=== PATIENT | female | born 1950 | race Caucasian/White ===

== ENCOUNTER → 2020-08-28 14:14 | Outpatient (POV) | payer SELFPAY | PROVIDERS: Visit Provider Dermatology | DX: Z00.00 Encounter for general adult medical examination without abnormal findings (principal) ==

== ENCOUNTER 2021-01-01 22:07 | Observation (INO) | payer MEDICARE, OTHER, SELFPAY ==
[2021-01-01 22:22] VITALS: BP 175/90; PULSE 106; RESP 18; TEMP 37.2; O2SAT 97; BMI 32.5
--- NOTE | 2021-01-01 22:28 | CT_ITS ---
PROCEDURE INFORMATION: Exam: CT Head Without Contrast Exam date and time: 01/01/2021 10:28 PM Age: 70 years old Clinical indication: Dizziness and other: Vomiting; Patient HX: Dizzy and vomiting TECHNIQUE: Imaging protocol: Computed tomography of the head without contrast. Radiation optimization: All CT scans at this facility use at least one of these dose optimization techniques: automated exposure control; mA and/or kV adjustment per patient size (includes targeted exams where dose is matched to clinical indication); or iterative reconstruction. COMPARISON: No relevant prior studies available. FINDINGS: Brain: No acute intracranial hemorrhage, mass effect or edema. No evidence of acute cortical stroke. Periventricular small vessel ischemic change. No midline shift or hydrocephalus. Diffuse parenchymal atrophy. Cerebral ventricles: No ventriculomegaly. Bones/joints: Unremarkable. No acute fracture. Paranasal sinuses: Visualized sinuses are unremarkable. No fluid levels. Mastoid air cells: Visualized sinuses and mastoid air cells are clear. Vasculature: Atherosclerotic calcifications of the carotid siphons and vertebrobasilar arteries. Soft tissues: Unremarkable. IMPRESSION: 1. No evidence of acute intracranial pathology. 2. Diffuse involutional changes and chronic ischemic small vessel white matter disease.
--- NOTE | 2021-01-01 22:28 | XR_ITS ---
PROCEDURE INFORMATION: Exam: XR Chest Exam date and time: 01/01/2021 10:28 PM Age: 70 years old Clinical indication: Other: Dizzy and vomiting; Additional info: Dizziness, nausea TECHNIQUE: Imaging protocol: XR of the chest. Views: 1 view. COMPARISON: No relevant prior studies available. FINDINGS: Lungs: Unremarkable. No consolidation. Pleural spaces: Unremarkable. No pleural effusion. No pneumothorax. Heart/Mediastinum: Unremarkable. No cardiomegaly. Bones/joints: Moderate degenerative changes of the acromioclavicular joints. Degenerative changes of the spine. IMPRESSION: No acute findings.
[2021-01-01 22:37] LABS: Basophils # 0.1 K/mm3 (0-0.2); Basophils % 0.8 % (0.1-2.0); Eosinophils # 0.1 K/mm3 (0.0-0.4); Eosinophils % 1.9 % (0.1-12.0); Hematocrit 37.1 % (37.0-47.0); Hemoglobin 12.2 g/dL (12.2-16.2); Lymphocytes # 1.7 K/mm3 (0.7-4.5); Lymphocytes % 23.1 % (10-50); Mean Corpuscular HGB Conc 32.8 g/dL (31.8-35.4); Mean Corpuscular Hemoglobin 28.5 pg (27.0-31.2); Mean Corpuscular Volume 86.8 fl (81-99); Mean Platelet Volume 7.9 fl (7.4-10.4); Monocytes # 0.3 K/mm3 (0.1-1.0); Monocytes % 3.5 % (1.7-9.3); Neutrophils # 5.4 K/mm3 (1.8-7.8); Neutrophils % 70.8 % (37.0-80.0); Platelet Count 325 K/mm3 (142-424); Red Blood Count 4.27 M/mm3 (4.20-5.40); Red Cell Distribution Width 13.7 % (11.5-17.5); White Blood Count 7.6 K/mm3 (4.8-10.8)
[2021-01-01 22:45] LABS: Alanine Aminotransferase 19 U/L (12-78); Albumin Level 4.4 g/dl (3.5-5.0); Albumin/Globulin Ratio 1.2 (1.1-1.8); Alkaline Phosphatase 127 U/L (38-126); Anion Gap 14.4 mEq/L (5-15); Aspartate Amino Transferase 23 U/L (14-36); Bilirubin,Total 0.6 mg/dl (0.2-1.3); Blood Urea Nitrogen 27 mg/dl (7-17); Calcium 9.2 mg/dl (8.4-10.2); Carbon Dioxide 25 mmol/L (22.0-30.0); Chloride 104 mmol/L (98-107); Creatinine Clearance Estimated 68 mL/min (50-200); Estimated Glomerular Filt Rate 55 ml/min (>60); GFR (African American) 66 ML/MIN (>60); Globulin 3.7 g/dL (1.3-3.2); Glucose 310 mg/dl (74-100); Potassium 4.4 mmoL/L (3.5-5.1); Sodium 139 mmol/L (136-145); Total Protein,Serum 8.1 g/dl (6.3-8.2)
[2021-01-01 23:30] VITALS: BP 171/69; PULSE 85; RESP 16; O2SAT 98
[2021-01-02] VITALS (14 sets, daily range): BP systolic 121–175; BP diastolic 59–88; PULSE 72–101; RESP 16–19; TEMP 36.7–37; O2SAT 93–98; BMI 30.9; BMI 30.8
--- NOTE | 2021-01-02 00:17 | ECG_ITS ---
APPROVED REPORT Exam: Resting ECG HR:91 bpm ECG Measurements Heart Rate 91 AXES NV 142 P 52 QRSd 90 QRS 22 QT 410 T 68 QTc 504 Conclusion Normal sinus rhythm Low voltage QRS Prolonged QT Abnormal ECG Electronically signed by : Jonathan Morrow, 01/05/2021 07:33:30
[2021-01-02 00:53] LABS: Troponin I < 0.01 ng/ml (0.00-0.034)
--- NOTE | 2021-01-02 00:58 | HMH.EDDIZZ ---
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 Diabetes mellitus complication status: with other specified complication Qualified Code(s): E11.69 - Type 2 diabetes mellitus with other specified complication Hypertensive cardiovascular disease Qualifiers: Heart failure presence: unspecified whether heart failure present Qualified Code(s): I11.9 - Hypertensive heart disease without heart failure Disposition: Admitted as Observation Condition on Discharge: Serious Referrals: Cosme Garcia MD [Primary Care Provider] - - Critical Care Critical Care Time: No Attestation: On 01/01/21, the high probability of a clinically significant, sudden or life threatening deterioration of the following system(s) required my full and direct attention, intervention and personal management. The time I documented below is in addition to time spent performing reported procedures but includes the following listed in this critical care notation. Medical Decision Making - Medical Records Medical records reviewed: Yes: I reviewed the patient's medical records. - Dae Inquiry Pt receiving controlled substance: No Vital Signs: 01/01/21 22:22 01/01/21 23:30 01/02/21 00:30 Temperature 98.9 F Temperature Source Temporal Artery Scan Pulse Rate 85 89 Pulse Rate [Right Brachial] 106 H Respiratory Rate 18 16 16 Blood Pressure 171/69 H 163/88 H Blood Pressure [Right Arm] 175/90 H Blood Pressure Mean [Right Arm] 118 Blood Pressure Source Automatic Cuff Automatic Cuff Blood Pressure Source [Right Arm] Automatic Cuff Blood Pressure Position Sitting Sitting Blood Pressure Position [Right Arm] Sitting 02 Sat by Pulse Oximetry 97 98 98 Oxygen Delivery Method Room Air Room Air - Lab Data Lab results reviewed: Yes: I reviewed the patient's lab results. Lab Results 01/01/21 22:25: WBC 7.6, RBC 4.27, Hgb 12.2, Hct 37.1, MCV 86.8, MCH 28.5, MCHC 32.8, RDW 13.7, Plt Count 325, MPV 7.9, Neut % (Auto) 70.8, Lymph % (Auto) 23.1, Harvey % (Auto) 3.5, Eos % (Auto) 1.9, Baso % (Auto) 0.8, Neut # (Auto) 5.4, Lymph # (Auto) 1.7, Harvey # (Auto) 0.3, Eos # (Auto) 0.1, Baso # (Auto) 0.1 01/01/21 22:25: Sodium 139, Potassium 4.4, Chloride 104, Carbon Dioxide 25, Anion Gap 14.4, BUN 27 H, Creatinine 1.00, Estimated Creat Clear 68, Estimated GFR 55 L, Est GFR ( Amer) 66, Glucose 310 H, Calcium 9.2, Total Bilirubin 0.6, AST 23, ALT 19, Alkaline Phosphatase 127 H, Total Protein 8.1, Albumin 4.4, Globulin 3.7 H, Albumin/Globulin Ratio 1.2 01/02/21 00:00: ESR 44 H 01/02/21 00:00: Hemoglobin A1c 10.5 H 01/02/21 22:25: Troponin I < 0.01 Result diagrams: 01/01/21 22:25 01/01/21 22:25 Orders (Tests/Meds): ED MEDICATIONS Generic Name Dose Route Start Last Admin Trade Name Freq PRN Reason Stop Dose Admin Sodium Chloride 1,000 mls @ 999 mls/hr 01/01/21 22:30 01/01/21 22:43 Sod Chlor 0.9% 1000ml Bag IV 01/01/21 23:30 999 mls/hr .Q1H1M MARIE Administration Sodium Chloride 1,000 mls @ 999 mls/hr 01/02/21 03:45 01/02/21 03:40 Sod Chlor 0.9% 1000ml Bag IV 01/02/21 04:45 999 mls/hr .Q1H1M MARIE Administration Discontinued Medications Generic Name Dose Route Start Last Admin Trade Name Freq PRN Reason Stop Dose Admin Iopamidol 100 ml 01/02/21 02:30 Iopamidol-370 (76%);100ml Bottle IV 01/02/21 02:31 ONCE ONE Meclizine HCl 25 mg 01/02/21 00:18 01/02/21 00:26 Meclizine 25mg Tablet PO 01/02/21 00:19 25 mg ONCE ONE Administration Ondansetron HCl 4 mg 01/01/21 22:29 01/01/21 22:42 Ondansetron 4mg/2ml Vial IV 01/01/21 22:30 4 mg ONCE ONE Admi
[2021-01-02 01:24] LABS: Erythrocyte Sedimentation Rate 44 mm/hr (0-30)
--- NOTE | 2021-01-02 01:41 | CT_ITS ---
PROCEDURE INFORMATION: Exam: CT Angiography Neck With Contrast Exam date and time: 01/02/2021 1:41 AM Age: 70 years old Clinical indication: Dizziness and giddiness and other: Vomiting; Patient HX: Dizzy vomiting TECHNIQUE: Imaging protocol: Computed tomography angiography of the neck with contrast. 3D rendering (Not supervised by radiologist): MIP and/or 3D reconstructed images were created by the technologist. Radiation optimization: All CT scans at this facility use at least one of these dose optimization techniques: automated exposure control; mA and/or kV adjustment per patient size (includes targeted exams where dose is matched to clinical indication); or iterative reconstruction. Contrast material: ISOVUE 370; Contrast volume: 100 ml; Contrast route: INTRAVENOUS (IV); COMPARISON: No relevant prior studies available. FINDINGS: Right common carotid artery: No stenosis. No dissection or occlusion. Right internal carotid artery: Atherosclerotic disease within the right-sided internal carotid artery bulb that results in stenosis measuring 80%. There is good distal flow. There is no aneurysm. Right external carotid artery: No occlusion or stenosis of the origin. Right vertebral artery: No stenosis. No dissection or occlusion. Left common carotid artery: No stenosis. No dissection or occlusion. Left internal carotid artery: Atherosclerotic disease within the left-sided internal carotid artery bulb that results in stenosis measuring 90%. There is good distal flow. There is no aneurysm. Left external carotid artery: No occlusion or stenosis of the origin. Left vertebral artery: No stenosis. No dissection or occlusion. Bones/joints: No acute fracture. Soft tissues: Normal. No significant soft tissue swelling. IMPRESSION: 1. Severe atherosclerotic disease within right-sided internal carotid artery bulb that results in stenosis measuring 80%. 2. Severe atherosclerotic disease within left-sided internal carotid artery bulb that results in stenosis measuring 90%. 3. The remainder of the vascular structures are unremarkable. There is no other significant stenosis. There is no occlusion or aneurysm. REFERENCES: NASCET CRITERIA. The degree of internal carotid artery stenosis is based on NASCET criteria. Normal is no stenosis. Mild is less than 50% stenosis. Moderate is 50-69% stenosis. Severe is 70% to 99% stenosis. Total occlusion is no detectable patent lumen.
--- NOTE | 2021-01-02 01:41 | CT_ITS ---
PROCEDURE INFORMATION: Exam: CT Angiography Head With Contrast, Arteriography Exam date and time: 01/02/2021 1:41 AM Age: 70 years old Clinical indication: Dizziness and giddiness and other: Vomiting; Patient HX: Dizzy and vomiting TECHNIQUE: Imaging protocol: Computed tomography angiography of the head with contrast. Exam focused on the arteries. 3D rendering (Not supervised by radiologist): MIP and/or 3D reconstructed images were created by the technologist. Radiation optimization: All CT scans at this facility use at least one of these dose optimization techniques: automated exposure control; mA and/or kV adjustment per patient size (includes targeted exams where dose is matched to clinical indication); or iterative reconstruction. Contrast material: ISOVUE 370; Contrast volume: 100 ml; Contrast route: INTRAVENOUS (IV); COMPARISON: CT HEAD/BRAIN WO CON 01/01/2021 10:50 PM FINDINGS: ANTERIOR CIRCULATION: Right internal carotid artery: Unremarkable. Intracranial segment is patent with no significant stenosis. No aneurysm. Right middle cerebral artery: Unremarkable. No occlusion or significant stenosis. No aneurysm. Right anterior cerebral artery: Unremarkable. No occlusion or significant stenosis. No aneurysm. Left internal carotid artery: Unremarkable. Intracranial segment is patent with no significant stenosis. No aneurysm. Left middle cerebral artery: Unremarkable. No occlusion or significant stenosis. No aneurysm. Left anterior cerebral artery: Unremarkable. No occlusion or significant stenosis. No aneurysm. POSTERIOR CIRCULATION: Right vertebral artery: Unremarkable. No occlusion or significant stenosis. No aneurysm. Left vertebral artery: Unremarkable. No occlusion or significant stenosis. No aneurysm. Basilar artery: Unremarkable. No occlusion or significant stenosis. No aneurysm. Right posterior cerebral artery: Unremarkable. No occlusion or significant stenosis. No aneurysm. Left posterior cerebral artery: Unremarkable. No occlusion or significant stenosis. No aneurysm. Veins: There is no venous sinus thrombosis. Brain: No definite mass, mass effect, or midline shift. Cerebral ventricles: No ventriculomegaly. Bones/joints: Unremarkable. No acute fracture. Soft tissues: Unremarkable. IMPRESSION: No evidence for a embolism, dissection, aneurysm, or venous sinus thrombosis. There is no significant stenosis.
--- NOTE | 2021-01-02 03:00 | PC.NURSE ---
patient to ct
[2021-01-02 04:03] LABS: Hemoglobin A1C 10.5 % (4.0-6.0)
[2021-01-02 05:20] LABS: Troponin I < 0.01 ng/ml (0.00-0.034)
--- NOTE | 2021-01-02 05:32 | PC.NURSE ---
patient up to floor via stretcher.
[2021-01-02 05:38] LABS: INR 0.89 (0.9-1.1); Prothrombin Time 10.6 seconds (10.1-12.5)
--- NOTE | 2021-01-02 08:00 | CA_ITS ---
APPROVED REPORT EXAM: Comprehensive 2D, Doppler, and color-flow Echocardiogram Glue Cook: ANTONELLA Barnes, RVS Ht: 5 ft 3 in Wt: 184lbs BSA: 1.87 BP: 163/88 mmHg Indications: Tia's, Near syncope, carotid stenosis, murmur 2D Dimensions IVSd 1.04 cm LVEF (Visual) 56.70 % PWd 1.04 cm LA Volume 68.50 mL LVDd 4.56 cm LA Volume Index 36.60 mL/m2 (M/F) 16-34 LVDs 3.21 cm LVOT 2.08 cm (M/F) 1.5-2.5 M-Mode Dimensions LA Diam 4.04 cm (1.9-4.0) Ao Diam 3.16 cm (2.0-3.7) EPSs 0.50 cm TAPSE 2.38 (<1.7) LV Diastology E Decel Time 150.00 (160-240 msec) E/A Ratio 2.48 MED E' 8.10 (< 7 cm/sec) MED A' 11.30 cm/s E'/MED E' Ratio 42.64 (>14) LAT E' 8.40 (<10 cm/sec) LAT A' 14.20 cm/s E/LAT E' Ratio 41.12 (>14) Aortic Valve LVOT Max 112.00 (70-110 cm/s) LVOT VTI 22.55 cm AoV Peak Saad. 191.00 (50-130 cm/s) AO Peak GR. 14.60 mmHg AO Mean GR. 8.30 (<5 mmHg) AO VTI 42.33 (18-25 cm) HOME (VTI) 1.81 (2.5-4.5 cm2) Mitral Valve MV E Max Saad. 345.00 (40-130 cm/s) MV A Velocity 139.00 (40-130 cm/s) E/A Ratio 2.48 MV Decel. Time 150.00 (160-240 ms) MV Mean Gr. 3.20 (<2mmHg) MV PHT 44.00 ms Pulmonary Valve PV Peak Velocity 82.00 (50-150 cm/s) Tricuspid Valve TR P. Velocity 286.00 cm/s RAP Estimate 10.00 mmHg RVSP 42.70 mmHg Left Ventricle Left atrium is moderately enlarged, left ventricle is normal size, mild concentric left ventricular hypertrophy, visually estimated ejection fraction 55% with no regional wall motion abnormality, grade 1 diastolic dysfunction seen with tissue Doppler evidence of raise left atrial pressure. Right Ventricle Right atrium and right ventricle are mildly enlarged with normal contractility. Aortic Valve Aortic valve is minimally thickened and fibrosed, there is no aortic stenosis or aortic insufficiency. Mitral Valve Mitral valve has mitral annular calcification, leaflets are minimally thickened, there is moderate mitral regurgitation. Tricuspid Valve Tricuspid grossly normal, there is mild tricuspid regurgitation, calculated right ventricular systolic pressure is 42 mmHg. Pulmonic Valve Pulmonic valve is poorly visualized. Great Vessels Aortic root is normal size. Inferior vena cava is not well visualized. Pericardium No significant pericardial effusion noted. Conclusion 1. Biatrial enlargement, normal left ventricular size, mild concentric left ventricular hypertrophy, visually estimated ejection fraction 55% with no regional wall motion abnormality, grade 1 diastolic dysfunction seen with tissue Doppler evidence of raise left atrial pressure. 2. Mildly enlarged right ventricle with normal contractility. 3. Moderate mitral and mild tricuspid regurgitation, calculated right ventricular systolic pressure is 42 mmHg. 4. No significant pericardial effusion noted. Electronically signed by : Nirav Garcia, 01/03/2021 15:37:31
--- NOTE | 2021-01-02 08:00 | CA_ITS ---
APPROVED REPORT Shader And Toner: [id number] Laterality: Bilateral Study Quality: Technically Limited, Due to body habitus. Indications: tia Risk Factors Hypertension: TIA/CVA History Doppler Spectral Velocity Analysis ECA (R) 138.10/31.50 cm/s ECA (L) 141.60/10.60 cm/s Katelyn (R) 84.70/24.70 cm/s dICA (L) 88.40/37.20 cm/s Katelyn (L) 113.70/44.30 cm/s dCCA (R) 74.80/19.50 cm/s pICA (L) 300.50/92.50 cm/s pCCA (R) 109.10/15.00 cm/s Vert (R) 96.10/21.80 cm/s dCCA (L) 79.90/17.30 cm/s pCCA (L) 67.40/18.30 cm/s Vert (L) 40.60/10.70 cm/s ICA/CCA 3.76 Findings Duplex evaluation demonstrates antegrade flow of the bilateral Vertebral Arteries. Due to carotid bifuracation location, the proxinmal Right Internal carotid artery demonstrates heavy acoustic shadowing and higher percent stenosis cannot be ruled out. CTA calculates an 80% right carotid stenosis. Duplex evaluation demonstrates stenosis of the left proximal internal carotid artery in the range of 70-99% with PSV =140 cm/sec, EDV =100 cm/sec, or IC/CC Ratio =4.0. Conclusion Duplex evaluation demonstrates antegrade flow of the bilateral Vertebral Arteries. Due to carotid bifuracation location, the proxinmal Right Internal carotid artery demonstrates heavy acoustic shadowing and higher percent stenosis cannot be ruled out. CTA calculates an 80% right carotid stenosis. Duplex evaluation demonstrates stenosis of the left proximal internal carotid artery in the range of 70-99% with PSV =140 cm/sec, EDV =100 cm/sec, or IC/CC Ratio =4.0. Electronically signed by : Edvin Frey MD 01/02/2021 16:43:25
[2021-01-02 08:11] LABS: POC Glucose,Bedside 202 (70-110)
--- NOTE | 2021-01-02 08:17 | P.CONPHA_ITS ---
[facility] Pharmacy VTE Monitoring - Patient Demographics Admission date: 01/02/21 Report Date: 01/02/21 Time: 08:17 Allergies/Adverse Reactions: Patient Allergies No Known Allergies Allergy (Verified 06/26/19 18:04) Height: 1.6 m Weight: 79.038 kg Patient Problems: Current Active Problems Transient cerebral ischemia (Acute) Carotid stenosis, bilateral (Acute) Diabetes mellitus (Acute) Hypertensive cardiovascular disease (Acute) Obesity (BMI 30.0-34.9) (Acute) - VTE Risk Labs: VTE Related Lab Results Hgb 12.2 g/dL (12.2-16.2) 01/01/21 22:25 Hct 37.1 % (37.0-47.0) 01/01/21 22:25 Plt Count 325 K/mm3 (142-424) 01/01/21 22:25 PT 10.6 seconds (10.1-12.5) 01/02/21 00:00 INR 0.89 (0.9-1.1) L 01/02/21 00:00 BUN 27 mg/dl (7-17) H 01/01/21 22:25 Creatinine 1.00 mg/dl (0.52-1.04) 01/01/21 22:25 Estimated Creat Clear 68 mL/min (50-200) 01/01/21 22:25 Was VTE Risk Assessment Performed: Yes VTE Score: 1 VTE Risk Level: Very Low Risk Clinical Trial Participant: No - Prophylaxis VTE Prophylaxis Ordered?: Yes Types of VTE Prophylaxis: TEDS Knee High
[2021-01-02 08:44] LABS: Troponin I < 0.01 ng/ml (0.00-0.034)
--- NOTE | 2021-01-02 09:01 | HMH.HP ---
*Admission Date: 01/02/21 <Mira Drummond - 01/02/21 09:18> *Chief complaint: 01/01/2021 <Mira Drummond - 01/02/21 09:18> *History of present illness: Ms. Fernandez is a 70-year-old female with a history of type 2 diabetes mellitus, hypertension, and hyperlipidemia who was brought to the [facility] emergency room for evaluation by her family due to neuro changes. Daughter is is in the room at this time and assist with history of present illness. She states they looked out of the window and saw her mother leaning over steering wheel in her car. When they went to where she was alert but felt dizzy and nauseated. She did vomit. After this she did get out of the car walk around the car and her legs were very weak. She then went home and then when family was talking with her on the phone they found her to have garbled speech at that time they insisted on taking your to the emergency room.Patient states she has had these spells in the past normally with migraines. At that time she has an abrupt onset of the dizziness with nausea and vomiting and cannot see. She did feel that this episode was different. Blood pressure was found to be elevated at home.Leg weakness persisted although she was able to use all her extremities. She did not feel that she had difficulty with speaking and was swallowing as usual. With evaluation in the emergency room Blood pressure initially was 175/90. A1c was noted to be 10.5. She was given 2 L of IV fluids. She was also given meclizine and Zofran along with promethazine.Chest x-ray showed no acute findings. CT of the head showed no evidence of acute intracranial pathology with diffuse involutional changes and chronic ischemia of the small vessel white matter.CT angiogram showed no evidence of embolism dissection or aneurysm or venous sinus thrombosisCT angiogram of the neck revealedSevere atherosclerotic disease with right-sided internal carotid artery bulb that results in stenosis measuring at 80%. Severe atherosclerotic disease within left sided internal carotid artery bulb that results in stenosis measuring 90%. <BhanuMira - 01/02/21 09:18> [facility] History Medical History: Reports:: Diabetes Mellitus Type 2, Hyperlipidemia, Hypertension Denies:: Aneurysm, Anxiety, Arrhythmia, Cancer, Diabetes Mellitus Type 1, MRSA <Mira Drummond 01/02/21 09:18> *Have you ever received a pneumonia vaccine?: Yes <Mira Drummond 01/02/21 09:18> *Have you received a flu vaccine this season?: Yes <DrummondMira 01/02/21 09:18> Other Surgeries: Yes: No Previous Surgery <DrummondMira Tamanna 01/02/21 09:18> Amputation: No <DrummondMira 01/02/21 09:18> Fractures: No <DrummondMira 01/02/21 09:18> - *Social History Last grade of school completed: High school graduate <DrummondMira 01/02/21 09:18> Smoking Status: Never smoker <DrummondMira - 01/02/21 09:18> Alcohol Intake: never <DrummondMira - 01/02/21 09:18> *Occupational Status:: retired <BhanuMira - 01/02/21 09:18> Housing: house <DrummnodMira 01/02/21 09:18> Household Members: family <BhanuMira Tamanna 01/02/21 09:18> *Travel in the last 8 weeks: None <DrummondMira 01/02/21 09:18> Family Hx:: Diabetes <Drummond,Mira 01/02/21 09:18> Review of Systems - Constitutional Denies fever(s) <Drummond,Mira 01/02/21 09:18> - Eyes Reports blurry vision, Reports change in vision <Mira Drummond 01/02/21 09:18> - ENT Reports dizziness, Denies ear pain, Denies sore throat <Mira Drummond 01/02/21 09:18> - *Cardiovascular Denies chest pain, Denies shortness of breath, Denies irregular heart rhythm <Mira Drummond 01/02/21 09:18> - *Respiratory Denies chest congestion, Denies cough, Denies shortness of breath <Mira Drummond 01/02/21 09:18> - *Gastrointestinal Denies abdominal pain, Denies constipation, Denies cramping, Denies loose stools, Denies heartburn <Mira Drummond 01/02/21 09:18> - *Genitourinary Denies diff
--- NOTE | 2021-01-02 10:30 | HMH.PHAINT ---
VERIFIED HOME MEDICATION LIST WITH [employer] MAIL ORDER MEDICATION LIST
[2021-01-02 12:39] LABS: POC Glucose,Bedside 107 (70-110)
--- NOTE | 2021-01-02 16:27 | PC.NURSE ---
Pt has been pleasant and cooperative this shift. A&O X4. No complaints of pain or SOA. Pt is on room air with sats. >90%. Lungs CTA. No edema noted. Skin is C/D/I. Telemetry reveals NSR. Pt ambulates with assistance X1 to/from the bathroom and throughout the room. Urine is clear and yellow. No BM this shift. Appetite is good and pt eats the majority of all meals. FSBS results have been 107 and 326. 20 G peripheral IV in the LT forearm is patent and infusing NS@ 75 ML/HR. VSS. Call light within reach. Will continue to monitor.
[2021-01-02 18:21] LABS: POC Glucose,Bedside 326 (70-110)
[2021-01-02 20:10] LABS: POC Glucose,Bedside 280 (70-110)
[2021-01-03] VITALS: PULSE 80
--- NOTE | 2021-01-03 03:59 | PC.NURSE ---
Cruz 70 y/o female admitted for dizziness and weakness. Patient oriented times four. Patient did not c/o pain this shift. Patient on maintenance fluids 75 ml/hr. Patient stated that she was still slightly dizzy while awake and required the assistance of 1 to ambulate to bathroom. Will continue to monitor for any acute changes.
[2021-01-03 04:00] VITALS: BP 124/82; PULSE 80; PULSE 91; RESP 18; TEMP 36.9; O2SAT 97
[2021-01-03 05:10] VITALS: BMI 31.6
[2021-01-03 06:47] LABS: Basophils # 0.1 K/mm3 (0-0.2); Basophils % 0.6 % (0.1-2.0); Eosinophils # 0.6 K/mm3 (0.0-0.4); Eosinophils % 6.5 % (0.1-12.0); Hemoglobin 10.9 g/dL (12.2-16.2); Lymphocytes # 2.5 K/mm3 (0.7-4.5); Lymphocytes % 29.8 % (10-50); Mean Corpuscular HGB Conc 33.1 g/dL (31.8-35.4); Mean Corpuscular Hemoglobin 28.9 pg (27.0-31.2); Mean Corpuscular Volume 87.4 fl (81-99); Mean Platelet Volume 8.4 fl (7.4-10.4); Monocytes # 0.5 K/mm3 (0.1-1.0); Monocytes % 5.4 % (1.7-9.3); Neutrophils # 4.9 K/mm3 (1.8-7.8); Neutrophils % 57.7 % (37.0-80.0); Platelet Count 292 K/mm3 (142-424); Red Blood Count 3.77 M/mm3 (4.20-5.40); Red Cell Distribution Width 13.8 % (11.5-17.5); White Blood Count 8.4 K/mm3 (4.8-10.8)
[2021-01-03 06:55] LABS: Anion Gap 9.2 mEq/L (5-15); Blood Urea Nitrogen 21 mg/dl (7-17); Carbon Dioxide 24 mmol/L (22.0-30.0); Chloride 108 mmol/L (98-107); Creatinine Clearance Estimated 66 mL/min (50-200); Estimated Glomerular Filt Rate 71 ml/min (>60); GFR (African American) 86 ML/MIN (>60); Glucose 210 mg/dl (74-100); Potassium 4.2 mmoL/L (3.5-5.1); Sodium 137 mmol/L (136-145)
[2021-01-03 07:02] LABS: Calcium 8.2 mg/dl (8.4-10.2)
[2021-01-03 07:58] LABS: POC Glucose,Bedside 214 (70-110)
[2021-01-03 08:00] VITALS: BP 121/67; PULSE 80; PULSE 90; RESP 18; TEMP 36.8; O2SAT 97
--- NOTE | 2021-01-03 08:40 | HMH.ACPN2 ---
<Yanet Mcdowell - Last Filed: 01/03/21 08:40> Internal Medicine - PN: Subj *Date: 01/03/21 *Time: 08:40 Interval history: Patient is feeling much better today. She denies any pain and states she slept well last night. She is tolerating her diet. She states she feels like she had heatstroke and this is what caused most of her symptoms. She is anxious for discharge today. Exam Vital signs and Labs for Last 24 Hours: Temp Pulse Resp BP Pulse Ox 98.3 F 90 18 121/67 97 01/03/21 08:00 01/03/21 08:00 01/03/21 08:00 01/03/21 08:00 01/03/21 08:00 Laboratory Results - last 24 hr 01/02/21 08:08: Troponin I < 0.01 01/02/21 12:18: POC Glucose 107 01/02/21 16:00: POC Glucose 326 H* 01/02/21 19:46: POC Glucose 280 H 01/03/21 05:27: POC Glucose 214 H 01/03/21 06:12: WBC 8.4, RBC 3.77 L, Hgb 10.9 L, Hct 33.0 L, MCV 87.4, MCH 28.9, MCHC 33.1, RDW 13.8, Plt Count 292, MPV 8.4, Neut % (Auto) 57.7, Lymph % (Auto) 29.8, Duval % (Auto) 5.4, Eos % (Auto) 6.5, Baso % (Auto) 0.6, Neut # (Auto) 4.9, Lymph # (Auto) 2.5, Duval # (Auto) 0.5, Eos # (Auto) 0.6 H, Baso # (Auto) 0.1 01/03/21 06:12: Sodium 137, Potassium 4.2, Chloride 108 H, Carbon Dioxide 24, Anion Gap 9.2, BUN 21 H, Creatinine 0.80, Estimated Creat Clear 66, Estimated GFR 71, Est GFR ( Amer) 86 D, Glucose 210 H, Calcium 8.2 L D I & O for Last 24 hours: Intake & Output 12/31/20 01/01/21 01/02/21 01/03/21 11:59 11:59 11:59 11:59 Intake Total 2500 / 2500 2690 / 2690 Balance 2500 / 2500 2690 / 2690 Weight 174 lb 4 oz 178 lb 4 oz Microbiology Reports for the Last 24 Hours: Microbiology 01/02/21 02:05 Nasopharyngeal Coronavirus COVID-19 PCR - Final - Constitutional no acute distress - *Routine Respiratory Exam Present: CTA bilaterally - *Routine Cardiovascular Exam Present: RRR - *Routine Abdominal Exam Present: soft, normoactive bowel sounds. Absent: tenderness - *Routine Extremities Exam Absent: cyanosis, clubbing, edema - *Routine Skin Exam Present: warm. 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 Diabetes mellitus complication status: with other specified complication Qualified Code(s): E11.69 - Type 2 diabetes mellitus with other specified complication Category: Medical Code(s): E11.9 - Type 2 diabetes mellitus without complications (3) Hypertensive cardiovascular disease Status: Chronic Qualifiers: Heart failure presence: unspecified whether heart failure present Qualified Code(s): I11.9 - Hypertensive heart disease without heart failure Category: Medical Code(s): I11.9 - Hypertensive heart disease without heart failure (4) Obesity (BMI 30.0-34.9) Status: Chronic Category: Medical Code(s): E66.9 - Obesity, unspecified (5) Transient cerebral ischemia Status: Acute Qualifiers: Transient cerebral ischemia type: unspecified Qualified Code(s): G45.9 - Transient cerebral ischemic attack, unspecified Category: Medical Code(s): G45.9 - Transient cerebral ischemic attack, unspecified (6) Hyperlipidemia Status: Acute Category: Medical Code(s): E78.5 - Hyperlipidemia, unspecified - Assessment and plan all Dx Assessment and Plan for all problems:: Can likely discharge today and will need follow-up in [place] due to her carotid stenosis. <Cosme Garcia - Last Filed: 01/03/21 08:54> Internal Medicine - PN: Subj *Date: 01/03/21 *Time: 08:53 Exam Vital signs and Labs for Last 24 Hours: Temp Pulse Resp BP Pulse Ox 98.3 F 90 18 121/67 97 01/03/21 08:00 01/03/21 08:00 01/03/21
--- NOTE | 2021-01-04 08:27 | HMH.DCSUM ---
General - General Admission date:: 01/02/21 Discharge date: 01/03/21 HPI HPI: Ms. Fernandez is a 70-year-old female with a history of type 2 diabetes mellitus, hypertension, and hyperlipidemia who was brought to the [facility] emergency room for evaluation by her family due to neuro changes. Daughter is is in the room at this time and assist with history of present illness. She states they looked out of the window and saw her mother leaning over steering wheel in her car. When they went to where she was alert but felt dizzy and nauseated. She did vomit. After this she did get out of the car walk around the car and her legs were very weak. She then went home and then when family was talking with her on the phone they found her to have garbled speech at that time they insisted on taking your to the emergency room.Patient states she has had these spells in the past normally with migraines. At that time she has an abrupt onset of the dizziness with nausea and vomiting and cannot see. She did feel that this episode was different. Blood pressure was found to be elevated at home.Leg weakness persisted although she was able to use all her extremities. She did not feel that she had difficulty with speaking and was swallowing as usual. With evaluation in the emergency room Blood pressure initially was 175/90. A1c was noted to be 10.5. She was given 2 L of IV fluids. She was also given meclizine and Zofran along with promethazine.Chest x-ray showed no acute findings. CT of the head showed no evidence of acute intracranial pathology with diffuse involutional changes and chronic ischemia of the small vessel white matter. CT angiogram showed no evidence of embolism dissection or aneurysm or venous sinus thrombosis. CT angiogram of the neck revealed severe atherosclerotic disease with right-sided internal carotid artery bulb that results in stenosis measuring at 80%. Severe atherosclerotic disease within left sided internal carotid artery bulb that results in stenosis measuring 90%. Hospital Course Hospital Course: Patient was admitted and started on IV fluids, meclizine, and Zofran. Her blood pressure did improve. An echo and carotid ultrasound were both ordered and she was started on sliding scale insulin. Her carotid ultrasound showed 80% stenosis on the right and 70 to 99% on the left. Her echo showed an EF of 55% with grade 1 diastolic dysfunction and a right ventricular systolic pressure of 42 mmHg. By 01/03/2021, the patient felt much better she denied any pain and slept well. She was tolerating her diet. She was up and moving around her room and had no further dizziness or headache. She attributed her symptoms to heatstroke as she had been mowing about 4 acres before she started feeling bad. She was anxious for discharge. Her blood pressure was well controlled and she was asymptomatic, therefore she was stable to be discharged and will follow up in the office of [facility]. She will need evaluation of her carotid artery stenosis on an outpatient basis. Objective Vital signs: Temp Pulse Resp BP Pulse Ox 98.3 F 90 18 121/67 97 01/03/21 08:00 01/03/21 08:00 01/03/21 08:00 01/03/21 08:00 01/03/21 08:00 Narrative: - Constitutional no acute distress <Mira Drummond - 01/02/21 09:18> Comments: Lying still in the bed with her eyes closed.. With movement she becomes dizzy and nauseated. The light hurts her eyes. - *Routine HEENT Exam Head: Present: normocephalic, atraumatic Eye: Present: PERRL. Absent: conjunctival icterus, scleral injection ENT: Present: mucous membranes moist, oropharynx clear - *Routine Neck Exam Present: supple. Absent: carotid bruit, lymphadenopathy, thyromegaly - *Routine Respiratory Exam Present: CTA bilaterally (Anteriorly and posteriorly) - *Routine Cardiovascular Exam Present: RRR - *Routine Abdominal Exam Present: soft
== END 2021-01-03 11:35 | disposition home or self-care (01) ==
LOC: ER 01-02 04:29 → 2ND 01-02 04:55
PROVIDERS: Admitting Provider Family Medicine; Emergency Provider Emergency Medicine; PCP Family Medicine; Visit Provider Family Medicine
DX: I65.23 Occlusion and stenosis of bilateral carotid arteries (principal); Z68.31 Body mass index [BMI] 31.0-31.9, adult; E11.69 Type 2 diabetes mellitus with other specified complication; I10 Essential (primary) hypertension; Z79.84 Long term (current) use of oral hypoglycemic drugs; E78.5 Hyperlipidemia, unspecified
CPT/HCPCS: 36415; 70450; 70496; 70498; 71045; 80048; 80053; 82962; 83036; 84484; 85025; 85610; 85651; 93005; 93306; 93880; 96365; 99284; G0378; J2405; U0003

== ENCOUNTER 2021-01-25 11:30 | Emergency (ER) | payer MEDICARE, OTHER, SELFPAY ==
[2021-01-25 11:32] VITALS: BP 152/87; PULSE 96; RESP 18; TEMP 36.7; O2SAT 98; BMI 31.1
--- NOTE | 2021-01-25 11:33 | PC.NURSE ---
DENIS MITCHELL at assessing pt ER explained to pt/family that pt would need to be transferred r/t we are unable to do a CT on pt at this time. pt is verbalizes understanding and is agreeable to transfer.
--- NOTE | 2021-01-25 11:38 | HMH.EDGENADL ---
ED Disposition Clinical Impression: Cerebrovascular accident Qualifiers: CVA mechanism: unspecified Qualified Code(s): I63.9 - Cerebral infarction, unspecified Disposition: Xfer Short-Term Hosp Condition on Discharge: Fair - Critical Care Critical Care Time: Yes Attestation: On 01/25/21, the high probability of a clinically significant, sudden or life threatening deterioration of the following system(s) required my full and direct attention, intervention and personal management. The time I documented below is in addition to time spent performing reported procedures but includes the following listed in this critical care notation. Total Critical Care Time: 30 Vital system(s) involved:: Circulatory Failure, Central Nervous System, Respiratory Failure My critical care processes included: Assessment & monitoring of V/S, Initial and Re-exams, Data Review/Interpretation, Coordinating Care, Medication Orders and management, Documentation Medical Decision Making - Medical Records Medical records reviewed: Yes: I reviewed the patient's medical records. - Dae Inquiry Pt receiving controlled substance: No Vital Signs: 01/25/21 11:32 Temperature 98.1 F Temperature Source Oral Pulse Rate [Right Radial] 96 H Respiratory Rate 18 Blood Pressure [Right Arm] 152/87 H Blood Pressure Mean [Right Arm] 108 Blood Pressure Source [Right Arm] Automatic Cuff Blood Pressure Position [Right Arm] Sitting 02 Sat by Pulse Oximetry 98 Oxygen Delivery Method Room Air - Lab Data Lab Results 01/25/21 11:39: POC Glucose 204 H Medical Decision Narrative: Patient here with altered sensation left lower face, known recently diagnosed carotid artery disease. Concern for possible TIA. She does not have involvement of the forehead, unlikely Capellan's palsy. She is well out of the TPA window. Unfortunately our CT scanner is down, so we will need to transfer her to a facility with appropriate imaging capabilities. They prefer . [facility]inger[facility] 204. Contacted neurology at , Dr. Mac , who recommended sending to as a stroke alert. General Adult HPI - General Stated complaint: mouth numbness Time Seen by Provider: 01/25/21 11:39 Mode of Arrival: Ambulatory Source of Information: Patient Limitations: No Limitations - History of Present Illness HPI narrative: A 70-year-old female with a past medical history significant for hypertension, hyperlipidemia, DM who takes baby aspirin daily, no other anticoagulation or antiplatelet therapy, who presents to the emergency department for left lower face numbness that she noticed at around 730 this morning when she woke up. Last known normal was at 12:30 AM when she went to bed last night. No recent head injuries, no history of brain cancer or surgery. She was recently diagnosed with bilateral carotid artery stenosis (saw PCP for recent syncopal episode while working in the heat, imaging showed carotid artery stenosis and was subsequently referred to Dr. Esquivel) and was told that she needs a carotid endarterectomy, but that surgery is not yet planned. She denies any lateralizing motor or sensory changes in her extremities. Symptoms have improved since 730 this morning, but she still does not feel normally on the left lower half of her face. She also feels like her head is heavy and feels fatigued. Daughter notes that her smile was asymmetrical this morning. No recent fevers, vomiting, diarrhea or urinary symptoms. - Related Data Home Medications Medication Instructions Recorded Confirmed Atorvastatin Calcium [Lipitor 40mg 40 mg PO HS 01/02/21 01/02/21 Tab] Lisinopril/Hydrochlorothiazide 1 tab PO DAILY 01/02/21 01/02/21 [Lisinopril-Hctz 20-12.5 mg Tab*] Metformin HCl [Metformin 1000mg 1,000 mg PO BID 01/02/21 01/02/21 Tablets] glipiZIDE [Glipizide ER] 10 mg PO BID 01/02/21 01/02/21 Allergies Allergy/AdvReac Type Severity Reaction Status Date / Time No Known Aller
--- NOTE | 2021-01-25 11:39 | PC.NURSE ---
fsbs 204
--- NOTE | 2021-01-25 11:41 | PC.NURSE ---
contacted [facility] to speak with stroke team
[2021-01-25 11:45] LABS: POC Glucose,Bedside 204 (70-110)
--- NOTE | 2021-01-25 11:52 | PC.NURSE ---
DENIS MITCHELL speaking with Dr. Mac at
--- NOTE | 2021-01-25 11:54 | PC.NURSE ---
notified [facility] of transfer
--- NOTE | 2021-01-25 12:06 | PC.NURSE ---
report called to tank hoffmann rn at er
--- NOTE | 2021-01-25 12:12 | PC.NURSE ---
report given to [facility]
[2021-01-25 12:13] VITALS: BP 177/95; PULSE 92; RESP 18; TEMP 36.7; O2SAT 96
== END 2021-01-25 12:12 | disposition short-term general hospital (02) ==
PROVIDERS: Emergency Provider Emergency Medicine; PCP Family Medicine
DX: I63.9 Cerebral infarction, unspecified (principal); R29.701 NIHSS score 1; I10 Essential (primary) hypertension; E78.5 Hyperlipidemia, unspecified; I65.23 Occlusion and stenosis of bilateral carotid arteries; Z79.899 Other long term (current) drug therapy
CPT/HCPCS: 82962; 93005; 99283

== ENCOUNTER 2021-10-18 09:47 | Emergency (ER) | payer MEDICARE, SELFPAY ==
[2021-10-18 10:05] VITALS: BP 156/78; PULSE 93; RESP 18; TEMP 36.7; O2SAT 98; BMI 30.9
[2021-10-18 10:19] VITALS: BP 156/78; PULSE 93; RESP 18; TEMP 36.7; O2SAT 98
--- NOTE | 2021-10-18 10:19 | HMH.EDUTC ---
[facility] [place] Disposition Clinical Impression: Encounter for laboratory testing for COVID-19 virus Disposition: Home, Self-Care Condition on Discharge: Good Instructions: DI for COVID-19 (Suspected or Confirmed ), Preventing the Spread of Coronavirus Discharge Instructions Referrals: Cosme Garcia MD [Primary Care Provider] - As needed Medical Decision Making - Dae Inquiry Pt receiving controlled substance: No Dae was queried for this patient: No Vital Signs: 10/18/21 10:05 Temperature 98.1 F Temperature Source Oral Pulse Rate [Right Brachial] 93 H Respiratory Rate 18 Blood Pressure [Right Arm] 156/78 H Blood Pressure Mean [Right Arm] 104 Blood Pressure Source [Right Arm] Automatic Cuff Blood Pressure Position [Right Arm] Sitting 02 Sat by Pulse Oximetry 98 Oxygen Delivery Method Room Air [facility] [place] HPI - General Stated complaint: covid test for procedure Time Seen by Provider: 10/18/21 10:19 Mode of Arrival: Ambulatory Source of Information: Patient Limitations: No Limitations Description of Symptoms (Recalled from Triage Doc. by RN): PATIENT NEEDING COVID TEST FOR SURGERY HEENT Symptoms (Recalled from RN notes): No Resp Symptoms (Recalled from RN notes): No Skin Symptoms (Recalled from RN notes): No MS Symptoms (Recalled from RN notes): No Functional Status (Recalled from RN notes): WNL - History of Present Illness Provider Complaint: Patient states that she was needing a COVID test for surgery States that she is not having any symptoms and but needed to get the test - Related Data Home Medications Medication Instructions Recorded Confirmed Atorvastatin Calcium [Lipitor 40mg 40 mg PO HS 01/02/21 01/02/21 Tab] Lisinopril/Hydrochlorothiazide 1 tab PO DAILY 01/02/21 01/02/21 [Lisinopril-Hctz 20-12.5 mg Tab*] Metformin HCl [Metformin 1000mg 1,000 mg PO BID 01/02/21 01/02/21 Tablets] glipiZIDE [Glipizide ER] 10 mg PO BID 01/02/21 01/02/21 Allergies Allergy/AdvReac Type Severity Reaction Status Date / Time No Known Allergies Allergy Verified 06/26/19 18:04 - Worker's Comp Is this a Worker's Comp case?: No [facility] History - Hepatitis A Screen Drug use history?: No High risk sexual behaviors?: No History of sexually transmitted infection?: No Currently employed?: No Childcare worker?: No Do you have indoor plumbing?: Yes Do you have electricity?: Yes Attestation statement:: This patient has been screened for Hepatitis A risk factors. I have reviewed the patient's past medical history: Yes Medical History: Reports:: Diabetes Mellitus Type 2, Hyperlipidemia, Hypertension Denies:: Aneurysm, Anxiety, Arrhythmia, Cancer, Diabetes Mellitus Type 1, MRSA Other Surgeries: Yes: No Previous Surgery Amputation: No Fractures: No - Social History Smoking Status: Never smoker Alcohol Intake: never Occupational Status: retired Housing: house Household Members: family - Psychiatric History Pschychiatric History:: Denies:: Anxiety Family Hx:: Diabetes ROS Obtained: Yes All systems reviewed & no additional complaints, Yes Systems reviewed as appropriate & no additional complaints - Constitutional Constitutional: Reports system reviewed and no additional complaints, except as docu, Denies body ache, Denies chills, Denies fever(s) - ENT Ears, Nose, Mouth, and Throat: Reports system reviewed and no additional complaints, except as docu - Cardiovascular Cardiovascular: Reports system reviewed and no additional complaints, except as docu - Respiratory Respiratory: Reports system reviewed and no additional complaints, except as docu - Gastrointestinal Gastrointestingal: Reports: system reviewed and no additional complaints, except as docu Physical Exam - General General appearance: alert, in no apparent distress - Respiratory Respiratory exam: Present: normal lung sounds bilaterally. Absent: respiratory distress - Cardiovascular Cardiovascular exam: Present: regu
== END 2021-10-18 10:23 | disposition home or self-care (01) ==
PROVIDERS: Emergency Provider Nurse Practitioner; PCP Family Medicine
DX: Z11.52 Encounter for screening for COVID-19 (principal)
CPT/HCPCS: G0463; 99211; C9803; U0003; U0005

== ENCOUNTER → 2021-12-30 09:19 | Outpatient (CLI) | payer MEDICARE, SELFPAY ==
--- NOTE | 2021-12-30 09:28 | MM_ITS ---
PROCEDURE INFORMATION: Exam: MG Bilateral Screening 3D Mammography Exam date and time: 12/30/2021 9:34 AM Age: 71 years old Clinical indication: Screening examination TECHNIQUE: Imaging protocol: Bilateral Screening tomosynthesis and 2D mammography including computer-aided detection (CAD) when performed. COMPARISON: 1. MG DMSB DIG MAMM-SCREEN GAEL W/CAD 12/29/2016 10:00 AM 2. MG DMSB DIGITAL MAMM-SCREEN BILATERAL 09/12/2011 9:14 AM 3. 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 OT DIGMAMMS MAMMOGRAM SCREEN-POWER TRUCK DRIVER N/C 07/02/2004 10:17 AM FINDINGS: MAMMOGRAPHY: Breast composition: There are scattered areas of fibroglandular density. Mass: None. Architectural distortion: None. Calcifications: No suspicious calcifications. Asymmetric density: None. Skin thickening: None. Axillary adenopathy: None. IMPRESSION: No mammographic evidence of malignancy. Annual screening is recommended unless otherwise clinically indicated. ASSESSMENT: BI-RADS Category 1: Negative
--- NOTE | 2021-12-30 09:29 | XR_ITS ---
FINAL REPORT TECHNIQUE: Bone densitometry calculations of the lumbar spine and left hip were obtained. CLINICAL HISTORY: .osteopenia FINDINGS: Using L1-4, the bone mineral density of the spine is 0.950 g/cm2, corresponding to T-score of -0.4 which is normal. Using the left hip, the bone mineral density of the femoral neck is 0.890 g/cm2, corresponding to a T-score of 0.4 which is normal. NOTE: T-score: Standard deviation compared with peak bone mass of young adult mean. *Following the recommendations of the International Society of Bone densitometry, classification of hip BMD is based on the lower of two T-scores; total hip or femoral neck. IMPRESSION: Normal bone mineral density of the lumbar spine and hip. Reviewed, Interpreted and Dictated by Kiley Mcgee MD Transcribed by Tiara Carroll Authenticated by Kiley Mcgee MD on 12/30/2021 12:10:44 PM [facility]
== END ==
PROVIDERS: PCP Family Medicine; Visit Provider Physician Assistant
DX: Z12.31 Encounter for screening mammogram for malignant neoplasm of breast (principal); Z78.0 Asymptomatic menopausal state
CPT/HCPCS: 77063; 77067; 77080

== ENCOUNTER 2023-03-25 20:02 | Emergency (ER) | payer MEDICARE, OTHER, SELFPAY ==
--- NOTE | 2023-03-25 20:20 | HMH.EDGENADL ---
Discharge Plan Disposition Chief Complaint: Nausea/Vomiting/Diarrhea Prescriptions Prescriptions: No Action atorvastatin 80 mg tablet 80 mg PO DAILY lisinopril 10 mg tablet 10 mg PO DAILY Ozempic 0.25 mg or 0.5 mg(2 mg/1.5 mL) pen injector SQ (DME) pen needle, diabetic [Droplet Pen Needle] 31 gauge x 5/16 needle See Rx Instructions .ROUTE .MEDSUPPLY Qty: 1200 Rx Instructions: As directed (DME) Accu-Chek Amanda Plus test strp Strip See Rx Instructions .ROUTE .MEDSUPPLY Qty: 10 Rx Instructions: As directed clopidogrel 75 mg tablet 75 mg PO DAILY (DME) lancets [Accu-Chek Softclix Lancets] Misc See Rx Instructions .ROUTE .MEDSUPPLY Qty: 100 Rx Instructions: As directed Jardiance 10 mg tablet 10 mg PO DAILY glipizide 10 MG tablet extended release 24hr 10 mg PO BID metformin 1,000 MG tablet 1,000 mg PO BID Referrals Follow up/Referrals: Cosme Garcia MD [Primary Care Provider] - See instructions Instructions Patient Instructions: DI for Nausea -- Adult, DI for Nausea -- Child, DI for Diarrhea and Traveler's Diarrhea -- Adult, DI for Diarrhea and Traveler's Diarrhea -- Child Discharge ED Provider: Martin Méndez General Adult HPI General Chief complaint: Nausea/Vomiting/Diarrhea Stated complaint: vomiting, SALCEDO, Time Seen by Provider: 03/25/23 20:11 History of Present Illness HPI narrative: 72-year-old female history of carotid stenosis status post bilateral endarterectomy last year on aspirin and Plavix, history of TIA, history of hypertension presents for multiple complaints. She reports that she has had head pressure, nausea, vomiting, sensitivity to light and noise since approximately 730 yesterday. Reports symptoms were relatively quick in onset. Patient reports that she has had migraines in the past and this feels somewhat similar but she does not get them frequently and has not had one for a long time. She reports that symptoms were not improved at home with sleeping, she did not take any medications. She reports no abdominal pain chest pain shortness of breath dizziness fever chills or urinary symptoms. Related Data Home Medications Medication Instructions Recorded Confirmed glipizide 10 mg tablet, extended 10 mg PO BID Diabetes 01/02/21 04/21/22 release 24 hr metformin 1,000 mg tablet 1,000 mg PO BID Diabetes 01/02/21 04/21/22 atorvastatin 80 mg tablet 80 mg PO DAILY 02/03/22 04/21/22 blood sugar diagnostic (Accu-Chek #10 ea 02/03/22 04/21/22 Amanda Plus test strips) clopidogrel 75 mg tablet 75 mg PO DAILY 02/03/22 04/21/22 empagliflozin 10 mg tablet 10 mg PO DAILY 02/03/22 04/21/22 (Jardiance) lancets (Accu-Chek Softclix #100 ea 02/03/22 04/21/22 Lancets) lisinopril 10 mg tablet 10 mg PO DAILY 02/03/22 04/21/22 pen needle, diabetic 31 gauge x #1,200 02/03/22 04/21/22/16 (Droplet Pen Needle) semaglutide 0.25 mg or 0.5 mg (2 mg SQ 02/03/22 04/21/22 mg/1.5 mL) subcutaneous pen injector ([employer]) Allergies Allergy/AdvReac Type Severity Reaction Status Date / Time No Known Allergies Allergy Verified 04/21/22 13:31 [facility] Disclaimer: The information contained in this section may have been updated after the patient was seen, as this information can be updated by other users. Medical History (Updated 04/21/22 @ 13:51 by Jennie Muñoz APRN) Diabetes mellitus Hyperlipidemia Hypertensive cardiovascular disease Vocal cord paralysis Family History Other Diabetes Social History Smoking Status: Never smoker alcohol intake: never current occupational status: retired Travel in the last 8 weeks: None household members: family housing: house current occupational exposures/hazards: No caffeine: Yes ROS Obtained: Yes All systems reviewed & no add
[2023-03-25 20:24] VITALS: BP 174/93; PULSE 120; RESP 18; O2SAT 95
[2023-03-25 20:30] VITALS: BP 157/86; PULSE 115; RESP 20; O2SAT 94
[2023-03-25 20:33] LABS: Basophils % 0.4 % (0.1-2.0); Eosinophils # 0.1 K/mm3 (0.0-0.4); Eosinophils % 1.2 % (0.1-12.0); Hematocrit 44.1 % (37.0-47.0); Hemoglobin 14.3 g/dL (12.2-16.2); Lymphocytes # 2.7 K/mm3 (0.7-4.5); Lymphocytes % 26.6 % (10-50); Mean Corpuscular HGB Conc 32.4 g/dL (31.8-35.4); Mean Corpuscular Volume 92.4 fl (81-99); Mean Platelet Volume 7.6 fl (7.4-10.4); Monocytes # 0.4 K/mm3 (0.1-1.0); Monocytes % 4.1 % (1.7-9.3); Neutrophils # 6.9 K/mm3 (1.8-7.8); Neutrophils % 67.8 % (37.0-80.0); Platelet Count 292 K/mm3 (142-424); Red Blood Count 4.77 M/mm3 (4.20-5.40); Red Cell Distribution Width 13.7 % (11.5-17.5); White Blood Count 10.2 K/mm3 (4.8-10.8)
--- NOTE | 2023-03-25 20:39 | CT_ITS ---
PROCEDURE INFORMATION: Exam: CT Head Without Contrast Exam date and time: 03/25/2023 8:50 PM Age: 72 years old Clinical indication: Pain; Other: N/v; Headache; Additional info: Headache nausea vomiting TECHNIQUE: Imaging protocol: Computed tomography of the head without contrast. Radiation optimization: All CT scans at this facility use at least one of these dose optimization techniques: automated exposure control; mA and/or kV adjustment per patient size (includes targeted exams where dose is matched to clinical indication); or iterative reconstruction. REPORTING DATA: Count of CT and Cardiac NM exams in prior 12 months: This patient has received 0 known CTs and 0 known cardiac nuclear medicine studies in the 12 months prior to the current study. COMPARISON: CT HEAD/BRAIN WO CON 01/01/2021 10:50 PM FINDINGS: Brain: No acute intracranial hemorrhage, acute large territory infarct, or obvious mass lesion. Age appropriate diffuse cerebral volume loss. Mild chronic white matter changes, likely to be chronic small vessel ischemic changes. Cerebral ventricles: No ventriculomegaly. Paranasal sinuses: Opacification of some of the left posterior ethmoid air cells. Otherwise clear. Mastoid air cells: Visualized mastoid air cells are well aerated. Bones/joints: Unremarkable. No acute fracture. Soft tissues: Unremarkable. IMPRESSION: No acute intracranial abnormality.
[2023-03-25 20:40] LABS: Chloride 103 mmol/L (98-107); Potassium 4.2 mmoL/L (3.5-5.1); Sodium 142 mmol/L (136-145)
[2023-03-25 20:43] VITALS: BP 194/101; PULSE 124; RESP 18; TEMP 36.8; O2SAT 98; BMI 29.2
[2023-03-25 20:43] LABS: Alanine Aminotransferase 29 U/L (12-78); Albumin Level 4.4 g/dl (3.5-5.0); Albumin/Globulin Ratio 1.1 (1.1-1.8); Alkaline Phosphatase 155 U/L (38-126); Anion Gap 20.2 mEq/L (5-15); Aspartate Amino Transferase 32 U/L (14-36); Blood Urea Nitrogen 22 mg/dl (7-17); Carbon Dioxide 23 mmol/L (22.0-30.0); Estimated Glomerular Filt Rate 61 ml/min (>60); GFR (African American) 74 ML/MIN (>60); Globulin 4.1 g/dL (1.3-3.2); Total Protein,Serum 8.5 g/dl (6.3-8.2)
[2023-03-25 20:44] LABS: Calcium 10.2 mg/dl (8.4-10.2); Glucose 238 mg/dl (74-100)
[2023-03-25 21:00] VITALS: BP 152/81; PULSE 103; RESP 20; O2SAT 95
[2023-03-25 21:30] VITALS: BP 129/62; PULSE 94; RESP 18; O2SAT 97
--- NOTE | 2023-03-25 22:01 | ECG_ITS ---
APPROVED REPORT Exam: Resting ECG HR:95 bpm ECG Measurements Heart Rate 95 AXES KS 144 P 61 QRSd 106 QRS 58 QT 392 T 16 QTc 445 Conclusion SINUS RHYTHM Late R wave progression Low voltages Old isoated Q in III BORDERLINE ECG UNCONFIRMED REPORT Electronically signed by : Jonathan Morrow MD 03/27/2023 08:42:19
[2023-03-25 22:29] LABS: Troponin I < 0.01 ng/ml (0.00-0.034)
[2023-03-26 01:35] LABS: Troponin I 0.02 ng/ml (0.00-0.034)
[2023-03-26 02:17] VITALS: BP 138/74; PULSE 96; RESP 16; TEMP 36.7; O2SAT 96
== END 2023-03-26 02:18 | disposition home or self-care (01) ==
PROVIDERS: Emergency Medicine; Emergency Provider Emergency Medicine; PCP Family Medicine
DX: R51.9 Headache, unspecified (principal); R11.2 Nausea with vomiting, unspecified; H53.149 Visual discomfort, unspecified; E11.9 Type 2 diabetes mellitus without complications; E78.5 Hyperlipidemia, unspecified; I10 Essential (primary) hypertension; I65.29 Occlusion and stenosis of unspecified carotid artery; Z79.02 Long term (current) use of antithrombotics/antiplatelets; Z79.82 Long term (current) use of aspirin
CPT/HCPCS: 70450; 80053; 84484; 85025; 93005; 96361; 96374; 96375; 99285; J0131; J1790; J2405

== ENCOUNTER 2023-06-30 07:40 | Day surgery (SDC) | payer MEDICARE, OTHER, SELFPAY ==
[2023-06-30 08:06] VITALS: BP 147/74; PULSE 87; RESP 18; TEMP 36.3; O2SAT 98; BMI 29.2
--- NOTE | 2023-06-30 08:13 | HMH.SCOPE ---
Procedure: Date: 06/30/23 Patient Date of :: 1950 Procedure Performed:: Colonoscopy with polypectomy Indications:: Positive Cologuard Performing Provider:: Ronn Goodman MD Referring Provider:: . Sedation:: Monitored anesthesia care Procedure:: After informed consent was obtained the patient was taken to the endoscopy suite. Sedation ensued after the patient was transferred to the left lateral decubitus position. Pulse, blood pressure, and oxygen saturation were monitored throughout the procedure. Digital rectal exam revealed no significant abnormality. The colonoscope was placed in position. The entire colon was evaluated. The colonoscope was carefully removed and the patient was transferred to recovery in stable condition. Please see findings and specimens below for detail. Findings:: Bowel preparation fair Hemorrhoidal tag/cushions Fairly significant tortuosity and spasticity Sigmoid diverticulosis Polyps (see specimens) Specimens:: Adjacent polyps at 10 cm (cold snare) Recommendations:: Timing of repeat colonoscopy is pending pathology will likely be around 2-3 years secondary to positive Cologuard and spasticity/tortuosity. Consider barium enema in near future secondary to recent positive Cologuard without concomitant large complex lobulated polyp or obvious neoplastic change per colonoscopy. Complications:: No immediate Estimated blood obtained (mL): 1 Colonoscopy Component Colonoscopy Component Was a colonoscopy performed during today's procedure?: Yes Recommended follow up colonoscopy of at least 10 years?: No If no, follow up colonoscopy recommended in ___ years?: (See above) Reason for not recommending >/= 10 yr follow-up interval?: (See above)
[2023-06-30 08:24] LABS: POC Glucose,Bedside 267 (70-110)
--- NOTE | 2023-06-30 08:29 | P.PNANES_ITS ---
[facility] Disclaimer: The information contained in this section may have been updated after the patient was seen, as this information can be updated by other users. Medical History Diabetes mellitus Hyperlipidemia Hypertensive cardiovascular disease Vocal cord paralysis Surgical History History of carotid endarterectomy Family History Other Diabetes Social History Smoking Status: Never smoker alcohol intake: never substance use type: denies use current occupational status: retired Travel in the last 8 weeks: None household members: family housing: house current occupational exposures/hazards: No caffeine: Yes [facility] Anesthesia Checklist Patient Identification Patient Identification: Arm Band Structural Data Admitted From: Home Planned Operative Procedure/s: colonoscopy Consent for Planned Operative Procedure(s) Verified: Yes Verified Documents: Surgical Consent and History and Physical NPO Status Verified Time NPO: 00:00 Additional verifications Anesthesia Reactions: Yes (low BP) Hx Blood Transfusions: No Blood Transfusion Reaction: No Airway Assessment Mallampati Score:: Class II C-Spine Mobility Assessed: Yes TMJ Mobility Assessed: Yes Dentition: Dentures-good fit (removed) Neurological Assessment Level of Consciousness: Awake and Alert Anesthesia Plan Anesthesia Risk discussed: Yes Anesthesia Plan: Verified ASA Class: III Anesthesia Type: MAC
[2023-06-30 08:45] VITALS: O2SAT 99
[2023-06-30 09:20] VITALS: BP 83/53; PULSE 76; RESP 14; TEMP 36.2; O2SAT 92
[2023-06-30 09:30] VITALS: BP 111/57; PULSE 72; RESP 16; O2SAT 97
[2023-06-30 09:40] VITALS: BP 108/60; PULSE 84; RESP 16; O2SAT 95
[2023-06-30 09:50] VITALS: BP 113/69; PULSE 77; RESP 16; O2SAT 96
== END 2023-06-30 10:00 | disposition home or self-care (01) ==
PROVIDERS: PCP Family Medicine; Visit Provider Surgery
PROC: 0DJD8ZZ Inspection of Lower Intestinal Tract, Via Natural or Artificial Opening Endoscopic (ICD-10-PCS; CPT 45385; principal; 2023-06-30 08:30)
DX: R19.5 Other fecal abnormalities (principal); K56.2 Volvulus; K57.30 Diverticulosis of large intestine without perforation or abscess without bleeding; K63.5 Polyp of colon; E11.9 Type 2 diabetes mellitus without complications
CPT/HCPCS: 45385; 82962; 88305

== ENCOUNTER → 2023-07-17 09:46 | Outpatient (CLI) | payer MEDICARE, OTHER, SELFPAY ==
--- NOTE | 2023-07-17 09:52 | FL_ITS ---
FINAL REPORT CLINICAL HISTORY: positive cologuard Fluoro Time: 3:47min 227.93mGy FINDINGS: BARIUM ENEMA HISTORY: Incomplete colonoscopy. PROCEDURE: Single-contrast barium was introduced by gravity drip. 29 fluoroscopic spot and overhead films were obtained. Fluoro time: 3 minutes 47 seconds. Radiation exposure in Reference air Kerma: 227.93 mGy. FINDINGS: Boning Room Worker film is unremarkable. Retained stool limits mucosal detail. No constricting or obstructing lesions are identified to the level of the cecum. There is diverticulosis of the distal colon. IMPRESSION: No constricting or obstructing lesions to the level of the cecum. Diverticulosis of the distal colon. Films reviewed , interpreted and dictated by Dr. Rebolledo. Transcribed by Chase Chin PA-C. Reviewed, Interpreted and Dictated by Giovanny Rebolledo III, MD Transcribed by MUNA Redman Authenticated and [facility]
== END ==
PROVIDERS: PCP Family Medicine; Visit Provider Surgery
DX: R19.5 Other fecal abnormalities (principal)
CPT/HCPCS: 74270

== ENCOUNTER 2023-09-25 17:19 | Emergency (ER) | payer MEDICARE, OTHER, SELFPAY ==
[2023-09-25 17:48] VITALS: BP 155/77; PULSE 98; RESP 16; TEMP 36.6; O2SAT 97; BMI 29.2
[2023-09-25 18:00] VITALS: BP 154/114; PULSE 103; O2SAT 97
--- NOTE | 2023-09-25 18:01 | XR_ITS ---
PROCEDURE INFORMATION: Exam: XR Left Femur Exam date and time: 09/25/2023 6:15 PM Age: 73 years old Clinical indication: Injury or trauma; Fall; Blunt trauma; Thigh or upper leg; Left; Additional info: Fall, L femur and knee pain TECHNIQUE: Imaging protocol: Radiologic exam of the left femur. Views: 2 views. COMPARISON: CR XR HIP LT 2-3V W/PELVIS 09/25/2023 6:15 PM FINDINGS: Bones/joints: Incomplete visualization of degenerative arthritic type changes at the knee joint. Incomplete visualization of patellar fracture. Extensive regions of prepatellar and suprapatellar bursitis. Moderate-large suprapatellar effusion. Soft tissues: Unremarkable. Vasculature: Atherosclerotic vascular disease. IMPRESSION: 1. Incomplete visualization of patellar fracture. 2. Moderate-large suprapatellar effusion.
--- NOTE | 2023-09-25 18:01 | XR_ITS ---
PROCEDURE INFORMATION: Exam: XR Left Hip Exam date and time: 09/25/2023 6:15 PM Age: 73 years old Clinical indication: Injury or trauma; Fall; Blunt trauma (contusions or hematomas); Left; Hip; Additional info: Fall, L femur and knee pain TECHNIQUE: Imaging protocol: Radiologic exam of the left hip. Views: 2 or 3 views hip with pelvis when performed. COMPARISON: CR XR FEMUR LT 2V 09/25/2023 6:15 PM FINDINGS: Bones/joints: Unremarkable. No acute fracture. Soft tissues: Unremarkable. IMPRESSION: No acute findings.
--- NOTE | 2023-09-25 18:01 | CT_ITS ---
PROCEDURE INFORMATION: Exam: CT Cervical Spine Without Contrast Exam date and time: 09/25/2023 6:16 PM Age: 73 years old Clinical indication: Injury or trauma; Fall; Blunt trauma; Additional info: Fall, struck head TECHNIQUE: Imaging protocol: Computed tomography of the cervical spine without contrast. Radiation optimization: All CT scans at this facility use at least one of these dose optimization techniques: automated exposure control; mA and/or kV adjustment per patient size (includes targeted exams where dose is matched to clinical indication); or iterative reconstruction. COMPARISON: CT ANGIO NECK 01/02/2021 2:19 AM FINDINGS: Bones/joints: Cervical vertebrae normal in height. Reversal of normal cervical lordosis centered at C4-C5. Trace anterolisthesis C3 on C4, C4 on C5, C7 on T1 and T1 on T2. Maintained craniocervical junction. No acute fracture. Multilevel degenerative changes.Varying degrees of neural foraminal narrowing, most significant at C5-C6 and C6-C7. No severe spinal canal stenosis. Lungs: Lung apices are normal. Vasculature: Bilateral carotid artery stents. Soft tissues: Unremarkable. IMPRESSION: No acute osseous findings.
--- NOTE | 2023-09-25 18:01 | XR_ITS ---
PROCEDURE INFORMATION: Exam: XR Left Knee Exam date and time: 09/25/2023 6:15 PM Age: 73 years old Clinical indication: Injury or trauma; Fall; Blunt trauma; Knee; Left; Additional info: Fall, L femur and knee pain TECHNIQUE: Imaging protocol: Radiologic exam of the left knee. Views: 3 views. COMPARISON: CR XR FEMUR LT 2V 09/25/2023 6:15 PM FINDINGS: Bones/joints: Transverse fracture through the mid patella associated with 6 mm of distraction. Moderate joint effusion. Tricompartmental osteoarthritis. Soft tissues: Anterior knee soft tissue swelling. Vasculature: Vascular calcifications. IMPRESSION: Transverse fracture through the mid patella associated with 6 mm of distraction.
--- NOTE | 2023-09-25 18:01 | CT_ITS ---
PROCEDURE INFORMATION: Exam: CT Head Without Contrast Exam date and time: 09/25/2023 6:13 PM Age: 73 years old Clinical indication: Injury or trauma; Fall; Blunt trauma (contusions or hematomas); Additional info: Fall head trauma TECHNIQUE: Imaging protocol: Computed tomography of the head without contrast. Radiation optimization: All CT scans at this facility use at least one of these dose optimization techniques: automated exposure control; mA and/or kV adjustment per patient size (includes targeted exams where dose is matched to clinical indication); or iterative reconstruction. COMPARISON: CT HEAD/BRAIN WO CON 03/25/2023 8:50 PM FINDINGS: Brain: No acute intracranial hemorrhage, midline shift or mass effect. Mild diffuse brain parenchymal volume loss. Mild hypodensities within the cerebral white matter most consistent with chronic small-vessel ischemic changes. Cerebral ventricles: No ventriculomegaly. Paranasal sinuses: Chronic opacification of several left posterior ethmoid air cells. Mild bilateral maxillary sinus mucosal thickening. Mastoid air cells: Visualized mastoid air cells are well aerated. Bones/joints: Bilateral temporomandibular joint degenerative changes. No acute fracture. Soft tissues: Moderate right and mild left frontal scalp contusions. IMPRESSION: Moderate right and mild left frontal scalp contusions. No calvarial fracture or acute intracranial findings.
--- NOTE | 2023-09-25 18:01 | XR_ITS ---
PROCEDURE INFORMATION: Exam: XR Left Tibia and Fibula Exam date and time: 09/25/2023 6:15 PM Age: 73 years old Clinical indication: Injury or trauma; Fall; Blunt trauma; Lower leg; Left; Additional info: Fall, L femur and knee pain TECHNIQUE: Imaging protocol: Radiologic exam of the left tibia and fibula. Views: 2 views. COMPARISON: CR XR KNEE LT 3V 09/25/2023 6:15 PM FINDINGS: Bones/joints: Incomplete visualization of patellar fracture. No evidence of acute osseous injury involving the left tibia or fibula. Soft tissues: Normal. IMPRESSION: 1. Incomplete visualization of patellar fracture. 2. No evidence of acute osseous injury involving the left tibia or fibula.
[2023-09-25] MEDS: IBUPROFEN 600 MG TABLET PO (18:07)
[2023-09-25] MEDS: ACETAMINOPHEN 500MG TAB 1000 MG PO (18:07)
--- NOTE | 2023-09-25 18:08 | PC.NURSE ---
pt going to ct
--- NOTE | 2023-09-25 18:34 | PC.NURSE ---
pt arrived back to room from ct
--- NOTE | 2023-09-25 18:38 | HMH.EDGENADL ---
Discharge Plan Disposition Patient Disposition: Home, Self-Care Chief Complaint: Fall Prescriptions Prescriptions: No Action atorvastatin 80 mg tablet 80 mg PO DAILY lisinopril 10 mg tablet 10 mg PO DAILY (DME) pen needle, diabetic [Droplet Pen Needle] 31 gauge x 5/16 needle See Rx Instructions .ROUTE .MEDSUPPLY Qty: 1200 Rx Instructions: As directed (DME) Accu-Chek Amanda Plus test strp Strip See Rx Instructions .ROUTE .MEDSUPPLY Qty: 10 Rx Instructions: As directed clopidogrel 75 mg tablet 75 mg PO DAILY (DME) lancets [Accu-Chek Softclix Lancets] Misc See Rx Instructions .ROUTE .MEDSUPPLY Qty: 100 Rx Instructions: As directed Clenpiq 10 mg-3.5 gram- 12 gram/160 mL solution 160 ml PO DAILY Qty: 350 0RF Rx Instructions: take first dose at 5-9PM evening before colonoscopy; 2nd dose the next day approximately 5 hrs before colonoscopy metformin 1,000 MG tablet 1,000 mg PO BID ergocalciferol (vitamin D2) 10 mcg (400 unit) Tablet 10 mcg PO DAILY ferrous sulfate 325 mg (65 mg iron) Tablet 325 mg PO DAILY insulin aspart U-100 [Novolog FlexPen U-100 Insulin] 100 unit/mL (3 mL) Insulin Pen 20 unit SQ BID Levemir FlexPen 100 unit/mL (3 mL) Insulin Pen 40 unit SQ HS vitamin R26-dcpli acid 500-400 mcg Tablet 1 tab PO DAILY Rx Instructions: administer with a meal aspirin 81 mg Capsule 81 mg PO DAILY Referrals Follow up/Referrals: Cosme Garcia MD [Primary Care Provider] - See instructions Activity Restrictions/Add. Instructions Additional Instructions/Restrictions: Left patella fracture will be followed up with Dr. Finch next week, call his office and let them know you were seen in the emergency department and he recommended follow-up on Thursday or the or . Ice periodically throughout the day to decrease swelling. Try to work your knee straight and knee immobilizer and keep immobilizer on at all times. Call your family doctor to establish care for this visit to the emergency department and schedule follow-up within 48 hours to ensure improvement. If you have any worsening of your condition or any other concerning signs or symptoms, return to the emergency department or your primary care doctor for further evaluation. Clinical Impressions Clinical Impression: Closed fracture of left patella, CHI (closed head injury) Discharge ED Provider: Antony Valera General Adult HPI General Chief complaint: Fall Stated complaint: AO 09/25/23 1620 Knot right forhead,left knee inju Time Seen by Provider: 09/25/23 17:37 Mode of Arrival: Wheelchair Source of Information: Patient Limitations: No Limitations Description of Symptoms (Recalled from ER Triage Doc. by RN): pt states her sock got caught on a suzanne nail and she fell. pt states she hit the R side of her forehead on a baseboard. pt denies LOC, A&O x4 with a GCS of 15. pt also c/o L knee pain, edema and extremely limited ROM. pt is on plavix. History of Present Illness HPI narrative: 73-year-old female history of hypertension, hyperlipidemia, diabetes, CAD currently on aspirin and Plavix presenting with fall. Patient fell at home and hit her head on the floor. No loss of consciousness. She also twisted her knee when she fell and is having significant knee pain with inability to extend his knee secondary to cramping and pain. No neurologic deficits. Has been unable to bear weight on the knee as well. No neck or back pain, vision changes, or any other concerns Related Data Home Medications Medication Instructions Recorded Confirmed metformin 1,000 mg tablet 1,000 mg PO BID Diabetes 01/02/21 07/22/23 atorvastatin 80 mg tablet 80 mg PO DAILY Cholesterol 02/03/22 07/22/23 blood sugar diagnostic (Accu-Chek #10 ea 02/03/22 07/22/23 Amanda Plus test strips) clopidogrel 75 mg tablet 75 mg PO DAILY Blood Thinner 02/03/22 07/22/23 lancets (Accu-Chek Softclix #100 ea 02/03/22 07/22/23 Lancets) lisinopril 10 mg tablet 10 mg PO DAILY bp 02/03/22 07/22/23 pen needle, diabetic 31 gauge x #1,200 ea 02/03/22 07/22/2312/23 (Droplet Pen Needle) aspirin 81 mg capsule 81 mg PO DAILY Blood Thinner 06/29/23 07/22/23 ergocalciferol (vitamin D2) 10 mcg 10 mcg PO DAILY Supplement 06/29/23 07/22/23 (400 unit) tablet ferrous sulfate 325 mg (65 mg 325 mg PO DAILY iron 06/29/23 07/22/23 iron) tablet insulin aspart U-100 100 unit/mL 20 unit SQ BID Diabetes 06/29/23 07/22/23 (3 mL) subcutaneous pen (Novolog FlexPen U-100 Insulin aspart) insulin detemir U-100 100 unit/mL 40 unit SQ HS Diabetes 06/29/23 07/22/23 (3 mL) subcutaneous pen (Levemir FlexPen) vitamin B12 500 mcg-folic acid 400 1 tab PO DAILY Supplement 06/29/23 07/22/23 mcg tablet Previous Rx's Medication Instructions Recorded sod picosulf 10 mg-magnes 3.5 160 ml PO DAILY 2 doses #350 mL 06/08/23 gram-citric 12 gram/160 mL oral solution (Clenpiq) Allergies Allergy/AdvReac Type Severity Reaction Status Date / Time No Known Allergies Allergy Verified 09/25/23 17:[address] [facility] Disclaimer: The information contained in this section may have been updated after the patient was seen, as this information can be updated by other users. Medical History (Updated 09/25/23 @ 21:32 by Antony aVlera MD) Diabetes mellitus Hyperlipidemia Hypertensive cardiovascular disease Vocal cord paralysis Surgical History (Updated 07/22/23 @ 10:33 by Tiara Grossman, LENCHO) History of carotid endarterectomy History of colonoscopy Family History Other Diabetes Social History Smoking Status: Never smoker alcohol intake: never substance use type: denies use current occupational status: retired Travel in the last 8 weeks: None household members: family housing: house current occupational exposures/hazards: No caffeine: Yes ROS Obtained: Yes All systems reviewed & no additional complaints except as documented Physical Exam General General appearance: alert and in no apparent distress Head Head exam: normocephalic and other (Hematoma overlying right side of forehead. No signs of basilar skull fracture) Eye Eye exam: Present normal appearance, PERRL and EOMI ENT ENT exam: Present mucous membranes moist Neck Neck exam: Present normal inspection, full ROM and trachea midline; Absent tenderness Respiratory Respiratory exam: Absent respiratory distress, wheezes, stridor, accessory muscle use or prolonged expiratory phase Cardiovascular Cardiovascular exam: Present normal rhythm Abdominal Exam Abdominal exam: Present soft; Absent distention, tenderness, guarding, rebound or rigidity Extremities Exam Extremities exam: Present other (Tenderness, swelling, decreased range of motion left knee. Primarily tender anterolateral aspect of distal femur just above knee joint. Active and passive range of motion limited secondary to pain and swelling of the knee. No obvious deformity. Neurovascular intact); Absent edema Neurological Exam Neurological exam: Present alert, oriented X3, CN II-XII intact and normal gait; Absent motor sensory deficit Skin Skin exam: Present warm and dry; Absent diaphoresis or erythema Medical Decision Making Medical Records Medical records reviewed: Yes I reviewed the patient's medical records. Dae Inquiry Pt receiving controlled substance: No Dae was queried for this patient: No Vital Signs: 09/25/23 17:48 09/25/23 18:00 09/25/23 19:00 Temperature 98 F Temperature Source Oral Pulse Rate 103 H 89 Pulse Rate [Left] 98 H Respiratory Rate 16 Blood Pressure 154/114 H 145/72 H Blood Pressure [Right Arm] 155/77 H Blood Pressure Mean [Right Arm] 103 Blood Pressure Source [Right Arm] Automatic Cuff Blood Pressure Position [Right Arm] Sitting 02 Sat by Pulse Oximetry 97 97 98 Oxygen Delivery Method Room Air 09/25/23 19:31 09/25/23 20:00 Temperature Temperature Source Pulse Rate 95 H 89 Pulse Rate [Left] Respiratory Rate Blood Pressure 165/68 H 154/81 H Blood Pressure [Right Arm] Blood Pressure Mean [Right Arm] Blood Pressure Source [Right Arm] Blood Pressure Position [Right Arm] 02 Sat by Pulse Oximetry 97 95 Oxygen Delivery Method Orders (Tests/Meds): ED MEDICATIONS Discontinued Medications Generic Name Dose Route Start Last Admin Trade Name Gregoryq PRN Reason Stop Dose Admin Acetaminophen 1,000 mg 09/25/23 18:01 09/25/23 18:07 Acetaminophen 500mg Tab PO 09/25/23 18:02 1,000 mg ONCE ONE Administration Ibuprofen 600 mg 09/25/23 18:01 09/25/23 18:07 Ibuprofen 600 Mg Tablet PO 09/25/23 18:02 600 mg ONCE ONE Administration Lidocaine HCl 10 ml 09/25/23 20:04 09/25/23 20:08 Lidocaine 1% 10ml Mdv SQ 09/25/23 20:05 10 ml ONCE ONE Administration Methocarbamol 1,500 mg 09/25/23 19:09 09/25/23 19:14 Methocarbamol 500mg Tablet PO 09/25/23 19:10 1,500 mg ONCE ONE Administration Tetanus/Reduced Diphtheria/Acell Pertussis 0.5 ml 09/25/23 19:45 09/25/23 19:56 Tet/Diphth/Pert-Adult 0.5ml Syringe IM 09/25/23 19:46 0.5 ml .ONCE ONE Administration ORDERS Category Date Time Status CT cervical spine wo con Stat Cat Scan 09/25/23 18:[address] head/brain wo con Stat Cat Scan 09/25/23 18:[address] knee LT wo con Stat Cat Scan 09/25/23 20:10 Taken Femur XR left 2 views [XR femur LT 2V] Stat Exams 09/25/23 18:01 Completed Fibula/tibia XR left 2 views [XR tibia fibula LT 2V] Exams 09/25/23 18:01 Completed Stat Hip XR left minimum 2 views [XR hip LT 2-3V w/pelvis] Exams 09/25/23 18:01 Completed Stat Knee XR left 3 views [XR knee LT 3V] Stat Exams 09/25/23 18:01 Completed Knee XR right 3 views [XR knee RT 3V] Stat Exams 09/25/23 19:45 Completed Medical Decision Narrative: 73-year-old female history of hypertension, hyperlipidemia, diabetes, CAD currently on aspirin and Plavix presenting with fall. Patient fell at home and hit her head on the floor. No loss of consciousness. She also twisted her knee when she fell and is having significant knee pain with inability to extend his knee secondary to cramping and pain. No neurologic deficits. Has been unable to bear weight on the knee as well. No neck or back pain, vision changes, or any other concerns. History was obtained via conversation with patient and family. On arrival, patient hemodynamically stable, alert, oriented x4, appropriate, GCS 15, moving all extremities spontaneously, pupils equal and reactive to light. Full physical exam performed and significant for hematoma on the right side of forehead. No signs of basilar skull fracture. Neurovascular intact. No neck or back tenderness. Patient does have tenderness and decreased range of motion of left knee secondary to pain and swelling. Active and passive decreased. Neurovascular intact Differential includes intracranial bleed, cervical spine injury, fracture, sprain, strain, dislocation, among others. Patient was given Tylenol Motrin p.o. for symptomatic management and correction of underlying abnormalities. Workup independently interpreted and significant for no acute bony abnormality of the hip or femur, but patient does have transverse patellar fracture with associated hematoma. Right knee within normal limits. CT left knee without acute tibial plateau fracture. See radiology read for full review of final results. On reevaluation, patient unable to fully straighten the knee, this is 1 CT knee was ordered. Orthopedics was consulted and case was discussed at length, recommended knee immobilizer and possible aspiration, however on CT evaluation and further physical exam, I do not feel the aspiration would add much benefit in terms of range of motion. Given patient presentation, workup, history, this most likely represents patellar fracture in the setting of fall as well as closed head injury without intracranial bleed. Because patient at baseline without signs or symptoms of clinical decompensation, deemed appropriate for discharge. Results were relayed to patient who voiced understanding and were agreeable to outpatient management and follow up. At the time of discharge the patient was hemodynamically stable, tolerating PO, and mobilizing appropriately. Critical Care Critical Care Time Critical Care Time: No
[2023-09-25 19:00] VITALS: BP 145/72; PULSE 89; O2SAT 98
[2023-09-25] MEDS: METHOCARBAMOL 500MG TABLET 1500 MG PO (19:14)
[2023-09-25 19:31] VITALS: BP 165/68; PULSE 95; O2SAT 97
--- NOTE | 2023-09-25 19:45 | XR_ITS ---
PROCEDURE INFORMATION: Exam: XR Right Knee Exam date and time: 09/25/2023 7:48 PM Age: 73 years old Clinical indication: Injury or trauma; Fall; Blunt trauma; Knee; Right; Additional info: Injury medially TECHNIQUE: Imaging protocol: Radiologic exam of the right knee. Views: 3 views. COMPARISON: No relevant prior studies available. FINDINGS: Bones/joints: No acute fracture or malalignment. Tricompartment osteoarthritis. Minimal medial and lateral compartment chondrocalcinosis. No joint effusion. Soft tissues: 1.2 cm thin linear metallic foreign body within the distal anterior thigh soft tissues. Vasculature: Vascular calcifications. IMPRESSION: 1. No acute osseous findings. 2. 1.2 cm thin linear metallic foreign body within the distal anterior thigh soft tissues.
[2023-09-25] MEDS: TET/DIPHTH/PERT-ADULT 0.5ML SYRINGE 0.5 ML IM (19:56)
[2023-09-25 20:00] VITALS: BP 154/81; PULSE 89; O2SAT 95
[2023-09-25] MEDS: LIDOCAINE 1% 10ML MDV 10 ML SQ (20:08)
--- NOTE | 2023-09-25 20:10 | CT_ITS ---
PROCEDURE INFORMATION: Exam: CT Left Lower Extremity Without Contrast, Knee Exam date and time: 09/25/2023 8:58 PM Age: 73 years old Clinical indication: Injury or trauma; Fall; Fracture, traumatic; Closed fracture; Patella or knee; Left; Additional info: Fall, patellar fracutre, can't straighten knee TECHNIQUE: Imaging protocol: CT of the left lower extremity without contrast was performed. Exam focused on the knee. Radiation optimization: All CT scans at this facility use at least one of these dose optimization techniques: automated exposure control; mA and/or kV adjustment per patient size (includes targeted exams where dose is matched to clinical indication); or iterative reconstruction. COMPARISON: CR XR KNEE LT 3V 09/25/2023 6:15 PM FINDINGS: Bones/joints: Moderately diastatic mildly comminuted fracture through the midportion of the patella. No other acute fracture. Moderate tricompartmental osteoarthritis of the knee. Moderate amount of relative high density joint fluid suggesting hemarthrosis. 4.5 cm Mcclellan's cyst in the popliteal fossa with several small included osseous densities compatible with synovial osteochondromatosis. Soft tissues: Significant atrophy of the visualized portions of the hamstring muscles noted. Vasculature: Moderate atherosclerotic calcification throughout the popliteal artery. IMPRESSION: Moderately diastatic and comminuted patellar fracture with moderate associated hemarthrosis. Other chronic findings as noted.
[2023-09-25 21:51] VITALS: BP 152/73; PULSE 84; RESP 16; TEMP 36.6; O2SAT 98
--- NOTE | 2023-10-01 12:35 | P.HP_ITS ---
History of Present Illness *Admission Date: 10/01/23 *Reason for visit:: vomiting, dehydration *History of present illness: Ms. Fernandez is a 73-year-old female who had a fall at home on 09/25/2023. She hit her head and fractured her left knee. An appointment was scheduled for her with Dr. Finch today. Her daughter states for the past 3 to 4 days she has had nausea and vomiting along with severe pain in the left knee. Dr. Garcia did send some tramadol for pain. She has been unable to keep down any solids or liquids and is dehydrated. Her daughter states she was told by the ER physician that surgery would be necessary, but she does not feel her mother can have surgery as sick as she is at this time. She will be admitted for further evaluation and treatment. [facility] Disclaimer: The information contained in this section may have been updated after the patient was seen, as this information can be updated by other users. Medical History (Updated 10/02/23 @ 08:51 by Cosme Garcia MD) Cerebrovascular accident Diabetes mellitus History of TIA (transient ischemic attack) Hyperlipidemia Hypertensive cardiovascular disease Vocal cord paralysis Surgical History History of carotid endarterectomy History of colonoscopy Family History Diabetes Coronary artery disease Hyperlipidemia Heart attack Hypertension Stroke Social History (Updated 10/01/23 @ 13:17 by Yazmin Medrano RN) Smoking Status: Never smoker alcohol intake: never substance use type: denies use current occupational status: retired Travel in the last 8 weeks: None household members: family housing: house current occupational exposures/hazards: No caffeine: Yes Review of Systems Constitutional Constitutional: Reports chills, Reports fatigue, Denies fever(s), Denies headache(s), Reports poor appetite, Reports lethargy, Reports malaise and Reports weakness Eyes Eyes: Denies blurry vision and Denies diplopia ENT Ears, Nose, Mouth, and Throat: Denies headache(s), Denies nasal congestion, Denies sore throat and Reports vertigo *Cardiovascular Cardiovascular: Denies chest pain, Denies dyspnea and Denies leg edema *Respiratory Respiratory: Denies cough and Denies dyspnea *Gastrointestinal Gastrointestinal: Denies abdominal pain, Denies loose stools, Reports nausea and Reports vomiting *Genitourinary Genitourinary: Denies difficulty voiding and Denies dysuria *Musculoskeletal Musculoskeletal: Reports arthralgias (left knee) and Reports myalgias *Neurologic Neurologic: Denies headache(s), Reports vertigo and Reports weakness Endocrine Endocrine: Reports fatigue Meds Home Medications and Allergies Home Medications Medication Instructions Recorded Confirmed Type metformin 1,000 mg tablet 1,000 mg PO BID Diabetes 01/02/21 10/01/23 History atorvastatin 80 mg tablet 80 mg PO DAILY Cholesterol 02/03/22 10/01/23 History blood sugar diagnostic (Accu-Chek #10 ea 02/03/22 10/01/23 History Amanda Plus test strips) clopidogrel 75 mg tablet 75 mg PO DAILY Blood Thinner 02/03/22 10/01/23 History lancets (Accu-Chek Softclix #100 ea 02/03/22 10/01/23 History Lancets) lisinopril 10 mg tablet 10 mg PO DAILY bp 02/03/22 10/01/23 History pen needle, diabetic 31 gauge x #1,200 ea 02/03/22 10/01/23 History 5/16 (Droplet Pen Needle) aspirin 81 mg capsule 81 mg PO DAILY Blood Thinner 06/29/23 10/01/23 History ergocalciferol (vitamin D2) 10 mcg 10 mcg PO BID Supplement 06/29/23 10/01/23 History (400 unit) tablet insulin aspart U-100 100 unit/mL See Rx Instructions .Route 06/29/23 10/01/23 History (3 mL) subcutaneous pen (Novolog .COMPLEX Diabetes FlexPen U-100 Insulin aspart) vitamin B12 500 mcg-folic acid 400 1 tab PO DAILY Supplement 06/29/23 10/01/23 History mcg tablet insulin glargine 100 unit/mL (3 40 unit SQ HS 10/01/23 10/01/23 History mL) subcutaneous pen (Lantus Solostar U-100 Insulin) ondansetron HCl 4 mg tablet 4 mg PO Q6 10/01/23 10/01/23 History tramadol 50 mg tablet 50 mg PO Q6HP PRN Moderate Pain 10/01/23 10/02/23 History (Scale Score 5-6) New Prescriptions to Start Prescriptions: Allergies Allergy/AdvReac Type Severity Reaction Status Date / Time No Known Allergies Allergy Verified 09/25/23 17:56 Exam Data for Last 24 hours Vital signs and Labs for Last 24 Hours: Temp Pulse Resp BP Pulse Ox O2 Del Method 98 F 84 16 152/73 H 95 Room Air 09/25/23 21:51 09/25/23 21:51 09/25/23 21:51 09/25/23 21:51 09/25/23 20:00 09/25/23 18:00 Constitutional Constitutional: moderate distress (Does not appear to feel well) *Routine HEENT Exam Head: Present normocephalic and atraumatic Eye: Present EOMI and PERRL ENT: Present mucous membranes dry *Routine Neck Exam Neck: Present supple and full ROM *Routine Respiratory Exam Respiratory: Present CTA bilaterally *Routine Cardiovascular Exam Cardiovascular: Present RRR *Routine Abdominal Exam Abdominal: Present soft and normoactive bowel sounds; Absent tenderness *Routine Rectal Exam Rectal:: deferred *Routine Genitalia Exam Genitalia:: deferred *Routine Extremities Exam Extremities: Present edema (LLE); Absent cyanosis or clubbing Comments: left knee is very tender and swollen and in a knee immobilizer *Routine Skin Exam Skin: Present intact; Absent erythema *Routine Neurological Exam Neurological: Present alert and oriented X3 Assessment and Plan *Assessment and plan (1) Vomiting: Status: Acute Category: Medical Code(s): R11.10 - Vomiting, unspecified (2) Dehydration: Status: Acute Category: Medical Code(s): E86.0 - Dehydration (3) CHI (closed head injury): Status: Acute Category: Medical Code(s): S09.90XA - Unspecified injury of head, initial encounter (4) Closed fracture of left patella: Status: Acute Category: Medical Code(s): S82.002A - Unspecified fracture of left patella, initial encounter for closed fracture (5) Hypertensive cardiovascular disease: Status: Chronic Qualifiers: Heart failure presence: unspecified whether heart failure present Qualified Code(s): I11.9 - Hypertensive heart disease without heart failure Category: Medical Code(s): I11.9 - Hypertensive heart disease without heart failure (6) Hyperlipidemia: Status: Acute Category: Medical Code(s): E78.5 - Hyperlipidemia, unspecified (7) Diabetes mellitus: Status: Chronic Qualifiers: Diabetes mellitus complication status: with other specified complication Diabetes mellitus shelter insulin use: unspecified shelter insulin use status Diabetes mellitus type: type 2 Qualified Code(s): E11.69 - Type 2 diabetes mellitus with other specified complication Category: Medical Code(s): E11.9 - Type 2 diabetes mellitus without complications Plan Will admit and start on antiemetics and IVF's. Will get labs, covid/flu testing, and blood cultures. Will inform Dr. Finch that patient has been admitted.
== END 2023-09-25 21:53 | disposition home or self-care (01) ==
PROVIDERS: Emergency Provider Emergency Medicine; PCP Family Medicine
DX: S09.90XA Unspecified injury of head, initial encounter; S82.002A Unspecified fracture of left patella, initial encounter for closed fracture; I11.9 Hypertensive heart disease without heart failure; E78.5 Hyperlipidemia, unspecified; E11.9 Type 2 diabetes mellitus without complications; I25.10 Atherosclerotic heart disease of native coronary artery without angina pectoris; Z79.01 Long term (current) use of anticoagulants; W19.XXXA Unspecified fall, initial encounter
CPT/HCPCS: 70450; 72125; 73502; 73552; 73562; 73590; 73700; 90471; 90715; 99285

== ENCOUNTER 2023-10-01 12:00 | Inpatient (IN) | payer MEDICARE, OTHER, SELFPAY ==
[2023-10-01 12:30] VITALS: BP 130/63; PULSE 92; RESP 18; TEMP 36.8; O2SAT 93; BMI 29.7
[2023-10-01 13:10] LABS: Basophils % 0.2 % (0.1-2.0); Eosinophils # 0.1 K/mm3 (0.0-0.4); Eosinophils % 0.9 % (0.1-12.0); Hematocrit 34.6 % (37.0-47.0); Hemoglobin 11.1 g/dL (12.2-16.2); Lymphocytes # 1.2 K/mm3 (0.7-4.5); Mean Corpuscular Hemoglobin 30.9 pg (27.0-31.2); Mean Corpuscular Volume 96.6 fl (81-99); Mean Platelet Volume 7.9 fl (7.4-10.4); Monocytes # 0.6 K/mm3 (0.1-1.0); Neutrophils # 9.8 K/mm3 (1.8-7.8); Neutrophils % 83.9 % (37.0-80.0); Platelet Count 330 K/mm3 (142-424); Red Blood Count 3.58 M/mm3 (4.20-5.40); Red Cell Distribution Width 13.8 % (11.5-17.5); White Blood Count 11.7 K/mm3 (4.8-10.8)
[2023-10-01] MEDS: SODIUM CHLORIDE 1145 ML IV (13:11)
[2023-10-01 13:20] LABS: Lactic Acid 0.9 mmol/L (0.7-2.1)
[2023-10-01 13:21] LABS: Alanine Aminotransferase 14 U/L (12-78); Albumin Level 3.9 g/dl (3.5-5.0); Alkaline Phosphatase 123 U/L (38-126); Anion Gap 15.2 mEq/L (5-15); Aspartate Amino Transferase 23 U/L (14-36); Bilirubin,Total 0.8 mg/dl (0.2-1.3); Blood Urea Nitrogen 52 mg/dl (7-17); Carbon Dioxide 26 mmol/L (22.0-30.0); Chloride 99 mmol/L (98-107); Creatinine Clearance Estimated 23 mL/min (50-200); Estimated Glomerular Filt Rate 18 ml/min (>60); GFR (African American) 22 ML/MIN (>60); Glucose 226 mg/dl (74-100); Magnesium 2.6 mg/dl (1.6-2.3); Phosphorous 6.9 mg/dl (2.5-4.5); Potassium 5.2 mmoL/L (3.5-5.1); Sodium 135 mmol/L (136-145); Total Protein,Serum 7.9 g/dl (6.3-8.2)
--- NOTE | 2023-10-01 14:02 | HMH.PHAINT1 ---
Pharmacy Intervention Comments: Verified home medication using external fill history and spoke with patient at bedside. Pt confirmed she was just switched to Lantus from Levemir due to insurance no longer covering the Levemir. Taking the same dose of Lantus as she was Levemir, 40 units SQ HS.
[2023-10-01] MEDS: CEFTRIAXONE 1 GM 1 GM in 0.9 % SODIUM CHLORIDE 50 ML IV (14:34)
[2023-10-01 15:19] VITALS: BP 129/69; PULSE 95; RESP 18; TEMP 36.6; O2SAT 100
[2023-10-01] MEDS: humaLOG 100 UNITS/ML 3ML VIAL (SSI) SQ ×2 (16:30→21:55)
[2023-10-01] MEDS: TRAMADOL 50MG TABLET 50 MG PO ×2 (16:33→22:03)
--- NOTE | 2023-10-01 18:21 | PC.NURSE ---
new admit for dehydration and knee fx. aox4, tolerating room air. received sepsis bolus this shift. medicated for pain with prn tramadol once with good effectiveness. patient has slept for most of the day.
[2023-10-01 19:07] LABS: POC Glucose,Bedside 210 (70-110)
[2023-10-01 20:00] VITALS: BP 137/66; PULSE 97; RESP 16; TEMP 36.6; O2SAT 97
[2023-10-01] MEDS: 0.9 % SODIUM CHLORIDE 1000ML 1,000 ML 150 ML IV ×2 (20:55→23:45)
[2023-10-01 20:59] LABS: POC Glucose,Bedside 216 (70-110)
[2023-10-01] MEDS: ONDANSETRON 4MG/2ML VIAL 4 MG IV (22:08)
[2023-10-02] MEDS: TRAMADOL 50MG TABLET 50 MG PO ×2 (02:54→10:28)
[2023-10-02] MEDS: ACETAMINOPHEN 325MG TAB 650 MG PO ×2 (02:54→17:27)
--- NOTE | 2023-10-02 03:54 | PC.NURSE ---
Patient alert and orient X4. Very pleasant and cooperative with staff. Pt c/o constant throbbing aching pain to left knee d/t a fall prior to admission. PRN pain medication given as ordered with some effectiveness noted. Cold compress applied with effectiveness. Patient was bladder scanned d/t discomfort to abdomen. Bladder scan showed 500cc. Patient wanted to try to get on the bedside commode. Staff assisted patient from bed to bedside commode. Patient has left knee brace properly in place. Patient place no weight to LLE. Patient was able to void 450cc of clear yellow urine with no foul odor.
[2023-10-02 04:00] VITALS: BP 109/51; PULSE 82; RESP 16; TEMP 36.9; O2SAT 93; BMI 31.9
[2023-10-02] MEDS: 0.9 % SODIUM CHLORIDE 1000ML 1,000 ML 150 ML IV (06:10)
[2023-10-02] MEDS: ONDANSETRON 4MG/2ML VIAL 4 MG IV ×2 (06:11→17:27)
[2023-10-02 06:51] LABS: Basophils % 0.3 % (0.1-2.0); Eosinophils # 0.3 K/mm3 (0.0-0.4); Eosinophils % 4.2 % (0.1-12.0); Lymphocytes # 1.5 K/mm3 (0.7-4.5); Lymphocytes % 19.1 % (10-50); Mean Corpuscular HGB Conc 34.4 g/dL (31.8-35.4); Mean Corpuscular Hemoglobin 33.5 pg (27.0-31.2); Mean Corpuscular Volume 97.4 fl (81-99); Mean Platelet Volume 7.7 fl (7.4-10.4); Monocytes # 0.5 K/mm3 (0.1-1.0); Monocytes % 6.6 % (1.7-9.3); Neutrophils # 5.5 K/mm3 (1.8-7.8); Neutrophils % 69.7 % (37.0-80.0); Platelet Count 288 K/mm3 (142-424); Red Blood Count 2.87 M/mm3 (4.20-5.40); Red Cell Distribution Width 13.9 % (11.5-17.5); White Blood Count 7.9 K/mm3 (4.8-10.8)
[2023-10-02 06:57] LABS: POC Glucose,Bedside 133 (70-110)
[2023-10-02 06:59] LABS: Hemoglobin 10.1 g/dL (12.2-16.2)
[2023-10-02 07:05] LABS: Chloride 109 mmol/L (98-107); Potassium 4.1 mmoL/L (3.5-5.1); Sodium 136 mmol/L (136-145)
[2023-10-02 07:08] LABS: Anion Gap 5.1 mEq/L (5-15); Blood Urea Nitrogen 40 mg/dl (7-17); Calcium 7.9 mg/dl (8.4-10.2); Carbon Dioxide 26 mmol/L (22.0-30.0); Creatinine Clearance Estimated 45 mL/min (50-200); Estimated Glomerular Filt Rate 37 ml/min (>60); GFR (African American) 44 ML/MIN (>60); Glucose 134 mg/dl (74-100)
[2023-10-02 08:00] VITALS: BP 144/70; PULSE 82; RESP 18; TEMP 36.6; O2SAT 97
[2023-10-02] MEDS: CEFTRIAXONE 1 GM 1 GM in 0.9 % SODIUM CHLORIDE 50 ML IV (08:21)
--- NOTE | 2023-10-02 08:34 | P.PN_ITS ---
Subjective *Date: 10/02/23 *Time: 08:51 Interval history: Patient is feeling a little bit better this morning. She is still having pain in both knees. She has had less vomiting and nausea. She is still unable to eat. Medical Exam Vital signs and Labs for Last 24 Hours: Vital Signs Temp Pulse Resp BP Pulse Ox O2 Del Method O2 Flow Rate 10/02/23 08:00 98 F 82 18 144/70 H 97 Room Air 10/02/23 07:00 Room Air 10/02/23 05:00 Room Air 10/02/23 04:00 98.5 F 82 16 109/51 L 93 L Nasal Cannula 10/01/23 20:00 Room Air 10/02/23 03:00 Room Air 10/02/23 01:00 Room Air 10/01/23 23:00 Room Air 10/01/23 21:00 Room Air 10/01/23 20:00 97.9 F 97 H 16 137/66 97 Nasal Cannula 2 10/01/23 18:12 Room Air 10/01/23 17:00 Room Air 10/01/23 15:19 97.8 F 95 H 18 129/69 100 Nasal Cannula 2 10/01/23 15:00 Room Air 10/01/23 13:00 Room Air 10/01/23 12:30 98.2 F 92 H 18 130/63 93 L Nasal Cannula 2 Intake and Output 10/01/23 10/02/23 10/02/23 19:59 03:59 11:59 Intake Total 2735 / 3725 990 / 3725 Output Total 0 / 700 700 / 700 Balance 2735 / 3025 990 / 3025 -700 / 3025 Intake: Intake, Oral Amount 340 / 580 240 / 580 Infusion Intake 2395 / 3145 750 / 3145 0.9 % Sodium Chloride 1000ML 2, 2395 / 3145 750 / 3145 290 ml @ 1145 mls/hr IV .Q2H ONE Rx#:[id number] Output: Output, Urine Amount 0 / 700 700 / 700 Other: Number of Unmeasured Voids 1 0 Weight 168 lb 3 oz 180 lb 3.2 oz Patient Weight 10/02/23 11:59 Weight 180 lb 3.2 oz Laboratory Results - last 24 hr 10/01/23 12:51: WBC 11.7 H, RBC 3.58 L, Hgb 11.1 L, Hct 34.6 L, MCV 96.6, MCH 30.9, MCHC 32.0, RDW 13.8, Plt Count 330, MPV 7.9, Neut % (Auto) 83.9 H, Lymph % (Auto) 10.0, [place] % (Auto) 5.0, Eos % (Auto) 0.9, Baso % (Auto) 0.2, Neut # (Auto) 9.8 H, Lymph # (Auto) 1.2, [place] # (Auto) 0.6, Eos # (Auto) 0.1, Baso # (Auto) 0.0, Sodium 135 L, Potassium 5.2 H, Chloride 99, Carbon Dioxide 26, Anion Gap 15.2 H, BUN 52 H, Creatinine 2.60 H, Estimated Creat Clear 23, Estimated GFR 18 L*, Est GFR ( Amer) 22 L, Glucose 226 H, Lactate 0.9, Calcium 9.0, Phosphorus 6.9 H, Magnesium 2.6 H, Total Bilirubin 0.8, AST 23, ALT 14, Alkaline Phosphatase 123, Total Protein 7.9, Albumin 3.9, Globulin 4.0 H, Albumin/Globulin Ratio 1.0 L 10/01/23 16:30: POC Glucose 210 H 10/01/23 20:50: POC Glucose 216 H 10/02/23 05:40: WBC 7.9 D, RBC 2.87 L, Hgb 10.1 L, Hct 28.0 L, MCV 97.4, MCH 33.5 H, MCHC 34.4, RDW 13.9, Plt Count 288, MPV 7.7, Neut % (Auto) 69.7, Lymph % (Auto) 19.1, [place] % (Auto) 6.6, Eos % (Auto) 4.2, Baso % (Auto) 0.3, Neut # (Auto) 5.5, Lymph # (Auto) 1.5, [place] # (Auto) 0.5, Eos # (Auto) 0.3, Baso # (Auto) 0.0, Sodium 136, Potassium 4.1 D, Chloride 109 H, Carbon Dioxide 26, Anion Gap 5.1, BUN 40 H, Creatinine 1.40 H D, Estimated Creat Clear 45, Estimated GFR 37 L, Est GFR ( Amer) 44 L D, Glucose 134 H D, Calcium 7.9 L 10/02/23 06:18: POC Glucose 133 H I & O for Labs for Last 24 Hours: Intake & Output 09/29/23 09/30/23 10/01/23 10/02/23 11:59 11:59 11:59 11:59 Intake Total 3725 / 3725 Output Total 700 / 700 Balance 3025 / 3025 Weight 180 lb 3.2 oz Constitutional: Present no acute distress Head: Absent normocephalic Respiratory: Present CTA bilaterally Cardiac: Present Reg Rate and Rhythm GI: Present soft; Absent distention or tenderness Extremities: Present joint swelling (Left knee is in an immobilizer and there is edema and ecchymosis around the patella, right knee has some edema and ecchymosis along the medial aspect of the knee) Skin: Present ecchymosis (Along the forehead and bilateral knees) Neuro: Present alert, awake and oriented x 3 Assessment and Plan *Assessment and plan (1) Vomiting: Status: Acute Category: Medical Code(s): R11.10 - Vomiting, unspecified (2) Dehydration: Status: Acute Category: Medical Code(s): E86.0 - Dehydration (3) KALIA (acute kidney injury): Status: Acute Category: Medical Code(s): N17.9 - Acute kidney failure, unspecified (4) CHI (closed head injury): Status: Acute Category: Medical Code(s): S09.90XA - Unspecified injury of head, initial encounter (5) Closed fracture of left patella: Status: Acute Category: Medical Code(s): S82.002A - Unspecified fracture of left patella, initial encounter for closed fracture (6) Hypertensive cardiovascular disease: Status: Chronic Qualifiers: Heart failure presence: unspecified whether heart failure present Qualified Code(s): I11.9 - Hypertensive heart disease without heart failure Category: Medical Code(s): I11.9 - Hypertensive heart disease without heart failure (7) Hyperlipidemia: Status: Acute Category: Medical Code(s): E78.5 - Hyperlipidemia, unspecified (8) Diabetes mellitus: Status: Chronic Qualifiers: Diabetes mellitus complication status: with other specified complication Diabetes mellitus long term care social worker insulin use: unspecified long term care social worker insulin use status Diabetes mellitus type: type 2 Qualified Code(s): E11.69 - Type 2 diabetes mellitus with other specified complication Category: Medical Code(s): E11.9 - Type 2 diabetes mellitus without complications Plan Renal function has improved. White blood cell count has normalized. Will check for COVID and flu today. Will continue IV hydration and antiemetics. Dr. Garcia entry - Saw patient, agree with above note.
--- NOTE | 2023-10-02 09:52 | HMH.PTEV ---
Physical Therapy Evaluation Rehab PT IP Evaluation Start: 10/02/23 08:52 Freq: ONCE Status: Active Protocol: Document 10/02/23 09:43 ROSALINO (Rec: 10/02/23 09:52 ROSALINO [id number]) Subjective/History History History Pt is a 73 y/o female who presents s/p fall resulting in R patella fracture and L knee pain. Subjective Subjective PLOF per pt report: Lives alone in a single story home with intermittent visits from great grandchildren. 1STE home . IND with functional mobility without RW. Pt reports 8/10 R knee pain upon attempted stand. New diagnosis of cancer in past 12 No months? Rehab PT IP Eval Objective Appearance Patient Behavior Appropriate,Cooperative Patient Orientation Person,Place,Birthday, Situation Difficulty following instructions none Speech Pattern Clear Ambulation Patient Able to Ambulate No Balance Ability to Arise Able, uses arms to help Sitting Balance Steady, safe Standing Balance Unsteady Transfers Bed Transfer Ability Minimal x 2 (25% assist) Sit to Stand Bed Transfer Ability Maximum x 2 (75% assist) Rehab PT IP prob,goals,plan Problems Date of Evaluation: 10/02/23 PT IP Problems Bed Mobility,Transfers,Gait, Balance,Self care,Safety Rehab Potential Rehab Potential Good Equipment Needs Assistive Devices Rolling / Wheeled Walker Plan PT Intervention Plan Bed Mobility,Transfers,Gait, Balance,Safety,Therapeutic Exercise Other Intervention Plan 1-2 times PT Plan Frequency Daily Duration LOS Discharge Goals Bed Transfer Ability Minimal x 1 (25% assist) Sit to Stand Chair Transfer Ability Moderate x 2 (50% assist) Discharge Plan PT Discharge Plan Pt not safe to return home at this time d/t current level of functional mobility. PT recommending short-term rehabilitation stay upon d/c from [facility]. Pt was unable to achieve full stand despite Max A x 2 d/t pain and weakness. Pt would benefit from skilled PT while at [facility] to prevent further functional decline and maximize safety with mobility . Eval Complexity Eval Charge Codes 76552 - High Complexity PHYSICIAN CERTIFICATION: I certify the specified therapy services for Yesi Fernandez are required, authorized, and reviewed every 30 days.
--- NOTE | 2023-10-02 09:59 | SW/DCPLANNER ---
Addendum entered by [facility] 10/09/23 11:08: Jody turk/ [facility] stated that patient has been approved SNF level of care: [facility] office, nursing staff and patient have been updated. Patient is planned to discharge to [facility] today. Addendum entered by [facility] 10/08/23 14:47: Jose turk/ [facility] stated that precert will be started today for this patient. Addendum entered by [facility] 10/08/23 12:34: Jody/Jose turk/ [facility] will be onsite at 1:30 to evaluate this patient. Addendum entered by [facility] 10/08/23 09:19: Updated patient information has been faxed to [facility] and [facility]. Addendum entered by [facility] 10/07/23 14:51: Per Dr Finch patient will not be able to have surgery for at least [address] Finch has recommended SNF level of care at time of discharge prior to having surgery. Patient/family are agreeable to placement once medically stable for discharge from [facility] prior to future procedure. Patient/family are agreeable to [facility] (first preference) or [facility]. Patient information has been faxed to both facilities at this time. I will continue to follow up w/ patient, family, MD and facilities. Discharge date is unknown at this time. Addendum entered by [facility] 10/06/23 09:03: Family is requesting [facility] at time of discharge. Discharge date is unknown at this time. Updated patient information has been faxed to [facility]k/ [facility]. Addendum entered by [facility] 10/05/23 11:21: I have updated [facility] to please hold on referral/precert regarding patient will now require surgery prior to discharge. Addendum entered by [facility] 10/05/23 07:49: Updated patient information has been faxed to Lainey at [facility] this AM. Addendum entered by [facility] 10/02/23 15:32: Ericka w/ [facility] is willing to accept patient and start precert today or Thursday morning: patient and family are agreeable. I have left message w/ MD office regarding situation and updated Mani Yen and [facility] to disregard referral. Addendum entered by Hanh Ruth 10/02/23 15:25: Jody w/ [facility] stated that she can not admit patient under [employer]/Medicare at time of discharge from [facility]. [facility] and [facility] are currently reviewing patient information. Addendum entered by Hanh Ruth 10/02/23 14:45: Jody w/ [facility] has called back stating that she can not accept patient under Jac/Medicare benefit due to their facility will be responsible for cost of procedure needed next week. Family has called back asking that I speak Jody if they can admit patient under [employer]/Medicare benefit then discharge her the day prior to surgery back home w/ the family: I am currently waiting to hear back from Jody regarding answer. Jody has offered private pay at [facility] until procedure: patient stated that she can not afford this feldman. Patient/daughter are agreeable for information to be faxed to the following facilities if [facility] response is no: [facility], [facility] and [facility] (in this specific order). I will continue to follow up w/ patient, [facility] and other facilities. Original Note: I spoke w/ this patient regarding plans once medically stable for discharge. PT/OT evaluated patient and recommended SNF level of care for patient at time of discharge. I spoke w/ patient and her daughter (POA) this AM regarding placement. Patient does express that she is interested in placement and prefers [facility] in [place]. Patient information will be faxed to Jody w/ [facility] this AM. I also informed patient/daughter to be considering other SNF facilities incase [facility] can not accept: [facility], [facility], [facility] and [facility]. Discharge date is unknown at this time.
--- NOTE | 2023-10-02 10:05 | HMH.OTEV ---
OT Inpatient Evaluation Rehab OT IP Evaluation Start: 10/02/23 08:53 Freq: ONCE Status: Active Protocol: Document 10/02/23 09:56 JOSIAHJOSE (Rec: 10/02/23 10:05 DEVIN [id number]) Rehab OT IP Assessment Subjective History 73 year old female had a recent fall last week resulting in L knee patella fx . Patient was sent home the following day. Patient reported being home for the past week and started having nausea and vomiting along with increase pain in L knee. Admitted back to [facility] for further evaluation. Patient reported that she lives in 1 story home with 1-2 JHONATAN with family. Patient independent with ADLs and fx'l mobility prior to hospitalization. Subjective I can't stand. Instructed Patient on participating in proper hand and foot placement to complete bed mobility from supine->sit @ EOB requiring Min A x2. Patient demonstrated good dynamic sitting balance at EOB . No LOB noted. Instructed Patient on participating in sit->stand transfer requiring Max A x2. Patient completed a partial stand due to the pain. Assisted Patient supine in bed with Max A x2. Needs met at end of session. Objective Patient Orientation Person,Place,Name,Age,Birthday Right Upper Extremity Gross ROM WFL Left Upper Extremity Gross ROM WFL Bed Mobility bed mobility - supine/sit Assist Level Minimal x 2 (25% assist) Transfer Training Sit/Stand Transfer Assist Level Maximum x 2 (75% assist) Chair Transfer Ability Maximum x 2 (75% assist) Chair Transfer Assistive Devices None Rehab OT IP prob,goals,plan Problems Date of Evaluation: 10/02/23 OT IP Problems Bed Mobility,Transfers,Balance ,Self care,Safety Rehab Potential Rehab Potential Good Equipment Needs Assistive Devices Rolling / Wheeled Walker Plan OT intervention Plan Bed Mobility,Transfers,Balance ,Self care,Safety,Therapeutic Exercise OT Plan Frequency Daily Duration LOS Discharge Goals Bed Mobility Ability Assistance x1 Sit to Stand Chair Transfer Ability Maximum x 1 (75% assist) Chair Transfer Ability Maximum x 1 (75% assist) Discharge Plan OT Discharge Plan Recommend placement for patient at this time. Patient is unable to care for herself independently nor has 02/03 care at home. Patient to continue skilled IP OT services while here at [facility]. Eval Complexity Eval Charge Codes 79504 - Low Complexity PHYSICIAN CERTIFICATION: I certify the specified therapy services for Yesi Fernandez are required, authorized, and reviewed every 30 days.
--- NOTE | 2023-10-02 10:06 | HMH.OTEV ---
OT Inpatient Evaluation Rehab OT IP Evaluation Start: 10/02/23 08:53 Freq: ONCE Status: Active Protocol: Document 10/02/23 09:56 JOSIAHJOSE (Rec: 10/02/23 10:05 DEVIN [id number]) Rehab OT IP Assessment Subjective History 73 year old female had a recent fall last week resulting in L knee patella fx . Patient was sent home the following day. Patient reported being home for the past week and started having nausea and vomiting along with increase pain in L knee. Admitted back to [facility] for further evaluation. Patient reported that she lives in 1 story home with 1-2 [place] with family. Patient independent with ADLs and fx'l mobility prior to hospitalization. Subjective I can't stand. Instructed Patient on participating in proper hand and foot placement to complete bed mobility from supine->sit @ EOB requiring Min A x2. Patient demonstrated good dynamic sitting balance at EOB . No LOB noted. Instructed Patient on participating in sit->stand transfer requiring Max A x2. Patient completed a partial stand due to the pain. Assisted Patient supine in bed with Max A x2. Needs met at end of session. Objective Patient Orientation Person,Place,Name,Age,Birthday Right Upper Extremity Gross ROM WFL Left Upper Extremity Gross ROM WFL Bed Mobility bed mobility - supine/sit Assist Level Minimal x 2 (25% assist) Transfer Training Sit/Stand Transfer Assist Level Maximum x 2 (75% assist) Chair Transfer Ability Maximum x 2 (75% assist) Chair Transfer Assistive Devices None Rehab OT IP prob,goals,plan Problems Date of Evaluation: 10/02/23 OT IP Problems Bed Mobility,Transfers,Balance ,Self care,Safety Rehab Potential Rehab Potential Good Equipment Needs Assistive Devices Rolling / Wheeled Walker Plan OT intervention Plan Bed Mobility,Transfers,Balance ,Self care,Safety,Therapeutic Exercise OT Plan Frequency Daily Duration LOS Discharge Goals Bed Mobility Ability Assistance x1 Sit to Stand Chair Transfer Ability Maximum x 1 (75% assist) Chair Transfer Ability Maximum x 1 (75% assist) Discharge Plan OT Discharge Plan Recommend placement for patient at this time. Patient is unable to care for herself independently nor has 02/03 care at home. Patient to continue skilled IP OT services while here at [facility]. Eval Complexity Eval Charge Codes 30635 - Low Complexity PHYSICIAN CERTIFICATION: I certify the specified therapy services for Yesi Fernandez are required, authorized, and reviewed every 30 days.
[2023-10-02] MEDS: humaLOG 100 UNITS/ML 3ML VIAL (SSI) SQ ×2 (11:35→21:21)
[2023-10-02 11:56] LABS: Coronavirus 19, PCR Not Detected (NotDetected); Influenza A, PCR Not Detected (NotDetected); Influenza B, PCR Not Detected (NotDetected)
[2023-10-02 12:23] LABS: POC Glucose,Bedside 160 (70-110)
[2023-10-02 15:06] VITALS: BMI 31.9
[2023-10-02 16:00] VITALS: BP 167/78; PULSE 108; RESP 18; TEMP 37.4; O2SAT 90
--- NOTE | 2023-10-02 16:18 | PC.NURSE ---
primary tech note: nurse Delmy notified of patient's 1600 vital signs
[2023-10-02 16:51] LABS: POC Glucose,Bedside 149 (70-110)
--- NOTE | 2023-10-02 17:35 | PC.NURSE ---
Tramadol given for reported knee pain, relief noted per patient. VS stable and patient remained on room air. Nausea and slight fever noted at dinner time, zofran and tylenol given, awaiting to reassess.
[2023-10-02 18:15] VITALS: BP 140/85; PULSE 112; RESP 22; O2SAT 95
--- NOTE | 2023-10-02 18:20 | CT_ITS ---
PROCEDURE INFORMATION: Exam: CT Head Without Contrast Exam date and time: 10/02/2023 6:38 PM Age: 73 years old Clinical indication: Altered mental status/memory loss; Additional info: Confusion TECHNIQUE: Imaging protocol: Computed tomography of the head without contrast. Radiation optimization: All CT scans at this facility use at least one of these dose optimization techniques: automated exposure control; mA and/or kV adjustment per patient size (includes targeted exams where dose is matched to clinical indication); or iterative reconstruction. COMPARISON: CT HEAD/BRAIN WO CON 25/09/2023 18:13 FINDINGS: Brain: Mild chronic brain volume loss and chronic small vessel ischemic changes. Mild chronic brain volume loss and chronic small vessel ischemic changes. Cerebral ventricles: No ventriculomegaly. Paranasal sinuses: Left ethmoid air cell retention cyst. Mastoid air cells: Visualized mastoid air cells are well aerated. Bones/joints: Unremarkable. No acute fracture. Soft tissues: Unremarkable. IMPRESSION: No acute intracranial findings. If there is high clinical concern for acute infarction, consider MRI for further evaluation. ASSESSMENT: ASPECTS score ([place] Stroke Program Early CT Score) is 10.
--- NOTE | 2023-10-02 18:21 | PC.NURSE ---
patient complained of feeling funny, patient confused to place and situation. Dr. Morrow called and notified. New orders placed
[2023-10-02 19:34] LABS: Basophils # 0.1 K/mm3 (0-0.2); Basophils % 0.8 % (0.1-2.0); Eosinophils # 0.2 K/mm3 (0.0-0.4); Eosinophils % 2.9 % (0.1-12.0); Hematocrit 41.9 % (37.0-47.0); Lymphocytes # 1.3 K/mm3 (0.7-4.5); Lymphocytes % 17.6 % (10-50); Mean Corpuscular HGB Conc 31.2 g/dL (31.8-35.4); Mean Corpuscular Hemoglobin 30.7 pg (27.0-31.2); Mean Corpuscular Volume 98.5 fl (81-99); Mean Platelet Volume 7.9 fl (7.4-10.4); Monocytes # 0.5 K/mm3 (0.1-1.0); Monocytes % 6.7 % (1.7-9.3); Neutrophils # 5.4 K/mm3 (1.8-7.8); Platelet Count 277 K/mm3 (142-424); Red Blood Count 4.26 M/mm3 (4.20-5.40); Red Cell Distribution Width 13.5 % (11.5-17.5); White Blood Count 7.5 K/mm3 (4.8-10.8)
[2023-10-02 19:42] LABS: Hemoglobin 13.1 g/dL (12.2-16.2)
[2023-10-02 19:49] LABS: Anion Gap 13.7 mEq/L (5-15); Blood Urea Nitrogen 27 mg/dl (7-17); Calcium 8.5 mg/dl (8.4-10.2); Carbon Dioxide 22 mmol/L (22.0-30.0); Chloride 105 mmol/L (98-107); Creatinine Clearance Estimated 64 mL/min (50-200); Estimated Glomerular Filt Rate 54 ml/min (>60); GFR (African American) 66 ML/MIN (>60); Glucose 173 mg/dl (74-100); Potassium 4.7 mmoL/L (3.5-5.1); Sodium 136 mmol/L (136-145)
[2023-10-02 20:00] VITALS: BP 153/76; PULSE 113; RESP 18; TEMP 37.3; O2SAT 93
[2023-10-02 20:12] LABS: POC Glucose,Bedside 167 (70-110)
--- NOTE | 2023-10-02 20:15 | PC.NURSE ---
Patient concerned about not having her home medications since admission, specifically her blood thinner . Dr. Morrow ( internal medicine nurse practitioner for [facility]) was called and new orders received to start patient on 40meq of Lovenox daily, starting dose tonight. Order was faxed to pharmacy. Patient and family updated.
[2023-10-02] MEDS: ENOXAPARIN 40MG/0.4ML SYRINGE 40 MG SQ (21:21)
[2023-10-03] MEDS: ACETAMINOPHEN 325MG TAB 650 MG PO ×4 (00:14→15:59)
[2023-10-03 04:00] VITALS: BP 169/83; PULSE 102; RESP 18; TEMP 37.2; O2SAT 98; BMI 31.1
--- NOTE | 2023-10-03 05:21 | PC.NURSE ---
Patient has been awake most the shift with only increment sleeping periods. Patient has complained of pain most the shift. Medicated per orders and provided an ice pack with minimal improvements. Patient states the pain is getting worse. Patient has adequate urinary output via purewick and incontinent episodes. Patient up to bedside once this shift with max assist of one. No episodes of confusion or hallucinations this shift. Call petersen, bedside table, water pitcher, and personal belongings all with in reach. Plan of care is ongoing.
[2023-10-03 06:07] LABS: POC Glucose,Bedside 150 (70-110)
[2023-10-03 08:00] VITALS: BP 115/61; PULSE 107; RESP 20; TEMP 36.8; O2SAT 95
[2023-10-03 08:04] LABS: Chloride 104 mmol/L (98-107); Potassium 4.4 mmoL/L (3.5-5.1); Sodium 132 mmol/L (136-145)
[2023-10-03 08:07] LABS: Alanine Aminotransferase 14 U/L (12-78); Albumin Level 3.3 g/dl (3.5-5.0); Albumin/Globulin Ratio 0.9 (1.1-1.8); Alkaline Phosphatase 113 U/L (38-126); Anion Gap 8.4 mEq/L (5-15); Aspartate Amino Transferase 26 U/L (14-36); Bilirubin,Total 0.7 mg/dl (0.2-1.3); Blood Urea Nitrogen 21 mg/dl (7-17); Calcium 8.5 mg/dl (8.4-10.2); Carbon Dioxide 24 mmol/L (22.0-30.0); Creatinine Clearance Estimated 62 mL/min (50-200); Estimated Glomerular Filt Rate 54 ml/min (>60); GFR (African American) 66 ML/MIN (>60); Globulin 3.7 g/dL (1.3-3.2); Glucose 197 mg/dl (74-100)
[2023-10-03 08:08] LABS: Basophils % 0.4 % (0.1-2.0); Eosinophils # 0.2 K/mm3 (0.0-0.4); Eosinophils % 2.2 % (0.1-12.0); Hematocrit 33.4 % (37.0-47.0); Lymphocytes # 1.4 K/mm3 (0.7-4.5); Lymphocytes % 16.6 % (10-50); Mean Corpuscular HGB Conc 33.2 g/dL (31.8-35.4); Mean Corpuscular Hemoglobin 31.5 pg (27.0-31.2); Mean Corpuscular Volume 94.9 fl (81-99); Monocytes # 0.7 K/mm3 (0.1-1.0); Monocytes % 7.8 % (1.7-9.3); Neutrophils # 6.1 K/mm3 (1.8-7.8); Neutrophils % 73.1 % (37.0-80.0); Platelet Count 312 K/mm3 (142-424); Red Blood Count 3.52 M/mm3 (4.20-5.40); Red Cell Distribution Width 13.7 % (11.5-17.5); White Blood Count 8.3 K/mm3 (4.8-10.8)
[2023-10-03] MEDS: CEFTRIAXONE 1 GM 1 GM in 0.9 % SODIUM CHLORIDE 50 ML IV (09:21)
[2023-10-03 09:25] LABS: Hemoglobin 11.1 g/dL (12.2-16.2)
--- NOTE | 2023-10-03 09:41 | P.PN_ITS ---
Subjective *Date: 10/03/23 *Time: 09:41 Interval history: Spoke to Dr. Morrow about events overnight. Patient had some confusion and hallucinations overnight. Head CT was normal. She received Tramadol not long before the episode. Medical Exam Vital signs and Labs for Last 24 Hours: Vital Signs Temp Pulse Resp BP Pulse Ox O2 Del Method 10/03/23 08:00 98.3 F 107 H 20 115/61 95 Room Air 10/03/23 04:00 98.9 F 102 H 18 169/83 H 98 10/02/23 23:00 Room Air 10/02/23 21:00 Room Air 10/02/23 20:00 Room Air 10/02/23 20:00 99.1 F 113 H 18 153/76 H 93 L Room Air 10/02/23 19:00 Room Air 10/02/23 18:15 112 H 22 140/85 95 Room Air 10/02/23 17:00 Room Air 10/02/23 15:00 Room Air 10/02/23 13:00 Room Air 10/02/23 16:00 99.3 F 108 H 18 167/78 H 90 L Room Air 10/02/23 11:00 Room Air Intake and Output 10/02/23 10/03/23 10/03/23 23:59 07:59 15:59 Intake Total 170 / 1880 60 / 60 0 / 60 Output Total 400 / 1500 300 / 550 250 / 550 Balance -230 / 380 -240 / -490 -250 / -490 Intake: Intake, Oral Amount 120 / 1080 60 / 60 0 / 60 Intake, Total IV Amount 50 / 50 Ceftriaxone 1 gm 1 gm In 0.9 % 50 / 50 Sodium Chloride 50 ml @ 100 mls /hr IV DAILY [facility] Rx#:[id number] Output: Output, Urine Amount 400 / 1500 300 / 550 250 / 550 Other: Number of Unmeasured Voids 0 1 0 Weight 176 lb 2 oz Patient Weight 10/03/23 23:59 Weight 176 lb 2 oz Laboratory Results - last 24 hr 10/02/23 11:28: POC Glucose 160 H 10/02/23 11:29: SARS-CoV-2 (PCR) Not detected, Influenza A Untype (PCR) Not detected, Influenza Type B (PCR) Not detected 10/02/23 16:41: POC Glucose 149 H 10/02/23 19:01: WBC 7.5, RBC 4.26 D, Hgb 13.1 D, Hct 41.9, MCV 98.5, MCH 30.7, MCHC 31.2 L, RDW 13.5, Plt Count 277, MPV 7.9, Neut % (Auto) 72.0, Lymph % (Auto) 17.6, [place] % (Auto) 6.7, Eos % (Auto) 2.9, Baso % (Auto) 0.8, Neut # (Auto) 5.4, Lymph # (Auto) 1.3, [place] # (Auto) 0.5, Eos # (Auto) 0.2, Baso # (Auto) 0.1, Sodium 136, Potassium 4.7, Chloride 105, Carbon Dioxide 22, Anion G ap 13.7, BUN 27 H D, Creatinine 1.00 D, Estimated Creat Clear 64, Estimated GFR 54 L, Est GFR ( Amer) 66 D, Glucose 173 H D, Calcium 8.5, Magnesium 2.0 D 10/02/23 19:55: POC Glucose 167 H 10/03/23 06:00: POC Glucose 150 H 10/03/23 07:08: WBC 8.3, RBC 3.52 L, Hgb 11.1 L D, Hct 33.4 L, MCV 94.9, MCH 31.5 H, MCHC 33.2, RDW 13.7, Plt Count 312, MPV 8.0, Neut % (Auto) 73.1, Lymph % (Auto) 16.6, [place] % (Auto) 7.8, Eos % (Auto) 2.2, Baso % (Auto) 0.4, Neut # (Auto) 6.1, Lymph # (Auto) 1.4, [place] # (Auto) 0.7, Eos # (Auto) 0.2, Baso # (Auto) 0.0, Sodium 132 L, Potassium 4.4, Chloride 104, Carbon Dioxide 24, Anion Gap 8.4, BUN 21 H, Creatinine 1.00, Estimated Creat Clear 62, Estimated GFR 54 L , Est GFR ( Amer) 66, Glucose 197 H, Calcium 8.5, Total Bilirubin 0.7, AST 26, ALT 14, Alkaline Phosphatase 113, Total Protein 7.0, Albumin 3.3 L, Globulin 3.7 H, Albumin/Globulin Ratio 0.9 L I & O for Labs for Last 24 Hours: Intake & Output 09/30/23 10/01/23 10/02/23 10/03/23 23:59 23:59 23:59 23:59 Intake Total 2735 / 3725 1880 / 1880 60 / 60 Output Total 0 / 0 1500 / 1500 550 / 550 Balance 2735 / 3725 380 / 380 -490 / -490 Weight 168 lb 3 oz 180 lb 3.011 oz 176 lb 2 oz Constitutional: Present no acute distress Head: Absent normocephalic Respiratory: Present CTA bilaterally Cardiac: Present Reg Rate and Rhythm GI: Present soft; Absent distention or tenderness Extremities: Present joint swelling (Left knee is in an immobilizer and there is edema and ecchymosis around the patella, right knee has some edema and ecchymosis along the medial aspect of the knee) Skin: Present ecchymosis (Along the forehead and bilateral knees) Neuro: Present alert, awake and oriented x 3 Assessment and Plan *Assessment and plan (1) Vomiting: Status: Acute Category: Medical Code(s): R11.10 - Vomiting, unspecified (2) Dehydration: Status: Acute Category: Medical Code(s): E86.0 - Dehydration (3) KALIA (acute kidney injury): Status: Acute Category: Medical Code(s): N17.9 - Acute kidney failure, unspecified (4) CHI (closed head injury): Status: Acute Category: Medical Code(s): S09.90XA - Unspecified injury of head, initial encounter (5) Closed fracture of left patella: Status: Acute Category: Medical Code(s): S82.002A - Unspecified fracture of left patella, initial encounter for closed fracture (6) Hypertensive cardiovascular disease: Status: Chronic Qualifiers: Heart failure presence: unspecified whether heart failure present Qualified Code(s): I11.9 - Hypertensive heart disease without heart failure Category: Medical Code(s): I11.9 - Hypertensive heart disease without heart failure (7) Hyperlipidemia: Status: Acute Category: Medical Code(s): E78.5 - Hyperlipidemia, unspecified (8) Diabetes mellitus: Status: Chronic Qualifiers: Diabetes mellitus complication status: with other specified complication 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 supervisor insulin use: unspecified extermination supervisor insulin use status Diabetes mellitus type: type 2 Qualified Code(s): E11.69 - Type 2 diabetes mellitus with other specified complication Category: Medical Code(s): E11.9 - Type 2 diabetes mellitus without complications Plan Labs have improved, vomiting has resolved. Will change pain medication today and resume some of her home medications.
[2023-10-03] MEDS: humaLOG 100 UNITS/ML 3ML VIAL (SSI) SQ ×3 (10:46→20:43)
[2023-10-03] MEDS: 0.9 % SODIUM CHLORIDE 1000ML 1,000 ML 75 ML IV (10:47)
[2023-10-03] MEDS: METFORMIN 1000 MG 1 EACH PO ×2 (10:47→17:17)
[2023-10-03 10:50] LABS: POC Glucose,Bedside 265 (70-110)
[2023-10-03] MEDS: OXYCODONE 5MG IMMEDIATE RELEASE TABLET 5 MG PO ×2 (10:53→16:00)
[2023-10-03] MEDS: LISINOPRIL 10MG TABLET 10 MG PO (10:56)
[2023-10-03] MEDS: MORPHINE 2MG/ML SYRINGE 2 MG IV (13:38)
[2023-10-03 16:00] VITALS: BP 142/80; PULSE 99; RESP 18; TEMP 37.2; O2SAT 94
[2023-10-03 16:09] LABS: POC Glucose,Bedside 184 (70-110)
--- NOTE | 2023-10-03 16:10 | PC.NURSE ---
pt has been asleep for majority of shift. pt has been c/o pain throughout the shift and has been medicated per orders. pt has had sufficient output throughout shift via purewick and bedside commode x2 assist. pt has been eating better since yesterday per daughter. pt ate approximately 1/4 of lunch tray. pt has been satting well on room air. pt refused PT earlier in shift. pt has had no further complaints (besides pain) throughout shift.
[2023-10-03 20:00] VITALS: BP 139/73; PULSE 95; RESP 18; TEMP 37; O2SAT 94
[2023-10-03] MEDS: ENOXAPARIN 40MG/0.4ML SYRINGE 40 MG SQ (20:43)
[2023-10-03] MEDS: ATORVASTATIN 80 MG 1 EACH PO (20:43)
[2023-10-03 20:44] LABS: POC Glucose,Bedside 156 (70-110)
[2023-10-04] MEDS: 0.9 % SODIUM CHLORIDE 1000ML 1,000 ML 75 ML IV ×2 (00:03→12:51)
[2023-10-04] MEDS: OXYCODONE 5MG IMMEDIATE RELEASE TABLET 5 MG PO ×4 (00:07→19:43)
[2023-10-04] MEDS: ACETAMINOPHEN 325MG TAB 650 MG PO ×4 (00:07→19:43)
[2023-10-04 04:00] VITALS: BP 136/72; PULSE 92; RESP 16; TEMP 36.7; O2SAT 96; BMI 30.9
--- NOTE | 2023-10-04 05:09 | PC.NURSE ---
Pt is alert and oriented. Has rested most of the night. Complained of pain one time, treated per oct. Bed alarm on. Lung sounds clear. Bowel sounds active. Pt has been incontinent of brief, purewick in place. Pt has had no other complaints. Remains on room air, O2 sat >90%. Call light in reach.
[2023-10-04 06:09] LABS: POC Glucose,Bedside 131 (70-110)
[2023-10-04] MEDS: METFORMIN 1000 MG 1 EACH PO ×2 (06:59→16:24)
[2023-10-04 08:00] VITALS: BP 123/73; PULSE 91; RESP 20; TEMP 36.8; O2SAT 91
--- NOTE | 2023-10-04 08:25 | P.PN_ITS ---
Subjective *Date: 10/04/23 *Time: 08:25 Interval history: Patient feels a little better today, she was able to eat some of her breakfast. Pain under better control last night. Medical Exam Vital signs and Labs for Last 24 Hours: Vital Signs Temp Pulse Resp BP Pulse Ox O2 Del Method 10/04/23 07:00 Room Air 10/04/23 05:00 Room Air 10/04/23 04:00 98.0 F 92 H 16 136/72 96 Room Air 10/04/23 03:00 Room Air 10/04/23 00:53 Room Air 10/03/23 23:00 Room Air 10/03/23 21:00 Room Air 10/03/23 20:00 Room Air 10/03/23 20:00 98.6 F 95 H 18 139/73 94 L Room Air 10/03/23 18:54 Room Air 10/03/23 17:00 Room Air 10/03/23 16:00 99.0 F 99 H 18 142/80 H 94 L Room Air 10/03/23 14:44 Room Air 10/03/23 12:42 Room Air 10/03/23 11:00 Room Air 10/03/23 09:00 Room Air Intake and Output 10/03/23 10/04/23 10/04/23 23:59 07:59 15:59 Intake Total 770 / 1070 1032 / 1032 Output Total 0 / 0 Balance 770 / 520 1032 / 1032 Intake: Intake, Oral Amount 240 / 540 Intake, Total IV Amount 530 / 530 1032 / 1032 0.9 % Sodium Chloride 1000ML 1, 480 / 480 1032 / 1032 000 ml @ 75 mls/hr IV .[id number] [facility] Rx#:[id number] Ceftriaxone 1 gm 1 gm In 0.9 % 50 / 50 Sodium Chloride 50 ml @ 100 mls /hr IV DAILY [facility] Rx#:[id number] Output: Output, Urine Amount 0 / 0 Other: Number of Unmeasured Voids 1 Weight 174 lb 4 oz Patient Weight 10/04/23 23:59 Weight 174 lb 4 oz Laboratory Results - last 24 hr 10/03/23 07:08: WBC 8.3, RBC 3.52 L, Hgb 11.1 L D, Hct 33.4 L, MCV 94.9, MCH 31.5 H, MCHC 33.2, RDW 13.7, Plt Count 312, MPV 8.0, Neut % (Auto) 73.1, Lymph % (Auto) 16.6, [place] % (Auto) 7.8, Eos % (Auto) 2.2, Baso % (Auto) 0.4, Neut # (Auto) 6.1, Lymph # (Auto) 1.4, [place] # (Auto) 0.7, Eos # (Auto) 0.2, Baso # (Auto) 0.0 10/03/23 10:40: POC Glucose 265 H 10/03/23 16:01: POC Glucose 184 H 10/03/23 20:37: POC Glucose 156 H 10/04/23 06:02: POC Glucose 131 H I & O for Labs for Last 24 Hours: Intake & Output 10/01/23 10/02/23 10/03/23 10/04/23 23:59 23:59 23:59 23:59 Intake Total 2735 / 3725 1880 / 1880 1070 / 1070 1032 / 1032 Output Total 0 / 0 1500 / 1500 550 / 550 0 / 0 Balance 2735 / 3725 380 / 380 520 / 520 1032 / 1032 Weight 168 lb 3 oz 180 lb 3.011 oz 176 lb 2 oz 174 lb 4 oz Microbiology Reports for the Last 24 Hours: Microbiology 10/01/23 13:01 Blood Blood Culture - Preliminary 10/01/23 13:07 Blood Blood Culture - Preliminary Constitutional: Present no acute distress Head: Absent normocephalic Respiratory: Present CTA bilaterally Cardiac: Present Reg Rate and Rhythm GI: Present soft; Absent distention or tenderness Extremities: Present joint swelling (Left knee is in an immobilizer and there is edema and ecchymosis around the patella, right knee has some edema and ecchymosis along the medial aspect of the knee) Skin: Present ecchymosis (Along the forehead and bilateral knees) Neuro: Present alert, awake and oriented x 3 Assessment and Plan *Assessment and plan (1) Vomiting: Status: Acute Category: Medical Code(s): R11.10 - Vomiting, unspecified (2) Dehydration: Status: Acute Category: Medical Code(s): E86.0 - Dehydration (3) KALIA (acute kidney injury): Status: Acute Category: Medical Code(s): N17.9 - Acute kidney failure, unspecified (4) CHI (closed head injury): Status: Acute Category: Medical Code(s): S09.90XA - Unspecified injury of head, initial encounter (5) Closed fracture of left patella: Status: Acute Category: Medical Code(s): S82.002A - Unspecified fracture of left patella, initial encounter for closed fracture (6) Hypertensive cardiovascular disease: Status: Chronic Qualifiers: Heart failure presence: unspecified whether heart failure present Qualified Code(s): I11.9 - Hypertensive heart disease without heart failure Category: Medical Code(s): I11.9 - Hypertensive heart disease without heart failure (7) Hyperlipidemia: Status: Acute Category: Medical Code(s): E78.5 - Hyperlipidemia, unspecified (8) Diabetes mellitus: Status: Chronic Qualifiers: Diabetes mellitus complication status: with other specified complication Diabetes mellitus remote computer terminal operator insulin use: unspecified [facility] insulin use status Diabetes mellitus type: type 2 Qualified Code(s): E11.69 - Type 2 diabetes mellitus with other specified complication Category: Medical Code(s): E11.9 - Type 2 diabetes mellitus without complications Plan Improved since admission, recheck labs tomorrow.
[2023-10-04] MEDS: LISINOPRIL 10MG TABLET 10 MG PO (08:28)
[2023-10-04] MEDS: CEFTRIAXONE 1 GM 1 GM in 0.9 % SODIUM CHLORIDE 50 ML IV (08:28)
--- NOTE | 2023-10-04 09:27 | P.PN_ITS ---
Subjective *Date: 10/04/23 *Time: 09:27 Medical Exam Vital signs and Labs for Last 24 Hours: Vital Signs Temp Pulse Resp BP Pulse Ox O2 Del Method 10/04/23 08:00 98.3 F 91 H 20 123/73 91 L Room Air 10/04/23 07:00 Room Air 10/04/23 05:00 Room Air 10/04/23 04:00 98.0 F 92 H 16 136/72 96 Room Air 10/04/23 03:00 Room Air 10/04/23 00:53 Room Air 10/03/23 23:00 Room Air 10/03/23 21:00 Room Air 10/03/23 20:00 Room Air 10/03/23 20:00 98.6 F 95 H 18 139/73 94 L Room Air 10/03/23 18:54 Room Air 10/03/23 17:00 Room Air 10/03/23 16:00 99.0 F 99 H 18 142/80 H 94 L Room Air 10/03/23 14:44 Room Air 10/03/23 12:42 Room Air 10/03/23 11:00 Room Air Intake and Output 10/03/23 10/04/23 10/04/23 23:59 07:59 15:59 Intake Total 770 / 1070 1032 / 1512 480 / 1512 Output Total 0 / 0 0 / 0 Balance 770 / 520 1032 / 1512 480 / 1512 Intake: Intake, Oral Amount 240 / 540 480 / 480 Intake, Total IV Amount 530 / 530 1032 / 1032 0.9 % Sodium Chloride 1000ML 1, 480 / 480 1032 / 1032 000 ml @ 75 mls/hr IV .[id number] [facility] Rx#:[id number] Ceftriaxone 1 gm 1 gm In 0.9 % 50 / 50 Sodium Chloride 50 ml @ 100 mls /hr IV DAILY [facility] Rx#:[id number] Output: Output, Urine Amount 0 / 0 0 / 0 Other: Number of Unmeasured Voids 1 Weight 79.038 kg Patient Weight 10/04/23 23:59 Weight 79.038 kg Laboratory Results - last 24 hr 10/03/23 10:40: POC Glucose 265 H 10/03/23 16:01: POC Glucose 184 H 10/03/23 20:37: POC Glucose 156 H 10/04/23 06:02: POC Glucose 131 H I & O for Labs for Last 24 Hours: Intake & Output 10/01/23 10/02/23 10/03/23 10/04/23 23:59 23:59 23:59 23:59 Intake Total 2735 / 3725 1880 / 1880 1070 / 1070 1512 / 1512 Output Total 0 / 0 1500 / 1500 550 / 550 0 / 0 Balance 2735 / 3725 380 / 380 520 / 520 1512 / 1512 Weight 76.289 kg 81.732 kg 79.889 kg 79.038 kg Microbiology Reports for the Last 24 Hours: Microbiology 10/01/23 13:01 Blood Blood Culture - Preliminary 10/01/23 13:07 Blood Blood Culture - Preliminary The patient's infection will respond to the chosen ABx?: Yes Is the patient receiving the right drug, dose, and route?: Yes Could a more targeted ABx be ordered?: No (BLOOD CX SHOWS NO GROWTH AT 24 HOURS)
[2023-10-04] MEDS: FAMOTIDINE 20MG TABLET 20 MG PO ×2 (11:09→20:26)
[2023-10-04] MEDS: humaLOG 100 UNITS/ML 3ML VIAL (SSI) SQ ×3 (11:13→20:26)
[2023-10-04 11:17] LABS: POC Glucose,Bedside 195 (70-110)
[2023-10-04 16:00] VITALS: BP 139/89; PULSE 138; RESP 22; TEMP 36.7; O2SAT 93
[2023-10-04 16:17] LABS: POC Glucose,Bedside 176 (70-110)
[2023-10-04] MEDS: ONDANSETRON 4MG/2ML VIAL 4 MG IV (18:12)
--- NOTE | 2023-10-04 18:42 | PC.NURSE ---
VS stable and patient remained on room air. No confusion or hallucinations noted. Patient pain in left knee relieved with prn pain medications. No other changes noted.
[2023-10-04 19:45] LABS: POC Glucose,Bedside 173 (70-110)
[2023-10-04 20:00] VITALS: BP 152/84; PULSE 141; RESP 20; TEMP 38.3; O2SAT 94
[2023-10-04 20:10] VITALS: PULSE 140
[2023-10-04] MEDS: ATORVASTATIN 80 MG 1 EACH PO (20:26)
[2023-10-04] MEDS: ENOXAPARIN 40MG/0.4ML SYRINGE 40 MG SQ (20:26)
--- NOTE | 2023-10-04 20:30 | ECG_ITS ---
APPROVED REPORT Exam: Resting ECG HR:140 bpm ECG Measurements Heart Rate 140 AXES AK 107 P -23 QRSd 132 QRS -8 QT 325 T 109 QTc 407 Conclusion SINUS TACHYCARDIA WITH SHORT AK INTERVAL, POSSIBLE ATRIAL FLUTTER LEFT BUNDLE BRANCH BLOCK [120+ ms QRS DURATION, 80+ ms Q/S IN V1/V2, 85+ ms R IN I/aVL/V5/V6] ABNORMAL ECG UNCONFIRMED REPORT Electronically signed by : Jonathan Morrow MD 10/04/2023 22:00:16
--- NOTE | 2023-10-04 21:01 | CT_ITS ---
PROCEDURE INFORMATION: Exam: CTA Chest Without And With Contrast Exam date and time: 10/04/2023 9:20 PM Age: 73 years old Clinical indication: Shortness of breath; Additional info: Pe protocol TECHNIQUE: Imaging protocol: Computed tomographic angiography of the chest without and with contrast. Exam focused on the arteries. 3D rendering (Not supervised by radiologist): MIP and/or 3D reconstructed images were created by the technologist. Total images: 405 Radiation optimization: All CT scans at this facility use at least one of these dose optimization techniques: automated exposure control; mA and/or kV adjustment per patient size (includes targeted exams where dose is matched to clinical indication); or iterative reconstruction. Contrast material: ISOVUE 370; Contrast volume: 70 ml; Contrast route: INTRAVENOUS (IV); COMPARISON: CR XR CHEST PORTABLE 01/01/2021 10:59 PM FINDINGS: Pulmonary arteries: Adequate contrast opacification the pulmonary arteries. Main pulmonary artery is mildly dilated at 3.4 cm implying pulmonary arterial hypertension. No main or segmental pulmonary emboli. Distal subsegmental branch evaluation limited by motion. Aorta: Mildly atherosclerotic thoracic aorta without aneurysm or dissection. Lungs: Trachea and main bronchi are patent. Mild subpleural diffuse bilateral interstitial coarsening resembling chronic fibrotic disease. 12 mm benign right upper lobe cyst. No concerning infiltrate or airspace consolidation. No lung mass. 4 mm noncalcified right upper lobe nodule, axial image 34. Pleural spaces: Unremarkable. No pneumothorax. No pleural effusion. Heart: Normal heart size. Dense mitral annular calcifications. Trace pericardial effusion. Coronary arteries: Severe coronary artery calcifications. Mediastinal space: No mediastinal mass or fluid collection. Lymph nodes: No mediastinal or hilar lymphadenopathy. Liver: Decreased liver attenuation from phase of contrast versus steatosis. Adrenal glands: Adrenal thickening/hyperplasia. Kidneys and ureters: Nonspecific bilateral perinephric stranding. Intraperitoneal space: No acute process in the upper abdomen. Bones/joints: Osteopenia. Moderate degenerative changes cervicothoracic spine. Soft tissues: Unremarkable. Other findings: Mild limitations imposed by respiratory motion. IMPRESSION: 1. No acute pulmonary emboli. 2. No aortic aneurysm or dissection. 3. Severe coronary artery calcifications. 4. Trace pericardial effusion. 5. Mild chronic pulmonary interstitial fibrosis. Lungs are otherwise clear. 6. 4 mm noncalcified right upper lobe nodule. This is stable from CT angio neck January 02, 2021 compatible with benign process. No follow-up required.
[2023-10-04] MEDS: IOPAMIDOL-370 (76%);100ML BOTTLE 70 ML IV (21:32)
[2023-10-04] MEDS: 0.9 % SODIUM CHLORIDE 50 ML VIAL IV (21:32)
[2023-10-04] MEDS: SODIUM CHLORIDE 0.9% 10ML SYR (RAD ONLY) 10 ML IV (21:32)
[2023-10-04] MEDS: 0.9 % SODIUM CHLORIDE 500 ML IV ×2 (22:02→22:56)
[2023-10-04 22:30] LABS: Basophils % 0.3 % (0.1-2.0); Eosinophils # 0.2 K/mm3 (0.0-0.4); Eosinophils % 3.2 % (0.1-12.0); Hematocrit 31.8 % (37.0-47.0); Hemoglobin 10.5 g/dL (12.2-16.2); Lymphocytes # 1.8 K/mm3 (0.7-4.5); Mean Corpuscular HGB Conc 33.1 g/dL (31.8-35.4); Mean Corpuscular Hemoglobin 31.8 pg (27.0-31.2); Mean Corpuscular Volume 96.2 fl (81-99); Mean Platelet Volume 7.6 fl (7.4-10.4); Monocytes # 0.5 K/mm3 (0.1-1.0); Monocytes % 7.5 % (1.7-9.3); Platelet Count 312 K/mm3 (142-424); Red Cell Distribution Width 13.7 % (11.5-17.5); White Blood Count 6.5 K/mm3 (4.8-10.8)
[2023-10-04 22:32] LABS: Chloride 106 mmol/L (98-107); Potassium 4.4 mmoL/L (3.5-5.1); Sodium 136 mmol/L (136-145)
[2023-10-04 22:32] LABS: Microscopic, Urine URINE MICROSCOPIC (MICROSCOPIC)
[2023-10-04 22:35] LABS: Anion Gap 5.4 mEq/L (5-15); Blood Urea Nitrogen 18 mg/dl (7-17); Carbon Dioxide 29 mmol/L (22.0-30.0); Creatinine Clearance Estimated 62 mL/min (50-200); Estimated Glomerular Filt Rate 54 ml/min (>60); GFR (African American) 66 ML/MIN (>60); Lactic Acid 1.1 mmol/L (0.7-2.1)
[2023-10-04 22:36] LABS: Calcium 8.1 mg/dl (8.4-10.2); Glucose 155 mg/dl (74-100)
[2023-10-04 22:40] LABS: Appearance,Urine CLEAR (Clear); Bilirubin,Urine Negative (Negative); Blood, Urine Negative (Negative); Color,Urine YELLOW (Yellow); Glucose,Urine (UA) Negative (Negative); Ketones,Urine Negative (Negative); Leukocyte Esterase,Urine Negative (Negative); Nitrate,Urine Negative (Negative); Protein,Urine Negative (Negative); Urobilinogen,Urine 0.2 EU/dl (0.2)
[2023-10-04 22:48] LABS: Troponin I 0.13 ng/ml (0.00-0.034)
[2023-10-04 23:01] LABS: Bacteria,Urine Trace /lpf
[2023-10-05] VITALS (14 sets, daily range): BP systolic 96–148; BP diastolic 51–95; PULSE 65–197; RESP 14–20; TEMP 36.5–37.2; O2SAT 93–99; BMI 31.2
[2023-10-05] MEDS: OXYCODONE 5MG IMMEDIATE RELEASE TABLET 5 MG PO ×4 (01:24→20:23)
[2023-10-05] MEDS: ACETAMINOPHEN 325MG TAB 650 MG PO ×2 (01:24→14:34)
--- NOTE | 2023-10-05 05:35 | PC.NURSE ---
At beginning of shift, pt HR sustained 130s, pt asymptomatic, notified guidance consultant MD, new orders received and carried out. Pt HR in 60s, occasionally jumps to 130s, but will go back down quickly. Pt O2 sat dropped to 87%, applied 2L NC, O2 sat now 98% on 1L NC at this time. Pt did get up to bedside commode with 2 assist. Pt has complained of pain two times, treated per oct. Pt has had no other complaints. Family at bedside. Call light in reach.
[2023-10-05 06:09] LABS: POC Glucose,Bedside 125 (70-110)
[2023-10-05] MEDS: 0.9 % SODIUM CHLORIDE 1000ML 1,000 ML 75 ML IV ×2 (06:19→20:23)
[2023-10-05 06:28] LABS: Basophils % 0.3 % (0.1-2.0); Eosinophils # 0.3 K/mm3 (0.0-0.4); Eosinophils % 5.1 % (0.1-12.0); Hematocrit 30.9 % (37.0-47.0); Hemoglobin 10.2 g/dL (12.2-16.2); Lymphocytes # 2.1 K/mm3 (0.7-4.5); Lymphocytes % 36.6 % (10-50); Mean Corpuscular HGB Conc 33.1 g/dL (31.8-35.4); Mean Corpuscular Hemoglobin 31.7 pg (27.0-31.2); Mean Corpuscular Volume 95.6 fl (81-99); Mean Platelet Volume 8.5 fl (7.4-10.4); Monocytes # 0.6 K/mm3 (0.1-1.0); Monocytes % 9.5 % (1.7-9.3); Neutrophils # 2.8 K/mm3 (1.8-7.8); Neutrophils % 48.5 % (37.0-80.0); Platelet Count 307 K/mm3 (142-424); Red Blood Count 3.23 M/mm3 (4.20-5.40); Red Cell Distribution Width 13.9 % (11.5-17.5); White Blood Count 5.8 K/mm3 (4.8-10.8)
[2023-10-05 06:29] LABS: Chloride 108 mmol/L (98-107); Potassium 4.4 mmoL/L (3.5-5.1); Sodium 135 mmol/L (136-145)
[2023-10-05 06:32] LABS: Anion Gap 4.4 mEq/L (5-15); Blood Urea Nitrogen 17 mg/dl (7-17); Carbon Dioxide 27 mmol/L (22.0-30.0); Creatinine Clearance Estimated 62 mL/min (50-200); Estimated Glomerular Filt Rate 70 ml/min (>60); GFR (African American) 85 ML/MIN (>60)
[2023-10-05 06:33] LABS: Calcium 7.9 mg/dl (8.4-10.2); Glucose 126 mg/dl (74-100)
[2023-10-05] MEDS: METFORMIN 1000 MG 1 EACH PO ×2 (06:47→16:52)
[2023-10-05] MEDS: ONDANSETRON 4MG/2ML VIAL 4 MG IV ×2 (07:46→16:59)
[2023-10-05] MEDS: dilTIAZem 25MG/5ML VIAL 20 MG IV (07:56)
[2023-10-05] MEDS: FAMOTIDINE 20MG TABLET 20 MG PO ×2 (07:59→20:23)
[2023-10-05] MEDS: LISINOPRIL 10MG TABLET 10 MG PO (07:59)
[2023-10-05] MEDS: CEFTRIAXONE 1 GM 1 GM in 0.9 % SODIUM CHLORIDE 50 ML IV (07:59)
--- NOTE | 2023-10-05 08:08 | EXP.ACUTE.PN ---
Subjective *Date: 10/05/23 *Time: 08:45 Interval history: Patient's largest complaint this a.m. is her nausea. She has a regular diet sitting in front of her and can hardly stand to smell it. She has had very minimal p.o. intake. She had an episode with rapid heart rate during the night after which she received a 500 mL bolus. She denies chest pain and shortness of breath. She does have a headache this morning. She has difficulty with voiding and has had minimal urinary output. Bowels have not moved in over a week. CTA of chest 10/04/2023 IMPRESSION: 1. No acute pulmonary emboli. 2. No aortic aneurysm or dissection. 3. Severe coronary artery calcifications. 4. Trace pericardial effusion. 5. Mild chronic pulmonary interstitial fibrosis. Lungs are otherwise clear. 6. 4 mm noncalcified right upper lobe nodule. This is stable from CT angio neck January 02, 2021 compatible with benign process. No follow-up required. Laboratory work this morning shows a sodium of 135 and potassium of 4.4. BUN and creatinine are normal. Troponin at 2245 at 0.13 During assessment patient was noted to have irregular heartbeat. Monitor showing paroxysmal atrial fibrillation with varying ventricular rate in the 70s up to 193. She did receive some Zofran for her nausea. Given a bolus of Cardizem 30 mg and will be placed on a drip. Transferred to stepdown. Cardiology consulted. Medical Exam Vital signs and Labs for Last 24 Hours: Vital Signs Temp Pulse Pulse Resp BP Pulse Ox O2 Del Method 10/05/23 06:51 Room Air 10/05/23 04:00 70 10/05/23 05:00 Nasal Cannula 10/05/23 04:00 97.7 F 94 H 20 106/69 L 99 Nasal Cannula 10/05/23 03:00 Nasal Cannula 10/05/23 00:00 100 H 10/04/23 20:10 140 H 10/05/23 00:55 Nasal Cannula 10/05/23 00:00 98.2 F 65 20 137/74 96 Nasal Cannula 10/04/23 23:00 Nasal Cannula 10/04/23 21:00 Nasal Cannula 10/04/23 20:00 Room Air 10/04/23 20:00 100.9 F H 141 H 20 152/84 H 94 L Room Air 10/04/23 18:40 Room Air 10/04/23 17:00 Room Air 10/04/23 16:00 98.1 F 138 H 22 139/89 93 L Room Air 10/04/23 15:03 Room Air 10/04/23 13:07 Room Air 10/04/23 11:10 Room Air 10/04/23 08:30 Room Air 10/04/23 08:30 Room Air O2 Flow Rate 10/05/23 06:51 10/05/23 04:00 10/05/23 05:00 1 10/05/23 04:00 1 10/05/23 03:00 1 10/05/23 00:00 10/04/23 20:10 10/05/23 00:55 1 10/05/23 00:00 10/04/23 23:00 1 10/04/23 21:00 2 10/04/23 20:00 10/04/23 20:00 10/04/23 18:40 10/04/23 17:00 10/04/23 16:00 10/04/23 15:03 10/04/23 13:07 10/04/23 11:10 10/04/23 08:30 10/04/23 08:30 Intake and Output 10/04/23 10/05/23 10/05/23 19:59 03:59 11:59 Intake Total 840 / 840 Output Total 0 / 0 150 / 150 Balance 840 / 840 -150 / 690 Intake: Intake, Oral Amount 100 / 100 Intake, Total IV Amount 740 / 740 0.9 % Sodium Chloride 1000ML 1, 740 / 740 000 ml @ 75 mls/hr IV .[id number] [facility] Rx#:[id number] Output: Output, Urine Amount 0 / 0 150 / 150 Other: Number of Unmeasured Voids 1 1 Weight 176 lb 4 oz Patient Weight 10/05/23 11:59 Weight 176 lb 4 oz Laboratory Results - last 24 hr 10/04/23 11:08: POC Glucose 195 H 10/04/23 16:09: POC Glucose 176 H 10/04/23 19:38: POC Glucose 173 H 10/04/23 22:05: WBC 6.5, RBC 3.30 L, Hgb 10.5 L, Hct 31.8 L, MCV 96.2, MCH 31.8 H, MCHC 33.1, RDW 13.7, Plt Count 312, MPV 7.6, Neut % (Auto) 61.0, Lymph % (Auto) 28.0, [place] % (Auto) 7.5, Eos % (Auto) 3.2, Baso % (Auto) 0.3, Neut # (Auto) 4.0, Lymph # (Auto) 1.8, [place] # (Auto) 0.5, Eos # (Auto) 0.2, Baso # (Auto) 0.0, Sodium 136, Potassium 4.4, Chloride 106, Carbon Dioxide 29, Anion Gap 5.4, BUN 18 H, Creatinine 1.00, Estimated Creat Clear 62, Estimated GFR 54 L, Est GFR ( Amer) 66, Glucose 155 H, Lactate 1.1, Calcium 8.1 L, Troponin I 0.13 H 10/04/23 22:25: Urine Color Yellow, Urine Appearance Clear, Urine pH 6.0, Ur Specific [place] 1.010, Urine Protein Negative, Urine Glucose (UA) Negative, Urine Ketones Negative, Urine Blood Negative, Urine Nitrate Negative, Urine Bilirubin Negative, Urine Urobilinogen 0.2, Ur Leukocyte Esterase Negative, Urine RBC None, Urine WBC 3-5, Ur Squamous Epith Cells 5-10, Other Sediment Comment, Urine Bacteria Trace 10/05/23 05:26: WBC 5.8, RBC 3.23 L, Hgb 10.2 L, Hct 30.9 L, MCV 95.6, MCH 31.7 H, MCHC 33.1, RDW 13.9, Plt Count 307, MPV 8.5, Neut % (Auto) 48.5, Lymph % (Auto) 36.6, [place] % (Auto) 9.5 H, Eos % (Auto) 5.1, Baso % (Auto) 0.3, Neut # (Auto) 2.8, Lymph # (Auto) 2.1, [place] # (Auto) 0.6, Eos # (Auto) 0.3, Baso # (Auto) 0.0, Sodium 135 L, Potassium 4.4, Chloride 108 H, Carbon Dioxide 27, Anion Gap 4.4 L, BUN 17, Creatinine 0.80, Estimated Creat Clear 62, Estimated GFR 70, Est GFR ( Amer) 85 D, Glucose 126 H, Calcium 7.9 L 10/05/23 06:02: POC Glucose 125 H I & O for Labs for Last 24 Hours: Intake & Output 10/02/23 10/03/23 10/04/23 10/05/23 11:59 11:59 11:59 11:59 Intake Total 4205 / 4205 590 / 590 2402 / 2402 840 / 840 Output Total 700 / 700 1350 / 1350 0 / 0 150 / 150 Balance 3505 / 3505 -760 / -760 2402 / 2402 690 / 690 Weight 180 lb 3.2 oz 176 lb 2 oz 174 lb 4 oz 176 lb 4 oz Microbiology Reports for the Last 24 Hours: Microbiology 10/01/23 13:01 Blood Blood Culture - Preliminary 10/01/23 13:07 Blood Blood Culture - Preliminary Constitutional: Present mild distress Comment:: Atrial fibs with RVR Respiratory: Present CTA bilaterally (Anteriorly and posteriorly) Cardiac: Present Irregularly Regular (Atrial fibs with varying ventricular rate in the 70s up to 183) GI: Present soft and normal bowel sounds; Absent distention, tenderness or guarding Extremities: Absent tenderness, edema or calf tenderness Skin: Present dry (And warm) Neuro: Present alert, awake and oriented x 3 Assessment and Plan *Assessment and plan (1) Vomiting: Status: Acute Category: Medical Code(s): R11.10 - Vomiting, unspecified (2) Dehydration: Status: Acute Category: Medical Code(s): E86.0 - Dehydration (3) KALIA (acute kidney injury): Status: Acute Category: Medical Code(s): N17.9 - Acute kidney failure, unspecified (4) CHI (closed head injury): Status: Acute Category: Medical Code(s): S09.90XA - Unspecified injury of head, initial encounter (5) Closed fracture of left patella: Status: Acute Category: Medical Code(s): S82.002A - Unspecified fracture of left patella, initial encounter for closed fracture (6) Hypertensive cardiovascular disease: Status: Chronic Qualifiers: Heart failure presence: unspecified whether heart failure present Qualified Code(s): I11.9 - Hypertensive heart disease without heart failure Category: Medical Code(s): I11.9 - Hypertensive heart disease without heart failure (7) Hyperlipidemia: Status: Acute Category: Medical Code(s): E78.5 - Hyperlipidemia, unspecified (8) Diabetes mellitus: Status: Chronic Qualifiers: Diabetes mellitus complication status: with other specified complication Diabetes mellitus terminal carman insulin use: unspecified terminal carman insulin use status Diabetes mellitus type: type 2 Qualified Code(s): E11.69 - Type 2 diabetes mellitus with other specified complication Category: Medical Code(s): E11.9 - Type 2 diabetes mellitus without complications (9) Atrial fibrillation with rapid ventricular response: Status: Acute Category: Medical Code(s): I48.91 - Unspecified atrial fibrillation (10) Elevated troponin: Status: Acute Category: Medical Code(s): R79.89 - Other specified abnormal findings of blood chemistry Plan Patient has received a Cardizem bolus and will be placed on a drip. Will need to monitor blood pressure. Cardiology is present and has been consulted. Will do additional lab work and EKG and echo. Continue with pain and nausea management. KUB to assess GI status Dr. Garcia entry - Saw patient, agree with above note. Case discussed with cardiology. Patient needs to be inpatient, not observation.
--- NOTE | 2023-10-05 08:09 | XR_ITS ---
FINAL REPORT CLINICAL HISTORY: nausea vomiting constipation COMPARISON: None FINDINGS: A single supine view the abdomen was obtained. The bowel gas pattern is nonspecific but nonobstructive. There is a moderate amount of stool. Bilateral renal stones are likely present. Vascular calcifications are noted. Osseous structures are within normal limits. IMPRESSION: Probable bilateral renal stones. Moderate stool burden. Reviewed, Interpreted and Dictated by Kiley Mcgee MD Transcribed by Janel Davis Authenticated and [facility]
--- NOTE | 2023-10-05 08:12 | CA_ITS ---
APPROVED REPORT EXAM: Comprehensive 2D, Doppler, and color-flow Echocardiogram Floorperson: Sharon Yousif RDCS Ht: 5 ft 2 in Wt: 176lbs BSA: 1.81 BP: 139/84 mmHg Indications: AF HTN DM HLP 2D Dimensions Left Atrium 3.83 cm F: 2.7 - 3.8 LVOT 2.28 cm (M/F) 1.5-2.5 M-Mode Dimensions RVDd 1.66 cm (0.9-2.6) LVDd 6.06 cm (3.5-5.7) Ao Diam 3.11 cm (2.0-3.7) LVDs 5.31 cm (3.5-5.7) IVSd 0.83 cm (0.6-1.1) PWd 0.71 cm (0.6-1.1) EF (Teich) 26.20% FS 12.40% EDV (Teich) 184.10 mL ESV (Teich) 135.90 mL LV Diastology E Decel Time 208 (160-240 msec) E/A Ratio 1.2 MED E' 4.7 (>= 7 cm/sec) E'/MED E' Ratio 28.64 (<= 14) LAT E' 4.9 (>= 10 cm/sec) E/LAT E' Ratio 27.47 (<= 14) Aortic Valve LVOT Max 79.0 (70-110 cm/s) HOME Index 0.69 cm2/m2 LVOT VTI 13.95 cm AoV Peak Saad. 265.0 (50-130 cm/s) AO Mean GR. 14.10 (<5 mmHg) AO VTI 46.1 (18-25 cm) HOME (VTI) 1.24 (2.5-4.5 cm2) Mitral Valve MV E Max Saad. 135.0 (40-130 cm/s) MV A Velocity 111.0 (40-130 cm/s) E/A Ratio 1.21 MV Decel. Time 208 (160-240 ms) Left Ventricle The left ventricle is normal size. The left ventricular systolic function is normal. The left ventricular ejection fraction is within the normal range. There is increased LV wall thickness. Regional wall motion cannot be estimated due to technically difficult study. Systolic dysfunction is present. LVEF is 55%. LVEF is 55%. Right Ventricle The right ventricle is not well-visualized. Atria The left atrium is moderately dilated. The right atrium is not well-visualized. The interatrial septum is not well-visualized. Aortic Valve The aortic valve is mildly thickened. Moderate aortic stenosis. Peak velocity 2.7 m/s. Mean AV gradient 15 mmHg. Max AV gradient 29 mmHg. DI=0.29. Mild aortic regurgitation. Mitral Valve Severe mitral annular calcification (MAC). The mitral valve leaflets appear to have restricted motion. Mild mitral stenosis. Mean MV gradient 6 mmHg (HR 102 bpm). MVA by PHT is 2.9 cm???. Mild to moderate mitral regurgitation. Tricuspid Valve The tricuspid valve leaflets are thin and pliable. Mild tricuspid regurgitation. RVSP is 20-25 mmHg. Pulmonic Valve The pulmonic valve is not well-visualized. Great Vessels The aortic root is not well-visualized. Pericardium Small sized, anterior pericardial effusion is present. The largest pocket measures 0.5 cm in diastole. There is slight invagination of the right ventricle during diastole, but without clear echo indication of tamponade. Other Information Study Quality: Technically Difficult Conclusion Technically difficult study due to poor acoustic windows. Normal LV systolic function. RV not well-visualized. LA dilation. RA not well-visualized. Moderate (peak velocity 2.7 m/s. Mean AV gradient 15 mmHg. Max AV gradient 29 mmHg. DI=0.29). Mild AI. Severe MAC. Mild MS (Mean MV gradient 6 mmHg (HR 102 bpm). MVA by PHT is 2.9 cm???). Mild to moderate MR. Mild TR. Small sized, anterior pericardial effusion. The largest pocket measures 0.5 cm in diastole. There is slight invagination of the right ventricle during diastole, but without clear echo indication of tamponade. Electronically signed by : Arpita Person MD 10/06/2023 23:13:19
--- NOTE | 2023-10-05 08:21 | ECG_ITS ---
APPROVED REPORT Exam: Resting ECG HR:171 bpm ECG Measurements Heart Rate 171 AXES QRSd 124 QRS -11 QT 263 T 153 QTc 355 Conclusion ATRIAL FIBRILLATION WITH RAPID VENTRICULAR RESPONSE LEFT BUNDLE BRANCH BLOCK [120+ ms QRS DURATION, 80+ ms Q/S IN V1/V2, 85+ ms R IN I/aVL/V5/V6] CRITICAL TEST RESULT UNCONFIRMED REPORT Electronically signed by : Jonathan Morrow MD 10/05/2023 19:59:45
[2023-10-05] MEDS: dilTIAZem HCL 100 MG in 0.9 % SODIUM CHLORIDE 100 ML 10 MG IV (08:43)
--- NOTE | 2023-10-05 08:49 | PC.NURSE ---
pt moved to stepdown at this time and started on Cardizem drip at 10 mg/hr rate 89-190's. pt denies chest pain. pt c/o headache and was medicated per oct. pt requesting to have minimal noise in room and to not have any knocking on the door. pt's monitor was placed on night mode in room and sign placed on door to not knock. pt room temp turned down per pt request. pt was rounded on by MUNA Almanzar Cardiology and Dr. Garcia. pt awaiting echo at this time. KUB was obtained. bed alarm on and call light w/i reach. family in waiting area.
[2023-10-05 08:52] LABS: Troponin I 0.19 ng/ml (0.00-0.034)
[2023-10-05 08:55] LABS: Magnesium 1.7 mg/dl (1.6-2.3)
--- NOTE | 2023-10-05 08:56 | EXP.CARD.CON ---
History of Present Illness History of Present Illness Consult date: 10/05/23 Requesting physician: Cosme Garcia Consult reason: atrial fibrillation Chief complaint: N/V, New onset A. fib with RVR Additional Medical History:: 1. Recent fall with left patella fracture and closed head injury A. CTA of the head-no acute injury on 09/25/2023 and 10/02/2023 2. New onset atrial fibrillation, 10/05/2023 3. Hypertension A. Echo, 12/2020, biatrial enlargement, normal LV size, mild concentric LVH, EF 55% with no regional WMA, grade 1 DD. Mild RV enlargement with normal contractility. Moderate MR and mild TR with RVSP 42 mmHg 4. History of carotid artery stenosis A. Plavix therapy 5. Diabetes mellitus, poorly controlled A. Hemoglobin A1c, greater than 10 6. Hypertension 7. Hyperlipidemia History of present illness: 73-year-old white female admitted for nausea, vomiting and dehydration with acute renal injury which responded well to oral fluids. Patient is known to have a left patella fracture and closed head injury with recent CT scans of the head showing no acute intracranial findings on scans of the head 7 days apart. Patient was feeling well yesterday but noted to go into atrial fibrillation with a rapid ventricular response last evening/early this morning. Diltiazem drip has been ordered and recently started this morning. Patient denies any chest pain, pressure or tightness. Cardiology consulted for evaluation recommendations Hemoglobin is stable around 10-11 Renal functions are within normal limits Troponin noted to be mildly elevated at 0.13 after patient went into atrial fibrillation. CTA of the chest obtained yesterday shows no evidence of pulmonary embolus. She does have severe coronary artery calcifications on CTA of the chest. No prior cardiac history per patient's daughter. [facility] Disclaimer: The information contained in this section may have been updated after the patient was seen, as this information can be updated by other users. Medical History (Updated 10/05/23 @ 09:19 by MUNA Zayas) Cerebrovascular accident Diabetes mellitus History of TIA (transient ischemic attack) Hyperlipidemia Hypertensive cardiovascular disease Vocal cord paralysis Surgical History History of carotid endarterectomy History of colonoscopy Family History Diabetes Coronary artery disease Hyperlipidemia Heart attack Hypertension Stroke Social History (Updated 10/01/23 @ 13:17 by Yazmin Medrano RN) Smoking Status: Never smoker alcohol intake: never substance use type: denies use current occupational status: retired Travel in the last 8 weeks: None household members: family housing: house current occupational exposures/hazards: No caffeine: Yes Review of Systems Review of Systems Review of systems:: pertinent systems reviewed and negative unless documented below Constitutional Constitutional: Reports headache(s) (since recent fall with head trauma ) ENT Ears, Nose, Mouth, and Throat: Reports headache(s) (since recent fall with head trauma ) *Cardiovascular Cardiovascular: Denies chest pain, Denies dyspnea and Reports rapid heart rate *Respiratory Respiratory: Denies cough and Denies dyspnea *Musculoskeletal Musculoskeletal: Reports arthralgias *Neurologic Neurologic: Reports headache(s) (since recent fall with head trauma ) Exam Data for Last 24 hours Vital signs and Labs for Last 24 Hours: Temp Pulse Resp BP Pulse Ox O2 Del Method O2 Flow Rate 98.2 F 156 H 18 96/51 L 98 Room Air 1 10/05/23 08:00 10/05/23 08:00 10/05/23 08:00 10/05/23 08:00 10/05/23 08:00 10/05/23 08:11 10/05/23 05:00 Laboratory Results - last 24 hr 10/04/23 11:08: POC Glucose 195 H 10/04/23 16:09: POC Glucose 176 H 10/04/23 19:38: POC Glucose 173 H 10/04/23 22:05: WBC 6.5, RBC 3.30 L, Hgb 10.5 L, Hct 31.8 L, MCV 96.2, MCH 31.8 H, MCHC 33.1, RDW 13.7, Plt Count 312, MPV 7.6, Neut % (Auto) 61.0, Lymph % (Auto) 28.0, Wood % (Auto) 7.5, Eos % (Auto) 3.2, Baso % (Auto) 0.3, Neut # (Auto) 4.0, Lymph # (Auto) 1.8, Wood # (Auto) 0.5, Eos # (Auto) 0.2, Baso # (Auto) 0.0, Sodium 136, Potassium 4.4, Chloride 106, Carbon Dioxide 29, Anion Gap 5.4, BUN 18 H, Creatinine 1.00, Estimated Creat Clear 62, Estimated GFR 54 L, Est GFR ( Amer) 66, Glucose 155 H, Lactate 1.1, Calcium 8.1 L, Troponin I 0.13 H 10/04/23 22:25: Urine Color Yellow, Urine Appearance Clear, Urine pH 6.0, Ur Specific [place] 1.010, Urine Protein Negative, Urine Glucose (UA) Negative, Urine Ketones Negative, Urine Blood Negative, Urine Nitrate Negative, Urine Bilirubin Negative, Urine Urobilinogen 0.2, Ur Leukocyte Esterase Negative, Urine RBC None, Urine WBC 3-5, Ur Squamous Epith Cells 5-10, Other Sediment Comment, Urine Bacteria Trace 10/05/23 05:26: WBC 5.8, RBC 3.23 L, Hgb 10.2 L, Hct 30.9 L, MCV 95.6, MCH 31.7 H, MCHC 33.1, RDW 13.9, Plt Count 307, MPV 8.5, Neut % (Auto) 48.5, Lymph % (Auto) 36.6, [place] % (Auto) 9.5 H, Eos % (Auto) 5.1, Baso % (Auto) 0.3, Neut # (Auto) 2.8, Lymph # (Auto) 2.1, Wood # (Auto) 0.6, Eos # (Auto) 0.3, Baso # (Auto) 0.0, Sodium 135 L, Potassium 4.4, Chloride 108 H, Carbon Dioxide 27, Anion Gap 4.4 L, BUN 17, Creatinine 0.80, Estimated Creat Clear 62, Estimated GFR 70, Est GFR ( Amer) 85 D, Glucose 126 H, Calcium 7.9 L 10/05/23 06:02: POC Glucose 125 H I & O for Last 24 hours: Intake & Output 10/02/23 10/03/23 10/04/23 10/05/23 11:59 11:59 11:59 11:59 Intake Total 4205 / 4205 590 / 590 2402 / 2402 840 / 840 Output Total 700 / 1100 1350 / 1350 0 / 0 150 / 150 Balance 3505 / 3105 -760 / -760 2402 / 2402 690 / 690 Weight 180 lb 3.2 oz 176 lb 2 oz 174 lb 4 oz 176 lb 4 oz Microbiology Reports for the Last 24 Hours: Microbiology 10/01/23 13:01 Blood Blood Culture - Preliminary 10/01/23 13:07 Blood Blood Culture - Preliminary Constitutional Constitutional: no acute distress Comments: Patient has a washcloth over her face due to headache from recent fall. She communicates verbally with no complaints of chest pain, pressure or tightness *Routine Respiratory Exam Respiratory: Present CTA bilaterally *Routine Cardiovascular Exam Cardiovascular: Present murmur and tachycardia *Routine Extremities Exam Extremities: Absent edema *Routine Neurological Exam Neurological: Present alert, oriented X3 and moving all extremities Meds Home Medications and Allergies Home Medications Medication Instructions Recorded Confirmed Type metformin 1,000 mg tablet 1,000 mg PO BID Diabetes 01/02/21 10/01/23 History atorvastatin 80 mg tablet 80 mg PO DAILY Cholesterol 02/03/22 10/01/23 History blood sugar diagnostic (Accu-Chek #10 ea 02/03/22 10/01/23 History Amanda Plus test strips) clopidogrel 75 mg tablet 75 mg PO DAILY Blood Thinner 02/03/22 10/01/23 History lancets (Accu-Chek Softclix #100 ea 02/03/22 10/01/23 History Lancets) lisinopril 10 mg tablet 10 mg PO DAILY bp 02/03/22 10/01/23 History pen needle, diabetic 31 gauge x #1,200 ea 02/03/22 10/01/23 History 5/16 (Droplet Pen Needle) aspirin 81 mg capsule 81 mg PO DAILY Blood Thinner 06/29/23 10/01/23 History ergocalciferol (vitamin D2) 10 mcg 10 mcg PO BID Supplement 06/29/23 10/01/23 History (400 unit) tablet insulin aspart U-100 100 unit/mL See Rx Instructions .Route 06/29/23 10/01/23 History (3 mL) subcutaneous pen (Novolog .COMPLEX Diabetes FlexPen U-100 Insulin aspart) vitamin B12 500 mcg-folic acid 400 1 tab PO DAILY Supplement 06/29/23 10/01/23 History mcg tablet insulin glargine 100 unit/mL (3 40 unit SQ HS 10/01/23 10/01/23 History mL) subcutaneous pen (Lantus Solostar U-100 Insulin) ondansetron HCl 4 mg tablet 4 mg PO Q6 10/01/23 10/01/23 History tramadol 50 mg tablet 50 mg PO Q6HP PRN Moderate Pain 10/01/23 10/02/23 History (Scale Score 5-6) New Prescriptions to Start Prescriptions: Allergies Allergy/AdvReac Type Severity Reaction Status Date / Time No Known Allergies Allergy Verified 09/25/23 17:56 Assessment and Plan *Assessment and plan (1) Atrial fibrillation with rapid ventricular response: Status: Acute Category: Medical Code(s): I48.91 - Unspecified atrial fibrillation (2) Elevated troponin: Status: Acute Category: Medical Code(s): R79.89 - Other specified abnormal findings of blood chemistry (3) CHI (closed head injury): Status: Acute Qualifiers: Encounter type: subsequent encounter Qualified Code(s): S09.90XD - Unspecified injury of head, subsequent encounter Category: Medical Code(s): S09.90XA - Unspecified injury of head, initial encounter (4) Carotid stenosis, bilateral: Status: Acute Category: Medical Code(s): I65.23 - Occlusion and stenosis of bilateral carotid arteries (5) Obesity (BMI 30.0-34.9): Status: Chronic Category: Medical Code(s): E66.9 - Obesity, unspecified (6) Headache: Status: Acute Qualifiers: Headache chronicity pattern: unspecified pattern Headache type: unspecified Intractability: not intractable Qualified Code(s): R51.9 - Headache, unspecified Category: Medical Code(s): R51.9 - Headache, unspecified (7) Hypertensive cardiovascular disease: Status: Chronic Qualifiers: Heart failure presence: unspecified whether heart failure present Qualified Code(s): I11.9 - Hypertensive heart disease without heart failure Category: Medical Code(s): I11.9 - Hypertensive heart disease without heart failure (8) Hyperlipidemia: Status: Acute Qualifiers: Hyperlipidemia type: mixed hyperlipidemia Qualified Code(s): E78.2 - Mixed hyperlipidemia Category: Medical Code(s): E78.5 - Hyperlipidemia, unspecified (9) Diabetes mellitus: Status: Chronic Qualifiers: Diabetes mellitus complication status: with other specified complication Diabetes mellitus superintendent container terminal insulin use: unspecified superintendent container terminal insulin use status Diabetes mellitus type: type 2 Qualified Code(s): E11.69 - Type 2 diabetes mellitus with other specified complication Category: Medical Code(s): E11.9 - Type 2 diabetes mellitus without complications Plan 1. New onset atrial fibrillation with rapid ventricular response -IV Cardizem unable to slow rate so IV amiodarone started with subsequent conversion to sinus rhythm. -Check echocardiogram -Check thyroid panel -[id number] score of at least 5 (age, sex, hypertension, diabetes, PAD) -Start Lovenox 1 mg/kg and transition to oral anticoagulation at time of discharge. Patient may need surgery on her patella this admission 2. Elevated troponin, likely type II non-STEMI -Severe coronary calcifications noted on CTA of the chest -Check echocardiogram and consider left heart catheterization -Add beta-radha therapy if blood pressure and heart rate tolerate. 3. Poorly controlled diabetes with hemoglobin A1c greater than 10 -Defer to PCP -Consider Farxiga or Jardiance due to cardiovascular benefit 4. Recent nausea and vomiting with KALIA, resolved 5. Hyperlipidemia -Resume statin therapy 6. 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 Recent fall with left patellar fracture and closed head injury -Needs surgery for patella fracture -CT of the head on 2 separate occasions negative for acute intracranial injury Echo shows reduced EF of about 45%. Start Lovenox Recommend lexiscan myoview tomorrow to assess pre-op risk for knee surgery. Stop dilitiazem drip Start metoprolol tartrate 25 mg BID and titrate up as tolerated.
[2023-10-05] MEDS: ENOXAPARIN 80MG/0.8ML SYRINGE 80 MG SQ ×2 (09:41→20:22)
[2023-10-05 09:48] LABS: Free Thyroxine Index 4.1 ug/dL (5.93-13.13); T4 (Thyroxine) 8.8 ug/dl (5.53-11.0); Triiodothryronine (T3) Uptake 47 % (23.5-40.5)
[2023-10-05 10:02] LABS: Thyroid Stimulating Hormone 2.59 uIU/mL (0.465-4.68)
[2023-10-05] MEDS: AMIODARONE HCL 150 MG in DEXTROSE 5 % IN WATER 100 ML 618 MG IV (10:22)
--- NOTE | 2023-10-05 10:30 | PC.NURSE ---
Spoke with MUNA Almanzar regarding Cardizem and Amiodarone, informed to infuse both drips.
[2023-10-05] MEDS: AMIODARONE HCL 900 MG in DEXTROSE 5 % IN WATER 500 ML 34.5300000000000011 MG IV (10:35)
--- NOTE | 2023-10-05 10:35 | PC.NURSE ---
Amiodarone infusion started at this time. pt placed back on her nasal cannula that she has been wearing prn. 1LNC in place sats 96.
--- NOTE | 2023-10-05 10:50 | ECG_ITS ---
APPROVED REPORT Exam: Resting ECG HR:100 bpm ECG Measurements Heart Rate 100 AXES QRSd 133 QRS 189 QT 394 T 74 QTc 451 Conclusion Sinus tachy RBBB ST elevation noted in anterolateral leads UNCONFIRMED REPORT Electronically signed by : Jonathan Morrow MD 10/05/2023 19:58:25
--- NOTE | 2023-10-05 11:30 | DIET.NUTRFU ---
Patient continues on diabetic diet with fair po intake of 50-100%. Patient has been had BM, provider aware and KUB ordered. Will continue to follow
--- NOTE | 2023-10-05 12:32 | ECG_ITS ---
APPROVED REPORT Exam: Resting ECG HR:95 bpm ECG Measurements Heart Rate 95 AXES IL 141 P 54 QRSd 139 QRS -3 QT 411 T 120 QTc 464 Conclusion SINUS RHYTHM LEFT BUNDLE BRANCH BLOCK [120+ ms QRS DURATION, 80+ ms Q/S IN V1/V2, 85+ ms R IN I/aVL/V5/V6] ABNORMAL ECG UNCONFIRMED REPORT Electronically signed by : Jonathan Morrow MD 10/05/2023 19:56:52
--- NOTE | 2023-10-05 12:32 | PC.NURSE ---
RT called d/t pt showing NSR on monitor, ekg obtained.
--- NOTE | 2023-10-05 13:28 | PC.NURSE ---
echo at bedside. verbal order per MUNA Almanzar to stop Cardizem drip and that pt will be started on Metoprolol BID. Continue Amiodarone drip.
[2023-10-05] MEDS: METOPROLOL TARTRATE 25MG TABLET 25 MG PO ×2 (14:27→20:23)
--- NOTE | 2023-10-05 16:51 | PC.NURSE ---
fsbs-206, pt not given insulin d/t not having much po intake and being given Metformin at this time.
--- NOTE | 2023-10-05 17:00 | PC.NURSE ---
pt given Metformin and had vomiting episode after, pt medicated for nausea per MAR.
[2023-10-05 17:22] LABS: POC Glucose,Bedside 206 (70-110)
--- NOTE | 2023-10-05 17:32 | PC.NURSE ---
pt alert and oriented t/o shift. pt ls clear t/o. abdomen soft, nontender. pt has not had a bowel movement this shift but does have active bowel sounds. pt does have intermittent n/v and was medicated with prn Zofran which relieves symptoms. pt to be NPO at midnight for test tomorrow. pt initially in afib/aflutter rvr at beginning of shift. pt was on a Cardizem drip and Amiodarone drip. pt converted to NSR and Cardizem drip stopped. Amiodarone drip remains infusing at 0.5 mg/min at this time. pt up to bsc this shift with assist. pt has knee brace on left leg. family at bedside. pt had requested to limit visitors and noise. call light w/i reach.
[2023-10-05 20:20] LABS: POC Glucose,Bedside 229 (70-110)
[2023-10-05] MEDS: humaLOG 100 UNITS/ML 3ML VIAL (SSI) SQ (20:22)
[2023-10-05] MEDS: SENNOSIDES 8.6MG/DOCUSATE 50MG TABLET 1 TAB PO (20:23)
[2023-10-05] MEDS: ATORVASTATIN 80 MG 1 EACH PO (20:24)
[2023-10-05] MEDS: PROMETHAZINE HCL 25MG/ML 1ML VIAL 12.5 MG IV (22:21)
[2023-10-06] VITALS (24 sets, daily range): BP systolic 104–158; BP diastolic 39–82; PULSE 69–111; RESP 12–25; TEMP 36.7–37.3; O2SAT 90–100; BMI 32.6; BMI 32.0
--- NOTE | 2023-10-06 | CA_ITS ---
APPROVED REPORT Exam: Pharmacologic Technologist: Kacy Mace, Ht: 5 ft 3 in Wt: 165 lbs BSA: 1.78 m2 HR: 67 bpm BP: 136/91 mmHg Rhythm: Normal sinus rhythm, LBBB Medical History Medications: Aspirin,,,,, Metformin,,,,, INSULIN,,,,, Tramadol,,,,, CloPIdogrel,,,,, Vit B12,,,,, AtorvaASTATIN,,,,, ONdasetron,,,,, Vit D2,,,,, Lancets,,,,, Lisnopril,,,,, Cardiac Risk Factors: HTN, Hyperlipidemia, Diabetes (insulin) Stress Test Details Test: LEXISCAN HR Resting HR: 85 bpm Max Heart Rate (APMHR): 146 bpm Max HR Achieved: 103 bpm Target HR (85% APMHR): 124 bpm % of APMHR: 71 Recovery HR: 93 bpm BP Resting BP: 162/55 mmHg Max BP: 168/86 mmHg Recovery BP: 158.0/84.0 mmHg ECG Resting ECG: Normal sinus rhythm, LBBB Stress ECG: No significant ST changes Arrhythmia: None Clinical Exercise duration: 04:01 min Highest Stage Achieved: Stress ECG Conclusion During lexiscan pt experinced anxious and nausea. Ectopy: None ST changes: None Conclusion: Nondiagnostic Lexiscan stress test due to baseline left bundle branch block. Myoview images are reported separately. Test Summary REST . . . . . . . Sitting REST 05:11 . . 85 . 162/ 55 . . Stage 1 . . . . . . . Myoview Injected Stage 1 01:00 . . 94 . . . . Stage 2 01:00 . . 97 . 154/ 81 . . Stage 3 01:00 . . 97 . 157/ 82 . . Stage 4 01:00 . . 98 . 168/ 86 . . Stage 4 01:01 . . 98 . 168/ 86 . Stop exercise at 04:01 RECOVERY 01:00 . . 100 . . . . RECOVERY 02:00 . . 97 . 168/ 93 . . RECOVERY 03:00 . . 93 . 158/ 84 . . RECOVERY 04:00 . . 93 . 147/ 77 . . RECOVERY 04:02 . . 90 . 147/ 77 . . Electronically signed by : Arpita Person MD 10/06/2023 12:46:31
[2023-10-06] MEDS: OXYCODONE 5MG IMMEDIATE RELEASE TABLET 5 MG PO ×2 (04:22→08:18)
[2023-10-06 06:45] LABS: POC Glucose,Bedside 141 (70-110)
[2023-10-06 07:34] LABS: Chloride 109 mmol/L (98-107)
[2023-10-06 07:35] LABS: Potassium 3.9 mmoL/L (3.5-5.1); Sodium 135 mmol/L (136-145)
[2023-10-06 07:37] LABS: Blood Urea Nitrogen 12 mg/dl (7-17); Creatinine Clearance Estimated 65 mL/min (50-200); Estimated Glomerular Filt Rate 61 ml/min (>60); GFR (African American) 74 ML/MIN (>60)
[2023-10-06 07:38] LABS: Anion Gap 2.9 mEq/L (5-15); Carbon Dioxide 27 mmol/L (22.0-30.0); Glucose 143 mg/dl (74-100)
[2023-10-06 07:47] LABS: Basophils % 0.5 % (0.1-2.0); Eosinophils # 0.4 K/mm3 (0.0-0.4); Eosinophils % 5.3 % (0.1-12.0); Hematocrit 28.8 % (37.0-47.0); Hemoglobin 9.2 g/dL (12.2-16.2); Lymphocytes # 2.1 K/mm3 (0.7-4.5); Lymphocytes % 29.1 % (10-50); Mean Corpuscular HGB Conc 32.1 g/dL (31.8-35.4); Mean Corpuscular Hemoglobin 30.6 pg (27.0-31.2); Mean Corpuscular Volume 95.6 fl (81-99); Mean Platelet Volume 7.9 fl (7.4-10.4); Monocytes # 0.6 K/mm3 (0.1-1.0); Monocytes % 7.8 % (1.7-9.3); Neutrophils # 4.1 K/mm3 (1.8-7.8); Neutrophils % 57.4 % (37.0-80.0); Platelet Count 323 K/mm3 (142-424); Red Blood Count 3.01 M/mm3 (4.20-5.40); Red Cell Distribution Width 13.9 % (11.5-17.5); White Blood Count 7.2 K/mm3 (4.8-10.8)
--- NOTE | 2023-10-06 08:09 | P.PN_ITS ---
Subjective *Date: 10/06/23 *Time: 08:34 Interval history: Patient is better in several ways this a.m. Her headache is gone. She still experience some nausea and has required Zofran and Phenergan during the night. She is eating and drinking very little. Her daughter reports that she did vomit last evening. Her bowels have moved a small amount. She is voiding. She denies chest pain and shortness of breath. She was up to the bedside commode. She was unable to participate with physical therapy due to cardiac issues yesterday. Patient did convert to sinus rhythm yesterday while on Cardizem and amiodarone drips. Both have been discontinued and she is on p.o. amiodarone and metoprolol twice daily. She remains in a sinus rhythm with brief runs of SVT. Medical Exam Vital signs and Labs for Last 24 Hours: Vital Signs Temp Pulse Pulse Resp BP Pulse Ox O2 Del Method 10/06/23 06:00 80 10/06/23 00:00 80 10/05/23 20:30 80 10/06/23 07:00 Nasal Cannula 10/06/23 06:00 76 15 104/39 L 95 Nasal Cannula 10/06/23 05:00 Nasal Cannula 10/06/23 04:00 80 17 110/55 L 91 L Nasal Cannula 10/06/23 03:00 Nasal Cannula 10/06/23 02:00 80 14 116/67 93 L Nasal Cannula 10/06/23 01:00 Mechanical Ventilation 10/06/23 00:00 98.1 F 91 H 13 139/67 100 Nasal Cannula 10/05/23 23:00 Mechanical Ventilation 10/05/23 22:00 81 17 148/81 H 93 L Nasal Cannula 10/05/23 21:00 Nasal Cannula 10/05/23 20:00 97.7 F 86 14 121/65 95 Nasal Cannula 10/05/23 20:00 Nasal Cannula 10/05/23 18:00 92 H 16 141/69 H 93 L Nasal Cannula 10/05/23 18:39 Nasal Cannula 10/05/23 16:00 97 Nasal Cannula 10/05/23 17:00 Room Air 10/05/23 16:00 85 10/05/23 16:00 75 18 125/62 97 Nasal Cannula 10/05/23 12:00 90 10/05/23 14:37 Nasal Cannula 10/05/23 14:00 99.0 F 88 20 141/60 H 97 Nasal Cannula 10/05/23 13:00 89 18 124/95 H 97 Nasal Cannula 10/05/23 13:00 Nasal Cannula 10/05/23 12:00 98.4 F 10/05/23 11:55 96 H 18 135/69 99 Nasal Cannula 10/05/23 11:00 Nasal Cannula 10/05/23 10:28 197 H 18 117/71 95 10/05/23 10:05 172 H 18 124/63 96 Room Air 10/05/23 08:11 Room Air O2 Flow Rate 10/06/23 06:00 10/06/23 00:00 10/05/23 20:30 10/06/23 07:00 2 10/06/23 06:00 2 10/06/23 05:00 2 10/06/23 04:00 2 10/06/23 03:00 2 10/06/23 02:00 2 10/06/23 01:00 10/06/23 00:00 2 10/05/23 23:00 10/05/23 22:00 2 10/05/23 21:00 2 10/05/23 20:00 2 10/05/23 20:00 2 10/05/23 18:00 2 10/05/23 18:39 2 10/05/23 16:00 1 10/05/23 17:00 10/05/23 16:00 10/05/23 16:00 1 10/05/23 12:00 10/05/23 14:37 1 10/05/23 14:00 1 10/05/23 13:00 1 10/05/23 13:00 2 10/05/23 12:00 10/05/23 11:55 1 10/05/23 11:00 1 10/05/23 10:28 10/05/23 10:05 10/05/23 08:11 Intake and Output 10/05/23 10/06/23 10/06/23 19:59 03:59 11:59 Intake Total 1333.086 / 1333.086 982 / 2315.086 Output Total 400 / 400 150 / 550 Balance 933.086 / 933.086 -150 / 783.086 982 / 1765.086 Intake: Intake, Total IV Amount 1333.086 / 1333.086 982 / 2315.086 0.9 % Sodium Chloride 1000ML 1, 765 / 765 748 / 1513 000 ml @ 75 mls/hr IV .[id number] [facility] Rx#:[id number] Amiodarone HCl 150 mg In 100 / 100 Dextrose 5 % in Water 100 ml @ 618 mls/hr IV ONCE ONE Rx#: [id number] Amiodarone HCl 900 mg In 100 / 100 234 / 334 Dextrose 5 % in Water 500 ml @ 1 MG/MIN 34.533 mls/hr IV . Q15H1M [facility] Rx#:[id number] Ceftriaxone 1 gm 1 gm In 0.9 % 100 / 100 Sodium Chloride 50 ml @ 100 mls /hr IV DAILY [facility] Rx#:[id number] dilTIAZem HCL 100 mg In 0.9 % 54 / 54 Sodium Chloride 100 ml @ 5 MG/ HR 5 mls/hr IV .Q20H [facility] Rx#: [id number] Output: Output, Urine Amount 400 / 400 150 / 550 Other: Number of Unmeasured Voids 1 0 Number of Bowel Movements 0 1 Weight 184 lb 4.8 oz Patient Weight 10/06/23 11:59 Weight 184 lb 4.8 oz Laboratory Results - last 24 hr 10/05/23 05:26: Magnesium 1.7 D, Troponin I 0.19 H, TSH 2.59, Free T4 Index 4.1 L, Thyroxine (T4) 8.8, T3 Uptake 47 H 10/05/23 16:50: POC Glucose 206 H 10/05/23 20:12: POC Glucose 229 H 10/06/23 06:29: POC Glucose 141 H 10/06/23 07:01: WBC 7.2, RBC 3.01 L, Hgb 9.2 L, Hct 28.8 L, MCV 95.6, MCH 30.6, MCHC 32.1, RDW 13.9, Plt Count 323, MPV 7.9, Neut % (Auto) 57.4, Lymph % (Auto) 29.1, [place] % (Auto) 7.8, Eos % (Auto) 5.3, Baso % (Auto) 0.5, Neut # (Auto) 4.1, Lymph # (Auto) 2.1, [place] # (Auto) 0.6, Eos # (Auto) 0.4, Baso # (Auto) 0.0, Sodium 135 L, Potassium 3.9, Chloride 109 H, Carbon Dioxide 27, Anion Gap 2.9 L, BUN 12 D, Creatinine 0.90, Estimated Creat Clear 65, Estimated GFR 61, Est GFR ( Amer) 74, Glucose 143 H, Calcium 8.0 L I & O for Labs for Last 24 Hours: Intake & Output 10/03/23 10/04/23 10/05/23 10/06/23 11:59 11:59 11:59 11:59 Intake Total 590 / 590 2402 / 2402 840 / 840 2315.086 / 2315.086 Output Total 1350 / 1350 0 / 0 150 / 150 550 / 550 Balance -760 / -760 2402 / 2402 690 / 690 1765.086 / 1765.086 Weight 176 lb 2 oz 174 lb 4 oz 176 lb 4 oz 184 lb 4.8 oz Microbiology Reports for the Last 24 Hours: Microbiology 10/01/23 13:01 Blood Blood Culture - Preliminary 10/01/23 13:07 Blood Blood Culture - Preliminary Constitutional: Present no acute distress Comment:: Awake and alert and appears comfortable. She states her left knee hurts. Respiratory: Present CTA bilaterally Cardiac: Present Regular Rate Comment:: Monitor showing sinus rhythm in the 70s and 80s with brief runs of SVT. GI: Present soft and normal bowel sounds; Absent distention or tenderness Extremities: Present joint swelling (Left knee much improved); Absent edema (Right leg without edema.) Comment:: Left knee brace is off. Left leg with less or minimal edema. Tenderness over the knee. Neuro: Present alert and oriented x 3 Assessment and Plan *Assessment and plan (1) Atrial fibrillation with rapid ventricular response: Status: Acute Category: Medical Code(s): I48.91 - Unspecified atrial fibrillation (2) Elevated troponin: Status: Acute Category: Medical Code(s): R79.89 - Other specified abnormal findings of blood chemistry (3) CHI (closed head injury): Status: Acute Qualifiers: Encounter type: subsequent encounter Qualified Code(s): S09.90XD - Unspecified injury of head, subsequent encounter Category: Medical Code(s): S09.90XA - Unspecified injury of head, initial encounter (4) Carotid stenosis, bilateral: Status: Acute Category: Medical Code(s): I65.23 - Occlusion and stenosis of bilateral carotid arteries (5) Obesity (BMI 30.0-34.9): Status: Chronic Category: Medical Code(s): E66.9 - Obesity, unspecified (6) Headache: Status: Acute Qualifiers: Headache chronicity pattern: unspecified pattern Headache type: unspecified Intractability: not intractable Qualified Code(s): R51.9 - Headache, unspecified Category: Medical Code(s): R51.9 - Headache, unspecified (7) Hypertensive cardiovascular disease: Status: Chronic Qualifiers: Heart failure presence: unspecified whether heart failure present Qualified Code(s): I11.9 - Hypertensive heart disease without heart failure Category: Medical Code(s): I11.9 - Hypertensive heart disease without heart failure (8) Hyperlipidemia: Status: Acute Qualifiers: Hyperlipidemia type: mixed hyperlipidemia Qualified Code(s): E78.2 - Mixed hyperlipidemia Category: Medical Code(s): E78.5 - Hyperlipidemia, unspecified (9) Diabetes mellitus: Status: Chronic Qualifiers: Diabetes mellitus complication status: with other specified complication Diabetes mellitus director long term care insulin use: unspecified director long term care insulin use stat Diabetes mellitus type: type 2 Qualified Code(s): E11.69 - Type 2 diabetes mellitus with other specified complication Category: Medical Code(s): E11.9 - Type 2 diabetes mellitus without complications (10) Nausea and vomiting: Status: Acute Category: Medical Code(s): R11.2 - Nausea with vomiting, unspecified (11) KALIA (acute kidney injury): Status: Acute Category: Medical Code(s): N17.9 - Acute kidney failure, unspecified (12) Dehydration: Status: Acute Category: Medical Code(s): E86.0 - Dehydration (13) Closed fracture of left patella: Status: Acute Category: Medical Code(s): S82.002A - Unspecified fracture of left patella, initial encounter for closed fracture (14) Vomiting: Status: Acute Category: Medical Code(s): R11.10 - Vomiting, unspecified (15) Anemia: Status: Acute Category: Medical Code(s): D64.9 - Anemia, unspecified Plan Continue to provide comfort measures with antiemetics and pain medicine for the knee. Stress test is scheduled for today. H/H is slightly lower. Dr. Garcia entry - Saw patient, agree with above note.
[2023-10-06] MEDS: METFORMIN 1000 MG 1 EACH PO (08:17)
[2023-10-06] MEDS: SENNOSIDES 8.6MG/DOCUSATE 50MG TABLET 1 TAB PO (08:18)
[2023-10-06] MEDS: LISINOPRIL 10MG TABLET 10 MG PO (08:18)
[2023-10-06] MEDS: FAMOTIDINE 20MG TABLET 20 MG PO ×2 (08:18→21:05)
[2023-10-06] MEDS: AMIODARONE 200MG TABLET 400 MG PO ×2 (08:18→21:05)
[2023-10-06] MEDS: ONDANSETRON 4MG/2ML VIAL 4 MG IV (08:18)
[2023-10-06] MEDS: METOPROLOL TARTRATE 25MG TABLET 25 MG PO (08:18)
[2023-10-06] MEDS: CEFTRIAXONE 1 GM 1 GM in 0.9 % SODIUM CHLORIDE 50 ML IV (08:18)
--- NOTE | 2023-10-06 08:33 | PC.NURSE ---
pt got from bed to bsc and voided and then got to wheelchair for stress test, pt to stress test with transport
[2023-10-06] MEDS: SODIUM CHLORIDE 0.9% 10ML SYR (RAD ONLY) 10 ML IV ×2 (09:38)
[2023-10-06] MEDS: REGADENOSON 0.4MG/5ML SYRINGE 0.400000000000000022 MG IV (09:38)
[2023-10-06] MEDS: ISOTOPE MYOVIEW (PER STUDY) 1 DOSE IV (09:38)
--- NOTE | 2023-10-06 11:01 | PC.NURSE ---
pt back to 217 from stress test, amio drip stopped per protocol, pt back to bed, family at bedside, call light within reach
[2023-10-06] MEDS: 0.9 % SODIUM CHLORIDE 1000ML 1,000 ML 75 ML IV (11:13)
[2023-10-06] MEDS: ENOXAPARIN 80MG/0.8ML SYRINGE 80 MG SQ ×2 (11:14→21:05)
[2023-10-06] MEDS: humaLOG 100 UNITS/ML 3ML VIAL (SSI) SQ ×2 (11:24→17:08)
[2023-10-06 11:32] LABS: POC Glucose,Bedside 168 (70-110)
--- NOTE | 2023-10-06 13:00 | NM_ITS ---
APPROVED REPORT Exam: Nuclear Stress Test Indication: AFIB, HTN, High cholesterol, DM, Cardiomyopathy, Pre op Patient Location: Inpatient Stress Tech: Kacy REDD Tech:Amparo Wright, ARRT, RT (R)(N) Ht: 5 ft 3 in Wt: 184 lbs Bra Size: C HR: 85 bpm BP: 162/55 mmHg BSA: 1.87 m2 Rhythm: NSR TID: 1.08 BMI: 32.5 History: AFIB, HTN, High cholesterol, DM, Cardiomyopathy, Pre op Procedure: Patient received 0.4 mg of intravenous Lexiscan, resting heart rate 85 bpm, resting blood pressure 162/55 mmHg, with Lexiscan maximum heart rate achieved was 103 bpm which is % of the maximum predicted heart rate and blood pressure was 168/86 mmHg. With Lexiscan, patient denied any complaint of chest pain. Cardiac Stress and Resting SPECT Images: Cardiac Stress and Resting SPECT images were obtained using technetium 99m Myoview 30.8 mCi stress and 9.81 mCi at rest. Patient unable to do the prone images due to having a fracture of the patella. This may affect the diagnostic interpretation of the study findings. Resting and stress imaging and supine positions demonstrate a medium sized, severe, partially reversible perfusion defect in the distal anterior and apical LV quezada. Gated imaging demonstrates mild reduction in global LV systolic function. There is severe hypokinesis of the distal anterior and apical LV quez[place]. LVEF is calculated at 48%. Conclusion: Medium sized, severe, partially reversible perfusion defect in the distal anterior and apical LV quez[place]. Findings are suggestive of partial reversible ischemia. Gated imaging demonstrates mild reduction in global LV systolic function. There is severe hypokinesis of the distal anterior and apical LV quezada. LVEF is calculated at 48%. Electronically signed by : Arpita Person MD 10/06/2023 12:48:45
--- NOTE | 2023-10-06 13:45 | P.PN_ITS ---
Subjective Subjective Date: 10/06/23 Time: 13:46 Interval history: 73-year-old white female sitting at the edge of the bed in no acute distress. Results of stress test show evidence of apical and anteroapical ischemia with EF of 48% In light of the abnormal stress test and need for preop evaluation it is recommended the patient undergo a left heart catheterization for further evaluation. Risk, benefits and procedure explained to the patient she agrees. Family consents as well Exam Data for Last 24 hours Vital signs and Labs for Last 24 Hours: Temp Pulse Resp BP Pulse Ox O2 Del Method O2 Flow Rate 98.4 F 79 12 120/66 96 Nasal Cannula 2 10/06/23 13:08 10/06/23 12:00 10/06/23 12:00 10/06/23 12:00 10/06/23 12:00 10/06/23 12:55 10/06/23 12:55 Laboratory Results - last 24 hr 10/05/23 16:50: POC Glucose 206 H 10/05/23 20:12: POC Glucose 229 H 10/06/23 06:29: POC Glucose 141 H 10/06/23 07:01: WBC 7.2, RBC 3.01 L, Hgb 9.2 L, Hct 28.8 L, MCV 95.6, MCH 30.6, MCHC 32.1, RDW 13.9, Plt Count 323, MPV 7.9, Neut % (Auto) 57.4, Lymph % (Auto) 29.1, [place] % (Auto) 7.8, Eos % (Auto) 5.3, Baso % (Auto) 0.5, Neut # (Auto) 4.1, Lymph # (Auto) 2.1, [place] # (Auto) 0.6, Eos # (Auto) 0.4, Baso # (Auto) 0.0, Sodium 135 L, Potassium 3.9, Chloride 109 H, Carbon Dioxide 27, Anion Gap 2.9 L, BUN 12 D, Creatinine 0.90, Estimated Creat Clear 65, Estimated GFR 61, Est GFR ( Amer) 74, Glucose 143 H, Calcium 8.0 L 10/06/23 11:17: POC Glucose 168 H I & O for Last 24 hours: Intake & Output 10/04/23 10/05/23 10/06/23 10/07/23 11:59 11:59 11:59 11:59 Intake Total 2402 / 2402 840 / 840 2315.086 / 2315.086 Output Total 0 / 0 150 / 150 550 / 550 Balance 2402 / 2402 690 / 690 1765.086 / 1765.086 Weight 174 lb 4 oz 176 lb 4 oz 180 lb 12.8 oz Constitutional Constitutional: no acute distress *Routine Respiratory Exam Respiratory: Present CTA bilaterally *Routine Cardiovascular Exam Cardiovascular: Present RRR Progress Note: A&P Assessment and plan (1) Atrial fibrillation with rapid ventricular response: Status: Acute (2) Elevated troponin: Status: Acute (3) CHI (closed head injury): Status: Acute (4) Carotid stenosis, bilateral: Status: Acute (5) Obesity (BMI 30.0-34.9): Status: Chronic (6) Headache: Status: Acute (7) Hypertensive cardiovascular disease: Status: Chronic (8) Hyperlipidemia: Status: Acute (9) Diabetes mellitus: Status: Chronic (10) Nausea and vomiting: Status: Acute (11) KALIA (acute kidney injury): Status: Acute (12) Dehydration: Status: Acute (13) Closed fracture of left patella: Status: Acute (14) Vomiting: Status: Acute (15) Anemia: Status: Acute Assessment and Plan Assessment and Plan for All Diagnoses:: 1. New onset atrial fibrillation with rapid ventricular response -IV Cardizem unable to slow rate so IV amiodarone started with subsequent conversion to sinus rhythm. -Echo shows mild reduction in EF at 45-50% -TSH is normal -[id number] score of at least 5 (age, sex, hypertension, diabetes, PAD) -Start Lovenox 1 mg/kg and transition to oral anticoagulation at time of discharge. Patient may need surgery on her patella this admission 2. Elevated troponin, likely type II non-STEMI -Severe coronary calcifications noted on CTA of the chest -Marquise myoview abnormal. Proceed with [facility] -Add beta-radha therapy if blood pressure and heart rate tolerate. 3. Poorly controlled diabetes with hemoglobin A1c greater than 10 -Defer to PCP -Consider Farxiga or Jardiance due to cardiovascular benefit 4. Recent nausea and vomiting with KALIA, resolved 5. Hyperlipidemia -Resume statin therapy 6. 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 Recent fall with left patellar fracture and closed head injury -Needs surgery for patella fracture -CT of the head on 2 separate occasions negative for acute intracranial injury Echo shows reduced EF of about 45%. Marquise myoview abnormal with ischemia. Proceed with [facility] today. Increase metoprolol to 50 mg BID
--- NOTE | 2023-10-06 13:51 | IR_ITS ---
APPROVED REPORT Patient Location: Inpatient Plate Former: VANCE Wheeler RT (R) PROCEDURES Selective coronary angiogram Drug-eluting stent deployment to the ostial left main artery Drug-eluting stent deployment to the mid LAD extending into the proximal dominant circumflex artery Drug-eluting stent deployment to the ostial proximal LAD Intravascular ultrasound to the left main artery and LAD INDICATION Coronary artery disease, High risk abnormal Myoview, Patient is a poor candidate for bypass surgery, IVUS guidance for complex intervention Informed consent was obtained prior to the procedure. COMPLICATIONS None Estimated Blood Loss: Less than 10 mls TECHNIQUE One percent lidocaine used to anesthetize the right anterior aspect of the wrist. The right radial artery was accessed via the Seldinger technique. A 6 [place] sheath was placed in the right radial artery. 2.5 mg of Verapamil, 800 mcg of nitroglycerin, 1mg Lidocaine and 5000 U Heparin were given through the arterial sheath. The papa catheter was also used to perform selective coronary angiogram. At the end of the diagnostic angiogram therapeutic heparin was administered. There was severe dampening upon engagement of the left main artery. The catheter was placed into the ascending aorta and a broke scrub and discussed with 4 family members regarding either bypass surgery or drug-eluting stenting. There was unanimous consent from the for family members to proceed with drug-eluting stenting. Patient apparently had a complex and complicated carotid endarterectomy surgery and nearly according to the daughter and she felt bypass surgery would be more severe and detrimental to her health. I was accompanied by Venus Bender RN and it was unanimous they decided to proceed with stenting. I also discussed the case with Dr. Taylor who also agreed stenting would be reasonable and more ideal than bypass surgery. Further complicating issues patient had a fractured patella and would also be a poor rehab candidate given the broken lower extremity. Because of this the guide catheter was placed in the left coronary cusp and a wire was placed down the circumflex artery. A 4 mm x 8 mm [place] frontier stent was deployed at 20 nick in the ostium of the left main artery which reduced dampening and allowed further engagement. Following this a 5 mm x 30 mm [place] frontier stent was placed distal to the 4 mm stent yet still overlapping and extending into the proximal circumflex artery and then deployed at 20 nick. Excellent angiographic results were obtained. There is mild jailing of the LAD therefore an additional wire was placed into the LAD and a 2 mm x 12 mm balloon was used to open the struts going into the LAD. A 3 mm x 12 mm [place] frontier stent was then placed into the ostium of the LAD and deployed at 20 nick. There were excellent angiographic results. Intravascular ultrasound probe was advanced which demonstrated slight under sizing of the left main artery stent with excellent patency of the proximal LAD. A 5 mm x 8 mm noncompliant balloon was then deployed in the ostial segment of the left main artery at 20 nick to further post dilate. After achieving excellent angiographic results the apparatus was removed the sheath was removed and hemostasis was achieved using TR banding patient was transferred to the postop putting in stable condition ANGIOGRAPHIC RESULTS The left main artery Has an ostial 80% stenosis The left anterior descending artery Is patent throughout the proximal and mid segment with diffuse calcified 30% stenoses The circumflex artery Is a massively large dominant vessel and has proximal 30% stenoses The right coronary artery Small nondominant but patent The TINAJERO ventriculogram reveals Not performed The left ventricular end-diastolic pressure Not measured IMPRESSION Severe to critical ostial LAD disease Successful stenting of the ostial proximal mid and distal left main artery extending into the circumflex artery severe to critical disease reduced to 0% with 2 drug-eluting stents as described above Successful stenting into the proximal dominant circumflex artery Successful stenting of the ostial proximal LAD PLAN 1. Plavix 75 mg a day plus aspirin 81 mg a day 2. Postponement of surgery for a minimum of 30 days and possibly longer to be determined in follow-up 3. Risk factor modification 4. Better glycemic control is advised 5. LDL less than 55 to be achieved high intensity statin 6. Cardiac rehabilitation if able to tolerate given broken lower extremity 7. Avoidance of tobacco products Electronically signed by : Linwood Granger MD 10/06/2023 15:56:07
--- NOTE | 2023-10-06 14:13 | PC.NURSE ---
pt to equipment operator/laborer via stretcher with equipment operator/laborer RN's
[2023-10-06] MEDS: NITROGLYCERIN 800MCG/8ML SYR (CATH LAB) 800 MCG IA (14:21)
[2023-10-06] MEDS: VERAPAMIL 2.5MG/ML 2ML VIAL 2.5 MG IV (14:21)
[2023-10-06] MEDS: diphenhydrAMINE 50MG/ML VIAL 50 MG IV (14:21)
[2023-10-06] MEDS: HEPARIN 1,000 UNITS/500ML NS (CATH LAB) 3000 UNIT IV (14:22)
[2023-10-06] MEDS: 0.9 % SODIUM CHLORIDE 500 ML 25 ML IV (14:22)
[2023-10-06] MEDS: LIDOCAINE 1% 10ML MDV 20 ML IJ (14:22)
[2023-10-06] MEDS: HEPARIN 1,000 UNITS/ML 10ML VIAL (CATH LAB) 10000 UNIT IV (15:15)
[2023-10-06] MEDS: MIDAZOLAM HCL 1MG/1ML 5ML VIAL 1 MG IV (15:50)
[2023-10-06] MEDS: FENTANYL 100MCG/2ML VIAL 50 MCG IV (15:51)
[2023-10-06] MEDS: PROMETHAZINE HCL 25MG/ML 1ML VIAL 12.5 MG IV (15:56)
[2023-10-06] MEDS: IOPAMIDOL-370 (76%);100ML BOTTLE 180 ML IV (15:56)
[2023-10-06 15:57] LABS: CATHL Activated Clotting Time > 400 SEC (74-125)
--- NOTE | 2023-10-06 16:10 | PC.NURSE ---
report taken from Venus RN in metallurgical lab technician, went in radially, pt has radial band in place on right wrist, pt had 3 stents placed to Left main artery, pt had 7mg versed, 150mcg fentanyl, and 12.5mg phenergan during procedure, HR 80's, NSR on monitor, pt on 6L simple face mask, pt resting comfortably and will be back up to room shortly
--- NOTE | 2023-10-06 16:15 | PC.NURSE ---
pt back to 217 from mobile home laborer, pt resting well, pt has radial band on right wrist, RN Venus stated to watch the right arm closely because they had to apply extra pressure in mobile home laborer due to mild swelling after the procedure, hooked MIVF back to 18G left bicep, family at bedside, call light within reach
[2023-10-06 17:12] LABS: POC Glucose,Bedside 158 (70-110)
--- NOTE | 2023-10-06 17:50 | PC.NURSE ---
attempted to take air out of radial band, but sanguineous drainage noted so reinflated band
[2023-10-06] MEDS: ATORVASTATIN 40MG TABLET 80 MG PO (21:05)
[2023-10-06] MEDS: METOPROLOL TARTRATE 50MG TABLET 50 MG PO (21:05)
[2023-10-06 21:30] LABS: POC Glucose,Bedside 142 (70-110)
[2023-10-07] VITALS (11 sets, daily range): BP systolic 107–134; BP diastolic 50–70; PULSE 66–126; RESP 16–22; TEMP 37–37.6; O2SAT 89–100; BMI 32.0
[2023-10-07] MEDS: SENNOSIDES 8.6MG/DOCUSATE 50MG TABLET 1 TAB PO ×2 (01:15→20:34)
[2023-10-07] MEDS: MILK OF MAGNESIA 30ML UDC 30 ML PO (01:15)
[2023-10-07] MEDS: OXYCODONE 5MG IMMEDIATE RELEASE TABLET 5 MG PO ×3 (02:22→11:47)
[2023-10-07] MEDS: 0.9 % SODIUM CHLORIDE 1000ML 1,000 ML 75 ML IV ×2 (05:27→19:05)
--- NOTE | 2023-10-07 06:20 | PC.NURSE ---
Pt has a/o x3, unaware of time of day asking multiple times during shift. Pt has ambulated to BSC multiple times during shift with 2x assist to void. Pt had one episode of incontinence of urine. No BM this shift, pt states she has not had a BM in 11 days. Bowel sounds active x4. Pt c/o pain in left knee 1x, medicated per MAR, pt states relief. Pt requiring 2 L nc, tolerating well with sats in low 90s. Telfa and tegaderm to right radial with scant amount of blood noted. BBB/NSR on tele. Pt requiring continuous reminders not to over-extend or put weight on right wrist. Daughter at bedside. Call light within reach. Bed alarm on for pt safety.
[2023-10-07 06:51] LABS: Chloride 109 mmol/L (98-107); Sodium 134 mmol/L (136-145)
[2023-10-07 06:53] LABS: Basophils % 0.2 % (0.1-2.0); Eosinophils # 0.4 K/mm3 (0.0-0.4); Eosinophils % 3.7 % (0.1-12.0); Hematocrit 27.3 % (37.0-47.0); Hemoglobin 8.7 g/dL (12.2-16.2); Lymphocytes # 1.8 K/mm3 (0.7-4.5); Lymphocytes % 18.3 % (10-50); Mean Corpuscular HGB Conc 31.7 g/dL (31.8-35.4); Mean Corpuscular Hemoglobin 30.4 pg (27.0-31.2); Mean Corpuscular Volume 95.8 fl (81-99); Mean Platelet Volume 9.1 fl (7.4-10.4); Monocytes # 0.8 K/mm3 (0.1-1.0); Monocytes % 8.5 % (1.7-9.3); Neutrophils # 6.8 K/mm3 (1.8-7.8); Neutrophils % 69.2 % (37.0-80.0); Platelet Count 321 K/mm3 (142-424); Red Blood Count 2.85 M/mm3 (4.20-5.40); Red Cell Distribution Width 14.1 % (11.5-17.5); White Blood Count 9.8 K/mm3 (4.8-10.8)
[2023-10-07] MEDS: humaLOG 100 UNITS/ML 3ML VIAL (SSI) SQ ×2 (06:53→11:47)
[2023-10-07 06:54] LABS: Blood Urea Nitrogen 9 mg/dl (7-17); Creatinine Clearance Estimated 64 mL/min (50-200); Estimated Glomerular Filt Rate 61 ml/min (>60); GFR (African American) 74 ML/MIN (>60); Potassium 3.9 mmoL/L (3.5-5.1)
[2023-10-07 06:55] LABS: Anion Gap 5.9 mEq/L (5-15); Calcium 7.8 mg/dl (8.4-10.2); Carbon Dioxide 23 mmol/L (22.0-30.0); Glucose 181 mg/dl (74-100)
[2023-10-07 07:18] LABS: POC Glucose,Bedside 193 (70-110)
[2023-10-07] MEDS: METFORMIN 500MG TABLET 1000 MG PO ×2 (08:12→18:25)
[2023-10-07] MEDS: ASPIRIN EC 81MG TABLET 81 MG PO (08:12)
[2023-10-07] MEDS: FAMOTIDINE 20MG TABLET 20 MG PO ×2 (08:12→20:34)
[2023-10-07] MEDS: METOPROLOL TARTRATE 50MG TABLET 50 MG PO ×4 (08:12→20:35)
[2023-10-07] MEDS: CLOPIDOGREL 75MG TAB 75 MG PO (08:12)
[2023-10-07] MEDS: LISINOPRIL 10MG TABLET 10 MG PO (08:13)
[2023-10-07] MEDS: AMIODARONE 200MG TABLET 400 MG PO ×2 (08:13→20:32)
[2023-10-07] MEDS: ENOXAPARIN 80MG/0.8ML SYRINGE 80 MG SQ ×2 (08:13→20:49)
--- NOTE | 2023-10-07 08:15 | P.PN_ITS ---
Subjective *Date: 10/07/23 *Time: 09:08 Interval history: Patient is feeling better this am. Denies any CP or SOA. Has some pain at the cath site but no bleeding. Was able to eat some breakfast this am. Medical Exam Vital signs and Labs for Last 24 Hours: Vital Signs Temp Pulse Pulse Resp BP Pulse Ox O2 Del Method 10/07/23 07:00 Nasal Cannula 10/07/23 06:00 79 21 134/70 91 L Nasal Cannula 10/07/23 05:00 Nasal Cannula 10/07/23 04:00 92 L Nasal Cannula 10/07/23 04:00 98.6 F 83 19 121/60 93 L Nasal Cannula 10/07/23 04:00 84 10/07/23 02:00 75 21 117/50 L 95 Nasal Cannula 10/07/23 03:00 Nasal Cannula 10/07/23 01:00 Nasal Cannula 10/07/23 00:00 80 10/07/23 00:00 99.3 F 84 22 107/50 L 90 L Nasal Cannula 10/06/23 23:00 Nasal Cannula 10/06/23 23:00 79 24 123/48 L 94 L Nasal Cannula 10/06/23 20:00 85 10/06/23 22:00 79 17 127/54 L 92 L Nasal Cannula 10/06/23 21:00 81 23 125/69 96 Nasal Cannula 10/06/23 20:00 99.2 F 89 20 141/71 H 95 Nasal Cannula 10/06/23 20:56 Nasal Cannula 10/06/23 20:00 95 Nasal Cannula 10/06/23 19:00 89 24 128/61 92 L Nasal Cannula 10/06/23 18:36 Nasal Cannula 10/06/23 18:30 91 H 25 H 130/66 90 L Nasal Cannula 10/06/23 18:00 88 23 135/68 91 L Nasal Cannula 10/06/23 17:30 90 13 153/81 H 90 L Nasal Cannula 10/06/23 17:00 Nasal Cannula 10/06/23 17:00 93 H 22 123/75 95 Nasal Cannula 10/06/23 16:45 69 23 145/71 H 97 Simple Mask 10/06/23 16:30 82 19 141/66 H 97 Simple Mask 10/06/23 16:15 94 L Simple Mask 10/06/23 16:15 89 19 145/64 H 92 L Simple Mask 10/06/23 16:05 82 20 128/67 96 Simple Mask 10/06/23 16:02 87 20 126/66 99 Room Air 10/06/23 16:01 84 20 146/82 H 98 Simple Mask 10/06/23 15:55 86 20 145/82 H 98 Room Air 10/06/23 15:53 88 20 144/80 H 96 Simple Mask 10/06/23 12:00 75 10/06/23 13:08 98.4 F 10/06/23 12:55 Nasal Cannula 10/06/23 11:05 Nasal Cannula 10/06/23 12:00 79 12 120/66 96 Nasal Cannula O2 Flow Rate 10/07/23 07:00 2 10/07/23 06:00 10/07/23 05:00 2 10/07/23 04:00 2 10/07/23 04:00 2 10/07/23 04:00 10/07/23 02:00 2 10/07/23 03:00 2 10/07/23 01:00 2 10/07/23 00:00 10/07/23 00:00 2 10/06/23 23:00 2 10/06/23 23:00 2 10/06/23 20:00 10/06/23 22:00 2 10/06/23 21:00 2 10/06/23 20:00 2 10/06/23 20:56 2 10/06/23 20:00 2 10/06/23 19:00 2 10/06/23 18:36 2 10/06/23 18:30 2 10/06/23 18:00 2 10/06/23 17:30 2 10/06/23 17:00 2 10/06/23 17:00 2 10/06/23 16:45 6 10/06/23 16:30 6 10/06/23 16:15 6 10/06/23 16:15 6 10/06/23 16:05 6 10/06/23 16:02 10/06/23 16:01 6 10/06/23 15:55 10/06/23 15:53 6 10/06/23 12:00 10/06/23 13:08 10/06/23 12:55 2 10/06/23 11:05 2 10/06/23 12:00 2 Intake and Output 10/06/23 10/07/23 10/07/23 19:59 03:59 11:59 Intake Total 170 / 990 820 / 990 Output Total 0 / 400 400 / 400 Balance 170 / 590 -400 / 590 820 / 590 Intake: Intake, Oral Amount 170 / 170 Intake, Total IV Amount 820 / 820 0.9 % Sodium Chloride 1000ML 1, 820 / 820 000 ml @ 75 mls/hr IV .[id number] [facility] Rx#:[id number] Output: Output, Urine Amount 0 / 400 400 / 400 Other: Number of Unmeasured Voids 1 1 Weight 180 lb 14.228 oz Patient Weight 10/07/23 11:59 Weight 180 lb 14.228 oz Laboratory Results - last 24 hr 10/06/23 11:17: POC Glucose 168 H 10/06/23 16:20: Activated Clotting Time > 400 H* 10/06/23 17:03: POC Glucose 158 H 10/06/23 21:08: POC Glucose 142 H 10/07/23 05:24: WBC 9.8 D, RBC 2.85 L, Hgb 8.7 L, Hct 27.3 L, MCV 95.8, MCH 30.4, MCHC 31.7 L, RDW 14.1, Plt Count 321, MPV 9.1, Neut % (Auto) 69.2, Lymph % (Auto) 18.3, [place] % (Auto) 8.5, Eos % (Auto) 3.7, Baso % (Auto) 0.2, Neut # (Auto) 6.8, Lymph # (Auto) 1.8, [place] # (Auto) 0.8, Eos # (Auto) 0.4, Baso # (Auto) 0.0, Sodium 134 L, Potassium 3.9, Chloride 109 H, Carbon Dioxide 23, Anion Gap 5.9, BUN 9, Creatinine 0.90, Estimated Creat Clear 64, Estimated GFR 61, Est GFR ( Amer) 74, Glucose 181 H D, Calcium 7.8 L 10/07/23 06:49: POC Glucose 193 H I & O for Labs for Last 24 Hours: Intake & Output 10/04/23 10/05/23 10/06/23 10/07/23 11:59 11:59 11:59 11:59 Intake Total 2402 / 2402 840 / 840 2315.086 / 2315.086 990 / 990 Output Total 0 / 0 150 / 150 550 / 550 400 / 400 Balance 2402 / 2402 690 / 690 1765.086 / 1765.086 590 / 590 Weight 174 lb 4 oz 176 lb 4 oz 180 lb 12.8 oz 180 lb 14.228 oz Constitutional: Present no acute distress Respiratory: Present CTA bilaterally Cardiac: Present Regular Rate Comment:: frequent ectopics GI: Present soft and normal bowel sounds; Absent distention or tenderness Extremities: Present joint swelling (Left knee much improved); Absent edema (Right leg without edema.) Skin: Present intact Neuro: Present alert and oriented x 3 Assessment and Plan *Assessment and plan (1) Atrial fibrillation with rapid ventricular response: Status: Acute Category: Medical Code(s): I48.91 - Unspecified atrial fibrillation (2) Elevated troponin: Status: Acute Category: Medical Code(s): R79.89 - Other specified abnormal findings of blood chemistry (3) CHI (closed head injury): Status: Acute Qualifiers: Encounter type: subsequent encounter Qualified Code(s): S09.90XD - Unspecified injury of head, subsequent encounter Category: Medical Code(s): S09.90XA - Unspecified injury of head, initial encounter (4) Carotid stenosis, bilateral: Status: Acute Category: Medical Code(s): I65.23 - Occlusion and stenosis of bilateral carotid arteries (5) Obesity (BMI 30.0-34.9): Status: Chronic Category: Medical Code(s): E66.9 - Obesity, unspecified (6) Headache: Status: Acute Qualifiers: Headache chronicity pattern: unspecified pattern Headache type: unspecified Intractability: not intractable Qualified Code(s): R51.9 - Headache, unspecified Category: Medical Code(s): R51.9 - Headache, unspecified (7) Hypertensive cardiovascular disease: Status: Chronic Qualifiers: Heart failure presence: unspecified whether heart failure present Qualified Code(s): I11.9 - Hypertensive heart disease without heart failure Category: Medical Code(s): I11.9 - Hypertensive heart disease without heart failure (8) Hyperlipidemia: Status: Acute Qualifiers: Hyperlipidemia type: mixed hyperlipidemia Qualified Code(s): E78.2 - Mixed hyperlipidemia Category: Medical Code(s): E78.5 - Hyperlipidemia, unspecified (9) Diabetes mellitus: Status: Chronic Qualifiers: Diabetes mellitus complication status: with other specified complication Diabetes mellitus solutions market consultant insulin use: unspecified solutions market consultant insulin use status Diabetes mellitus type: type 2 Qualified Code(s): E11.69 - Type 2 diabetes mellitus with other specified complication Category: Medical Code(s): E11.9 - Type 2 diabetes mellitus without complications (10) Nausea and vomiting: Status: Acute Category: Medical Code(s): R11.2 - Nausea with vomiting, unspecified (11) KALIA (acute kidney injury): Status: Acute Category: Medical Code(s): N17.9 - Acute kidney failure, unspecified (12) Dehydration: Status: Acute Category: Medical Code(s): E86.0 - Dehydration (13) Closed fracture of left patella: Status: Acute Category: Medical Code(s): S82.002A - Unspecified fracture of left patella, initial encounter for closed fracture (14) Vomiting: Status: Acute Category: Medical Code(s): R11.10 - Vomiting, unspecified (15) Anemia: Status: Acute Category: Medical Code(s): D64.9 - Anemia, unspecified (16) Status post coronary artery stent placement: Status: Acute Category: Surgical Code(s): Z95.5 - Presence of coronary angioplasty implant and graft (17) CAD (coronary artery disease): Status: Acute Category: Medical Code(s): I25.10 - Atherosclerotic heart disease of [place] coronary artery without angina pectoris Plan Patient received stents yesterday. Still with some ectopics today. Cardiology to follow. Knee pain is controlled. Dr. Garcia entry - Saw patient, agree with above note.
--- NOTE | 2023-10-07 08:31 | PC.NURSE ---
MUNA Jiang rounded at bedside, intermittent irregular rhythms noted on tele monitor, PA to adjust medications, MUNA Jiang assessed pt's arm as pt was complaining of pain at site of cath yesterday and extremities swollen, morning meds and lovenox given, pt resting in bed, family at bedside, call light within reach
--- NOTE | 2023-10-07 09:18 | EXP.CARD.PN ---
Subjective Subjective Date: 10/07/23 Time: 09:18 Principal diagnosis: CAD Interval history: 73-year-old white female in bed in no acute distress. Patient received 3 stents yesterday to left main, LAD and circumflex She does have some right forearm and wrist discomfort. Pulses appreciated Exam Data for Last 24 hours Vital signs and Labs for Last 24 Hours: Temp Pulse Resp BP Pulse Ox O2 Del Method O2 Flow Rate 98.6 F 66 16 131/56 L 89 L Nasal Cannula 2 10/07/23 04:00 10/07/23 08:30 10/07/23 08:30 10/07/23 08:30 10/07/23 08:30 10/07/23 08:41 10/07/23 08:41 Laboratory Results - last 24 hr 10/06/23 11:17: POC Glucose 168 H 10/06/23 16:20: Activated Clotting Time > 400 H* 10/06/23 17:03: POC Glucose 158 H 10/06/23 21:08: POC Glucose 142 H 10/07/23 05:24: WBC 9.8 D, RBC 2.85 L, Hgb 8.7 L, Hct 27.3 L, MCV 95.8, MCH 30.4, MCHC 31.7 L, RDW 14.1, Plt Count 321, MPV 9.1, Neut % (Auto) 69.2, Lymph % (Auto) 18.3, [place]osh % (Auto) 8.5, Eos % (Auto) 3.7, Baso % (Auto) 0.2, Neut # (Auto) 6.8, Lymph # (Auto) 1.8, [place]osh # (Auto) 0.8, Eos # (Auto) 0.4, Baso # (Auto) 0.0, Sodium 134 L, Potassium 3.9, Chloride 109 H, Carbon Dioxide 23, Anion Gap 5.9, BUN 9, Creatinine 0.90, Estimated Creat Clear 64, Estimated GFR 61, Est GFR ( Amer) 74, Glucose 181 H D, Calcium 7.8 L 10/07/23 06:49: POC Glucose 193 H I & O for Last 24 hours: Intake & Output 10/04/23 10/05/23 10/06/23 10/07/23 11:59 11:59 11:59 11:59 Intake Total 2402 / 2402 840 / 840 2315.086 / 2315.086 990 / 990 Output Total 0 / 0 150 / 150 550 / 550 400 / 400 Balance 2402 / 2402 690 / 690 1765.086 / 1765.086 590 / 590 Weight 174 lb 4 oz 176 lb 4 oz 180 lb 12.8 oz 180 lb 14.228 oz Constitutional Constitutional: no acute distress *Routine Respiratory Exam Respiratory: Present CTA bilaterally *Routine Cardiovascular Exam Cardiovascular: Present irregular rhythm Progress Note: A&P Assessment and plan (1) Atrial fibrillation with rapid ventricular response: Status: Acute (2) Elevated troponin: Status: Acute (3) CHI (closed head injury): Status: Acute (4) Carotid stenosis, bilateral: Status: Acute (5) Obesity (BMI 30.0-34.9): Status: Chronic (6) Headache: Status: Acute (7) Hypertensive cardiovascular disease: Status: Chronic (8) Hyperlipidemia: Status: Acute (9) Diabetes mellitus: Status: Chronic (10) Nausea and vomiting: Status: Acute (11) KALIA (acute kidney injury): Status: Acute (12) Dehydration: Status: Acute (13) Closed fracture of left patella: Status: Acute (14) Vomiting: Status: Acute (15) Anemia: Status: Acute (16) Status post coronary artery stent placement: Status: Acute (17) CAD (coronary artery disease): Status: Acute Assessment and Plan Assessment and Plan for All Diagnoses:: 1. New onset atrial fibrillation with rapid ventricular response -converted to NSR with amiodarone -Echo shows EF 55% with systolic dysfunction -TSH is normal -[id number] score of at least 5 (age, sex, hypertension, diabetes, PAD) -Start Lovenox 1 mg/kg and transition to oral anticoagulation at time of discharge. Patient may need surgery on her patella this admission 2. Type II non-STEMI -Severe coronary calcifications noted on CTA of the chest -Marquise myoview abnormal. -LHC with placement of 3 TORI to Left main into LAD and Cx -DAPT with ASA/plavix 3. Poorly controlled diabetes with hemoglobin A1c greater than 10 -Defer to PCP -Add Jardiance due to cardiovascular benefit 4. Recent nausea and vomiting with KALIA, resolved 5. Hyperlipidemia -Resume statin therapy 6. 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 Recent fall with left patellar fracture and closed head injury -Needs surgery for patella fracture -CT of the head on 2 separate occasions negative for acute intracranial injury 8. Anemia -Hgb drifting down to 8.7, which could be partly dilutional 9. 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 Small pericardial effusion with RV invagination without clear evidence of tamponade on Echo, 10/05/2023 -repeat limited echo today to follow up on effusion 11. HFpEF with 8 liters of fluid taken in than put out since admission -one time dose of lasix -start spironolactone 25 mg daily OK to proceed with patellar surgery but cannot stop aspirin/plavix for at least 30 days Limited echo to assess pericardial effusion Increase metoprolol to 50 mg QID for better HR control Add jardiance for CV benefit in diabetic Add spironolactone and one time dose of lasix due to suspected HFpEF with cumulative fluid status of (+) 8 liters since admission.
--- NOTE | 2023-10-07 09:49 | CA_ITS ---
APPROVED REPORT EXAM: Limited 2D Echocardiogram Garage Helper: Lorena Alfaro RCS, RVS Ht: 5 ft 2 in Wt: 180lbs BSA: 1.83 BP: 107/60 mmHg Indications: F/U Pericardial effusion, CAD, AFIB 2D Dimensions Left Atrium 4.35 cm LA Volume 111.00 mL LA Volume Index 60.600895 mL/m2 (M/F) 16-34 EF AP4 45.40 % GL Strain -19.4 % M-Mode Dimensions Ao Diam 2.86 cm (2.0-3.7) Other Information Study Quality: Fair Conclusion This is a limited TTE to evaluate for pericardial effuion. Limited windows were obtained. There is a trivial, anterior pericardial effusion present. The largest pocket measures 0.2 cm in diastole. There are no echo indications of tamponade. Compared to prior recent study from , the pericardial effusion is improved. Electronically signed by : Arpita Person MD 10/09/2023 15:21:30
--- NOTE | 2023-10-07 10:50 | EXP.OP.NOTE ---
Date of procedure: 10/07/23 Pre-op Diagnosis:: Left knee medial lateral meniscus tears and osteoarthritis Post-op Diagnosis:: Left knee tear posterior horn medial meniscus Left knee complex tear posterior horn body anterior horn lateral meniscus Grade IV chondromalacia lateral tibial plateau Intra-articular loose bodies intercondylar notch and lateral joint line Procedure performed:: Left knee arthroscopy with partial medial lateral meniscectomy Left knee arthroscopy with removal of loose bodies Surgeon:: Александр Finch DO FIRE PREVENTION SPECIALIST:: Rajan Villasenor Anesthesia: GETA Estimated blood loss (mL): 0 Operative findings:: Large macerated tear lateral meniscus with grade IV chondromalacia lateral tibial plateau intra-articular loose bodies tear posterior horn medial meniscus Operative note:: Patient is identified preoperatively. Left knee marked with yes my initials. Transported operative suite placed upon operating bed. General anesthesia ministered airway secured. Left lower extremity was then prepped and draped normal sterile fashion. Once prepped and draped final operative timeout performed to identify proper patient procedure and extremity. Everyone involved the case agreed. Is no counter indication to beginning. Did receive preoperative antibiotics. Marking pen was used to sebastien the bony landmarks of the knee and standard portal sites. Esmarch was used to exsanguinate the extremity pneumatic tourniquet inflated to 300 mmHg. Skin knife was used incise standard anterior lateral portal and blunt trocar was placed in the patellofemoral joint exchange with a camera. I swept directly into the medial joint line where the anterior medial portal was made with the help of an 18-gauge spinal needle. This was exchanged with a probe there was tearing of the posterior horn of the medial meniscus. Using a combination of straight biter sucker shaver partial medial meniscectomy was performed back to stable rim. Swept into the intercondylar notch within the intercondylar notch was intra-articular loose bodies present these were removed with the sucker shaver. ACL was intact and frayed anteriorly. Scope into the lateral joint line within the lateral joint line there is a very large complex tear of the lateral meniscus involving the anterior horn posterior horn and body There is also chondromalacia of full-thickness of the lateral tibial plateau and intra-articular loose body. Loose bodies removed with a sucker shaver. Using combination of straight biter sucker shaver and the electrocautery partial lateral meniscectomy was performed back to stable rim this required removal of most of the lateral meniscus secondary to the complex nature of the tear. Sweat back into the medial lateral gutters no further pathology seen loose body seen back in the patellofemoral joint patella did track midline within the trochlea there were moderate degenerative changes in the patellofemoral joint. Condition: stable Disposition: PACU Complications:: None apparent
[2023-10-07 11:59] LABS: POC Glucose,Bedside 159 (70-110)
--- NOTE | 2023-10-07 14:13 | P.CONS_ITS ---
History of Present Illness *Admission Date: 10/01/23 *Reason for visit:: Left patella fracture displaced *History of present illness: 73-year-old female who unfortunately fell suffering a displaced patella fracture she was scheduled to see me in the outpatient setting in regards to operative intervention for her displaced patella fracture however in the interim she was admitted to the hospital for dehydration and subsequently went into atrial fibrillation with rapid ventricular response and had suspicious findings on stress test. This led to heart cath and stenting of critical vessels. Now she is on Plavix and must remain continuously on Plavix over the next 30 days. Although initial plan was outpatient scheduling for open reduction internal fixation of patella now we are arranging treatment plans around Plavix and her current need for senior care rehab. [facility] Disclaimer: The information contained in this section may have been updated after the patient was seen, as this information can be updated by other users. Medical History (Updated 10/07/23 @ 14:16 by Александр Finch DO) Cerebrovascular accident Diabetes mellitus History of TIA (transient ischemic attack) Hyperlipidemia Hypertensive cardiovascular disease Vocal cord paralysis Surgical History (Updated 10/07/23 @ 08:18 by MUNA Muro) History of carotid endarterectomy History of colonoscopy Family History Other Coronary artery disease Diabetes Heart attack Hyperlipidemia Hypertension Stroke Social History (Updated 10/01/23 @ 13:17 by Yazmin Medrano RN) Smoking Status: Never smoker alcohol intake: never substance use type: denies use current occupational status: retired Travel in the last 8 weeks: None household members: family housing: house current occupational exposures/hazards: No caffeine: Yes Review of Systems Constitutional Constitutional: Reports headache(s) (since recent fall with head trauma ) ENT Ears, Nose, Mouth, and Throat: Reports headache(s) (since recent fall with head trauma ) *Neurologic Neurologic: Reports headache(s) (since recent fall with head trauma ) Meds Home Medications and Allergies Home Medications Medication Instructions Recorded Confirmed Type metformin 1,000 mg tablet 1,000 mg PO BID Diabetes 01/02/21 10/01/23 History atorvastatin 80 mg tablet 80 mg PO DAILY Cholesterol 02/03/22 10/01/23 History blood sugar diagnostic (Accu-Chek #10 ea 02/03/22 10/01/23 History Amanda Plus test strips) clopidogrel 75 mg tablet 75 mg PO DAILY Blood Thinner 02/03/22 10/01/23 History lancets (Accu-Chek Softclix #100 ea 02/03/22 10/01/23 History Lancets) lisinopril 10 mg tablet 10 mg PO DAILY bp 02/03/22 10/01/23 History pen needle, diabetic 31 gauge x #1,200 ea 02/03/22 10/01/23 History 5/16 (Droplet Pen Needle) aspirin 81 mg capsule 81 mg PO DAILY Blood Thinner 06/29/23 10/01/23 History ergocalciferol (vitamin D2) 10 mcg 10 mcg PO BID Supplement 06/29/23 10/01/23 History (400 unit) tablet insulin aspart U-100 100 unit/mL See Rx Instructions .Route 06/29/23 10/01/23 History (3 mL) subcutaneous pen (Novolog .COMPLEX Diabetes FlexPen U-100 Insulin aspart) vitamin B12 500 mcg-folic acid 400 1 tab PO DAILY Supplement 06/29/23 10/01/23 History mcg tablet insulin glargine 100 unit/mL (3 40 unit SQ HS 10/01/23 10/01/23 History mL) subcutaneous pen (Lantus Solostar U-100 Insulin) ondansetron HCl 4 mg tablet 4 mg PO Q6 10/01/23 10/01/23 History tramadol 50 mg tablet 50 mg PO Q6HP PRN Moderate Pain 10/01/23 10/02/23 History (Scale Score 5-6) New Prescriptions to Start Prescriptions: Allergies Allergy/AdvReac Type Severity Reaction Status Date / Time No Known Allergies Allergy Verified 09/25/23 17:56 Ortho Exam (Inpt) Vital signs and Labs for Last 24 Hours: Temp Pulse Resp BP Pulse Ox O2 Del Method O2 Flow Rate 99.7 F H 76 18 118/61 96 Nasal Cannula 2 10/07/23 12:00 10/07/23 12:00 10/07/23 12:00 10/07/23 12:00 10/07/23 12:00 10/07/23 13:00 10/07/23 13:00 Laboratory Results - last 24 hr 10/06/23 16:20: Activated Clotting Time > 400 H* 10/06/23 17:03: POC Glucose 158 H 10/06/23 21:08: POC Glucose 142 H 10/07/23 05:24: WBC 9.8 D, RBC 2.85 L, Hgb 8.7 L, Hct 27.3 L, MCV 95.8, MCH 30.4, MCHC 31.7 L, RDW 14.1, Plt Count 321, MPV 9.1, Neut % (Auto) 69.2, Lymph % (Auto) 18.3, [place] % (Auto) 8.5, Eos % (Auto) 3.7, Baso % (Auto) 0.2, Neut # (Auto) 6.8, Lymph # (Auto) 1.8, [place] # (Auto) 0.8, Eos # (Auto) 0.4, Baso # (Auto) 0.0, Sodium 134 L, Potassium 3.9, Chloride 109 H, Carbon Dioxide 23, Anion Gap 5.9, BUN 9, Creatinine 0.90, Estimated Creat Clear 64, Estimated GFR 61, Est GFR ( Amer) 74, Glucose 181 H D, Calcium 7.8 L 10/07/23 06:49: POC Glucose 193 H 10/07/23 11:40: POC Glucose 159 H I & O for Labs for Last 24 Hours: Intake & Output 10/04/23 10/05/23 10/06/23 10/07/23 23:59 23:59 23:59 23:59 Intake Total 2352 / 2352 1333.086 / 0299.315 2598 / 1152 820 / 820 Output Total 150 / 150 400 / 550 450 / 550 100 / 100 Balance 2202 / 2202 933.086 / 783.086 702 / 602 720 / 720 Weight 174 lb 4 oz 176 lb 4 oz 180 lb 12.8 oz 180 lb 14.228 oz Comment:: Left knee: Moderate-sized hemarthrosis knee in a knee immobilizer with 10 degrees of flexion at the knee. No open wounds. No evidence of DVT grossly neurovascular intact X-rays left knee show displaced mid pole patella fracture Results Labs 10/07/23 05:24 10/07/23 05:24 Labs: Abnormal lab results 10/06/23 10/06/23 10/06/23 Range/Units 16:20 17:03 21:08 RBC (4.20-5.40) M/mm3 Hgb (12.2-16.2) g/dL Hct (37.0-47.0) % MCHC (31.8-35.4) g/dL Activated Clotting Time > 400 H* (74-125) SEC Sodium (136-145) mmol/L Chloride (98-107) mmol/L Glucose (74-100) mg/dl POC Glucose 158 H 142 H (70-110) Calcium (8.4-10.2) mg/dl 10/07/23 10/07/23 10/07/23 Range/Units 05:24 06:49 11:40 RBC 2.85 L (4.20-5.40) M/mm3 Hgb 8.7 L (12.2-16.2) g/dL Hct 27.3 L (37.0-47.0) % MCHC 31.7 L (31.8-35.4) g/dL Activated Clotting Time (74-125) SEC Sodium 134 L (136-145) mmol/L Chloride 109 H (98-107) mmol/L Glucose 181 H D (74-100) mg/dl POC Glucose 193 H 159 H (70-110) Calcium 7.8 L (8.4-10.2) mg/dl H & H 10/01/23 10/02/23 10/02/23 Range/Units 12:51 05:40 19:01 Hgb 11.1 L 10.1 L 13.1 D (12.2-16.2) g/dL Hct 34.6 L 28.0 L 41.9 (37.0-47.0) % 10/03/23 10/04/23 10/05/23 Range/Units 07:08 22:05 05:26 Hgb 11.1 L D 10.5 L 10.2 L (12.2-16.2) g/dL Hct 33.4 L 31.8 L 30.9 L (37.0-47.0) % 10/06/23 10/07/23 Range/Units 07:01 05:24 Hgb 9.2 L 8.7 L (12.2-16.2) g/dL Hct 28.8 L 27.3 L (37.0-47.0) % All other labs normal. Assessment and Plan *Assessment and plan (1) Closed fracture of left patella: Status: Acute Qualifiers: Encounter type: initial encounter Fracture morphology: transverse Fracture alignment: displaced Qualified Code(s): S82.032A - Displaced transverse fracture of left patella, initial encounter for closed fracture Category: Medical Code(s): S82.002A - Unspecified fracture of left patella, initial encounter for closed fracture Plan I met with the patient and her daughter and sister today and talked about treatment options. Also spoke with Dr. Granger in regards to the critical coronary artery disease and subsequent stenting. It is essential that she stays on Plavix over the next 30 days continuously without coming off. Currently not a good surgical candidate given those circumstances. She is anemic and requires his anticoagulation so she will return to the clinic for reevaluation and 25 days. At that time we will repeat an x-ray and see what treatment options we have also directly correlate with Dr. Granger in regards to timing of coming off Plavix for 5 days. Currently she anticipates going to senior care rehab which is okay in regards to her left knee she can keep the knee immobilizer on she is able to weight-bear as tolerated with the knee brace straight however weightbearing on the left side will be difficult secondary to pain. Continue to work on transfers and use wheelchair for mobilization.
[2023-10-07] MEDS: FUROSEMIDE 40 MG TABLET PO (14:28)
[2023-10-07] MEDS: SPIRONOLACTONE 25MG TABLET 25 MG PO (14:28)
[2023-10-07] MEDS: EMPAGLIFLOZIN 10MG TABLET 10 MG PO (14:28)
[2023-10-07 17:21] LABS: POC Glucose,Bedside 111 (70-110)
[2023-10-07] MEDS: ONDANSETRON 4MG/2ML VIAL 4 MG IV (17:28)
--- NOTE | 2023-10-07 18:14 | PC.NURSE ---
Addendum entered by Carroll Souza RN 10/07/23 18:38: fleet enema was NOT administered, patient stated that she wanted to try and eat a few bites of dinner before the enema.. Original Note: patient still unable to have a bowel movement during this shift, fleet enema and miralax administered per MD order.
[2023-10-07] MEDS: POLYETHYLENE GLYCOL 3350 17 GM PACKET PO (18:25)
[2023-10-07] MEDS: ATORVASTATIN 40MG TABLET 80 MG PO (20:33)
[2023-10-07] MEDS: PANTOPRAZOLE 40MG TABLET 40 MG PO (20:34)
[2023-10-07] MEDS: ACETAMINOPHEN 325MG TAB 650 MG PO (20:35)
[2023-10-07] MEDS: SODIUM PHOS/BIPHOSPHATE FLEET 133ML ENEMA 133 ML RC (20:49)
[2023-10-07 21:17] LABS: POC Glucose,Bedside 134 (70-110)
--- NOTE | 2023-10-07 22:05 | PC.NURSE ---
Pt called out stating she felt liker sugar was low (last FS 134). Sugar rechecked - 138. Pt states she feels like she is having hot flashes. VSS. Pt does not appear under distress. Snack offered, pt refused. Blankets were taken off of pt and fan provided for comfort. Pt states she is now feeling better and believes it is her nerves from learning medical tx plan today.
[2023-10-07 22:10] LABS: POC Glucose,Bedside 138 (70-110)
[2023-10-08] VITALS (8 sets, daily range): BP systolic 91–140; BP diastolic 48–70; PULSE 60–103; RESP 16–19; TEMP 36.4–37.1; O2SAT 91–96; BMI 32.4
[2023-10-08] MEDS: ACETAMINOPHEN 325MG TAB 650 MG PO (02:45)
[2023-10-08] MEDS: OXYCODONE 5MG IMMEDIATE RELEASE TABLET 5 MG PO ×3 (03:49→22:13)
[2023-10-08 06:24] LABS: POC Glucose,Bedside 140 (70-110)
--- NOTE | 2023-10-08 06:44 | PC.NURSE ---
PT A/OX4. PT WAS AGITATED AND TEARFUL AT BEGINNING OF SHIFT DUE TO CURRENT HEALTH AND TX PLAN. PT HAS VOICED C/O PAIN TO LEFT KNEE 2X DURING SHIFT. TYLENOL DID NOT GIVE PT RELIEF SO OXYCODONE WAS ADMINISTERED- PT STATES FAVORABLE RESULTS. PT CONTINUES TO REQUIRE 2 L NC, TOLERATING WELL WITH SAT MID 90S. PT SAT MID 80S ON RA. [place] [facility] [place]. PT HAD 1 BM DURING SHIFT. DAUGHTER IS AT BEDSIDE. CALL LIGHT WITHIN REACH.
[2023-10-08] MEDS: ONDANSETRON 4MG/2ML VIAL 4 MG IV (07:37)
--- NOTE | 2023-10-08 08:23 | EXP.ACUTE.PN ---
Subjective *Date: 10/08/23 *Time: 08:43 Interval history: Patient is not feeling well this am. She woke up nauseated and has had dry heaves all morning. She denies any pain other than in her knee. She did take a pain pill in the middle of the night. She just had zofran about 30 minutes ago. Medical Exam Vital signs and Labs for Last 24 Hours: Vital Signs Temp Pulse Pulse Pulse Resp BP Pulse Ox 10/08/23 04:00 97.9 F 74 18 134/51 L 91 L 10/08/23 06:29 10/08/23 04:00 65 10/08/23 05:00 10/08/23 03:00 10/08/23 01:00 10/08/23 00:00 60 10/07/23 20:00 74 10/08/23 00:00 97.6 F 103 H 19 106/56 L 95 10/07/23 20:00 98.8 F 68 16 113/70 100 10/07/23 23:00 10/07/23 21:00 10/07/23 20:00 10/07/23 18:43 10/07/23 16:00 80 10/07/23 17:00 10/07/23 16:00 75 125/67 91 L 10/07/23 15:00 10/07/23 13:00 10/07/23 12:00 80 10/07/23 12:00 99.7 F H 76 18 118/61 96 10/07/23 12:00 81 21 127/69 95 10/07/23 11:00 10/07/23 09:00 94 L 10/07/23 10:00 76 22 107/60 L 91 L 10/07/23 08:30 66 16 131/56 L 89 L 10/07/23 08:41 O2 Del Method O2 Flow Rate 10/08/23 04:00 Nasal Cannula 2 10/08/23 06:29 Nasal Cannula 2 10/08/23 04:00 10/08/23 05:00 Nasal Cannula 2 10/08/23 03:00 Nasal Cannula 2 10/08/23 01:00 Nasal Cannula 2 10/08/23 00:00 10/07/23 20:00 10/08/23 00:00 10/07/23 20:00 10/07/23 23:00 Nasal Cannula 2 10/07/23 21:00 Nasal Cannula 2 10/07/23 20:00 Nasal Cannula 10/07/23 18:43 Nasal Cannula 2 10/07/23 16:00 10/07/23 17:00 Nasal Cannula 2 10/07/23 16:00 Nasal Cannula 2 10/07/23 15:00 Nasal Cannula 2 10/07/23 13:00 Nasal Cannula 2 10/07/23 12:00 10/07/23 12:00 Nasal Cannula 10/07/23 12:00 Nasal Cannula 2 10/07/23 11:00 Nasal Cannula 2 10/07/23 09:00 Nasal Cannula 2 10/07/23 10:00 Nasal Cannula 2 10/07/23 08:30 Nasal Cannula 2 10/07/23 08:41 Nasal Cannula 2 Intake and Output 10/07/23 10/08/23 10/08/23 19:59 03:59 11:59 Intake Total 200 / 200 Output Total 600 / 900 300 / 900 Balance -400 / -700 -300 / -700 Intake: Intake, Oral Amount 200 / 200 Output: Output, Urine Amount 600 / 900 300 / 900 Other: Number of Unmeasured Voids 1 Number of Bowel Movements 1 Weight 183 lb 0.444 oz Patient Weight 10/08/23 11:59 Weight 183 lb 0.444 oz Laboratory Results - last 24 hr 10/07/23 11:40: POC Glucose 159 H 10/07/23 17:06: POC Glucose 111 H 10/07/23 20:50: POC Glucose 134 H 10/07/23 22:02: POC Glucose 138 H 10/08/23 06:17: POC Glucose 140 H I & O for Labs for Last 24 Hours: Intake & Output 10/05/23 10/06/23 10/07/23 10/08/23 11:59 11:59 11:59 11:59 Intake Total 840 / 840 2315.086 / 2315.086 1090 / 1090 200 / 200 Output Total 150 / 150 550 / 550 400 / 400 900 / 900 Balance 690 / 690 1765.086 / 1765.086 690 / 690 -700 / -700 Weight 176 lb 4 oz 180 lb 12.8 oz 180 lb 14.228 oz 183 lb 0.444 oz Microbiology Reports for the Last 24 Hours: Microbiology 10/01/23 13:01 Blood Blood Culture - Final 10/01/23 13:07 Blood Blood Culture - Final Comment:: Does not appear to feel well this am ENT: Present mucous membranes dry Respiratory: Present CTA bilaterally Cardiac: Present Regular Rate (with ectopics) Comment:: frequent ectopics GI: Present soft and normal bowel sounds; Absent distention or tenderness Extremities: Present joint swelling (Left knee ); Absent edema (Right leg without edema.) Skin: Present intact Neuro: Present alert and oriented x 3 Assessment and Plan *Assessment and plan (1) Atrial fibrillation with rapid ventricular response: Status: Acute Category: Medical Code(s): I48.91 - Unspecified atrial fibrillation (2) Elevated troponin: Status: Acute Category: Medical Code(s): R79.89 - Other specified abnormal findings of blood chemistry (3) CHI (closed head injury): Status: Acute Qualifiers: Encounter type: subsequent encounter Qualified Code(s): S09.90XD - Unspecified injury of head, subsequent encounter Category: Medical Code(s): S09.90XA - Unspecified injury of head, initial encounter (4) Carotid stenosis, bilateral: Status: Acute Category: Medical Code(s): I65.23 - Occlusion and stenosis of bilateral carotid arteries (5) Obesity (BMI 30.0-34.9): Status: Chronic Category: Medical Code(s): E66.9 - Obesity, unspecified (6) Headache: Status: Acute Qualifiers: Headache chronicity pattern: unspecified pattern Headache type: unspecified Intractability: not intractable Qualified Code(s): R51.9 - Headache, unspecified Category: Medical Code(s): R51.9 - Headache, unspecified (7) Hypertensive cardiovascular disease: Status: Chronic Qualifiers: Heart failure presence: unspecified whether heart failure present Qualified Code(s): I11.9 - Hypertensive heart disease without heart failure Category: Medical Code(s): I11.9 - Hypertensive heart disease without heart failure (8) Hyperlipidemia: Status: Acute Qualifiers: Hyperlipidemia type: mixed hyperlipidemia Qualified Code(s): E78.2 - Mixed hyperlipidemia Category: Medical Code(s): E78.5 - Hyperlipidemia, unspecified (9) Diabetes mellitus: Status: Chronic Qualifiers: Diabetes mellitus complication status: with other specified complication Diabetes mellitus 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: unspecified 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 status Diabetes mellitus type: type 2 Qualified Code(s): E11.69 - Type 2 diabetes mellitus with other specified complication Category: Medical Code(s): E11.9 - Type 2 diabetes mellitus without complications (10) Nausea and vomiting: Status: Acute Category: Medical Code(s): R11.2 - Nausea with vomiting, unspecified (11) KALIA (acute kidney injury): Status: Acute Category: Medical Code(s): N17.9 - Acute kidney failure, unspecified (12) Dehydration: Status: Acute Category: Medical Code(s): E86.0 - Dehydration (13) Closed fracture of left patella: Status: Acute Qualifiers: Encounter type: initial encounter Fracture alignment: displaced Fracture morphology: transverse Qualified Code(s): S82.032A - Displaced transverse fracture of left patella, initial encounter for closed fracture Category: Medical Code(s): S82.002A - Unspecified fracture of left patella, initial encounter for closed fracture (14) Vomiting: Status: Acute Category: Medical Code(s): R11.10 - Vomiting, unspecified (15) Anemia: Status: Acute Category: Medical Code(s): D64.9 - Anemia, unspecified (16) Status post coronary artery stent placement: Status: Acute Category: Surgical Code(s): Z95.5 - Presence of coronary angioplasty implant and graft (17) CAD (coronary artery disease): Status: Acute Category: Medical Code(s): I25.10 - Atherosclerotic heart disease of [place] coronary artery without angina pectoris Plan Patient was seen by Dr. Finch who feels she can remain in the knee immobilizer and f/u in his office in 25 days to discuss options for her knee. Cardiology will follow as well. She is nauseated and the zofran is not helping. Will discuss further care with Dr. Garcia and recheck labs. Dr. Garcia entry - Saw patient, agree with above note. Patient will need placement.
[2023-10-08] MEDS: METFORMIN 500MG TABLET 1000 MG PO ×2 (08:36→17:05)
[2023-10-08] MEDS: ASPIRIN EC 81MG TABLET 81 MG PO (08:37)
[2023-10-08] MEDS: EMPAGLIFLOZIN 10MG TABLET 10 MG PO (08:37)
[2023-10-08] MEDS: AMIODARONE 200MG TABLET 400 MG PO ×2 (08:37→20:32)
[2023-10-08] MEDS: CLOPIDOGREL 75MG TAB 75 MG PO (08:37)
[2023-10-08] MEDS: METOPROLOL TARTRATE 50MG TABLET 50 MG PO ×4 (08:38→20:32)
[2023-10-08] MEDS: FAMOTIDINE 20MG TABLET 20 MG PO ×2 (08:38→20:31)
[2023-10-08] MEDS: SPIRONOLACTONE 25MG TABLET 25 MG PO (08:38)
[2023-10-08] MEDS: LISINOPRIL 10MG TABLET 10 MG PO (08:38)
[2023-10-08] MEDS: ENOXAPARIN 80MG/0.8ML SYRINGE 80 MG SQ ×2 (08:38→20:35)
[2023-10-08] MEDS: 0.9 % SODIUM CHLORIDE 1000ML 1,000 ML 75 ML IV ×2 (08:45→22:25)
[2023-10-08 09:33] LABS: Basophils # 0.1 K/mm3 (0-0.2); Basophils % 0.6 % (0.1-2.0); Eosinophils # 0.4 K/mm3 (0.0-0.4); Eosinophils % 4.8 % (0.1-12.0); Hematocrit 30.9 % (37.0-47.0); Hemoglobin 9.8 g/dL (12.2-16.2); Lymphocytes # 1.6 K/mm3 (0.7-4.5); Lymphocytes % 17.9 % (10-50); Mean Corpuscular HGB Conc 31.8 g/dL (31.8-35.4); Mean Corpuscular Hemoglobin 31.6 pg (27.0-31.2); Mean Corpuscular Volume 99.4 fl (81-99); Mean Platelet Volume 7.6 fl (7.4-10.4); Monocytes # 0.5 K/mm3 (0.1-1.0); Monocytes % 5.8 % (1.7-9.3); Neutrophils # 6.3 K/mm3 (1.8-7.8); Neutrophils % 70.9 % (37.0-80.0); Platelet Count 261 K/mm3 (142-424); Red Blood Count 3.11 M/mm3 (4.20-5.40); Red Cell Distribution Width 14.1 % (11.5-17.5); White Blood Count 8.8 K/mm3 (4.8-10.8)
[2023-10-08 10:28] LABS: Alanine Aminotransferase 46 U/L (12-78); Albumin Level 2.9 g/dl (3.5-5.0); Albumin/Globulin Ratio 0.8 (1.1-1.8); Alkaline Phosphatase 134 U/L (38-126); Anion Gap 16.3 mEq/L (5-15); Aspartate Amino Transferase 71 U/L (14-36); Bilirubin,Total 0.8 mg/dl (0.2-1.3); Blood Urea Nitrogen 13 mg/dl (7-17); Calcium 8.1 mg/dl (8.4-10.2); Carbon Dioxide 20 mmol/L (22.0-30.0); Chloride 108 mmol/L (98-107); Creatinine Clearance Estimated 59 mL/min (50-200); Estimated Glomerular Filt Rate 49 ml/min (>60); GFR (African American) 59 ML/MIN (>60); Globulin 3.8 g/dL (1.3-3.2); Glucose 123 mg/dl (74-100); Lipase 27 U/L (23-300); Potassium 4.3 mmoL/L (3.5-5.1); Sodium 140 mmol/L (136-145); Total Protein,Serum 6.7 g/dl (6.3-8.2)
[2023-10-08 10:32] LABS: Amylase < 30 U/L (30-110)
--- NOTE | 2023-10-08 10:53 | EXP.CARD.PN ---
Subjective Subjective Date: 10/08/23 Time: 10:53 Principal diagnosis: CAD, N/V Interval history: 73-year-old white female in bed in no acute distress. She does complain of some nausea this morning. Denies any chest pain, pressure or tightness. Exam Data for Last 24 hours Vital signs and Labs for Last 24 Hours: Temp Pulse Resp BP Pulse Ox O2 Del Method O2 Flow Rate 97.9 F 76 18 133/59 L 92 L Room Air 3 10/08/23 08:00 10/08/23 08:00 10/08/23 08:00 10/08/23 08:00 10/08/23 08:00 10/08/23 09:00 10/08/23 08:00 Laboratory Results - last 24 hr 10/07/23 11:40: POC Glucose 159 H 10/07/23 17:06: POC Glucose 111 H 10/07/23 20:50: POC Glucose 134 H 10/07/23 22:02: POC Glucose 138 H 10/08/23 06:17: POC Glucose 140 H 10/08/23 09:20: WBC 8.8, RBC 3.11 L, Hgb 9.8 L, Hct 30.9 L, MCV 99.4 H, MCH 31.6 H, MCHC 31.8, RDW 14.1, Plt Count 261, MPV 7.6, Neut % (Auto) 70.9, Lymph % (Auto) 17.9, [place] % (Auto) 5.8, Eos % (Auto) 4.8, Baso % (Auto) 0.6, Neut # (Auto) 6.3, Lymph # (Auto) 1.6, [place] # (Auto) 0.5, Eos # (Auto) 0.4, Baso # (Auto) 0.1, Sodium 140, Potassium 4.3, Chloride 108 H, Carbon Dioxide 20 L, Anion Gap 16.3 H, BUN 13 D, Creatinine 1.10 H D, Estimated Creat Clear 59, Estimated GFR 49 L, Est GFR ( Amer) 59 D, Glucose 123 H, Calcium 8.1 L, Total Bilirubin 0.8, AST 71 H, ALT 46, Alkaline Phosphatase 134 H, Total Protein 6.7, Albumin 2.9 L, Globulin 3.8 H, Albumin/Globulin Ratio 0.8 L, Amylase < 30 L, Lipase 27 I & O for Last 24 hours: Intake & Output 10/05/23 10/06/23 10/07/23 10/08/23 11:59 11:59 11:59 11:59 Intake Total 840 / 840 2315.086 / 2315.086 1090 / 1090 200 / 200 Output Total 150 / 150 550 / 550 400 / 400 900 / 900 Balance 690 / 690 1765.086 / 1765.086 690 / 690 -700 / -700 Weight 176 lb 4 oz 180 lb 12.8 oz 180 lb 14.228 oz 183 lb 0.444 oz Microbiology Reports for the Last 24 Hours: Microbiology 10/01/23 13:01 Blood Blood Culture - Final 10/01/23 13:07 Blood Blood Culture - Final Constitutional Constitutional: no acute distress *Routine Respiratory Exam Respiratory: Present CTA bilaterally *Routine Cardiovascular Exam Cardiovascular: Present RRR Progress Note: A&P Assessment and plan (1) CHI (closed head injury): Status: Acute (2) Carotid stenosis, bilateral: Status: Acute (3) Obesity (BMI 30.0-34.9): Status: Chronic (4) Headache: Status: Acute (5) Hypertensive cardiovascular disease: Status: Chronic (6) Hyperlipidemia: Status: Acute (7) Diabetes mellitus: Status: Chronic (8) Nausea and vomiting: Status: Acute (9) Closed fracture of left patella: Status: Acute (10) Anemia: Status: Acute (11) Status post coronary artery stent placement: Status: Acute (12) CAD (coronary artery disease): Status: Acute Assessment and Plan Assessment and Plan for All Diagnoses:: 1. New onset atrial fibrillation with rapid ventricular response -converted to NSR with amiodarone. Rate improved with increase in metoprolol -Echo shows EF 55% with systolic dysfunction -TSH is normal -[id number] score of at least 5 (age, sex, hypertension, diabetes, PAD) -Start Lovenox 1 mg/kg and transition to oral anticoagulation at time of discharge. 2. Type II non-STEMI -Severe coronary calcifications noted on CTA of the chest -Marquise myoview abnormal. -C with placement of 3 TORI to Left main into LAD and Cx -DAPT with ASA/plavix for 30 days then stop Aspirin since she will be need either Xarelto or Eliquis for A. fib 3. Poorly controlled diabetes with hemoglobin A1c greater than 10 -Defer to PCP -Add Jardiance due to cardiovascular benefit 4. Recent nausea and vomiting, returned last night -getting zofran 5. Hyperlipidemia -Resume statin therapy 6. 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 Recent fall with left patellar fracture and closed head injury -Needs surgery for patella fracture with tentative plans to be done in 3-4 wks -CT of the head on 2 separate occasions negative for acute intracranial injury 8. Anemia -Hgb up to 9.8 today 9. 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 Small pericardial effusion with RV invagination without clear evidence of tamponade on Echo, 10/05/2023 -repeat limited echo results pending 11. HFpEF with 8 liters of fluid taken in than put out since admission -on lisinopril and metoprolol along with spironolactone and jardiance -repeat one time dose of lasix today -on spironolactone 25 mg daily Repeat lasix today review of limited echo shows no change in EF and slight improvement in pericardial effusion.
[2023-10-08 11:28] LABS: POC Glucose,Bedside 123 (70-110)
[2023-10-08] MEDS: FUROSEMIDE 40MG/4ML VIAL 40 MG IV (11:43)
[2023-10-08] MEDS: SODIUM CHLORIDE 0.9% 25ML BAG 25 ML IV (11:43)
[2023-10-08] MEDS: PROMETHAZINE HCL 25MG/ML 1ML VIAL 12.5 MG IV (11:43)
--- NOTE | 2023-10-08 16:11 | DIET.NUTRFU ---
Spoke to nurse today, meal intake at lunch showed improvement 75%. She was also noted to have a BM yesterday. BM on 10/05 was reported as just a smear. Currently on senekot and miralax and also received a fleet enema prior to BM 10/07. This morning she complained of nausea with zofran given. Seems to be feeling better will continue to monitor po intake
[2023-10-08 16:27] LABS: POC Glucose,Bedside 139 (70-110)
--- NOTE | 2023-10-08 17:41 | PC.NURSE ---
A&OX4. TOLERATING 2LNC WELL, UNABLE TO WEAN LOWER TODAY. PT HAS REMAINED IN BED MAJORITY OF THE SHIFT, STATES SHE HAS FELT TIRED AND NAUSEATED. PRN NA MED GIVEN PER OCT, EFFECTIVENESS NOTED. PT HAS BARELY EATEN ANYTHING TODAY, A COUPLE BITES AT LUNCH AND SUPPER. STATES SHE JUST DOESN'T HAVE AN APPETITE. DID GET UP TO CHAIR FOR A WHILE TODAY WITH PT. TOLERATED WELL. HAS BEEN INCONTINENT IN BRIEF TODAY, NO BM NOTED THIS SHIFT. DID REFUSE HER MIRALAX THIS MORNING. FAMILY REMAINS AT BEDSIDE, SEEN BY MICHELLE JEFFERY TODAY. NO NEEDS AT THIS TIME, VSS.
[2023-10-08] MEDS: PANTOPRAZOLE 40MG TABLET 40 MG PO (20:31)
[2023-10-08] MEDS: ATORVASTATIN 40MG TABLET 80 MG PO (20:32)
[2023-10-08] MEDS: humaLOG 100 UNITS/ML 3ML VIAL (SSI) SQ (20:33)
[2023-10-09] VITALS: BP 106/41; PULSE 69; PULSE 72; RESP 16; TEMP 36.9; O2SAT 98
[2023-10-09] MEDS: PROMETHAZINE HCL 25MG/ML 1ML VIAL 12.5 MG IV (03:44)
[2023-10-09 04:00] VITALS: BP 120/52; PULSE 71; PULSE 79; RESP 18; TEMP 36.9; O2SAT 91; BMI 29.5
--- NOTE | 2023-10-09 05:16 | PC.NURSE ---
Patient has not been able to rest good through the shift. Patient knee was hurting and medicated per mar. then patient back was itching and patient was provided lotion. Patient got to rest for a little after medication for pain, but then was awoke with nausea and medicated for that as well. Patient states it is easier to pee in the brief than get up so patient was incontinent twice this shift. At the start of the shift the patient was on 2L NC, patient was weaned to RA through the shift and stating above 90% on RA. RN did provider patient with an [employer] spirometer and educated the patient to use it while awake to help open her lungs up. Patient verbalized understanding. 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
[2023-10-09] MEDS: METFORMIN 500MG TABLET 1000 MG PO (06:39)
[2023-10-09 06:45] LABS: POC Glucose,Bedside 147 (70-110)
[2023-10-09 08:00] VITALS: BP 119/59; PULSE 72; RESP 18; TEMP 36.7; O2SAT 96
[2023-10-09] MEDS: METOPROLOL TARTRATE 50MG TABLET 50 MG PO ×2 (08:25→13:25)
[2023-10-09] MEDS: ASPIRIN EC 81MG TABLET 81 MG PO (08:25)
[2023-10-09] MEDS: SPIRONOLACTONE 25MG TABLET 25 MG PO (08:25)
[2023-10-09] MEDS: LISINOPRIL 10MG TABLET 10 MG PO (08:25)
[2023-10-09] MEDS: FAMOTIDINE 20MG TABLET 20 MG PO (08:25)
[2023-10-09] MEDS: SENNOSIDES 8.6MG/DOCUSATE 50MG TABLET 1 TAB PO (08:25)
[2023-10-09] MEDS: EMPAGLIFLOZIN 10MG TABLET 10 MG PO (08:25)
[2023-10-09] MEDS: CLOPIDOGREL 75MG TAB 75 MG PO (08:25)
[2023-10-09] MEDS: AMIODARONE 200MG TABLET 400 MG PO (08:25)
[2023-10-09] MEDS: ENOXAPARIN 80MG/0.8ML SYRINGE 80 MG SQ (08:34)
--- NOTE | 2023-10-09 08:35 | EXP.ACUTE.PN ---
Subjective *Date: 10/09/23 *Time: 08:46 Interval history: Patient is feeling a little better this am. Phenergan seems to work better for the nausea. Her pain is controlled. She is sitting up in a chair this am and has had about 5 bites of breakfast. Still no BM. She is getting a stool softner this am and would like some prune juice. She is requesting something at night to help her sleep because she can't turn off her mind. Medical Exam Vital signs and Labs for Last 24 Hours: Vital Signs Temp Pulse Pulse Resp BP Pulse Ox O2 Del Method 10/09/23 08:00 98.0 F 72 18 119/59 L 96 Nasal Cannula 10/09/23 07:00 Room Air 10/09/23 04:00 98.5 F 79 18 120/52 L 91 L Nasal Cannula 10/09/23 05:00 Room Air 10/09/23 03:00 Non-Rebreather 10/09/23 04:00 71 10/08/23 20:00 70 10/09/23 00:00 69 10/09/23 01:00 Nasal Cannula 10/09/23 00:00 98.4 F 72 16 106/41 L 98 Nasal Cannula 10/08/23 23:00 Nasal Cannula 10/08/23 21:00 Nasal Cannula 10/08/23 20:00 Nasal Cannula 10/08/23 20:00 98.8 F 70 18 115/49 L 96 Nasal Cannula 10/08/23 18:47 Nasal Cannula 10/08/23 16:38 Nasal Cannula 10/08/23 16:00 65 10/08/23 12:00 70 10/08/23 15:46 98.3 F 65 16 91/48 L 95 Nasal Cannula 10/08/23 14:44 Nasal Cannula 10/08/23 13:00 Room Air 10/08/23 11:46 98.1 F 70 19 140/70 91 L Nasal Cannula 10/08/23 10:57 Room Air 10/08/23 09:00 Room Air O2 Flow Rate 10/09/23 08:00 2 10/09/23 07:00 10/09/23 04:00 10/09/23 05:00 10/09/23 03:00 2 10/09/23 04:00 10/08/23 20:00 10/09/23 00:00 10/09/23 01:00 2 10/09/23 00:00 10/08/23 23:00 2 10/08/23 21:00 2 10/08/23 20:00 2 10/08/23 20:00 10/08/23 18:47 2 10/08/23 16:38 2 10/08/23 16:00 10/08/23 12:00 10/08/23 15:46 2 10/08/23 14:44 2 10/08/23 13:00 10/08/23 11:46 3 10/08/23 10:57 10/08/23 09:00 Intake and Output 10/08/23 10/09/23 10/09/23 19:59 03:59 11:59 Intake Total 480 / 820 100 / 820 240 / 820 Output Total 0 / 0 0 / 0 Balance 480 / 820 100 / 820 240 / 820 Intake: Intake, Oral Amount 480 / 820 100 / 820 240 / 820 Output: Output, Urine Amount 0 / 0 0 / 0 Other: Number of Unmeasured Voids 1 1 1 Weight 166 lb 4 oz Patient Weight 10/09/23 11:59 Weight 166 lb 4 oz Laboratory Results - last 24 hr 10/08/23 09:20: WBC 8.8, RBC 3.11 L, Hgb 9.8 L, Hct 30.9 L, MCV 99.4 H, MCH 31.6 H, MCHC 31.8, RDW 14.1, Plt Count 261, MPV 7.6, Neut % (Auto) 70.9, Lymph % (Auto) 17.9, [place] % (Auto) 5.8, Eos % (Auto) 4.8, Baso % (Auto) 0.6, Neut # (Auto) 6.3, Lymph # (Auto) 1.6, [place] # (Auto) 0.5, Eos # (Auto) 0.4, Baso # (Auto) 0.1, Sodium 140, Potassium 4.3, Chloride 108 H, Carbon Dioxide 20 L, Anion Gap 16.3 H, BUN 13 D, Creatinine 1.10 H D, Estimated Creat Clear 59, Estimated GFR 49 L, Est GFR ( Amer) 59 D, Glucose 123 H, Calcium 8.1 L, Total Bilirubin 0.8, AST 71 H, ALT 46, Alkaline Phosphatase 134 H, Total Protein 6.7, Albumin 2.9 L, Globulin 3.8 H, Albumin/Globulin Ratio 0.8 L, Amylase < 30 L, Lipase 27 10/08/23 11:17: POC Glucose 123 H 10/08/23 16:18: POC Glucose 139 H 10/09/23 06:25: POC Glucose 147 H I & O for Labs for Last 24 Hours: Intake & Output 10/06/23 10/07/23 10/08/23 10/09/23 11:59 11:59 11:59 11:59 Intake Total 2315.086 / 2315.086 1090 / 1090 200 / 200 820 / 820 Output Total 550 / 550 400 / 400 900 / 900 0 / 0 Balance 1765.086 / 1765.086 690 / 690 -700 / -700 820 / 820 Weight 180 lb 12.8 oz 180 lb 14.228 oz 183 lb 0.444 oz 166 lb 4 oz Microbiology Reports for the Last 24 Hours: Microbiology 10/04/23 22:05 Blood Blood Culture - Preliminary 10/04/23 22:10 Blood Blood Culture - Preliminary Constitutional: Present no acute distress Comment:: Looks much better this am. ENT: Present mucous membranes dry Respiratory: Present CTA bilaterally Cardiac: Present Reg Rate and Rhythm Comment:: frequent ectopics GI: Present soft and normal bowel sounds; Absent distention or tenderness Extremities: Present joint swelling (Left knee ); Absent edema (Right leg without edema.) Skin: Present intact Neuro: Present alert and oriented x 3 Assessment and Plan *Assessment and plan (1) Atrial fibrillation with rapid ventricular response: Status: Acute Category: Medical Code(s): I48.91 - Unspecified atrial fibrillation (2) Elevated troponin: Status: Acute Category: Medical Code(s): R79.89 - Other specified abnormal findings of blood chemistry (3) CHI (closed head injury): Status: Acute Qualifiers: Encounter type: subsequent encounter Qualified Code(s): S09.90XD - Unspecified injury of head, subsequent encounter Category: Medical Code(s): S09.90XA - Unspecified injury of head, initial encounter (4) Carotid stenosis, bilateral: Status: Acute Category: Medical Code(s): I65.23 - Occlusion and stenosis of bilateral carotid arteries (5) Obesity (BMI 30.0-34.9): Status: Chronic Category: Medical Code(s): E66.9 - Obesity, unspecified (6) Headache: Status: Acute Qualifiers: Headache chronicity pattern: unspecified pattern Headache type: unspecified Intractability: not intractable Qualified Code(s): R51.9 - Headache, unspecified Category: Medical Code(s): R51.9 - Headache, unspecified (7) Hypertensive cardiovascular disease: Status: Chronic Qualifiers: Heart failure presence: unspecified whether heart failure present Qualified Code(s): I11.9 - Hypertensive heart disease without heart failure Category: Medical Code(s): I11.9 - Hypertensive heart disease without heart failure (8) Hyperlipidemia: Status: Acute Qualifiers: Hyperlipidemia type: mixed hyperlipidemia Qualified Code(s): E78.2 - Mixed hyperlipidemia Category: Medical Code(s): E78.5 - Hyperlipidemia, unspecified (9) Diabetes mellitus: Status: Chronic Qualifiers: Diabetes mellitus complication status: with other specified complication Diabetes mellitus custodial insulin use: unspecified terminal superintendent insulin use status Diabetes mellitus type: type 2 Qualified Code(s): E11.69 - Type 2 diabetes mellitus with other specified complication Category: Medical Code(s): E11.9 - Type 2 diabetes mellitus without complications (10) Nausea and vomiting: Status: Acute Category: Medical Code(s): R11.2 - Nausea with vomiting, unspecified (11) KALIA (acute kidney injury): Status: Acute Category: Medical Code(s): N17.9 - Acute kidney failure, unspecified (12) Dehydration: Status: Acute Category: Medical Code(s): E86.0 - Dehydration (13) Closed fracture of left patella: Status: Acute Qualifiers: Encounter type: initial encounter Fracture alignment: displaced Fracture morphology: transverse Qualified Code(s): S82.032A - Displaced transverse fracture of left patella, initial encounter for closed fracture Category: Medical Code(s): S82.002A - Unspecified fracture of left patella, initial encounter for closed fracture (14) Vomiting: Status: Acute Category: Medical Code(s): R11.10 - Vomiting, unspecified (15) Anemia: Status: Acute Category: Medical Code(s): D64.9 - Anemia, unspecified (16) Status post coronary artery stent placement: Status: Acute Category: Surgical Code(s): Z95.5 - Presence of coronary angioplasty implant and graft (17) CAD (coronary artery disease): Status: Acute Category: Medical Code(s): I25.10 - Atherosclerotic heart disease of [place] coronary artery without angina pectoris Plan Feeling better today. Was evaluated by Jax Leary yesterday. Awaiting word on placement. Will need something for sleep and constipation. Dr. Garcia entry - Saw patient, agree with above note.
[2023-10-09] MEDS: humaLOG 100 UNITS/ML 3ML VIAL (SSI) SQ (11:28)
[2023-10-09 11:29] VITALS: BP 140/65; PULSE 72; RESP 18; TEMP 36.6; O2SAT 97
--- NOTE | 2023-10-09 11:34 | P.DS_ITS ---
General Admission date:: 10/01/23 Discharge date: 10/09/23 HPI HPI HPI: Ms. Fernandez is a 73-year-old female who had a fall at home on 09/25/2023. She hit her head and fractured her left knee. An appointment was scheduled with her with Dr. Finch today. Her daughter states for the past 3 to 4 days she has had nausea and vomiting along with severe pain in the left knee. Dr. Garcia did send some tramadol for pain. She has been unable to keep down any solids or liquids and is dehydrated. Her daughter states she was told by the ER physician that surgery would be necessary, but she does not feel her mother can have surgery as sick as she is at this time. She will be admitted for further evaluation and treatment. Hospital Course Hospital Course Hospital Course: The patient was admitted and started on antiemetics and IV fluids. Labs were ordered along with COVID/flu tests and blood cultures. Her renal function did return elevated. She continued to have knee pain, but did have less vomiting by 10/02/2023. She was still unable to eat. Her renal function did improve and her white blood cell count normalized. IV hydration and antiemetics were continued. Dr. Morrow was called on-call due to some confusion and hallucinations. A head CT was done and was normal. She had received tramadol not long before the episode. Her pain medication was therefore changed and some of her home medications were resumed. By 10/04/2023, she was able to eat a few bites of breakfast. Her pain was better controlled. She did continue with nausea. She had an episode with rapid heart rate during the evening of 10/05/2023. She received a 500 mL bolus. She denies any chest pain or shortness of breath. A CTA of the chest showed no PE but severe coronary artery calcifications. There was mild chronic pulmonary interstitial fibrosis and a 4 mm noncalcified right upper lobe nodule that was stable from imaging in 2020. The monitor was showing paroxysmal atrial fibrillation with varying ventricular rate in the 70s up to 190. She was given a bolus of Cardizem and was placed on a Cardizem drip and transferred to stepdown. Cardiology was consulted. The IV Cardizem did not slow her rate, therefore she was started on IV amiodarone with subsequent conversion to sinus rhythm. She was started on Lovenox and the plan was to transition to oral anticoagulation at the time of discharge. She had an elevated troponin. Her echo showed an EF of 45%. Cardiology recommended a Lexiscan Myoview to assess preop risk for knee surgery. She was also started on metoprolol 25 mg twice daily and amiodarone. Her stress test was abnormal with ischemia and cardiology wanted to do a heart cath. Her metoprolol was increased to 50 mg twice daily. She had a heart cath and had severe to critical ostial LAD disease. She had successful stenting with 3 stents. Cardiology wanted her on Plavix 75 mg daily plus aspirin 81 mg. They wanted her surgery postponed for a minimum of 30 days. She did have some right wrist pain after the cath. She was given a one-time dose of Lasix and started on spironolactone 25 mg daily. She was also started on Jardiance. She was seen in consultation by Dr. Finch who felt she was not a good surgical candidate given the fact that she would need to remain on Plavix for 30 days. He wanted to follow-up with the patient in 25 days in his office and repeat an x-ray to see what treatment options would be possible. He wanted her to remain in a knee immobilizer. He felt she could bear weight as tolerated with the knee brace straight, however weightbearing on the left side would be difficult secondary to pain. It was felt the patient would need placement for rehab. She did have a limited echo which showed no change in her EF and improvement in the pericardial effusion. [facility] came to evaluate the patient and a bed was available. Her nausea was better controlled with Phenergan and her pain was controlled with pain medication. She was started on stool softener for constipation. She was stable to be discharged to [facility] for rehab. Exam Data for Last 24 hours Vital signs and Labs for Last 24 Hours: Temp Pulse Resp BP Pulse Ox O2 Del Method O2 Flow Rate 97.9 F 72 18 140/65 97 Room Air 2 10/09/23 11:10/09/23 11:10/09/23 11:10/09/23 11:10/09/23 11:10/09/23 11:10/09/23 08:00 Laboratory Results - last 24 hr 10/08/23 16:18: POC Glucose 139 H 10/09/23 06:25: POC Glucose 147 H I & O for Last 24 hours: Intake & Output 10/06/23 10/07/23 10/08/23 10/09/23 11:59 11:59 11:59 11:59 Intake Total 2315.086 / 2315.086 1090 / 1090 200 / 200 820 / 820 Output Total 550 / 550 400 / 400 900 / 900 0 / 0 Balance 1765.086 / 1765.086 690 / 690 -700 / -700 820 / 820 Weight 180 lb 12.8 oz 180 lb 14.228 oz 183 lb 0.444 oz 166 lb 4 oz Microbiology Reports for the Last 24 Hours: Microbiology 10/04/23 22:05 Blood Blood Culture - Preliminary 10/04/23 22:10 Blood Blood Culture - Preliminary Narrative: Constitutional: Present no acute distress Head: Absent normocephalic Respiratory: Present CTA bilaterally Cardiac: Present Reg Rate and Rhythm GI: Present soft; Absent distention or tenderness Extremities: Present joint swelling (Left knee is in an immobilizer and there is edema and ecchymosis around the patella, right knee has some edema and ecchymosis along the medial aspect of the knee) Skin: Present ecchymosis (Along the forehead and bilateral knees) Neuro: Present alert, awake and oriented x 3 Results Data Completed and Pending Labs on day of discharge: Labs from last 24 hours 10/09/23 10/08/23 06:25 16:18 POC Glucose 147 H 139 H Preliminary micro results at discharge 10/04/23 22:05 Blood Culture - Preliminary Blood 10/04/23 22:10 Blood Culture - Preliminary Blood DS: Diagnosis Discharge Diagnosis (1) Atrial fibrillation with rapid ventricular response: Status: Acute Code(s): I48.91 - Unspecified atrial fibrillation (2) Elevated troponin: Status: Acute Code(s): R79.89 - Other specified abnormal findings of blood chemistry (3) CHI (closed head injury): Status: Acute Code(s): S09.90XA - Unspecified injury of head, initial encounter Qualifiers: Encounter type: subsequent encounter Qualified Code(s): S09.90XD - Unspecified injury of head, subsequent encounter (4) Carotid stenosis, bilateral: Status: Acute Code(s): I65.23 - Occlusion and stenosis of bilateral carotid arteries (5) Obesity (BMI 30.0-34.9): Status: Chronic Code(s): E66.9 - Obesity, unspecified (6) Headache: Status: Acute Code(s): R51.9 - Headache, unspecified Qualifiers: Headache chronicity pattern: unspecified pattern Headache type: unspecified Intractability: not intractable Qualified Code(s): R51.9 - Headache, unspecified (7) Hypertensive cardiovascular disease: Status: Chronic Code(s): I11.9 - Hypertensive heart disease without heart failure Qualifiers: Heart failure presence: unspecified whether heart failure present Qualified Code(s): I11.9 - Hypertensive heart disease without heart failure (8) Hyperlipidemia: Status: Acute Code(s): E78.5 - Hyperlipidemia, unspecified Qualifiers: Hyperlipidemia type: mixed hyperlipidemia Qualified Code(s): E78.2 - Mixed hyperlipidemia (9) Diabetes mellitus: Status: Chronic Code(s): E11.9 - Type 2 diabetes mellitus without complications Qualifiers: Diabetes mellitus complication status: with other specified complication Diabetes mellitus terminal operations supervisor insulin use: unspecified terminal operations supervisor insulin use status Diabetes mellitus type: type 2 Qualified Code(s): E11.69 - Type 2 diabetes mellitus with other specified complication (10) Nausea and vomiting: Status: Acute Code(s): R11.2 - Nausea with vomiting, unspecified (11) KALIA (acute kidney injury): Status: Acute Code(s): N17.9 - Acute kidney failure, unspecified (12) Dehydration: Status: Acute Code(s): E86.0 - Dehydration (13) Closed fracture of left patella: Status: Acute Code(s): S82.002A - Unspecified fracture of left patella, initial encounter for closed fracture Qualifiers: Encounter type: initial encounter Fracture alignment: displaced Fracture morphology: transverse Qualified Code(s): S82.032A - Displaced transverse fracture of left patella, initial encounter for closed fracture (14) Vomiting: Status: Acute Code(s): R11.10 - Vomiting, unspecified (15) Anemia: Status: Acute Code(s): D64.9 - Anemia, unspecified (16) Status post coronary artery stent placement: Status: Acute Code(s): Z95.5 - Presence of coronary angioplasty implant and graft (17) CAD (coronary artery disease): Status: Acute Code(s): I25.10 - Atherosclerotic heart disease of [place] coronary artery without angina pectoris Meds Home Medications and Allergies Home Medications Medication Instructions Recorded Confirmed Type metformin 1,000 mg tablet 1,000 mg PO BID Diabetes 01/02/21 10/01/23 History atorvastatin 80 mg tablet 80 mg PO DAILY Cholesterol 02/03/22 10/01/23 History blood sugar diagnostic (Accu-Chek #10 ea 02/03/22 10/01/23 History Amanda Plus test strips) clopidogrel 75 mg tablet 75 mg PO DAILY Blood Thinner 02/03/22 10/01/23 History lancets (Accu-Chek Softclix #100 ea 02/03/22 10/01/23 History Lancets) lisinopril 10 mg tablet 10 mg PO DAILY bp 02/03/22 10/01/23 History pen needle, diabetic 31 gauge x #1,200 ea 02/03/22 10/01/23 History 5/16 (Droplet Pen Needle) aspirin 81 mg capsule 81 mg PO DAILY Blood Thinner 06/29/23 10/01/23 History ergocalciferol (vitamin D2) 10 mcg 10 mcg PO BID Supplement 06/29/23 10/01/23 History (400 unit) tablet vitamin B12 500 mcg-folic acid 400 1 tab PO DAILY Supplement 06/29/23 10/01/23 History mcg tablet insulin glargine 100 unit/mL (3 40 unit SQ HS 10/01/23 10/01/23 History mL) subcutaneous pen (Lantus Solostar U-100 Insulin) ondansetron HCl 4 mg tablet 4 mg PO Q6 10/01/23 10/01/23 History acetaminophen 325 mg tablet 650 mg PO Q4HP PRN Fever Or Mild 10/09/23 Rx Pain (1-3) #0 tabs amiodarone 200 mg tablet 400 mg PO BID #0 tabs 10/09/23 Rx apixaban 5 mg tablet (Eliquis) 5 mg PO BID #60 tabs 10/09/23 Rx empagliflozin 10 mg tablet 10 mg PO DAILY #0 tabs 10/09/23 Rx (Jardiance) famotidine 20 mg tablet 20 mg PO BID #0 tabs 10/09/23 Rx ferrous sulfate 325 mg (65 mg 325 mg PO BID #60 tabs 10/09/23 Rx iron) tablet insulin lispro 100 unit/mL 0 unit (0 mL) SQ ACHS #0 mL 10/09/23 Rx subcutaneous solution (Humalog U-100 Insulin) metoprolol tartrate 50 mg tablet 50 mg PO QID #0 tabs 10/09/23 Rx oxycodone 5 mg tablet 5 mg PO Q4HP PRN Moderate Pain 10/09/23 Rx (4-6) #30 tabs polyethylene glycol 3350 17 gram 17 g PO DAILY #0 ea 10/09/23 Rx oral powder packet (Miralax) promethazine 12.5 mg tablet 12.5 mg PO Q6H PRN allergy 10/09/23 Rx symptoms #30 tabs sennosides 8.6 mg-docusate sodium 1 tab PO BIDP PRN Constipation #0 10/09/23 Rx 50 mg tablet (Stimulant Laxative tabs Plus) spironolactone 25 mg tablet 25 mg PO DAILY #0 tabs 10/09/23 Rx New Prescriptions to Start Prescriptions: apixaban [Eliquis] Cosme Garcia ferrous sulfate Cosme Garcia oxycodone Cosme Garcia promethazine Cosme Garcia Allergies Allergy/AdvReac Type Severity Reaction Status Date / Time No Known Allergies Allergy Verified 09/25/23 17:56 Discharge Plan Disposition Patient Disposition: [facility] Condition: Fair Discharge Order Discharge Orders: Discharge Order (Routine); Ordered 10/09/23 Ordered By: Cosme Garcia Follow up Plan Follow up with: Cosme Garcia MD [Primary Care Provider] - Enter time for follow up (At [facility]) Александр Finch DO [Staff Physician] - 10/29/23 1:00 pm (Follow-up with Ortho 10/29/2023 x-rays prior to visit) Prescriptions/Medication Reconciliation: New acetaminophen 325 mg Tablet 650 mg PO Q4HP PRN (Reason: Fever Or Mild Pain (1-3)) Qty: 0 0RF polyethylene glycol 3350 [Miralax] 17 gram Powder In Packet 17 g PO DAILY Qty: 0 0RF amiodarone 200 mg Tablet 400 mg PO BID Qty: 0 0RF famotidine 20 mg Tablet 20 mg PO BID Qty: 0 0RF metoprolol tartrate 50 mg Tablet 50 mg PO QID Qty: 0 0RF insulin lispro [Humalog U-100 Insulin] 100 unit/mL Solution 0 unit SQ ACHS Qty: 0 0RF oxycodone 5 mg Tablet 5 mg PO Q4HP PRN (Reason: Moderate Pain (4-6)) Qty: 30 0RF Jardiance 10 mg Tablet 10 mg PO DAILY Qty: 0 0RF sennosides-docusate sodium [Stimulant Laxative Plus] 8.6-50 mg Tablet 1 tab PO BIDP PRN (Reason: Constipation) Qty: 0 0RF spironolactone 25 mg Tablet 25 mg PO DAILY Qty: 0 0RF Eliquis 5 mg tablet 5 mg PO BID Qty: 60 0RF promethazine 12.5 mg tablet 12.5 mg PO Q6H PRN (Reason: allergy symptoms) Qty: 30 0RF Rx Instructions: 3 doses during day; last dose no later than 4 hr before bedtime ferrous sulfate 325 mg (65 mg iron) tablet 325 mg PO BID Qty: 60 0RF Continued atorvastatin 80 mg tablet 80 mg PO DAILY lisinopril 10 mg tablet 10 mg PO DAILY clopidogrel 75 mg tablet 75 mg PO DAILY metformin 1,000 MG tablet 1,000 mg PO BID ergocalciferol (vitamin D2) 10 mcg (400 unit) Tablet 10 mcg PO BID vitamin [id number] acid 500-400 mcg Tablet 1 tab PO DAILY Rx Instructions: administer with a meal aspirin 81 mg Capsule 81 mg PO DAILY ondansetron HCl 4 mg tablet 4 mg PO Q6 insulin glargine [Lantus Solostar U-100 Insulin] 100 unit/mL (3 mL) insulin pen 40 unit SQ HS Discontinued insulin aspart U-100 [Novolog FlexPen U-100 Insulin] 100 unit/mL (3 mL) Insulin Pen See Rx Instructions .ROUTE .COMPLEX Rx Instructions: sliding scale - Patient confirmed she only uses this per sliding scale with meals; gives 2 units per every 50mg/dL blood glucose reading greater than 200. tramadol 50 mg tablet 50 mg PO Q6HP PRN (Reason: Moderate Pain (Scale Score 5-6)) No Action (DME) pen needle, diabetic [Droplet Pen Needle] 31 gauge x 5/16 needle See Rx Instructions .ROUTE .MEDSUPPLY Qty: 1200 Rx Instructions: As directed (DME) Accu-Chek Amanda Plus test strp Strip See Rx Instructions .ROUTE .MEDSUPPLY Qty: 10 Rx Instructions: As directed (DME) lancets [Accu-Chek Softclix Lancets] Misc See Rx Instructions .ROUTE .MEDSUPPLY Qty: 100 Rx Instructions: As directed Problem Reconciliation Problems Reviewed?: Yes Patient Discharge Instructions ACTIVITY: Continue current activity DIET: diabetic diet and low fat, low cholesterol Additional Instructions: Weight bearing as tolerated Patient Instructions: Dehydration, DI for Dehydration -- Adult, DI for Atrial Fibrillation, DI for Patella Fracture, DI for Nausea -- Adult Providers Primary Care Provider: Cosme Garcia Admit Provider: Cosme Garcia Attending Provider: Cosme Garcia
[2023-10-09] MEDS: ACETAMINOPHEN 325MG TAB 650 MG PO (14:24)
--- NOTE | 2023-10-09 14:37 | EXP.CARD.PN ---
Subjective Subjective Date: 10/09/23 Time: 14:38 Principal diagnosis: CAD, N/V Interval history: 73-year-old white female in bed in no acute distress. Still with some nausea and decreased appetite. Patient is going to rehab facility today. Exam Data for Last 24 hours Vital signs and Labs for Last 24 Hours: Temp Pulse Resp BP Pulse Ox O2 Del Method O2 Flow Rate 97.9 F 72 18 140/65 97 Room Air 2 10/09/23 11:29 10/09/23 11:29 10/09/23 11:29 10/09/23 11:29 10/09/23 11:29 10/09/23 13:00 10/09/23 08:00 Laboratory Results - last 24 hr 10/08/23 16:18: POC Glucose 139 H 10/09/23 06:25: POC Glucose 147 H I & O for Last 24 hours: Intake & Output 10/07/23 10/08/23 10/09/23 10/10/23 11:59 11:59 11:59 11:59 Intake Total 1090 / 1090 200 / 200 820 / 820 240 / 240 Output Total 400 / 400 900 / 900 0 / 0 Balance 690 / 690 -700 / -700 820 / 820 240 / 240 Weight 180 lb 14.228 oz 183 lb 0.444 oz 166 lb 4 oz Microbiology Reports for the Last 24 Hours: Microbiology 10/04/23 22:05 Blood Blood Culture - Preliminary 10/04/23 22:10 Blood Blood Culture - Preliminary *Routine Respiratory Exam Respiratory: Present CTA bilaterally *Routine Cardiovascular Exam Cardiovascular: Present RRR Progress Note: A&P Assessment and plan (1) Atrial fibrillation with rapid ventricular response: Status: Acute (2) Elevated troponin: Status: Acute (3) CHI (closed head injury): Status: Acute (4) Carotid stenosis, bilateral: Status: Acute (5) Obesity (BMI 30.0-34.9): Status: Chronic (6) Headache: Status: Acute (7) Hypertensive cardiovascular disease: Status: Chronic (8) Hyperlipidemia: Status: Acute (9) Diabetes mellitus: Status: Chronic (10) Nausea and vomiting: Status: Acute (11) KALIA (acute kidney injury): Status: Acute (12) Dehydration: Status: Acute (13) Closed fracture of left patella: Status: Acute (14) Vomiting: Status: Acute (15) Anemia: Status: Acute (16) Status post coronary artery stent placement: Status: Acute (17) CAD (coronary artery disease): Status: Acute Assessment and Plan Assessment and Plan for All Diagnoses:: 1. New onset atrial fibrillation with rapid ventricular response -converted to NSR with amiodarone. Rate improved with increase in metoprolol -Echo shows EF 55% with systolic dysfunction -TSH is normal -[id number] score of at least 5 (age, sex, hypertension, diabetes, PAD) -Stop Lovenox -Start Eliquis 5 mg twice daily 2. Type II non-STEMI -Severe coronary calcifications noted on CTA of the chest -Marquise myoview abnormal. -C with placement of 3 TORI to Left main into LAD and Cx -DAPT with ASA/plavix for 30 days then stop Aspirin since she will be need either Xarelto or Eliquis for A. fib 3. Poorly controlled diabetes with hemoglobin A1c greater than 10 -Defer to PCP -Add Jardiance due to cardiovascular benefit 4. Recent nausea and vomiting, returned last night -getting zofran 5. Hyperlipidemia -Resume statin therapy 6. 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 Recent fall with left patellar fracture and closed head injury -Needs surgery for patella fracture with tentative plans to be done in 3-4 wks -CT of the head on 2 separate occasions negative for acute intracranial injury 8. Anemia -Hgb up to 9.8 today 9. 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 Small pericardial effusion with RV invagination without clear evidence of tamponade on Echo, 10/05/2023 -repeat limited echo results showed improved effusion 11. HFpEF with 8 liters of fluid taken in than put out since admission -on lisinopril and metoprolol along with spironolactone and jardiance -repeat one time dose of lasix today -on spironolactone 25 mg daily Agree with discharge from a cardiac standpoint. Medication recommendations: Lisinopril 10 mg daily Amiodarone 400 mg twice daily for 1 week then decrease to 400 mg daily Atorvastatin 80 mg daily Aspirin 81 mg daily for 30 days only (ending 11/05/2023) Plavix 75 mg daily Metoprolol tartrate 50 mg 4 times daily or 100 mg twice daily Jardiance 10 mg daily Spironolactone 25 mg daily Protonix 40 mg daily Follow-up in our office in 1 to 2 weeks.
== END 2023-10-09 14:45 | DRG 981 ==
PROVIDERS: Internal Medicine; Internal Medicine Adolescent Medicine; Nurse Practitioner Family; Physician Assistant; Admitting Provider Family Medicine; PCP Family Medicine; Visit Provider Family Medicine
PROC: 027236Z Dilation of Coronary Artery, Three Arteries with Three Drug-eluting Intraluminal Devices, Percutaneous Approach (ICD-10-PCS; principal; 2023-10-06 12:45)
DX: N17.9 Acute kidney failure, unspecified (principal); I21.A1 Myocardial infarction type 2; S82.032A Displaced transverse fracture of left patella, initial encounter for closed fracture; I50.30 Unspecified diastolic (congestive) heart failure; R44.3 Hallucinations, unspecified; I25.10 Atherosclerotic heart disease of native coronary artery without angina pectoris; I48.0 Paroxysmal atrial fibrillation; E86.0 Dehydration; S09.90XA Unspecified injury of head, initial encounter; E11.69 Type 2 diabetes mellitus with other specified complication; D64.9 Anemia, unspecified; W19.XXXA Unspecified fall, initial encounter; E78.2 Mixed hyperlipidemia; E11.51 Type 2 diabetes mellitus with diabetic peripheral angiopathy without gangrene; Z95.5 Presence of coronary angioplasty implant and graft; Z79.4 Long term (current) use of insulin; E66.9 Obesity, unspecified; Z68.29 Body mass index [BMI] 29.0-29.9, adult; E11.65 Type 2 diabetes mellitus with hyperglycemia; I11.0 Hypertensive heart disease with heart failure; Y93.9 Activity, unspecified; Z79.01 Long term (current) use of anticoagulants; Z79.899 Other long term (current) drug therapy; I65.23 Occlusion and stenosis of bilateral carotid arteries
CPT/HCPCS: G0379; 36415; 70450; 71275; 74018; 78452; 80048; 80053; 81001; 82150; 82962; 83605; 83690; 83735; 84100; 84436; 84443; 84479; 84484; 85025; 85347; 87040; 87636; 92928; 92929; 92978; 92979; 93005; 93017; 93018; 93306; 93308; 93454; 97110; 97163; 97165; 97530; 99152; 99153; A9502; C1725; C1769; C1876; C1894; C9600; C9601; J0282; J0696; J1644; J2405; J2785; J7060; Q9967

== ENCOUNTER 2023-10-12 15:26 | Observation (INO) | payer MEDICARE, OTHER, SELFPAY ==
[2023-10-12 15:30] VITALS: BP 147/74; PULSE 75; RESP 24; TEMP 36.9; O2SAT 90; BMI 29.0
--- NOTE | 2023-10-12 15:41 | ECG_ITS ---
APPROVED REPORT Exam: Resting ECG HR:75 bpm ECG Measurements Heart Rate 75 AXES OH 142 P 51 QRSd 134 QRS -2 QT 437 T 81 QTc 466 Conclusion SINUS RHYTHM LEFT BUNDLE BRANCH BLOCK [120+ ms QRS DURATION, 80+ ms Q/S IN V1/V2, 85+ ms R IN I/aVL/V5/V6] ABNORMAL ECG UNCONFIRMED REPORT Electronically signed by : ADOLFO BOLAÑOS, 10/14/2023 06:06:43
--- NOTE | 2023-10-12 15:46 | XR_ITS ---
FINAL REPORT TECHNIQUE: Single view chest CLINICAL HISTORY: SOA, CHEST PAIN FINDINGS: A single view of the chest was obtained. The heart and mediastinum are within normal limits. There are bilateral opacities, right greater than left worrisome for pneumonia. There is no pneumothorax. Osseous structures are unremarkable. IMPRESSION: Bilateral opacities, right greater than left worrisome for pneumonia. Reviewed, Interpreted and Dictated by Giovanny Rebolledo III, MD Transcribed by Bushra Mast Authenticated and [facility]
--- NOTE | 2023-10-12 15:49 | ED_ITS ---
I was consulted by the FRANCISCO, and we discussed the complexity of the problems being addressed. I approved the treatment and management plan for this patient's care in the emergency department, thus performing a substantive portion of the medical decision making. Marichuy Christensen MD, ELENO, FACEP Discharge Plan Disposition Patient Disposition: Admitted Condition: Serious Prescriptions Prescriptions: No Action atorvastatin 80 mg tablet 80 mg PO DAILY lisinopril 10 mg tablet 10 mg PO DAILY (DME) pen needle, diabetic [Droplet Pen Needle] 31 gauge x 5/16 needle See Rx Instructions .ROUTE .MEDSUPPLY Qty: 1200 Rx Instructions: As directed (DME) Accu-Chek Amanda Plus test strp Strip See Rx Instructions .ROUTE .MEDSUPPLY Qty: 10 Rx Instructions: As directed clopidogrel 75 mg tablet 75 mg PO DAILY (DME) lancets [Accu-Chek Softclix Lancets] Misc See Rx Instructions .ROUTE .MEDSUPPLY Qty: 100 Rx Instructions: As directed metformin 1,000 MG tablet 1,000 mg PO BID ergocalciferol (vitamin D2) 10 mcg (400 unit) Tablet 10 mcg PO BID vitamin G01-inwda acid 500-400 mcg Tablet 1 tab PO DAILY Rx Instructions: administer with a meal aspirin 81 mg Capsule 81 mg PO DAILY ondansetron HCl 4 mg tablet 4 mg PO Q6 insulin glargine [Lantus Solostar U-100 Insulin] 100 unit/mL (3 mL) insulin pen 40 unit SQ HS acetaminophen 325 mg Tablet 650 mg PO Q4HP PRN (Reason: Fever Or Mild Pain (1-3)) Qty: 0 0RF polyethylene glycol 3350 [Miralax] 17 gram Powder In Packet 17 g PO DAILY Qty: 0 0RF amiodarone 200 mg Tablet 400 mg PO BID Qty: 0 0RF famotidine 20 mg Tablet 20 mg PO BID Qty: 0 0RF metoprolol tartrate 50 mg Tablet 50 mg PO QID Qty: 0 0RF insulin lispro [Humalog U-100 Insulin] 100 unit/mL Solution 0 unit SQ ACHS Qty: 0 0RF oxycodone 5 mg Tablet 5 mg PO Q4HP PRN (Reason: Moderate Pain (4-6)) Qty: 30 0RF Jardiance 10 mg Tablet 10 mg PO DAILY Qty: 0 0RF sennosides-docusate sodium [Stimulant Laxative Plus] 8.6-50 mg Tablet 1 tab PO BIDP PRN (Reason: Constipation) Qty: 0 0RF spironolactone 25 mg Tablet 25 mg PO DAILY Qty: 0 0RF Eliquis 5 mg tablet 5 mg PO BID Qty: 60 0RF promethazine 12.5 mg tablet 12.5 mg PO Q6H PRN (Reason: allergy symptoms) Qty: 30 0RF Rx Instructions: 3 doses during day; last dose no later than 4 hr before bedtime ferrous sulfate 325 mg (65 mg iron) tablet 325 mg PO BID Qty: 60 0RF Referrals Follow up/Referrals: Cosme Garcia MD [Primary Care Provider] - See instructions Clinical Impressions Clinical Impression: Acute hypoxemic respiratory failure Pulmonary edema Qualifiers: Chronicity: acute Qualified Code(s): J81.0 - Acute pulmonary edema Discharge ED Provider: Marichuy Christensen HPI <MUNA Khan - Last Filed: 10/12/23 19:17> General Chief Complaint: Shortness of Breath/Dyspnea Stated Complaint: soa Time Seen by Provider: 10/12/23 15:49 Mode of Arrival: Wheelchair Source of Information: Patient Limitations: No Limitations Description of Symptoms (Recalled from ER Triage Doc. by RN): short of breath since last night. History of Present Illness HPI narrative: Patient presents from acute rehab for dyspnea that began last night. Patient was admitted to this facility recently for a fall that resulted in comminuted fracture of her left patella. She has a known cardiovascular history as well as since admitted diabetes mellitus and pulmonary fibrosis. She had a episode of atrial fibrillation RVR that was unresponsive to Cardizem and then transition to amiodarone which converted her to a normal sinus rhythm. She then underwent echo which showed ejection fraction of 45% and findings concerning for ischemia. Then she underwent heart cath during this admission with placement of 3 stents in the LAD. Her surgery was postponed given that she needed to be on anticoagulants for 30 days with reevaluation at the end of that timeframe with orthopedics scheduled. Patient reports that last night she began having shortness of breath after her rehab appointment. Patient arrives not in a knee brace. She states that she can now not lay flat without worsening of her shortness of breath. Activity makes shortness of breath worse. She denies however chest pain fever chills hemoptysis hematochezia melena vomiting diarrhea but does endorse some nausea. Related Data Home Medications Medication Instructions Recorded Confirmed metformin 1,000 mg tablet 1,000 mg PO BID Diabetes 01/02/21 10/01/23 atorvastatin 80 mg tablet 80 mg PO DAILY Cholesterol 02/03/22 10/01/23 blood sugar diagnostic (Accu-Chek #10 ea 02/03/22 10/01/23 Amanda Plus test strips) clopidogrel 75 mg tablet 75 mg PO DAILY Blood Thinner 02/03/22 10/01/23 lancets (Accu-Chek Softclix #100 ea 02/03/22 10/01/23 Lancets) lisinopril 10 mg tablet 10 mg PO DAILY bp 02/03/22 10/01/23 pen needle, diabetic 31 gauge x #1,200 ea 02/03/22 10/01/2312/23 (Droplet Pen Needle) aspirin 81 mg capsule 81 mg PO DAILY Blood Thinner 06/29/23 10/01/23 ergocalciferol (vitamin D2) 10 mcg 10 mcg PO BID Supplement 06/29/23 10/01/23 (400 unit) tablet vitamin B12 500 mcg-folic acid 400 1 tab PO DAILY Supplement 06/29/23 10/01/23 mcg tablet insulin glargine 100 unit/mL (3 40 unit SQ HS 10/01/23 10/01/23 mL) subcutaneous pen (Lantus Solostar U-100 Insulin) ondansetron HCl 4 mg tablet 4 mg PO Q6 10/01/23 10/01/23 Previous Rx's Medication Instructions Recorded acetaminophen 325 mg tablet 650 mg PO Q4HP PRN Fever Or Mild 10/09/23 Pain (1-3) #0 tabs amiodarone 200 mg tablet 400 mg PO BID #0 tabs 10/09/23 apixaban 5 mg tablet (Eliquis) 5 mg PO BID #60 tabs 10/09/23 empagliflozin 10 mg tablet 10 mg PO DAILY #0 tabs 10/09/23 (Jardiance) famotidine 20 mg tablet 20 mg PO BID #0 tabs 10/09/23 ferrous sulfate 325 mg (65 mg 325 mg PO BID #60 tabs 10/09/23 iron) tablet insulin lispro 100 unit/mL 0 unit (0 mL) SQ ACHS #0 mL 10/09/23 subcutaneous solution (Humalog U-100 Insulin) metoprolol tartrate 50 mg tablet 50 mg PO QID #0 tabs 10/09/23 oxycodone 5 mg tablet 5 mg PO Q4HP PRN Moderate Pain 10/09/23 (4-6) #30 tabs polyethylene glycol 3350 17 gram 17 g PO DAILY #0 ea 10/09/23 oral powder packet (Miralax) promethazine 12.5 mg tablet 12.5 mg PO Q6H PRN allergy 10/09/23 symptoms #30 tabs sennosides 8.6 mg-docusate sodium 1 tab PO BIDP PRN Constipation #0 10/09/23 50 mg tablet (Stimulant Laxative tabs Plus) spironolactone 25 mg tablet 25 mg PO DAILY #0 tabs 10/09/23 Allergies Allergy/AdvReac Type Severity Reaction Status Date / Time No Known Allergies Allergy Verified 09/25/23 17:56 PFSH <MUNA Khan - Last Filed: 10/12/23 19:17> PFS Disclaimer: The information contained in this section may have been updated after the patient was seen, as this information can be updated by other users. Medical History (Updated 10/12/23 @ 18:40 by MUNA Khan) Cerebrovascular accident Diabetes mellitus History of TIA (transient ischemic attack) Hyperlipidemia Hypertensive cardiovascular disease Vocal cord paralysis Surgical History (Updated 10/07/23 @ 08:18 by MUNA Muro) History of carotid endarterectomy History of colonoscopy Family History Other Coronary artery disease Diabetes Heart attack Hyperlipidemia Hypertension Stroke Social History (Updated 10/01/23 @ 13:17 by Yazmin Medrano, GIOVANNI) Smoking Status: Never smoker alcohol intake: never substance use type: denies use current occupational status: retired Travel in the last 8 weeks: None household members: family housing: house current occupational exposures/hazards: No caffeine: Yes <MUNA Khan - Last Filed: 10/12/23 19:17> ROS Obtained: Yes Systems reviewed as appropriate & no additional complaints except as documented Physical Exam <MUNA Khan - Last Filed: 10/12/23 19:17> General General appearance: alert and in no apparent distress Head Head exam: atraumatic and normal inspection Eye Eye exam: Present normal appearance, PERRL and EOMI ENT ENT exam: Present normal exam, normal oropharynx and mucous membranes moist Neck Neck exam: Present normal inspection and full ROM; Absent lymphadenopathy Chest Chest inspection: Present normal inspection and symmetric chest wall rise Respiratory Respiratory exam: Absent normal lung sounds bilaterally (Patient has diminished air entry and breath sounds are diminished right greater than left. Patient has faint end expiratory wheeze again right greater than left), respiratory distress or accessory muscle use Cardiovascular Cardiovascular exam: Present regular rate, normal rhythm, normal heart sounds, +S1 and +S2 Abdominal Exam Abdominal exam: Present soft (Obese) and normal bowel sounds; Absent tenderness, guarding or rebound Extremities Exam Extremities exam: Present normal inspection and normal capillary refill; Absent full ROM (3 unaffected extremities have full range of motion on exam. The left lower extremity has diminished range of motion due to the fracture of her kneecap.) or edema Neurological Exam Neurological exam: Present alert and oriented X3 Psychiatric Psychiatric exam: Present normal affect and normal mood Skin Skin exam: Present warm, dry and normal color HEART Score <MUNA Khan - Last Filed: 10/12/23 19:17> HEART Score HEART Score assessment performed?: Yes History (anamnesis): Moderately suspicious ECG: Non-specific disturbance Age: >65 years Risk factors: Atherosclerosis history Troponin: > 3x normal limit HEART Score: 8 <Marichuy Christensen MD - Last Filed: 10/12/23 17:51> Miscellaneous Procedure Procedure Performed: Limited cardiac ultrasound Indication: Dyspnea Identified structures: The heart was visualized in the parasternal long axis, parastenal short axis, apical four chamber and subxyphiod views. The IVC was visualized in the short axis and long axis at its entry into the right atrium. Findings: Normal LVEF no significant moderate or severely depressed EF no severe right heart strain no pericardial effusion Impression: As above Images were saved to permanent archive The study was technically adequate CPT: 40477-95 This study was performed by me, and I personally interpreted all images/videos. Based on my clinical judgement, these images were adequate and did not necessitate further imaging. Limited lung ultrasound A focused ultrasound exam of the pleural spaces was performed to evaluate for pneumothorax, pulmonary edema, pleural effusion and/or consolidation. The ultrasound was performed with the following indications, as noted in the H&P: Dyspnea Identified structures: Right and left thoracic cavities were examined. Findings: Lung sliding present throughout there are B-lines in all lung kuhn no pleural effusions noted bilaterally no evidence of consolidation Impression: B-lines throughout all lung kuhn consistent with pulmonary edema Images are saved to permanent archive The study was technically adequate CPT 23686-72 This study was performed by me, and I personally interpreted all images/videos. Based on my clinical judgement, these images were adequate and did not necessitate further imaging. Critical Care <MUNA Khan - Last Filed: 10/12/23 19:17> Critical Care Time Critical Care Time: Yes Attestation: On 10/12/23, the high probability of a clinically significant, sudden or life threatening deterioration of the following system(s) required my full and direct attention, intervention and personal management. The time I documented below is in addition to time spent performing reported procedures but includes the following listed in this critical care notation. Total Time Total Critical Care Time: 45 Medical Decision Making <MUNA Khan - Last Filed: 10/12/23 19:17> Medical Records Medical records reviewed: Yes I reviewed the patient's medical records. Dae Marcos Pt receiving controlled substance: No Vital Signs Vital Signs: 10/12/23 15:30 10/12/23 18:30 10/12/23 19:02 Temperature 98.5 F Temperature Source Oral Pulse Rate 65 76 Pulse Rate [Right Radial] 75 Respiratory Rate 24 20 Blood Pressure 142/59 H 150/76 H Blood Pressure [Right Arm] 147/74 H Blood Pressure Mean 86 Blood Pressure Mean [Right Arm] 98 02 Sat by Pulse Oximetry 90 L 94 L 98 Oxygen Delivery Method Room Air Nasal Cannula Oxygen Flow Rate (LPM) 2.5 Lab Data Lab results reviewed: Yes I reviewed the patient's lab results. Labs: Lab Results 10/12/23 15:58: WBC 11.6 H, RBC 3.23 L, Hgb 10.4 L, Hct 31.6 L, MCV 97.7, MCH 32.2 H, MCHC 33.0, RDW 14.7, Plt Count 549 H, MPV 8.7, Neut % (Auto) 71.9, Lymph % (Auto) 18.3, [place] % (Auto) 6.1, Eos % (Auto) 2.9, Baso % (Auto) 0.7, Neut # (Auto) 8.3 H, Lymph # (Auto) 2.1, [place] # (Auto) 0.7, Eos # (Auto) 0.3, Baso # (Auto) 0.1, PT 11.9, INR 1.10, D-Dimer 0.71 H, Sodium 144, Potassium 4.5, Chloride 106, Carbon Dioxide 26, Anion Gap 16.5 H, BUN 19 H, Creatinine 1.10 H, Estimated Creat Clear 53, Estimated GFR 49 L, Est GFR ( Amer) 59, Glucose 125 H, Calcium 8.5, Troponin I 0.27 H, NT-Pro-B Natriuret Pep 3340 H, SARS-CoV-2 (PCR) Not detected, Influenza A Untype (PCR) Not detected, Influenza Type B (PCR) Not detected 10/12/23 15:58 10/12/23 15:58 Response Orders (Tests/Meds): ED MEDICATIONS Generic Name Dose Route Start Last Admin Trade Name Freq PRN Reason Stop Dose Admin Acetaminophen 650 mg 10/12/23 18:48 Acetaminophen 325mg Tab PO 11/11/23 18:47 Q6HP PRN Fever or Mild Pain (1-3) Sodium Chloride 10 ml 10/12/23 15:46 Sodium Chloride 0.9% 10ml Flush Syringe IV 11/11/23 15:45 NEEDED PRN Maintain IV Site Discontinued Medications Generic Name Dose Route Start Last Admin Trade Name Freq PRN Reason Stop Dose Admin Albuterol/Ipratropium 3 ml 10/12/23 16:14 10/12/23 16:50 Ipratropium/Albuterol 3 Ml Neb IH 10/12/23 16:15 3 ml ONCE ONE Administration Furosemide 80 mg 10/12/23 16:35 10/12/23 16:50 Furosemide 40mg/4ml Vial IV 10/12/23 16:36 80 mg ONCE ONE Administration Iopamidol 70 ml 10/12/23 18:03 10/12/23 18:07 Iopamidol-370 (76%);100ml Bottle IV 10/12/23 18:04 70 ml ONCE ONE Administration Sodium Chloride 10 ml 10/12/23 18:03 10/12/23 18:07 Sodium Chloride 0.9% 10ml Syr (Rad Only) IV 10/12/23 18:04 10 ml ONCE ONE Administration Sodium Chloride 50 ml 10/12/23 18:03 10/12/23 18:07 0.9 % Sodium Chloride 50 Ml Vial IV 10/12/23 18:04 50 ml ONCE ONE Administration ORDERS Category Date Time Status CTA Chest [CT angio chest PE protocol] Stat Cat Scan 10/12/23 17:03 Completed POCUS Point of Care (ER Only) Stat Exams 10/12/23 17:31 Taken XR chest portable Stat Exams 10/12/23 15:46 Completed BMP [Basic Metabolic Panel] AMLAB Lab 10/13/23 06:00 Ordered BNP [Brain Natriuretic Peptide] Stat Lab 10/12/23 15:58 Completed Basic Metabolic Panel Stat Lab 10/12/23 15:58 Completed Complete Blood Count Auto Diff Stat Lab 10/12/23 15:58 Completed D-Dimer Stat Lab 10/12/23 15:58 Completed INR [Prothrombin Time INR] Stat Lab 10/12/23 15:58 Completed Rapid PCR Covid and Flu A/B Stat Lab 10/12/23 15:58 Completed Troponin I Q3H Lab 10/12/23 19:00 Ordered Troponin I Q3H Lab 10/12/23 22:00 Ordered Troponin I Stat Lab 10/12/23 15:58 Completed MDM Narrative Medical Decision Narrative: In summary patient is a 73-year-old female who presents to the emergency department for evaluation of dyspnea. Patient tells me that she has no cardiopulmonary history despite being in the hospital with a recent heart cath and findings of pulmonary fibrosis on her imaging. Additionally patient suffered a concussion and comminuted fracture of her left patella. Patient is normotensive normal heart rate but significantly hypoxic on arrival in the 80s but afebrile. Physical exam is remarkable for diminished air entry and some late end expiratory wheezes but no accessory muscle use. Patient has no dependent edema noted. Patient is in normal sinus rhythm on the monitor. Differential diagnosis includes volume overload versus overt CHF versus PE versus infection (viral or bacterial). Initial workup will be conducted with hematologic labs twelve-lead EKG plain film chest x-ray COVID and flu swabs.. Initial interventions include DuoNeb, 80 of Lasix. Initial workup reviewed by me shows an elevated NT proBNP elevated troponin negative and a D-dimer of 0.71. My informal interpretation of plain film chest x-ray shows significant bilateral pleural edema right greater than left in comparison to prior. My informal interpretation of her CTA PE protocol does not show any evidence of thrombus but does show bilateral pleural effusions pulmonary edema radiologist read pending. I discussed patient management with Dr. Granger of cardiology and we agreed that this patient management would be to admit patient to the hospital and diurese her with cardiology evaluation in the morning. I then discussed patient with Dr. Giron who is on-call for Dr. Garcia patient's PCP <Marichuy Christensen MD - Last Filed: 10/12/23 17:51> Vital Signs Vital Signs: 10/12/23 15:30 10/12/23 18:30 10/12/23 19:02 Temperature 98.5 F Temperature Source Oral Pulse Rate 65 76 Pulse Rate [Right Radial] 75 Respiratory Rate 24 20 Blood Pressure 142/59 H 150/76 H Blood Pressure [Right Arm] 147/74 H Blood Pressure Mean 86 Blood Pressure Mean [Right Arm] 98 02 Sat by Pulse Oximetry 90 L 94 L 98 Oxygen Delivery Method Room Air Nasal Cannula Oxygen Flow Rate (LPM) 2.5 Lab Data Labs: Lab Results 10/12/23 15:58: WBC 11.6 H, RBC 3.23 L, Hgb 10.4 L, Hct 31.6 L, MCV 97.7, MCH 32.2 H, MCHC 33.0, RDW 14.7, Plt Count 549 H, MPV 8.7, Neut % (Auto) 71.9, Lymph % (Auto) 18.3, [place] % (Auto) 6.1, Eos % (Auto) 2.9, Baso % (Auto) 0.7, Neut # (Auto) 8.3 H, Lymph # (Auto) 2.1, [place] # (Auto) 0.7, Eos # (Auto) 0.3, Baso # (Auto) 0.1, PT 11.9, INR 1.10, D-Dimer 0.71 H, Sodium 144, Potassium 4.5, Chlori de 106, Carbon Dioxide 26, Anion Gap 16.5 H, BUN 19 H, Creatinine 1.10 H, Estimated Creat Clear 53, Estimated GFR 49 L, Est GFR ( Amer) 59, Glucose 125 H, Calcium 8.5, Troponin I 0.27 H, NT-Pro-B Natriuret Pep 3340 H, SARS-CoV-2 (PCR) Not detected, Influenza A Untype (PCR) Not detected, Influenza Type B (PCR) Not detected Response Orders (Tests/Meds): ED MEDICATIONS Generic Name Dose Route Start Last Admin Trade Name Freq PRN Reason Stop Dose Admin Acetaminophen 650 mg 10/12/23 18:48 Acetaminophen 325mg Tab PO 11/11/23 18:47 Q6HP PRN Fever or Mild Pain (1-3) Sodium Chloride 10 ml 10/12/23 15:46 Sodium Chloride 0.9% 10ml Flush Syringe IV 11/11/23 15:45 NEEDED PRN Maintain IV Site Discontinued Medications Generic Name Dose Route Start Last Admin Trade Name Freq PRN Reason Stop Dose Admin Albuterol/Ipratropium 3 ml 10/12/23 16:14 10/12/23 16:50 Ipratropium/Albuterol 3 Ml Neb IH 10/12/23 16:15 3 ml ONCE ONE Administration Furosemide 80 mg 10/12/23 16:35 10/12/23 16:50 Furosemide 40mg/4ml Vial IV 10/12/23 16:36 80 mg ONCE ONE Administration Iopamidol 70 ml 10/12/23 18:03 10/12/23 18:07 Iopamidol-370 (76%);100ml Bottle IV 10/12/23 18:04 70 ml ONCE ONE Administration Sodium Chloride 10 ml 10/12/23 18:03 10/12/23 18:07 Sodium Chloride 0.9% 10ml Syr (Rad Only) IV 10/12/23 18:04 10 ml ONCE ONE Administration Sodium Chloride 50 ml 10/12/23 18:03 10/12/23 18:07 0.9 % Sodium Chloride 50 Ml Vial IV 10/12/23 18:04 50 ml ONCE ONE Administration ORDERS Category Date Time Status CTA Chest [CT angio chest PE protocol] Stat Cat Scan 10/12/23 17:03 Completed POCUS Point of Care (ER Only) Stat Exams 10/12/23 17:31 Taken XR chest portable Stat Exams 10/12/23 15:46 Completed BMP [Basic Metabolic Panel] AMLAB Lab 10/13/23 06:00 Ordered BNP [Brain Natriuretic Peptide] Stat Lab 10/12/23 15:58 Completed Basic Metabolic Panel Stat Lab 10/12/23 15:58 Completed Complete Blood Count Auto Diff Stat Lab 10/12/23 15:58 Completed D-Dimer Stat Lab 10/12/23 15:58 Completed INR [Prothrombin Time INR] Stat Lab 10/12/23 15:58 Completed Rapid PCR Covid and Flu A/B Stat Lab 10/12/23 15:58 Completed Troponin I Q3H Lab 10/12/23 19:00 Ordered Troponin I Q3H Lab 10/12/23 22:00 Ordered Troponin I Stat Lab 10/12/23 15:58 Completed
--- NOTE | 2023-10-12 16:01 | PC.NURSE ---
saturation 87% on ra and pt is symptomatic. placed on 2lnc sat is now 93%
[2023-10-12 16:16] LABS: Basophils # 0.1 K/mm3 (0-0.2); Basophils % 0.7 % (0.1-2.0); Eosinophils # 0.3 K/mm3 (0.0-0.4); Eosinophils % 2.9 % (0.1-12.0); Hematocrit 31.6 % (37.0-47.0); Hemoglobin 10.4 g/dL (12.2-16.2); Lymphocytes # 2.1 K/mm3 (0.7-4.5); Lymphocytes % 18.3 % (10-50); Mean Corpuscular Hemoglobin 32.2 pg (27.0-31.2); Mean Corpuscular Volume 97.7 fl (81-99); Mean Platelet Volume 8.7 fl (7.4-10.4); Monocytes # 0.7 K/mm3 (0.1-1.0); Monocytes % 6.1 % (1.7-9.3); Neutrophils # 8.3 K/mm3 (1.8-7.8); Neutrophils % 71.9 % (37.0-80.0); Platelet Count 549 K/mm3 (142-424); Red Blood Count 3.23 M/mm3 (4.20-5.40); Red Cell Distribution Width 14.7 % (11.5-17.5); White Blood Count 11.6 K/mm3 (4.8-10.8)
[2023-10-12 16:49] LABS: Anion Gap 16.5 mEq/L (5-15); Blood Urea Nitrogen 19 mg/dl (7-17); Carbon Dioxide 26 mmol/L (22.0-30.0); Chloride 106 mmol/L (98-107); Potassium 4.5 mmoL/L (3.5-5.1); Sodium 144 mmol/L (136-145)
[2023-10-12 16:50] LABS: Calcium 8.5 mg/dl (8.4-10.2); Creatinine Clearance Estimated 53 mL/min (50-200); Estimated Glomerular Filt Rate 49 ml/min (>60); GFR (African American) 59 ML/MIN (>60); Glucose 125 mg/dl (74-100)
[2023-10-12] MEDS: IPRATROPIUM/ALBUTEROL 3 ML NEB IH (16:50)
[2023-10-12] MEDS: FUROSEMIDE 40MG/4ML VIAL 80 MG IV (16:50)
[2023-10-12 16:55] LABS: D-Dimer 0.71 ug/mL (0.0-0.5)
[2023-10-12 16:58] LABS: NT Pro Brain Natriuretic Pep. 3340 pg/mL (0-125)
[2023-10-12 17:01] LABS: Coronavirus 19, PCR Not Detected (NotDetected); Influenza A, PCR Not Detected (NotDetected); Influenza B, PCR Not Detected (NotDetected)
--- NOTE | 2023-10-12 17:03 | CT_ITS ---
PROCEDURE INFORMATION: Exam: CTA Chest With Contrast Exam date and time: 10/12/2023 5:55 PM Age: 73 years old Clinical indication: Shortness of breath; Additional info: Recent pci with stents, acute hypoxemic resp failu TECHNIQUE: Imaging protocol: Computed tomographic angiography of the chest with contrast. Exam focused on the arteries. 3D rendering (Not supervised by radiologist): MIP and/or 3D reconstructed images were created by the technologist. Radiation optimization: All CT scans at this facility use at least one of these dose optimization techniques: automated exposure control; mA and/or kV adjustment per patient size (includes targeted exams where dose is matched to clinical indication); or iterative reconstruction. Contrast material: ISOVUE 370; Contrast volume: 70 ml; Contrast route: INTRAVENOUS (IV); COMPARISON: 1. CT ANGIO CHEST PE PROTOCOL 10/04/2023 9:20 PM 2. CR XR CHEST PORTABLE 10/12/2023 3:48 PM 3. CR XR CHEST PORTABLE 01/01/2021 10:59 PM FINDINGS: Pulmonary arteries: There is no evidence for clinically relevant pulmonary arterial filling defect. Tiny distal filling defects may be present but are of dubious clinical significance. Aorta: Unremarkable. No aortic aneurysm. No aortic dissection. Lungs: Compressive atelectasis of the lower lobes. Central ground-glass opacities in both lungs as can be seen in viral pneumonitis and edema among other etiologies. Pleural spaces: Small to moderate right and small left pleural effusions. Heart: Unremarkable. No cardiomegaly. No pericardial effusion. Coronary arteries: There is moderate coronary atherosclerotic disease/calcification although evaluation is limited secondary to the non gated nature of the study. Lymph nodes: There are mildly prominent mediastinal lymph nodes which are nonenlarged. Bones/joints: Unremarkable. No acute fracture. Soft tissues: Unremarkable. Other findings: Scattered tiny nodules are new from recent prior and most likely inflammatory. Motion artifact mildly limits evaluation. IMPRESSION: 1. Small to moderate right and small left pleural effusions. 2. Central ground-glass opacities in both lungs as can be seen in viral pneumonitis and edema among other etiologies. 3. No evidence for clinically relevant pulmonary arterial filling defect.
--- NOTE | 2023-10-12 17:11 | PC.NURSE ---
LAB CALLED WITH CRITICAL TROP 0.27 DR RUVALCABA NOTIFIED
[2023-10-12 17:13] LABS: Troponin I 0.27 ng/ml (0.00-0.034)
[2023-10-12 17:32] LABS: Prothrombin Time 11.9 seconds (10.1-12.5)
[2023-10-12] MEDS: SODIUM CHLORIDE 0.9% 10ML SYR (RAD ONLY) 10 ML IV (18:07)
[2023-10-12] MEDS: IOPAMIDOL-370 (76%);100ML BOTTLE 70 ML IV (18:07)
[2023-10-12] MEDS: 0.9 % SODIUM CHLORIDE 50 ML VIAL IV (18:07)
--- NOTE | 2023-10-12 18:13 | PC.NURSE ---
dr abreu speaking with dr diaz
--- NOTE | 2023-10-12 18:17 | PC.NURSE ---
dr abreu at bedside to update pt and family
[2023-10-12 18:30] VITALS: BP 142/59; PULSE 65; RESP 20; O2SAT 94
--- NOTE | 2023-10-12 18:30 | PC.NURSE ---
DR RUVALCABA HAS ATTEMPTED TO REACH DR ROACH FOR ADMISSION, STATES HE WILL CALL BACK
--- NOTE | 2023-10-12 18:37 | PC.NURSE ---
DR IGNACIO LIMON
[2023-10-12 19:02] VITALS: BP 150/76; PULSE 76; O2SAT 98
--- NOTE | 2023-10-12 19:02 | PC.NURSE ---
Pt assisted to bathroom with use of wheelchair Pt family mentioned concern about redness on pt right arm around elbow. Dr. Christensen notified of this. Call light within reach
--- NOTE | 2023-10-12 19:20 | PC.NURSE ---
rounded on patient, asking about bed placement
--- NOTE | 2023-10-12 19:30 | PC.NURSE ---
[employer] NOTIFIED OF ADMISSION
--- NOTE | 2023-10-12 19:33 | PC.NURSE ---
Notified at 1929 need for bed. Charge notified need for bed. 213 assigned. Registration notified.
[2023-10-12 19:45] VITALS: BP 150/76; PULSE 76; RESP 22; TEMP 36.9; O2SAT 98
--- NOTE | 2023-10-12 20:32 | PC.NURSE ---
Patient arrived to floor via wheelchair from ED at 19:50.
[2023-10-12 21:06] LABS: Troponin I 0.25 ng/ml (0.00-0.034)
[2023-10-12 22:43] LABS: POC Glucose,Bedside 165 (70-110)
[2023-10-12] MEDS: AMIODARONE 200MG TABLET 400 MG PO (22:55)
[2023-10-12] MEDS: FAMOTIDINE 20MG TABLET 20 MG PO (22:55)
[2023-10-12] MEDS: METFORMIN 500MG TABLET 1000 MG PO (22:55)
[2023-10-12] MEDS: FERROUS SULFATE 325MG TABLET 325 MG PO (22:55)
[2023-10-12] MEDS: ATORVASTATIN 40MG TABLET 80 MG PO (22:55)
[2023-10-12] MEDS: METOPROLOL TARTRATE 50MG TABLET 50 MG PO (22:55)
[2023-10-12] MEDS: APIXABAN 5MG TABLET 5 MG PO (22:55)
[2023-10-13] VITALS (7 sets, daily range): BP systolic 116–137; BP diastolic 67–75; PULSE 68–80; RESP 16–22; TEMP 36.2–36.8; O2SAT 91–100; BMI 29.0
--- NOTE | 2023-10-13 05:44 | PC.NURSE ---
Addendum entered by LENCHO Mcdonnell 10/13/23 06:17: When checking blood glucose, pt stated she did vomit one time in the night. One emesis bag in the trash noted, little output from observation. Empty emesis bag at the bedside. Noticed something on gown, pt stated she dropped chocolate pudding on it, no need to change gown at the moment as pt wishes to sleep. Original Note: Pt is alert and oriented. Pt using bedside commode. On 2.5L NC, O2 sat >90%. Pt has had good output. No complaints of soa or chest pain. Pt nausea one time, but states this was from taking her medication. Call light in reach.
[2023-10-13 06:08] LABS: POC Glucose,Bedside 141 (70-110)
[2023-10-13 06:47] LABS: Anion Gap 10.9 mEq/L (5-15); Blood Urea Nitrogen 21 mg/dl (7-17); Calcium 8.3 mg/dl (8.4-10.2); Carbon Dioxide 34 mmol/L (22.0-30.0); Chloride 101 mmol/L (98-107); Creatinine Clearance Estimated 53 mL/min (50-200); Estimated Glomerular Filt Rate 49 ml/min (>60); GFR (African American) 59 ML/MIN (>60); Glucose 131 mg/dl (74-100); Potassium 3.9 mmoL/L (3.5-5.1); Sodium 142 mmol/L (136-145)
--- NOTE | 2023-10-13 07:39 | HMH.PHAINT1 ---
Pharmacy Intervention Comments: Verified home medications using external fill history and provider notes from previous visit.
--- NOTE | 2023-10-13 08:57 | SW/DCPLANNER ---
Addendum entered by Amanda Redman RN 10/15/23 13:52: Patient will discharge home with Home Health today. Agreeable to [facility], patient choice signed and placed on chart. Per Anjana with [facility], services will begin this weekend. Original Note: This patient currently resides at [facility] level of care. I will continue to follow up w/ Jody at [facility] until medically stable for discharge. Discharge date is unknown at this time.
--- NOTE | 2023-10-13 09:06 | P.HP_ITS ---
History of Present Illness *Admission Date: 10/13/23 *Reason for visit:: Shortness of breath *History of present illness: Ms. Fernandez is a 73-year-old female whose problems started after a fall at home on 09/25/2023. At this time she hit her head and fractured her left knee. She then developed nausea and vomiting along with the severe left knee pain and was eventually admitted to the hospital due to dehydration. She was hospitalized at [facility] from 10/01/2023 to 10/09/2023. During this period of time she had difficulty with nausea and vomiting. She also developed atrial fibrillation and converted after being initiated on an amiodarone drip. She eventually ended up having a cardiac cath with successful stenting with 3 stents. She was placed on Plavix and aspirin. After this she was told she would need to stay on the Plavix and aspirin for at least 30 days before she could have any surgery to her left knee. She was in a left knee brace. Due to care issues and mobility issues she was sent to rehab for some physical therapy and ongoing care. Patient states that on 10/11/2023 she developed some shortness of breath. This progressively worsened. She became anxious and therefore became more short of breath and it was a vicious cycle. She denied having any chest pain or palpitations. Eventually her family brought her to [facility] for evaluation at which time she was felt to be in pulmonary edema. She was given Lasix in the emergency room and admitted. At the time of this exam patient states she feels much better. She denies shortness of breath. She denies chest pain. She was able to sleep during the night. She did vomit 1 time after taking her medicine last p.m. but has had no further nausea and has not vomited since. She states she feels much better and plans to go home rather than back to rehab. She states she was able to walk without a walker or brace with physical therapy at [place] and did well. [facility] Disclaimer: The information contained in this section may have been updated after the patient was seen, as this information can be updated by other users. Medical History (Updated 10/13/23 @ 09:11 by Mira Drummond APRN) Atrial fibrillation with rapid ventricular response Cerebrovascular accident Closed fracture of left patella Diabetes mellitus History of TIA (transient ischemic attack) Hyperlipidemia Hypertensive cardiovascular disease Vocal cord paralysis Surgical History (Updated 10/13/23 @ 09:10 by Mira Drummond APRN) History of carotid endarterectomy History of colonoscopy Stented coronary artery Family History Diabetes Coronary artery disease Hyperlipidemia Heart attack Hypertension Stroke Social History (Updated 10/12/23 @ 21:01 by Renee Coleman RN) Smoking Status: Never smoker alcohol intake: never substance use type: denies use current occupational status: retired Travel in the last 8 weeks: None household members: family housing: house current occupational exposures/hazards: No caffeine: Yes Review of Systems Constitutional Constitutional: Denies body ache(s), Denies difficulty sleeping, Denies fever(s), Denies frequent falls, Denies headache(s) and Reports poor appetite Eyes Eyes: Denies change in vision ENT Ears, Nose, Mouth, and Throat: Denies abnormal hearing, Denies otalgia, Denies headache(s), Reports post nasal drip and Denies sore throat *Cardiovascular Cardiovascular: Denies chest pain, Reports dyspnea and Denies leg edema *Respiratory Respiratory: Reports chest congestion, Denies cough, Reports dyspnea and Denies hemoptysis *Gastrointestinal Gastrointestinal: Denies abdominal pain, Denies heartburn, Denies loose stools, Reports nausea and Reports vomiting (Due to some meds) *Genitourinary Genitourinary: Denies dysuria *Musculoskeletal Musculoskeletal: Reports abnormal gait and Reports arthralgias (Left knee which is much improved) *Neurologic Neurologic: Reports abnormal gait, Denies abnormal hearing, Denies frequent falls and Denies headache(s) Meds Home Medications and Allergies Home Medications Medication Instructions Recorded Confirmed Type metformin 1,000 mg tablet 1,000 mg PO BID 01/02/21 10/12/23 History atorvastatin 80 mg tablet 80 mg PO DAILY 02/03/22 10/12/23 History blood sugar diagnostic (Accu-Chek #10 ea 02/03/22 10/12/23 History Amanda Plus test strips) clopidogrel 75 mg tablet 75 mg PO DAILY 02/03/22 10/12/23 History lancets (Accu-Chek Softclix #100 ea 02/03/22 10/12/23 History Lancets) lisinopril 10 mg tablet 10 mg PO DAILY 02/03/22 10/12/23 History pen needle, diabetic 31 gauge x #1,200 ea 02/03/22 10/12/23 History 5/16 (Droplet Pen Needle) aspirin 81 mg capsule 81 mg PO DAILY 06/29/23 10/12/23 History ergocalciferol (vitamin D2) 10 mcg 10 mcg PO BID 06/29/23 10/12/23 History (400 unit) tablet vitamin B12 500 mcg-folic acid 400 1 tab PO DAILY Supplement 06/29/23 10/12/23 History mcg tablet insulin glargine 100 unit/mL (3 40 unit SQ HS 10/01/23 10/12/23 History mL) subcutaneous pen (Lantus Solostar U-100 Insulin) ondansetron HCl 4 mg tablet 4 mg PO Q6 10/01/23 10/12/23 History acetaminophen 325 mg tablet 650 mg PO Q4HP PRN Fever Or Mild 10/09/23 10/12/23 Rx Pain (1-3) #0 tabs amiodarone 200 mg tablet 400 mg PO BID #0 tabs 10/09/23 10/12/23 Rx apixaban 5 mg tablet (Eliquis) 5 mg PO BID #60 tabs 10/09/23 10/12/23 Rx empagliflozin 10 mg tablet 10 mg PO DAILY #0 tabs 10/09/23 10/12/23 Rx (Jardiance) famotidine 20 mg tablet 20 mg PO BID #0 tabs 10/09/23 10/12/23 Rx ferrous sulfate 325 mg (65 mg 325 mg PO BID #60 tabs 10/09/23 10/12/23 Rx iron) tablet insulin lispro 100 unit/mL 0 unit (0 mL) SQ ACHS #0 mL 10/09/23 10/12/23 Rx subcutaneous solution (Humalog U-100 Insulin) metoprolol tartrate 50 mg tablet 50 mg PO QID #0 tabs 10/09/23 10/12/23 Rx oxycodone 5 mg tablet 5 mg PO Q4HP PRN Moderate Pain 10/09/23 10/12/23 Rx (4-6) #30 tabs polyethylene glycol 3350 17 gram 17 g PO DAILY #0 ea 03/01/24 03/04/24 Rx oral powder packet (Miralax) promethazine 12.5 mg tablet 12.5 mg PO Q6H PRN allergy 10/09/23 10/12/23 Rx symptoms #30 tabs sennosides 8.6 mg-docusate sodium 1 tab PO BIDP PRN Constipation #0 10/09/23 10/12/23 Rx 50 mg tablet (Stimulant Laxative tabs Plus) spironolactone 25 mg tablet 25 mg PO DAILY #0 tabs 10/09/23 10/12/23 Rx New Prescriptions to Start Prescriptions: Allergies Allergy/AdvReac Type Severity Reaction Status Date / Time No Known Allergies Allergy Verified 09/25/23 17:56 Exam Data for Last 24 hours Vital signs and Labs for Last 24 Hours: Temp Pulse Resp BP Pulse Ox O2 Del Method O2 Flow Rate 98.0 F 69 17 116/67 98 Nasal Cannula 2.5 10/13/23 08:00 10/13/23 08:00 10/13/23 08:00 10/13/23 08:00 10/13/23 08:00 10/13/23 08:00 10/13/23 08:00 Laboratory Results - last 24 hr 10/12/23 15:58: WBC 11.6 H, RBC 3.23 L, Hgb 10.4 L, Hct 31.6 L, MCV 97.7, MCH 32.2 H, MCHC 33.0, RDW 14.7, Plt Count 549 H, MPV 8.7, Neut % (Auto) 71.9, Lymph % (Auto) 18.3, [place] % (Auto) 6.1, Eos % (Auto) 2.9, Baso % (Auto) 0.7, Neut # (Auto) 8.3 H, Lymph # (Auto) 2.1, [place] # (Auto) 0.7, Eos # (Auto) 0.3, Baso # (Auto) 0.1, PT 11.9, INR 1.10, D-Dimer 0.71 H, Sodium 144, Potassium 4.5, Chloride 106, Carbon Dioxide 26, Anion Gap 16.5 H, BUN 19 H, Creatinine 1.10 H, Estimated Creat Clear 53, Estimated GFR 49 L, Est GFR ( Amer) 59, Glucose 125 H, Calcium 8.5, Troponin I 0.27 H, NT-Pro-B Natriuret Pep 3340 H, SARS-CoV-2 (PCR) Not detected, Influenza A Untype (PCR) Not detected, Influenza Type B (PCR) Not detected 10/12/23 19:30: Troponin I 0.25 H 10/12/23 22:35: POC Glucose 165 H 10/13/23 05:58: POC Glucose 141 H 10/13/23 06:02: Sodium 142, Potassium 3.9, Chloride 101, Carbon Dioxide 34 H, Anion Gap 10.9, BUN 21 H, Creatinine 1.10 H, Estimated Creat Clear 53, Estimated GFR 49 L, Est GFR ( Amer) 59, Glucose 131 H, Calcium 8.3 L I & O for Last 24 hours: Intake & Output 10/10/23 10/11/23 10/12/23 10/13/23 11:59 11:59 11:59 11:59 Output Total 550 / 550 Balance -550 / -550 Weight 163 lb 15.995 oz Constitutional Constitutional: no acute distress Comments: sitting on bedside eating breakfast; appears comfortable *Routine HEENT Exam Head: Present normocephalic and atraumatic Eye: Present PERRL; Absent conjunctival icterus, scleral injection or conjunctivae pink ENT: Present mucous membranes moist and oropharynx clear *Routine Neck Exam Neck: Present supple; Absent carotid bruit, lymphadenopathy or thyromegaly Routine Chest/Breast/Axilla Exam Chest wall: Absent tenderness *Routine Respiratory Exam Respiratory: Present crackles (few bibasilar crackles) *Routine Cardiovascular Exam Cardiovascular: Present RRR *Routine Abdominal Exam Abdominal: Present soft and normoactive bowel sounds; Absent tenderness or distended *Routine Rectal Exam Rectal:: deferred *Routine Genitalia Exam Genitalia:: deferred *Routine Extremities Exam Extremities: Absent edema or calf tenderness *Routine Neurological Exam Neurological: Present alert, oriented X3 and normal speech; Absent altered mental status Assessment and Plan *Assessment and plan (1) Acute hypoxemic respiratory failure: Status: Acute Category: Medical Code(s): J96.01 - Acute respiratory failure with hypoxia (2) Pulmonary edema: Status: Acute Qualifiers: Chronicity: acute Qualified Code(s): J81.0 - Acute pulmonary edema Category: Medical Code(s): J81.1 - Chronic pulmonary edema (3) CAD (coronary artery disease): Status: Acute Category: Medical Code(s): I25.10 - Atherosclerotic heart disease of [place] coronary artery without angina pectoris (4) Closed fracture of left patella: Status: Acute Qualifiers: Encounter type: initial encounter Fracture alignment: displaced Fracture morphology: transverse Qualified Code(s): S82.032A - Displaced transverse fracture of left patella, initial encounter for closed fracture Category: Medical Code(s): S82.002A - Unspecified fracture of left patella, initial encounter for closed fracture (5) Obesity (BMI 30.0-34.9): Status: Chronic Category: Medical Code(s): E66.9 - Obesity, unspecified (6) Hypertensive cardiovascular disease: Status: Chronic Qualifiers: Heart failure presence: unspecified whether heart failure present Qualified Code(s): I11.9 - Hypertensive heart disease without heart failure Category: Medical Code(s): I11.9 - Hypertensive heart disease without heart failure (7) Hyperlipidemia: Status: Acute Qualifiers: Hyperlipidemia type: mixed hyperlipidemia Qualified Code(s): E78.2 - Mixed hyperlipidemia Category: Medical Code(s): E78.5 - Hyperlipidemia, unspecified (8) Diabetes mellitus: Status: Chronic Qualifiers: Diabetes mellitus complication status: with other specified complication Diabetes mellitus terminal clerk insulin use: unspecified terminal clerk insulin use status Diabetes mellitus type: type 2 Qualified Code(s): E11.69 - Type 2 diabetes mellitus with other specified complication Category: Medical Code(s): E11.9 - Type 2 diabetes mellitus without complications (9) Nausea and vomiting: Status: Acute Category: Medical Code(s): R11.2 - Nausea with vomiting, unspecified (10) Anemia: Status: Acute Category: Medical Code(s): D64.9 - Anemia, unspecified (11) Status post coronary artery stent placement: Status: Acute Category: Surgical Code(s): Z95.5 - Presence of coronary angioplasty implant and graft Plan continue with diuresis; Pt and family plan for her to go home for ongoing FU; CM to see about hinged knee brace Dr. Garcia entry - Saw patient, agree with above note. Attempt to wean from supplemental oxygen today.
[2023-10-13] MEDS: APIXABAN 5MG TABLET 5 MG PO ×2 (10:40→21:21)
[2023-10-13] MEDS: EMPAGLIFLOZIN 10MG TABLET 10 MG PO (10:40)
[2023-10-13] MEDS: FUROSEMIDE 40MG/4ML VIAL 40 MG IV (10:40)
[2023-10-13] MEDS: METFORMIN 500MG TABLET 1000 MG PO (10:40)
[2023-10-13] MEDS: SPIRONOLACTONE 25MG TABLET 25 MG PO (10:41)
[2023-10-13] MEDS: ASPIRIN EC 81MG TABLET 81 MG PO (10:41)
[2023-10-13] MEDS: AMIODARONE 200MG TABLET 400 MG PO ×2 (10:41→21:21)
[2023-10-13] MEDS: FAMOTIDINE 20MG TABLET 20 MG PO ×2 (10:41→21:21)
[2023-10-13] MEDS: CLOPIDOGREL 75MG TAB 75 MG PO (10:41)
[2023-10-13] MEDS: ONDANSETRON 4MG ODT 4 MG SL ×3 (10:42→23:45)
[2023-10-13 11:46] LABS: POC Glucose,Bedside 160 (70-110)
[2023-10-13] MEDS: humaLOG 100 UNITS/ML 3ML VIAL (SSI) SQ ×3 (12:03→21:22)
--- NOTE | 2023-10-13 14:06 | HMH.PTEV ---
Physical Therapy Evaluation Rehab PT IP Evaluation Start: 10/13/23 13:02 Freq: ONCE Status: Active Protocol: Document 10/13/23 13:50 PHOLUIS (Rec: 10/13/23 14:06 PHORNE [id number]) Subjective/History History History Patient is a 73 yowf that presents to [facility] from [facility] for a primary complaint of SOB. She was just discharged from [facility] to [facility] on 10/09/2023 after a fall that occurred on 09/25/2023, which resulted in a fractured patella of her left knee. During her stay at [facility] , she developed anxiety and shortness of breath, which led to her daughter bringing her back to [facility]. The patient's PMH is remarkable for Atrial fibrillation with rapid ventricular response, Cerebrovascular accident, Closed fracture of left patella, Diabetes mellitus, History of TIA (transient ischemic attack), Hyperlipidemia, Hypertensive cardiovascular disease. Vocal cord paralysis Subjective Subjective The patient was agreeable to therapy at this time. She reported that while at [facility], she had been walking without her knee immobilizer and could not remember if that was what her doctor had told her. She also reported that she plans to go home tomorrow. She reported no pain while lying in bed and little pain in her left knee when standing . During ambulation, patient required to sit down after walking 20 feet because her knee was giving out. New diagnosis of cancer in past 12 No months? Rehab PT IP Eval Objective Appearance Patient Behavior Appropriate,Cooperative, Patient Baseline Patient Orientation Person,Place,Time,Birthday Difficulty following instructions none Speech Pattern Clear,Patient Baseline Ambulation Patient Able to Ambulate Yes Ambulation Observation IP General Gait Pattern Observation Antalgic Gait,Narrow Based Gait Ambulation Distance (feet) 40 Ambulation Assistive Device None Ambulation Ability Minimal x 2 (25% assist) Balance Ability to Arise Able, uses arms to help Sitting Balance Steady, safe Standing Balance Narrow stance w/o support Dynamic Sitting Balance Ability Good Dynamic Standing Balance Ability Fair Transfers Bed Transfer Ability Independent Sit to Stand Bed Transfer Ability Contact Guard/Hand Hold Rehab PT IP prob,goals,plan Problems Date of Evaluation: 10/13/23 PT IP Problems Transfers,Gait,Balance Rehab Potential Rehab Potential Good Plan PT Intervention Plan Bed Mobility,Transfers,Gait, Balance,Self care,Therapeutic Exercise PT Plan Frequency Daily Duration LOS Discharge Goals Sit to Stand Chair Transfer Ability Independent Ambulation Distance (feet) 75 Discharge Plan PT Discharge Plan Patient was seen for initial evaluation today. Patient demonstrated unsteadiness during gait and required to sit down for a rest break because her knee was giving out. Presently, the patient would most appropriately benefit from returning to Rehab. Skilled PT is indicated for this patient at this time to promote a return to her prior level of function and prevent further injuries. Eval Complexity Eval Charge Codes 31274 - High Complexity PHYSICIAN CERTIFICATION: I certify the specified therapy services for Yesi Fernandez are required, authorized, and reviewed every 30 days.
--- NOTE | 2023-10-13 14:34 | HMH.OTEV ---
OT Inpatient Evaluation Rehab OT IP Evaluation Start: 10/13/23 13:04 Freq: ONCE Status: Active Protocol: [facility]13/23 14[facility]27 [facility] (Rec: 10/13/23 14:[address] [facility] [id number]) Rehab OT IP Assessment Subjective History Patient is a 73 yowf that presents to [facility] from [place] for a primary complaint of SOB. She was just discharged from [facility] to [place] on 10/09/2023 after a fall that occurred on 09/25/2023, which resulted in a fractured patella of her left knee. During her stay at [place] , she developed anxiety and shortness of breath, which led to her daughter bringing her back to [facility]. The patient's PMH is remarkable for Atrial fibrillation with rapid ventricular response, Cerebrovascular accident, Closed fracture of left patella, Diabetes mellitus, History of TIA (transient ischemic attack), Hyperlipidemia, Hypertensive cardiovascular disease, Vocal cord paralysis Subjective The patient was agreeable to therapy at this time. She reported that while at [place], she had been walking without her knee immobilizer and could not remember if that was what her doctor had told her. She also reported that she plans to go home tomorrow. She reported no pain while lying in bed and little pain in her left knee when standing . Pt had to rest during functiona mobility task of ~20 feet because her knee was giving out. Objective Patient Orientation Person,Place,Birthday Right Upper Extremity Gross ROM WFL Left Upper Extremity Gross ROM WFL Bed Mobility bed mobility-scooting,bed mobility - supine/sit Assist Level Contact Guard/Hand Hold Transfer Training Sit/Stand Transfer Assist Level Minimal x 2 (25% assist) Rehab OT IP prob,goals,plan Problems Date of Evaluation: 10/13/23 OT IP Problems Bed Mobility,Transfers,Balance ,Self care,Safety Rehab Potential Rehab Potential Good Equipment Needs Assistive Devices Rolling / Wheeled Walker Plan OT intervention Plan Bed Mobility,Transfers,Balance ,Self care,Safety,Therapeutic Exercise OT Plan Frequency Daily Duration LOS Discharge Goals Bed Mobility Ability Standby Assistance Sit to Stand Chair Transfer Ability Minimal x 1 (25% assist) Chair Transfer Ability Minimal x 1 (25% assist) Chair Transfer Technique Sit to/from Ambulatory Chair Transfer Assistive Devices Rolling Walker Feeding Ability Assist with Tray Set Up Lower Body Dressing Ability Moderate Assistance Upper Body Dressing Ability Contact Guard Bathing Ability Moderate Assistance Performing Toilet Hygiene Ability Moderate Assistance Overall Commode/Toilet Transfer Ability Minimal Assistance Commode/Toilet Transfer Technique Sit to/from Ambulatory Commode/Toilet Transfer Assistive Raised Toilet Seat,Grab Bars Devices Oral Care Assist Standby Assistance Decrease in Endurance Yes Discharge Plan OT Discharge Plan Pt will continue to be seen for OT services while at [facility]. At this time, she would benefit most from returning to short term rehab at [facility]. Continued skilled therapy is important to improve strength, safety, endurance, ADL independence, and functional transfers to reach PLOF. Eval Complexity Eval Charge Codes 38273 - Moderate Complexity PHYSICIAN CERTIFICATION: I certify the specified therapy services for Yesi Fernandez are required, authorized, and reviewed every 30 days.
[2023-10-13] MEDS: METOPROLOL TARTRATE 50MG TABLET 50 MG PO ×3 (15:02→21:20)
[2023-10-13 17:27] LABS: POC Glucose,Bedside 165 (70-110)
[2023-10-13] MEDS: METFORMIN 1000 MG 1 EACH PO (17:29)
--- NOTE | 2023-10-13 18:53 | PC.NURSE ---
Patient a&ox4 and vss. Patient has had less soa this shift and reports feeling more comfortable.
[2023-10-13] MEDS: FERROUS SULFATE 325MG TABLET 325 MG PO (21:20)
[2023-10-13] MEDS: INSULIN GLARGINE 100 UNITS/ML 3ML FLEXPEN 40 UNIT SQ (21:21)
[2023-10-13] MEDS: ATORVASTATIN 80 MG 1 EACH PO (21:25)
[2023-10-14] VITALS (7 sets, daily range): BP systolic 93–138; BP diastolic 44–70; PULSE 63–69; RESP 14–18; TEMP 36.4–37; O2SAT 90–98; BMI 29.0
[2023-10-14] MEDS: ONDANSETRON 4MG ODT 4 MG SL (04:00)
[2023-10-14] MEDS: METFORMIN 1000 MG 1 EACH PO ×2 (07:00→17:21)
--- NOTE | 2023-10-14 08:22 | CARE MANAGER ---
Per Dr. Finch, patient would benefit from a hinged brace r/t patella Fx. I have requested that Dr. Finch send an outpatient order to PT and they will supply for patient.
[2023-10-14] MEDS: METOPROLOL TARTRATE 50MG TABLET 50 MG PO ×4 (08:29→21:24)
[2023-10-14] MEDS: AMIODARONE 200MG TABLET 400 MG PO ×2 (08:29→21:24)
[2023-10-14] MEDS: FERROUS SULFATE 325MG TABLET 325 MG PO ×2 (08:29→21:24)
[2023-10-14] MEDS: APIXABAN 5MG TABLET 5 MG PO ×2 (08:29→21:24)
[2023-10-14] MEDS: PT OWN MED *CLOPIDOGREL 75 MG TAB 1 EACH PO (08:29)
[2023-10-14] MEDS: FAMOTIDINE 20MG TABLET 20 MG PO ×2 (08:29→21:24)
[2023-10-14] MEDS: ASPIRIN EC 81MG TABLET 81 MG PO (08:29)
[2023-10-14] MEDS: EMPAGLIFLOZIN 10MG TABLET 10 MG PO (08:29)
[2023-10-14] MEDS: SPIRONOLACTONE 25MG TABLET 25 MG PO (08:30)
--- NOTE | 2023-10-14 08:40 | P.PN_ITS ---
Subjective *Date: 10/14/23 *Time: 08:40 Interval history: Patient states her mouth is dry and she is not urinating as much, feels like she may be dehydrated. Medical Exam Vital signs and Labs for Last 24 Hours: Vital Signs Temp Pulse Resp BP Pulse Ox O2 Del Method O2 Flow Rate 10/14/23 08:00 97.6 F 69 16 113/44 L 98 Room Air 10/14/23 08:00 Nasal Cannula 2.5 10/14/23 07:00 Nasal Cannula 2.5 10/14/23 05:00 Nasal Cannula 2.5 10/14/23 04:00 98.1 F 63 14 93/47 L 90 L 10/14/23 03:00 Nasal Cannula 2.5 10/14/23 01:00 Nasal Cannula 2.5 10/14/23 00:00 98.6 F 67 18 114/61 98 10/13/23 23:00 Nasal Cannula 2.5 10/13/23 21:00 Nasal Cannula 2.5 10/13/23 20:00 98 Nasal Cannula 2.5 10/13/23 16:00 98.2 F 75 16 133/69 100 Nasal Cannula 2.5 10/13/23 12:00 97.7 F 80 16 137/75 95 Nasal Cannula 10/13/23 11:00 91 L Room Air Intake and Output 10/13/23 10/14/23 10/14/23 23:59 07:59 15:59 Intake Total 420 / 1530 360 / 930 570 / 930 Output Total 300 / 550 250 / 500 250 / 500 Balance 120 / 980 110 / 430 320 / 430 Intake: Intake, Oral Amount 420 / 1530 360 / 930 570 / 930 Output: Output, Urine Amount 300 / 550 250 / 500 250 / 500 Other: Number of Unmeasured Voids 1 0 Number of Bowel Movements 1 Weight 163 lb 15.995 oz Patient Weight 10/14/23 23:59 Weight 163 lb 15.995 oz Laboratory Results - last 24 hr 10/13/23 11:38: POC Glucose 160 H 10/13/23 17:19: POC Glucose 165 H I & O for Labs for Last 24 Hours: Intake & Output 10/11/23 10/12/23 10/13/23 10/14/23 23:59 23:59 23:59 23:59 Intake Total 1170 / 1530 930 / 930 Output Total 550 / 550 300 / 550 500 / 500 Balance -550 / -550 870 / 980 430 / 430 Weight 164 lb 163 lb 15.995 oz 163 lb 15.995 oz Constitutional: Present no acute distress ENT: Present mucous membranes dry Respiratory: Present CTA bilaterally Cardiac: Present Reg Rate and Rhythm Comment:: frequent ectopics GI: Present soft and normal bowel sounds; Absent distention or tenderness Extremities: Present joint swelling (Left knee ); Absent edema (Right leg without edema.) Skin: Present intact Neuro: Present alert and oriented x 3 Assessment and Plan *Assessment and plan (1) Acute hypoxemic respiratory failure: Status: Acute Category: Medical Code(s): J96.01 - Acute respiratory failure with hypoxia (2) Pulmonary edema: Status: Acute Qualifiers: Chronicity: acute Qualified Code(s): J81.0 - Acute pulmonary edema Category: Medical Code(s): J81.1 - Chronic pulmonary edema (3) CAD (coronary artery disease): Status: Acute Category: Medical Code(s): I25.10 - Atherosclerotic heart disease of [place] coronary artery without angina pectoris (4) Closed fracture of left patella: Status: Acute Qualifiers: Encounter type: initial encounter Fracture alignment: displaced Fracture morphology: transverse Qualified Code(s): S82.032A - Displaced trans verse fracture of left patella, initial encounter for closed fracture Category: Medical Code(s): S82.002A - Unspecified fracture of left patella, initial encounter for closed fracture (5) Obesity (BMI 30.0-34.9): Status: Chronic Category: Medical Code(s): E66.9 - Obesity, unspecified (6) Hypertensive cardiovascular disease: Status: Chronic Qualifiers: Heart failure presence: unspecified whether heart failure present Qualified Code(s): I11.9 - Hypertensive heart disease without heart failure Category: Medical Code(s): I11.9 - Hypertensive heart disease without heart failure (7) Hyperlipidemia: Status: Acute Qualifiers: Hyperlipidemia type: mixed hyperlipidemia Qualified Code(s): E78.2 - Mixed hyperlipidemia Category: Medical Code(s): E78.5 - Hyperlipidemia, unspecified (8) Diabetes mellitus: Status: Chronic Qualifiers: Diabetes mellitus complication status: with other specified complication Diabetes mellitus nursing home insulin use: unspecified talent management specialist insulin use status Diabetes mellitus type: type 2 Qualified Code(s): E11.69 - Type 2 diabetes mellitus with other specified complication Category: Medical Code(s): E11.9 - Type 2 diabetes mellitus without complications (9) Nausea and vomiting: Status: Acute Category: Medical Code(s): R11.2 - Nausea with vomiting, unspecified (10) Anemia: Status: Acute Category: Medical Code(s): D64.9 - Anemia, unspecified (11) Status post coronary artery stent placement: Status: Acute Category: Surgical Code(s): Z95.5 - Presence of coronary angioplasty implant and graft Plan Wean off of supplemental O2 today, recheck labs. Patient states she is not going back to [facility] for rehab as PT and OT have recommended. Possible discharge later today with home health.
[2023-10-14 08:52] LABS: Basophils # 0.1 K/mm3 (0-0.2); Basophils % 0.8 % (0.1-2.0); Eosinophils # 0.6 K/mm3 (0.0-0.4); Eosinophils % 7.5 % (0.1-12.0); Hematocrit 31.2 % (37.0-47.0); Hemoglobin 9.7 g/dL (12.2-16.2); Lymphocytes # 1.7 K/mm3 (0.7-4.5); Lymphocytes % 20.8 % (10-50); Mean Corpuscular HGB Conc 31.2 g/dL (31.8-35.4); Mean Corpuscular Hemoglobin 30.6 pg (27.0-31.2); Mean Platelet Volume 8.7 fl (7.4-10.4); Monocytes # 0.4 K/mm3 (0.1-1.0); Monocytes % 5.4 % (1.7-9.3); Neutrophils # 5.4 K/mm3 (1.8-7.8); Neutrophils % 65.5 % (37.0-80.0); Platelet Count 532 K/mm3 (142-424); Red Blood Count 3.18 M/mm3 (4.20-5.40); Red Cell Distribution Width 15.2 % (11.5-17.5); White Blood Count 8.2 K/mm3 (4.8-10.8)
[2023-10-14 09:33] LABS: Blood Urea Nitrogen 35 mg/dl (7-17); Carbon Dioxide 31 mmol/L (22.0-30.0); Chloride 99 mmol/L (98-107); Creatinine Clearance Estimated 39 mL/min (50-200); Estimated Glomerular Filt Rate 34 ml/min (>60); GFR (African American) 41 ML/MIN (>60); Glucose 180 mg/dl (74-100); Sodium 139 mmol/L (136-145)
--- NOTE | 2023-10-14 10:12 | HMH.OTEV ---
OT Inpatient Evaluation Rehab OT IP Evaluation Start: 10/13/23 13:04 Freq: ONCE Status: Active Protocol: Document 10/14/23 10:08 DEVIN (Rec: 10/14/23 10:12 DEVIN [id number]) Rehab OT IP Assessment Subjective History Ms. Fernandez is a 73-year-old female whose problems started after a fall at home on 2023. At this time she hit her head and fractured her left knee. She then developed nausea and vomiting along with the severe left knee pain and was eventually admitted to the hospital due to dehydration. She was hospitalized at [facility] from 2023 to 10/09/2023. During this period of time she had difficulty with nausea and vomiting. She also developed atrial fibrillation and converted after being initiated on an amiodarone drip. She eventually ended up having a cardiac cath with successful stenting with 3 stents. She was placed on Plavix and aspirin. After this she was told she would need to stay on the Plavix and aspirin for at least 30 days before she could have any surgery to her left knee. She was in a left knee brace. Due to care issues and mobility issues she was sent to rehab for some physical therapy and ongoing care. Patient states that on 2023 she developed some shortness of breath. This progressively worsened. She became anxious and therefore became more short of breath and it was a vicious cycle. She denied having any chest pain or palpitations. Eventually her family brought her to [facility] for evaluation at which time she was felt to be in pulmonary edema. She was given Lasix in the emergency room and admitted. At the time of this exam patient states she feels much better. She denies shortness of breath. She denies chest pain. She was able to sleep during the night. She did vomit 1 time after taking her medicine last p.m. but has had no further nausea and has not vomited since. She states she feels much better and plans to go home rather than back to rehab. She states she was able to walk without a walker or brace with physical therapy at [place] and did well. Prior to [facility] for rehab, Patient lives alone with family near by. Patient was independent with ADLs and fx'l mobility prior to fx of knee. Subjective I want to wait to get out of bed til my daughter gets here. Patient agreed to sit @ EOB with needing SUP. Patient demonstrated good dynamic sitting balance independently. Patient did not have immobilizer in room, family has it. Patient is to have it sridevi when OOB. Patient reported to have family bring in immobilizer to ambulate this afternoon. Objective Patient Orientation Person,Place,Name,Age,Birthday ,Year Right Upper Extremity Gross ROM WFL Left Upper Extremity Gross ROM WFL Bed Mobility bed mobility - supine/sit Assist Level Supervision/Stand by Rehab OT IP prob,goals,plan Problems Date of Evaluation: 10/14/23 OT IP Problems Bed Mobility,Transfers,Balance ,Self care,Safety Rehab Potential Rehab Potential Good Equipment Needs Assistive Devices None / NA,Rolling / Wheeled Walker Plan OT intervention Plan Bed Mobility,Transfers,Balance ,Self care,Safety,Therapeutic Exercise OT Plan Frequency Daily Duration LOS Discharge Goals Bed Mobility Ability Independent Discharge Plan OT Discharge Plan REcommends placement, however patient verbalize that she is returning home. REcommend serivces or if family is able to provide transportation to OP services. Patient stated, I don't think I will need any therapy once I leave here. Patient to continue to be seen by [facility] therapy while here. Eval Complexity Eval Charge Codes 42155 - Low Complexity PHYSICIAN CERTIFICATION: I certify the specified therapy services for Yesi Fernandez are required, authorized, and reviewed every 30 days.
[2023-10-14 11:17] LABS: POC Glucose,Bedside 129 (70-110)
[2023-10-14] MEDS: humaLOG 100 UNITS/ML 3ML VIAL (SSI) SQ (16:26)
[2023-10-14 16:27] LABS: POC Glucose,Bedside 214 (70-110)
[2023-10-14] MEDS: 0.9 % SODIUM CHLORIDE 1000ML 1,000 ML 100 ML IV (19:10)
[2023-10-14] MEDS: PROMETHAZINE HCL 25MG/ML 1ML VIAL 12.5 MG IV (19:10)
[2023-10-14] MEDS: SODIUM CHLORIDE 0.9% 25ML BAG 25 ML IV (19:33)
[2023-10-14 20:26] LABS: POC Glucose,Bedside 111 (70-110)
[2023-10-14] MEDS: ATORVASTATIN 80 MG 1 EACH PO (21:24)
[2023-10-15] VITALS: BP 130/70; PULSE 73; RESP 17; TEMP 36.6; O2SAT 96
[2023-10-15 01:41] LABS: POC Glucose,Bedside 97 (70-110)
[2023-10-15 04:00] VITALS: BP 117/65; PULSE 69; RESP 16; TEMP 36.6; O2SAT 94; BMI 29.7
[2023-10-15 05:44] LABS: POC Glucose,Bedside 148 (70-110)
--- NOTE | 2023-10-15 06:42 | PC.NURSE ---
Pt is A&Ox4 and currently tolerating RA. Pt has complained of nausea and has been treated per MAR. Pt has tolerated fluids well and denies pain.
[2023-10-15 08:00] VITALS: BP 128/65; PULSE 73; RESP 16; TEMP 37; O2SAT 94
--- NOTE | 2023-10-15 08:21 | EXP.ACUTE.PN ---
Subjective *Date: 10/15/23 *Time: 08:55 Interval history: Patient is feeling a little bit better this morning. She has been off oxygen since yesterday with stable saturations. She was vomiting yesterday but has not vomited today. She remains nauseated. She was trying to eat breakfast. Medical Exam Vital signs and Labs for Last 24 Hours: Vital Signs Temp Pulse Resp BP Pulse Ox O2 Del Method 10/15/23 06:34 Room Air 10/15/23 05:00 Room Air 10/15/23 04:00 97.8 F 69 16 117/65 94 L 10/15/23 02:42 Room Air 10/15/23 00:52 Room Air 10/15/23 00:00 98 F 73 17 130/70 96 10/14/23 23:00 Room Air 10/14/23 21:00 Room Air 10/14/23 20:00 Room Air 10/14/23 20:00 97.6 F 68 16 138/70 95 Room Air 10/14/23 19:00 Room Air 10/14/23 17:00 Room Air 10/14/23 16:00 98.1 F 69 17 120/60 94 L Room Air 10/14/23 15:00 Room Air 10/14/23 13:00 Room Air 10/14/23 12:00 97.9 F 64 17 127/61 95 Room Air 10/14/23 11:00 Room Air 10/14/23 10:25 103/54 L 97 Room Air 10/14/23 09:00 Room Air Intake and Output 10/14/23 10/15/23 10/15/23 19:59 03:59 11:59 Intake Total 710 / 1467 757 / 1467 Output Total 0 / 500 500 / 500 Balance 710 / 967 757 / 967 -500 / 967 Intake: Intake, Oral Amount 710 / 1070 360 / 1070 Intake, Total IV Amount 397 / 397 0.9 % Sodium Chloride 1000ML 1, 397 / 397 000 ml @ 100 mls/hr IV .Q10H ONE Rx#:[id number] Output: Output, Urine Amount 0 / 500 500 / 500 Other: Number of Unmeasured Voids 1 2 Weight 168 lb 3.2 oz Patient Weight 10/15/23 11:59 Weight 168 lb 3.2 oz Laboratory Results - last 24 hr 10/14/23 08:42: WBC 8.2 D, RBC 3.18 L, Hgb 9.7 L, Hct 31.2 L, MCV 98.0, MCH 30.6, MCHC 31.2 L, RDW 15.2, Plt Count 532 H, MPV 8.7, Neut % (Auto) 65.5, Lymph % (Auto) 20.8, [place] % (Auto) 5.4, Eos % (Auto) 7.5, Baso % (Auto) 0.8, Neut # (Auto) 5.4, Lymph # (Auto) 1.7, [place] # (Auto) 0.4, Eos # (Auto) 0.6 H, Baso # (Auto) 0.1, Sodium 139, Potassium 4.0, Chloride 99, Carbon Dioxide 31 H, Anion Gap 13.0, BUN 35 H D, Creatinine 1.50 H D, Estimated Creat Clear 39, Estimated GFR 34 L, Est GFR ( Amer) 41 L D, Glucose 180 H, Calcium 8.0 L 10/14/23 11:11: POC Glucose 129 H 10/14/23 16:21: POC Glucose 214 H 10/14/23 20:11: POC Glucose 111 H 10/15/23 01:33: POC Glucose 97 10/15/23 05:30: POC Glucose 148 H I & O for Labs for Last 24 Hours: Intake & Output 10/12/23 10/13/23 10/14/23 10/15/23 11:59 11:59 11:59 11:59 Intake Total 270 / 270 1905 / 1905 1467 / 1467 Output Total 550 / 550 800 / 800 500 / 500 Balance -280 / -280 1105 / 1105 967 / 967 Weight 163 lb 15.995 oz 163 lb 15.995 oz 168 lb 3.2 oz Constitutional: Present no acute distress ENT: Present mucous membranes dry Respiratory: Present CTA bilaterally Cardiac: Present Reg Rate and Rhythm Comment:: frequent ectopics GI: Present soft and normal bowel sounds; Absent distention or tenderness Extremities: Present joint swelling (Left knee ); Absent edema (Right leg without edema.) Skin: Present intact Neuro: Present alert and oriented x 3 Assessment and Plan *Assessment and plan (1) Acute hypoxemic respiratory failure: Status: Acute Category: Medical Code(s): J96.01 - Acute respiratory failure with hypoxia (2) Pulmonary edema: Status: Acute Qualifiers: Chronicity: acute Qualified Code(s): J81.0 - Acute pulmonary edema Category: Medical Code(s): J81.1 - Chronic pulmonary edema (3) CAD (coronary artery disease): Status: Acute Category: Medical Code(s): I25.10 - Atherosclerotic heart disease of [place] coronary artery without angina pectoris (4) Closed fracture of left patella: Status: Acute Qualifiers: Encounter type: initial encounter Fracture alignment: displaced Fracture morphology: transverse Qualified Code(s): S82.032A - Displaced transverse fracture of left patella, initial encounter for closed fracture Category: Medical Code(s): S82.002A - Unspecified fracture of left patella, initial encounter for closed fracture (5) Obesity (BMI 30.0-34.9): Status: Chronic Category: Medical Code(s): E66.9 - Obesity, unspecified (6) Hypertensive cardiovascular disease: Status: Chronic Qualifiers: Heart failure presence: unspecified whether heart failure present Qualified Code(s): I11.9 - Hypertensive heart disease without heart failure Category: Medical Code(s): I11.9 - Hypertensive heart disease without heart failure (7) Hyperlipidemia: Status: Acute Qualifiers: Hyperlipidemia type: mixed hyperlipidemia Qualified Code(s): E78.2 - Mixed hyperlipidemia Category: Medical Code(s): E78.5 - Hyperlipidemia, unspecified (8) Diabetes mellitus: Status: Chronic Qualifiers: Diabetes mellitus complication status: with other specified complication Diabetes mellitus [facility] insulin use: 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 Still experiencing nausea. Still feels dehydrated. Possibly home today with home health. Dr. Bazine entry - Saw patient, agree with above note. She is better this morning. Plan discharge home later today.
[2023-10-15] MEDS: METFORMIN 1000 MG 1 EACH PO (09:54)
[2023-10-15] MEDS: EMPAGLIFLOZIN 10MG TABLET 10 MG PO (09:54)
[2023-10-15] MEDS: SPIRONOLACTONE 25MG TABLET 25 MG PO (09:55)
[2023-10-15] MEDS: FERROUS SULFATE 325MG TABLET 325 MG PO (09:55)
[2023-10-15] MEDS: AMIODARONE 200MG TABLET 400 MG PO (09:55)
[2023-10-15] MEDS: PT OWN MED *CLOPIDOGREL 75 MG TAB 1 EACH PO (09:55)
[2023-10-15] MEDS: APIXABAN 5MG TABLET 5 MG PO (09:55)
[2023-10-15] MEDS: METOPROLOL TARTRATE 50MG TABLET 50 MG PO (09:55)
[2023-10-15] MEDS: ASPIRIN EC 81MG TABLET 81 MG PO (09:55)
[2023-10-15 11:42] LABS: POC Glucose,Bedside 214 (70-110)
[2023-10-15] MEDS: humaLOG 100 UNITS/ML 3ML VIAL (SSI) SQ (11:52)
--- NOTE | 2023-10-15 12:39 | DIET.NUTRFU ---
Patient discharging today, had no dietary concerns or questions on cardiac diet.
--- NOTE | 2023-10-16 12:05 | CARE MANAGER ---
Contacted patient related to hospital discharge. She states she is very tired. She has no new medications and is aware of follow up appointment. She denies questions or concerns. GIOVANNI José
--- NOTE | 2023-10-22 13:11 | EXP.DC.SUM ---
General Admission date:: 10/12/23 Discharge date: 10/15/23 HPI HPI HPI: Ms. Fernandez is a 73-year-old female whose problems started after a fall at home on 09/25/2023. At this time she hit her head and fractured her left knee. She then developed nausea and vomiting along with the severe left knee pain and was eventually admitted to the hospital due to dehydration. She was hospitalized at [facility] from 10/01/2023 to 10/09/2023. During this period of time she had difficulty with nausea and vomiting. She also developed atrial fibrillation and converted after being initiated on an amiodarone drip. She eventually ended up having a cardiac cath with successful stenting with 3 stents. She was placed on Plavix and aspirin. After this she was told she would need to stay on the Plavix and aspirin for at least 30 days before she could have any surgery to her left knee. She was in a left knee brace. Due to care issues and mobility issues she was sent to rehab for some physical therapy and ongoing care. Patient states that on 10/11/2023 she developed some shortness of breath. This progressively worsened. She became anxious and therefore became more short of breath and it was a vicious cycle. She denied having any chest pain or palpitations. Eventually her family brought her to [facility] for evaluation at which time she was felt to be in pulmonary edema. She was given Lasix in the emergency room and admitted. At the time of this exam patient states she feels much better. She denies shortness of breath. She denies chest pain. She was able to sleep during the night. She did vomit 1 time after taking her medicine last p.m. but has had no further nausea and has not vomited since. She states she feels much better and plans to go home rather than back to rehab. She states she was able to walk without a walker or brace with physical therapy at [place] and did well. Hospital Course Hospital Course Hospital Course: The patient was admitted and started on oxygen and diuresis. By 10/14/2023, her mouth was dry and she felt she might be dehydrated. She was able to be weaned off of supplemental oxygen. She stated she was not going back to [place] for rehab and wanted to be discharged home with home health. By 10/15/2023, she was feeling a little bit better. She had remained off oxygen. She had no further vomiting but did remain nauseated. She was able to eat and it was felt she could be discharged home with home health. Exam Data for Last 24 hours Vital signs and Labs for Last 24 Hours: Temp Pulse Resp BP Pulse Ox O2 Del Method O2 Flow Rate 98.6 F 73 16 128/65 94 L Room Air 2.5 10/15/23 08:00 10/15/23 08:00 10/15/23 08:00 10/15/23 08:00 10/15/23 08:00 10/15/23 11:00 10/14/23 08:00 Narrative: Constitutional Constitutional: no acute distress Comments: sitting on bedside eating breakfast; appears comfortable *Routine HEENT Exam Head: Present normocephalic and atraumatic Eye: Present PERRL; Absent conjunctival icterus, scleral injection or conjunctivae pink ENT: Present mucous membranes moist and oropharynx clear *Routine Neck Exam Neck: Present supple; Absent carotid bruit, lymphadenopathy or thyromegaly Routine Chest/Breast/Axilla Exam Chest wall: Absent tenderness *Routine Respiratory Exam Respiratory: Present crackles (few bibasilar crackles) *Routine Cardiovascular Exam Cardiovascular: Present RRR *Routine Abdominal Exam Abdominal: Present soft and normoactive bowel sounds; Absent tenderness or distended *Routine Rectal Exam Rectal:: deferred *Routine Genitalia Exam Genitalia:: deferred *Routine Extremities Exam Extremities: Absent edema or calf tenderness *Routine Neurological Exam Neurological: Present alert, oriented X3 and normal speech; Absent altered mental status DS: Diagnosis Discharge Diagnosis (1) Acute hypoxemic respiratory failure: Status: Acute Code(s): J96.01 - Acute respiratory failure with hypoxia (2) Pulmonary edema: Status: Acute Code(s): J81.1 - Chronic pulmonary edema Qualifiers: Chronicity: acute Qualified Code(s): J81.0 - Acute pulmonary edema (3) CAD (coronary artery disease): Status: Acute Code(s): I25.10 - Atherosclerotic heart disease of [place] coronary artery without angina pectoris (4) Closed fracture of left patella: Status: Acute Code(s): S82.002A - Unspecified fracture of left patella, initial encounter for closed fracture Qualifiers: Encounter type: initial encounter Fracture alignment: displaced Fracture morphology: transverse Qualified Code(s): S82.032A - Displaced transverse fracture of left patella, initial encounter for closed fracture (5) Obesity (BMI 30.0-34.9): Status: Resolved Code(s): E66.9 - Obesity, unspecified (6) Hypertensive cardiovascular disease: Status: Chronic Code(s): I11.9 - Hypertensive heart disease without heart failure Qualifiers: Heart failure presence: unspecified whether heart failure present Qualified Code(s): I11.9 - Hypertensive heart disease without heart failure (7) Hyperlipidemia: Status: Acute Code(s): E78.5 - Hyperlipidemia, unspecified Qualifiers: Hyperlipidemia type: mixed hyperlipidemia Qualified Code(s): E78.2 - Mixed hyperlipidemia (8) Diabetes mellitus: Status: Chronic Code(s): E11.9 - Type 2 diabetes mellitus without complications Qualifiers: Diabetes mellitus complication status: with other specified complication Diabetes mellitus jail insulin use: unspecified jail insulin use status Diabetes mellitus type: type 2 Qualified Code(s): E11.69 - Type 2 diabetes mellitus with other specified complication (9) Nausea and vomiting: Status: Resolved Code(s): R11.2 - Nausea with vomiting, unspecified (10) Anemia: Status: Acute Code(s): D64.9 - Anemia, unspecified (11) Status post coronary artery stent placement: Status: Acute Code(s): Z95.5 - Presence of coronary angioplasty implant and graft Meds Home Medications and Allergies Home Medications Medication Instructions Recorded Confirmed Type metformin 1,000 mg tablet 1,000 mg PO BID 01/02/21 10/12/23 History atorvastatin 80 mg tablet 80 mg PO DAILY 02/03/22 10/12/23 History blood sugar diagnostic (Accu-Chek #10 ea 02/03/22 10/12/23 History Amanda Plus test strips) clopidogrel 75 mg tablet 75 mg PO DAILY 02/03/22 10/12/23 History lancets (Accu-Chek Softclix #100 ea 02/03/22 10/12/23 History Lancets) lisinopril 10 mg tablet 10 mg PO DAILY 02/03/22 10/12/23 History pen needle, diabetic 31 gauge x #1,200 ea 02/03/22 10/12/23 History 5/16 (Droplet Pen Needle) aspirin 81 mg capsule 81 mg PO DAILY 06/29/23 10/12/23 History ergocalciferol (vitamin D2) 10 mcg 10 mcg PO BID 06/29/23 10/12/23 History (400 unit) tablet vitamin B12 500 mcg-folic acid 400 1 tab PO DAILY Supplement 06/29/23 10/12/23 History mcg tablet insulin glargine 100 unit/mL (3 40 unit SQ HS 10/01/23 10/12/23 History mL) subcutaneous pen (Lantus Solostar U-100 Insulin) acetaminophen 325 mg tablet 650 mg (2 x 325 mg) PO Q4HP PRN 10/09/23 10/12/23 Rx Fever Or Mild Pain (1-3) #0 tabs amiodarone 200 mg tablet 400 mg (2 x 200 mg) PO BID #0 tabs 10/09/23 10/12/23 Rx apixaban 5 mg tablet (Eliquis) 5 mg PO BID #60 tabs 10/09/23 10/12/23 Rx empagliflozin 10 mg tablet 10 mg PO DAILY #0 tabs 10/09/23 10/12/23 Rx (Jardiance) famotidine 20 mg tablet 20 mg PO BID #0 tabs 10/09/23 10/12/23 Rx ferrous sulfate 325 mg (65 mg 325 mg PO BID #60 tabs 10/09/23 10/12/23 Rx iron) tablet insulin lispro 100 unit/mL 0 unit (0 mL) SQ ACHS #0 mL 10/09/23 10/12/23 Rx subcutaneous solution (Humalog U-100 Insulin) metoprolol tartrate 50 mg tablet 50 mg PO QID #0 tabs 10/09/23 10/12/23 Rx polyethylene glycol 3350 17 gram 17 g PO DAILY #0 ea 10/09/23 10/12/23 Rx oral powder packet (Miralax) sennosides 8.6 mg-docusate sodium 1 tab PO BIDP PRN Constipation #0 10/09/23 10/12/23 Rx 50 mg tablet (Stimulant Laxative tabs Plus) spironolactone 25 mg tablet 25 mg PO DAILY #0 tabs 10/09/23 10/12/23 Rx oxycodone 5 mg tablet 5 mg PO Q4HP PRN severe pain 10/15/23 Rx (scale score 7-10) #30 tabs promethazine 12.5 mg tablet 12.5 mg PO Q6H PRN nausea and 10/15/23 Rx vomiting #30 tabs New Prescriptions to Start Prescriptions: oxycodone Cosme Garcia promethazine Cosme Garcia Allergies Allergy/AdvReac Type Severity Reaction Status Date / Time No Known Allergies Allergy Verified 09/25/23 17:56 Discharge Plan Disposition Patient Disposition: Home Health Service Condition: Fair Discharge Order Discharge Orders: Discharge Order (Routine); Ordered 10/15/23 Ordered By: Cosme Garcia Follow up Plan Follow up with: Cosme Garcia MD [Primary Care Provider] - 10/22/23 10:00 am Prescriptions/Medication Reconciliation: Continued atorvastatin 80 mg tablet 80 mg PO DAILY lisinopril 10 mg tablet 10 mg PO DAILY (DME) pen needle, diabetic [Droplet Pen Needle] 31 gauge x 5/16 needle See Rx Instructions .ROUTE .MEDSUPPLY Qty: 1200 Rx Instructions: As directed (DME) Accu-Chek Amanda Plus test strp Strip See Rx Instructions .ROUTE .MEDSUPPLY Qty: 10 Rx Instructions: As directed clopidogrel 75 mg tablet 75 mg PO DAILY (DME) lancets [Accu-Chek Softclix Lancets] Misc See Rx Instructions .ROUTE .MEDSUPPLY Qty: 100 Rx Instructions: As directed metformin 1,000 MG tablet 1,000 mg PO BID ergocalciferol (vitamin D2) 10 mcg (400 unit) Tablet 10 mcg PO BID vitamin M00-nzpur acid 500-400 mcg Tablet 1 tab PO DAILY Rx Instructions: administer with a meal aspirin 81 mg Capsule 81 mg PO DAILY promethazine 12.5 mg tablet 12.5 mg PO Q6H PRN (Reason: nausea and vomiting) Qty: 30 1RF Rx Instructions: 3 doses during day; last dose no later than 4 hr before bedtime oxycodone 5 mg Tablet 5 mg PO Q4HP PRN (Reason: severe pain (scale score 7-10)) Qty: 30 0RF insulin glargine [Lantus Solostar U-100 Insulin] 100 unit/mL (3 mL) insulin pen 40 unit SQ HS acetaminophen 325 mg Tablet 650 mg PO Q4HP PRN (Reason: Fever Or Mild Pain (1-3)) Qty: 0 0RF polyethylene glycol 3350 [Miralax] 17 gram Powder In Packet 17 g PO DAILY Qty: 0 0RF amiodarone 200 mg Tablet 400 mg PO BID Qty: 0 0RF famotidine 20 mg Tablet 20 mg PO BID Qty: 0 0RF metoprolol tartrate 50 mg Tablet 50 mg PO QID Qty: 0 0RF insulin lispro [Humalog U-100 Insulin] 100 unit/mL Solution 0 unit SQ ACHS Qty: 0 0RF Jardiance 10 mg Tablet 10 mg PO DAILY Qty: 0 0RF sennosides-docusate sodium [Stimulant Laxative Plus] 8.6-50 mg Tablet 1 tab PO BIDP PRN (Reason: Constipation) Qty: 0 0RF spironolactone 25 mg Tablet 25 mg PO DAILY Qty: 0 0RF Eliquis 5 mg tablet 5 mg PO BID Qty: 60 0RF ferrous sulfate 325 mg (65 mg iron) tablet 325 mg PO BID Qty: 60 0RF Discontinued ondansetron HCl 4 mg tablet 4 mg PO Q6 Problem Reconciliation Problems Reviewed?: Yes Patient Discharge Instructions ACTIVITY: Limited activity DIET: continue same diet Providers Primary Care Provider: Cosme Garcia Admit Provider: Jonathan Mororw Attending Provider: Cosme Garcia
== END 2023-10-15 13:20 | disposition home health service (06) ==
LOC: ER 18:40 → 2ND 19:45
PROVIDERS: Physician Assistant; Admitting Provider Internal Medicine Adolescent Medicine; Emergency Provider Student in an Organized Health Care Education/Training Program; PCP Family Medicine; Visit Provider Family Medicine
DX: J96.91 Respiratory failure, unspecified with hypoxia (principal); J96.01 Acute respiratory failure with hypoxia; J81.0 Acute pulmonary edema; I25.10 Atherosclerotic heart disease of native coronary artery without angina pectoris; S82.032A Displaced transverse fracture of left patella, initial encounter for closed fracture; E66.9 Obesity, unspecified; I11.9 Hypertensive heart disease without heart failure; E78.2 Mixed hyperlipidemia; E11.69 Type 2 diabetes mellitus with other specified complication; R11.2 Nausea with vomiting, unspecified; D64.9 Anemia, unspecified; Z95.5 Presence of coronary angioplasty implant and graft
CPT/HCPCS: 36415; 71045; 71275; 80048; 82962; 83880; 84484; 85025; 85378; 85610; 87636; 93005; 97116; 97163; 97165; 97166; 97530; 97535; 99291; G0378; Q9967

== ENCOUNTER 2023-11-11 12:58 | Outpatient (CLI) | payer MEDICARE, OTHER, SELFPAY ==
--- NOTE | 2023-11-11 13:16 | CA_ITS ---
APPROVED REPORT EXAM: Limited 2D Echocardiogram Cash Specialist: Chloe Suárez CRT Ht: 5 ft 2 in Wt: 162lbs BSA: 1.75 BP: 137/70 mmHg Indications: PERICARDIAL EFFUSION CHECK Other Information Study Quality: Fair Conclusion This is a limited TTE to evaluate for pericardial effusion. Limited windows were obtained. There is a trivial pericardial effusion noted anteriorly along the distal RV free wall towards the RV apex. No acute indications of tamponade. The IVC is small and collapsible. Compared to prior study from 10/07/2023, the trivial effusion is unchanged. Electronically signed by : Arpita Person MD 11/12/2023 12:24:21
== END 2023-11-11 23:59 ==
LOC: RT 12:58
PROVIDERS: PCP Family Medicine; Visit Provider Nurse Practitioner
DX: I31.39 Other pericardial effusion (noninflammatory) (principal)
CPT/HCPCS: 93308

== ENCOUNTER 2023-11-18 16:14 | Outpatient (CLI) | payer MEDICARE, OTHER, SELFPAY ==
--- NOTE | 2023-11-18 16:21 | XR_ITS ---
PROCEDURE INFORMATION: Exam: XR Chest Exam date and time: 11/18/2023 4:32 PM Age: 73 years old Clinical indication: Shortness of breath; Additional info: SOA TECHNIQUE: Imaging protocol: Radiologic exam of the chest. Views: 2 views. Total images: 2 COMPARISON: CT ANGIO CHEST PE PROTOCOL 10/12/2023 5:55 PM FINDINGS: Lungs: Bilateral hyperinflation is present. Atelectatic changes noted within both lung bases. Pleural spaces: No focal pneumonia or pneumothorax. Heart/Mediastinum: Unremarkable. No cardiomegaly. Bones/joints: The thoracic spine demonstrates mild degenerative changes at multiple levels. IMPRESSION: 1. Bilateral hyperinflation is present. 2. Atelectatic changes noted within both lung bases. 3. No focal pneumonia or pneumothorax.
== END 2023-11-18 23:59 ==
LOC: RAD 16:15
PROVIDERS: PCP Family Medicine; Visit Provider Physician Assistant
DX: R06.02 Shortness of breath (principal)
CPT/HCPCS: 71046

== ENCOUNTER 2023-11-25 10:49 | Outpatient (CLI) | payer MEDICARE, OTHER, SELFPAY ==
[2023-11-25 11:26] LABS: Basophils # 0.1 K/mm3 (0-0.2); Basophils % 0.8 % (0.1-2.0); Eosinophils # 0.7 K/mm3 (0.0-0.4); Eosinophils % 8.8 % (0.1-12.0); Hematocrit 35.4 % (37.0-47.0); Hemoglobin 11.1 g/dL (12.2-16.2); Lymphocytes # 1.6 K/mm3 (0.7-4.5); Lymphocytes % 19.9 % (10-50); Mean Corpuscular HGB Conc 31.4 g/dL (31.8-35.4); Mean Corpuscular Hemoglobin 31.1 pg (27.0-31.2); Mean Platelet Volume 8.2 fl (7.4-10.4); Monocytes # 0.4 K/mm3 (0.1-1.0); Neutrophils # 5.3 K/mm3 (1.8-7.8); Neutrophils % 65.5 % (37.0-80.0); Platelet Count 275 K/mm3 (142-424); Red Blood Count 3.57 M/mm3 (4.20-5.40); Red Cell Distribution Width 15.2 % (11.5-17.5); White Blood Count 8.1 K/mm3 (4.8-10.8)
[2023-11-25 11:56] LABS: Chloride 109 mmol/L (98-107)
[2023-11-25 11:57] LABS: Potassium 4.9 mmoL/L (3.5-5.1); Sodium 139 mmol/L (136-145)
[2023-11-25 11:59] LABS: Alanine Aminotransferase 22 U/L (12-78); Alkaline Phosphatase 90 U/L (38-126); Amylase 51 U/L (30-110); Anion Gap 11.9 mEq/L (5-15); Aspartate Amino Transferase 24 U/L (14-36); Bilirubin,Direct 0.3 mg/dl (0.0-0.4); Bilirubin,Indirect 0.2 mg/dL (0.0-0.9); Bilirubin,Total 0.5 mg/dl (0.2-1.3); Bilirubin,Unconjugated 0.2 mg/dL (0.0-1.1); Blood Urea Nitrogen 36 mg/dl (7-17); Calcium 8.9 mg/dl (8.4-10.2); Carbon Dioxide 23 mmol/L (22.0-30.0); Estimated Glomerular Filt Rate 34 ml/min (>60); GFR (African American) 41 ML/MIN (>60); Glucose 199 mg/dl (74-100); Lipase 43 U/L (23-300); Magnesium 1.7 mg/dl (1.6-2.3)
[2023-11-25 12:00] LABS: Albumin Level 3.5 g/dl (3.5-5.0); Chol/HDL Ratio 2.9 (1-3.5); Cholesterol 138 mg/dl (140-200); HDL Cholesterol 47 mg/dl (40-60); Total Protein,Serum 6.5 g/dl (6.3-8.2); Triglycerides 132 mg/dl (30-150); VLDL Cholesterol 26 mg/dL (0-40)
[2023-11-25 12:09] LABS: NT Pro Brain Natriuretic Pep. 679 pg/mL (0-125)
[2023-11-25 12:31] LABS: Thyroid Stimulating Hormone 7.44 uIU/mL (0.465-4.68)
[2023-11-25 14:16] LABS: Free T4 (Free Thyroxine) 1.55 ng/dl (0.78-2.19)
== END 2023-11-25 23:59 | disposition home or self-care (01) ==
LOC: LAB 15:55
PROVIDERS: PCP Family Medicine; Visit Provider Physician Assistant
DX: I25.10 Atherosclerotic heart disease of native coronary artery without angina pectoris (principal); Z95.5 Presence of coronary angioplasty implant and graft; D64.9 Anemia, unspecified; N17.9 Acute kidney failure, unspecified; E78.2 Mixed hyperlipidemia; E11.69 Type 2 diabetes mellitus with other specified complication; R06.00 Dyspnea, unspecified; I48.0 Paroxysmal atrial fibrillation; R11.0 Nausea; Z79.4 Long term (current) use of insulin
CPT/HCPCS: 36415; 80048; 80061; 80076; 82150; 83690; 83735; 83880; 84439; 84443; 85025

== ENCOUNTER 2024-01-01 14:20 | Outpatient (CLI) | payer MEDICARE, OTHER, SELFPAY ==
--- NOTE | 2024-01-01 14:23 | US_ITS ---
FINAL REPORT TECHNIQUE: Real-time grayscale and color ultrasound of the thyroid was performed. CLINICAL HISTORY: elevated TSH, hypothyroidism COMPARISON: None FINDINGS: The thyroid gland measures 46 x 18 x 13 mm on the right and 41 x 18 x 14 mm on the left. The isthmus measures 5 mm. The parenchyma is unremarkable . Nodules: There is a 3 mm nodule in the right lobe of the thyroid, TR 3. IMPRESSION: TR 3 right thyroid nodule. No follow-up required per TI-RADS criteria. Reviewed, Interpreted and Dictated by Trell Isabel MD Transcribed by Janel Davis Authenticated and [facility]
== END 2024-01-01 23:59 | disposition home or self-care (01) ==
LOC: RAD 14:21
PROVIDERS: PCP Family Medicine; Visit Provider Physician Assistant
DX: E03.9 Hypothyroidism, unspecified (principal); R79.89 Other specified abnormal findings of blood chemistry
CPT/HCPCS: 76536

== ENCOUNTER 2024-07-04 08:04 | Day surgery (SDC) | payer MEDICARE, OTHER, SELFPAY ==
[2024-07-04] VITALS (12 sets, daily range): BP systolic 100–206; BP diastolic 46–108; PULSE 46–84; RESP 16–19; TEMP 36.6; O2SAT 91–100; BMI 30.3
--- NOTE | 2024-07-04 07:08 | IR_ITS ---
APPROVED REPORT Patient Location: Outpatient [facility] Printing Supplies: VANCE Kohli RT (R) PROCEDURES Selective coronary angiogram Drug-eluting stent deployment to the proximal circumflex artery Drug-eluting stent deployment to the proximal LAD INDICATION Coronary artery disease, Elevated troponin, Accelerated angina pectoris Informed consent was obtained prior to the procedure. COMPLICATIONS NONE Estimated Blood Loss: LESS THAN 10 ML TECHNIQUE One percent lidocaine was used to anesthetize the right groin. The right femoral artery was accessed via the Seldinger technique. A 4-Bahraini sheath was placed in the right femoral artery. The JL-4 and JR-4 catheter was also used to perform selective coronary angiogram. Following this the 4 [place] sheath was exchanged for a 6 [place] sheath therapeutic Was administered giving a therapeutic ACT. A JL 4 guide catheter was placed in the left main artery and a wire placed in the LAD and 1 into the circumflex artery. A 4 mm x 12 mm [place] frontier stent was deployed at 25 nick in the proximal circumflex artery reducing the severe stenosis to 0%. There was jailing of the LAD therefore a 2 mm x 12 mm balloon was deployed at 16 nick to open the struts going into the LAD. This was followed by a 3 mm x 8 mm [place] frontier stent deployed at 25 nick reducing the stenosis to 0%. ZEV-3 flow was present before and after the procedure. Following this the JR4 catheter was used to perform selective angiography of what was known to be a small nondominant vestigial right coronary artery. At the end of the procedure the apparatus was removed the groin is reprepped closure change sheath was removed hemostasis was achieved using Perclose device patient was transferred to the postop putting in stable condition ANGIOGRAPHIC RESULTS The left main artery Patent The left anterior descending artery Has an ostial 70% stenosis followed by additional 50 to 60% stenosis immediately proximal to the bifurcation of the first diagonal artery. The first diagonal artery has proximal 70 and additional proximal 70% stenosis. The remaining LAD is widely patent The circumflex artery Large dominant has a stent in the ostial proximal segment which has 70 to 80% in-stent restenosis The right coronary artery Vestigial and patent The TINAJERO ventriculogram reveals Not performed The left ventricular end-diastolic pressure Not measured IMPRESSION Severe two-vessel coronary artery disease as described above Successful stenting of the proximal dominant circumflex artery severe disease reduced to 0% with 1 drug-eluting stent Successful stenting of the proximal LAD severe disease reduced to 0% with 1 drug-eluting stent Persistent moderate disease in the LAD which is best managed medically PLAN 1. Dual antiplatelet therapy 2. Cardiac rehabilitation 3. Avoidance of tobacco products 4. Risk factor modification 5. LDL less than 55 to be achieved with high intensity statin Electronically signed by : Linwood Granger MD 07/04/2024 10:11:15
[2024-07-04 08:46] LABS: Basophils # 0.1 K/mm3 (0-0.2); Basophils % 0.7 % (0.1-2.0); Eosinophils # 0.8 K/mm3 (0.0-0.4); Eosinophils % 8.4 % (0.1-12.0); Hematocrit 36.5 % (37.0-47.0); Hemoglobin 12.2 g/dL (12.2-16.2); Lymphocytes # 2.5 K/mm3 (0.7-4.5); Lymphocytes % 24.8 % (10-50); Mean Corpuscular HGB Conc 33.5 g/dL (31.8-35.4); Mean Corpuscular Hemoglobin 32.4 pg (27.0-31.2); Mean Corpuscular Volume 96.6 fl (81-99); Mean Platelet Volume 7.2 fl (7.4-10.4); Monocytes # 0.5 K/mm3 (0.1-1.0); Monocytes % 5.1 % (1.7-9.3); Neutrophils % 60.9 % (37.0-80.0); Platelet Count 277 K/mm3 (142-424); Red Blood Count 3.78 M/mm3 (4.20-5.40); White Blood Count 9.8 K/mm3 (4.8-10.8)
[2024-07-04 08:52] LABS: Chloride 106 mmol/L (98-107); Potassium 4.4 mmoL/L (3.5-5.1); Sodium 139 mmol/L (136-145)
[2024-07-04 08:55] LABS: Anion Gap 10.4 mEq/L (5-15); Blood Urea Nitrogen 25 mg/dl (7-17); Carbon Dioxide 27 mmol/L (22.0-30.0); Creatinine Clearance Estimated 44 mL/min (50-200); Estimated Glomerular Filt Rate 40 ml/min (>60); GFR (African American) 48 ML/MIN (>60); Glucose 145 mg/dl (74-100)
[2024-07-04] MEDS: diphenhydrAMINE 50MG/ML VIAL 50 MG IV (09:17)
[2024-07-04] MEDS: LIDOCAINE 1% 10ML MDV 20 ML IJ (09:17)
[2024-07-04] MEDS: HEPARIN 1,000 UNITS/ML 10ML VIAL (CATH LAB) 10000 UNIT IV (09:18)
[2024-07-04] MEDS: VERAPAMIL 2.5MG/ML 2ML VIAL 2.5 MG IV (09:18)
[2024-07-04] MEDS: 0.9 % SODIUM CHLORIDE 500 ML 25 ML IV (09:18)
[2024-07-04] MEDS: MIDAZOLAM HCL 1MG/ML 5ML VIAL 1 MG IV (09:19)
[2024-07-04] MEDS: HEPARIN 1,000 UNITS/500ML NS (CATH LAB) 3000 UNIT IV (09:19)
[2024-07-04] MEDS: FENTANYL 100MCG/2ML VIAL 50 MCG IV (09:19)
[2024-07-04] MEDS: CLOPIDOGREL 75MG TAB 75 MG PO (10:12)
[2024-07-04] MEDS: LISINOPRIL 20MG TABLET 20 MG PO (10:53)
[2024-07-04] MEDS: HYDRALAZINE 20MG/ML VIAL 20 MG IV (10:53)
[2024-07-04] MEDS: METOPROLOL TARTRATE 50MG TABLET 25 MG PO (10:54)
[2024-07-04] MEDS: IOPAMIDOL-370 (76%);100ML BOTTLE 110 ML IV (11:24)
[2024-07-04 13:31] LABS: CATHL Activated Clotting Time 308 SEC (74-125)
== END 2024-07-04 13:08 | disposition home or self-care (01) ==
PROVIDERS: PCP Family Medicine; Visit Provider Internal Medicine
DX: I25.118 Atherosclerotic heart disease of native coronary artery with other forms of angina pectoris (principal); R79.89 Other specified abnormal findings of blood chemistry; R11.0 Nausea; Z79.4 Long term (current) use of insulin; Z79.899 Other long term (current) drug therapy; E11.9 Type 2 diabetes mellitus without complications; I48.0 Paroxysmal atrial fibrillation; Z95.5 Presence of coronary angioplasty implant and graft; N17.9 Acute kidney failure, unspecified; Z79.01 Long term (current) use of anticoagulants; E03.9 Hypothyroidism, unspecified
CPT/HCPCS: 80048; 85025; 85347; 92928; 93458; 99152; 99153; C1725; C1760; C1769; C1874; C9600; J0360; J1200; J1644; J2250; J3010; Q9967

== ENCOUNTER 2024-07-08 13:22 | Outpatient (CLI) | payer MEDICARE, OTHER, SELFPAY ==
[2024-07-08 13:26] LABS: MANUAL DIFFERENTIAL MANUAL DIFFERENTIAL (MANUAL DIFF)
[2024-07-08 13:38] LABS: Basophils # 0.1 K/mm3 (0-0.2); Basophils % 1.1 % (0.1-2.0); Eosinophils # 0.4 K/mm3 (0.0-0.4); Eosinophils % 3.8 % (0.1-12.0); Hematocrit 40.7 % (37.0-47.0); Hemoglobin 13.4 g/dL (12.2-16.2); Lymphocytes # 1.8 K/mm3 (0.7-4.5); Lymphocytes % 19.6 % (10-50); Mean Corpuscular HGB Conc 32.9 g/dL (31.8-35.4); Mean Corpuscular Hemoglobin 32.7 pg (27.0-31.2); Mean Corpuscular Volume 99.2 fl (81-99); Mean Platelet Volume 7.8 fl (7.4-10.4); Monocytes # 0.4 K/mm3 (0.1-1.0); Monocytes % 4.3 % (1.7-9.3); Neutrophils # 6.6 K/mm3 (1.8-7.8); Neutrophils % 71.3 % (37.0-80.0); Platelet Count 267 K/mm3 (142-424); Red Cell Distribution Width 14.4 % (11.5-17.5); White Blood Count 9.3 K/mm3 (4.8-10.8)
[2024-07-08 14:18] LABS: Anion Gap 16.6 mEq/L (5-15); Blood Urea Nitrogen 29 mg/dl (7-17); Calcium 9.1 mg/dl (8.4-10.2); Carbon Dioxide 25 mmol/L (22.0-30.0); Chloride 105 mmol/L (98-107); Estimated Glomerular Filt Rate 34 ml/min (>60); GFR (African American) 41 ML/MIN (>60); Glucose 231 mg/dl (74-100); Potassium 4.6 mmoL/L (3.5-5.1); Sodium 142 mmol/L (136-145)
[2024-07-08 14:42] LABS: Eosinophils % 6 % (0-3); Lymphocytes % 24 % (10-50); Monocytes % 2 % (2-9); Neutrophils % 68 % (42-76); Total Cells Counted 100
[2024-07-08 14:44] LABS: Platelet Estimate Normal; RBC Morphology Normal
== END 2024-07-08 23:59 | disposition home or self-care (01) ==
LOC: LAB 13:23
PROVIDERS: PCP Family Medicine; Visit Provider Internal Medicine
DX: I25.10 Atherosclerotic heart disease of native coronary artery without angina pectoris (principal)
CPT/HCPCS: 36415; 80048; 85007; 85014; 85018; 85048; 85049

== ENCOUNTER 2024-07-14 11:23 | Observation (INO) | payer MEDICARE, OTHER, SELFPAY ==
[2024-07-14] VITALS (19 sets, daily range): BP systolic 88–189; BP diastolic 50–85; PULSE 62–76; RESP 9–18; TEMP 36.6–36.9; O2SAT 95–98; BMI 29.2; BMI 28.8
[2024-07-14 12:07] LABS: Lactate Venous 1.8 mmol/L (0.4-2.0); VBG Base Excess -3.5 mmol/L (-2.4-2.3); VBG HCO3 22.3 mmol/L (23-30); VBG Oxygen Saturation 81.8 % (50-70); VBG PCO2 42.3 mmol/L (35-51); VBG PH 7.34 mmol/L (7.31-7.41); VBG Total CO2 23.6 mmol/L (23-27)
[2024-07-14 12:09] LABS: Albumin Level 4.6 g/dl (3.5-5.0); Basophils # 0.1 K/mm3 (0-0.2); Chloride 107 mmol/L (98-107); Eosinophils # 0.6 K/mm3 (0.0-0.4); Eosinophils % 7.8 % (0.1-12.0); Hematocrit 39.9 % (37.0-47.0); Lymphocytes # 1.7 K/mm3 (0.7-4.5); Lymphocytes % 20.5 % (10-50); Mean Corpuscular HGB Conc 32.7 g/dL (31.8-35.4); Mean Corpuscular Hemoglobin 32.7 pg (27.0-31.2); Mean Corpuscular Volume 100.1 fl (81-99); Mean Platelet Volume 7.9 fl (7.4-10.4); Monocytes # 0.4 K/mm3 (0.1-1.0); Monocytes % 4.7 % (1.7-9.3); Neutrophils # 5.4 K/mm3 (1.8-7.8); Platelet Count 303 K/mm3 (142-424); Potassium 5.3 mmoL/L (3.5-5.1); Red Blood Count 3.98 M/mm3 (4.20-5.40); Red Cell Distribution Width 14.2 % (11.5-17.5); Sodium 140 mmol/L (136-145); White Blood Count 8.2 K/mm3 (4.8-10.8)
[2024-07-14 12:12] LABS: Alanine Aminotransferase 21 U/L (12-78); Albumin/Globulin Ratio 1.2 (1.1-1.8); Alkaline Phosphatase 123 U/L (38-126); Anion Gap 14.3 mEq/L (5-15); Aspartate Amino Transferase 30 U/L (14-36); Bilirubin,Total 0.7 mg/dl (0.2-1.3); Blood Urea Nitrogen 43 mg/dl (7-17); Calcium 9.6 mg/dl (8.4-10.2); Carbon Dioxide 24 mmol/L (22.0-30.0); Creatinine Clearance Estimated 34 mL/min (50-200); Estimated Glomerular Filt Rate 29 ml/min (>60); GFR (African American) 35 ML/MIN (>60); Globulin 3.8 g/dL (1.3-3.2); Glucose 170 mg/dl (74-100); Lipase 38 U/L (23-300); Magnesium 1.8 mg/dl (1.6-2.3); Total Protein,Serum 8.4 g/dl (6.3-8.2)
[2024-07-14] MEDS: 0.9 % SODIUM CHLORIDE 1000ML 1,000 ML 999 ML IV (12:13)
[2024-07-14] MEDS: KETOROLAC 30MG/ML VIAL 15 MG IV (12:13)
[2024-07-14] MEDS: METOCLOPRAMIDE HCL 10MG/2ML VIAL 5 MG IVP (12:13)
[2024-07-14] MEDS: ACETAMINOPHEN 1,000MG/100ML VIAL 1000 MG IV (12:13)
--- NOTE | 2024-07-14 12:15 | ED_ITS ---
Discharge Plan Disposition Patient Disposition: Admitted Prescriptions Prescriptions: No Action atorvastatin 80 mg tablet 80 mg PO DAILY lisinopril 10 mg tablet 10 mg PO DAILY (DME) pen needle, diabetic [Droplet Pen Needle] 31 gauge x 5/16 needle See Rx Instructions .ROUTE .MEDSUPPLY Qty: 1200 Rx Instructions: As directed (DME) Accu-Chek Amanda Plus test strp Strip See Rx Instructions .ROUTE .MEDSUPPLY Qty: 10 Rx Instructions: As directed clopidogrel 75 mg tablet 75 mg PO DAILY (DME) lancets [Accu-Chek Softclix Lancets] Misc See Rx Instructions .ROUTE .MEDSUPPLY Qty: 100 Rx Instructions: As directed cholecalciferol (vitamin D3) 10 mcg (400 unit) capsule 10 mcg PO DAILY levothyroxine 50 mcg tablet 50 mcg PO DAILY ondansetron HCl 4 mg tablet 4 mg PO DAILY promethazine 12.5 mg tablet 12.5 mg PO ONCE cefuroxime axetil 500 mg tablet 500 mg PO ONCE Jardiance 25 mg tablet 25 mg PO DAILY Xarelto 15 mg tablet 15 mg PO DAILY Qty: 30 5RF Rx Instructions: must administer with evening meal metoprolol tartrate 25 mg tablet 25 mg PO BID Qty: 60 5RF metformin 1,000 MG tablet 1,000 mg PO BID vitamin U27-kritv acid 500-400 mcg Tablet 1 tab PO DAILY Rx Instructions: administer with a meal insulin glargine [Lantus Solostar U-100 Insulin] 100 unit/mL (3 mL) insulin pen 40 unit SQ HS famotidine 20 mg Tablet 20 mg PO BID Qty: 0 0RF insulin lispro [Humalog U-100 Insulin] 100 unit/mL Solution 0 unit SQ ACHS Qty: 0 0RF spironolactone 25 mg Tablet 25 mg PO DAILY Qty: 0 0RF ferrous sulfate 325 mg (65 mg iron) tablet 325 mg PO BID Qty: 60 0RF Referrals Follow up/Referrals: Cosme Garcia MD [Primary Care Provider] - See instructions Clinical Impressions Clinical Impression: KALIA (acute kidney injury), Nausea, Hypothyroidism, Dizziness, Abdominal pain Print Language Print Language: Kinyarwanda Discharge ED Provider: Ericka Dueñas General Adult HPI <Ericka Dueñas DO - Last Filed: 07/14/24 15:18> General Chief complaint: Weakness Stated complaint: stints 07/04 low blood pressure Time Seen by Provider: 07/14/24 11:27 Mode of Arrival: Wheelchair Source of Information: Relative Limitations: No Limitations Description of Symptoms (Recalled from ER Triage Doc. by RN): Pt. presents to the ED accompained by her daughter. She states she had stents placed in her heart last week and has had dizziness and fatigue since then. She states she took her BP at home at it was low, 90/52 and became concerned. She also states she has been having nausea and vomiting x6 weeks. They have discontinued her amiodarone and aspirin. Her daughter states she has had multiple falls in the last few months. History of Present Illness HPI narrative: This patient is a 74-year-old female with a history of CAD status post stenting, most recently in June, carotid artery disease status post carotid endarterectomy and stenting, peripheral arterial disease, hypertension, hyperlipidemia, hypothyroidism, prior TIA, and paroxysmal atrial fibrillation presenting to the emergency department for evaluation with concern for lightheadedness, fatigue, nausea, poor appetite, and low blood pressure at home. According to the patient, she has been having lightheadedness and nausea for the last 6 weeks and has not been feeling very well. As a result, she has had poor oral intake and has overall been very weak at home with multiple falls over the last few months. She notes that she has been seen outpatient for this as well as by cardiology and they thought maybe it could be related to her amiodarone, so they took her off this but she continues to feel bad. She notes to the also thought it could be related to her heart, so she underwent recent cath at the end of June and did have blockages for which she needed stents. She also notes she is awaiting outpatient renal artery ultrasound and carotid ultrasound. She notes she is having some generalized nonspecific abdominal pain and she has had alternating episodes of constipation and diarrhea. On Thursday 2 days ago she had some diarrhea, but she has not had a bowel movement since. She notes she is not passing very much gas. She notes that these symptoms have all been waxing waning over the last 6 weeks, but whenever they flareup at their worst she gets really severe light sensitivity. She denies any true visual changes, numbness, tingling, unilateral weakness, vertigo type symptoms, chest pain, shortness of breath, leg swelling, or other concerns. Related Data Home Medications ?Medication ?Instructions ?Recorded ?Confirmed metformin 1,000 mg tablet 1,000 mg PO BID 01/02/21 07/14/24 atorvastatin 80 mg tablet 80 mg PO DAILY 02/03/22 07/14/24 blood sugar diagnostic (Accu-Chek #10 ea 02/03/22 07/14/24 Amanda Plus test strips) clopidogrel 75 mg tablet 75 mg PO DAILY 02/03/22 07/14/24 lancets (Accu-Chek Softclix #100 ea 02/03/22 07/14/24 Lancets) lisinopril 10 mg tablet 10 mg PO DAILY 02/03/22 07/14/24 pen needle, diabetic 31 gauge x #1,200 ea 02/03/22 07/14/2412/23 (Droplet Pen Needle) vitamin B12 500 mcg-folic acid 400 1 tab PO DAILY Supplement 06/29/23 07/14/24 mcg tablet insulin glargine 100 unit/mL (3 40 unit SQ HS 10/01/23 07/14/24 mL) subcutaneous pen (Lantus Solostar U-100 Insulin) ondansetron HCl 4 mg tablet 4 mg PO DAILY 12/24/23 07/14/24 cholecalciferol (vitamin D3) 10 10 mcg PO DAILY 03/31/24 07/14/24 mcg (400 unit) capsule levothyroxine 50 mcg tablet 50 mcg PO DAILY 03/31/24 07/14/24 cefuroxime axetil 500 mg tablet 500 mg PO ONCE 06/27/24 07/14/24 empagliflozin 25 mg tablet 25 mg PO DAILY 06/27/24 07/14/24 (Jardiance) promethazine 12.5 mg tablet 12.5 mg PO ONCE 06/27/24 07/14/24 Previous Rx's ?Medication ?Instructions ?Recorded famotidine 20 mg tablet 20 mg PO BID #0 tabs 10/09/23 ferrous sulfate 325 mg (65 mg 325 mg PO BID #60 tabs 10/09/23 iron) tablet insulin lispro 100 unit/mL 0 unit (0 mL) SQ ACHS #0 mL 10/09/23 subcutaneous solution (Humalog U-100 Insulin) spironolactone 25 mg tablet 25 mg PO DAILY #0 tabs 10/09/23 metoprolol tartrate 25 mg tablet 25 mg PO BID #60 tabs 06/22/24 rivaroxaban 15 mg tablet (Xarelto) 15 mg PO DAILY #30 tabs 07/11/24 Allergies Allergy/AdvReac Type Severity Reaction Status Date / Time No Known Allergies Allergy Verified 07/14/24 11:35 PFSH <Ericka Dueñas DO - Last Filed: 07/14/24 15:18> [facility], [facility] Disclaimer: The information contained in this section may have been updated after the patient was seen, as this information can be updated by other users. Medical History HTN (hypertension) Frequent falls Carotid artery disease PAD (peripheral artery disease) Elevated TSH Paroxysmal A-fib Coronary artery disease CHI (closed head injury) Atrial fibrillation with rapid ventricular response History of TIA (transient ischemic attack) Closed fracture of left patella Vocal cord paralysis Cerebrovascular accident Hyperlipidemia Hypertensive cardiovascular disease Diabetes mellitus Surgical History History of cardiac cath Stented coronary artery History of colonoscopy History of carotid endarterectomy Family History Other Coronary artery disease Diabetes Heart attack Hyperlipidemia Hypertension Stroke Social History Smoking Status: Never smoker alcohol intake: never substance use type: denies use current occupational status: retired Travel in the last 8 weeks: None household members: family housing: house current occupational exposures/hazards: No caffeine: Yes Other Medical History Have you received the Flu Vaccine for this season: No Have you received the Pneumonia Vaccine: No <Ericka Dueñas DO - Last Filed: 07/14/24 15:18> ROS Obtained: Yes All systems reviewed & no additional complaints except as documented Physical Exam <Ericka Dueñas DO - Last Filed: 07/14/24 15:18> General General appearance: alert Comment: Lying in bed, uncomfortable appearing. She has a towel covering her face because the light is hurting her eyes. Head Head exam: atraumatic and normocephalic Eye Eye exam: Present normal appearance, PERRL and EOMI ENT ENT exam: Present mucous membranes dry and normal external ear exam Neck Neck exam: Present normal inspection, full ROM and trachea midline; Absent tenderness Chest Chest inspection: Present normal inspection and symmetric chest wall rise; Absent tenderness Respiratory Respiratory exam: Present normal lung sounds bilaterally; Absent respiratory distress, wheezes, stridor or accessory muscle use Cardiovascular Cardiovascular exam: Present regular rate and normal rhythm Abdominal Exam Abdominal exam: Present soft and tenderness (Mild generalized); Absent distention, guarding, rebound or rigidity Extremities Exam Extremities exam: Present normal inspection, full ROM and normal capillary refill; Absent tenderness or edema Back Exam Back exam: Present normal inspection and full ROM; Absent tenderness Neurological Exam Neurological exam: Present alert, oriented X3, CN II-XII intact and normal gait; Absent motor sensory deficit Psychiatric Psychiatric exam: Present normal affect and normal mood Skin Skin exam: Present warm and dry Medical Decision Making <Ericka Dueñas DO - Last Filed: 07/14/24 15:18> Medical Records Medical records reviewed: Yes I reviewed the patient's medical records. Screening: Per USPSTF and CDC recommendations, given the prevalence of disease in our region, it is our hospital?s policy to screen for HIV and viral Hepatitis for all patients aged 18 and over and those with ongoing risk factors. Dae Inquiry Pt receiving controlled substance: No Vital Signs: 07/14/24 11:35 07/14/24 12:02 07/14/24 12:27 Temperature 98.4 F Temperature Source Oral Pulse Rate 67 67 Pulse Rate [Orthostatic Lying Right Brachial] Pulse Rate [Orthostatic Sitting Right Brachial] Pulse Rate [Orthostatic Standing Right Brachial] Pulse Rate [Right Brachial] 74 Respiratory Rate 16 13 13 Blood Pressure 124/67 105/56 L Blood Pressure [Orthostatic Lying Right Arm] Blood Pressure [Orthostatic Sitting Right Arm] Blood Pressure [Orthostatic Standing Right Arm] Blood Pressure [Right Arm] 166/82 H Blood Pressure Mean 86 72 Blood Pressure Mean [Right Arm] 110 Blood Pressure Source [Right Arm] Automatic Cuff Blood Pressure Position [Right Arm] Sitting 02 Sat by Pulse Oximetry 97 96 96 Oxygen Delivery Method Room Air 07/14/24 12:29 07/14/24 12:30 07/14/24 12:32 Temperature Temperature Source Pulse Rate 62 76 Pulse Rate [Orthostatic Lying Right Brachial] 65 Pulse Rate [Orthostatic Sitting Right Brachial] 70 Pulse Rate [Orthostatic Standing Right Brachial] 72 Pulse Rate [Right Brachial] Respiratory Rate 13 13 Blood Pressure 88/50 L 99/53 L Blood Pressure [Orthostatic Lying Right Arm] 105/56 L Blood Pressure [Orthostatic Sitting Right Arm] 88/50 L Blood Pressure [Orthostatic Standing Right Arm] 99/53 L Blood Pressure [Right Arm] Blood Pressure Mean 62 67 Blood Pressure Mean [Right Arm] Blood Pressure Source [Right Arm] Blood Pressure Position [Right Arm] 02 Sat by Pulse Oximetry 97 97 Oxygen Delivery Method 07/14/24 13:01 07/14/24 13:30 07/14/24 14:03 Temperature Temperature Source Pulse Rate 66 68 67 Pulse Rate [Orthostatic Lying Right Brachial] Pulse Rate [Orthostatic Sitting Right Brachial] Pulse Rate [Orthostatic Standing Right Brachial] Pulse Rate [Right Brachial] Respiratory Rate 12 16 16 Blood Pressure 128/71 128/77 162/67 H Blood Pressure [Orthostatic Lying Right Arm] Blood Pressure [Orthostatic Sitting Right Arm] Blood Pressure [Orthostatic Standing Right Arm] Blood Pressure [Right Arm] Blood Pressure Mean 82 94 89 Blood Pressure Mean [Right Arm] Blood Pressure Source [Right Arm] Blood Pressure Position [Right Arm] 02 Sat by Pulse Oximetry 96 97 97 Oxygen Delivery Method 07/14/24 14:30 07/14/24 15:00 07/14/24 15:30 Temperature Temperature Source Pulse Rate 71 68 67 Pulse Rate [Orthostatic Lying Right Brachial] Pulse Rate [Orthostatic Sitting Right Brachial] Pulse Rate [Orthostatic Standing Right Brachial] Pulse Rate [Right Brachial] Respiratory Rate 12 11 L 14 Blood Pressure 168/73 H 189/83 H 183/85 H Blood Pressure [Orthostatic Lying Right Arm] Blood Pressure [Orthostatic Sitting Right Arm] Blood Pressure [Orthostatic Standing Right Arm] Blood Pressure [Right Arm] Blood Pressure Mean 91 95 117 Blood Pressure Mean [Right Arm] Blood Pressure Source [Right Arm] Blood Pressure Position [Right Arm] 02 Sat by Pulse Oximetry 98 96 97 Oxygen Delivery Method 07/14/24 16:00 Temperature Temperature Source Pulse Rate 63 Pulse Rate [Orthostatic Lying Right Brachial] Pulse Rate [Orthostatic Sitting Right Brachial] Pulse Rate [Orthostatic Standing Right Brachial] Pulse Rate [Right Brachial] Respiratory Rate 13 Blood Pressure 184/77 H Blood Pressure [Orthostatic Lying Right Arm] Blood Pressure [Orthostatic Sitting Right Arm] Blood Pressure [Orthostatic Standing Right Arm] Blood Pressure [Right Arm] Blood Pressure Mean 112 Blood Pressure Mean [Right Arm] Blood Pressure Source [Right Arm] Blood Pressure Position [Right Arm] 02 Sat by Pulse Oximetry 95 Oxygen Delivery Method Lab Data Lab results reviewed: Yes I reviewed the patient's lab results. Lab Results 07/14/24 11:42: VBG pH 7.34, VBG pCO2 42.3, VBG pO2 48.0 H, VBG HCO3 22.3 L, VBG Total CO2 23.6, VBG O2 Saturation 81.8 H, VBG Base Excess -3.5 L, VBG Lactic Acid 1.8 07/14/24 11:55: WBC 8.2, RBC 3.98 L, Hgb 13.0, Hct 39.9, MCV 100.1 H, MCH 32.7 H , MCHC 32.7, RDW 14.2, Plt Count 303, MPV 7.9, Neut % (Auto) 66.0, Lymph % (Auto) 20.5, [place] % (Auto) 4.7, Eos % (Auto) 7.8, Baso % (Auto) 1.0, Neut # (Auto) 5.4, Lymph # (Auto) 1.7, [place] # (Auto) 0.4, Eos # (Auto) 0.6 H, Baso # (Auto) 0.1, Sodium 140, Potassium 5.3 H, Chloride 107, Carbon Dioxide 24, Anion Gap 14.3, BUN 43 H, Creatinine 1.70 H, Estimated Creat Clear 34, Estimated GFR 29 L, Est GFR ( Amer) 35 L, Glucose 170 H, Calcium 9.6, Phosphorus 4.0, Magnesium 1.8, Total Bilirubin 0.7, AST 30, ALT 21, Alkaline Phosphatase 123, Troponin I < 0.01, Total Protein 8.4 H D, Albumin 4.6, Globulin 3.8 H, Albumin/Globulin Ratio 1.2, Lipase 38, TSH 77.00 H, Thyroxine (T4) 7.1, HIV 1&2 Antibody Rapid Nonreactive 07/14/24 12:15: Lactate 1.3 07/14/24 14:04: Urine Color Yellow, Urine Appearance Clear, Urine pH 5.5, Ur Specific [place] 1.020, Urine Protein Negative, Urine Glucose (UA) 3+, Urine Ketones Negative, Urine Blood Negative, Urine Nitrate Negative, Urine Bilirubin Negative, Urine Urobilinogen 0.2, Ur Leukocyte Esterase Negative, Urine RBC None, Urine WBC Occasional, Ur Squamous Epith Cells 3-5, Urine Bacteria Trace, Urine Yeast Occasional 07/14/24 14:44: Troponin I < 0.01 07/14/24 11:55 07/14/24 11:55 Orders (Tests/Meds): ED MEDICATIONS Discontinued Medications Generic Name Dose Route Start Last Admin Trade Name Freq PRN Reason Stop Dose Admin Acetaminophen 1,000 mg 07/14/24 11:46 07/14/24 12:13 Acetaminophen 1,000mg/100ml Vial IV 07/14/24 11:47 1,000 mg ONCE ONE Administration Sodium Chloride 1,000 mls @ 999 mls/hr 07/14/24 11:45 07/14/24 12:13 Sod Chlor 0.9% 1000ml Bag IV 07/14/24 12:45 999 mls/hr .Q1H1M ONE Administration Iopamidol 160 ml 07/14/24 14:12 07/14/24 14:14 Iopamidol-370 (76%);100ml Bottle IV 07/14/24 14:13 160 ml ONCE ONE Administration Ketorolac Tromethamine 15 mg 07/14/24 11:45 07/14/24 12:13 Ketorolac 30mg/Ml Vial IV 07/14/24 11:46 15 mg ONCE ONE Administration Metoclopramide HCl 5 mg 07/14/24 11:45 07/14/24 12:13 Metoclopramide Hcl 10mg/2ml Vial IVP 07/14/24 11:46 5 mg ONCE ONE Administration Sodium Chloride 10 ml 07/14/24 14:12 07/14/24 14:13 Sodium Chloride 0.9% 10ml Syr (Rad Only) IV 07/14/24 14:13 10 ml ONCE ONE Administration Sodium Chloride 50 ml 07/14/24 14:12 07/14/24 14:13 0.9 % Sodium Chloride 50 Ml Vial IV 07/14/24 14:13 50 ml ONCE ONE Administration ORDERS Category Date Time Status CT angio abdomen pelvis Stat Cat Scan 07/14/24 12:[address] angio head Stat Cat Scan 07/14/24 12:[address] angio neck Stat Cat Scan 07/14/24 12:[address] cervical spine wo con Stat Cat Scan 07/14/24 13:[address] head/brain wo con Stat Cat Scan 07/14/24 12:48 Completed CXR 2 view (NOT portable) [XR chest 2V] Stat Exams 07/14/24 13:20 Completed CBC w/Auto Diff [Complete Blood Count Auto Diff] Stat Lab 07/14/24 11:55 Completed CMP [Comprehensive Metabolic Panel] Stat Lab 07/14/24 11:55 Completed HIV (1&2) Antibody Rapid Stat Lab 07/14/24 11:55 Completed Hep C Ab with Reflex to RNA Stat Lab 07/14/24 11:55 Received Lactic Acid Stat Lab 07/14/24 12:15 Completed Lipase Stat Lab 07/14/24 11:55 Completed MAG [Magnesium] Stat Lab 07/14/24 11:55 Completed PHOS [Phosphorous] Stat Lab 07/14/24 11:55 Completed T4 (Thyroxine) Stat Lab 07/14/24 11:55 Completed TSH [Thyroid Stimulating Hormone] Stat Lab 07/14/24 11:55 Completed Trop I [Troponin I] Stat Lab 07/14/24 11:55 Completed Troponin I Q3H Lab 07/14/24 14:44 Completed Troponin I Q3H Lab 07/14/24 17:45 Ordered UA [Urinalysis and Microscopic] Stat Lab 07/14/24 14:04 Completed VBG [Venous Blood Gas] Stat RT 07/14/24 11:42 Completed ECG Data Tracing #1: I reviewed this ECG and interpreted as documented below: Normal sinus rhythm with a ventricular rate of 73 bpm. Left bundle branch block noted. No acute ST changes concerning for ischemia. No significant changes from prior EKG ECG initial impression date: 07/14/24 ECG initial impression time: 11:42 Medical Decision Narrative: In summary, this patient is a 74-year-old female presenting to the Emergency Department for evaluation of low blood pressure readings at home in the setting of 6 weeks of lightheadedness, nausea, poor appetite, fatigue, frequent falls. Differential diagnoses considered include but are not limited to medication adverse reaction, dehydration, KALIA, urinary tract infection, CVA, gastritis, gastroparesis, peptic ulcer disease, intestinal ischemia. Ruling out the most morbid conditions drove assessment. It should be noted patient's history includes extensive cardiovascular history which may or may not be at goal therapy. This complicates all aspects of care by increasing patient's risk for morbidity. I reviewed patient's past medical records and noted previous cardiology evaluations including stenting in June. Also noted recent note from 07/11/2024 at which point they changed her medications given her chronic symptoms. Patient has had significantly elevated TSH on recent lab evaluation, unclear if this has been addressed by her primary care provider. On exam, the patient is lying in bed in no acute distress but she certainly looks like she does not feel well. Vitals are reassuring on cardiac telemetry. She has dry mucous membranes, some abdominal tenderness. She has no focal neurologic deficits. Workup included broad lab evaluation to evaluate for infectious, metabolic, cardiac causes of her symptoms. EKG was obtained and is reassuring without significant change from prior EKG. Patient was given a bolus of IV fluids as well as IV Reglan, Toradol, acetaminophen to assess for symptomatic improvement. On reassessment, the patient is lying in bed in no acute distress. She continues to be neurologically intact. She did have low blood pressure with orthostatic vital sign changes without significant change in heart rate. She is on metoprolol. Labs demonstrated worsening kidney function with creatinine up to 1.7. She also has very mild hyperkalemia without significant EKG change. She continues to have elevated TSH, though slightly improved from prior. TSH today 77. T4 7.1. Based on discussions with the family and the fact that they do not feel comfortable taking the patient home since her symptoms have continued to worsen despite outpatient evaluations and based on how the patient looked initially with hypotension, dry mucous membranes, and overall appearance that she feels very unwell, I feel that she would benefit from admission. I signed out to Dr. Christensen pending CT reads. <Marichuy Christensen MD - Last Filed: 07/14/24 17:21> Vital Signs: 07/14/24 11:35 07/14/24 12:02 07/14/24 12:27 Temperature 98.4 F Temperature Source Oral Pulse Rate 67 67 Pulse Rate [Orthostatic Lying Right Brachial] Pulse Rate [Orthostatic Sitting Right Brachial] Pulse Rate [Orthostatic Standing Right Brachial] Pulse Rate [Right Brachial] 74 Respiratory Rate 16 13 13 Blood Pressure 124/67 105/56 L Blood Pressure [Orthostatic Lying Right Arm] Blood Pressure [Orthostatic Sitting Right Arm] Blood Pressure [Orthostatic Standing Right Arm] Blood Pressure [Right Arm] 166/82 H Blood Pressure Mean 86 72 Blood Pressure Mean [Right Arm] 110 Blood Pressure Source [Right Arm] Automatic Cuff Blood Pressure Position [Right Arm] Sitting 02 Sat by Pulse Oximetry 97 96 96 Oxygen Delivery Method Room Air 07/14/24 12:29 07/14/24 12:30 07/14/24 12:32 Temperature Temperature Source Pulse Rate 62 76 Pulse Rate [Orthostatic Lying Right Brachial] 65 Pulse Rate [Orthostatic Sitting Right Brachial] 70 Pulse Rate [Orthostatic Standing Right Brachial] 72 Pulse Rate [Right Brachial] Respiratory Rate 13 13 Blood Pressure 88/50 L 99/53 L Blood Pressure [Orthostatic Lying Right Arm] 105/56 L Blood Pressure [Orthostatic Sitting Right Arm] 88/50 L Blood Pressure [Orthostatic Standing Right Arm] 99/53 L Blood Pressure [Right Arm] Blood Pressure Mean 62 67 Blood Pressure Mean [Right Arm] Blood Pressure Source [Right Arm] Blood Pressure Position [Right Arm] 02 Sat by Pulse Oximetry 97 97 Oxygen Delivery Method 07/14/24 13:01 07/14/24 13:30 07/14/24 14:03 Temperature Temperature Source Pulse Rate 66 68 67 Pulse Rate [Orthostatic Lying Right Brachial] Pulse Rate [Orthostatic Sitting Right Brachial] Pulse Rate [Orthostatic Standing Right Brachial] Pulse Rate [Right Brachial] Respiratory Rate 12 16 16 Blood Pressure 128/71 128/77 162/67 H Blood Pressure [Orthostatic Lying Right Arm] Blood Pressure [Orthostatic Sitting Right Arm] Blood Pressure [Orthostatic Standing Right Arm] Blood Pressure [Right Arm] Blood Pressure Mean 82 94 89 Blood Pressure Mean [Right Arm] Blood Pressure Source [Right Arm] Blood Pressure Position [Right Arm] 02 Sat by Pulse Oximetry 96 97 97 Oxygen Delivery Method 07/14/24 14:30 07/14/24 15:00 07/14/24 15:30 Temperature Temperature Source Pulse Rate 71 68 67 Pulse Rate [Orthostatic Lying Right Brachial] Pulse Rate [Orthostatic Sitting Right Brachial] Pulse Rate [Orthostatic Standing Right Brachial] Pulse Rate [Right Brachial] Respiratory Rate 12 11 L 14 Blood Pressure 168/73 H 189/83 H 183/85 H Blood Pressure [Orthostatic Lying Right Arm] Blood Pressure [Orthostatic Sitting Right Arm] Blood Pressure [Orthostatic Standing Right Arm] Blood Pressure [Right Arm] Blood Pressure Mean 91 95 117 Blood Pressure Mean [Right Arm] Blood Pressure Source [Right Arm] Blood Pressure Position [Right Arm] 02 Sat by Pulse Oximetry 98 96 97 Oxygen Delivery Method 07/14/24 16:00 Temperature Temperature Source Pulse Rate 63 Pulse Rate [Orthostatic Lying Right Brachial] Pulse Rate [Orthostatic Sitting Right Brachial] Pulse Rate [Orthostatic Standing Right Brachial] Pulse Rate [Right Brachial] Respiratory Rate 13 Blood Pressure 184/77 H Blood Pressure [Orthostatic Lying Right Arm] Blood Pressure [Orthostatic Sitting Right Arm] Blood Pressure [Orthostatic Standing Right Arm] Blood Pressure [Right Arm] Blood Pressure Mean 112 Blood Pressure Mean [Right Arm] Blood Pressure Source [Right Arm] Blood Pressure Position [Right Arm] 02 Sat by Pulse Oximetry 95 Oxygen Delivery Method Lab Data Lab Results 07/14/24 11:42: VBG pH 7.34, VBG pCO2 42.3, VBG pO2 48.0 H, VBG HCO3 22.3 L, VBG Total CO2 23.6, VBG O2 Saturation 81.8 H, VBG Base Excess -3.5 L, VBG Lactic Acid 1.8 07/14/24 11:55: WBC 8.2, RBC 3.98 L, Hgb 13.0, Hct 39.9, MCV 100.1 H, MCH 32.7 H , MCHC 32.7, RDW 14.2, Plt Count 303, MPV 7.9, Neut % (Auto) 66.0, Lymph % (Auto) 20.5, [place] % (Auto) 4.7, Eos % (Auto) 7.8, Baso % (Auto) 1.0, Neut # (Auto) 5.4, Lymph # (Auto) 1.7, [place] # (Auto) 0.4, Eos # (Auto) 0.6 H, Baso # (Auto) 0.1, Sodium 140, Potassium 5.3 H, Chloride 107, Carbon Dioxide 24, Anion Gap 14.3, BUN 43 H, Creatinine 1.70 H, Estimated Creat Clear 34, Estimated GFR 29 L, Est GFR ( Amer) 35 L, Glucose 170 H, Calcium 9.6, Phosphorus 4.0, Magnesium 1.8, Total Bilirubin 0.7, AST 30, ALT 21, Alkaline Phosphatase 123, Troponin I < 0.01, Total Protein 8.4 H D, Albumin 4.6, Globulin 3.8 H, Albumin/Globulin Ratio 1.2, Lipase 38, TSH 77.00 H, Thyroxine (T4) 7.1, HIV 1&2 Antibody Rapid Nonreactive 07/14/24 12:15: Lactate 1.3 07/14/24 14:04: Urine Color Yellow, Urine Appearance Clear, Urine pH 5.5, Ur Specific [place] 1.020, Urine Protein Negative, Urine Glucose (UA) 3+, Urine Ketones Negative, Urine Blood Negative, Urine Nitrate Negative, Urine Bilirubin Negative, Urine Urobilinogen 0.2, Ur Leukocyte Esterase Negative, Urine RBC None, Urine WBC Occasional, Ur Squamous Epith Cells 3-5, Urine Bacteria Trace, Urine Yeast Occasional 07/14/24 14:44: Troponin I < 0.01 Orders (Tests/Meds): ED MEDICATIONS Discontinued Medications Generic Name Dose Route Start Last Admin Trade Name Freq PRN Reason Stop Dose Admin Acetaminophen 1,000 mg 07/14/24 11:46 07/14/24 12:13 Acetaminophen 1,000mg/100ml Vial IV 07/14/24 11:47 1,000 mg ONCE ONE Administration Sodium Chloride 1,000 mls @ 999 mls/hr 07/14/24 11:45 07/14/24 12:13 Sod Chlor 0.9% 1000ml Bag IV 07/14/24 12:45 999 mls/hr .Q1H1M ONE Administration Iopamidol 160 ml 07/14/24 14:12 07/14/24 14:14 Iopamidol-370 (76%);100ml Bottle IV 07/14/24 14:13 160 ml ONCE ONE Administration Ketorolac Tromethamine 15 mg 07/14/24 11:45 07/14/24 12:13 Ketorolac 30mg/Ml Vial IV 07/14/24 11:46 15 mg ONCE ONE Administration Metoclopramide HCl 5 mg 07/14/24 11:45 07/14/24 12:13 Metoclopramide Hcl 10mg/2ml Vial IVP 07/14/24 11:46 5 mg ONCE ONE Administration Sodium Chloride 10 ml 07/14/24 14:12 07/14/24 14:13 Sodium Chloride 0.9% 10ml Syr (Rad Only) IV 07/14/24 14:13 10 ml ONCE ONE Administration Sodium Chloride 50 ml 07/14/24 14:12 07/14/24 14:13 0.9 % Sodium Chloride 50 Ml Vial IV 07/14/24 14:13 50 ml ONCE ONE Administration ORDERS Category Date Time Status CT angio abdomen pelvis Stat Cat Scan 07/14/24 12:[address] angio head Stat Cat Scan 07/14/24 12:[address] angio neck Stat Cat Scan 07/14/24 12:[address] cervical spine wo con Stat Cat Scan 07/14/24 13:[address] head/brain wo con Stat Cat Scan 07/14/24 12:48 Completed CXR 2 view (NOT portable) [XR chest 2V] Stat Exams 07/14/24 13:20 Completed CBC w/Auto Diff [Complete Blood Count Auto Diff] Stat Lab 07/14/24 11:55 Completed CMP [Comprehensive Metabolic Panel] Stat Lab 07/14/24 11:55 Completed HIV (1&2) Antibody Rapid Stat Lab 07/14/24 11:55 Completed Hep C Ab with Reflex to RNA Stat Lab 07/14/24 11:55 Received Lactic Acid Stat Lab 07/14/24 12:15 Completed Lipase Stat Lab 07/14/24 11:55 Completed MAG [Magnesium] Stat Lab 07/14/24 11:55 Completed PHOS [Phosphorous] Stat Lab 07/14/24 11:55 Completed T4 (Thyroxine) Stat Lab 07/14/24 11:55 Completed TSH [Thyroid Stimulating Hormone] Stat Lab 07/14/24 11:55 Completed Trop I [Troponin I] Stat Lab 07/14/24 11:55 Completed Troponin I Q3H Lab 07/14/24 14:44 Completed Troponin I Q3H Lab 07/14/24 17:45 Ordered UA [Urinalysis and Microscopic] Stat Lab 07/14/24 14:04 Completed VBG [Venous Blood Gas] Stat RT 07/14/24 11:42 Completed Medical Decision Narrative: In summary, this patient is a 74-year-old female presenting to the Emergency Department for evaluation of low blood pressure readings at home in the setting of 6 weeks of lightheadedness, nausea, poor appetite, fatigue, frequent falls. Differential diagnoses considered include but are not limited to medication adverse reaction, dehydration, KALIA, urinary tract infection, CVA, gastritis, gastroparesis, peptic ulcer disease, intestinal ischemia. Ruling out the most morbid conditions drove assessment. It should be noted patient's history includes extensive cardiovascular history which may or may not be at goal therapy. This complicates all aspects of care by increasing patient's risk for morbidity. I reviewed patient's past medical records and noted previous cardiology evaluations including stenting in June. Also noted recent note from 07/11/2024 at which point they changed her medications given her chronic symptoms. Patient has had significantly elevated TSH on recent lab evaluation, unclear if this has been addressed by her primary care provider. On exam, the patient is lying in bed in no acute distress but she certainly looks like she does not feel well. Vitals are reassuring on cardiac telemetry. She has dry mucous membranes, some abdominal tenderness. She has no focal neurologic deficits. Workup included broad lab evaluation to evaluate for infectious, metabolic, cardiac causes of her symptoms. EKG was obtained and is reassuring without significant change from prior EKG. Patient was given a bolus of IV fluids as well as IV Reglan, Toradol, acetaminophen to assess for symptomatic improvement. On reassessment, the patient is lying in bed in no acute distress. She continues to be neurologically intact. She did have low blood pressure with orthostatic vital sign changes without significant change in heart rate. She is on metoprolol. Labs demonstrated worsening kidney function with creatinine up to 1.7. She also has very mild hyperkalemia without significant EKG change. She continues to have elevated TSH, though slightly improved from prior. TSH today 77. T4 7.1. Based on discussions with the family and the fact that they do not feel comfortable taking the patient home since her symptoms have continued to worsen despite outpatient evaluations and based on how the patient looked initially with hypotension, dry mucous membranes, and overall appearance that she feels very unwell, I feel that she would benefit from admission. I signed out to Dr. Christensen pending CT reads. Reassessment 5:20 PM I took over from Dr. Ericka Dueñas this is Dr. Christensen. CT scans were pending at the time of transition which I personally reviewed which showed no acute abnormalities from an emergency standpoint. Specifically no evidence of intra-abdominal pathology. I reviewed patient's labs and her chart and she has had mild worsening of her renal insufficiency decreased p.o. intake frequent falls and presentation with hypotension and orthostatic hypotension Dr. Dueñas had an extensive discussion with the patient and her family and they agreed upon admission for IV fluids and observation I spoke with Dr. Mclean who agreed with this plan and she was admitted for further evaluation on behalf of Dr. Garcia. Critical Care <Ericka Dueñas, DO - Last Filed: 07/14/24 15:18> Critical Care Time Critical Care Time: No
[2024-07-14 12:29] LABS: T4 (Thyroxine) 7.1 ug/dl (5.53-11.0)
--- NOTE | 2024-07-14 12:30 | ECG_ITS ---
APPROVED REPORT Exam: Resting ECG HR:73 bpm ECG Measurements Heart Rate 73 AXES [place] 176 P 13 QRSd 145 QRS -8 QT 486 T 98 QTc 512 Conclusion SINUS RHYTHM LEFT BUNDLE BRANCH BLOCK [120+ ms QRS DURATION, 80+ ms Q/S IN V1/V2, 85+ ms R IN I/aVL/V5/V6] ABNORMAL ECG UNCONFIRMED REPORT Electronically signed by : ADOLFO BOLAÑOS, 07/17/2024 04:35:28
[2024-07-14 12:35] LABS: Lactic Acid 1.3 mmol/L (0.7-2.1)
[2024-07-14 12:40] LABS: Troponin I < 0.01 ng/ml (0.00-0.034)
--- NOTE | 2024-07-14 12:48 | CT_ITS ---
FINAL REPORT TECHNIQUE: Thin-section axial CT with IV contrast supplemented with multi planar reconstruction under CT angiogram protocol was performed of the neck. This study was performed technique to keep radiation doses as low as reasonably achievable, (ALARA). NASCET criteria was utilized during interpretation. CLINICAL HISTORY: abd pain with eating, nausea dizziness COMPARISON: None FINDINGS: Aortic arch: Arch shows no significant narrowing. Great vessel origins are widely patent. Right carotid: No significant stenosis is seen at the cervical common or internal carotid artery. There are mild calcifications in the right carotid bulb and internal carotid artery, with a patent arterial stent. Left carotid: No significant stenosis is seen at the cervical common or internal carotid artery. There are mild calcifications in the left carotid bulb and internal carotid artery, with a patent arterial stent. Vertebrals: Left vertebral artery is dominant. No significant stenosis is present. IMPRESSION: No evidence of significant stenosis or major branch occlusion. Bilateral patent carotid artery stents. Reviewed, Interpreted and Dictated by Giovanny Rebolledo III, MD Transcribed by Nat Colbert Authenticated and [facility]
--- NOTE | 2024-07-14 12:48 | CT_ITS ---
FINAL REPORT TECHNIQUE: Pre-and postcontrast images of the abdomen and pelvis were performed by computed tomography. Extensive 3-D reconstruction images were performed. A CTA was performed. This study was performed with techniques to keep radiation doses as low as reasonably achievable (ALARA). Individualized dose reduction techniques using automated exposure control or adjustment of mA and/or kV according to the patient's size were employed. CLINICAL HISTORY: abd pain with eating, nausea COMPARISON: None FINDINGS: ABDOMEN AND PELVIS: The lung bases are clear. Precontrast images demonstrate no evidence of nephrolithiasis. No adrenal masses are identified. The liver, spleen and pancreas are unremarkable. There is mild gallbladder wall thickening with small stones or sludge present in the gallbladder. The appendix is normal in appearance. There is bladder wall thickening, likely inflammatory. CTA: The abdominal aorta is proper caliber without evidence of aneurysm or dissection. The iliac arteries are patent. The SMA, celiac axis, and SARABJIT are patent. There is no significant stenosis or calcification. The renal arteries are patent bilaterally. IMPRESSION: There is no evidence of significant stenosis in the intra-abdominal and pelvic vasculature. Mild gallbladder wall thickening, with small stones or sludge. Bladder wall thickening is present, likely inflammatory. Reviewed, Interpreted and Dictated by Giovanny Rebolledo III, MD Transcribed by Nat Colbert Authenticated and [facility]
--- NOTE | 2024-07-14 12:48 | CT_ITS ---
FINAL REPORT TECHNIQUE: Thin section axial CT with IV contrast supplemented with multiplanar reconstruction under CT angiogram protocol. 3-D reconstructions were performed. This study was performed with techniques to keep radiation doses as low as reasonably achievable (ALARA). Individualized dose reduction techniques using automated exposure control or adjustment of mA and/or kV according to the patient's size were employed. CLINICAL HISTORY: abd pain with eating, nausea COMPARISON: 10/02/2023 FINDINGS: The distal vertebral, basilar and distal internal carotid arteries have an unremarkable appearance. No aneurysm is seen. Major intracranial vessels are patent without significant stenosis. IMPRESSION: No significant intracranial vascular abnormality identified. Reviewed, Interpreted and Dictated by Giovanny Rebolledo III, MD Transcribed by Nat Colbert Authenticated and [facility]
--- NOTE | 2024-07-14 12:48 | CT_ITS ---
FINAL REPORT CLINICAL HISTORY: abd pain with eating, nausea dizziness COMPARISON: 10/02/2023 FINDINGS: Axial images of the head were obtained without contrast. Coronal and sagittal reformatted images were also obtained. This study was performed with techniques to keep radiation doses as low as reasonably achievable (ALARA). Individualized dose reduction techniques using automated exposure control or adjustment of mA and/or kV according to the patien''s size were employed. There is generalized age appropriate atrophy. There is no evidence of intracranial hemorrhage or mass. The ventricular size is within normal limits. There is no evidence of shift of the midline structures. There is partial opacification of the left mastoid air cells. IMPRESSION: No acute intracranial abnormality. Reviewed, Interpreted and Dictated by Giovanny Rebolledo III, MD Transcribed by Nat Colbert Authenticated and . [facility]
--- NOTE | 2024-07-14 13:18 | CT_ITS ---
FINAL REPORT CLINICAL HISTORY: falls >65 yo COMPARISON: None FINDINGS: Axial CT images of the cervical spine were obtained without contrast. Sagittal and coronal reformatted images were also obtained. This study was performed with techniques to keep radiation doses as low as reasonably achievable (ALARA). Individualized dose reduction techniques using automated exposure control or adjustment of mA and/or kV according to the patient's size were employed. There is no evidence of fracture or dislocation. The bony alignment is normal. There is mild and moderate degenerative change in the cervical spine, with multilevel osteophytes and neuroforaminal narrowing. The neural foraminal narrowing is greatest at the C5-6 and C6-7 levels. There is no significant of canal stenosis. Degenerative change is present in the left mandibular condyle. No paraspinous soft tissue abnormality is seen. Limited images of the upper thorax are unremarkable. IMPRESSION: No fracture or acute bony abnormality identified. Mild and moderate degenerative change with multilevel osteophytes and neural foraminal narrowing greatest at the C5-6 and C6-7 levels. Reviewed, Interpreted and Dictated by Giovanny Rebolledo III, MD Transcribed by Nat Colbert Authenticated and [facility]
--- NOTE | 2024-07-14 13:20 | XR_ITS ---
FINAL REPORT CLINICAL HISTORY: general weakness, dizzy, nausea COMPARISON: 10/12/2023 FINDINGS: Two views of the chest were obtained. The heart size and pulmonary vascularity are within normal limits. The mediastinum is normal. Mild left base opacities are present, atelectasis versus scar. There is no pneumothorax. The bony thorax is intact. IMPRESSION: Mild left base opacities, atelectasis versus scar. Reviewed, Interpreted and Dictated by Giovanny Rebolledo III, MD Transcribed by Nat Colbert Authenticated and [facility]
[2024-07-14 14:11] LABS: Microscopic, Urine URINE MICROSCOPIC (MICROSCOPIC)
[2024-07-14] MEDS: SODIUM CHLORIDE 0.9% 10ML SYR (RAD ONLY) 10 ML IV (14:13)
[2024-07-14] MEDS: 0.9 % SODIUM CHLORIDE 50 ML VIAL IV (14:13)
[2024-07-14] MEDS: IOPAMIDOL-370 (76%);100ML BOTTLE 160 ML IV (14:14)
[2024-07-14 14:33] LABS: Appearance,Urine CLEAR (Clear); Bilirubin,Urine Negative (Negative); Blood, Urine Negative (Negative); Color,Urine YELLOW (Yellow); Glucose,Urine (UA) 3+ (Negative); Ketones,Urine Negative (Negative); Leukocyte Esterase,Urine Negative (Negative); Nitrate,Urine Negative (Negative); PH,Urine 5.5 (5.0-8.5); Protein,Urine Negative (Negative); Urobilinogen,Urine 0.2 EU/dl (0.2)
[2024-07-14 15:21] LABS: HIV (1&2) Antibody Rapid NONREACTIVE (NONREACTIVE)
[2024-07-14 15:28] LABS: Troponin I < 0.01 ng/ml (0.00-0.034)
[2024-07-14 15:30] LABS: Bacteria,Urine Trace /lpf; WBC,Urine Occasional #/hpf (0-3)
[2024-07-14 15:31] LABS: Yeast,Urine Occasional /lpf
[2024-07-14] MEDS: 0.9 % SODIUM CHLORIDE 1000ML 1,000 ML 125 ML IV (17:26)
[2024-07-14 22:11] LABS: Hemoglobin A1C 8.2 % (4.0-6.0)
[2024-07-15] MEDS: humaLOG 100 UNITS/ML 10ML VIAL (SSI) SUBCUT (03:00)
[2024-07-15 03:12] LABS: POC Glucose,Bedside 200 (70-110)
[2024-07-15] MEDS: 0.9 % SODIUM CHLORIDE 1000ML 1,000 ML 125 ML IV ×3 (03:36→23:10)
[2024-07-15 04:00] VITALS: BP 156/75; PULSE 68; RESP 18; TEMP 36.5; O2SAT 100; BMI 29.2
--- NOTE | 2024-07-15 04:11 | PC.NURSE ---
74 yo fe pt admitted with KALIA and weakness. Pt is A/O X 4, pleasant and conversational. VS stable for pt, she is maintaining sats above 90% on RA. Pt has been able to ambulate to BR with standby assist and tolerating well. FSBS 200 at 3 am, covered with 2 units of insulin. pt has denied pain, discomfort, nausea or SOA throughout shift.
[2024-07-15 05:11] LABS: HCV Ab Non Reactive (Non Reactive)
[2024-07-15 08:00] VITALS: BP 152/69; PULSE 67; RESP 20; TEMP 36.6; O2SAT 99
--- NOTE | 2024-07-15 08:25 | CA_ITS ---
APPROVED REPORT EXAM: Limited 2D Echocardiogram Audiology Technician: Nila Morfin RVT Ht: 5 ft 2 in Wt: 165lbs BSA: 1.76 BP: 184/77 mmHg Indications: PERICARIDAL EFFUSION CHECK,SOA,VOMITING,CAD,A-FIB,HTN,DM,HLD 2D Dimensions IVSd 1.23 cm F: 0.6-1.0 LVEF (Visual) 74.40 % PWd 0.91 cm F: 0.6 - 1.0 EF AP4 51.70 % LVDd 5.66 cm F: 3.9 - 5.3 GL Strain -15.1 % LVDs 3.18 cm F: 2.2 - 3.5 M-Mode Dimensions LA Diam 4.24 cm (1.9-4.0) Tricuspid Valve TR P. Velocity 326.00 cm/s RAP Estimate 10.00 mmHg RVSP 52.40 mmHg Other Information Study Quality: Technically Difficult Conclusion This is a limited TTE to evaluate for pericardial effusion. Limited windows were obtained. Technically difficult study. The left ventricle is normal in size. There is increased LV wall thickness. There is low normal global LV systolic function. There is mild hypokinesis of the distal inferior septal, septal, and anteroseptal LV quezada. LVEF is 50%. In the available views, no pericardial effusion is visualized. Electronically signed by : Arpita Person MD 07/15/2024 12:50:18
[2024-07-15] MEDS: LISINOPRIL 10MG TABLET 10 MG PO (08:28)
[2024-07-15] MEDS: LEVOTHYROXINE 50MCG (0.05MG) TAB 50 MCG PO (08:28)
[2024-07-15] MEDS: SPIRONOLACTONE 25MG TABLET 50 MG PO (08:28)
[2024-07-15] MEDS: CLOPIDOGREL 75MG TAB 75 MG PO (08:28)
[2024-07-15] MEDS: METFORMIN 500MG TABLET 1000 MG PO ×2 (08:28→17:38)
[2024-07-15] MEDS: FERROUS SULFATE 325MG TABLET 325 MG PO (08:28)
[2024-07-15] MEDS: EMPAGLIFLOZIN 10MG TABLET 25 MG PO (08:28)
[2024-07-15] MEDS: INSULIN GLARGINE 100 UNITS/ML 10ML VIAL 40 UNIT SUBCUT ×2 (08:29→20:27)
--- NOTE | 2024-07-15 08:39 | P.HP_ITS ---
History of Present Illness *Admission Date: 07/14/24 *Reason for visit:: nausea, vomiting, dehydration *History of present illness: This patient is a 74-year-old female with a history of CAD status post stenting, most recently in June, carotid artery disease status post carotid endarte rectomy and stenting, peripheral arterial disease, hypertension, hyperlipidemia, hypothyroidism, prior TIA, and paroxysmal atrial fibrillation presenting to the emergency department for evaluation with concern for lightheadedness, fatigue, nausea, poor appetite, and low blood pressure at home. According to the patient, she has been having lightheadedness and nausea for the last 6 weeks and has not been feeling very well. As a result, she has had poor oral intake and has overall been very weak at home with multiple falls over the last few months. She notes that she has been seen outpatient for this as well as by cardiology and they thought maybe it could be related to her amiodarone, so they took her off this but she continues to feel bad. She notes to the also thought it could be related to her heart, so she underwent recent cath at the end of June and did have blockages for which she needed stents. She also notes she is awaiting outpatient renal artery ultrasound and carotid ultrasound. She notes she is having some generalized nonspecific abdominal pain and she has had alternating episodes of constipation and diarrhea. On Thursday 2 days ago she had some diarrhea, but she has not had a bowel movement since. She notes she is not passing very much gas. She notes that these symptoms have all been waxing waning over the last 6 weeks, but whenever they flareup at their worst she gets really severe light sensitivity. She denies any true visual changes, numbness, tingling, unilateral weakness, vertigo type symptoms, chest pain, shortness of breath, leg swelling, or other concerns. (above as per ER physician) She was started on IV fluids as well as IV Reglan, Toradol, and acetaminophen in the ER. She did have low blood pressure and her renal function had worsened. Her creatinine was up to 1.7. She continues to have an elevated TSH although it has improved. She was admitted for further evaluation and treatment and cardiology was consulted. Of note, the patient states she has had nausea and vomiting episodes for the past 6 weeks. She has had very little p.o. intake and also has difficulty keeping down liquids. [facility] Disclaimer: The information contained in this section may have been updated after the patient was seen, as this information can be updated by other users. Medical History HTN (hypertension) Frequent falls Carotid artery disease PAD (peripheral artery disease) Elevated TSH Paroxysmal A-fib Coronary artery disease CHI (closed head injury) Atrial fibrillation with rapid ventricular response History of TIA (transient ischemic attack) Closed fracture of left patella Vocal cord paralysis Cerebrovascular accident Hyperlipidemia Hypertensive cardiovascular disease Diabetes mellitus Surgical History History of cardiac cath Stented coronary artery History of colonoscopy History of carotid endarterectomy Family History Diabetes Coronary artery disease Hyperlipidemia Heart attack Hypertension Stroke Social History Smoking Status: Never smoker alcohol intake: never substance use type: denies use current occupational status: retired Travel in the last 8 weeks: None household members: family housing: house current occupational exposures/hazards: No caffeine: Yes Other Medical History Have you received the Flu Vaccine for this season: No Have you received the Pneumonia Vaccine: No Review of Systems Constitutional Constitutional: Reports fatigue, Denies fever(s), Reports frequent falls, Denies headache(s), Reports poor appetite, Reports lethargy, Reports malaise and Reports weakness Eyes Eyes: Denies blurry vision and Denies diplopia ENT Ears, Nose, Mouth, and Throat: Reports dizziness, Denies headache(s), Denies nasal congestion and Denies sore throat *Cardiovascular Cardiovascular: Denies chest pain, Reports dyspnea and Denies leg edema *Respiratory Respiratory: Denies cough and Reports dyspnea *Gastrointestinal Gastrointestinal: Reports abdominal pain, Denies loose stools, Reports nausea and Reports vomiting *Genitourinary Genitourinary: Denies difficulty voiding and Denies dysuria *Musculoskeletal Musculoskeletal: Denies joint swelling and Denies myalgias *Neurologic Neurologic: Reports dizziness, Reports frequent falls, Denies headache(s) and Reports weakness Endocrine Endocrine: Reports fatigue Meds Home Medications and Allergies Home Medications ?Medication ?Instructions ?Recorded ?Confirmed ?Type metformin 1,000 mg tablet 1,000 mg PO BID 01/02/21 07/14/24 History atorvastatin 80 mg tablet 80 mg PO DAILY 02/03/22 07/14/24 History blood sugar diagnostic (Accu-Chek #10 ea 02/03/22 07/14/24 History Amanda Plus test strips) clopidogrel 75 mg tablet 75 mg PO DAILY 02/03/22 07/14/24 History lancets (Accu-Chek Softclix #100 ea 02/03/22 07/14/24 History Lancets) lisinopril 10 mg tablet 10 mg PO DAILY 02/03/22 07/14/24 History pen needle, diabetic 31 gauge x #1,200 ea 02/03/22 07/14/24 History 12/23 (Droplet Pen Needle) vitamin B12 500 mcg-folic acid 400 1 tab PO DAILY Supplement 06/29/23 07/14/24 History mcg tablet insulin glargine 100 unit/mL (3 40 unit SQ HS 10/01/23 07/14/24 History mL) subcutaneous pen (Lantus Solostar U-100 Insulin) famotidine 20 mg tablet 20 mg PO BID #0 tabs 10/09/23 07/14/24 Rx ferrous sulfate 325 mg (65 mg 325 mg PO BID #60 tabs 10/09/23 07/14/24 Rx iron) tablet insulin lispro 100 unit/mL 0 unit (0 mL) SQ ACHS #0 mL 10/09/23 07/14/24 Rx subcutaneous solution (Humalog U-100 Insulin) spironolactone 25 mg tablet 25 mg PO DAILY #0 tabs 10/09/23 07/14/24 Rx ondansetron HCl 4 mg tablet 4 mg PO DAILY 12/24/23 07/14/24 History cholecalciferol (vitamin D3) 10 10 mcg PO DAILY 03/31/24 07/14/24 History mcg (400 unit) capsule levothyroxine 50 mcg tablet 50 mcg PO DAILY 03/31/24 07/14/24 History metoprolol tartrate 25 mg tablet 25 mg PO BID #60 tabs 06/22/24 07/14/24 Rx cefuroxime axetil 500 mg tablet 500 mg PO ONCE 06/27/24 07/14/24 History empagliflozin 25 mg tablet 25 mg PO DAILY 06/27/24 07/14/24 History (Jardiance) promethazine 12.5 mg tablet 12.5 mg PO ONCE 06/27/24 07/14/24 History rivaroxaban 15 mg tablet (Xarelto) 15 mg PO DAILY #30 tabs 07/11/24 07/14/24 Rx New Prescriptions to Start Prescriptions: Allergies Allergy/AdvReac Type Severity Reaction Status Date / Time No Known Allergies Allergy Verified 07/14/24 11:35 Exam Data for Last 24 hours Vital signs and Labs for Last 24 Hours: Temp Pulse Resp BP Pulse Ox O2 Del Method 97.9 F 67 20 152/69 H 99 Room Air 07/15/24 08:00 07/15/24 08:00 07/15/24 08:00 07/15/24 08:00 07/15/24 08:00 07/15/24 08:00 Laboratory Results - last 24 hr 07/14/24 11:15: Hemoglobin A1c 8.2 H, TSH 79.30 H 07/14/24 11:42: VBG pH 7.34, VBG pCO2 42.3, VBG pO2 48.0 H, VBG HCO3 22.3 L, VBG Total CO2 23.6, VBG O2 Saturation 81.8 H, VBG Base Excess -3.5 L, VBG Lactic Acid 1.8 07/14/24 11:55: WBC 8.2, RBC 3.98 L, Hgb 13.0, Hct 39.9, MCV 100.1 H, MCH 32.7 H , MCHC 32.7, RDW 14.2, Plt Count 303, MPV 7.9, Neut % (Auto) 66.0, Lymph % (Auto) 20.5, [place] % (Auto) 4.7, Eos % (Auto) 7.8, Baso % (Auto) 1.0, Neut # (Auto) 5.4, Lymph # (Auto) 1.7, [place] # (Auto) 0.4, Eos # (Auto) 0.6 H, Baso # (Auto) 0.1, Sodium 140, Potassium 5.3 H, Chloride 107, Carbon Dioxide 24, Anion Gap 14.3, BUN 43 H, Creatinine 1.70 H, Estimated Creat Clear 34, Estimated GFR 29 L, Est GFR ( Amer) 35 L, Glucose 170 H, Calcium 9.6, Phosphorus 4.0, Magnesium 1.8, Total Bilirubin 0.7, AST 30, ALT 21, Alkaline Phosphatase 123, Troponin I < 0.01, Total Protein 8.4 H D, Albumin 4.6, Globulin 3.8 H, Albumin/Globulin Ratio 1.2, Lipase 38, TSH 77.00 H, Thyroxine (T4) 7.1, Hepatitis C Antibody Non reactive, HIV 1&2 Antibody Rapid Nonreactive 07/14/24 12:15: Lactate 1.3 07/14/24 14:04: Urine Color Yellow, Urine Appearance Clear, Urine pH 5.5, Ur Specific [place] 1.020, Urine Protein Negative, Urine Glucose (UA) 3+, Urine Ketones Negative, Urine Blood Negative, Urine Nitrate Negative, Urine Bilirubin Negative, Urine Urobilinogen 0.2, Ur Leukocyte Esterase Negative, Urine RBC None, Urine WBC Occasional, Ur Squamous Epith Cells 3-5, Urine Bacteria Trace, Urine Yeast Occasional 07/14/24 14:44: Troponin I < 0.01 07/15/24 02:58: POC Glucose 200 H I & O for Last 24 hours: Intake & Output 07/12/24 07/13/24 07/14/24 07/15/24 11:59 11:59 11:59 11:59 Intake Total 1625 / 1625 Output Total 0 / 0 Balance 1625 / 1625 Weight 165 lb 165 lb Constitutional Constitutional: no acute distress *Routine HEENT Exam Head: Present normocephalic and atraumatic Eye: Present EOMI and PERRL ENT: Present mucous membranes dry *Routine Neck Exam Neck: Present supple and full ROM *Routine Respiratory Exam Respiratory: Present CTA bilaterally *Routine Cardiovascular Exam Cardiovascular: Present RRR *Routine Abdominal Exam Abdominal: Present soft, normoactive bowel sounds and tenderness (diffuse) *Routine Rectal Exam Rectal:: deferred *Routine Genitalia Exam Genitalia:: deferred *Routine Extremities Exam Extremities: Absent cyanosis, clubbing or edema *Routine Skin Exam Skin: Present intact; Absent erythema *Routine Neurological Exam Neurological: Present alert and oriented X3 H&P: Result Impressions Abd/Pelvis CTA There is no evidence of significant stenosis in the intra-abdominal and pelvic vasculature. Mild gallbladder wall thickening, with small stones or sludge. Bladder wall thickening is present, likely inflammatory. Head CT - nothing acute Head CTA - nothing acute Neck CTA - No evidence of significant stenosis or major branch occlusion. Bilateral patent carotid artery stents. Cervical Spine CT - No fracture or acute bony abnormality identified. Mild and moderate degenerative change with multilevel osteophytes and neural foraminal narrowing greatest at the C5-6 and C6-7 levels. CXR - Mild left base opacities, atelectasis versus scar. Assessment and Plan *Assessment and plan (1) KALIA (acute kidney injury): Status: Acute Category: Medical Code(s): N17.9 - Acute kidney failure, unspecified (2) Nausea: Status: Acute Category: Medical Code(s): R11.0 - Nausea (3) Abdominal pain: Status: Acute Category: Medical Code(s): R10.9 - Unspecified abdominal pain (4) Dizziness: Status: Acute Category: Medical Code(s): R42 - Dizziness and giddiness (5) Frequent falls: Status: Acute Category: Medical Code(s): R29.6 - Repeated falls (6) Hypothyroidism: Status: Acute Category: Medical Code(s): E03.9 - Hypothyroidism, unspecified (7) Carotid artery disease: Status: Acute Category: Medical Code(s): I77.9 - Disorder of arteries and arterioles, unspecified (8) PAD (peripheral artery disease): Status: Acute Category: Medical Code(s): I73.9 - Peripheral vascular disease, unspecified (9) Elevated TSH: Status: Acute Category: Medical Code(s): R79.89 - Other specified abnormal findings of blood chemistry (10) Paroxysmal A-fib: Status: Acute Category: Medical Code(s): I48.0 - Paroxysmal atrial fibrillation (11) Coronary artery disease: Status: Acute Category: Medical Code(s): I25.10 - Atherosclerotic heart disease of [place] coronary artery without angina pectoris (12) Status post coronary artery stent placement: Status: Acute Category: Surgical Code(s): Z95.5 - Presence of coronary angioplasty implant and graft (13) Hyperlipidemia: Status: Acute Qualifiers: Hyperlipidemia type: mixed hyperlipidemia Qualified Code(s): E78.2 - Mixed hyperlipidemia Category: Medical Code(s): E78.5 - Hyperlipidemia, unspecified (14) Diabetes mellitus: Status: Chronic Qualifiers: Diabetes mellitus complication status: with other specified complication Diabetes mellitus retirement insulin use: unspecified retirement insulin use status Diabetes mellitus type: type 2 Qualified Code(s): E11.69 - Type 2 diabetes mellitus with other specified complication Category: Medical Code(s): E11.9 - Type 2 diabetes mellitus without complications Plan Patient is receiving IVF's. She does feel better this am. Cardiology to see the patient. Dr. Garcia entry - Saw patient, agree with above note. She has abd pain, will check a RUQ U/S.
--- NOTE | 2024-07-15 08:59 | US_ITS ---
FINAL REPORT CLINICAL HISTORY: Abd pain, N/V COMPARISON: None FINDINGS: Sonographic images of the right upper quadrant were obtained. The pancreas is partially obscured. There is mild fatty infiltration of the liver. There is mild gallbladder wall thickening measuring approximately 5 mm. No gallstones are identified. There is no evidence of biliary ductal dilatation. The common duct measures 3 mm. There is a probable small cyst in the lower pole of the right kidney measuring 11 mm. IMPRESSION: Probable small cyst lower pole right kidney. Fatty infiltration of the liver. Reviewed, Interpreted and Dictated by Giovanny Rebolledo III, MD Transcribed by Kathryn Fay Authenticated and [facility]
[2024-07-15] MEDS: PROMETHAZINE HCL 12.5MG TABLET 12.5 MG PO (09:26)
--- NOTE | 2024-07-15 10:15 | EXP.CARD.CON ---
History of Present Illness History of Present Illness Consult date: 07/15/24 Requesting physician: Cosme Garcia Chief complaint: fatigue, N/Dry heaving/abd pain Additional Medical History:: 1. Fall with left patella fracture and closed head injury A. CTA of the head-no acute injury on 09/25/2023 and 10/02/2023 2. New onset atrial fibrillation, 10/05/2023 A. Amiodarone use from 09/2023 to 06/2024 B. Eliquis 3. Hypertension A. Echo, 12/2020, biatrial enlargement, normal LV size, mild concentric LVH, EF 55% with no regional WMA, grade 1 DD. Mild RV enlargement with normal contractility. Moderate MR and mild TR with RVSP 42 mmHg B. Limited echo, 09/2023, trivial, anterior pericardial effusion with largest pocket measuring 0.2 cm with no evidence of tamponade 4. History of carotid artery stenosis A. Plavix therapy 5. Diabetes mellitus, poorly controlled A. Hemoglobin A1c, greater than 10 6. Hypertension 7. Hyperlipidemia A. LDL 66, 11/2023, on statin 8. CAD A. TORI to ostial LAD and prox dominant Circumflex, 10/06/2023 B. TORI to proximal LAD and Circumflex, 07/04/2024 9. Aortic stenosis, moderate A. Echo, 10/2023 10. Hypothyroidism A. On replacement History of present illness: This patient is a 74-year-old female with a history of CAD status post stenting, most recently in June, carotid artery disease status post carotid endarterectomy and stenting, peripheral arterial disease, hypertension, hyperlipidemia, hypothyroidism, prior TIA, and paroxysmal atrial fibrillation presenting to the emergency department for evaluation with concern for lightheadedness, fatigue, nausea, poor appetite, and low blood pressure at home. According to the patient, she has been having lightheadedness and nausea for the last 6 weeks and has not been feeling very well. As a result, she has had poor oral intake and has overall been very weak at home with multiple falls over the last few months. She notes that she has been seen outpatient for this as well as by cardiology and they thought maybe it could be related to her amiodarone, so they took her off this but she continues to feel bad. She notes to the also thought it could be related to her heart, so she underwent recent cath at the end of June and did have blockages for which she needed stents. She also notes she is awaiting outpatient renal artery ultrasound and carotid ultrasound. She notes she is having some generalized nonspecific abdominal pain and she has had alternating episodes of constipation and diarrhea. On Thursday 2 days ago she had some diarrhea, but she has not had a bowel movement since. She notes she is not passing very much gas. She notes that these symptoms have all been waxing waning over the last 6 weeks, but whenever they flareup at their worst she gets really severe light sensitivity. She denies any true visual changes, numbness, tingling, unilateral weakness, vertigo type symptoms, chest pain, shortness of breath, leg swelling, or other concerns. (above as per ER physician) She was started on IV fluids as well as IV Reglan, Toradol, and acetaminophen in the ER. She did have low blood pressure and her renal function had worsened. Her creatinine was up to 1.7. She continues to have an elevated TSH although it has improved. She was admitted for further evaluation and treatment and cardiology was consulted. Of note, the patient states she has had nausea and vomiting episodes for the past 6 weeks. She has had very little p.o. intake and also has difficulty keeping down liquids. The above per MUNA Muro for Dr. Garcia The above events and symptoms confirmed with the patient. Patient was concerned about pericardial effusion possibly getting worse. Echocardiogram being performed during my exam shows small amount of fluid without evidence of tamponade. Patient denies any chest pain, pressure or tightness. She does relate some generalized abdominal discomfort. Most of her symptoms sound GI related. She does relate having a colonoscopy last year that was reportedly okay. No records in our system. She did have a barium enema in July of last year that showed diverticulosis of the distal colon. Patient also concerned about outpatient renal ultrasound and carotid ultrasound scheduled later this month as to whether any of those problems could be the cause of her current symptoms. I explained to her that she had a neck CTA and abdominal CTA yesterday that showed no significant obstructive lesions of the carotids or renal arteries. Troponins are normal this admission. EKG is sinus rhythm with left bundle branch block. [facility] Disclaimer: The information contained in this section may have been updated after the patient was seen, as this information can be updated by other users. Medical History HTN (hypertension) Frequent falls Carotid artery disease PAD (peripheral artery disease) Elevated TSH Paroxysmal A-fib Coronary artery disease CHI (closed head injury) Atrial fibrillation with rapid ventricular response History of TIA (transient ischemic attack) Closed fracture of left patella Vocal cord paralysis Cerebrovascular accident Hyperlipidemia Hypertensive cardiovascular disease Diabetes mellitus Surgical History History of cardiac cath Stented coronary artery History of colonoscopy History of carotid endarterectomy Family History Diabetes Coronary artery disease Hyperlipidemia Heart attack Hypertension Stroke Social History Smoking Status: Never smoker alcohol intake: never substance use type: denies use current occupational status: retired Travel in the last 8 weeks: None household members: family housing: house current occupational exposures/hazards: No caffeine: Yes Review of Systems Review of Systems Review of systems:: pertinent systems reviewed and negative unless documented below Constitutional Constitutional: Reports frequent falls, Denies headache(s) and Reports weakness ENT Ears, Nose, Mouth, and Throat: Reports dizziness and Denies headache(s) *Cardiovascular Cardiovascular: Denies chest pain and Denies dyspnea *Respiratory Respiratory: Denies cough and Denies dyspnea *Neurologic Neurologic: Reports dizziness, Reports frequent falls, Denies headache(s) and Reports weakness Exam Data for Last 24 hours Vital signs and Labs for Last 24 Hours: Temp Pulse Resp BP Pulse Ox O2 Del Method 97.9 F 67 20 152/69 H 99 Room Air 07/15/24 08:00 07/15/24 08:00 07/15/24 08:00 07/15/24 08:00 07/15/24 08:00 07/15/24 09:00 Laboratory Results - last 24 hr 07/14/24 11:15: Hemoglobin A1c 8.2 H, TSH 79.30 H 07/14/24 11:42: VBG pH 7.34, VBG pCO2 42.3, VBG pO2 48.0 H, VBG HCO3 22.3 L, VBG Total CO2 23.6, VBG O2 Saturation 81.8 H, VBG Base Excess -3.5 L, VBG Lactic Acid 1.8 07/14/24 11:55: WBC 8.2, RBC 3.98 L, Hgb 13.0, Hct 39.9, MCV 100.1 H, MCH 32.7 H, MCHC 32.7, RDW 14.2, Plt Count 303, MPV 7.9, Neut % (Auto) 66.0, Lymph % (Auto) 20.5, [place] % (Auto) 4.7, Eos % (Auto) 7.8, Baso % (Auto) 1.0, Neut # (Auto) 5.4, Lymph # (Auto) 1.7, [place] # (Auto) 0.4, Eos # (Auto) 0.6 H, Baso # (Auto) 0.1, Sodium 140, Potassium 5.3 H, Chloride 107, Carbon Dioxide 24, Anion Gap 14.3, BUN 43 H, Creatinine 1.70 H, Estimated Creat Clear 34, Estimated GFR 29 L, Est GFR ( Amer) 35 L, Glucose 170 H, Calcium 9.6, Phosphorus 4.0, Magnesium 1.8, Total Bilirubin 0.7, AST 30, ALT 21, Alkaline Phosphatase 123, Troponin I < 0.01, Total Protein 8.4 H D, Albumin 4.6, Globulin 3.8 H, Albumin/Globulin Ratio 1.2, Lipase 38, TSH 77.00 H, Thyroxine (T4) 7.1, Hepatitis C Antibody Non reactive, HIV 1&2 Antibody Rapid Nonreactive 07/14/24 12:15: Lactate 1.3 07/14/24 14:04: Urine Color Yellow, Urine Appearance Clear, Urine pH 5.5, Ur Specific [place] 1.020, Urine Protein Negative, Urine Glucose (UA) 3+, Urine Ketones Negative, Urine Blood Negative, Urine Nitrate Negative, Urine Bilirubin Negative, Urine Urobilinogen 0.2, Ur Leukocyte Esterase Negative, Urine RBC None, Urine WBC Occasional, Ur Squamous Epith Cells 3-5, Urine Bacteria Trace, Urine Yeast Occasional 07/14/24 14:44: Troponin I < 0.01 07/15/24 02:58: POC Glucose 200 H I & O for Last 24 hours: Intake & Output 07/12/24 07/13/24 07/14/24 07/15/24 11:59 11:59 11:59 11:59 Intake Total 3430 / 3430 Output Total 0 / 0 Balance 343 / 3430 Weight 165 lb 165 lb Constitutional Constitutional: mild distress *Routine Respiratory Exam Respiratory: Present CTA bilaterally *Routine Cardiovascular Exam Cardiovascular: Present RRR and murmur; Absent gallop or rubs *Routine Abdominal Exam Abdominal: Present tenderness *Routine Extremities Exam Extremities: Absent edema Meds Home Medications and Allergies Home Medications ?Medication ?Instructions ?Recorded ?Confirmed ?Type metformin 1,000 mg tablet 1,000 mg PO BID 01/02/21 07/11/24 History atorvastatin 80 mg tablet 80 mg PO DAILY 02/03/22 07/11/24 History blood sugar diagnostic (Accu-Chek #10 ea 02/03/22 07/14/24 History Amanda Plus test strips) clopidogrel 75 mg tablet 75 mg PO DAILY 02/03/22 07/14/24 History lancets (Accu-Chek Softclix #100 ea 02/03/22 07/14/24 History Lancets) lisinopril 10 mg tablet 10 mg PO DAILY 02/03/22 07/14/24 History pen needle, diabetic 31 gauge x #1,200 ea 02/03/22 07/14/24 History 5/16 (Droplet Pen Needle) vitamin B12 500 mcg-folic acid 400 1 tab PO DAILY Supplement 06/29/23 07/14/24 History mcg tablet insulin glargine 100 unit/mL (3 40 unit SQ HS 10/01/23 07/11/24 History mL) subcutaneous pen (Lantus Solostar U-100 Insulin) famotidine 20 mg tablet 20 mg PO BID #0 tabs 10/09/23 07/14/24 Rx ferrous sulfate 325 mg (65 mg 325 mg PO BID #60 tabs 10/09/23 07/14/24 Rx iron) tablet insulin lispro 100 unit/mL 0 unit (0 mL) SQ ACHS #0 mL 10/09/23 07/11/24 Rx subcutaneous solution (Humalog U-100 Insulin) cholecalciferol (vitamin D3) 10 10 mcg PO DAILY 03/31/24 07/14/24 History mcg (400 unit) capsule levothyroxine 50 mcg tablet 50 mcg PO DAILY 03/31/24 07/14/24 History metoprolol tartrate 25 mg tablet 25 mg PO BID #60 tabs 06/22/24 07/11/24 Rx empagliflozin 25 mg tablet 25 mg PO DAILY 06/27/24 07/14/24 History (Jardiance) rivaroxaban 15 mg tablet (Xarelto) 15 mg PO DAILY #30 tabs 07/11/24 07/11/24 Rx apixaban 5 mg tablet (Eliquis) 5 mg PO BID 07/15/24 History oxybutynin chloride 5 mg 5 mg PO DAILY 07/15/24 07/15/24 History tablet,extended release 24 hr spironolactone 25 mg tablet 25 mg PO BID 07/15/24 07/15/24 History New Prescriptions to Start Prescriptions: Allergies Allergy/AdvReac Type Severity Reaction Status Date / Time No Known Allergies Allergy Verified 07/14/24 11:35 Assessment and Plan *Assessment and plan (1) Abdominal pain: Status: Acute Qualifiers: Abdominal location: generalized Qualified Code(s): R10.84 - Generalized abdominal pain Category: Medical Code(s): R10.9 - Unspecified abdominal pain (2) Nausea: Status: Acute Category: Medical Code(s): R11.0 - Nausea (3) Frequent falls: Status: Acute Category: Medical Code(s): R29.6 - Repeated falls (4) Elevated TSH: Status: Acute Category: Medical Code(s): R79.89 - Other specified abnormal findings of blood chemistry (5) KALIA (acute kidney injury): Status: Acute Category: Medical Code(s): N17.9 - Acute kidney failure, unspecified (6) Coronary artery disease: Status: Acute Qualifiers: Coronary Disease-Associated Artery/Lesion type: [place] artery [place] vs. transplanted heart: [place] heart Associated angina: without angina Qualified Code(s): I25.10 - Atherosclerotic heart disease of [place] coronary artery without angina pectoris Category: Medical Code(s): I25.10 - Atherosclerotic heart disease of [place] coronary artery without angina pectoris (7) Paroxysmal A-fib: Status: Acute Category: Medical Code(s): I48.0 - Paroxysmal atrial fibrillation (8) Anemia: Status: Acute Qualifiers: Anemia type: unspecified type Qualified Code(s): D64.9 - Anemia, unspecified Category: Medical Code(s): D64.9 - Anemia, unspecified (9) Hyperlipidemia: Status: Acute Qualifiers: Hyperlipidemia type: mixed hyperlipidemia Qualified Code(s): E78.2 - Mixed hyperlipidemia Category: Medical Code(s): E78.5 - Hyperlipidemia, unspecified (10) Diabetes mellitus: Status: Chronic Qualifiers: Diabetes mellitus complication status: with other specified complication Diabetes mellitus fpc insulin use: unspecified [employer] insulin use status Diabetes mellitus type: type 2 Qualified Code(s): E11.69 - Type 2 diabetes mellitus with other specified complication Category: Medical Code(s): E11.9 - Type 2 diabetes mellitus without complications Plan 1. Abdominal pain with nausea -per Dr. Garcia -LFTs normal 2. Pericardial effusion, small -limited echo today, prelim shows no significant change 3. KALIA -likely related to nausea, decreased intake 4. CAD -recent stenting of LAD and Circ, 07/04/2024 -continue plavix (aspirin stopped 07/11/2024) 5. PAF -currently maintaining sinus rhythm -Continue anticoagulation with Xarelto 15 mg daily -Amiodarone recently discontinued 6. Hyperlipidemia, -on statin therapy -Check lipids on blood work from today 7. Diabetes mellitus -per PCP -Hemoglobin A1c 8.2 on 07/14/2024 8. Elevated TSH/hypothyroidism -Replacement per PCP -TSH 77 on 07/14/2024 9. Hypertension -Continue metoprolol and lisinopril -renal arteries without significant obstruction per Abd CTA this admission 10. Carotid artery stenosis -neck CTA this admission without significant stenosis Stable from cardiology standpoint for discharge. Resume home meds: Plavix 75 mg daily Jardiance 25 mg daily Atorvastatin 80 mg daily Xarelto 15 mg daily (recently switched from Eliquis due to cost) Lisinopril 10 mg daily Metoprolol tartrate 25 mg twice daily Spironolactone 25 mg daily Follow-up in our office and 2 to 3 weeks.
[2024-07-15 10:47] LABS: POC Glucose,Bedside 104 (70-110)
[2024-07-15 11:45] LABS: Chol/HDL Ratio 3.2 (1-3.5); Cholesterol 172 mg/dl (140-200); HDL Cholesterol 54 mg/dl (40-60); Triglycerides 109 mg/dl (30-150); VLDL Cholesterol 22 mg/dL (0-40)
--- NOTE | 2024-07-15 11:45 | PC.NURSE ---
patient is downstairs at this time
[2024-07-15 11:57] LABS: Direct LDL Cholesterol 100.25 mg/dL (100-129)
--- NOTE | 2024-07-15 12:15 | HMH.PHAINT1 ---
Pharmacy Intervention Comments: Home medication list verified using list from outpatient pharmacy, list from physician office and pt interview
[2024-07-15 15:56] VITALS: BP 124/60; PULSE 76; RESP 18; TEMP 36.7; O2SAT 98
--- NOTE | 2024-07-15 15:56 | PC.NURSE ---
pt has remained on room air and alert and oriented x4 this shift. pt stated that taking pills makes her feel nauseated and that she takes phenergan at home w/ medicines to decrease n/v. phenergan is currently ordered Q6 PRN. pt c/o n/v previously in shift. pt was medicated per order ( see OCT). pt had RUQ US done previously in shift. no gallbladder sludge or gallstones were noted. MD was notified and pt diet was advanced to full liquids. pt has had no other complaints this shift. pt has been ambulating to bathroom w/ x1 assistance to and from bathroom. NS currently running at 125 still. no new orders at this time. call light within reach.
[2024-07-15 16:34] LABS: POC Glucose,Bedside 127 (70-110)
[2024-07-15 20:00] VITALS: BP 134/57; PULSE 71; RESP 16; TEMP 37; O2SAT 98
[2024-07-15 20:27] LABS: POC Glucose,Bedside 117 (70-110)
[2024-07-15] MEDS: APIXABAN 5MG TABLET 5 MG PO (20:27)
--- NOTE | 2024-07-15 22:22 | PC.NURSE ---
Pt called out to report that she felt like her BS had dropped. She reports shaky and sweaty feeling. FSBS at 41. pt able to take in OJ and some broth with f/u BS at 71. pt reports symptoms subsided.
[2024-07-15 22:27] LABS: POC Glucose,Bedside 72 (70-110)
[2024-07-16 04:00] VITALS: BP 136/54; PULSE 76; RESP 17; TEMP 36.6; O2SAT 97; BMI 29.7
--- NOTE | 2024-07-16 04:20 | PC.NURSE ---
74 yo fe pt admitted with weakness and KALIA. Pt has remained A/O X 3. She has been able to ambulate to BR with standby assist. She has had 2 episodes of loose stool through the night. She has also had 2 occasions where her BS dropped, the first time 41, and the second time down to 57, Both times BS has increased with OJ and then has eaten jello. She has not had emesis but did complain of queasy stomach when BS was low. She continues to ask for real food and not interested in taking full liquids. VS have been stable for pt. She has maintained 02 sats above 90 on RA
[2024-07-16 05:26] LABS: POC Glucose,Bedside 60 (70-110)
[2024-07-16 05:26] LABS: POC Glucose,Bedside 57 (70-110)
[2024-07-16 05:29] LABS: POC Glucose,Bedside 90 (70-110)
[2024-07-16] MEDS: LEVOTHYROXINE 50MCG (0.05MG) TAB 50 MCG PO (06:08)
[2024-07-16 07:20] LABS: Basophils # 0.1 K/mm3 (0-0.2); Basophils % 0.7 % (0.1-2.0); Eosinophils # 1.2 K/mm3 (0.0-0.4); Eosinophils % 15.1 % (0.1-12.0); Hematocrit 34.3 % (37.0-47.0); Hemoglobin 11.6 g/dL (12.2-16.2); Lymphocytes # 1.8 K/mm3 (0.7-4.5); Lymphocytes % 23.8 % (10-50); Mean Corpuscular HGB Conc 33.8 g/dL (31.8-35.4); Mean Corpuscular Hemoglobin 32.5 pg (27.0-31.2); Mean Corpuscular Volume 96.3 fl (81-99); Mean Platelet Volume 7.9 fl (7.4-10.4); Monocytes # 0.3 K/mm3 (0.1-1.0); Monocytes % 4.5 % (1.7-9.3); Neutrophils # 4.3 K/mm3 (1.8-7.8); Neutrophils % 55.9 % (37.0-80.0); Platelet Count 256 K/mm3 (142-424); Red Blood Count 3.56 M/mm3 (4.20-5.40); Red Cell Distribution Width 14.4 % (11.5-17.5); White Blood Count 7.7 K/mm3 (4.8-10.8)
[2024-07-16 07:23] LABS: Chloride 114 mmol/L (98-107)
[2024-07-16 07:24] LABS: Potassium 4.3 mmoL/L (3.5-5.1); Sodium 140 mmol/L (136-145)
[2024-07-16 07:26] LABS: Blood Urea Nitrogen 18 mg/dl (7-17); Creatinine Clearance Estimated 49 mL/min (50-200); Estimated Glomerular Filt Rate 44 ml/min (>60); GFR (African American) 53 ML/MIN (>60)
[2024-07-16 07:27] LABS: Anion Gap 11.3 mEq/L (5-15); Calcium 8.2 mg/dl (8.4-10.2); Carbon Dioxide 19 mmol/L (22.0-30.0); Glucose 95 mg/dl (74-100)
[2024-07-16 07:50] VITALS: BP 137/73; PULSE 92; RESP 18; TEMP 37; O2SAT 98
[2024-07-16] MEDS: CLOPIDOGREL 75MG TAB 75 MG PO (08:30)
[2024-07-16] MEDS: APIXABAN 5MG TABLET 5 MG PO (08:30)
[2024-07-16] MEDS: LISINOPRIL 10MG TABLET 10 MG PO (08:30)
[2024-07-16] MEDS: SPIRONOLACTONE 25MG TABLET 50 MG PO (08:31)
[2024-07-16] MEDS: EMPAGLIFLOZIN 10MG TABLET 25 MG PO (08:31)
[2024-07-16] MEDS: FERROUS SULFATE 325MG TABLET 325 MG PO (08:31)
--- NOTE | 2024-07-16 08:56 | P.PN_ITS ---
Subjective *Date: 07/16/24 *Time: 08:56 Interval history: Patient feels better this morning and is hungry. She requests a regular diet and is anxious to go home. Medical Exam Vital signs and Labs for Last 24 Hours: Vital Signs Temp Pulse Resp BP Pulse Ox O2 Del Method 07/16/24 07:50 98.6 F 92 H 18 137/73 98 Room Air 07/16/24 06:48 Room Air 07/16/24 05:00 Room Air 07/16/24 04:00 97.8 F 76 17 136/54 L 97 Room Air 07/16/24 03:00 Room Air 07/16/24 00:58 Room Air 07/15/24 23:00 Room Air 07/15/24 21:00 Room Air 07/15/24 20:00 98 Room Air 07/15/24 20:00 98.6 F 71 16 134/57 L 98 Room Air 07/15/24 18:37 Room Air 07/15/24 16:55 Room Air 07/15/24 15:56 98.0 F 76 18 124/60 98 07/15/24 14:40 Room Air 07/15/24 13:00 Room Air 07/15/24 11:00 Room Air 07/15/24 09:00 Room Air Intake and Output 07/15/24 07/16/24 07/16/24 23:59 07:59 15:59 Intake Total 975 / 4030 625 / 625 Output Total 0 / 0 Balance 975 / 4030 625 / 625 Intake: Intake, Oral Amount 660 / 1140 Intake, Total IV Amount 315 / 2890 625 / 625 0.9 % Sodium Chloride 1000ML 1, 315 / 2265 625 / 625 000 ml @ 125 mls/hr IV .Q8H [facility] Rx#:[id number] Output: Output, Urine Amount 0 / 0 Other: Number of Unmeasured Voids 2 Number of Bowel Movements 2 Weight 168 lb Patient Weight 07/16/24 23:59 Weight 168 lb Laboratory Results - last 24 hr 07/15/24 10:39: POC Glucose 104 07/15/24 11:02: Triglycerides 109, Cholesterol 172, LDL Cholesterol Direct 100.25, VLDL Cholesterol 22, HDL Cholesterol 54, Cholesterol/HDL Ratio 3.2 07/15/24 16:26: POC Glucose 127 H 07/15/24 20:20: POC Glucose 117 H 07/15/24 22:20: POC Glucose 72 07/16/24 02:17: POC Glucose 57 L 07/16/24 02:41: POC Glucose 60 L 07/16/24 05:23: POC Glucose 90 07/16/24 06:50: WBC 7.7, RBC 3.56 L, Hgb 11.6 L, Hct 34.3 L, MCV 96.3, MCH 32.5 H, MCHC 33.8, RDW 14.4, Plt Count 256, MPV 7.9, Neut % (Auto) 55.9, Lymph % (Auto) 23.8, [place] % (Auto) 4.5, Eos % (Auto) 15.1 H, Baso % (Auto) 0.7, Neut # (Auto) 4.3, Lymph # (Auto) 1.8, [place] # (Auto) 0.3, Eos # (Auto) 1.2 H, Baso # (Auto) 0.1, Sodium 140, Potassium 4.3, Chloride 114 H, Carbon Dioxide 19 L, Anion Gap 11.3, BUN 18 H D, Creatinine 1.20 H D, Estimated Creat Clear 49, Estimated GFR 44 L, Est GFR ( Amer) 53 L D, Glucose 95, Calcium 8.2 L I & O for Labs for Last 24 Hours: Intake & Output 07/13/24 07/14/24 07/15/24 07/16/24 23:59 23:59 23:59 23:59 Intake Total 1000 / 1625 3405 / 4030 625 / 625 Output Total 0 / 0 0 / 0 0 / 0 Balance 1000 / 1625 3405 / 4030 625 / 625 Weight 163 lb 165 lb 168 lb Constitutional: Present no acute distress Respiratory: Present normal respiratory effort Cardiac: Present Reg Rate and Rhythm GI: Present normal bowel sounds; Absent tenderness Extremities: Present normal inspection and full ROM Skin: Present intact; Absent erythema Neuro: Present Grossly Intact and moves all extremities Assessment and Plan *Assessment and plan (1) KALIA (acute kidney injury): Status: Acute Category: Medical Code(s): N17.9 - Acute kidney failure, unspecified (2) Nausea: Status: Acute Category: Medical Code(s): R11.0 - Nausea (3) Abdominal pain: Status: Acute Qualifiers: Abdominal location: generalized Qualified Code(s): R10.84 - Generalized abdominal pain Category: Medical Code(s): R10.9 - Unspecified abdominal pain (4) Dizziness: Status: Acute Category: Medical Code(s): R42 - Dizziness and giddiness (5) Frequent falls: Status: Acute Category: Medical Code(s): R29.6 - Repeated falls (6) Hypothyroidism: Status: Acute Category: Medical Code(s): E03.9 - Hypothyroidism, unspecified (7) Carotid artery disease: Status: Acute Category: Medical Code(s): I77.9 - Disorder of arteries and arterioles, unspecified (8) PAD (peripheral artery disease): Status: Acute Category: Medical Code(s): I73.9 - Peripheral vascular disease, unspecified (9) Elevated TSH: Status: Acute Category: Medical Code(s): R79.89 - Other specified abnormal findings of blood chemistry (10) Paroxysmal A-fib: Status: Acute Category: Medical Code(s): I48.0 - Paroxysmal atrial fibrillation (11) Coronary artery disease: Status: Acute Qualifiers: Coronary Disease-Associated Artery/Lesion type: [place] artery [place] vs. transplanted heart: [place] heart Associated angina: without angina Qualified Code(s): I25.10 - Atherosclerotic heart disease of [place] coronary artery without angina pectoris Category: Medical Code(s): I25.10 - Atherosclerotic heart disease of [place] coronary artery without angina pectoris (12) Status post coronary artery stent placement: Status: Acute Category: Surgical Code(s): Z95.5 - Presence of coronary angioplasty implant and graft (13) Hyperlipidemia: Status: Acute Qualifiers: Hyperlipidemia type: mixed hyperlipidemia Qualified Code(s): E78.2 - Mixed hyperlipidemia Category: Medical Code(s): E78.5 - Hyperlipidemia, unspecified (14) Diabetes mellitus: Status: Chronic Qualifiers: Diabetes mellitus complication status: with other specified complication Diabetes mellitus group home insulin use: unspecified group home insulin use status Diabetes mellitus type: type 2 Qualified Code(s): E11.69 - Type 2 diabetes mellitus with other specified complication Category: Medical Code(s): E11.9 - Type 2 diabetes mellitus without complications Plan RUQ U/S basically normal, advance diet, possible discharge later today.
[2024-07-16 12:27] LABS: POC Glucose,Bedside 96 (70-110)
--- NOTE | 2024-07-19 11:09 | SW/DCPLANNER ---
Phoned patient 2x. Patients mailbox is full and cant except any new messages at this time. Annabella Jimenez
--- NOTE | 2024-07-21 13:29 | P.DS_ITS ---
General Admission date:: 07/14/24 Discharge date: 07/16/24 HPI HPI HPI: This patient is a 74-year-old female with a history of CAD status post stenting, most recently in June, carotid artery disease status post carotid endarterectomy and stenting, peripheral arterial disease, hypertension, hyperlipidemia, hypothyroidism, prior TIA, and paroxysmal atrial fibrillation presenting to the emergency department for evaluation with concern for lightheadedness, fatigue, nausea, poor appetite, and low blood pressure at home. According to the patient, she has been having lightheadedness and nausea for the last 6 weeks and has not been feeling very well. As a result, she has had poor oral intake and has overall been very weak at home with multiple falls over the last few months. She notes that she has been seen outpatient for this as well as by cardiology and they thought maybe it could be related to her amiodarone, so they took her off this but she continues to feel bad. She notes to the also thought it could be related to her heart, so she underwent recent cath at the end of June and did have blockages for which she needed stents. She also notes she is awaiting outpatient renal artery ultrasound and carotid ultrasound. She notes she is having some generalized nonspecific abdominal pain and she has had alternating episodes of constipation and diarrhea. On Thursday 2 days ago she had some diarrhea, but she has not had a bowel movement since. She notes she is not passing very much gas. She notes that these symptoms have all been waxing waning over the last 6 weeks, but whenever they flareup at their worst she gets really severe light sensitivity. She denies any true visual changes, numbness, tingling, unilateral weakness, vertigo type symptoms, chest pain, shortness of breath, leg swelling, or other concerns. (above as per ER physician) She was started on IV fluids as well as IV Reglan, Toradol, and acetaminophen in the ER. She did have low blood pressure and her renal function had worsened. Her creatinine was up to 1.7. She continues to have an elevated TSH although it has improved. She was admitted for further evaluation and treatment and cardiology was consulted. Of note, the patient states she has had nausea and vomiting episodes for the past 6 weeks. She has had very little p.o. intake and also has difficulty keeping down liquids. Hospital Course Hospital Course Hospital Course: The patient's initial imaging was relatively unremarkable. Her abdominal/pelvic CT did show some mild gallbladder wall thickening with small stones or sludge. She was started on IV fluids and cardiology was consulted. A right upper quadrant ultrasound was also ordered. Cardiology did a limited echo and it showed no significant change from previous. Her renal arteries were without significant obstruction per abdominal CTA on this admission and her neck CTA showed no significant stenosis. Cardiology felt she was stable for discharge and could follow-up with him in the office. By 07/20/2024, she was feeling better and was hungry. She was started on her diet. Her right upper quadrant ultrasound was basically normal. She tolerated her diet and was stable to be discharged home and will follow-up Dr. Garcia. Exam Data for Last 24 hours Vital signs and Labs for Last 24 Hours: Temp Pulse Resp BP Pulse Ox O2 Del Method 98.6 F 92 H 18 137/73 98 Room Air 07/16/24 07:50 07/16/24 07:50 07/16/24 07:50 07/16/24 07:50 07/16/24 07:50 07/16/24 13:00 Narrative: Constitutional Constitutional: no acute distress *Routine HEENT Exam Head: Present normocephalic and atraumatic Eye: Present EOMI and PERRL ENT: Present mucous membranes dry *Routine Neck Exam Neck: Present supple and full ROM *Routine Respiratory Exam Respiratory: Present CTA bilaterally *Routine Cardiovascular Exam Cardiovascular: Present RRR *Routine Abdominal Exam Abdominal: Present soft, normoactive bowel sounds and tenderness (diffuse) *Routine Rectal Exam Rectal:: deferred *Routine Genitalia Exam Genitalia:: deferred *Routine Extremities Exam Extremities: Absent cyanosis, clubbing or edema *Routine Skin Exam Skin: Present intact; Absent erythema *Routine Neurological Exam Neurological: Present alert and oriented X3 DS: Diagnosis Discharge Diagnosis (1) KALIA (acute kidney injury): Status: Acute Code(s): N17.9 - Acute kidney failure, unspecified (2) Nausea: Status: Acute Code(s): R11.0 - Nausea (3) Abdominal pain: Status: Acute Code(s): R10.9 - Unspecified abdominal pain Qualifiers: Abdominal location: generalized Qualified Code(s): R10.84 - Generalized abdominal pain (4) Dizziness: Status: Acute Code(s): R42 - Dizziness and giddiness (5) Frequent falls: Status: Acute Code(s): R29.6 - Repeated falls (6) Hypothyroidism: Status: Acute Code(s): E03.9 - Hypothyroidism, unspecified (7) Carotid artery disease: Status: Acute Code(s): I77.9 - Disorder of arteries and arterioles, unspecified (8) PAD (peripheral artery disease): Status: Acute Code(s): I73.9 - Peripheral vascular disease, unspecified (9) Elevated TSH: Status: Acute Code(s): R79.89 - Other specified abnormal findings of blood chemistry (10) Paroxysmal A-fib: Status: Acute Code(s): I48.0 - Paroxysmal atrial fibrillation (11) Coronary artery disease: Status: Acute Code(s): I25.10 - Atherosclerotic heart disease of [place] coronary artery without angina pectoris Qualifiers: Coronary Disease-Associated Artery/Lesion type: [place] artery [place] vs. transplanted heart: [place]asta heart Associated angina: without angina Qualified Code(s): I25.10 - Atherosclerotic heart disease of [place] coronary artery without angina pectoris (12) Status post coronary artery stent placement: Status: Acute Code(s): Z95.5 - Presence of coronary angioplasty implant and graft (13) Hyperlipidemia: Status: Acute Code(s): E78.5 - Hyperlipidemia, unspecified Qualifiers: Hyperlipidemia type: mixed hyperlipidemia Qualified Code(s): E78.2 - Mixed hyperlipidemia (14) Diabetes mellitus: Status: Chronic Code(s): E11.9 - Type 2 diabetes mellitus without complications Qualifiers: Diabetes mellitus complication status: with other specified complication Diabetes mellitus residential insulin use: unspecified residential insulin use status Diabetes mellitus type: type 2 Qualified Code(s): E11.69 - Type 2 diabetes mellitus with other specified complication Meds Home Medications and Allergies Home Medications ?Medication ?Instructions ?Recorded ?Confirmed ?Type metformin 1,000 mg tablet 1,000 mg PO BID 01/02/21 07/15/24 History atorvastatin 80 mg tablet 80 mg PO DAILY 02/03/22 07/15/24 History blood sugar diagnostic (Accu-Chek #10 ea 02/03/22 07/14/24 History Amanda Plus test strips) clopidogrel 75 mg tablet 75 mg PO DAILY 02/03/22 07/14/24 History lancets (Accu-Chek Softclix #100 ea 02/03/22 07/14/24 History Lancets) lisinopril 10 mg tablet 10 mg PO DAILY 02/03/22 07/14/24 History pen needle, diabetic 31 gauge x #1,200 ea 02/03/22 07/14/24 History 5/16 (Droplet Pen Needle) vitamin B12 500 mcg-folic acid 400 1 tab PO DAILY Supplement 06/29/23 07/14/24 History mcg tablet insulin glargine 100 unit/mL (3 40 unit SQ HS 10/01/23 07/15/24 History mL) subcutaneous pen (Lantus Solostar U-100 Insulin) insulin lispro 100 unit/mL 0 unit (0 mL) SQ ACHS #0 mL 10/09/23 07/15/24 Rx subcutaneous solution (Humalog U-100 Insulin) cholecalciferol (vitamin D3) 10 10 mcg PO DAILY 03/31/24 07/14/24 History mcg (400 unit) capsule levothyroxine 50 mcg tablet 50 mcg PO DAILY 03/31/24 07/14/24 History metoprolol tartrate 25 mg tablet 25 mg PO BID #60 tabs 06/22/24 07/15/24 Rx empagliflozin 25 mg tablet 25 mg PO DAILY 06/27/24 07/14/24 History (Jardiance) apixaban 5 mg tablet (Eliquis) 5 mg PO BID 07/15/24 07/15/24 History oxybutynin chloride 5 mg 5 mg PO DAILY 07/15/24 07/15/24 History tablet,extended release 24 hr spironolactone 25 mg tablet 25 mg PO BID 07/15/24 07/15/24 History pantoprazole 40 mg tablet,delayed 40 mg PO DAILY #30 tabs 07/16/24 Rx release (Protonix) promethazine 12.5 mg tablet 12.5 mg PO Q6H PRN nausea and 07/16/24 Rx vomiting #20 tabs New Prescriptions to Start Prescriptions: pantoprazole [Protonix] Cosme Garcia promethazine Cosme Garcia Allergies Allergy/AdvReac Type Severity Reaction Status Date / Time No Known Allergies Allergy Verified 07/14/24 11:35 Discharge Plan Disposition Patient Disposition: Home, Self-Care Condition: Good Follow up Plan Follow up with: Cosme Garcia MD [Primary Care Provider] - 07/21/24 (Please call ThursdayAugust 18 to schedule your hospital follow up appointment with your Primary Care Doctor! Thank you! (:) Son Jiang PA [Physician Manager Strategic Development] - 2 weeks (An email was sent to the cardiology office for your appointment. Cardiology should call to inform you of your appointment date and time. If you do not recieve a call please call the cardiology office to schedule a follow up appointment with cardiology in 2-3 weeks. Thank you in advance! ) Prescriptions/Medication Reconciliation: New pantoprazole [Protonix] 40 mg tablet,delayed release (DR/EC) 40 mg PO DAILY Qty: 30 0RF promethazine 12.5 mg tablet 12.5 mg PO Q6H PRN (Reason: nausea and vomiting) Qty: 20 0RF Continued atorvastatin 80 mg tablet 80 mg PO DAILY lisinopril 10 mg tablet 10 mg PO DAILY (DME) pen needle, diabetic [Droplet Pen Needle] 31 gauge x 5/16 needle See Rx Instructions .ROUTE .MEDSUPPLY Qty: 1200 Rx Instructions: As directed (DME) Accu-Chek Amanda Plus test strp Strip See Rx Instructions .ROUTE .MEDSUPPLY Qty: 10 Rx Instructions: As directed clopidogrel 75 mg tablet 75 mg PO DAILY (DME) lancets [Accu-Chek Softclix Lancets] Misc See Rx Instructions .ROUTE .MEDSUPPLY Qty: 100 Rx Instructions: As directed cholecalciferol (vitamin D3) 10 mcg (400 unit) capsule 10 mcg PO DAILY levothyroxine 50 mcg tablet 50 mcg PO DAILY Jardiance 25 mg tablet 25 mg PO DAILY metoprolol tartrate 25 mg tablet 25 mg PO BID Qty: 60 5RF metformin 1,000 MG tablet 1,000 mg PO BID vitamin [id number] acid 500-400 mcg Tablet 1 tab PO DAILY Rx Instructions: administer with a meal insulin glargine [Lantus Solostar U-100 Insulin] 100 unit/mL (3 mL) insulin pen 40 unit SQ HS insulin lispro [Humalog U-100 Insulin] 100 unit/mL Solution 0 unit SQ ACHS Qty: 0 0RF spironolactone 25 mg tablet 25 mg PO BID oxybutynin chloride 5 mg tablet extended release 24hr 5 mg PO DAILY Eliquis 5 mg tablet 5 mg PO BID Discontinued famotidine 20 mg Tablet 20 mg PO BID Qty: 0 0RF ferrous sulfate 325 mg (65 mg iron) tablet 325 mg PO BID Qty: 60 0RF Problem Reconciliation Problems Reviewed?: Yes Patient Discharge Instructions ACTIVITY: Continue current activity DIET: continue same diet Patient Instructions: Exercises to Help Prevent Falls, DI for Dehydration -- Adult, DI for Abdominal Pain-Adult, DI for Nausea -- Adult, DI for Dizziness- Nonvertigo Print Language: Arabic Providers Primary Care Provider: Cosme Garcia Admit Provider: Cosme Garcia Attending Provider: Cosme Garcia
== END 2024-07-16 15:00 | disposition home or self-care (01) ==
LOC: ER 17:17 → 2ND 20:53
PROVIDERS: Family Medicine; Physician Assistant; Admitting Provider Family Medicine; Emergency Provider Emergency Medicine; PCP Family Medicine; Visit Provider Family Medicine
DX: N17.9 Acute kidney failure, unspecified (principal); E86.0 Dehydration; I48.0 Paroxysmal atrial fibrillation; I25.10 Atherosclerotic heart disease of native coronary artery without angina pectoris; E11.69 Type 2 diabetes mellitus with other specified complication; R11.0 Nausea; R42 Dizziness and giddiness; R29.6 Repeated falls; E03.9 Hypothyroidism, unspecified; I77.9 Disorder of arteries and arterioles, unspecified; I73.9 Peripheral vascular disease, unspecified; R79.89 Other specified abnormal findings of blood chemistry; Z95.5 Presence of coronary angioplasty implant and graft; E78.2 Mixed hyperlipidemia; R10.84 Generalized abdominal pain; D64.9 Anemia, unspecified; Z79.4 Long term (current) use of insulin; Z79.899 Other long term (current) drug therapy
CPT/HCPCS: 36415; 70450; 70496; 70498; 71046; 72125; 74174; 76705; 80048; 80053; 80061; 81001; 82803; 82962; 83036; 83605; 83690; 83735; 84100; 84436; 84443; 84484; 85025; 86803; 87389; 93005; 93308; 99285; G0378; J0131; J1885; J2765; J7030; Q9967

== ENCOUNTER 2024-08-01 14:43 | Outpatient (CLI) | payer MEDICARE, OTHER, SELFPAY ==
[2024-08-01 15:19] LABS: Red Blood Count 3.56 M/mm3 (4.20-5.40); White Blood Count 7.8 K/mm3 (4.8-10.8)
[2024-08-01 15:20] LABS: Basophils # 0.1 K/mm3 (0-0.2); Basophils % 0.9 % (0.1-2.0); Eosinophils # 0.6 K/mm3 (0.0-0.4); Eosinophils % 8.2 % (0.1-12.0); Hemoglobin 11.2 g/dL (12.2-16.2); Lymphocytes # 1.9 K/mm3 (0.7-4.5); Lymphocytes % 24.6 % (10-50); Mean Corpuscular Hemoglobin 31.5 pg (27.0-31.2); Mean Corpuscular Volume 98.3 fl (81-99); Mean Platelet Volume 9.8 fl (7.4-10.4); Monocytes # 0.5 K/mm3 (0.1-1.0); Monocytes % 6.9 % (1.7-9.3); Neutrophils # 4.6 K/mm3 (1.8-7.8); Neutrophils % 58.5 % (37.0-80.0); Platelet Count 274 K/mm3 (142-424); Red Cell Distribution Width 13.5 % (11.5-17.5)
[2024-08-01 15:31] LABS: Hemoglobin A1C 7.9 % (4.0-6.0)
[2024-08-01 16:22] LABS: Alanine Aminotransferase 22 U/L (12-78); Albumin Level 4.3 g/dl (3.5-5.0); Alkaline Phosphatase 99 U/L (38-126); Anion Gap 15.1 mEq/L (5-15); Aspartate Amino Transferase 29 U/L (14-36); Bilirubin,Direct 0.4 mg/dl (0.0-0.4); Bilirubin,Indirect 0.2 mg/dL (0.0-0.9); Bilirubin,Total 0.6 mg/dl (0.2-1.3); Bilirubin,Unconjugated 0.2 mg/dL (0.0-1.1); Blood Urea Nitrogen 41 mg/dl (7-17); Calcium 9.3 mg/dl (8.4-10.2); Carbon Dioxide 23 mmol/L (22.0-30.0); Chloride 104 mmol/L (98-107); Chol/HDL Ratio 2.8 (1-3.5); Cholesterol 181 mg/dl (140-200); Estimated Glomerular Filt Rate 31 ml/min (>60); GFR (African American) 38 ML/MIN (>60); Glucose 184 mg/dl (74-100); HDL Cholesterol 64 mg/dl (40-60); Potassium 5.1 mmoL/L (3.5-5.1); Sodium 137 mmol/L (136-145); Total Protein,Serum 7.2 g/dl (6.3-8.2); Triglycerides 130 mg/dl (30-150); VLDL Cholesterol 26 mg/dL (0-40)
[2024-08-01 16:41] LABS: Free T4 (Free Thyroxine) 0.89 ng/dl (0.78-2.19)
== END 2024-08-01 23:59 | disposition home or self-care (01) ==
LOC: LAB 14:43
PROVIDERS: PCP Family Medicine; Visit Provider Physician Assistant
DX: R29.6 Repeated falls (principal); I77.9 Disorder of arteries and arterioles, unspecified; I73.9 Peripheral vascular disease, unspecified; I25.10 Atherosclerotic heart disease of native coronary artery without angina pectoris; I11.9 Hypertensive heart disease without heart failure; E78.5 Hyperlipidemia, unspecified; E03.9 Hypothyroidism, unspecified; E11.9 Type 2 diabetes mellitus without complications; Z79.84 Long term (current) use of oral hypoglycemic drugs; Z79.4 Long term (current) use of insulin
CPT/HCPCS: 36415; 80048; 80061; 80076; 83036; 84439; 84443; 85025

== ENCOUNTER 2024-08-24 10:33 | Outpatient (CLI) | payer MEDICARE, OTHER, SELFPAY ==
[2024-08-24 11:39] LABS: Anion Gap 18.2 mEq/L (5-15); Blood Urea Nitrogen 34 mg/dl (7-17); Calcium 9.4 mg/dl (8.4-10.2); Carbon Dioxide 24 mmol/L (22.0-30.0); Chloride 104 mmol/L (98-107); Estimated Glomerular Filt Rate 37 ml/min (>60); GFR (African American) 44 ML/MIN (>60); Glucose 156 mg/dl (74-100); Potassium 5.2 mmoL/L (3.5-5.1); Sodium 141 mmol/L (136-145)
== END 2024-08-24 23:59 | disposition home or self-care (01) ==
PROVIDERS: Nurse Practitioner Family; Physician Assistant; PCP Family Medicine; Visit Provider Internal Medicine
DX: N17.9 Acute kidney failure, unspecified (principal); I25.10 Atherosclerotic heart disease of native coronary artery without angina pectoris; E03.9 Hypothyroidism, unspecified; D64.9 Anemia, unspecified; R53.83 Other fatigue; R42 Dizziness and giddiness
CPT/HCPCS: 36415; 80048; 84443

== ENCOUNTER 2024-09-14 10:07 | Outpatient (RCR) | payer MEDICARE, OTHER, SELFPAY | END 2024-11-02 14:00 | disposition home or self-care (01) | LOC: CR 10:07 | PROVIDERS: Visit Provider Internal Medicine | DX: I25.10 Atherosclerotic heart disease of native coronary artery without angina pectoris (principal) | CPT/HCPCS: 93798 ==

== ENCOUNTER 2024-09-23 14:04 | Outpatient (CLI) | payer MEDICARE, OTHER, SELFPAY ==
[2024-09-23 14:41] LABS: Basophils # 0.1 K/mm3 (0-0.2); Basophils % 0.6 % (0.1-2.0); Eosinophils # 0.6 K/mm3 (0.0-0.4); Eosinophils % 7.1 % (0.1-12.0); Hematocrit 35.4 % (37.0-47.0); Hemoglobin 11.4 g/dL (12.2-16.2); Lymphocytes # 1.9 K/mm3 (0.7-4.5); Lymphocytes % 22.1 % (10-50); Mean Corpuscular HGB Conc 32.2 g/dL (31.8-35.4); Mean Corpuscular Hemoglobin 31.8 pg (27.0-31.2); Mean Corpuscular Volume 98.6 fl (81-99); Mean Platelet Volume 9.7 fl (7.4-10.4); Monocytes # 0.6 K/mm3 (0.1-1.0); Monocytes % 7.4 % (1.7-9.3); Neutrophils # 5.4 K/mm3 (1.8-7.8); Neutrophils % 61.8 % (37.0-80.0); Platelet Count 308 K/mm3 (142-424); Red Blood Count 3.59 M/mm3 (4.20-5.40); Red Cell Distribution Width 13.3 % (11.5-17.5); White Blood Count 8.7 K/mm3 (4.8-10.8)
== END 2024-09-23 23:59 | disposition home or self-care (01) ==
LOC: LAB 14:05
PROVIDERS: PCP Family Medicine; Visit Provider Physician Assistant
DX: R53.83 Other fatigue (principal); R42 Dizziness and giddiness; E03.9 Hypothyroidism, unspecified; I25.10 Atherosclerotic heart disease of native coronary artery without angina pectoris; D64.9 Anemia, unspecified
CPT/HCPCS: 36415; 85025

== ENCOUNTER 2024-10-26 13:16 | Outpatient (CLI) | payer MEDICARE, OTHER, SELFPAY ==
--- NOTE | 2024-10-26 13:21 | CA_ITS ---
APPROVED REPORT EXAM: Comprehensive 2D, Doppler, and color-flow Echocardiogram Hat Sprayer: Nila Morfin RVT Ht: 5 ft 2 in Wt: 170lbs BSA: 1.78 BP: 130/65 mmHg Indications: A-FIB,MOD ,MILD MS,HTN,DM,HLD,CAD,MAC 2D Dimensions LA Volume 77.60 mL LA Volume Index 43.35 mL/m2 (M/F) 16-34 M-Mode Dimensions RVDd 2.53 cm (0.9-2.6) LA Diam 4.20 cm (1.9-4.0) LVDd 4.98 cm (3.5-5.7) LVDs 2.29 cm (3.5-5.7) IVSd 0.70 cm (0.6-1.1) PWd 0.50 cm (0.6-1.1) EF (Teich) 84.70% FS 54.00% EDV (Teich) 117.10 mL TAPSE 2.17 (<1.7) ESV (Teich) 17.90 mL LV Diastology E Decel Time 243 (160-240 msec) E/A Ratio 0.7 Aortic Valve HOME Index 1.20 cm2/m2 AoV Peak Saad. 172.0 (50-130 cm/s) AO Peak GR. 11.90 mmHg AO Mean GR. 7.30 (<5 mmHg) AO VTI 31.3 (18-25 cm) HOME (VTI) 2.20 (2.5-4.5 cm2) Mitral Valve MV E Max Saad. 92.0 (40-130 cm/s) MV A Velocity 130.0 (40-130 cm/s) E/A Ratio 0.71 MV Mean Gr. 4.30 (<2mmHg) MV PHT 71.0 ms Pulmonary Valve PV Peak Velocity 141.0 (50-150 cm/s) Tricuspid Valve TR P. Velocity 334.00 cm/s RAP Estimate 10.00 mmHg RVSP 54.60 mmHg Left Ventricle The left ventricle is normal size. The left ventricular systolic function is low normal. There is increased LV wall thickness. The septum is asynchronous. Regional wall motion cannot be well-evaluated in the setting of technically difficult study. Diastolic function is indeterminate. LVEF is 50%. Right Ventricle Right ventricle is mildly dilated. The right ventricular systolic function is normal. Atria Left atrium is moderately dilated. Right atrium is mildly dilated. There is no Doppler evidence of interatrial shunt. Aortic Valve Aortic valve is mildly thickened. Mild to moderate aortic stenosis is present. HOME by 2D planimetry is is 1.6 cm???. Peak velocity 2.1 m/s. Mean AV gradient 10 mmHg. Max AV gradient 14 mmHg, however transaortic gradients are underestimated due to technically difficult imaging. Mild aortic regurgitation. Mitral Valve Moderate mitral annular calcification. The mitral valve leaflets are mildly thickened. Borderline mitral stenosis is present. Mean MV gradient 5 mmHg (HR 70 bpm). Mild mitral regurgitation. Tricuspid Valve Tricuspid valve is grossly normal in structure and function. Trace tricuspid regurgitation. There is insufficient TR jet to estimate RVSP. Pulmonic Valve The pulmonary valve is normal in structure. Trace pulmonic regurgitation. Great Vessels The aortic root is normal in size. IVC is normal in size and collapses >50% with inspiration. Pericardium There is no pericardial effusion. Other Information Study Quality: Technically Difficult Conclusion Technically difficult study due to poor acoustic windows. Low normal LV systolic function (LVEF 50%). Asynchronous septum. Mild RV dilation with normal RV function. Biatrial dilation. Mild to moderate (HOME by 2D planimetry is is 1.6 cm???. Peak velocity 2.1 m/s. Mean AV gradient 10 mmHg. Max AV gradient 14 mmHg, however transaortic gradients are underestimated due to technically difficult imaging). Mild AI. Borderline MS (mean MV gradient 5 mmHg at HR 70 bpm). Mild MR. Electronically signed by : Arpita Person MD 11/08/2024 21:04:37
--- NOTE | 2024-10-26 14:03 | US_ITS ---
FINAL REPORT CLINICAL HISTORY: thyroid nodule COMPARISON: 01/01/2024 FINDINGS: Sonographic images of the thyroid gland were obtained. The right thyroid lobe measures 45 mm. in length. The left thyroid lobe measures 38 mm. in length. The thyroid isthmus measures 5 mm. The echogenicity is normal. There is a 2 mm nodule with a linear hyperechoic component, also seen on the prior exam. This may represent a colloid cyst or a partially calcified nodule. No new nodules are identified. IMPRESSION: Stable to slightly smaller 2 mm thyroid nodule when compared to prior exam of December 2023. No new nodules are identified. No further follow-up is indicated at this time. Reviewed, Interpreted and Dictated by Batool Murcia MD Transcribed by Nat Colbert Authenticated and [facility]
== END 2024-10-26 23:59 | disposition home or self-care (01) ==
LOC: RT 13:18
PROVIDERS: PCP Family Medicine; Visit Provider Physician Assistant
DX: I51.7 Cardiomegaly (principal); I35.2 Nonrheumatic aortic (valve) stenosis with insufficiency; I34.0 Nonrheumatic mitral (valve) insufficiency; I34.2 Nonrheumatic mitral (valve) stenosis; Z95.5 Presence of coronary angioplasty implant and graft; E04.1 Nontoxic single thyroid nodule; E03.9 Hypothyroidism, unspecified
CPT/HCPCS: 76536; 93306

== ENCOUNTER 2024-11-28 10:41 | Outpatient (CLI) | payer MEDICARE, OTHER, SELFPAY ==
--- NOTE | 2024-11-28 10:45 | XR_ITS ---
FINAL REPORT TECHNIQUE: 3 views left knee CLINICAL HISTORY: fall w/pain COMPARISON: None FINDINGS: AP, lateral and oblique views of the left knee were obtained. There is no prior exam for comparison. There is a transverse fracture of the patella, nondisplaced. Tricompartment degenerative joint disease is present. The soft tissues are normal. There is a moderate joint effusion. IMPRESSION: Transverse fracture of the patella, nondisplaced. Moderate joint effusion and tricompartment degenerative joint disease. Reviewed, Interpreted and Dictated by Kiley Mcgee MD Transcribed by Nat Colbert Authenticated and [facility]
--- NOTE | 2024-11-28 10:45 | XR_ITS ---
FINAL REPORT CLINICAL HISTORY: fall w/pain COMPARISON: None FINDINGS: AP and frog leg views of the left hip were obtained. There is no acute fracture or dislocation. Degenerative joint disease is present. Vascular calcifications are identified. IMPRESSION: No acute osseous abnormality of the left hip. Changes of degenerative joint disease are present. Reviewed, Interpreted and Dictated by Kiley Mcgee MD Transcribed by Nat Colbert Authenticated and [facility]
== END 2024-11-28 23:59 | disposition home or self-care (01) ==
LOC: RAD 10:42
PROVIDERS: PCP Family Medicine; Visit Provider Nurse Practitioner Family
DX: R29.6 Repeated falls (principal)
CPT/HCPCS: 73502; 73562

== ENCOUNTER 2025-01-18 09:12 | Outpatient (CLI) | payer MEDICARE, OTHER, SELFPAY ==
--- OUTSIDE RECORDS SUMMARY | 2024-07-29 07:45 | XMS_ITS ---
Author Organization [facility] Address [address] [facility] [address] [facility] [address] [place] [phone] Care Team Providers Care Machine Try Out Setter Name Role Phone Cosme Garcia Primary Care Provider [phone] REASON FOR VISIT F/U [facility] Encounters Encounter Location Date Provider Diagnosis [facility] [address] [place] [id number] 07/29/2024 Cosme Garcia Plan Of Treatment Next Appt Details Provider Name:Cosme Amos ry, 02/20/2025 01:30:00 PM, [address], [address], [place], [place], [phone], Progress Notes * URIAHSwathiJenniferOB: 9 (74 yo F)Acc No.[id number]:07/29/2024 Progress Notes Patient: Yesi UGALDE Provider: Damion Garcia M.D. :1950 A ge:74 Y S ex:Female Date:07/29/2024 Address:[facility] [id number] Subjective: * Chief Complaints: * 1 . F/U [facility]. * Medical History: Objective: * Vitals: Assessment: Plan: * Treatment: * Billing Information: * Visit Code: * Procedure Codes: * Electronic signature of Carol Garcia MD on 01/18/2025 at 09:18 AM EDT Sign off status: Pending * Provider: Damion Garcia M.D. Date: 09/29/2023 Generated for Alexander camp/Vamsi/eTransmitting on: 0 01/18/2025 09:18 AM EDT
--- OUTSIDE RECORDS SUMMARY | 2024-08-31 09:30 | XMS_ITS ---
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 On Sunglasses ally Twice a day 08/31/2024 Active Vital Signs Blood pressure systolic 120 mm Hg 08/31/19 25 Blood pressure diastolic 70 mm Hg 025 Heart Rate 106 /min 08/31/2024 Height 63 in 08/31/2024 Weight 167.4 lbs 08/31/2024 BMI 29.65 kg/m2 08/31/2024 Encounters Encounter Location Date Provider Diagnosis [facility] [address] [facility] [address] [place], [place] [id number] 08/31/2024 Cosme Garcia Open wound of right [...] [address], [address], [place], [place], [id number], Progress Notes * Alec FERNANDEZOB: 9 (74 yo F)Acc No.[id number]:08/31/2024 Progress Notes Patient: Yesi UGALDE Provider: Damion Garcia M.D. :1950 A ge:74 Y S ex:Female Date:08/31/2024 Address:[address] [place], [place] [address], [id number] Subjective: * Chief Complaints: * 1 . [...] to Pharmacist: E11.9, Taking FreeStyle Jg 3 Roe - Device as directed , Discontinued Spironolactone [...] progress * Billing Information: * Visit Code: 33387 Office Visit, Est Pt., Level 3. * Procedure Codes: G2211 Complex e/m visit add on. * Electronic signature of Carol Garcia MD on 01/18/2025 at 09:19 AM EDT Sign off status: Pending * Provider: Damion Garcia M.D. Date: 0 08/31/2024 Generated for Alexander camp/Vamsi/Yung on: 0 01/18/2025 09:19 AM EDT History and Physical Notes * HPI [...]
--- OUTSIDE RECORDS SUMMARY | 2024-10-21 05:30 | XMS_ITS ---
Author Organization [facility] Address [address] [facility] [address] [place] [id number] Care Team Providers Care Quality Assurance Consultant Name Role Phone Cosme Garcia Primary Care Provider [phone] Allergies No Known Allergies Results Component [...] 47 Performing Lab: Notes/Report: Test performed by [facility] [address] [place] [address] , [address], [place] [address] Andrea Flores MD, Egg Factory Worker CLIA: [id number] Sodium 144 135-145 mmol/L Potassium 4.4 3.5-5.3 [...] Interpretation:Normal Performing Lab: Notes/Report: Test performed by [facility] [address] [place] [address] , [place] [address] Andrea Flores MD, Egg Factory Worker CLIA: [id number] Thyroxine Free (free T4) 1.66 0.86-1.76 ng/dL P-Iron Reviewed date:10/24/2024 12:19:30 PM Interpretation:Normal Performing Lab: Notes/Report: Test performed by [facility] [address] [place] [address] , [facility] [place] [address] Andrea Flores MD, Egg Factory Worker CLIA: [id number] Iron 42 37-145 ug/dL P-Lipid Panel Reviewed date:10/24/2024 12:19:30 PM Interpretation:Normal Performing Lab: Notes/Report: Test performed by [facility] [address] [place] [address] , [facility] [place] [address] Andrea Flores MD, Egg Factory Worker CLIA: [id number] Cholesterol 167 <200 mg/dL Triglycerides 108 <150 [...] Interpretation:Normal Performing Lab: Notes/Report: Test performed by [facility] [address] [place] [address] Dr[facility], [place] [address] Andrea Flores MD, Egg Factory Worker CLIA: [id number] Phosphorus 4.2 2.5-4.5 mg/dL P-TSH Reviewed date:10/24/2024 12:19:30 PM Interpretation:7.02 Performing Lab: Notes/Report: Test performed by [facility] [address] [place] [address] , [address], [place] [address] Andrea Flores MD, Egg Factory Worker CLIA: [id number] TSH 7.02 0.43-5.25 mU/L P-Microalbumin/Creatinine, R andom Urine Sample Reviewed date:10/24/2024 12:19:30 PM Interpretation:Album/Creat 65 Performing Lab: Notes/Report: Test performed by [facility] [address] [place] [address] , [address], [place] [address] Andrea Flores MD, Egg Factory Worker CLIA: [id number] Albumin/Creatinine Ratio, Urine 65 0-30 ug/m g [...] a day A ctive FreeStyle Jg 3 [place] - as directed 08/19/2024 Active Accu-Chek Amanda [...] 10/21/2024 Encounters Encounter Location Date Provider Diagnosis [facility] [address] [facility] [address] [place], [place] [phone] 10/21/2024 Cosme Garcia Type 2 diabetes darren [...] Amos , 02/20/2025 01:30:00 PM, [address] [facility] [address] [facility], [address], [place], [place], [id number], Progress Notes * Alec FERNANDEZOB: 9 (74 yo F)Acc No.[id number]:10/21/2024 Progress Notes Patient: Yesi UGALDE Provider: Damion Garcia M.D. :1950 A ge:74 Y S ex:Female Date:10/21/2024 Address:[address] [place] [address] [place], [id number] Subjective: * Chief Complaints: * 1 . [...] to Pharmacist: E11.9, Taking FreeStyle Jg 3 [place] - Device as directed , Taking Jardiance [...] G 2211 Complex e/[place], [address] GLUCOSE TEST, [address]35[address] GLYCATED HEMOGLOBIN TEST, Modifiers: QW , 33218 CBC WITH AUTO DIFF, 3051F HG A1C>EQUAL 7.0%<8.0%, G8752 MOST RECENT SYSTOLIC BP < 140MM HG, G8754 MOST RECENT DIASTOLIC BP < 90MM HG * Follow Up: 4 Months * Billing Information: * Visit Code: 52704 Office Visit, Est Pt., Level 4. * Procedure Codes: G2211 Complex e/[place]. [address] GLUCOSE TEST. 30570 GLYCATED HEMOGLOBIN TEST. Modifiers: QW 64124 CBC WITH AUTO DIFF. 3051F HG A1C>EQUAL 7.0%<8.0%. G8752 MOST RECENT SYSTOLIC BP < 140MM HG. G8754 MOST RECENT DIASTOLIC BP < 90MM HG. * Electronic signature of Carol Garcia MD on 01/18/2025 at 09:19 AM EDT Sign off status: Pending * Provider: Damion Garcia M.D. Date: 0 10/21/2024 Generated for Alexander camp/Vamsi/Josemanuelsmitting on: 0 01/18/2025 09:19 AM EDT History and Physical Notes * HPI (History of Present Illness) Category Sub-Category Detail Notes Category Not es Endocrinology Recent Blood Sugars Pt here to f/u on DM 2 Examination Category Sub-Category Detail Notes Category Not es General Examination Heart: RSR Lungs: clear to auscultatio n General Appearance: NAD
--- NOTE | 2025-01-18 09:00 | US_ITS ---
FINAL REPORT CLINICAL HISTORY: claudication, HTN, CAD, AFIB, PAD, TIA, CVA, DM, FINDINGS: ANKLE-BRACHIAL PRESSURE INDICES Pressure indices are as follows: RIGHT LOWER EXTREMITY: Ankle-brachial pressure index: 1.1 Comments: Normal LEFT LOWER EXTREMITY: Ankle-brachial pressure index: 1.3 Comments: Normal IMPRESSION: No evidence of significant obstructive peripheral vascular disease of the lower extremities Reviewed, Interpreted and Dictated by Trell Isabel MD Transcribed by Janel Davis Authenticated and [facility]
--- OUTSIDE RECORDS SUMMARY | 2025-01-18 09:19 | XMS_ITS | Patient Health Record ---
[facility] [address] [facility] [address] [place] [id number] Care Team Providers Care Neuropsychology Division Chief Name Role Phone Cosme Garcia Primary Care Provider Allergies No Known Allergies Results Component Value Reference Range Notes P-Iron Reviewed date:10/24/2024 12:19:30 PM Interpretation:Normal Performing Lab: Notes/Report: Test performed by [facility] [address] [place], [place] [address] , [address], [place] [address] Andrea Flores MD, Director Medical Surgical CLIA: [id number] Iron 42 37-145 ug/dL P-T4 Free (thyroxine) Reviewed date:10/24/2024 12:19:30 PM Interpretation:Normal Performing Lab: Notes/Report: Test performed by [facility] [address] [place] [address] , [address], [place] [address] Andrea Flores MD, Director Medical Surgical CLIA: [id number] Thyroxine Free (free T4) 1.66 0.86-1.76 ng/dL P-Comprehensive Metabolic Pa luis (CMP) Reviewed date:10/24/2024 12:19:30 PM Interpretation:glu 111, BUN 27, Creat 1.20, GFR 47 Performing Lab: Notes/Report: Test performed by [facility] [address] [place] [address] , [address], [place] [address] Andrea Flores MD, Director Medical Surgical CLIA: [id number] Sodium 144 135-145 mmol/L Potassium 4.4 3.5-5.3 [...] 0.4 <0.2-1.2 mg/dL A/G Ratio 1.3 1.1-2.5 Glycohemoglobin A1c (in hous e) Reviewed date:10/24/2024 12:19:30 PM Interpretation:7.3% Performing Lab: Notes/Report: 7.3% glycohemoglobin 7.3% 5 - 6.5 % CBC Venipuncture (in house) Reviewed date:10/24/2024 12:19:30 [...] - 38 platlet 333 100 - 400 Glucose (In-House) Reviewed date:10/24/2024 12:19:30 PM Interpretation:140 Performing Lab: Notes/Report: 140 blood glucose 140 74 - 106 mg/dL P-Reticulocyte Count Reviewed date:07/22/2024 10:58:36 AM Interpretation:2.2 Performing Lab: Notes/Report: Test performed by [facility] [address] [place], [place] [address] [address], [place] [address] Andrea Flores MD, Director Medical Surgical CLIA: [id number] Reticulocyte Count 2.2 0.5-2.1 % P-Iron with Transferrin Satu ration Reviewed date:07/22/2024 10:58:35 AM Interpretation:Normal Performing Lab: Notes/Report: Test performed by [facility] [address] [place] [address] , [address], [place] [address] Andrea Flores MD, Director Medical Surgical CLIA: [id number] Iron 65 37-145 ug/dL Transferrin 244 200-360 mg/dL Transferrin Saturation Percentage 19 15-50 % P-Comprehensive Metabolic Pa luis (CMP) Reviewed date:07/22/2024 10:58:36 AM Interpretation:gluc 249, bun 25, Cr 1.23, gfr 46 Performing Lab: Notes/Report: Test performed by [facility] [address] [place] [address] , [address], [place] [address] Andrea Flores MD, Director Medical Surgical CLIA: [id number] Sodium 139 135-145 mmol/L Potassium 4.5 3.5-5.3 mmol/L Chloride 101 97-108 mmol/L CO2 23 22-32 mmol/L Glucose 249 65-99 mg/dL BUN 25 8-23 mg/dL Creatinine 1.23 0.50-1.00 mg/dL Calcium 9.6 8.6-10.4 mg/dL eGFR by Creatinine 46 >59 mL/min/1.73m2 Protein 7.5 6.0-8.3 g/dL Albumin 4.3 3.5-5.3 g/dL Alkaline Phosphatase 110 35-121 IU/L ALT (SGPT) 11 <5-47 IU/L AST (SGOT) 17 <5-40 IU/L Bilirubin, Total 0.3 <0.2-1.2 mg/dL A/G Ratio 1.3 1.1-2.5 CBC Venipuncture (in house) Reviewed date:07/26/2024 03:18:46 PM Interpretation: Performing Lab: Notes/Report: P-Phosphorus Reviewed date:10/24/2024 12:19:30 PM Interpretation:Normal Performing Lab: Notes/Report: Test performed by [facility] [address] [place] [address] , [address], [place] [address] Andrea Flores MD, Director Medical Surgical CLIA: [id number] Phosphorus 4.2 2.5-4.5 mg/dL P-TSH Reviewed date:10/24/2024 12:19:30 PM Interpretation:7.02 Performing Lab: Notes/Report: Test performed by [facility] [address] [place] [address] , [address], [place] [address] Andrea Flores MD, Director Medical Surgical CLIA: [id number] TSH 7.02 0.43-5.25 mU/L P-Microalbumin/Creatinine, R andom Urine Sample Reviewed date:10/24/2024 12:19:30 PM Interpretation:Album/Creat 65 Performing Lab: Notes/Report: Test performed by [facility] [address] [facility] , [address], [place] [address] Andrea Flores MD, Director Medical Surgical CLIA: [id number] Albumin/Creatinine Ratio, Urine 65 0-30 ug/mg Microalbumin, Urine, Random 3.5 Creatinine, Urine 54.1 P-Troponin I Reviewed date:06/24/2024 08:24:15 AM Interpretation: Performing Lab: Notes/Report: CBC Fingerstick (in house) Reviewed date:06/22/2024 12:45:53 PM Interpretation: Performing Lab: Notes/Report: wbc 9.2 3.5 - 10 lym 17.4% 15 - 50 mid 5.2% 2 - 15 gran 77.4% 35 - 80 rbc 4.03 3.5 - 5.5 hgb 12.8 11.5 - 16.5 hct 39.4 35 - 55 mcv 97.6 75 - 100 mch 31.7 25 - 35 mchc 32.4 31 - 38 plat 314 100 - 400 Glucose (In-House) Reviewed date:06/22/2024 12:45:45 PM Interpretation: Performing Lab: Notes/Report: blood glucose 327 74 - 106 mg/dL Urinalysis - Inhouse Reviewed date:06/22/2024 12:45:35 PM Interpretation: Performing Lab: Notes/Report: Color/Clarity yellow/cloudy Leuk Trace Nitrite Pos Urobili 3.2 Protein 3+ pH 5.5 Blood 2+ Sp. Gr. >1.030 Ketone Trace Bili 1+ Gluc 1+ Glycohemoglobin A1c (in hous e) Reviewed date:06/22/2024 12:46:05 PM Interpretation: Performing Lab: Notes/Report: glycohemoglobin 8.3% 5 - 6.5 % P-Amylase Reviewed date:06/24/2024 08:26:05 AM Interpretation:26 Performing Lab: Notes/Report: Test performed by [facility], [address] , [address], [place] [address] Andrea Flores MD, Director Medical Surgical CLIA: [id number] Amylase 26 28-100 U/L P-Comprehensive Metabolic Pa luis (CMP) Reviewed date:06/24/2024 08:26:05 AM Interpretation:gluc 264, Cr 1.58, gfr 34 Performing Lab: Notes/Report: Test performed by [facility] [address] , [address], [place] [id number] Andrea Flores MD, Director Medical Surgical CLIA: [id number] Sodium 140 135-145 mmol/L Potassium 4.6 3.5-5.3 mmol/L Chloride 103 97-108 mmol/L CO2 24 22-32 mmol/L Glucose 264 65-99 mg/dL BUN 21 8-23 mg/dL Creatinine 1.58 0.50-1.00 mg/dL Calcium 8.9 8.6-10.4 mg/dL eGFR by Creatinine 34 >59 mL/min/1.73m2 Protein 7.1 6.0-8.3 g/dL Albumin 4.1 3.5-5.3 g/dL Alkaline Phosphatase 99 35-121 IU/L ALT (SGPT) 19 <5-47 IU/L AST (SGOT) 20 <5-40 IU/L Bilirubin, Total 0.4 <0.2-1.2 mg/dL A/G Ratio 1.4 1.1-2.5 P-Culture, Urine Reviewed date:06/27/2024 03:25:07 PM Interpretation:sensitive Performing Lab: Notes/Report: Test performed by [facility] [address] , [address], [place] [address] Andrea Flores MD, Director Medical Surgical CLIA: [id number] Specimen Source Urine - Void Culture, Urine See Below See Microbiol ogy Report Escherichia coli 50,000-100,000 CFU/m l Escherichia coli Sensitivity Panel See Below Organism E. coli Antibiotic INTERP Amikacin S Ampicillin S Aztreonam S Cefepime S Cefoxitin S Ceftazidime S Ceftriaxone S Cefuroxime S Ciprofloxacin R Ertapenem S Gentamicin S Imipenem S Levofloxacin R Meropenem S Nitrofurantoin S Piperacillin/Tazo S Tetracycline S Tobramycin S Trimeth/Sulfa S S=SUSCEPTIBLE I=INTERMEDIATE R=RESISTANT P-Lipase Reviewed date:06/24/2024 08:26:05 AM Interpretation:9.9 Performing Lab: Notes/Report: Test performed by [facility] [address] [place] [address] , [place] [address] Andrea Flores MD, Director Medical Surgical CLIA: [id number] Lipase 9.9 13.0-60.0 u/L P-TSH reflex to FT4 Reviewed date:06/24/2024 08:26:05 AM Interpretation:95.3 Performing Lab: Notes/Report: Test performed by [facility] [address] [place] [address] , [address], [place] [address] Andrea Flores MD, Director Medical Surgical CLIA: [id number] TSH reflex to FT4 95.30 0.43-5.25 mU/L H-BMP Reviewed date:07/18/2024 09:06:15 AM Interpretation: Performing Lab: Notes/Report: NA 140 136-145 mmol/L K 4.3 3.5-5.1 mmoL/L CL 114 98-107 mmol/L CO2 19 22.0-30.0 mmol/L GAP 11.3 5-15 mEq/L BUN 18 7-17 mg/dl Delta: 43 on 07/14/24 CREATT 1.20 0.52-1.04 mg/dl Delta: 1.70 on 07/14/24 CRCLE 49 50-200 mL/min GFRAA 53 >60 ML/MIN Delta: 35 on 07/14/24 EGFR 44 >60 ml/min GLU 95 74-100 mg/dl CA 8.2 8.4-10.2 mg/dl H-CBC Reviewed date:07/18/2024 09:06:15 AM Interpretation: Performing Lab: Notes/Report: WBC 7.7 4.8-10.8 K/mm3 RBC 3.56 4.20-5.40 M/mm3 HGB 11.6 12.2-16.2 g/dL HCT 34.3 37.0-47.0 % MCV 96.3 81-99 fl MCH 32.5 27.0-31.2 pg MCHC 33.8 31.8-35.4 g/dL RDW 14.4 11.5-17.5 % PLT 256 142-424 K/mm3 MPV 7.9 7.4-10.4 fl NE% 55.9 37.0-80.0 % LY% 23.8 10-50 % MO% 4.5 1.7-9.3 % EO% 15.1 0.1-12.0 % BA% 0.7 0.1-2.0 % NE# 4.3 1.8-7.8 K/mm3 LY# 1.8 0.7-4.5 K/mm3 MO# 0.3 0.1-1.0 K/mm3 EO# 1.2 0.0-0.4 K/mm3 BA# 0.1 0-0.2 K/mm3 P-Lipid Panel Reviewed date:10/24/2024 12:19:30 PM Interpretation:Normal Performing Lab: Notes/Report: Test performed by [facility] [address] [place] [address] , [address], [place] [address] Andrea Flores MD, Director Medical Surgical CLIA: [id number] Cholesterol 167 <200 mg/dL Triglycerides 108 <150 [...] Results: 89 Units: mg/dL % Change: +32% Urinalysis - Inhouse Reviewed date:04/20/2024 12:19:49 PM Interpretation: Performing Lab: Notes/Report: Color/Clarity yellow/clear Leuk neg Nitrite neg Urobili 3.2 Protein neg pH 5.5 Blood neg Sp. Gr. 1.020 Ketone neg Bili neg Gluc 2+ P-T4 Free (thyroxine) Reviewed date:06/24/2024 08:26:05 AM Interpretation:0.52 Performing Lab: Notes/Report: Test performed by [facility] [address] [place] [address] , [address], [place] [address] Andrea Flores MD, Director Medical Surgical CLIA: [id number] Thyroxine Free (free T4) 0.52 0.86-1.76 ng/dL J-Dgnqvtid-F Reviewed date:06/24/2024 08:26:05 AM Interpretation:24 Performing Lab: Notes/Report: Test performed by [facility] [address] [place] [address] , [address] , [place] [address] Andrea Flores MD, Director Medical Surgical CLIA: [id number] Troponin-T 24 <6-18 ng/L Patients who are prescribed biotin may exhibit elevated troponin results. Please interpret results accordingly. H-Glycohemoglobin A1C Reviewed date:07/15/2024 10:22:34 AM Interpretation:8.2 Performing Lab: Notes/Report: HGBA1C 8.2 4.0-6.0 % < 6% Non-Diabetic Level < 7% Controlled Diabetic Level > 8% Poorly Controlled Diabetic Level H-TSH Reviewed date:07/15/2024 10:22:34 AM Interpretation:79.3 Performing Lab: Notes/Report: TSH 79.30 0.465-4.68 uIU/mL Reason For Referral No Information Medications Medication SIG (Take, Route, Frequency, Duration) Notes Start Date End Date Status Lantus SoloStar 100 UNIT/ML INJECT 40 TO 50 UNITS SUBCUTANEOUSLY TWO TIMES A DAY for 30 Active Feosol Bifera 28 MG 1 tablet Orally Once a day for 90 days 10/31/2024 Active Jardiance 25 MG 1 tab(s) orally once a day (in the morning) Active BD Pen Needle Short U/F 31 GUAGE X 5/16 INCH 1 PEN NEEDLE ONCE A DAY for 90 DAYS 03/08/2020 Active BD PEN NEEDLE 29G X3/16 (AUTOSHIELD) 1 SUBCUTANEOUSLY QID for 90 DAYS 03/19/2021 Active NovoLOG 100 UNIT/ML SLIDING SCALE BEFORE MEALS UNDER THE SKIN DIRECTED (MAX DAILY DOSE IS 75 UNITS) Active Atorvastatin Calcium 80 MG 1 tab(s) oral ly once a day (at bedtime) Active Metoprolol Tartrate 25 MG 1/2 tablet Ora lly Twice a day Active Lisinopril 10 MG 1 tab(s) orally once a day Active FreeStyle Jg 3 Plus Sensor - as directed 07/21/2024 Active metFORMIN HCl 1000 MG 1 tab(s) orally 2 times a day Active Accu-Chek Amanda Plus w/Device as directed 12/04/2023 Active Albuterol Sulfate HFA 108 (90 Base) MCG/ACT 1 puff as needed Inhalation every 4 hrs, prn 11/18/2023 Active Levothyroxine Sodium 100 MCG TAKE 1 TABLET BY MOUTH ONCE DAILY IN THE MORNING ON AN EMPTY STOMACH for 30 Activ e Accu-Chek Amanda Plus - 1 strip(s) finger stick 2 times a day or as directed for 90 days Active oxyBUTYnin Chloride ER 5 MG 1 tablet Orally Once a day for 90 days Active Pantoprazole Sodium 40 MG TAKE 1 TABLET BY MOUTH ONCE DAILY for 30 Active Ondansetron 4 MG 1 tablet on the tong ue and allow to dissolve Orally three times a day as needed Active BD Swab Single Use Regular - [...] a day A ctive FreeStyle Jg 3 [place] - as directed 08/19/2024 Active Eliquis 5 MG 1 tablet Orally Twic e a day for 90 days Active FreeStyle Jg 3 Plus Sensor - Apply one sensor every 14 days for 28 days 08/16/2024 Active Famotidine 20 MG TAKE 1 TABLET BY EMMA TWICE DAILY for 30 Active Immunizations Vaccine Route Administration Date Status Comme nts xFluzone Intradermal (18-64yrs)-trivalent IM Intramuscular 06/01/2013 Administered xFluzone (6mos and older)-trivalent IM Intramuscular 06/20/2011 Administered xFluzone (6mos and older)-trivalent IM Intramuscular 05/24/2012 Administered xFlu shot-36 months and older IM Intramuscular 07/26/2010 Administered Tetanus Tdap-Adacel (over 7yrs) IM Intramuscular 11/29/2013 Administered Tetanus Tdap-Adacel (over 7yrs) Unknown 09/25/2023 Administered Prevnar (PCV20) IM Intramuscular 08/21/2022 Administered Prevnar (PCV13) IM Intramuscular 09/18/2014 Administered ppd ID Intradermal 07/07/2016 Administered ppd ID Intradermal 06/29/2017 Administered PNEUMOVAX 23 VACCINE IM Intramuscular 09/30/2016 Administe red Fluzone High Dose (65yr and older) IM Intramuscular 06/29/2017 Administered Fluzone High Dose (65yr and older) IM Intramuscular 07/08/2018 Administered Fluzone High Dose (65yr and older) IM Intramuscular 05/10/2019 Administered Fluzone High Dose (65yr and older) IM Intramuscular 06/14/2020 Administered Fluzone High Dose (65yr and older) IM Intramuscular 08/21/2022 Administered Problems Problem Type SNOMED Code ICD Code Onset Dates Problem Status W/U Status Risk Notes Problem 08771909 Essential (primary) hypertension (I10) Active confirmed Problem 50433418 Hyperkalemia (E87.5) Active confirmed Problem 57049460 Essential hypertension (I10) Active confirmed Problem 122008534 BMI 30.0-30.9,adult (Z68.30) Active confirmed Problem 527237172 OAB (overactive bladder) (N32.81) Active confirmed Problem 909112529900942 Type 2 diabetes mellitus with hypoglycemia without coma (E11.649) Active confirmed Problem 469048954 Mixed hyperlipidemia (E78.2) Active confirmed Problem 80082405 Chronic pulmonar y edema (J81.1) Active confirmed Problem 584021060 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.4) Active confirmed Problem 59514556 Type 2 diabetes mellitus without complication (E11.9) Active confirmed Problem 297656957 Acquired hypothyroidism (E03.9) Active confirmed Problem 760277589 Non morbid obesi ty due to excess calories (E66.09) Active confirmed Problem 70810771 Coronary artery disease involving [place] coronary artery of [place] heart without angina pectoris (I25.10) Active confirmed Problem 137684583 Anemia, unspecified type (D64.9) Active confirmed Problem 896732470 PAF (paroxysmal atrial fibrillation) (I48.0) Active confirmed Problem 35265328 Hyperlipidemia, unspecified hyperlipidemia type (E78.5) Active confirmed Problem 465794475800418 Atrial fibrillation with RVR (I48.91) Active confirmed Problem 846347571 Frequent falls (R29.6) Active confirmed Problem 748812492 TIA (transient ischemic attack) (G45.9) Active confirmed Problem 976343216 PAD (peripheral artery disease) (I73.9) Active confirmed Problem 594754137 Atherosclerosis of [place] coronary artery without angina pectoris, unspecified whether [place] or transplanted heart (I25.10) Active confirmed Problem 364542546 Bilateral caroti d artery stenosis (I65.23) Active confirmed Problem 98934853 Stenosis of carotid artery, unspecified laterality (I65.29) Active confirmed Problem 332215543 Non morbid obesi ty (E66.9) Active confirmed Problem 093307739 S/P coronary artery stent placement (Z95.5) Active confirmed Problem 740269202 Type 2 diabetes mellitus without complication, unspecified whether manager intermediate insulin use (E11.9) Active confirmed Problem 003309308 Uncontrolled typ e 2 diabetes mellitus with hyperglycemia (E11.65) Active confirmed Problem 042976041 Bilateral caroti d artery disease, unspecified type (I77.9) Active confirmed Problem 379345115 Carotid artery disease, unspecified laterality, unspecified type (I77.9) Active confirmed Problem 714599007 Stage 3a chronic kidney disease (N18.31) Active confirmed Problem 510652872 Urinary incontinence in female (R32) Active confirmed Vital Signs Heart Rate 79 /min 10/21/2024 Blood pressure diastolic 72 mm Hg 10/21/2024 Height 63 in 10/21/2024 Blood pressure systolic 122 mm Hg 10/21/2024 Weight 171.6 lbs 10/21/2024 BMI 30.39 kg/m2 10/21/2024 Encounters Encounter Location Date Provider Diagnosis [facility] [address] [place], [place] [id number] 04/20/2024 Cosme Otis OAB (overactive blad rocio) N32.81 [facility] [address] [place], [place] [id number] 06/22/2024 Cosme Otis Nausea and vomiting, unspecified vomiting type R11.2 ; Intermittent diarrhea R19.7 ; Urinary incontinence in female R32 ; Periumbilical pain R10.33 ; Type 2 diabetes mellitus without complication E11.9 and Acute UTI N39.0 [facility] [address] [place], [place] [id number] 07/21/2024 Cosme Otis Nausea and vomiting, unspecified vomiting type R11.2 ; Anemia, unspecified type D64.9 ; Type 2 diabetes mellitus with hypoglycemia without coma E11.649 and keno terminal operator (current) use of insulin Z79.4 [facility] [address] [place], [place] [id number] 08/31/2024 Cosme Otis Open wound of right heel, initial encounter S91.301A [facility] [address] [place], [place] [id number] 10/21/2024 Cosme Otis Type 2 diabetes darren itus without complication E11.9 ; Essential hypertension I10 ; Stage 3a chronic kidney disease N18.31 ; Anemia, unspecified type D64.9 ; Acquired hypothyroidism E03.9 and Hyperlipidemia, unspecified hyperlipidemia type E78.5 [facility] [address] [place], [place] [id number] 06/24/2024 Cosme Otis [facility] [address] [place] [id number] 06/29/2024 Cosme Otis [facility] [address] [place] [id number] 07/22/2024 Cosme Otis [facility] [address] [place] [id number] 08/04/2024 Cosme Otis [facility] [address] [place] [id number] 08/16/2024 Cosme Otis [facility] [address] [place] [id number] 08/19/2024 Cosme Otis [facility] [address] [place] [id number] 08/19/2024 Cosme Otis [facility] [address] [place] [id number] 08/25/2024 Cosme Otis [facility] [address] [place] [id number] 09/08/2024 Cosme Otis [facility] [address] [place] [id number] 09/08/2024 Cosme Otis Type 2 diabetes darren itus with hypoglycemia without coma E11.649 [facility] [address] [place] [id number] 10/07/2024 Cosme Otis [facility] [address] [place] [id number] 10/24/2024 Cosme Otis Assessments Encounter Date Diagnosis (ICD Code) Assessment Notes Treatment Notes Treatment Clinical Notes Section Notes 04/20/2024 OAB (overactive bladder) (ICD-10 - N32.81) 08/31/2024 Open wound of right heel, initial encounter (ICD-10 - S91.301A) 09/08/2024 Type 2 diabetes mellitus with hypoglycemia without coma (ICD-10 - E11.649) 10/21/2024 Essential hypertension (ICD-10 - I10) 10/21/2024 Type 2 diabetes mellitus without complication (ICD-10 - E11.9) 06/22/2024 Intermittent diarrhea (ICD-10 - R19.7) 06/22/2024 Nausea and vomiting, unspecified vomiting type (ICD-10 - R11.2) 07/21/2024 Anemia, unspecified type (ICD-10 - D64.9) Patient may need to have an iron infusion 07/21/2024 Nausea and vomiting, unspecified vomiting type (ICD-10 - R11.2) 10/21/2024 Stage 3a chronic kidney disease (ICD-10 - N18.31) 07/21/2024 Type 2 diabetes mellitus with hypoglycemia without coma (ICD-10 - E11.649) 06/22/2024 Urinary incontinence in female (ICD-10 - R32) 06/22/2024 Periumbilical pain (ICD-10 - R10.33) 10/21/2024 Anemia, unspecified type (ICD-10 - D64.9) 07/21/2024 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 terminal 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 (current) use of insulin (ICD-10 - Z79.4) 10/21/2024 Acquired hypothyroidism (ICD-10 - E03.9) 06/22/2024 Type 2 diabetes mellitus without complication (ICD-10 - E11.9) 06/22/2024 Acute UTI (ICD-10 - N39.0) 10/21/2024 Hyperlipidemia, unspecified hyperlipidemia type (ICD-10 - E78.5) Plan Of Treatment Pending Test Test Name Order Date Cologuard 12/18/2021 Next Appt Details Provider Name:Cosme Amos ry, 02/20/2025 01:30:00 PM, [address] [facility], [address], [place], [place], [id number], Insurance Providers Payer Name Payer Address Payer Phone Subscriber Number Group Number Insured Name Patient Relationship to Insured Coverage Start Date Coverage End Date [employer] (MEDICAR E) [address] [address] [place] [address] [id number] Yesi Fernandez Self - patient is the insured Medical (General) History Medical History History ICD Code Type 2 Diabetes, Dx: 1979 Hypertension Hyperlipidemia TIA Carotid Stenosis, Dx: 2020 Surgical History Surgery Date(Month/Year) [facility] - TCAR (TransCarotid Artery Revascula rization) right side 03/06/2021 [facility] - TCAR, left side 10/22/2021 Hospitalization History Reason Date(Month/Year) Gallbladder 1988 Blood Pressure, Nausea 09/09-09/10/2010 Carotid Stenosis 01/02- TIA 01/01-01/03/21 Rt Carotid Stenosis and TCAR- [facility] 03/06-
--- OUTSIDE RECORDS SUMMARY | 2025-01-18 09:20 | XMS_ITS | Clinical Summary ---
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 1 Active glipiZIDE XL (Glucotrol XL) 10 MG 24 hr tablet 2 tablets 1 (one) time each day. 1 Active aspirin 81 MG EC tablet Take 81 mg by mouth 1 (one) time each day. Active Cholecalciferol 50 MCG (1999 UT) chewable tablet Chew 3 tablets 1 (one) time each day. Active Cyanocobalamin (VITAMIN B 12 PO) Take 2 tablets by mouth 1 (one) time each day. Uses gummies Active insulin detemir (Levemir) 100 UNIT/ML injectionIndica tions:Type 2 Diabetes Mellitus Inject 40 Units under the skin 2 (two) times a day. Active insulin lispro (HumaLOG) 100 UNIT/ML injectionIndica tions:Type 2 Diabetes Mellitus Inject under the skin 3 (three) times a day with meals. Sliding scale patient is on high dose scale at home Active atorvastatin (Lipitor) 80 MG tablet Take 1 tablet (80 mg total) by mouth every night. 30 tablet 11 1 Active ascorbic acid (vitamin C) 100 MG tablet Take 100 mg by mouth 1 (one) time each day. Active zinc sulfate (Zincate) 220 (50 Zn) MG capsule Take 220 mg by mouth 1 (one) time each day. Active lisinopril 10 MG tablet Take 1 tablet (10 mg total) by mouth 1 (one) time each day. Resume home lisinopril when OFF midodrine for 24 hours and blood pressure is more than 120. DO NOT TAKE LISINOPRIL WITH MIDODRINE. 10 tablet 2 Active tamsulosin (Flomax) 0.4 MG 24 hr capsule Take 1 capsule (0.4 mg total) by mouth 1 (one) time each day. Medication for urinary retention 30 capsule 1 2 Active midodrine (Proamatine) 5 MG tablet Take 1 tablet (5 mg total) by mouth 3 (three) times a day. Take this medication if your blood pressure is less than 110. Stop taking this medication if your blood pressure is more than 140.DO NOT TAKE MIDODRINE AND LISINOPRIL AT THE SAME TIME 90 tablet 3 2 Active Ozempic, 0.25 or 0.5 MG/DOSE, 2 MG/1.5ML solution pen-injector inj. pen 2 Active Active Problems Problem Noted Date Diagnosed Date Acid indigestion 10/24/2021 Overview (10/24/2021): Discharge home on protonix 40 mg BID Follow up with PCP Urinary retention 10/23/2021 Overview (10/24/2021): -Required I/O cath postoperatively x 3 Resolved 10/23 Discharge home on Flomax Follow up with PCP for urinary retention Respiratory insufficiency 10/23/2021 Overview (10/24/2021): On 2LNC postop On room air this am, Sats 97% Encourage OOB, ambulation, incentive spirometry q1h while awake Vitamin B 12 deficiency 10/22/2021 Overview (10/22/2021): Continue home cyanocobalamin 250 mcg daily. Vitamin D deficiency 10/22/2021 Overview (10/22/2021): Continue home cholecalciferol 2,000 units daily. Zinc deficiency 10/22/2021 Overview (10/22/2021): Continue home zinc sulfate 220 mg daily. Vitamin C deficiency 10/22/2021 Overview (10/22/2021): Continue home ascorbic acid 100 mg daily. Antiplatelet or antithrombotic long-term use Overview (03/07/2021): Continue aspirin and plavix per home routine. Asymptomatic bilateral carotid artery stenosis 0 02/12/2021 Overview (10/24/2021): S/p right TCAR on 03/06/21 (Dr. Saleh) S/P left TCAR on 10/22/2021 (Dr. Saleh) Continue home aspirin, plavix, and atorvastatin. Postop close assessment of blood pressure with goal SBP 100-140 Discharging home on midodrine with instructions to take if SBP less than 110 and hold if SBP more than 140 Holding home lisinopril with instructions to resume when off midodrine for 24 hours and when SBP > 120 Instructed to specifically not take both midodrine and lisinopril. Right groin access, left neck incision MAKE UP GIRL, WNL No heavy lifting (greater than 5 pounds) for four weeks post op. Patient encouraged to increase activity as tolerated Patient will follow up with vascular surgery in four weeks with bilateral carotid duplex. TIA (transient ischemic attack) 01/29/2021 Overview (10/22/2021): History of bilateral carotid stenosis, S/P bilateral TCAR. Obesity (BMI 30.0-34.9) 01/24/2021 Overview (10/22/2021): BMI 31.89 Complicates all aspects of care. High cholesterol 01/23/2021 Overview (10/22/2021): Continue home atorvastatin 80 mg daily. HTN (hypertension) Overview (10/24/2021): Hold home Lisinopril 10 mg daily at discharge Patient requiring midodrine postoperatively. Holding home lisinopril with instructions to resume when off midodrine for 24 hours and when SBP > 120. Instructed to specifically not take both midodrine and lisinopril. Type II diabetes mellitus Overview (10/24/2021): Most recent A1c 11.0 (01/28) Resume home oral antidiabetics Glipizide XL 10 mg daily, Metformin 1000 mg BID. Resume home insulin dose: detemir 40units BID Continue FSBS per ICU: AC/HS Continue diabetic diet. Follow up with PCP for diabetes medication management Resolved Problems Problem Noted Date Diagnosed Date Resolved Date Difficulty in swallowing 03/07/2021 Overview (03/07/2021): Will consult speech therapy for evaluation. Symptomatic carotid artery stenosis, right 03/06/2021 03/07/2021 Fair tolerance for activity 03/04/2021 03/07/2021 Overview (03/07/2021): Encourage out of bed to chair. PT/OT assessment as appropriate. Bilateral carotid artery disease 01/23/2021 03/07/2021 Stroke 03/07/2021 Overview (03/07/2021): H/o TIA. Continue aspirin, plavix, and statin. Family History Medical History Relation Name Comments Diabetes Daughter 1 Lacie Diabetes Daughter 2 ZAHRAA Heart disease Daughter 2 ZAHRAA Stroke Daughter 2 ZAHRAA Coronary artery disease Father Coronary artery disease Mother Anesthesia problems Neg Hx Malig Hyperthermia Neg Hx Relation Name Status Comments Daughter 1 Lacie Daughter 2 ZAHRAA Father Mother Social History Tobacco Use Types Packs/Day Years Used Date Smoking Tobacco: Never Smokeless Tobacco: Never Tobacco Cessation:Counseling Given: Not Answered Alcohol Use Standard Drinks/Week Comments Never 0 (1 standard drink = 0.6 oz pur e alcohol) PHQ-2 Answer Date Recorded Patient Health Questionnaire-2 Score 0 06/10/2021 Comments No Sex and Gender Information Value Date Recorded Sex Assigned at Not on file Legal Sex Female 11:54 AM EDT Gender Identity Not on file Sexual Orientation Not on file Occupation Industry Job Start Date Job End Date retired Not on file Not on file Not on file Last Filed Vital Signs Vital Sign Reading Time Taken Comments Blood Pressure 114/76 03/17/2022 1:06 PM EDT Pulse 87 03/17/2022 1:06 PM EDT Temperature 36.3 C (97.3 F) 03/17/2022 1:05 PM EDT Respiratory Rate 11 10/24/2021 1:00 PM EDT Oxygen Saturation 95% 10/24/2021 1:00 PM EDT Inhaled Oxygen Concentration - - Weight 70.8 kg (156 lb 1.4 oz) 03/17/2022 1:05 P M EDT Height 160 cm (5' 3 ) 03/17/2022 1:05 PM EDT Body Mass Index 27.65 03/17/2022 1:05 PM EDT Plan of Treatment Health Maintenance Due Date Last Done Comments [facility]-Bone Density Scan 1949 [facility]-Medicare Annual Wellness (AWV) 1950 [facility]-/Child/Adol SDOH Screenings 1949 [facility]-Obesity Intervention 1955 Diabetes: Dental Exam 1959 [facility]- SDOH Screenings 1967 [facility]-Adult SDOH Screenings 1967 [facility]-DTaP,Tdap,and Td Vaccine s (1 - Tdap) 1968 CT Colonography 1994 Colonoscopy 1994 FIT-DNA 1994 FIT 1994 FOBT 1994 Sigmoidoscopy 1994 [facility]-Colorectal Cancer Screening 1994 [facility]-Zoster Vaccines (1 of 2) 1999 [facility]-Diabetes: Hemoglobin A1C 07/25/2021 01/25/2021 [facility]-Depression Screening 06/10/2022 06/10/2021 [id number] Vaccine (1 - 20 24-25 season) 2024 [facility]-RSV Vaccine: 60+ Years o r (1 - 1-dose 75+ series) 2024 [facility]-Influenza Vaccine (Seaso n Ended) 2025 [facility]-Hepatitis C Screening Completed 01/25/2021 [facility]-Pneumococcal Vaccine: 50 + Years Completed 08/21/2022 HPV Vaccines Aged Out No longer eligi ble based on patient's age to complete this topic [facility]-HIB Vaccines Aged Out No longer e ligible based on patient's age to complete this topic [facility]-Hepatitis A Vaccines Aged Out No longer eligible based on patient's age to complete this topic [facility]-IPV Vaccines Aged Out No longer e ligible based on patient's age to complete this topic [facility]-Rotavirus Vaccines Aged Out No lo nger eligible based on patient's age to complete this topic Medical Devices Implanted Type Area Commercial Internship Device Identifier Shelf Expiration Date Model / Serial / Lot Stent Transcarotid System 9mm X 30mm - [id number] Implanted:Qty: 1 on 03/06/2021 by Leo Saleh MD at [id number] 03/09/2023 SR-0930-C S / / [id number] Stent Transcarotid System 8mm X 30mm - [id number] Implanted:Qty: 1 on 10/22/2021 by Leo Saleh MD at [facility] Left: Carotid [id number] 02/07/2024 SR-0830-C S / / [id number] Procedures Procedure Name Priority Date/Time Associated Diagnosis Comments HEMOGLOBIN A1C Routine 01/25/2021 10:51 PM EDT HEPATITIS C ANTIBODY - ED W/REFLEX TO HCV QUANT PCR STAT 01/25/2021 2:56 PM EDT from Last 3 Months or Most Recently Relevant to Health Maintenance Results * (ABNORMAL) Hemoglobin A1c (01/25/2021 10:51 PM EDT) Hemoglobin A1c 11.0(H) <5.7 % 01/25/2021 11:36 PM EDT [facility] Blood Venous blood specimen / Unknown Venipuncture / Unknown 01/25/2021 10:51 PM EDT 01/25/2021 11:01 PM EDT Narrative [facility] - 01/25/2021 11:36 PM EDT HA1C Interpretive Data: Diagnosis of Diabetes: Diabetic > or = 6.5% Pre-diabetic 5.7 to 6.4% Non-diabetic < or = 5.6% Glycemic Targets for Type I and Type II Diabetics: Non- Adults <7.0% Adults <6.0% Children and Adolescents <7.5% Source: [place] [employer]. Standards of medical care in diabetes,2017. Diabetes Care.2017:40 (suppl 1):S1-S135. HbA1c assay performed by an ion-exchange chromatography method that is certified traceable to the DCCT. Bob Brown MD LAB BLOOD ORDERABLES Final Re sult Performing Organization Address City/[facility]/ZIP Co de Phone Number [facility] [address] [place] [address] * [place] Hepatitis C Antibody (01/25/2021 2:56 PM EDT) [facility] Hepatitis C Antibody Negative Negative 01/25/2021 5:15 PM EDT [facility] Blood Venous blood specimen / Unknown Venipuncture / Unknown 01/25/2021 2:56 PM EDT 01/25/2021 3:04 PM EDT Bob Brown MD LAB BLOOD ORDERABLES Final Re sult Performing Organization Address City/[facility]/ZIP Co de Phone Number [facility] [address] [place] [address] from Last 3 Months or Most Recently Relevant to Health Maintenance Insurance [facility] MEDICARE Advance Directives Documents on File Type Date 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 Yes Care Teams Sugar Grinder Relationship Specialty Start Date End Date Cosme Garcia MD [address] [place] [address] PCP - General 01/24/21
--- NOTE | 2025-01-18 10:03 | XR_ITS ---
FINAL REPORT TECHNIQUE: Chest PA & Lateral CLINICAL HISTORY: Shortness of breath COMPARISON: 07/14/2024 FINDINGS: 2 views of the chest were performed. The heart size is normal. The mediastinum is within normal limits. There is no acute cardiopulmonary process. There are no pleural effusions. There is no pneumothorax. The bony thorax appears intact. IMPRESSION: No acute cardiopulmonary process. Reviewed, Interpreted and Dictated by Trell Isabel MD Transcribed by Kathryn Fay Authenticated and [facility]
== END 2025-01-18 23:59 | disposition home or self-care (01) ==
PROVIDERS: PCP Family Medicine; Visit Provider Physician Assistant
DX: I70.213 Atherosclerosis of native arteries of extremities with intermittent claudication, bilateral legs (principal); I25.10 Atherosclerotic heart disease of native coronary artery without angina pectoris; I48.0 Paroxysmal atrial fibrillation; I10 Essential (primary) hypertension; G45.9 Transient cerebral ischemic attack, unspecified; I63.9 Cerebral infarction, unspecified; E11.9 Type 2 diabetes mellitus without complications
CPT/HCPCS: 71046; 93923

== ENCOUNTER 2025-01-22 19:44 | Observation (INO) | payer MEDICARE, OTHER, SELFPAY ==
--- OUTSIDE RECORDS SUMMARY | 2024-07-29 07:45 | XMS_ITS ---
Author Organization [facility] Address [address] [facility] [address] [facility] [address] [place] [id number] Care Team Providers Care Pipeline Inspector Name Role Phone Cosme Garcia Primary Care Provider REASON FOR VISIT F/U [facility] Encounters Encounter Location Date Provider Diagnosis [facility] [address] [place] [id number] 07/29/2024 Cosme Garcia Plan Of Treatment Next Appt Details Provider Name:Cosme Amos ry, 02/20/2025 01:30:00 PM, [address], [address], [place], [place], [phone], Progress Notes * URIAHSwathiJenniferOB: 9 (74 yo F)Acc No.[id number]:07/29/2024 Progress Notes Patient: Yesi UGALDE Provider: Damion Garcia M.D. :1950 A ge:74 Y S ex:Female Date:07/29/2024 Address:[facility] [id number] Subjective: * Chief Complaints: * 1 . F/U [facility]. * Medical History: Objective: * Vitals: Assessment: Plan: * Treatment: * Billing Information: * Visit Code: * Procedure Codes: * Electronic signature of Carol Garcia MD on 01/22/2025 at 08:06 PM EDT Sign off status: Pending * Provider: Damion Garcia M.D. Date: 09/29/2023 Generated for Alexander camp/Vamsi/eTransmitting on: 0 01/22/2025 08:06 PM EDT
--- OUTSIDE RECORDS SUMMARY | 2024-08-31 09:30 | XMS_ITS ---
Author Organization [facility] Address [address] [place] [id number] Care Team Providers Care Hemmer Automatic Name Role Phone Cosme Garcia Primary Care Provider Allergies No Known Allergies REASON FOR VISIT cracked heels Medications Medication SIG (Take, Route, Frequency, Duration) Notes Start Date End Date Status FreeStyle Jg 3 [place] - as directed 08/19/2024 Active Accu-Chek Amanda [...] day Active Mupirocin 2 % 1 application Surveying Crew Rodman ally Twice a day 08/31/2024 Active Vital Signs Blood pressure systolic 120 mm Hg 08/31/19 25 Blood pressure diastolic 70 mm Hg 025 Heart Rate 106 /min 08/31/2024 Height 63 in 08/31/2024 Weight 167.4 lbs 08/31/2024 BMI 29.65 kg/m2 08/31/2024 Encounters Encounter Location Date Provider Diagnosis [facility] [address] [facility] [address] [place], [place] [id number] 08/31/2024 Cosme Garcia Open wound of right [...] repo rt progress, Reason: Provider Name:Cosme Amos ry, 02/20/2025 01:30:00 PM, [address], [address], [place], [place], [id number], Progress Notes * Alec FERNANDEZOB: 9 (74 yo F)Acc No.[id number]:08/31/2024 Progress Notes Patient: Yesi UGALDE Provider: Damion Garcia M.D. :1950 A ge:74 Y S ex:Female Date:08/31/2024 Address:[address] [place], [place] [address], [id number] Subjective: * Chief Complaints: * 1 . [...] to Pharmacist: E11.9, Taking FreeStyle Jg 3 [place] - Device as directed , Discontinued Spironolactone [...] progress * Billing Information: * Visit Code: 24948 Office Visit, Est Pt., Level 3. * Procedure Codes: G2211 Complex e/m visit add on. * Electronic signature of Carol Garcia MD on 01/22/2025 at 08:07 PM EDT Sign off status: Pending * Provider: Damion Garcia M.D. Date: 0 08/31/2024 Generated for Alexander camp/Vamsi/Yung on: 0 01/22/2025 08:07 PM EDT History and Physical Notes * [...]
--- OUTSIDE RECORDS SUMMARY | 2024-10-21 05:30 | XMS_ITS ---
Author Organization [facility] Address [address] [facility] [address] [place] [id number] Care Team Providers Care Product Applications Engineer Name Role Phone Cosme Garcia Primary Care Provider [phone] Allergies No Known Allergies Results Component Value [...] 47 Performing Lab: Notes/Report: Test performed by [facility] [address] [place] [address] , [address], [place] [address] Andrea Flores MD, Dough Panner CLIA: [id number] Sodium 144 135-145 mmol/L Potassium 4.4 3.5-5.3 [...] Interpretation:Normal Performing Lab: Notes/Report: Test performed by [facility] [address] [place] [address] , [place] [address] Andrea Flores MD, Dough Panner CLIA: [id number] Thyroxine Free (free T4) 1.66 0.86-1.76 ng/dL P-Iron Reviewed date:10/24/2024 12:19:30 PM Interpretation:Normal Performing Lab: Notes/Report: Test performed by [facility] [address] [place] [address] , [facility] [place] [address] Andrea Flores MD, Dough Panner CLIA: [id number] Iron 42 37-145 ug/dL P-Lipid Panel Reviewed date:10/24/2024 12:19:30 PM Interpretation:Normal Performing Lab: Notes/Report: Test performed by [facility] [address] [place] [address] , [facility] [place] [place] [address] Andrea Flores MD, Dough Panner CLIA: [id number] Cholesterol 167 <200 mg/dL Triglycerides 108 <150 [...] Interpretation:Normal Performing Lab: Notes/Report: Test performed by [facility] [address] [place] [address] [facility], [place] [address] Andrea Flores MD, Dough Panner CLIA: [id number] Phosphorus 4.2 2.5-4.5 mg/dL P-TSH Reviewed date:10/24/2024 12:19:30 PM Interpretation:7.02 Performing Lab: Notes/Report: Test performed by [facility] [address] [place] [address] , [address], [place] [address] Andrea Flores MD, Dough Panner CLIA: [id number] TSH 7.02 0.43-5.25 mU/L P-Microalbumin/Creatinine, R andom Urine Sample Reviewed date:10/24/2024 12:19:30 PM Interpretation:Album/Creat 65 Performing Lab: Notes/Report: Test performed by [facility] [address] [place] [address] , [address], [place] [address] Andrea Flores MD, Dough Panner CLIA: [id number] Albumin/Creatinine Ratio, Urine 65 0-30 ug/m g [...] EMMA TH TWICE DAILY for 30 Active Pantoprazole Sodium 40 MG TAKE 1 TABLET BY MOUTH ONCE DAILY for 30 Active Ondansetron 4 MG 1 tablet [...] BY MOUTH ONCE DAILY for 30 Active Vitamin D3 50 MCG (1999 UT) 2 tab(s) orally once a day 03/09/2019 A ctive Clopidogrel Bisulfate 75 MG TAKE 1 TABLET EVERY DAY for 90 Active Aspirin Adult Low Dose 81 MG 1 tab(s) orally once a day A ctive FreeStyle Jg 3 [place] - as directed 08/19/2024 Active Accu-Chek Amanda Plus - 1 strip(s) finger stick 2 times a day or as directed for 30 day(s) E11.9 Active Vital Signs Blood pressure systolic 122 mm Hg 10/22/19 25 Blood pressure diastolic 72 mm Hg 025 Heart Rate 79 /min 10/21/2024 Height 63 in 10/21/2024 Weight 171.6 lbs 10/21/2024 BMI 30.39 kg/m2 10/21/2024 Encounters Encounter Location Date Provider Diagnosis [facility] [address] [facility] [address] [place], [place] [id number] 10/21/2024 Cosme Garcia Type 2 diabetes darren [...] Up: 4 Months, Reason: Provider Name:Cosme Amos , 02/20/2025 01:30:00 PM, [address] [facility] [address] [facility], [address], [place], [place], [id number], Progress Notes * Alec FERNANDEZOB: 9 (74 yo F)Acc No.[id number]:10/21/2024 Progress Notes Patient: Yesi UGALDE Provider: Damion Garcia M.D. :1950 A ge:74 Y S ex:Female Date:10/21/2024 Address:[address] [place] [address] [place], [id number] Subjective: * Chief Complaints: * 1 . [...] to Pharmacist: E11.9, Taking FreeStyle Jg 3 [place] - Device as directed , Taking Jardiance [...] G eneral Examination: General Appearance: N AD. Heart: R SR. Lungs: c lear to auscultation. Assessment: * Assessment: 1. T [...] lycohemoglobin 7.3% 5 - 6.5 % * Gracia Muñoz 10/21/2024 11:02:4 2 AM > Loraine Escalante [...] Gracia Muñoz 10/21/2024 11:01:3 7 AM > Loraine Escalante 10/24/2024 12:19:08 PM > see TE 5.?Acquired hypothyroidism? Continue Levothyroxine Sodium Tablet, 100 MCG, 1 tablet in the morning on an empty stomach, Orally,Once a day.?LAB: P-T4 Free (thyroxine) (Collection Date & Time - 10/21/2024 10:33 AM)? Normal* Value Reference Range T hyroxine Free (free T4) 1.66 0.86-1.76 - ng/d L * Loraine Escalante 10/24/2024 12: 19:08 PM [...] G 2211 Complex e/[place], [address] GLUCOSE TEST, [address] GLYCATED HEMOGLOBIN TEST, Modifiers: QW , 42868 CBC WITH AUTO DIFF, 3051F HG A1C>EQUAL 7.0%<8.0%, G8752 MOST RECENT SYSTOLIC BP < 140MM HG, G8754 MOST RECENT DIASTOLIC BP < 90MM HG * Follow Up: 4 Months * Billing Information: * Visit Code: 37241 Office Visit, Est Pt., Level 4. * Procedure Codes: G2211 Complex e/[place]. [address] GLUCOSE TEST. [address]658 GLYCATED HEMOGLOBIN TEST. Modifiers: QW 27233 CBC WITH AUTO DIFF. 3051F HG A1C>EQUAL 7.0%<8.0%. G8752 MOST RECENT SYSTOLIC BP < 140MM HG. G8754 MOST RECENT DIASTOLIC BP < 90MM HG. * Electronic signature of Carol Garcia MD on 01/22/2025 at 08:07 PM EDT Sign off status: Pending * Provider: Damion Garcia M.D. Date: 0 10/21/2024 Generated for Alexander camp/Vamsi/Josemanuelsmitting on: 0 01/22/2025 08:07 PM EDT History and Physical Notes * HPI (History of Present Illness) Category Sub-Category Detail Notes Category Not es Endocrinology Recent Blood Sugars Pt here to f/u on DM 2 Examination Category Sub-Category Detail Notes Category Not es General Examination Heart: RSR Lungs: clear to auscultatio n General Appearance: NAD
[2025-01-22] VITALS (12 sets, daily range): BP systolic 111–144; BP diastolic 54–77; PULSE 86–117; RESP 16–22; TEMP 36.6–36.9; O2SAT 95–99; BMI 30.1
--- NOTE | 2025-01-22 19:48 | ECG_ITS ---
APPROVED REPORT Exam: Resting ECG HR:114 bpm ECG Measurements Heart Rate 114 AXES MT 119 P 229 QRSd 143 QRS 29 QT 376 T 112 QTc 444 Conclusion SINUS TACHYCARDIA WITH SHORT MT INTERVAL LEFT BUNDLE BRANCH BLOCK [120+ ms QRS DURATION, 80+ ms Q/S IN V1/V2, 85+ ms R IN I/aVL/V5/V6] ABNORMAL ECG Electronically signed by : JANE TURCIOS, 01/23/2025 07:00:49
--- NOTE | 2025-01-22 19:49 | XR_ITS ---
PROCEDURE INFORMATION: Exam: XR Chest Exam date and time: 01/22/2025 8:14 PM Age: 74 years old Clinical indication: Pain; Shortness of breath; Left-sided; Additional info: Shortness of air/cp TECHNIQUE: Imaging protocol: Radiologic exam of the chest. Views: 1 view. COMPARISON: CR XR CHEST 2V 01/18/2025 10:07 AM FINDINGS: Lungs: Minimal bilateral lower lung zone subsegmental atelectasis. No consolidation. Pleural spaces: Unremarkable. No pleural effusion. No pneumothorax. Heart/Mediastinum: Unremarkable. No cardiomegaly. Bones/joints: Unremarkable. Other findings: Suboptimal inspiratory effort. IMPRESSION: Subsegmental atelectasis.
--- NOTE | 2025-01-22 19:56 | HMH.EDGENADL ---
Discharge Plan Disposition Patient Disposition: Admitted Condition: Fair Clinical Impressions Clinical Impression: DOOLEY (dyspnea on exertion), Chest pain Anemia Qualifiers: Anemia type: unspecified type Qualified Code(s): D64.9 - Anemia, unspecified Discharge ED Provider: Antony Valera General Adult HPI <MUNA Campos - Last Filed: 01/22/25 22:31> General Chief complaint: Chest Pain Stated complaint: Chest Pain Time Seen by Provider: 01/22/25 19:47 Mode of Arrival: Ambulatory Source of Information: Patient and Relative Limitations: No Limitations History of Present Illness HPI narrative: 74-year-old female presents to the emergency department accompanied by her daughter for a 2-week history of worsening dyspnea on exertion, with some dyspnea at rest at times, patient did have an episode of chest pain/chest pressure , today, the radiated down bilateral upper extremities, that occurred around 630/7 PM, with worsening DOOLEY, describes it as a 5 out of 10, currently a 0 out of 10 at rest, denies any fever chills cough congestion, denies any abdominal pain nausea vomiting constipation diarrhea no urinary type symptomatology, no lower extremity swelling, was recently seen by [facility]rom[facility] team for lower extremity swelling, does have past medical history consistent with carotid artery stenosis status post bilateral stent placement, hypothyroidism, coronary artery disease status post 5 stent placements, anemia, paroxysmal atrial fibrillation on anticoagulation therapy with Xarelto, lipidemia, T2DM, hypertension, data deficient history of incomplete therapy of Plavix, patient does not take any aspirin at home. Patient is a non-smoker denies any alcohol or drug use, initial triage vitals noted for tachycardia otherwise unremarkable. Onset (ago): week(s) Related Data Home Medications ?Medication ?Instructions ?Recorded ?Confirmed metformin 1,000 mg tablet 1,000 mg PO BID 01/02/21 01/16/25 atorvastatin 80 mg tablet 80 mg PO DAILY 02/03/22 01/16/25 blood sugar diagnostic (Accu-Chek #10 ea 02/03/22 01/16/25 Amanda Plus test strips) clopidogrel 75 mg tablet 75 mg PO DAILY 02/03/22 01/16/25 lancets (Accu-Chek Softclix #100 ea 02/03/22 01/16/25 Lancets) pen needle, diabetic 31 gauge x #1,200 02/03/22 01/16/25/16 (Droplet Pen Needle) vitamin B12 500 mcg-folic acid 400 1 tab PO DAILY Supplement 06/29/23 01/16/25 mcg tablet insulin glargine 100 unit/mL (3 40 unit SQ HS 10/01/23 01/16/25 mL) subcutaneous pen (Lantus Solostar U-100 Insulin) cholecalciferol (vitamin D3) 10 10 mcg PO DAILY 03/31/24 01/16/25 mcg (400 unit) capsule empagliflozin 25 mg tablet 25 mg PO DAILY 06/27/24 01/16/25 (Jardiance) apixaban 5 mg tablet (Eliquis) 5 mg PO BID 07/15/24 01/16/25 oxybutynin chloride 5 mg 5 mg PO DAILY 07/15/24 01/16/25 tablet,extended release 24 hr famotidine 20 mg tablet 20 mg PO DAILY 08/09/24 01/16/25 insulin aspart U-100 100 unit/mL SQ 08/09/24 01/16/25 (3 mL) subcutaneous pen (Novolog FlexPen U-100 Insulin aspart) levothyroxine 100 mcg tablet 100 mcg PO DAILY 08/09/24 01/16/25 Previous Rx's ?Medication ?Instructions ?Recorded pantoprazole 40 mg tablet,delayed 40 mg PO DAILY #30 tabs 07/16/24 release (Protonix) promethazine 12.5 mg tablet 12.5 mg PO Q6H PRN nausea and 07/16/24 vomiting #20 tabs metoprolol tartrate 25 mg tablet 12.5 mg (1/2 x 25 mg) PO BID #60 08/24/24 tabs Allergies Allergy/AdvReac Type Severity Reaction Status Date / Time amiodarone AdvReac Severe thyroid Verified 01/22/25 20:10 toxicity [facility] <MUNA Campos - Last Filed: 01/22/25 22:31> [facility] Disclaimer: The information contained in this section may have been updated after the patient was seen, as this information can be updated by other users. Medical History (Updated 01/22/25 @ 22:31 by MUNA Campos) Atherosclerosis of [place] arteries of extremities with intermittent claudication, bilateral legs Claudication Fall with injury Thyroid nodule Daytime somnolence Fatigue HTN (hypertension) Frequent falls Carotid artery disease PAD (peripheral artery disease) Elevated TSH Paroxysmal A-fib Coronary artery disease CHI (closed head injury) Atrial fibrillation with rapid ventricular response History of TIA (transient ischemic attack) Closed fracture of left patella Vocal cord paralysis Cerebrovascular accident Hyperlipidemia Hypertensive cardiovascular disease Diabetes mellitus Surgical History History of cardiac cath Stented coronary artery History of colonoscopy History of carotid endarterectomy Family History Other Coronary artery disease Diabetes Heart attack Hyperlipidemia Hypertension Stroke Social History Smoking Status: Never smoker alcohol intake: never substance use type: denies use current occupational status: retired Travel in the last 8 weeks?: None household members: family housing: house current occupational exposures/hazards: No caffeine: Yes Have you lived/traveled outside [place] in past 30 days?: No Contact w/someone who lives/traveled outside US past 30 days?: No Exposure to someone with infectious disease in past 14 days?: No Do you have a fever (greater than 100.4 F or 38 C)?: No Have you tested positive for COVID-19?: No Exposed to someone with COVID-19 in past 14 days?: No Do you have a sore throat?: No Do you have a cough?: No Do you have any weakness?: No Do you have any diarrhea?: No Are you experiencing any unusual bleeding?: No Do you have any muscle aches/pain?: No Do you have any abdominal pain?: No Are you experiencing loss of taste or smell?: No Other Medical History Have you received the Flu Vaccine for this season: No Have you received the Pneumonia Vaccine: No <MUNA Campos - Last Filed: 01/22/25 22:31> ROS Obtained: Yes All systems reviewed & no additional complaints except as documented Physical Exam <MUNA Campos - Last Filed: 01/22/25 22:31> General General appearance: alert and in no apparent distress Head Head exam: atraumatic and normocephalic Eye Eye exam: Present normal appearance, PERRL and EOMI Neck Neck exam: Present full ROM; Absent meningismus Chest Chest inspection: Present normal inspection Respiratory Respiratory exam: Absent respiratory distress, wheezes, stridor, accessory muscle use or prolonged expiratory phase Cardiovascular Cardiovascular exam: Present normal rhythm, tachycardia and other (Pulses equal and symmetric in bilateral upper and lower extremities) Abdominal Exam Abdominal exam: Absent distention, tenderness, guarding or rebound Extremities Exam Extremities exam: Absent edema Neurological Exam Neurological exam: Present alert Psychiatric Psychiatric exam: Present normal affect Skin Skin exam: Present warm and dry Medical Decision Making <MUNA Campos - Last Filed: 01/22/25 22:31> Medical Records Medical records reviewed: Yes I reviewed the patient's medical records. Screening: Per USPSTF and CDC recommendations, given the prevalence of disease in our region, it is our hospital?s policy to screen for HIV and viral Hepatitis for all patients aged 18 and over and those with ongoing risk factors. Dae Inquiry Pt receiving controlled substance: No Dae was queried for this patient: No Vital Signs: 01/22/25 19:54 01/22/25 20:01 01/22/25 20:31 Temperature 97.8 F Temperature Source Oral Pulse Rate 105 H 100 H Pulse Rate [Right] 117 H Respiratory Rate 18 22 Blood Pressure 132/62 122/56 L Blood Pressure [Right Arm] 142/77 H Blood Pressure Mean Blood Pressure Mean [Right Arm] 98 Blood Pressure Source [Right Arm] Automatic Cuff Blood Pressure Position [Right Arm] Sitting 02 Sat by Pulse Oximetry 96 95 97 Oxygen Delivery Method Room Air 01/22/25 21:01 01/22/25 21:30 01/22/25 22:10 Temperature Temperature Source Pulse Rate 98 H 115 H 106 H Pulse Rate [Right] Respiratory Rate Blood Pressure 144/73 H 111/54 L 126/63 Blood Pressure [Right Arm] Blood Pressure Mean 88 77 Blood Pressure Mean [Right Arm] Blood Pressure Source [Right Arm] Blood Pressure Position [Right Arm] 02 Sat by Pulse Oximetry 98 98 99 Oxygen Delivery Method 01/22/25 22:30 Temperature Temperature Source Pulse Rate 90 Pulse Rate [Right] Respiratory Rate 17 Blood Pressure 132/67 Blood Pressure [Right Arm] Blood Pressure Mean Blood Pressure Mean [Right Arm] Blood Pressure Source [Right Arm] Blood Pressure Position [Right Arm] 02 Sat by Pulse Oximetry 98 Oxygen Delivery Method Lab Data Lab results reviewed: Yes I reviewed the patient's lab results. Lab Results 01/22/25 19:50: WBC 8.2, RBC 2.42 L, Hgb 6.7 L*, Hct 22.1 L, MCV 91.3, MCH 27.7, MCHC 30.3 L, RDW 15.2, Plt Count 380, MPV 9.7, Neut % (Auto) 63.7, Lymph % (Auto) 21.6, Mobile % (Auto) 7.4, Eos % (Auto) 6.2, Baso % (Auto) 0.7, Neut # (Auto) 5.2, Lymph # (Auto) 1.8, Mobile # (Auto) 0.6, Eos # (Auto) 0.5 H, Baso # (Auto) 0.1, PT 10.5, INR 0.94, Sodium 137, Potassium 4.7, Chloride 105, Carbon Dioxide 23, Anion Gap 13.7, BUN 36 H, Creatinine 1.20 H, Estimated Creat Clear 49, Estimated GFR 44 L, Est GFR ( Amer) 53 L, Glucose 423 H*, Calcium 8.6, Magnesium 1.6, Total Bilirubin 0.3, AST 30, ALT 18, Alkaline Phosphatase 118, Troponin I 0.02, NT-Pro-B Natriuret Pep 823 H, Total Protein 7.1, Albumin 4.0, Globulin 3.1, Albumin/Globulin Ratio 1.3 01/22/25 21:15: Blood Type O Negative, Antibody Screen Negative, Crossmatch (AHG) See Detail 01/22/25 19:50 01/22/25 19:50 Orders (Tests/Meds): ED MEDICATIONS Generic Name Dose Route Start Last Admin Trade Name Freq PRN Reason Stop Dose Admin Acetaminophen 650 mg 01/22/25 22:12 Acetaminophen 325mg Tab PO 02/21/25 22:11 Q6HP PRN Fever or Mild Pain (1-3) Sodium Chloride 250 mls @ 25 mls/hr 01/22/25 21:00 Sod Chlor 0.9% 250ml Bag IV 01/23/25 20:59 .Q10H MARIE Sodium Chloride 10 ml 01/22/25 22:03 01/22/25 22:04 Sodium Chloride 0.9% 10ml Syr (Rad Only) IV 02/21/25 22:02 10 ml NEEDED PRN Administration Maintain IV Site Discontinued Medications Generic Name Dose Route Start Last Admin Trade Name Freq PRN Reason Stop Dose Admin Aspirin 325 mg 01/22/25 19:56 01/22/25 20:04 Aspirin 325mg Tablet PO 01/22/25 19:57 325 mg ONCE ONE Administration Insulin Human Regular 4 unit 01/22/25 20:50 01/22/25 21:32 Insulin Human Regular 100 Units/Ml 10ml Vial 0.05 unit/kg (4 unit) 01/22/25 20:51 4 unit IV Administration ONCE ONE Iopamidol 80 ml 01/22/25 22:03 01/22/25 22:04 Iopamidol-370 (76%);100ml Bottle IV 01/22/25 22:04 80 ml ONCE ONE Administration Sodium Chloride 50 ml 01/22/25 22:03 01/22/25 22:04 0.9 % Sodium Chloride 50 Ml Vial IV 01/22/25 22:04 50 ml ONCE ONE Administration ORDERS Category Date Time Status Blood transfusion [Red Blood Cells] Stat BBK 01/22/25 21:15 Results Type and Screen Stat BBK 01/22/25 21:[address] angio abd/pel - GI Bleed Stat Cat Scan 01/22/25 21:27 Taken XR chest portable Stat Exams 01/22/25 19:49 Completed Complete Blood Count Auto Diff Stat Lab 01/22/25 19:50 Completed Comprehensive Metabolic Panel Stat Lab 01/22/25 19:50 Completed Magnesium Stat Lab 01/22/25 19:50 Completed NT Pro Brain Natriuretic Pep. Stat Lab 01/22/25 19:50 Completed Occult Blood,Stool Stat Lab 01/22/25 20:28 Ordered PT INR [Prothrombin Time INR] Stat Lab 01/22/25 19:50 Completed Troponin I Q3H Lab 01/22/25 22:12 Received Troponin I Q3H Lab 01/23/25 02:00 Ordered Troponin I Stat Lab 01/22/25 19:50 Completed Urinalysis and Microscopic Stat Lab 01/22/25 19:57 Ordered Medical Decision Narrative: 74-year-old female presents emergency department with chest pain and shortness of breath/dyspnea on exertion, for the last 2 weeks, worsened today, differential diagnosis clued but not limited to ACS, acute CHF exacerbation/new onset CHF, cardiac arrhythmia, electrolyte disturbance, costochondritis, panic attack, anxiety reaction, GERD, gastritis among others Discussed patient case with attending physician Dr. Valera Will obtain basic upper studies, EKG, UA, chest x-ray, magnesium level proBNP, PT/INR, troponin and will give 325 mg p.o. aspirin for pain. CBC are notable for 3 cytopenia at 2.42, hemoglobin is decreased at 6.7 hematocrit is decreased 22.1 this is decreased outside of her baseline in September 2024 the patient had 11.4 hemoglobin. When discussing this with the patient and family the bedside, patient's MCV is within normal limits, however patient states she has data deficient history of iron deficiency anemia, does take iron segmentation for this, does admit to black stools , she attributes this to her iron supplementation. However, presumed positive fecal occult as patient is on iron supplementation will still obtain. Coag within normal limits BUN is minimally elevated at 36, creatinine is minimally elevated at 1.2, hyperglycemia 423 is noted patient states she has not taken her antihyperglycemic's today, or any of her other medications today. proBNP is mildly elevated at 823. Troponin is 0.02 Will give 4 units of IV insulin for hyperglycemia as patient not taking her insulin as prescribed today. Will obtain type and screen and will give 1 unit PRBCs and obtain type and screen I discussed this patient's case with Desean Santiago APRN the hospitalist service at approximately 9:25 PM, he is agreement with current admission plan/treatment plan, he would like me to transfuse additional unit of 1 PRBC, with a total of 2, he would like me to also obtain CT abdomen pelvis for GI/to rule out any other acute bleed, thus will obtain CTA abdomen pelvis with contrast for further evaluation/characterization. I discussed need for admission with the patient and and family at the bedside patient and family agree with current treatment plan/admission plan. I reviewed the patient's chest x-ray along the corresponding radiologic report, subsegmental atelectasis I was informed by nursing staff that this patient's primary care provider is Dr. Garcia, thus hospitalist will not be accepting the patient, discussed this patient's case with Dr. Morrow at approximately 10:05 PM, he is on-call for Dr. Garcia, he graciously accepts the patient to the inpatient service. Make patient n.p.o. after midnight and continued to hold anticoagulants. Blood type is O-, <Antony Valera MD - Last Filed: 01/22/25 22:49> Vital Signs: 01/22/25 19:54 01/22/25 20:01 01/22/25 20:31 Temperature 97.8 F Temperature Source Oral Pulse Rate 105 H 100 H Pulse Rate [Right] 117 H Respiratory Rate 18 22 Blood Pressure 132/62 122/56 L Blood Pressure [Right Arm] 142/77 H Blood Pressure Mean Blood Pressure Mean [Right Arm] 98 Blood Pressure Source [Right Arm] Automatic Cuff Blood Pressure Position [Right Arm] Sitting 02 Sat by Pulse Oximetry 96 95 97 Oxygen Delivery Method Room Air 01/22/25 21:01 01/22/25 21:30 01/22/25 22:10 Temperature Temperature Source Pulse Rate 98 H 115 H 106 H Pulse Rate [Right] Respiratory Rate Blood Pressure 144/73 H 111/54 L 126/63 Blood Pressure [Right Arm] Blood Pressure Mean 88 77 Blood Pressure Mean [Right Arm] Blood Pressure Source [Right Arm] Blood Pressure Position [Right Arm] 02 Sat by Pulse Oximetry 98 98 99 Oxygen Delivery Method 01/22/25 22:30 Temperature Temperature Source Pulse Rate 90 Pulse Rate [Right] Respiratory Rate 17 Blood Pressure 132/67 Blood Pressure [Right Arm] Blood Pressure Mean Blood Pressure Mean [Right Arm] Blood Pressure Source [Right Arm] Blood Pressure Position [Right Arm] 02 Sat by Pulse Oximetry 98 Oxygen Delivery Method Lab Data Lab Results 01/22/25 19:50: WBC 8.2, RBC 2.42 L, Hgb 6.7 L*, Hct 22.1 L, MCV 91.3, MCH 27.7, MCHC 30.3 L, RDW 15.2, Plt Count 380, MPV 9.7, Neut % (Auto) 63.7, Lymph % (Auto) 21.6, [place] % (Auto) 7.4, Eos % (Auto) 6.2, Baso % (Auto) 0.7, Neut # (Auto) 5.2, Lymph # (Auto) 1.8, [place] # (Auto) 0.6, Eos # (Auto) 0.5 H, Baso # (Auto) 0.1, PT 10.5, INR 0.94, Sodium 137, Potassium 4.7, Chloride 105, Carbon Dioxide 23, Anion Gap 13.7, BUN 36 H, Creatinine 1.20 H, Estimated Creat Clear 49, Estimated GFR 44 L, Est GFR ( Amer) 53 L, Glucose 423 H*, Calcium 8.6, Magnesium 1.6, Total Bilirubin 0.3, AST 30, ALT 18, Alkaline Phosphatase 118, Troponin I 0.02, NT-Pro-B Natriuret Pep 823 H, Total Protein 7.1, Albumin 4.0, Globulin 3.1, Albumin/Globulin Ratio 1.3 01/22/25 21:15: Blood Type O Negative, Antibody Screen Negative, Crossmatch (AHG) See Detail Orders (Tests/Meds): ED MEDICATIONS Generic Name Dose Route Start Last Admin Trade Name Shorty PRN Reason Stop Dose Admin Acetaminophen 650 mg 01/22/25 22:12 Acetaminophen 325mg Tab PO 02/21/25 22:11 Q6HP PRN Fever or Mild Pain (1-3) Sodium Chloride 250 mls @ 25 mls/hr 01/22/25 21:00 Sod Chlor 0.9% 250ml Bag IV 01/23/25 20:59 .Q10H MARIE Sodium Chloride 10 ml 01/22/25 22:03 01/22/25 22:04 Sodium Chloride 0.9% 10ml Syr (Rad Only) IV 02/21/25 22:02 10 ml NEEDED PRN Administration Maintain IV Site Discontinued Medications Generic Name Dose Route Start Last Admin Trade Name Freq PRN Reason Stop Dose Admin Aspirin 325 mg 01/22/25 19:56 01/22/25 20:04 Aspirin 325mg Tablet PO 01/22/25 19:57 325 mg ONCE ONE Administration Insulin Human Regular 4 unit 01/22/25 20:50 01/22/25 21:32 Insulin Human Regular 100 Units/Ml 10ml Vial 0.05 unit/kg (4 unit) 01/22/25 20:51 4 unit IV Administration ONCE ONE Iopamidol 80 ml 01/22/25 22:03 01/22/25 22:04 Iopamidol-370 (76%);100ml Bottle IV 01/22/25 22:04 80 ml ONCE ONE Administration Sodium Chloride 50 ml 01/22/25 22:03 01/22/25 22:04 0.9 % Sodium Chloride 50 Ml Vial IV 01/22/25 22:04 50 ml ONCE ONE Administration ORDERS Category Date Time Status Blood transfusion [Red Blood Cells] Stat [facility] 01/22/25 21:15 Results Type and Screen Stat [facility] 01/22/25 21:[address] angio abd/pel - GI Bleed Stat Cat Scan 01/22/25 21:27 Taken XR chest portable Stat Exams 01/22/25 19:49 Completed Complete Blood Count Auto Diff Stat Lab 01/22/25 19:50 Completed Comprehensive Metabolic Panel Stat Lab 01/22/25 19:50 Completed Magnesium Stat Lab 01/22/25 19:50 Completed NT Pro Brain Natriuretic Pep. Stat Lab 01/22/25 19:50 Completed Occult Blood,Stool Stat Lab 01/22/25 20:28 Ordered PT INR [Prothrombin Time INR] Stat Lab 01/22/25 19:50 Completed Troponin I Q3H Lab 01/22/25 22:12 Received Troponin I Q3H Lab 01/23/25 02:00 Ordered Troponin I Stat Lab 01/22/25 19:50 Completed Urinalysis and Microscopic Stat Lab 01/22/25 19:57 Ordered ECG Data Tracing #1: I reviewed this ECG and interpreted as documented below: (Sinus tachycardia 114 bpm with left bundle branch block morphology [place] 119, QRS 143, QTc 444. Sgarbossa negative) Medical Decision Narrative: 74-year-old female presents emergency department with chest pain and shortness of breath/dyspnea on exertion, for the last 2 weeks, worsened today, differential diagnosis clued but not limited to ACS, acute CHF exacerbation/new onset CHF, cardiac arrhythmia, electrolyte disturbance, costochondritis, panic attack, anxiety reaction, GERD, gastritis among others Discussed patient case with attending physician Dr. Valera Will obtain basic upper studies, EKG, UA, chest x-ray, magnesium level proBNP, PT/INR, troponin and will give 325 mg p.o. aspirin for pain. CBC are notable for 3 cytopenia at 2.42, hemoglobin is decreased at 6.7 hematocrit is decreased 22.1 this is decreased outside of her baseline in September 2024 the patient had 11.4 hemoglobin. When discussing this with the patient and family the bedside, patient's MCV is within normal limits, however patient states she has data deficient history of iron deficiency anemia, does take iron segmentation for this, does admit to black stools , she attributes this to her iron supplementation. However, presumed positive fecal occult as patient is on iron supplementation will still obtain. Coag within normal limits BUN is minimally elevated at 36, creatinine is minimally elevated at 1.2, hyperglycemia 423 is noted patient states she has not taken her antihyperglycemic's today, or any of her other medications today. proBNP is mildly elevated at 823. Troponin is 0.02 Will give 4 units of IV insulin for hyperglycemia as patient not taking her insulin as prescribed today. Will obtain type and screen and will give 1 unit PRBCs and obtain type and screen I discussed this patient's case with Desean Santiago APRN the hospitalist service at approximately 9:25 PM, he is agreement with current admission plan/treatment plan, he would like me to transfuse additional unit of 1 PRBC, with a total of 2, he would like me to also obtain CT abdomen pelvis for GI/to rule out any other acute bleed, thus will obtain CTA abdomen pelvis with contrast for further evaluation/characterization. I discussed need for admission with the patient and and family at the bedside patient and family agree with current treatment plan/admission plan. I reviewed the patient's chest x-ray along the corresponding radiologic report, subsegmental atelectasis I was informed by nursing staff that this patient's primary care provider is Dr. Garcia, thus hospitalist will not be accepting the patient, discussed this patient's case with Dr. Morrow at approximately 10:05 PM, he is on-call for Dr. Garcia, he graciously accepts the patient to the inpatient service. Make patient n.p.o. after midnight and continued to hold anticoagulants. Blood type is O-, I was consulted by the FRANCISCO, and we discussed the complexity of the problems being addressed. I approved the treatment and management plan for this patient's care in the Emergency Department, thus performing a substantive portion of the medical decision making. Antony Valera MD Critical Care <MUNA Campos - Last Filed: 01/22/25 22:31> Critical Care Time Critical Care Time: No <Antony Valera MD - Last Filed: 01/22/25 22:49> Critical Care Time Critical Care Time: Yes (hematologic) Attestation: On 01/22/25, the high probability of a clinically significant, sudden or life threatening deterioration of the following system(s) required my full and direct attention, intervention and personal management. The time I documented below is in addition to time spent performing reported procedures but includes the following listed in this critical care notation. Total Time Total Critical Care Time: 35
[2025-01-22] MEDS: ASPIRIN 325MG TABLET 325 MG PO (20:04)
--- OUTSIDE RECORDS SUMMARY | 2025-01-22 20:07 | XMS_ITS | Patient Health Record ---
Author Organization [facility] Address [address] [facility] [address] [place] [id number] Care Team Providers Care Sample Supervisor Name Role Phone Cosme Garcia Primary Care Provider Allergies No Known Allergies Results Component Value Reference Range Notes P-Iron Reviewed date:10/24/2024 12:19:30 PM Interpretation:Normal Performing Lab: Notes/Report: Test performed by [facility] [facility] [employer] [address] [place], [place] [address] [place] , [address], [place] [address] Andrea Flores MD, Rent Control Office Manager CLIA: [id number] Iron 42 37-145 ug/dL P-T4 Free (thyroxine) Reviewed date:10/24/2024 12:19:30 PM Interpretation:Normal Performing Lab: Notes/Report: Test performed by [facility] [facility] [address] [place] [address] , [address], [place] [address] Andrea Flores MD, Rent Control Office Manager CLIA: [id number] Thyroxine Free (free T4) 1.66 0.86-1.76 ng/dL P-Comprehensive Metabolic Pa luis (CMP) Reviewed date:10/24/2024 12:19:30 PM Interpretation:glu 111, BUN 27, Creat 1.20, GFR 47 Performing Lab: Notes/Report: Test performed by [facility] [address] [place] [address] , [address], [place] [address] Andrea Flores MD, Rent Control Office Manager CLIA: [id number] Sodium 144 135-145 mmol/L Potassium 4.4 3.5-5.3 [...] blood glucose 140 74 - 106 mg/dL Urinalysis - Inhouse Reviewed date:06/22/2024 12:45:35 PM Interpretation: Performing Lab: Notes/Report: Color/Clarity yellow/cloudy Leuk Trace Nitrite Pos Urobili 3.2 Protein 3+ pH 5.5 Blood 2+ Sp. Gr. >1.030 Ketone Trace Bili 1+ Gluc 1+ Glucose (In-House) Reviewed date:06/22/2024 12:45:45 PM Interpretation: Performing Lab: Notes/Report: blood glucose 327 74 - 106 mg/dL CBC Fingerstick (in house) Reviewed date:06/22/2024 12:45:53 [...] - 38 plat 314 100 - 400 Glycohemoglobin A1c (in hous e) Reviewed date:06/22/2024 12:46:05 PM Interpretation: Performing Lab: Notes/Report: glycohemoglobin 8.3% 5 - 6.5 % P-Amylase Reviewed date:06/24/2024 08:26:05 AM Interpretation:26 Performing Lab: Notes/Report: Test performed by [facility] [address] [place] [address] , [address], [place] [address] Andrea Flores MD, Rent Control Office Manager CLIA: [id number] Amylase 26 28-100 U/L P-Comprehensive Metabolic Pa luis (CMP) Reviewed date:06/24/2024 08:26:05 AM Interpretation:gluc 264, Cr 1.58, gfr 34 Performing Lab: Notes/Report: Test performed by [facility] [address] [place] [address] , [address], [place] [address] Andrea Flores MD, Rent Control Office Manager CLIA: [id number] Sodium 140 135-145 mmol/L Potassium 4.6 3.5-5.3 [...] Interpretation:sensitive Performing Lab: Notes/Report: Test performed by [facility] [address] [place] [address] Andrea Flores MD, Rent Control Office Manager CLIA: [id number] Specimen Source Urine - Void Culture, Urine [...] Tobramycin S Trimeth/Sulfa S S=SUSCEPTIBLE I=INTERMEDIATE R=RESISTANT P-T4 Free (thyroxine) Reviewed date:06/24/2024 08:26:05 AM Interpretation:0.52 Performing Lab: Notes/Report: Test performed by [facility] [address] [place], [place] [address] [place] [address], [place] [address] Andrea Flores MD, Rent Control Office Manager CLIA: [id number] Thyroxine Free (free T4) 0.52 0.86-1.76 ng/dL P-Lipase Reviewed date:06/24/2024 08:26:05 AM Interpretation:9.9 Performing Lab: Notes/Report: Test performed by [facility] [address] , [place] [address] Andrea Flores MD, Rent Control Office Manager CLIA: [id number] Lipase 9.9 13.0-60.0 u/L P-Troponin I Reviewed date:06/24/2024 08:24:15 AM Interpretation: Performing Lab: Notes/Report: N-Ngwilyic-M Reviewed date:06/24/2024 08:26:05 AM Interpretation:24 Performing Lab: Notes/Report: Test performed by [facility] [address] , [place] [address] Andrea Flores MD, Rent Control Office Manager CLIA: [id number] Troponin-T 24 <6-18 ng/L Patients who are prescribed biotin may exhibit elevated troponin results. Please interpret results accordingly. P-TSH reflex to FT4 Reviewed date:06/24/2024 08:26:05 AM Interpretation:95.3 Performing Lab: Notes/Report: Test performed by [facility] [address] , [place] [address] Andrea Flores MD, Rent Control Office Manager CLIA: [id number] TSH reflex to FT4 95.30 0.43-5.25 mU/L P-Lipid Panel Reviewed date:10/24/2024 12:19:30 PM Interpretation:Normal Performing Lab: Notes/Report: Test performed by [facility] [address] [place] [address] , [address], [place] [address] Andrea Flores MD, Rent Control Office Manager CLIA: [id number] Cholesterol 167 <200 mg/dL Triglycerides 108 <150 [...] Interpretation:Normal Performing Lab: Notes/Report: Test performed by [place] [address] Andrea Flores MD, Rent Control Office Manager KRISIA: [id number] Phosphorus 4.2 2.5-4.5 mg/dL P-TSH Reviewed date:10/24/2024 12:19:30 PM Interpretation:7.02 Performing Lab: Notes/Report: Test performed by [facility] [address], [place] [address] Andrea Flores MD, Rent Control Office Manager CLIA: [id number] TSH 7.02 0.43-5.25 mU/L P-Microalbumin/Creatinine, R andom Urine Sample Reviewed date:10/24/2024 12:19:30 PM Interpretation:Album/Creat 65 Performing Lab: Notes/Report: Test performed by [facility] [address] , [address], [place] [address] Andrea Flores MD, Rent Control Office Manager CLIA: [id number] Albumin/Creatinine Ratio, Urine 65 0-30 ug/mg Microalbumin, Urine, Random 3.5 Creatinine, Urine 54.1 H-TSH Reviewed date:07/15/2024 10:22:34 AM Interpretation:79.3 Performing Lab: Notes/Report: TSH 79.30 0.465-4.68 uIU/mL H-Glycohemoglobin A1C Reviewed date:07/15/2024 10:22:34 AM Interpretation:8.2 Performing Lab: Notes/Report: HGBA1C 8.2 4.0-6.0 % < 6% Non-Diabetic Level < 7% Controlled Diabetic Level > 8% Poorly Controlled Diabetic Level H-CBC Reviewed date:07/18/2024 09:06:15 AM Interpretation: Performing [...] 1.2 0.0-0.4 K/mm3 BA# 0.1 0-0.2 K/mm3 H-BMP Reviewed date:07/18/2024 09:06:15 AM Interpretation: Performing [...] 95 74-100 mg/dl CA 8.2 8.4-10.2 mg/dl CBC Venipuncture (in house) Reviewed date:07/26/2024 03:18:46 PM Interpretation: Performing Lab: Notes/Report: P-Comprehensive Metabolic Pa luis (CMP) Reviewed date:07/22/2024 10:58:36 AM Interpretation:gluc 249, bun 25, Cr 1.23, gfr 46 Performing Lab: Notes/Report: Test performed by [facility] [employer] [address] [place] [address] , [address], [place] [address] Andrea Flores MD, Rent Control Office Manager CLIA: [id number] Sodium 139 135-145 mmol/L Potassium 4.5 3.5-5.3 [...] 0.3 <0.2-1.2 mg/dL A/G Ratio 1.3 1.1-2.5 P-Iron with Transferrin Satu ration Reviewed date:07/22/2024 10:58:35 AM Interpretation:Normal Performing Lab: Notes/Report: Test performed by [facility] [address] [place] [address] , [place] [address] Andrea Flores MD, Rent Control Office Manager CLIA: [id number] Iron 65 37-145 ug/dL Transferrin 244 200-360 mg/dL Transferrin Saturation Percentage 19 15-50 % P-Reticulocyte Count Reviewed date:07/22/2024 10:58:36 AM Interpretation:2.2 Performing Lab: Notes/Report: Test performed by [facility] [address] [place] [address] , [place] [address] Andrea Flores MD, Rent Control Office Manager CLIA: [id number] Reticulocyte Count 2.2 0.5-2.1 % Urinalysis - Inhouse Reviewed date:04/20/2024 12:19:49 PM Interpretation: Performing Lab: Notes/Report: Color/Clarity yellow/clear Leuk neg Nitrite neg Urobili 3.2 Protein neg pH 5.5 Blood neg Sp. Gr. 1.020 Ketone neg Bili neg Gluc 2+ Reason For Referral No Information Medications Medication [...] a day A ctive FreeStyle Jg 3 [place] - as directed 08/19/2024 Active Eliquis 5 [...] Problem Status W/U Status Risk Notes Problem 04088990 Essential (primary) hypertension (I10) Active confirmed Problem 24204918 Hyperkalemia (E87.5) Active confirmed Problem 84220073 Essential hypertension (I10) Active confirmed Problem 666214648 BMI 30.0-30.9,adult (Z68.30) Active confirmed Problem 738136710 OAB (overactive bladder) (N32.81) Active confirmed Problem 039054157853943 Type 2 diabetes mellitus with hypoglycemia without coma (E11.649) Active confirmed Problem 628202346 Mixed hyperlipidemia (E78.2) Active confirmed Problem 47891494 Chronic pulmonar y edema (J81.1) Active confirmed Problem 226332097 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.4) Active confirmed Problem 02181311 Type 2 diabetes mellitus without complication (E11.9) Active confirmed Problem 379287476 Acquired hypothyroidism (E03.9) Active confirmed Problem 986625762 Non morbid obesi ty due to excess calories (E66.09) Active confirmed Problem 42115541 Coronary artery disease involving elem coronary artery of elem heart without angina pectoris (I25.10) Active confirmed Problem 495806704 Anemia, unspecified type (D64.9) Active confirmed Problem 648814272 PAF (paroxysmal atrial fibrillation) (I48.0) Active confirmed Problem 83917241 Hyperlipidemia, unspecified hyperlipidemia type (E78.5) Active confirmed Problem 720632772114489 Atrial fibrillation with RVR (I48.91) Active confirmed Problem 386475607 Frequent falls (R29.6) Active confirmed Problem 495074473 TIA (transient ischemic attack) (G45.9) Active confirmed Problem 358353048 PAD (peripheral artery disease) (I73.9) Active confirmed Problem 096805068 Atherosclerosis of elem coronary artery without angina pectoris, unspecified whether elem or transplanted heart (I25.10) Active confirmed Problem 900334130 Bilateral caroti d artery stenosis (I65.23) Active confirmed Problem 88933302 Stenosis of carotid artery, unspecified laterality (I65.29) Active confirmed Problem 312906689 Non morbid obesi ty (E66.9) Active confirmed Problem 626548307 S/P coronary artery stent placement (Z95.5) Active confirmed Problem 692148107 Type 2 diabetes mellitus without complication, unspecified whether psychologist educational insulin use (E11.9) Active confirmed Problem 829699994 Uncontrolled typ e 2 diabetes mellitus with hyperglycemia (E11.65) Active confirmed Problem 206832929 Bilateral caroti d artery disease, unspecified type (I77.9) Active confirmed Problem 081434778 Carotid artery disease, unspecified laterality, unspecified type (I77.9) Active confirmed Problem 081540088 Stage 3a chronic kidney disease (N18.31) Active confirmed Problem 205963398 Urinary incontinence in female (R32) Active confirmed Vital Signs Heart Rate 79 /min 10/21/2024 Blood pressure diastolic 72 mm Hg 10/21/2024 Height 63 in 10/21/2024 Blood pressure systolic 122 mm Hg 10/21/2024 Weight 171.6 lbs 10/21/2024 BMI 30.39 kg/m2 10/21/2024 Encounters Encounter Location Date Provider Diagnosis [facility] [address] [place], [place] [id number] 04/20/2024 Cosme [place] OAB (overactive blad rocio) N32.81 [facility] [address] [place], [place] [id number] 06/22/2024 Cosme [place] Nausea and vomiting, unspecified vomiting type R11.2 ; Intermittent diarrhea R19.7 ; Urinary incontinence in female R32 ; Periumbilical pain R10.33 ; Type 2 diabetes mellitus without complication E11.9 and Acute UTI N39.0 [facility] [address] [place], [place] [id number] 07/21/2024 Cosme [place] Nausea and vomiting, unspecified vomiting type R11.2 ; Anemia, unspecified type D64.9 ; Type 2 diabetes mellitus with hypoglycemia without coma E11.649 and 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 (current) use of insulin Z79.4 [facility] [address] [place] [id number] 08/31/2024 Cosme [place] Open wound of right heel, initial encounter S91.301A [facility] [address] [place] [id number] 10/21/2024 Cosme [place] Type 2 diabetes darren itus without complication E11.9 ; Essential hypertension I10 ; Stage 3a chronic kidney disease N18.31 ; Anemia, unspecified type D64.9 ; Acquired hypothyroidism E03.9 and Hyperlipidemia, unspecified hyperlipidemia type E78.5 [facility] [address] [place] [id number] 06/24/2024 Cosme [place] [facility] [address] [place] [id number] 06/29/2024 Cosme [place] [facility] [address] [place] [id number] 07/22/2024 Cosme [place] [facility] [address] [place] [id number] 08/04/2024 Cosme [place] [facility] [address] [place] [id number] 08/16/2024 Cosme [place] [facility] [address] [place] [id number] 08/19/2024 Cosme [place] [facility] [address] [place] [id number] 08/19/2024 Cosme [place] [facility] [address] [place] [id number] 08/25/2024 Cosme [place] [facility] [address] [place] [id number] 09/08/2024 Cosme [place] [facility] [address] [place] [id number] 09/08/2024 Cosme [place] Type 2 diabetes darren itus with hypoglycemia without coma E11.649 [facility] [address] [place] [id number] 10/07/2024 Cosme [place] [facility] [address] [place] [id number] 10/24/2024 Cosme [place] Assessments Encounter Date Diagnosis (ICD Code) Assessment Notes Treatment Notes Treatment Clinical Notes Section Notes 04/20/2024 OAB (overactive bladder) (ICD-10 - N32.81) 06/22/2024 Intermittent diarrhea (ICD-10 - R19.7) 06/22/2024 Nausea and vomiting, unspecified vomiting type (ICD-10 - R11.2) 07/21/2024 Anemia, unspecified type (ICD-10 - D64.9) Patient may need to have an iron infusion 07/21/2024 Nausea and vomiting, unspecified vomiting type (ICD-10 - R11.2) 08/31/2024 Open wound of right heel, initial encounter (ICD-10 - S91.301A) 09/08/2024 Type 2 diabetes mellitus with hypoglycemia without coma (ICD-10 - E11.649) 10/21/2024 Essential hypertension (ICD-10 - I10) 10/21/2024 Type 2 diabetes mellitus without complication (ICD-10 - E11.9) 10/21/2024 Stage 3a chronic kidney disease (ICD-10 - N18.31) 06/22/2024 Urinary incontinence in female (ICD-10 - R32) 07/21/2024 Type 2 diabetes mellitus with hypoglycemia without coma (ICD-10 - E11.649) 07/21/2024 detention (current) use of insulin (ICD-10 - Z79.4) 06/22/2024 Periumbilical pain (ICD-10 - R10.33) 10/21/2024 Anemia, unspecified type (ICD-10 - D64.9) 10/21/2024 Acquired hypothyroidism (ICD-10 - E03.9) 06/22/2024 Type 2 diabetes mellitus without complication (ICD-10 - E11.9) 06/22/2024 Acute UTI (ICD-10 - N39.0) 10/21/2024 Hyperlipidemia, unspecified hyperlipidemia type (ICD-10 - E78.5) Plan Of Treatment Pending Test Test Name Order Date Cologuard 12/18/2021 Next Appt Details Provider Name:Cosme Amos ry, 02/20/2025 01:30:00 PM, [address], [address], [place], [place], [id number], Insurance Providers Payer Name Payer Address Payer Phone Subscriber Number Group Number Insured Name Patient Relationship to Insured Coverage Start Date Coverage End Date [employer] (MEDICAR E) [address] [address] [place] [address] [id number] Yesi Fernandez Self - patient is the [...]
--- OUTSIDE RECORDS SUMMARY | 2025-01-22 20:08 | XMS_ITS | Clinical Summary ---
Author Organization Healthcare Address [address] [place] [address] Care Team Providers Care Machine Shorthand Teacher Name Role Phone Cosme Garcia MD Primary Care Provider + [phone] Allergies No known active allergies Medications metFORMIN [...] lisinopril. 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 No heavy lifting (greater than 5 [...] A1C 07/25/2021 01/25/2021 [facility]-Depression Screening 06/10/2022 06/10/2021 [id number] Vaccine (1 - 20 24-25 season) 2024 [...] this topic Medical Devices Implanted Type Area Biology Specialist Device Identifier Shelf Expiration Date Model / Serial / Lot Stent Transcarotid System 9mm X 30mm - [id number] Implanted:Qty: 1 on 03/06/2021 by Leo Saleh MD at [facility]-[id number] 03/09/2023 SR-0930-C S / / [id number] Stent Transcarotid System 8mm X 30mm - [id number] Implanted:Qty: 1 on 10/22/2021 by Leo Saleh MD at [facility] Left: Carotid [facility]-[id number] 02/07/2024 SR-0830-C S / / [id number] Procedures Procedure Name Priority Date/Time Associated Diagnosis [...] Adults <6.0% Children and Adolescents <7.5% Source: Citizen Of [place] Diabetes Association. Standards of medical care in diabetes,2017. Diabetes Care.2017:40 (suppl 1):S1-S135. HbA1c assay performed by an ion-exchange chromatography method that is certified traceable to the DCCT. Bob Brown MD LAB BLOOD ORDERABLES Final Re sult Performing Organization Address City/[facility]/ZIP Co de Phone Number HEALTHCARE [facility] [address] [place] [address] * [place] Hepatitis C Antibody (01/25/2021 2:56 PM EDT) [facility] Hepatitis C Antibody Negative Negative 01/25/2021 5:15 PM EDT [facility] Blood Venous blood specimen / Unknown Venipuncture / Unknown 01/25/2021 2:56 PM EDT 01/25/2021 3:04 PM EDT Bob Brown MD LAB BLOOD ORDERABLES Final Re sult Performing Organization Address City/[facility]/ZIP Co de Phone Number [facility]ALTHCARE [facility] [address] [place] [address] from Last 3 Months or Most Recently Relevant to Health Maintenance Insurance [facility] Advance Directives Documents on File Type Date Recorded Patient Dental Billing Specialist Expl anation Advance Directives and Living Will 03/06/2021 Power of Practice Managers 01/25/2021 * Full Code (Latest Code Status on File) Date Activated Date Inactivated Comments 10/22/2021 10:32 AM 10/24/2021 5:12 PM Question Answer Comments Patient has decision-making capacity? Yes Care Teams Machine Shorthand Teacher Relationship Specialty Start Date End Date Cosme Garcia MD [address] [place] [address] PCP - General 01/24/21
[2025-01-22 20:12] LABS: Basophils # 0.1 K/mm3 (0-0.2); Basophils % 0.7 % (0.1-2.0); Eosinophils # 0.5 Kmm3 (0.0-0.4); Eosinophils % 6.2 % (0.1-12.0); Hematocrit 22.1 % (37.0-47.0); Immature Granulocytes # 0.03 10^3uL; Immature Granulocytes % 0.4 %; Lymphocytes # 1.8 K/mm3 (0.7-4.5); Lymphocytes % 21.6 % (10-50); Mean Corpuscular HGB Conc 30.3 g/dL (31.8-35.4); Mean Corpuscular Hemoglobin 27.7 pg (27.0-31.2); Mean Corpuscular Volume 91.3 fl (81-99); Mean Platelet Volume 9.7 fl (7.4-10.4); Monocytes # 0.6 K/mm3 (0.1-1.0); Monocytes % 7.4 % (1.7-9.3); Neutrophils # 5.2 K/mm3 (1.8-7.8); Neutrophils % 63.7 % (37.0-80.0); Nucleated Red Blood Cells # 0 10^3/uL; Nucleated Red Blood Cells % 0 %; Platelet Count 380 K/mm3 (142-424); Red Blood Count 2.42 M/mm3 (4.20-5.40); Red Cell Distribution Width 15.2 % (11.5-17.5); Red Cell Distribution Width-SD 50.7 fL; White Blood Count 8.2 K/mm3 (4.8-10.8)
[2025-01-22 20:15] LABS: Hemoglobin 6.7 g/dL (12.2-16.2)
--- NOTE | 2025-01-22 20:15 | PC.NURSE ---
critical called from lab. Hgb 6.7. PA notified
[2025-01-22 20:16] LABS: Chloride 105 mmol/L (98-107)
[2025-01-22 20:17] LABS: Potassium 4.7 mmoL/L (3.5-5.1); Sodium 137 mmol/L (136-145)
[2025-01-22 20:18] LABS: INR 0.94 (0.9-1.1); Prothrombin Time 10.5 seconds (10.1-12.5)
[2025-01-22 20:19] LABS: Alanine Aminotransferase 18 U/L (12-78); Anion Gap 13.7 mEq/L (5-15); Aspartate Amino Transferase 30 U/L (14-36); Blood Urea Nitrogen 36 mg/dl (7-17); Carbon Dioxide 23 mmol/L (22.0-30.0); Creatinine Clearance Estimated 49 mL/min (50-200); Estimated Glomerular Filt Rate 44 ml/min (>60); GFR (African American) 53 ML/MIN (>60); Magnesium 1.6 mg/dl (1.6-2.3)
[2025-01-22 20:20] LABS: Alkaline Phosphatase 118 U/L (38-126); Bilirubin,Total 0.3 mg/dl (0.2-1.3); Calcium 8.6 mg/dl (8.4-10.2); Total Protein,Serum 7.1 g/dl (6.3-8.2)
[2025-01-22 20:25] LABS: Glucose 423 mg/dl (74-100)
[2025-01-22 20:28] LABS: NT Pro Brain Natriuretic Pep. 823 pg/mL (0-450)
[2025-01-22 20:31] LABS: Troponin I 0.02 ng/ml (0.00-0.034)
[2025-01-22 20:34] LABS: Albumin/Globulin Ratio 1.3 (1.1-1.8); Globulin 3.1 g/dL (1.3-3.2)
--- NOTE | 2025-01-22 21:27 | CT_ITS ---
PROCEDURE INFORMATION: Exam: CTA Abdomen and Pelvis With Contrast Exam date and time: 01/22/2025 9:32 PM Age: 74 years old Clinical indication: Other: Drop in hemoglobin; Additional info: Drop in hemoglobin, on anticoagulants TECHNIQUE: Imaging protocol: Computed tomographic angiography of the abdomen and pelvis with contrast. Exam focused on the arteries. 3D rendering (Not supervised by radiologist): MIP and/or 3D reconstructed images were created by the technologist. Radiation optimization: All CT scans at this facility use at least one of these dose optimization techniques: automated exposure control; mA and/or kV adjustment per patient size (includes targeted exams where dose is matched to clinical indication); or iterative reconstruction. Contrast material: ISOVUE; Contrast volume: 80 ml; Contrast route: INTRAVENOUS (IV); COMPARISON: CT ANGIO ABDOMEN PELVIS 07/14/2024 2:15 PM FINDINGS: Aorta: No aortic aneurysm. No aortic dissection. Atherosclerotic calcification. Celiac trunk and mesenteric arteries: No occlusion or significant stenosis. Ostial atherosclerotic calcification. Renal arteries: No occlusion or significant stenosis. Ostial atherosclerotic calcification. Right iliac arteries: No occlusion or significant stenosis. Atherosclerotic calcification. Left iliac arteries: No occlusion or significant stenosis. Atherosclerotic calcification. Liver: No mass. Gallbladder and biliary ducts: Unremarkable. No calcified stones. No ductal dilation. Pancreas: Unremarkable. No mass. No ductal dilation. Spleen: Unremarkable. No splenomegaly. Adrenal glands: Unremarkable. No mass. Kidneys and ureters: Unremarkable. No solid mass. No nephroureterolithiasis. No hydronephrosis. Stomach and bowel: Unremarkable. No obstruction. No mucosal thickening. Appendix: No evidence of appendicitis. Intraperitoneal space: Unremarkable. No free air. No significant fluid collection. Lymph nodes: Unremarkable. No enlarged lymph nodes. Urinary bladder: Unremarkable. No mass. Reproductive: Unremarkable as visualized. Bones/joints: No acute fracture. Soft tissues: Unremarkable. IMPRESSION: Unremarkable CTA without obvious active source of hemorrhage identified.
[2025-01-22] MEDS: INSULIN HUMAN REGULAR 100 UNITS/ML 10ML VIAL 4 UNIT IV (21:32)
[2025-01-22] MEDS: SODIUM CHLORIDE 0.9% 10ML SYR (RAD ONLY) 10 ML IV (22:04)
[2025-01-22] MEDS: 0.9 % SODIUM CHLORIDE 50 ML VIAL IV (22:04)
[2025-01-22] MEDS: IOPAMIDOL-370 (76%);100ML BOTTLE 80 ML IV (22:04)
--- NOTE | 2025-01-22 22:10 | EXP.EVENT.NO ---
Know to inform that I was informed that there was a patient to admit on the floor went down the saw them did the interview talk with the family, came upstairs started to put orders in when mill house supervisor notified me that the patient was a Dr. Garcia patient and not mine. Have discontinued all orders that I have placed in
[2025-01-22 23:18] LABS: Troponin I 0.03 ng/ml (0.00-0.034)
[2025-01-23] VITALS (25 sets, daily range): BP systolic 107–167; BP diastolic 53–103; PULSE 80–110; RESP 14–20; TEMP 36.1–37; O2SAT 90–99; BMI 30.7; BMI 31.1
[2025-01-23 00:44] LABS: Microscopic, Urine URINE MICROSCOPIC (MICROSCOPIC)
[2025-01-23 00:55] LABS: Appearance,Urine CLEAR (Clear); Bilirubin,Urine Negative (Negative); Blood, Urine Negative (Negative); Color,Urine YELLOW (Yellow); Glucose,Urine (UA) 3+ (Negative); Ketones,Urine Negative (Negative); Leukocyte Esterase,Urine Negative (Negative); Nitrate,Urine Negative (Negative); Protein,Urine Negative (Negative); Urobilinogen,Urine 0.2 EU/dl (0.2)
[2025-01-23 01:34] LABS: Bacteria,Urine Trace /lpf; Squamous Epithelial Cell,Urine Occasional #/hpf (0-5); WBC,Urine Occasional #/hpf (0-3)
[2025-01-23 03:25] LABS: Troponin I 0.19 ng/ml (0.00-0.034)
[2025-01-23 04:19] LABS: Hematocrit 25.3 % (37.0-47.0)
[2025-01-23 05:08] LABS: Hemoglobin 8.3 g/dL (12.2-16.2)
--- NOTE | 2025-01-23 06:22 | PC.NURSE ---
Pt. was admitted overnight from the ED for chest pressure, shortness of breath and anemia. Pt alert and orientated x 4. Pt. on room air. when pt. admitted last night she recieved one unit of PRBC . Tolerated them with anxiety. Post transfusion H and H drawn. Pt. slept after the transfusion. During the transfusion Pt. became somewhat agitated and was very anxious. Dr. Morrow was paged twice with no call back to ask for order for anxiety. Pt. up to restroom with standby assist. Personal items and call petersen in reach. Safety measures in place.
[2025-01-23 07:16] LABS: POC Glucose,Bedside 367 (70-110)
--- NOTE | 2025-01-23 08:50 | P.HP_ITS ---
History of Present Illness *Admission Date: 01/22/25 *Reason for visit:: Chest pain/shortness of breath *History of present illness: Ms. Fernandez is a 74 year old female patient of [facility] who presented to [facility] ER last night with a 3 week history of shortness of breath and a 2 day history of chest pain/pressure. She states she saw cardiology at [facility] last week and had some tests ordered, CXR was done and was normal. She states her symptoms got progressively worse until finally she came to the ER last night. She has a history of CAD and PAD and A. fib. She states she had also been diagnosed with anemia and had been taking an oral iron supplement. Patient states she had a colonoscopy at [facility] in Jun but has never had an EGD. She does report some epigastric abd pain. [facility] Disclaimer: The information contained in this section may have been updated after the patient was seen, as this information can be updated by other users. Medical History Atherosclerosis of [place] arteries of extremities with intermittent claudication, bilateral legs Claudication Fall with injury Thyroid nodule Daytime somnolence Fatigue HTN (hypertension) Frequent falls Carotid artery disease PAD (peripheral artery disease) Elevated TSH Paroxysmal A-fib Coronary artery disease CHI (closed head injury) Atrial fibrillation with rapid ventricular response History of TIA (transient ischemic attack) Closed fracture of left patella Vocal cord paralysis Cerebrovascular accident Hyperlipidemia Hypertensive cardiovascular disease Diabetes mellitus Surgical History History of cardiac cath Stented coronary artery History of colonoscopy History of carotid endarterectomy Family History Diabetes Coronary artery disease Hyperlipidemia Heart attack Hypertension Stroke Social History Smoking Status: Never smoker alcohol intake: never substance use type: denies use current occupational status: retired Travel in the last 8 weeks?: None household members: family housing: house current occupational exposures/hazards: No caffeine: Yes Have you lived/traveled outside US in past 30 days?: No Contact w/someone who lives/traveled outside US past 30 days?: No Exposure to someone with infectious disease in past 14 days?: No Do you have a fever (greater than 100.4 F or 38 C)?: No Have you tested positive for COVID-19?: No Exposed to someone with COVID-19 in past 14 days?: No Do you have a sore throat?: No Do you have a cough?: No Do you have any weakness?: No Do you have any diarrhea?: No Are you experiencing any unusual bleeding?: No Do you have any muscle aches/pain?: No Do you have any abdominal pain?: No Are you experiencing loss of taste or smell?: No Other Medical History Have you received the Flu Vaccine for this season: No Have you received the Pneumonia Vaccine: No Review of Systems Constitutional Constitutional: Denies chills, Denies fever(s) and Denies frequent falls *Cardiovascular Cardiovascular: Reports as per HPI *Respiratory Respiratory: Reports as per HPI and Denies cough *Gastrointestinal Gastrointestinal: Reports abdominal pain (epigastric) and Reports change in stool character (dark color) *Genitourinary Genitourinary: Denies difficulty voiding *Musculoskeletal Musculoskeletal: Denies arthralgias *Neurologic Neurologic: Denies frequent falls Meds Home Medications and Allergies Home Medications ?Medication ?Instructions ?Recorded ?Confirmed ?Type metformin 1,000 mg tablet 1,000 mg PO BID 01/02/21 History atorvastatin 80 mg tablet 80 mg PO DAILY 02/03/2201/08 History blood sugar diagnostic (Accu-Chek #10 ea 02/03/2205/04 History Amanda Plus test strips) clopidogrel 75 mg tablet 75 mg PO DAILY 02/03/2201/08 History lancets (Accu-Chek Softclix #100 ea 02/03/22 01/16/25 History Lancets) pen needle, diabetic 31 gauge x #1,200 ea 02/03/2205/04 History 12/23 (Droplet Pen Needle) vitamin B12 500 mcg-folic acid 400 1 tab PO DAILY Supp lement 06/29/23 01/23/25 History mcg tablet insulin glargine 100 unit/mL (3 40 unit SQ HS 10/01/23 01/23/25 History mL) subcutaneous pen (Lantus Solostar U-100 Insulin) cholecalciferol (vitamin D3) 10 10 mcg PO DAILY 01/23/25 History mcg (400 unit) capsule empagliflozin 25 mg tablet 25 mg PO DAILY 06/27/24 History (Jardiance) apixaban 5 mg tablet (Eliquis) 5 mg PO BID 07/15/24 History oxybutynin chloride 5 mg 5 mg PO DAILY 07/15/2401/23 History tablet,extended release 24 hr pantoprazole 40 mg tablet,delayed 40 mg PO DAILY #30 t abs 07/16/24 01/23/25 Rx release (Protonix) famotidine 20 mg tablet 20 mg PO BID 08/09/24 History insulin aspart U-100 100 unit/mL See Protocol SQ ACHS PRN 08/09/24 01/23/25 History (3 mL) subcutaneous pen (Novolog Hyperglycemia FlexPen U-100 Insulin aspart) levothyroxine 100 mcg tablet 100 mcg PO DAILY 08/09/24 01/23/25 History metoprolol tartrate 25 mg tablet 12.5 mg (1/2 x 25 mg) PO BID #60 08/24/24 01/23/25 Rx tabs New Prescriptions to Start Prescriptions: Allergies Allergy/AdvReac Type Severity Reaction Status Date / Time amiodarone AdvReac Severe thyroid Verified 01/22/25 20:10 toxicity Exam Data for Last 24 hours Vital signs and Labs for Last 24 Hours: Temp Pulse Resp BP Pulse Ox O2 Del Method 98.1 F 84 14 132/57 L 92 L Room Air 01/23/25 04:00 01/23/25 04:00 01/23/25 04:00 01/23/25 04:00 01/23/25 04:00 01/23/25 08:02 Laboratory Results - last 24 hr 01/22/25 00:22: Urine Color Yellow, Urine Appearance Clear, Urine pH 7.0, Ur Specific [place] 1.010, Urine Protein Negative, Urine Glucose (UA) 3+, Urine Ketones Negative, Urine Blood Negative, Urine Nitrate Negative, Urine Bilirubin Negative, Urine Urobilinogen 0.2, Ur Leukocyte Esterase Negative, Urine RBC None, Urine WBC Occasional, Ur Squamous Epith Cells Occasional, Urine Bacteria Trace 01/22/25 19:50: WBC 8.2, RBC 2.42 L, Hgb 6.7 L*, Hct 22.1 L, MCV 91.3, MCH 27.7, MCHC 30.3 L, RDW 15.2, Plt Count 380, MPV 9.7, Neut % (Auto) 63.7, Lymph % (Auto) 21.6, [place] % (Auto) 7.4, Eos % (Auto) 6.2, Baso % (Auto) 0.7, Neut # (Auto) 5.2, Lymph # (Auto) 1.8, [place] # (Auto) 0.6, Eos # (Auto) 0.5 H, Baso # (Auto) 0.1, PT 10.5, INR 0.94, Sodium 137, Potassium 4.7, Chloride 105, Carbon Dioxide 23, Anion Gap 13.7, BUN 36 H, Creatinine 1.20 H, Estimated Creat Clear 49, Estimated GFR 44 L, Est GFR ( Amer) 53 L, Glucose 423 H*, Calcium 8.6, Magnesium 1.6, Total Bilirubin 0.3, AST 30, ALT 18, Alkaline Phosphatase 118, Troponin I 0.02, NT-Pro-B Natriuret Pep 823 H, Total Protein 7.1, Albumin 4.0, Globulin 3.1, Albumin/Globulin Ratio 1.3 01/22/25 21:15: Blood Type O Negative, Antibody Screen Negative, Crossmatch (AHG) See Detail 01/22/25 22:12: Troponin I 0.03 01/22/25 22:30: Blood Type Confirm O Negative 01/23/25 02:13: POC Glucose 367 H* 01/23/25 02:55: Troponin I 0.19 H 01/23/25 04:05: Hgb 8.3 L D, Hct 25.3 L I & O for Last 24 hours: Intake & Output 01/20/25 01/21/25 01/22/25 01/23/25 23:59 23:59 23:59 23:59 Intake Total 0 / 0 Output Total 950 / 950 Balance -950 / -950 Weight 170 lb 175 lb 8 oz Constitutional Constitutional: no acute distress *Routine HEENT Exam Head: Present normocephalic Eye: Present EOMI and PERRL ENT: Present mucous membranes moist *Routine Neck Exam Neck: Present supple; Absent lymphadenopathy *Routine Respiratory Exam Respiratory: Present CTA bilaterally *Routine Cardiovascular Exam Cardiovascular: Present irregularly irregular *Routine Abdominal Exam Abdominal: Present soft, normoactive bowel sounds and tenderness (epigastric) *Routine Rectal Exam Rectal:: deferred *Routine Genitalia Exam Genitalia:: deferred *Routine Extremities Exam Extremities: Absent cyanosis, clubbing or edema *Routine Skin Exam Skin: Present warm; Absent rash *Routine Neurological Exam Neurological: Present alert and oriented X3 Assessment and Plan *Assessment and plan (1) Chest pain: Status: Acute Category: Medical Code(s): R07.9 - Chest pain, unspecified (2) [place] (dyspnea on exertion): Status: Acute Category: Medical Code(s): R06.09 - Other forms of dyspnea (3) Anemia: Status: Acute Qualifiers: Anemia type: unspecified type Qualified Code(s): D64.9 - Anemia, unspecified Category: Medical Code(s): D64.9 - Anemia, unspecified (4) Fatigue: Status: Acute Qualifiers: Fatigue type: unspecified Qualified Code(s): R53.83 - Other fatigue Category: Medical Code(s): R53.83 - Other fatigue (5) Abdominal pain: Status: Acute Qualifiers: Abdominal location: generalized Qualified Code(s): R10.84 - Generalized abdominal pain Category: Medical Code(s): R10.9 - Unspecified abdominal pain (6) Hypothyroidism: Status: Acute Category: Medical Code(s): E03.9 - Hypothyroidism, unspecified (7) Carotid artery disease: Status: Acute Qualifiers: Carotid artery disease type: stenosis Laterality: bilateral Qualified Code(s): I65.23 - Occlusion and stenosis of bilateral carotid arteries Category: Medical Code(s): I77.9 - Disorder of arteries and arterioles, unspecified (8) PAD (peripheral artery disease): Status: Acute Category: Medical Code(s): I73.9 - Peripheral vascular disease, unspecified (9) Paroxysmal A-fib: Status: Acute Category: Medical Code(s): I48.0 - Paroxysmal atrial fibrillation (10) Coronary artery disease: Status: Acute Qualifiers: Associated angina: without angina Coronary Disease-Associated Artery/Lesion type: [place] artery [place] vs. transplanted heart: [place] heart Qualified Code(s): I25.10 - Atherosclerotic heart disease of [place] coronary artery without angina pectoris Category: Medical Code(s): I25.10 - Atherosclerotic heart disease of [place] coronary artery without angina pectoris (11) Status post coronary artery stent placement: Status: Acute Category: Surgical Code(s): Z95.5 - Presence of coronary angioplasty implant and graft (12) Diabetes mellitus: Status: Chronic Qualifiers: Diabetes mellitus complication status: with other specified complication Diabetes mellitus mcfp insulin use: unspecified long term care administrator insulin use status Diabetes mellitus type: type 2 Qualified Code(s): E11.69 - Type 2 diabetes mellitus with other specified complication Category: Medical Code(s): E11.9 - Type 2 diabetes mellitus without complications (13) Hyperlipidemia: Status: Acute Qualifiers: Hyperlipidemia type: mixed hyperlipidemia Qualified Code(s): E78.2 - Mixed hyperlipidemia Category: Medical Code(s): E78.5 - Hyperlipidemia, unspecified Plan Patient admitted for further evaluation and management of her symptomatic anemia. She received one unit of PRBCs last night. Will consult GI to evaluate for possible EGD. Keep patient NPO for now.
[2025-01-23 11:03] LABS: POC Glucose,Bedside 212 (70-110)
--- NOTE | 2025-01-23 15:04 | PC.NURSE ---
PT IS SITTING UP IN THE CHAIR. ALERT AND ORIENTED X4. PT HAS BEEN NPO SINCE MIDNIGHT FOR EGD THIS AFTERNOON. AMBULATES TO THE BATHROOM WITH 1 ASSIST. LUNG SOUNDS CLEAR. ABDOMEN SOFT/NON TENDER WITH ACTIVE BOWEL SOUNDS. VSS. WILL CONTINUE TO MONITOR.
--- NOTE | 2025-01-23 16:20 | EXP.HP ---
History of Present Illness *Admission Date: 01/22/25 *Reason for visit:: Anemia/epigastric pain *History of present illness: Ms. Fernandez is a 74 year old female who is admitted for dyspnea on exertion and did have moderate anemia which is new. She had a drop in hemoglobin from 11.4 in September 2024 to 6.7 yesterday. The patient does report some retrosternal chest discomfort. She had a colonoscopy in June 2023 but has never had an EGD. The patient has had dark stools/black stools but is on iron. [facility] Disclaimer: The information contained in this section may have been updated after the patient was seen, as this information can be updated by other users. Medical History Atherosclerosis of [place] arteries of extremities with intermittent claudication, bilateral legs Claudication Fall with injury Thyroid nodule Daytime somnolence Fatigue HTN (hypertension) Frequent falls Carotid artery disease PAD (peripheral artery disease) Elevated TSH Paroxysmal A-fib Coronary artery disease CHI (closed head injury) Atrial fibrillation with rapid ventricular response History of TIA (transient ischemic attack) Closed fracture of left patella Vocal cord paralysis Cerebrovascular accident Hyperlipidemia Hypertensive cardiovascular disease Diabetes mellitus Surgical History History of cardiac cath Stented coronary artery History of colonoscopy History of carotid endarterectomy Family History Other Coronary artery disease Diabetes Heart attack Hyperlipidemia Hypertension Stroke Social History Smoking Status: Never smoker alcohol intake: never substance use type: denies use current occupational status: retired Travel in the last 8 weeks?: None household members: family housing: house current occupational exposures/hazards: No caffeine: Yes Have you lived/traveled outside US in past 30 days?: No Contact w/someone who lives/traveled outside US past 30 days?: No Exposure to someone with infectious disease in past 14 days?: No Do you have a fever (greater than 100.4 F or 38 C)?: No Have you tested positive for COVID-19?: No Exposed to someone with COVID-19 in past 14 days?: No Do you have a sore throat?: No Do you have a cough?: No Do you have any weakness?: No Do you have any diarrhea?: No Are you experiencing any unusual bleeding?: No Do you have any muscle aches/pain?: No Do you have any abdominal pain?: No Are you experiencing loss of taste or smell?: No Other Medical History Have you received the Flu Vaccine for this season: No Have you received the Pneumonia Vaccine: No Review of Systems Review of Systems Review of systems (narrative): Negative Constitutional Constitutional: Denies frequent falls *Cardiovascular Comments: Negative *Gastrointestinal Comments: Negative *Genitourinary Comments: Negative *Musculoskeletal Comments: Negative *Neurologic Neurologic: Denies frequent falls Comments: Negative Meds Home Medications and Allergies Home Medications ?Medication ?Instructions ?Recorded ?Confirmed ?Type metformin 1,000 mg tablet 1,000 mg PO BID 01/02/21 01/23/25 History atorvastatin 80 mg tablet 80 mg PO DAILY 02/03/22 01/23/25 History blood sugar diagnostic (Accu-Chek #10 ea 02/03/22 01/16/25 History Amanda Plus test strips) clopidogrel 75 mg tablet 75 mg PO DAILY 02/03/22 01/23/25 History lancets (Accu-Chek Softclix #100 ea 02/03/22 01/16/25 History Lancets) pen needle, diabetic 31 gauge x #1,200 ea 02/03/22 01/16/25 History 12/23 (Droplet Pen Needle) vitamin B12 500 mcg-folic acid 400 1 tab PO DAILY Supplement 06/29/23 01/23/25 History mcg tablet insulin glargine 100 unit/mL (3 40 unit SQ HS 10/01/23 01/23/25 History mL) subcutaneous pen (Lantus Solostar U-100 Insulin) cholecalciferol (vitamin D3) 10 10 mcg PO DAILY 03/31/24 01/23/25 History mcg (400 unit) capsule empagliflozin 25 mg tablet 25 mg PO DAILY 06/27/24 01/23/25 History (Jardiance) apixaban 5 mg tablet (Eliquis) 5 mg PO BID 07/15/24 01/23/25 History oxybutynin chloride 5 mg 5 mg PO DAILY 07/15/24 01/23/25 History tablet,extended release 24 hr pantoprazole 40 mg tablet,delayed 40 mg PO DAILY #30 tabs 07/16/24 01/23/25 Rx release (Protonix) famotidine 20 mg tablet 20 mg PO BID 08/09/24 01/23/25 History insulin aspart U-100 100 unit/mL See Protocol SQ ACHS PRN 08/09/24 01/23/25 History (3 mL) subcutaneous pen (Novolog Hyperglycemia FlexPen U-100 Insulin aspart) levothyroxine 100 mcg tablet 100 mcg PO DAILY 08/09/24 01/23/25 History metoprolol tartrate 25 mg tablet 12.5 mg (1/2 x 25 mg) PO BID #60 08/24/24 01/23/25 Rx tabs New Prescriptions to Start Prescriptions: Allergies Allergy/AdvReac Type Severity Reaction Status Date / Time amiodarone AdvReac Severe thyroid Verified 01/22/25 20:10 toxicity Exam Data for Last 24 hours Vital signs and Labs for Last 24 Hours: Temp Pulse Resp BP Pulse Ox O2 Del Method 98.5 F 85 17 140/77 96 Room Air 01/23/25 15:45 01/23/25 15:45 01/23/25 15:45 01/23/25 15:45 01/23/25 15:45 01/23/25 15:45 Laboratory Results - last 24 hr 01/22/25 00:22: Urine Color Yellow, Urine Appearance Clear, Urine pH 7.0, Ur Specific [place] 1.010, Urine Protein Negative, Urine Glucose (UA) 3+, Urine Ketones Negative, Urine Blood Negative, Urine Nitrate Negative, Urine Bilirubin Negative, Urine Urobilinogen 0.2, Ur Leukocyte Esterase Negative, Urine RBC None, Urine WBC Occasional, Ur Squamous Epith Cells Occasional, Urine Bacteria Trace 01/22/25 19:50: WBC 8.2, RBC 2.42 L, Hgb 6.7 L*, Hct 22.1 L, MCV 91.3, MCH 27.7, MCHC 30.3 L, RDW 15.2, Plt Count 380, MPV 9.7, Neut % (Auto) 63.7, Lymph % (Auto) 21.6, [place] % (Auto) 7.4, Eos % (Auto) 6.2, Baso % (Auto) 0.7, Neut # (Auto) 5.2, Lymph # (Auto) 1.8, [place] # (Auto) 0.6, Eos # (Auto) 0.5 H, Baso # (Auto) 0.1, PT 10.5, INR 0.94, Sodium 137, Potassium 4.7, Chloride 105, Carbon Dioxide 23, Anion Gap 13.7, BUN 36 H, Creatinine 1.20 H, Estimated Creat Clear 49, Estimated GFR 44 L, Est GFR ( Amer) 53 L, Glucose 423 H*, Calcium 8.6, Magnesium 1.6, Total Bilirubin 0.3, AST 30, ALT 18, Alkaline Phosphatase 118, Troponin I 0.02, NT-Pro-B Natriuret Pep 823 H, Total Protein 7.1, Albumin 4.0, Globulin 3.1, Albumin/Globulin Ratio 1.3 01/22/25 21:15: Blood Type O Negative, Antibody Screen Negative, Crossmatch (AHG) See Detail 01/22/25 22:12: Troponin I 0.03 01/22/25 22:30: Blood Type Confirm O Negative 01/23/25 02:13: POC Glucose 367 H* 01/23/25 02:55: Troponin I 0.19 H 01/23/25 04:05: Hgb 8.3 L D, Hct 25.3 L 01/23/25 10:54: POC Glucose 212 H I & O for Last 24 hours: Intake & Output 01/20/25 01/21/25 01/22/25 01/23/25 23:59 23:59 23:59 23:59 Intake Total 0 / 0 Output Total 1450 / 1450 Balance -1450 / -1450 Weight 170 lb 175 lb 8 oz *Routine HEENT Exam Head: Present normocephalic Eye: Present EOMI and PERRL ENT: Present mucous membranes moist *Routine Neck Exam Neck: Present supple *Routine Respiratory Exam Respiratory: Present CTA bilaterally *Routine Cardiovascular Exam Cardiovascular: Present RRR *Routine Abdominal Exam Abdominal: Present soft and normoactive bowel sounds; Absent tenderness *Routine Rectal Exam Rectal:: deferred *Routine Genitalia Exam Genitalia:: deferred *Routine Extremities Exam Extremities: Absent cyanosis, clubbing or edema *Routine Skin Exam Skin: Present warm; Absent rash *Routine Neurological Exam Neurological: Present alert and oriented X3 Assessment and Plan *Assessment and plan (1) Acute anemia: Status: Acute Category: Medical Code(s): D64.9 - Anemia, unspecified (2) Chest pain: Status: Acute Category: Medical Code(s): R07.9 - Chest pain, unspecified (3) Black stools: Status: Acute Category: Medical Code(s): K92.1 - Melena Plan A/P: 1. Black stools, acute anemia is the preprocedural diagnosis. The patient will be anesthetized/sedated using MAC sedation. The patient has been seen and examined. Cardiac and lung assessment prior to the examination is stable. Proceed with planned diagnostic EGD.
--- NOTE | 2025-01-23 16:37 | P.PNANES_ITS ---
[facility] Disclaimer: The information contained in this section may have been updated after the patient was seen, as this information can be updated by other users. Medical History Atherosclerosis of [place] arteries of extremities with intermittent claudication, bilateral legs Claudication Fall with injury Thyroid nodule Daytime somnolence Fatigue HTN (hypertension) Frequent falls Carotid artery disease PAD (peripheral artery disease) Elevated TSH Paroxysmal A-fib Coronary artery disease CHI (closed head injury) Atrial fibrillation with rapid ventricular response History of TIA (transient ischemic attack) Closed fracture of left patella Vocal cord paralysis Cerebrovascular accident Hyperlipidemia Hypertensive cardiovascular disease Diabetes mellitus Surgical History History of cardiac cath Stented coronary artery History of colonoscopy History of carotid endarterectomy Family History Other Coronary artery disease Diabetes Heart attack Hyperlipidemia Hypertension Stroke Social History Smoking Status: Never smoker alcohol intake: never substance use type: denies use current occupational status: retired Travel in the last 8 weeks?: None household members: family housing: house current occupational exposures/hazards: No caffeine: Yes Have you lived/traveled outside [place] in past 30 days?: No Contact w/someone who lives/traveled outside US past 30 days?: No Exposure to someone with infectious disease in past 14 days?: No Do you have a fever (greater than 100.4 F or 38 C)?: No Have you tested positive for COVID-19?: No Exposed to someone with COVID-19 in past 14 days?: No Do you have a sore throat?: No Do you have a cough?: No Do you have any weakness?: No Do you have any diarrhea?: No Are you experiencing any unusual bleeding?: No Do you have any muscle aches/pain?: No Do you have any abdominal pain?: No Are you experiencing loss of taste or smell?: No [facility] Anesthesia Checklist Patient Identification Patient Identification: Arm Band and Verbal (Name & ) Structural Data Admitted From: Inpatient Planned Operative Procedure/s: EGD Consent for Planned Operative Procedure(s) Verified: Yes Verified Documents: Surgical Consent and History and Physical NPO Status Verified Time NPO: 00:00 Additional verifications Anesthesia Reactions: Yes (low BP) Hx Blood Transfusions: No Blood Transfusion Reaction: No Airway Assessment Mallampati Score:: Class II Dentition: Edentulous Neurological Assessment Level of Consciousness: Awake, Alert and Appropriate Hx Seizures: No Anesthesia Plan Anesthesia Risk discussed: Yes ASA Class: III Anesthesia Type: MAC
--- NOTE | 2025-01-23 16:40 | HMH.PROCNOTE ---
[facility] Procedure Note Date: 01/23/25 Time: 16:44 Procedure Note:: Upper Endoscopy Procedure Report: Esophagogastroduodenoscopy with cold biopsies Endoscopost: Ousmane Lewis II, MD Referring Physician: Cosme Garcia MD Date of Procedure: January 23, 2025 Equipment: Olympus GIF 190 standard upper endoscope Sedation: MAC sedation Indications: Mrs. Fernandez is a 74-year-old female with dyspnea on exertion. She does have a history of coronary artery disease and has had 5 coronary stents placed. She did present with acute anemia and her hemoglobin and hematocrit were 6.7 and 22.1. This was a decline from her labs in September 2024 at which time her hemoglobin hematocrit were 11.4 and 35.4. The patient has had some black or dark stools but is on iron. She did present with chest pain and her troponin level was 0.02 with a BNP of 823. Her TSH in August 2024 was 29.7. The patient is on levothyroxine. She reports no NSAIDs. She is on clopidogrel and Eliquis. The patient's MCV is normocytic. I do not see any recent iron studies. The patient did have a colonoscopy in June 2023 (Ronn Goodman M.D.) and had 2 hyperplastic polyps removed. She has never had an upper endoscopy. Procedure: Prior to the procedure, a history and physical exam was performed, and patient's medications and allergies were reviewed. The risks, benefits and alternatives of the sedation and procedure were discussed with the patient. All questions were answered and informed consent was obtained. The patient was brought to the procedure room. Patient identification and proposed procedure were verified by the physician and the nurse. The patient was placed in a left lateral decubitus position and the scope was passed under direct vision. Throughout the procedure, the patient's blood pressure, pulse, and oxygen saturations were monitored continuously. The upper GI endoscopy was accomplished without difficulty. The patient tolerated the procedure well. Findings: The scope was passed directly into the upper esophagus and advanced to the third portion of the duodenum. The post bulbar duodenum and duodenal bulb were normal with normal mucosa and conniventes. The scope was withdrawn through a normal duodenal bulb and pylorus into the stomach. There was some mild antral gastropathy but the body and fundus of the stomach were normal. There were no angiodysplasias/AVMs, ulcers, erosions or hiatal hernia. Cold biopsies were taken from the incisura/lesser curvature to rule out H. pylori. The scope was then withdrawn into the esophagus. There was no evidence of reflux esophagitis or Kaur's. The remainder of the esophageal mucosa was normal. Impression: 1. Mild antral gastropathy otherwise normal upper endoscopy Plan: There was certainly no clear source for the patient's acute anemia or GI bleeding or noncardiac chest pain. I am going to obtain Hemoccult testing as well as iron studies.
[2025-01-23] MEDS: humaLOG 100 UNITS/ML 10ML VIAL (SSI) SUBCUT (20:42)
[2025-01-23] MEDS: FAMOTIDINE 20MG TABLET 20 MG PO (20:45)
[2025-01-23] MEDS: METOPROLOL TARTRATE 25MG TABLET 12.5 MG PO (20:45)
[2025-01-23 20:58] LABS: POC Glucose,Bedside 447 (70-110)
--- NOTE | 2025-01-23 23:23 | PC.NURSE ---
Pt refused having a bed alarm, pt educated on importance of bed alarm for safety.
[2025-01-24] VITALS (7 sets, daily range): BP systolic 110–146; BP diastolic 53–75; PULSE 71–90; RESP 16–19; TEMP 36.7–37.2; O2SAT 96–97; BMI 30.5
--- NOTE | 2025-01-24 04:16 | PC.NURSE ---
Pt is A&Ox4. Pt is on RA. Pt has a BBB on telemetry. Pt's blood glucose was 447 at 2100 and she was covered with 20 units of Humalog. Pt reported that she does take long acting insulin at home, provider was called and awaiting a response. Pt has not shown any signs of bleeding this shift. Pt did voice that she refused to use her bed alarm. Pt not voicing any concerns at this time. Pt resting in bed, call light is within reach. Plan of care ongoing.
--- NOTE | 2025-01-24 05:00 | PC.NURSE ---
Pt has home meds in omni and insulin in pt fridge.
[2025-01-24] MEDS: humaLOG 100 UNITS/ML 10ML VIAL (SSI) SUBCUT ×3 (06:18→20:19)
[2025-01-24 06:38] LABS: Basophils % 0.4 % (0.1-2.0); Eosinophils # 0.5 Kmm3 (0.0-0.4); Eosinophils % 5.8 % (0.1-12.0); Hematocrit 25.3 % (37.0-47.0); Immature Granulocytes # 0.04 10^3uL; Immature Granulocytes % 0.5 %; Lymphocytes # 1.6 K/mm3 (0.7-4.5); Lymphocytes % 19.2 % (10-50); Mean Corpuscular HGB Conc 31.6 g/dL (31.8-35.4); Mean Corpuscular Hemoglobin 28.1 pg (27.0-31.2); Mean Corpuscular Volume 88.8 fl (81-99); Mean Platelet Volume 9.7 fl (7.4-10.4); Monocytes # 0.8 K/mm3 (0.1-1.0); Monocytes % 9.1 % (1.7-9.3); Neutrophils # 5.4 K/mm3 (1.8-7.8); Nucleated Red Blood Cells # 0 10^3/uL; Nucleated Red Blood Cells % 0 %; Platelet Count 336 K/mm3 (142-424); Red Blood Count 2.85 M/mm3 (4.20-5.40); Red Cell Distribution Width 15.5 % (11.5-17.5); Red Cell Distribution Width-SD 49.8 fL; White Blood Count 8.2 K/mm3 (4.8-10.8)
[2025-01-24 06:50] LABS: POC Glucose,Bedside 226 (70-110)
[2025-01-24 07:12] LABS: Troponin I 0.56 ng/ml (0.00-0.034)
[2025-01-24 07:28] LABS: Chloride 108 mmol/L (98-107)
[2025-01-24 07:29] LABS: Potassium 4.7 mmoL/L (3.5-5.1); Sodium 140 mmol/L (136-145)
[2025-01-24 07:31] LABS: Blood Urea Nitrogen 27 mg/dl (7-17); Creatinine Clearance Estimated 50 mL/min (50-200); Estimated Glomerular Filt Rate 44 ml/min (>60); GFR (African American) 53 ML/MIN (>60)
[2025-01-24 07:32] LABS: Anion Gap 12.7 mEq/L (5-15); Calcium 8.6 mg/dl (8.4-10.2); Carbon Dioxide 24 mmol/L (22.0-30.0); Glucose 202 mg/dl (74-100)
[2025-01-24 07:48] LABS: Iron 28 ug/dL (37-170)
[2025-01-24 07:57] LABS: Total Iron Binding Capacity 335 ug/dL (265-497)
--- NOTE | 2025-01-24 08:08 | EXP.PN ---
Subjective *Date: 01/24/25 *Time: 08:08 Interval history: Patient doing well this morning. Is concerned about her anemia and what is causing this. Exam Data for Last 24 hours Vital signs and Labs for Last 24 Hours: Temp Pulse Resp BP Pulse Ox O2 Del Method 98.3 F 86 16 128/53 L 96 Room Air 01/24/25 04:00 01/24/25 04:00 01/24/25 04:00 01/24/25 04:00 01/24/25 04:00 01/24/25 06:40 Laboratory Results - last 24 hr 01/23/25 10:54: POC Glucose 212 H 01/23/25 20:41: POC Glucose 447 H* 01/24/25 05:45: WBC 8.2, RBC 2.85 L, Hgb 8.0 L, Hct 25.3 L, MCV 88.8, MCH 28.1, MCHC 31.6 L, RDW 15.5, Plt Count 336, MPV 9.7, Neut % (Auto) 65.0, Lymph % (Auto) 19.2, [place] % (Auto) 9.1, Eos % (Auto) 5.8, Baso % (Auto) 0.4, Neut # (Auto) 5.4, Lymph # (Auto) 1.6, [place] # (Auto) 0.8, Eos # (Auto) 0.5 H, Baso # (Auto) 0.0, Sodium 140, Potassium 4.7, Chloride 108 H, Carbon Dioxide 24, Anion Gap 12.7, BUN 27 H, Creatinine 1.20 H, Estimated Creat Clear 50, Estimated GFR 44 L, Est GFR ( Amer) 53 L, Glucose 202 H, Calcium 8.6, Iron 28 L, TIBC 335, Iron Saturation 8.52995 L, Troponin I 0.56 H 01/24/25 06:06: POC Glucose 226 H I & O for Last 24 hours: Intake & Output 01/21/25 01/22/25 01/23/25 01/24/25 23:59 23:59 23:59 23:59 Intake Total 240 / 240 Output Total 1800 / 2049 450 / 450 Balance -1560 / -1810 -450 / -450 Weight 170 lb 175 lb 8 oz 172 lb 8 oz Assessment and Plan *Assessment and plan (1) Iron deficiency anemia: Status: Acute Category: Medical Code(s): D50.9 - Iron deficiency anemia, unspecified (2) Black stools: Status: Acute Category: Medical Code(s): K92.1 - Melena Plan 1. Iron deficiency anemia. I would like for her to have parenteral iron infusion with Venofer before discharge. Her EGD did not show any etiology for her iron deficiency. The patient did have a positive Cologuard in June 2023 and had colonoscopy with Dr. Ronn Goodman M.D. Reading his report, there was spasticity/tortuosity and difficulty visualization. He even mention barium enema and short interval colonoscopy. I would try to see if we can collect Hemoccult testing prior to discharge. If she is Hemoccult positive, I would consider colonoscopy prior to considering PillCam. I did discuss this with the patient. I will also check B12 and folate levels.
[2025-01-24 08:24] LABS: Ferritin 9.24 ng/ml (11.1-264)
--- NOTE | 2025-01-24 08:38 | P.PN_ITS ---
Subjective *Date: 01/24/25 *Time: 08:38 Interval history: Patient with no new complaints today. Medical Exam Vital signs and Labs for Last 24 Hours: Vital Signs Temp Pulse Pulse Resp BP Pulse Ox O2 Del Method 01/24/25 08:00 98.0 F 85 16 146/75 H 97 01/24/25 06:40 Room Air 01/24/25 05:00 Room Air 01/24/25 04:00 98.3 F 86 16 128/53 L 96 Room Air 01/24/25 04:00 80 01/24/25 03:00 Room Air 01/24/25 01:00 Room Air 01/24/25 00:00 99.0 F 86 16 110/65 96 Room Air 01/24/25 00:00 90 01/23/25 23:00 Room Air 01/23/25 21:00 Room Air 01/23/25 20:00 100 H 01/23/25 19:40 96 H 16 117/53 L 90 L Room Air 01/23/25 19:10 93 H 16 137/66 94 L Room Air 01/23/25 18:51 Room Air 01/23/25 18:40 107 H 16 146/82 H 95 Room Air 01/23/25 18:25 108 H 16 159/81 H 95 Room Air 01/23/25 18:10 93 H 20 167/103 H 95 Room Air 01/23/25 17:55 91 H 16 163/89 H 97 Room Air 01/23/25 17:40 97.9 F 93 H 16 148/88 H 96 Room Air 01/23/25 17:11 97.0 F L 81 16 163/78 H 97 Room Air 01/23/25 17:01 83 20 143/75 H 95 Room Air 01/23/25 16:51 97.0 F L 86 20 128/68 93 L Room Air 01/23/25 15:45 98.5 F 85 17 140/77 96 Room Air 01/23/25 14:32 Room Air 01/23/25 12:39 Room Air 01/23/25 12:19 98.5 F 85 16 140/77 96 Room Air 01/23/25 12:00 80 01/23/25 12:00 98.2 F 82 18 150/77 H 98 Room Air 01/23/25 11:00 Room Air Intake and Output 01/23/25 01/24/25 01/24/25 23:59 07:59 15:59 Intake Total 240 / 240 350 / 350 Output Total 2049 450 / 850 400 / 850 Balance -110 / -1810 -450 / -500 -50 / -500 Intake: Intake, Oral Amount 240 / 240 350 / 350 Output: Output, Urine Amount 2049 450 / 850 400 / 850 Other: Number of Unmeasured Voids 0 0 0 Weight 172 lb 8 oz Patient Weight 01/24/25 23:59 Weight 172 lb 8 oz Laboratory Results - last 24 hr 01/23/25 10:54: POC Glucose 212 H 01/23/25 20:41: POC Glucose 447 H* 01/24/25 05:45: WBC 8.2, RBC 2.85 L, Hgb 8.0 L, Hct 25.3 L, MCV 88.8, MCH 28.1, MCHC 31.6 L, RDW 15.5, Plt Count 336, MPV 9.7, Neut % (Auto) 65.0, Lymph % (Auto) 19.2, [place] % (Auto) 9.1, Eos % (Auto) 5.8, Baso % (Auto) 0.4, Neut # (Auto) 5.4, Lymph # (Auto) 1.6, [place] # (Auto) 0.8, Eos # (Auto) 0.5 H, Baso # (Auto) 0.0, Sodium 140, Potassium 4.7, Chloride 108 H, Carbon Dioxide 24, Anion Gap 12.7, BUN 27 H, Creatinine 1.20 H, Estimated Creat Clear 50, Estimated GFR 44 L, Est GFR ( Amer) 53 L, Glucose 202 H, Calcium 8.6, Iron 28 L, TIBC 335, Iron Saturation 8.24866 L, Ferritin 9.24 L, Troponin I 0.56 H 01/24/25 06:06: POC Glucose 226 H I & O for Labs for Last 24 Hours: Intake & Output 01/21/25 01/22/25 01/23/25 01/24/25 23:59 23:59 23:59 23:59 Intake Total 240 / 240 350 / 350 Output Total 1799 850 / 850 Balance -1560 / -1810 -500 / -500 Weight 170 lb 175 lb 8 oz 172 lb 8 oz Constitutional: Present no acute distress Respiratory: Present normal respiratory effort Cardiac: Present Reg Rate and Rhythm GI: Present normal bowel sounds; Absent tenderness Extremities: Present normal inspection and full ROM Skin: Present intact; Absent erythema Neuro: Present Grossly Intact and moves all extremities Assessment and Plan *Assessment and plan (1) Chest pain: Status: Acute Category: Medical Code(s): R07.9 - Chest pain, unspecified (2) [place] (dyspnea on exertion): Status: Acute Category: Medical Code(s): R06.09 - Other forms of dyspnea (3) Anemia: Status: Acute Qualifiers: Anemia type: unspecified type Qualified Code(s): D64.9 - Anemia, unspecified Category: Medical Code(s): D64.9 - Anemia, unspecified (4) Fatigue: Status: Acute Qualifiers: Fatigue type: unspecified Qualified Code(s): R53.83 - Other fatigue Category: Medical Code(s): R53.83 - Other fatigue (5) Abdominal pain: Status: Acute Qualifiers: Abdominal location: generalized Qualified Code(s): R10.84 - Generalized abdominal pain Category: Medical Code(s): R10.9 - Unspecified abdominal pain (6) Hypothyroidism: Status: Acute Category: Medical Code(s): E03.9 - Hypothyroidism, unspecified (7) Carotid artery disease: Status: Acute Qualifiers: Carotid artery disease type: stenosis Laterality: bilateral Qualified Code(s): I65.23 - Occlusion and stenosis of bilateral carotid arteries Category: Medical Code(s): I77.9 - Disorder of arteries and arterioles, unspecified (8) PAD (peripheral artery disease): Status: Acute Category: Medical Code(s): I73.9 - Peripheral vascular disease, unspecified (9) Paroxysmal A-fib: Status: Acute Category: Medical Code(s): I48.0 - Paroxysmal atrial fibrillation (10) Coronary artery disease: Status: Acute Qualifiers: Coronary Disease-Associated Artery/Lesion type: [place] artery [place] vs. transplanted heart: [place] heart Associated angina: without angina Q ualified Code(s): I25.10 - Atherosclerotic heart disease of [place] coronary artery without angina pectoris Category: Medical Code(s): I25.10 - Atherosclerotic heart disease of [place] coronary artery without angina pectoris (11) Status post coronary artery stent placement: Status: Acute Category: Surgical Code(s): Z95.5 - Presence of coronary angioplasty implant and graft (12) Diabetes mellitus: Status: Chronic Qualifiers: Diabetes mellitus complication status: with other specified complication Diabetes mellitus long term care social worker insulin use: unspecified long-term insulin use status Diabetes mellitus type: type 2 Qualified Code(s): E11.69 - Type 2 diabetes mellitus with other specified complication Category: Medical Code(s): E11.9 - Type 2 diabetes mellitus without complications (13) Hyperlipidemia: Status: Acute Qualifiers: Hyperlipidemia type: mixed hyperlipidemia Qualified Code(s): E78.2 - Mixed hyperlipidemia Category: Medical Code(s): E78.5 - Hyperlipidemia, unspecified (14) Iron deficiency anemia: Status: Acute Category: Medical Code(s): D50.9 - Iron deficiency anemia, unspecified (15) Black stools: Status: Acute Category: Medical Code(s): K92.1 - Melena (16) Epigastric pain: Status: Acute Category: Medical Code(s): R10.13 - Epigastric pain (17) Acute anemia: Status: Acute Category: Medical Code(s): D64.9 - Anemia, unspecified (18) Elevated troponin: Status: Resolved Category: Medical Code(s): R79.89 - Other specified abnormal findings of blood chemistry Plan H/H is stable, GI note reviewed, troponin is elevated, prelim echo report shows low LV EF at 45%, plan cardiology consultation today.
[2025-01-24] MEDS: IRON SUCROSE COMPLEX 200 MG in 0.9 % SODIUM CHLORIDE 100 ML 220 MG IV (09:07)
[2025-01-24] MEDS: FAMOTIDINE 20MG TABLET 20 MG PO (09:08)
[2025-01-24] MEDS: OXYBUTYNIN 5MG TAB 5 MG PO ×2 (09:08→20:22)
[2025-01-24] MEDS: METOPROLOL TARTRATE 25MG TABLET 12.5 MG PO ×2 (09:08→20:22)
[2025-01-24] MEDS: METFORMIN 500MG TABLET 1000 MG PO ×2 (09:08→18:16)
--- NOTE | 2025-01-24 09:18 | PC.NURSE ---
This RN educated pt on high fall risk. Pt continues to refuse bed/chair alarm. Pt educated on safety and informed to press call light for assistance when ambulating. Pt verbalizes understanding.
[2025-01-24 09:41] LABS: Vitamin B12 791 pg/mL (239-931)
[2025-01-24 09:59] LABS: Folate 7.79 ng/mL
--- NOTE | 2025-01-24 10:07 | EXP.CARD.CON ---
History of Present Illness History of Present Illness Consult date: 01/24/25 Requesting physician: Cosme Garcia Consult reason: chest pain and shortness of breath Chief complaint: SOB, CP History of present illness: This is a 74-year-old white female who presented to the emergency department with complaints of shortness of breath and chest pain. She has been having worsening shortness of breath over the last 3 weeks. She was recently evaluated in cardiology clinic and set up for repeat left cardiac catheterization and bilateral iliofemoral runoff. She states that prior to admission she had a 2-day history of chest pain/pressure. She states it is in the substernal aspect of her chest and radiated down both arms. She states that the chest pain was new for her so she decided to come into the emergency department. She states that she has just been extremely fatigued and so short of breath that she has difficulty walking even 50 feet which is very unlike her. Once arrived at the emergency department she was found to be profoundly anemic with a hemoglobin of 6.7. She has underwent EGD which showed no signs of bleeding. She has gotten 1 unit of packed red blood cells and is getting IV iron today. She states her chest pain has resolved. Her shortness of breath has improved and feeling much better. Denies lower extremity edema. Denies fever, chills, nausea, vomiting or diarrhea. [facility] Disclaimer: The information contained in this section may have been updated after the patient was seen, as this information can be updated by other users. Medical History (Updated 01/24/25 @ 10:18 by Pam Pérez APRN) Elevated troponin Non-STEMI (non-ST elevated myocardial infarction) Atherosclerosis of [place] arteries of extremities with intermittent claudication, bilateral legs Claudication Fall with injury Thyroid nodule Daytime somnolence Fatigue HTN (hypertension) Frequent falls Carotid artery disease PAD (peripheral artery disease) Elevated TSH Paroxysmal A-fib Coronary artery disease CHI (closed head injury) Atrial fibrillation with rapid ventricular response History of TIA (transient ischemic attack) Closed fracture of left patella Vocal cord paralysis Cerebrovascular accident Hyperlipidemia Hypertensive cardiovascular disease Diabetes mellitus Surgical History History of cardiac cath Stented coronary artery History of colonoscopy History of carotid endarterectomy Family History Other Coronary artery disease Diabetes Heart attack Hyperlipidemia Hypertension Stroke Social History Smoking Status: Never smoker alcohol intake: never substance use type: denies use current occupational status: retired Travel in the last 8 weeks?: None household members: family housing: house current occupational exposures/hazards: No caffeine: Yes Review of Systems Review of Systems Review of systems:: pertinent systems reviewed and negative unless documented below Constitutional Constitutional: Reports system reviewed and no additional complaints, except as documented, Reports fatigue, Denies frequent falls and Reports lethargy Eyes Eyes: Reports system reviewed and no additional complaints, except as documented ENT Ears, Nose, Mouth, and Throat: Reports system reviewed and no additional complaints, except as documented *Cardiovascular Cardiovascular: Reports system reviewed and no additional complaints, except as documented, Reports chest pain, Reports chest pain at rest, Reports chest pain with activity, Reports dyspnea and Reports dyspnea on exertion *Respiratory Respiratory: Reports system reviewed and no additional complaints, except as documented, Reports dyspnea and Reports dyspnea on exertion *Gastrointestinal Gastrointestinal: Reports system reviewed and no additional complaints, except as documented *Genitourinary Genitourinary: Reports system reviewed and no additional complaints, except as documented *Musculoskeletal Musculoskeletal: Reports system reviewed and no additional complaints, except as documented Integumentary/Breasts Skin/Breast: Reports system reviewed and no additional complaints, except as documented *Neurologic Neurologic: Reports system reviewed and no additional complaints, except as documented and Denies frequent falls Psychiatric Psychiatric: Reports system reviewed and no additional complaints, except as documented Endocrine Endocrine: Reports system reviewed and no additional complaints, except as documented and Reports fatigue Hematologic/Lymphatic Hematologic/Lymphatic: Reports system reviewed and no additional complaints, except as documented Allergic/Immunologic Allergic/Immunologic: Reports system reviewed and no additional complaints, except as documented Exam Data for Last 24 hours Vital signs and Labs for Last 24 Hours: Temp Pulse Resp BP Pulse Ox O2 Del Method 98.0 F 85 16 146/75 H 97 Room Air 01/24/25 08:00 01/24/25 08:00 01/24/25 08:00 01/24/25 08:00 01/24/25 08:00 01/24/25 06:40 Laboratory Results - last 24 hr 01/23/25 10:54: POC Glucose 212 H 01/23/25 20:41: POC Glucose 447 H* 01/24/25 05:45: WBC 8.2, RBC 2.85 L, Hgb 8.0 L, Hct 25.3 L, MCV 88.8, MCH 28.1, MCHC 31.6 L, RDW 15.5, Plt Count 336, MPV 9.7, Neut % (Auto) 65.0, Lymph % (Auto) 19.2, [place] % (Auto) 9.1, Eos % (Auto) 5.8, Baso % (Auto) 0.4, Neut # (Auto) 5.4, Lymph # (Auto) 1.6, [place] # (Auto) 0.8, Eos # (Auto) 0.5 H, Baso # (Auto) 0.0, Sodium 140, Potassium 4.7, Chloride 108 H, Carbon Dioxide 24, Anion Gap 12.7, BUN 27 H, Creatinine 1.20 H, Estimated Creat Clear 50, Estimated GFR 44 L, Est GFR ( Amer) 53 L, Glucose 202 H, Calcium 8.6, Iron 28 L, TIBC 335, Iron Saturation 8.39221 L, Ferritin 9.24 L, Troponin I 0.56 H 01/24/25 06:06: POC Glucose 226 H 01/24/25 08:20: Vitamin B12 791, Folate 7.79 I & O for Last 24 hours: Intake & Output 01/21/25 01/22/25 01/23/25 01/24/25 23:59 23:59 23:59 23:59 Intake Total 240 / 240 350 / 350 Output Total 1799 / 2049 850 / 850 Balance -1560 / -1810 -500 / -500 Weight 170 lb 175 lb 8 oz 172 lb 8 oz Narrative: EKG is sinus tachycardia with a rate of 114 bpm and left bundle branch block. Constitutional Constitutional: no acute distress and obese *Routine HEENT Exam Head: Present normocephalic and atraumatic ENT: Present mucous membranes moist *Routine Neck Exam Neck: Present supple, full ROM and normal carotid upstroke; Absent JVD, carotid bruit or lymphadenopathy *Routine Respiratory Exam Respiratory: Present CTA bilaterally, normal respiratory effort, able to speak in complete sentences and symmetric chest movement *Routine Cardiovascular Exam Cardiovascular: Present RRR, Normal S1 and Normal S2; Absent murmur or gallop *Routine Abdominal Exam Abdominal: Present soft and normoactive bowel sounds; Absent tenderness, distended or organomegaly *Routine Extremities Exam Extremities: Present full ROM, pulses intact and normal capillary refill; Absent cyanosis, clubbing or edema *Routine Skin Exam Skin: Present intact and warm; Absent erythema *Routine Neurological Exam Neurological: Present alert, oriented X3 and CN II-XII intact; Absent sensory deficit or motor deficit Routine Psychiatric Exam Psychiatric: Present normal affect Meds Home Medications and Allergies Home Medications ?Medication ?Instructions ?Recorded ?Confirmed ?Type metformin 1,000 mg tablet 1,000 mg PO BID 01/02/21 01/23/25 History atorvastatin 80 mg tablet 80 mg PO DAILY 02/03/22 01/23/25 History blood sugar diagnostic (Accu-Chek #10 ea 02/03/22 01/23/25 History Amanda Plus test strips) clopidogrel 75 mg tablet 75 mg PO DAILY 02/03/22 01/23/25 History lancets (Accu-Chek Softclix #100 ea 02/03/22 01/23/25 History Lancets) pen needle, diabetic 31 gauge x #1,200 ea 02/03/22 01/23/25 History 12/23 (Droplet Pen Needle) vitamin B12 500 mcg-folic acid 400 1 tab PO DAILY Supplement 06/29/23 01/23/25 History mcg tablet insulin glargine 100 unit/mL (3 35 unit SQ BID 10/01/23 01/23/25 History mL) subcutaneous pen (Lantus Solostar U-100 Insulin) cholecalciferol (vitamin D3) 10 10 mcg PO DAILY 03/31/24 01/23/25 History mcg (400 unit) capsule empagliflozin 25 mg tablet 25 mg PO DAILY 06/27/24 01/23/25 History (Jardiance) apixaban 5 mg tablet (Eliquis) 5 mg PO BID 07/15/24 01/23/25 History oxybutynin chloride 5 mg 5 mg PO DAILY 07/15/24 01/23/25 History tablet,extended release 24 hr pantoprazole 40 mg tablet,delayed 40 mg PO DAILY #30 tabs 07/16/24 01/23/25 Rx release (Protonix) famotidine 20 mg tablet 20 mg PO BID 08/09/24 01/23/25 History insulin aspart U-100 100 unit/mL See Protocol SQ ACHS PRN 08/09/24 01/23/25 History (3 mL) subcutaneous pen (Novolog Hyperglycemia FlexPen U-100 Insulin aspart) levothyroxine 100 mcg tablet 100 mcg PO DAILY 08/09/24 01/23/25 History metoprolol tartrate 25 mg tablet 12.5 mg (1/2 x 25 mg) PO BID #60 08/24/24 01/23/25 Rx tabs New Prescriptions to Start Prescriptions: Allergies Allergy/AdvReac Type Severity Reaction Status Date / Time amiodarone AdvReac Severe thyroid Verified 01/22/25 20:10 toxicity Assessment and Plan *Assessment and plan (1) Iron deficiency anemia: Status: Acute Qualifiers: Iron deficiency anemia type: unspecified iron deficiency Qualified Code(s): D50.9 - Iron deficiency anemia, unspecified Category: Medical Code(s): D50.9 - Iron deficiency anemia, unspecified (2) Black stools: Status: Acute Category: Medical Code(s): K92.1 - Melena (3) Non-STEMI (non-ST elevated myocardial infarction): Status: Acute Category: Medical Code(s): I21.4 - Non-ST elevation (NSTEMI) myocardial infarction (4) Elevated troponin: Status: Resolved Category: Medical Code(s): R79.89 - Other specified abnormal findings of blood chemistry (5) CAD (coronary artery disease): Status: Acute Qualifiers: Associated angina: with other forms of angina Coronary Disease-Associated Artery/Lesion type: [place] artery [place] vs. transplanted heart: [place] heart Qualified Code(s): I25.118 - Atherosclerotic heart disease of [place] coronary artery with other forms of angina pectoris Category: Medical Code(s): I25.10 - Atherosclerotic heart disease of [place] coronary artery without angina pectoris (6) Hyperlipidemia: Status: Acute Qualifiers: Hyperlipidemia type: mixed hyperlipidemia Qualified Code(s): E78.2 - Mixed hyperlipidemia Category: Medical Code(s): E78.5 - Hyperlipidemia, unspecified (7) Diabetes mellitus: Status: Chronic Qualifiers: Diabetes mellitus complication status: with other specified complication Diabetes mellitus termination clerk insulin use: unspecified nursing home insulin use status Diabetes mellitus type: type 2 Qualified Code(s): E11.69 - Type 2 diabetes mellitus with other specified complication Category: Medical Code(s): E11.9 - Type 2 diabetes mellitus without complications (8) Status post coronary artery stent placement: Status: Acute Category: Surgical Code(s): Z95.5 - Presence of coronary angioplasty implant and graft (9) Paroxysmal A-fib: Status: Acute Category: Medical Code(s): I48.0 - Paroxysmal atrial fibrillation (10) PAD (peripheral artery disease): Status: Acute Category: Medical Code(s): I73.9 - Peripheral vascular disease, unspecified (11) Carotid artery disease: Status: Acute Qualifiers: Carotid artery disease type: stenosis Laterality: bilateral Qualified Code(s): I65.23 - Occlusion and stenosis of bilateral carotid arteries Category: Medical Code(s): I77.9 - Disorder of arteries and arterioles, unspecified Plan Plan: 1. The patient was admitted to the hospital with anemia. On admission her hemoglobin was 6.7. She was transfused with 1 unit of packed red blood cells and her hemoglobin is 8.0 this morning. She is getting IV iron today as well due to her anemia. She underwent EGD during this hospitalization which showed no active bleeding. Will defer management of her anemia to her PCP. 2. She is being worked up for iron deficiency anemia as well by GI. She may have a repeat colonoscopy but this will be determined by GI. 3. Her blood thinners are currently on hold due to her active GI bleeding. Before discharge home the patient will need to be restarted on aspirin 81 mg daily and Eliquis 5 mg p.o. twice daily. No Plavix at this time. 4. Will repeat a CBC today at 1330 and again in the morning. If her hemoglobin drops below 8 then we would recommend transfusing her with an additional unit of packed red blood cells. 5. The patient is scheduled to undergo left cardiac catheterization next week due to her angina and known coronary artery disease. She also has an elevated troponin since being in the hospital. Her troponin did trend up since admission. Repeat echocardiogram shows that her ejection fraction remains unchanged at 50%. 6. The patient will need left cardiac catheterization at some point but we do not think it is safe to do it while she is hospitalized due to her anemia. Her symptoms have improved with being transfused so left cardiac catheterization can be postponed until her anemia stabilizes. Once her hemoglobin shows some stability and once her hemoglobin is above 9 we can consider proceeding with her left cardiac catheterization on an outpatient basis. She is scheduled for her procedure next Thursday. We will need to see the patient back in our office early next week on Thursday or Thursday to recheck her anemia levels to see if it would be safe to proceed with her left cardiac catheterization on Thursday. 7. Canceled bilateral runoff. Her JOSE was normal. 8. Her blood pressure is well-controlled. Continue Toprol. 9. Her LDL goal is less than 55. She is on a statin. Will get a liver and lipid panel in the morning. 10. Renal function is stable. 11. Further recommendations will be made pending the patient's response to treatment. Thank you for the opportunity to help participate in the care of this patient. Recommendations and orders are per Dr. Person.
[2025-01-24 11:14] LABS: POC Glucose,Bedside 302 (70-110)
[2025-01-24 13:06] LABS: POC Glucose,Bedside 192 (70-110)
[2025-01-24] MEDS: INSULIN GLARGINE 100 UNITS/ML 3ML FLEXPEN 30 UNIT SUBCUT (13:13)
[2025-01-24 13:49] LABS: Basophils % 0.4 % (0.1-2.0); Eosinophils # 0.5 Kmm3 (0.0-0.4); Hematocrit 27.2 % (37.0-47.0); Hemoglobin 8.5 g/dL (12.2-16.2); Immature Granulocytes # 0.04 10^3uL; Immature Granulocytes % 0.5 %; Lymphocytes # 1.3 K/mm3 (0.7-4.5); Mean Corpuscular HGB Conc 31.3 g/dL (31.8-35.4); Mean Corpuscular Hemoglobin 27.8 pg (27.0-31.2); Mean Corpuscular Volume 88.9 fl (81-99); Monocytes # 0.8 K/mm3 (0.1-1.0); Monocytes % 9.8 % (1.7-9.3); Neutrophils # 5.2 K/mm3 (1.8-7.8); Neutrophils % 66.3 % (37.0-80.0); Nucleated Red Blood Cells # 0 10^3/uL; Nucleated Red Blood Cells % 0 %; Platelet Count 338 K/mm3 (142-424); Red Blood Count 3.06 M/mm3 (4.20-5.40); Red Cell Distribution Width 15.5 % (11.5-17.5); Red Cell Distribution Width-SD 50.6 fL; White Blood Count 7.8 K/mm3 (4.8-10.8)
[2025-01-24 17:31] LABS: POC Glucose,Bedside 136 (70-110)
--- NOTE | 2025-01-24 18:09 | PC.NURSE ---
Patient is A&Ox4. Vital signs stable tolerating room air. FSBS treated per OCT. No reports of pain. IV iron infused per OCT. Pt continues to refuse bed/chair alarm. Pt resting comfortably up in the chair with no further needs voiced at this time. Call light within reach.
--- NOTE | 2025-01-24 18:43 | CA_ITS ---
APPROVED REPORT EXAM: Comprehensive 2D, Doppler, and color-flow Echocardiogram [employer] [employer] Tender: Chloe Suárez CRT Ht: 5 ft 2 in Wt: 175lbs BSA: 1.81 BP: 132/67 mmHg Indications: Shortness of Breath, Chest Pain, Anemia M-Mode Dimensions RVDd 2.50 cm (0.9-2.6) LA Diam 3.77 cm (1.9-4.0) LVDd 3.29 cm (3.5-5.7) LVDs 2.40 cm (3.5-5.7) IVSd 1.79 cm (0.6-1.1) PWd 0.68 cm (0.6-1.1) EF (Teich) 53.90% FS 27.10% EDV (Teich) 43.80 mL ESV (Teich) 20.20 mL Other Information Study Quality: Fair Conclusion This is a limited TTE to evaluate for LV systolic function. Limited windows are obtained. The left ventricle is normal in size. There is increased LV wall thickness. There is low-normal global LV systolic function. No regional wall motion abnormalities are noted. LVEF is 50%. Compared to prior study from 10/26/2024, there is no significant change to LV systolic function. Electronically signed by : Arpita Person MD 01/24/2025 12:36:11
[2025-01-24] MEDS: ATORVASTATIN 40MG TABLET 80 MG PO (20:20)
[2025-01-24] MEDS: PT OWN MED *PANTOPRAZOLE 40 MG TAB 1 EACH PO (20:22)
[2025-01-24 20:37] LABS: POC Glucose,Bedside 214 (70-110)
[2025-01-25] VITALS: BP 127/55; PULSE 83; PULSE 90; RESP 18; TEMP 36.9; O2SAT 95
[2025-01-25 04:00] VITALS: BP 120/52; PULSE 73; PULSE 80; RESP 15; TEMP 36.8; O2SAT 95; BMI 31.0
--- NOTE | 2025-01-25 06:09 | PC.NURSE ---
Pt A&Ox4. Pt is on RA. No acute changes noted. Plan is to continue to monitor HgB. Pt resting in bed w/ call light in reach. Plan of care ongoing.
[2025-01-25 06:11] LABS: Basophils # 0.1 K/mm3 (0-0.2); Basophils % 0.6 % (0.1-2.0); Eosinophils # 0.6 Kmm3 (0.0-0.4); Eosinophils % 7.4 % (0.1-12.0); Hematocrit 27.1 % (37.0-47.0); Hemoglobin 8.3 g/dL (12.2-16.2); Immature Granulocytes # 0.06 10^3uL; Immature Granulocytes % 0.8 %; Lymphocytes # 1.7 K/mm3 (0.7-4.5); Lymphocytes % 21.2 % (10-50); Mean Corpuscular HGB Conc 30.6 g/dL (31.8-35.4); Mean Corpuscular Hemoglobin 27.2 pg (27.0-31.2); Mean Corpuscular Volume 88.9 fl (81-99); Mean Platelet Volume 9.4 fl (7.4-10.4); Monocytes # 0.6 K/mm3 (0.1-1.0); Monocytes % 8.2 % (1.7-9.3); Neutrophils # 4.8 K/mm3 (1.8-7.8); Neutrophils % 61.8 % (37.0-80.0); Nucleated Red Blood Cells # 0 10^3/uL; Nucleated Red Blood Cells % 0 %; Platelet Count 330 K/mm3 (142-424); Red Blood Count 3.05 M/mm3 (4.20-5.40); Red Cell Distribution Width 15.2 % (11.5-17.5); Red Cell Distribution Width-SD 49.4 fL; White Blood Count 7.8 K/mm3 (4.8-10.8)
[2025-01-25] MEDS: humaLOG 100 UNITS/ML 10ML VIAL (SSI) SUBCUT (06:27)
[2025-01-25] MEDS: METFORMIN 500MG TABLET 1000 MG PO (06:30)
[2025-01-25 06:31] LABS: Chloride 110 mmol/L (98-107); Potassium 4.2 mmoL/L (3.5-5.1); Sodium 137 mmol/L (136-145)
[2025-01-25 06:34] LABS: Anion Gap 10.2 mEq/L (5-15); Blood Urea Nitrogen 30 mg/dl (7-17); Carbon Dioxide 21 mmol/L (22.0-30.0); Creatinine Clearance Estimated 55 mL/min (50-200); Estimated Glomerular Filt Rate 48 ml/min (>60); GFR (African American) 59 ML/MIN (>60)
[2025-01-25 06:35] LABS: Calcium 8.5 mg/dl (8.4-10.2); Glucose 170 mg/dl (74-100)
[2025-01-25 08:00] VITALS: BP 131/58; PULSE 83; PULSE 90; RESP 18; TEMP 36.8; O2SAT 97
--- NOTE | 2025-01-25 08:09 | EXP.ACUTE.PN ---
Subjective *Date: 01/25/25 *Time: 08:39 Interval history: Patient is feeling better today. She has been up and moving around the room without SOA. She slept and ate well and is anxious to go home. Medical Exam Vital signs and Labs for Last 24 Hours: Vital Signs Temp Pulse Pulse Resp BP Pulse Ox O2 Del Method 01/25/25 06:37 Room Air 01/25/25 04:57 Room Air 01/25/25 04:00 80 01/25/25 04:00 98.2 F 73 15 120/52 L 95 Room Air 01/25/25 02:52 Room Air 01/25/25 00:00 90 01/25/25 00:00 98.5 F 83 18 127/55 L 95 Room Air 01/24/25 23:00 Room Air 01/24/25 21:00 Room Air 01/24/25 20:00 90 01/24/25 20:00 Room Air 01/24/25 19:38 98.4 F 83 18 132/57 L 97 Room Air 01/24/25 18:51 Room Air 01/24/25 17:00 Room Air 01/24/25 16:00 90 01/24/25 16:00 98.5 F 82 18 124/70 97 Room Air 01/24/25 15:00 Room Air 01/24/25 13:00 Room Air 01/24/25 12:00 80 01/24/25 12:00 98.5 F 71 19 127/66 96 Room Air 01/24/25 11:00 Room Air 01/24/25 09:00 Room Air Intake and Output 01/24/25 01/25/25 01/25/25 19:59 03:59 11:59 Intake Total 480 / 480 Output Total 800 / 1100 300 / 1100 Balance -320 / -620 -300 / -620 Intake: Intake, Oral Amount 480 / 480 Output: Output, Urine Amount 800 / 1100 300 / 1100 Other: Number of Bowel Movements 1 Weight 175 lb Patient Weight 01/25/25 11:59 Weight 175 lb Laboratory Results - last 24 hr 01/24/25 05:45: Ferritin 9.24 L 01/24/25 08:20: Vitamin B12 791, Folate 7.79 01/24/25 11:04: POC Glucose 302 H* 01/24/25 12:58: POC Glucose 192 H 01/24/25 13:40: WBC 7.8, RBC 3.06 L, Hgb 8.5 L, Hct 27.2 L, MCV 88.9, MCH 27.8, MCHC 31.3 L, RDW 15.5, Plt Count 338, MPV 9.0, Neut % (Auto) 66.3, Lymph % (Auto) 17.0, [place] % (Auto) 9.8 H, Eos % (Auto) 6.0, Baso % (Auto) 0.4, Neut # (Auto) 5.2, Lymph # (Auto) 1.3, [place] # (Auto) 0.8, Eos # (Auto) 0.5 H, Baso # (Auto) 0.0 01/24/25 17:01: POC Glucose 136 H 01/24/25 20:17: POC Glucose 214 H 01/25/25 05:48: WBC 7.8, RBC 3.05 L, Hgb 8.3 L, Hct 27.1 L, MCV 88.9, MCH 27.2, MCHC 30.6 L, RDW 15.2, Plt Count 330, MPV 9.4, Neut % (Auto) 61.8, Lymph % (Auto) 21.2, [place] % (Auto) 8.2, Eos % (Auto) 7.4, Baso % (Auto) 0.6, Neut # (Auto) 4.8, Lymph # (Auto) 1.7, [place] # (Auto) 0.6, Eos # (Auto) 0.6 H, Baso # (Auto) 0.1, Sodium 137, Potassium 4.2, Chloride 110 H, Carbon Dioxide 21 L, Anion Gap 10.2, BUN 30 H, Creatinine 1.10 H, Estimated Creat Clear 55, Estimated GFR 48 L, Est GFR ( Amer) 59, Glucose 170 H, Calcium 8.5 I & O for Labs for Last 24 Hours: Intake & Output 01/22/25 01/23/25 01/24/25 01/25/25 11:59 11:59 11:59 11:59 Intake Total 0 / 0 590 / 590 480 / 480 Output Total 1450 / 1450 1500 / 1500 1100 / 1100 Balance -1450 / -1450 -910 / -910 -620 / -620 Weight 175 lb 8 oz 172 lb 8 oz 175 lb Constitutional: Present no acute distress Respiratory: Present normal respiratory effort Cardiac: Present Reg Rate and Rhythm GI: Present normal bowel sounds; Absent tenderness Extremities: Present normal inspection and full ROM Skin: Present intact; Absent erythema Neuro: Present Grossly Intact and moves all extremities Assessment and Plan *Assessment and plan (1) Iron deficiency anemia: Status: Acute Qualifiers: Iron deficiency anemia type: unspecified iron deficiency Qualified Code(s): D50.9 - Iron deficiency anemia, unspecified Category: Medical Code(s): D50.9 - Iron deficiency anemia, unspecified (2) Black stools: Status: Acute Category: Medical Code(s): K92.1 - Melena (3) Non-STEMI (non-ST elevated myocardial infarction): Status: Acute Category: Medical Code(s): I21.4 - Non-ST elevation (NSTEMI) myocardial infarction (4) Elevated troponin: Status: Resolved Category: Medical Code(s): R79.89 - Other specified abnormal findings of blood chemistry (5) CAD (coronary artery disease): Status: Acute Qualifiers: Associated angina: with other forms of angina Coronary Disease-Associated Artery/Lesion type: [place] artery [place] vs. transplanted heart: [place] heart Qualified Code(s): I25.118 - Atherosclerotic heart disease of [place] coronary artery with other forms of angina pectoris Category: Medical Code(s): I25.10 - Atherosclerotic heart disease of [place] coronary artery without angina pectoris (6) Hyperlipidemia: Status: Acute Qualifiers: Hyperlipidemia type: mixed hyperlipidemia Qualified Code(s): E78.2 - Mixed hyperlipidemia Category: Medical Code(s): E78.5 - Hyperlipidemia, unspecified (7) Diabetes mellitus: Status: Chronic Qualifiers: Diabetes mellitus complication status: with other specified complication 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 supervisor insulin use: unspecified fpc insulin use status Diabetes mellitus type: type 2 Qualified Code(s): E11.69 - Type 2 diabetes mellitus with other specified complication Category: Medical Code(s): E11.9 - Type 2 diabetes mellitus without complications (8) Status post coronary artery stent placement: Status: Acute Category: Surgical Code(s): Z95.5 - Presence of coronary angioplasty implant and graft (9) Paroxysmal A-fib: Status: Acute Category: Medical Code(s): I48.0 - Paroxysmal atrial fibrillation (10) PAD (peripheral artery disease): Status: Acute Category: Medical Code(s): I73.9 - Peripheral vascular disease, unspecified (11) Carotid artery disease: Status: Acute Qualifiers: Carotid artery disease type: stenosis Laterality: bilateral Qualified Code(s): I65.23 - Occlusion and stenosis of bilateral carotid arteries Category: Medical Code(s): I77.9 - Disorder of arteries and arterioles, unspecified (12) Chest pain: Status: Acute Category: Medical Code(s): R07.9 - Chest pain, unspecified (13) [place] (dyspnea on exertion): Status: Acute Category: Medical Code(s): R06.09 - Other forms of dyspnea (14) Anemia: Status: Acute Qualifiers: Anemia type: unspecified type Qualified Code(s): D64.9 - Anemia, unspecified Category: Medical Code(s): D64.9 - Anemia, unspecified (15) Fatigue: Status: Acute Qualifiers: Fatigue type: unspecified Qualified Code(s): R53.83 - Other fatigue Category: Medical Code(s): R53.83 - Other fatigue (16) Abdominal pain: Status: Acute Qualifiers: Abdominal location: generalized Qualified Code(s): R10.84 - Generalized abdominal pain Category: Medical Code(s): R10.9 - Unspecified abdominal pain (17) Hypothyroidism: Status: Acute Category: Medical Code(s): E03.9 - Hypothyroidism, unspecified (18) Coronary artery disease: Status: Acute Qualifiers: Associated angina: without angina Coronary Disease-Associated Artery/Lesion type: [place] artery [place] vs. transplanted heart: [place] heart Qualified Code(s): I25.10 - Atherosclerotic heart disease of [place] coronary artery without angina pectoris Category: Medical Code(s): I25.10 - Atherosclerotic heart disease of [place] coronary artery without angina pectoris (19) Epigastric pain: Status: Acute Category: Medical Code(s): R10.13 - Epigastric pain (20) Acute anemia: Status: Acute Category: Medical Code(s): D64.9 - Anemia, unspecified Plan H&H is stable. Cardiology note reviewed. Will discuss further care with Dr. Garcia. Dr. Valadez entry - Saw patient, agree with above note. Plan to resume Eliquis and start ASA today, Likely discharge later today.
[2025-01-25] MEDS: METOPROLOL TARTRATE 25MG TABLET 12.5 MG PO (08:47)
[2025-01-25] MEDS: OXYBUTYNIN 5MG TAB 5 MG PO (08:48)
[2025-01-25] MEDS: ASPIRIN EC 81MG TABLET 81 MG PO (08:52)
[2025-01-25] MEDS: APIXABAN 5MG TABLET 5 MG PO (08:52)
[2025-01-25 09:06] LABS: Occult Blood,Stool Positive (Negative)
[2025-01-25 10:10] LABS: POC Glucose,Bedside 155 (70-110)
--- NOTE | 2025-01-25 10:40 | P.PN_ITS ---
Subjective *Date: 01/25/25 *Time: 10:40 Interval history: Patient again in armchair and doing well with no complaints. No further black stools or chest pain. Floor nurse called about stool testing Hemoccult positive Exam Data for Last 24 hours Vital signs and Labs for Last 24 Hours: Temp Pulse Resp BP Pulse Ox O2 Del Method 98.2 F 83 18 131/58 L 97 Room Air 01/25/25 08:00 01/25/25 08:00 01/25/25 08:00 01/25/25 08:00 01/25/25 08:00 01/25/25 09:00 Laboratory Results - last 24 hr 01/23/25 16:29: POC Glucose 155 H 01/24/25 11:04: POC Glucose 302 H* 01/24/25 12:58: POC Glucose 192 H 01/24/25 13:40: WBC 7.8, RBC 3.06 L, Hgb 8.5 L, Hct 27.2 L, MCV 88.9, MCH 27.8, MCHC 31.3 L, RDW 15.5, Plt Count 338, MPV 9.0, Neut % (Auto) 66.3, Lymph % (Auto) 17.0, [place] % (Auto) 9.8 H, Eos % (Auto) 6.0, Baso % (Auto) 0.4, Neut # (Auto) 5.2, Lymph # (Auto) 1.3, [place] # (Auto) 0.8, Eos # (Auto) 0.5 H, Baso # (Auto) 0.0 01/24/25 17:01: POC Glucose 136 H 01/24/25 20:17: POC Glucose 214 H 01/25/25 05:48: WBC 7.8, RBC 3.05 L, Hgb 8.3 L, Hct 27.1 L, MCV 88.9, MCH 27.2, MCHC 30.6 L, RDW 15.2, Plt Count 330, MPV 9.4, Neut % (Auto) 61.8, Lymph % (Auto) 21.2, [place] % (Auto) 8.2, Eos % (Auto) 7.4, Baso % (Auto) 0.6, Neut # (Auto) 4.8, Lymph # (Auto) 1.7, [place] # (Auto) 0.6, Eos # (Auto) 0.6 H, Baso # (Auto) 0.1, Sodium 137, Potassium 4.2, Chloride 110 H, Carbon Dioxide 21 L, Anion Gap 10.2, BUN 30 H, Creatinine 1.10 H, Estimated Creat Clear 55, Estimated GFR 48 L, Est GFR ( Amer) 59, Glucose 170 H, Calcium 8.5 01/25/25 08:24: Stool Occult Blood Positive A I & O for Last 24 hours: Intake & Output 01/22/25 01/23/25 01/24/25 01/25/25 23:59 23:59 23:59 23:59 Intake Total 240 / 240 830 / 830 480 / 480 Output Total 1800 / 2050 2250 / 2250 200 / 200 Balance -1560 / -1810 -1420 / -1420 280 / 280 Weight 170 lb 175 lb 8 oz 172 lb 8 oz 175 lb *Routine Abdominal Exam Abdominal: Present soft and normoactive bowel sounds Comments: Benign abdomen Assessment and Plan *Assessment and plan (1) Iron deficiency anemia: Status: Acute Qualifiers: Iron deficiency anemia type: unspecified iron deficiency Qualified Code(s): D50.9 - Iron deficiency anemia, unspecified Category: Medical Code(s): D50.9 - Iron deficiency anemia, unspecified (2) Positive occult stool blood test: Status: Acute Category: Medical Code(s): R19.5 - Other fecal abnormalities Plan 1. Iron deficiency anemia with Hemoccult positive stool. The patient has received Venofer today once and may need outpatient iron infusion. I did review yesterday prior colonoscopy with difficult visualization, poor preparation, spasticity and tortuosity (Ronn Goodman M.D.). This was done in June 2023 with positive Cologuard. I would recommend that we repeat a colonoscopy before [facility]. Importantly, the patient did have chest pain that radiated into her arms. There was no esophageal etiology and with her history of coronary disease, I presume this was cardiac angina. I would like for her to be cleared by cardiology before the colonoscopy. I am going to arrange colonoscopy for when I return and will be out next week. I did discuss this with patient and family.
--- NOTE | 2025-01-25 11:01 | EXP.CARD.PN ---
Subjective Subjective Date: 01/25/25 Time: 09:00 Principal diagnosis: Iron deficiency anemia, non-STEMI, CAD Interval history: This is a 74-year-old female who presented to the emergency department shortness of breath and chest pain. She was found to be profoundly anemic with a hemoglobin of 6.7. She was transfused with packed red blood cells and also had IV iron. The patient did have an elevated troponin consistent with a non-STEMI. Left cardiac catheterization is scheduled for next week. We would like for her anemia to be a little more stable before proceeding with left cardiac catheterization in the event that she may need to be on dual antiplatelet therapy. Her shortness of breath is significantly improved. Her chest pain is resolved. She denies lower extremity edema. She denies any fever, chills, nausea, vomiting, diarrhea. Exam Data for Last 24 hours Vital signs and Labs for Last 24 Hours: Temp Pulse Resp BP Pulse Ox O2 Del Method 98.2 F 83 18 131/58 L 97 Room Air 01/25/25 08:00 01/25/25 08:00 01/25/25 08:00 01/25/25 08:00 01/25/25 08:00 01/25/25 09:00 Laboratory Results - last 24 hr 01/23/25 16:29: POC Glucose 155 H 01/24/25 11:04: POC Glucose 302 H* 01/24/25 12:58: POC Glucose 192 H 01/24/25 13:40: WBC 7.8, RBC 3.06 L, Hgb 8.5 L, Hct 27.2 L, MCV 88.9, MCH 27.8, MCHC 31.3 L, RDW 15.5, Plt Count 338, MPV 9.0, Neut % (Auto) 66.3, Lymph % (Auto) 17.0, [place] % (Auto) 9.8 H, Eos % (Auto) 6.0, Baso % (Auto) 0.4, Neut # (Auto) 5.2, Lymph # (Auto) 1.3, [place] # (Auto) 0.8, Eos # (Auto) 0.5 H, Baso # (Auto) 0.0 01/24/25 17:01: POC Glucose 136 H 01/24/25 20:17: POC Glucose 214 H 01/25/25 05:48: WBC 7.8, RBC 3.05 L, Hgb 8.3 L, Hct 27.1 L, MCV 88.9, MCH 27.2, MCHC 30.6 L, RDW 15.2, Plt Count 330, MPV 9.4, Neut % (Auto) 61.8, Lymph % (Auto) 21.2, [place] % (Auto) 8.2, Eos % (Auto) 7.4, Baso % (Auto) 0.6, Neut # (Auto) 4.8, Lymph # (Auto) 1.7, [place] # (Auto) 0.6, Eos # (Auto) 0.6 H, Baso # (Auto) 0.1, Sodium 137, Potassium 4.2, Chloride 110 H, Carbon Dioxide 21 L, Anion Gap 10.2, BUN 30 H, Creatinine 1.10 H, Estimated Creat Clear 55, Estimated GFR 48 L, Est GFR ( Amer) 59, Glucose 170 H, Calcium 8.5 01/25/25 08:24: Stool Occult Blood Positive A I & O for Last 24 hours: Intake & Output 01/22/25 01/23/25 01/24/25 01/25/25 23:59 23:59 23:59 23:59 Intake Total 240 / 240 830 / 830 480 / 480 Output Total 1800 / 2050 2250 / 2250 200 / 200 Balance -1560 / -1810 -1420 / -1420 280 / 280 Weight 170 lb 175 lb 8 oz 172 lb 8 oz 175 lb Constitutional Constitutional: no acute distress and obese *Routine HEENT Exam Head: Present normocephalic and atraumatic ENT: Present mucous membranes moist *Routine Neck Exam Neck: Present supple, full ROM and normal carotid upstroke; Absent JVD, carotid bruit or lymphadenopathy *Routine Respiratory Exam Respiratory: Present CTA bilaterally, normal respiratory effort, able to speak in complete sentences and symmetric chest movement *Routine Cardiovascular Exam Cardiovascular: Present RRR, Normal S1 and Normal S2; Absent murmur or gallop *Routine Abdominal Exam Abdominal: Present soft and normoactive bowel sounds; Absent tenderness, distended or organomegaly *Routine Extremities Exam Extremities: Present full ROM, pulses intact and normal capillary refill; Absent cyanosis, clubbing or edema *Routine Skin Exam Skin: Present intact and warm; Absent erythema *Routine Neurological Exam Neurological: Present alert, oriented X3 and CN II-XII intact; Absent sensory deficit or motor deficit Routine Psychiatric Exam Psychiatric: Present normal affect Progress Note: A&P Assessment and plan (1) Iron deficiency anemia: Status: Acute (2) Positive occult stool blood test: Status: Acute (3) Non-STEMI (non-ST elevated myocardial infarction): Status: Acute (4) Black stools: Status: Acute (5) CAD (coronary artery disease): Status: Acute (6) Status post coronary artery stent placement: Status: Acute (7) Hyperlipidemia: Status: Acute (8) Diabetes mellitus: Status: Chronic Assessment and Plan Assessment and Plan for All Diagnoses:: Plan: 1. The patient was admitted to the hospital with anemia. On admission her hemoglobin was 6.7. She was transfused with 1 unit of packed red blood cells and IV iron. Her hemoglobin is 8.3 today. 2. She is Hemoccult stool positive. She will need a colonoscopy on an outpatient basis. 3. Eliquis and Plavix were held due to her active GI bleeding. Will resume aspirin 81 mg daily and Eliquis 5 mg p.o. twice daily today. 4. The patient is scheduled to undergo left cardiac catheterization next week due to her angina and known coronary artery disease. She also has an elevated troponin since being in the hospital. Her troponin did trend up since admission. Repeat echocardiogram shows that her ejection fraction remains unchanged at 50%. 5. The patient will need left cardiac catheterization at some point but we do not think it is safe to do it while she is hospitalized due to her anemia. Want her anemia stabilized before proceeding with LHC. Her stool is Hemoccult positive. She will need colonoscopy prior to proceeding with LHC. She is elevated risk to proceed with colonoscopy due to her known CAD, but acceptable to proceed at this time prior to repeat LHC. Do not want to commit patient to blood thinners if she has an active bleed going on. 6. Canceled bilateral runoff. Her JOSE was normal. 7. Her blood pressure is well-controlled. Continue Toprol. 8. Her LDL goal is less than 55. She is on a statin. LDL is 82. on statin. 9. Renal function is stable. 10. No further recommendations at this time from a cardiac standpoint. The patient can be discharged home today from a cardiac standpoint. 11. She will need to be discharged on the following cardiac medications: Eliquis 5 mg p.o. twice daily, aspirin 81 mg daily, Lipitor 80 mg p.o. nightly, metoprolol tartrate 12.5 mg p.o. twice daily. Thank you for the opportunity to help participate in the care of this patient. Recommendations and orders are per Dr. Person.
[2025-01-25 12:04] LABS: Chol/HDL Ratio 3.4 (1-3.5); Cholesterol 171 mg/dl (140-200); HDL Cholesterol 50 mg/dl (40-60); Triglycerides 127 mg/dl (30-150); VLDL Cholesterol 25 mg/dL (0-40)
[2025-01-25 12:15] LABS: Direct LDL Cholesterol 82.45 mg/dL (100-129)
--- NOTE | 2025-01-26 09:58 | SW/DCPLANNER ---
Spoke with patient on the phone. Patient stated that she is pretty good. Patient stated that she is aware of her upcoming appointment. Patient stated that they were able to get her new medicine picked up from clinic pharmacy. Patient stated that she is wondering who she needs to call to get her blood count done to see if she is able to have a heart cath done on Thursday and i suggested that she calls Cards or her PCP. Patient stated that she has no other concerns or questions. Annabella Jimenez
[2025-01-26 13:23] LABS: POC Glucose,Bedside 196 (70-110)
--- NOTE | 2025-01-31 01:29 | EXP.DC.SUM ---
General Admission date:: 01/22/25 HPI HPI HPI: Ms. Fernandez is a 74 year old female who is admitted for dyspnea on exertion and did have moderate anemia which is new. She had a drop in hemoglobin from 11.4 in September 2024 to 6.7 yesterday. The patient does report some retrosternal chest discomfort. She had a colonoscopy in June 2023 but has never had an EGD. The patient has had dark stools/black stools but is on iron. Hospital Course Hospital Course Hospital Course: The patient was admitted for management of symptomatic anemia. She received packed red blood cells and a GI consult was ordered. She was seen by Dr. Lewis and he wanted to perform a diagnostic EGD. This was done on 01/23/2025. He found mild antral gastropathy but the upper endoscopy was otherwise normal. There was no clear source for the patient's GI bleed. He wanted the patient to have parenteral iron infusions before discharge. She had a positive Cologuard in June 2023 and had a colonoscopy with Dr. Goodman. He wanted to collect a Hemoccult stool test and if positive, consider colonoscopy prior to considering PillCam. The patient was also seen by cardiology. Her troponin was elevated and her preliminary echo showed an LVEF of 45%. Cardiology saw the patient and agreed with holding her blood thinners due to active GI bleed. They felt she should be restarted on her Eliquis and aspirin before discharge home. She was already scheduled to undergo a left heart cath in a week and they felt this should be completed but not until her anemia was stable. The patient was feeling better by 01/25/2025. She was up and moving around the room without shortness of breath and was anxious to go home. Her H&H remained stable. Her Hemoccult stool test was positive. Dr. Lewis wanted to repeat a colonoscopy before doing a PillCam. He wanted this performed on an outpatient basis. She was stable to be discharged home and will have follow-up with both GI and cardiology. Exam Data for Last 24 hours Vital signs and Labs for Last 24 Hours: Temp Pulse Resp BP Pulse Ox O2 Del Method 98.2 F 83 18 131/58 L 97 Room Air 01/25/25 08:00 01/25/25 08:00 01/25/25 08:00 01/25/25 08:00 01/25/25 08:00 01/25/25 11:00 Narrative: Constitutional Constitutional: no acute distress *Routine HEENT Exam Head: Present normocephalic Eye: Present EOMI and PERRL ENT: Present mucous membranes moist *Routine Neck Exam Neck: Present supple; Absent lymphadenopathy *Routine Respiratory Exam Respiratory: Present CTA bilaterally *Routine Cardiovascular Exam Cardiovascular: Present irregularly irregular *Routine Abdominal Exam Abdominal: Present soft, normoactive bowel sounds and tenderness (epigastric) *Routine Rectal Exam Rectal:: deferred *Routine Genitalia Exam Genitalia:: deferred *Routine Extremities Exam Extremities: Absent cyanosis, clubbing or edema *Routine Skin Exam Skin: Present warm; Absent rash *Routine Neurological Exam Neurological: Present alert and oriented X3 DS: Diagnosis Discharge Diagnosis (1) Iron deficiency anemia: Status: Acute Code(s): D50.9 - Iron deficiency anemia, unspecified Qualifiers: Iron deficiency anemia type: unspecified iron deficiency Qualified Code(s): D50.9 - Iron deficiency anemia, unspecified (2) Positive occult stool blood test: Status: Acute Code(s): R19.5 - Other fecal abnormalities (3) Non-STEMI (non-ST elevated myocardial infarction): Status: Acute Code(s): I21.4 - Non-ST elevation (NSTEMI) myocardial infarction (4) Black stools: Status: Acute Code(s): K92.1 - Melena (5) CAD (coronary artery disease): Status: Acute Code(s): I25.10 - Atherosclerotic heart disease of [place] coronary artery without angina pectoris Qualifiers: Coronary Disease-Associated Artery/Lesion type: [place] artery [place] vs. transplanted heart: [place] heart Associated angina: with other forms of angina Qualified Code(s): I25.118 - Atherosclerotic heart disease of [place] coronary artery with other forms of angina pectoris (6) Status post coronary artery stent placement: Status: Acute Code(s): Z95.5 - Presence of coronary angioplasty implant and graft (7) Hyperlipidemia: Status: Acute Code(s): E78.5 - Hyperlipidemia, unspecified Qualifiers: Hyperlipidemia type: mixed hyperlipidemia Qualified Code(s): E78.2 - Mixed hyperlipidemia (8) Diabetes mellitus: Status: Chronic Code(s): E11.9 - Type 2 diabetes mellitus without complications Qualifiers: Diabetes mellitus complication status: with other specified complication Diabetes mellitus care home insulin use: unspecified care home insulin use status Diabetes mellitus type: type 2 Qualified Code(s): E11.69 - Type 2 diabetes mellitus with other specified complication Meds Home Medications and Allergies Home Medications ?Medication ?Instructions ?Recorded ?Confirmed ?Type metformin 1,000 mg tablet 1,000 mg PO BID 01/02/21 01/23/25 History atorvastatin 80 mg tablet 80 mg PO DAILY 02/03/22 01/23/25 History blood sugar diagnostic (Accu-Chek #10 ea 02/03/22 01/23/25 History Amanda Plus test strips) lancets (Accu-Chek Softclix #100 ea 02/03/22 01/23/25 History Lancets) pen needle, diabetic 31 gauge x #1,200 ea 02/03/22 01/23/25 History 12/23 (Droplet Pen Needle) vitamin B12 500 mcg-folic acid 400 1 tab PO DAILY Supplement 06/29/23 01/23/25 History mcg tablet insulin glargine 100 unit/mL (3 35 unit SQ BID 10/01/23 01/23/25 History mL) subcutaneous pen (Lantus Solostar U-100 Insulin) cholecalciferol (vitamin D3) 10 10 mcg PO DAILY 03/31/24 01/23/25 History mcg (400 unit) capsule empagliflozin 25 mg tablet 25 mg PO DAILY 06/27/24 01/23/25 History (Jardiance) apixaban 5 mg tablet (Eliquis) 5 mg PO BID 07/15/24 01/23/25 History oxybutynin chloride 5 mg 5 mg PO DAILY 07/15/24 01/23/25 History tablet,extended release 24 hr pantoprazole 40 mg tablet,delayed 40 mg PO DAILY #30 tabs 07/16/24 01/23/25 Rx release (Protonix) famotidine 20 mg tablet 20 mg PO BID 08/09/24 01/23/25 History insulin aspart U-100 100 unit/mL See Protocol SQ ACHS PRN 08/09/24 01/23/25 History (3 mL) subcutaneous pen (Novolog Hyperglycemia FlexPen U-100 Insulin aspart) levothyroxine 100 mcg tablet 100 mcg PO DAILY 08/09/24 01/23/25 History metoprolol tartrate 25 mg tablet 12.5 mg (1/2 x 25 mg) PO BID #60 08/24/24 01/23/25 Rx tabs aspirin 81 mg tablet,delayed 81 mg PO DAILY #1 tab 01/25/25 Rx release New Prescriptions to Start Prescriptions: aspirin Cosme Garcia Allergies Allergy/AdvReac Type Severity Reaction Status Date / Time amiodarone AdvReac Severe thyroid Verified 01/22/25 20:10 toxicity Discharge Plan Disposition Patient Disposition: Home, Self-Care Condition: Fair Follow up Plan Follow up with: Cosme Garcia MD [Primary Care Provider, Medical] - 02/08/25 10:00 am Prescriptions/Medication Reconciliation: New aspirin 81 mg Tablet,Delayed Release (Dr/Ec) 81 mg PO DAILY Qty: 1 0RF Continued atorvastatin 80 mg tablet 80 mg PO DAILY (DME) pen needle, diabetic [Droplet Pen Needle] 31 gauge x 5/16 needle See Rx Instructions .ROUTE .MEDSUPPLY Qty: 1200 Rx Instructions: As directed (DME) Accu-Chek Amanda Plus test strp Strip See Rx Instructions .ROUTE .MEDSUPPLY Qty: 10 Rx Instructions: As directed (DME) lancets [Accu-Chek Softclix Lancets] Misc See Rx Instructions .ROUTE .MEDSUPPLY Qty: 100 Rx Instructions: As directed cholecalciferol (vitamin D3) 10 mcg (400 unit) capsule 10 mcg PO DAILY Jardiance 25 mg tablet 25 mg PO DAILY levothyroxine 100 mcg tablet 100 mcg PO DAILY famotidine 20 mg tablet 20 mg PO BID insulin aspart U-100 [Novolog FlexPen U-100 Insulin] 100 unit/mL (3 mL) insulin pen See Protocol SQ ACHS PRN (Reason: Hyperglycemia) Protocol: Insulin Corrective High-Dose Regimen Condition: Fingerstick Blood Glucose Dose/Route: Insulin Units Condition: 151-200 mg/dl Dose/Route: 5 units/SQ Condition: 201-250 mg/dl Dose/Route: 7 units/SQ Condition: 251-300 mg/dl Dose/Route: 10 units/SQ Condition: 301-350 mg/dl Dose/Route: 12 units/SQ Condition: 351-400 mg/dl Dose/Route: 15 units/SQ Condition: 401-450 mg/dl Dose/Route: 20 units/SQ Condition: > 450 mg/dl Dose/Route: CALL Protocol Text: High Intensity Sliding Scale Insulin metoprolol tartrate 25 mg tablet 12.5 mg PO BID Qty: 60 5RF metformin 1,000 MG tablet 1,000 mg PO BID vitamin N80-oogzl acid 500-400 mcg Tablet 1 tab PO DAILY Rx Instructions: administer with a meal insulin glargine [Lantus Solostar U-100 Insulin] 100 unit/mL (3 mL) insulin pen 35 unit SQ BID oxybutynin chloride 5 mg tablet extended release 24hr 5 mg PO DAILY Eliquis 5 mg tablet 5 mg PO BID pantoprazole [Protonix] 40 mg tablet,delayed release (DR/EC) 40 mg PO DAILY Qty: 30 0RF Discontinued clopidogrel 75 mg tablet 75 mg PO DAILY Problem Reconciliation Problems Reviewed?: Yes Patient Discharge Instructions ACTIVITY: Continue current activity DIET: continue same diet Patient Instructions: DI for Heart Attack, DI for Iron Deficiency Anemia-Adult, Gastrointestinal Bleeding Print Language: Citizen Of [place] Providers Primary Care Provider: Cosme Garcia Admit Provider: Jonathan Morrow Attending Provider: Cosme Garcia
== END 2025-01-25 12:39 | disposition home or self-care (01) ==
LOC: ER 20:07 → 2ND 22:19
PROVIDERS: Internal Medicine Gastroenterology; Nurse Practitioner Family; Physician Assistant; Admitting Provider Internal Medicine Adolescent Medicine; Emergency Provider Emergency Medicine; PCP Family Medicine; Visit Provider Family Medicine
PROC: 0DJ08ZZ Inspection of Upper Intestinal Tract, Via Natural or Artificial Opening Endoscopic (ICD-10-PCS; principal; 2025-01-23 15:30)
DX: D50.9 Iron deficiency anemia, unspecified (principal); K31.89 Other diseases of stomach and duodenum; E03.9 Hypothyroidism, unspecified; I65.23 Occlusion and stenosis of bilateral carotid arteries; E11.51 Type 2 diabetes mellitus with diabetic peripheral angiopathy without gangrene; I25.118 Atherosclerotic heart disease of native coronary artery with other forms of angina pectoris; I11.9 Hypertensive heart disease without heart failure; J98.11 Atelectasis; I48.0 Paroxysmal atrial fibrillation; E78.2 Mixed hyperlipidemia; I44.7 Left bundle-branch block, unspecified; K92.1 Melena; R79.89 Other specified abnormal findings of blood chemistry; I25.2 Old myocardial infarction; E66.9 Obesity, unspecified; Z68.31 Body mass index [BMI] 31.0-31.9, adult; Z95.5 Presence of coronary angioplasty implant and graft; Z88.8 Allergy status to other drugs, medicaments and biological substances; Z86.73 Personal history of transient ischemic attack (TIA), and cerebral infarction without residual deficits; Z79.4 Long term (current) use of insulin; Z79.84 Long term (current) use of oral hypoglycemic drugs; Z79.01 Long term (current) use of anticoagulants; Z79.890 Hormone replacement therapy; Z79.899 Other long term (current) drug therapy
CPT/HCPCS: 43239; 36415; 36430; 71045; 74174; 80048; 80053; 80061; 81001; 82272; 82607; 82728; 82746; 82962; 83540; 83550; 83735; 83880; 84484; 85014; 85018; 85025; 85610; 86850; 88305; 93005; 93308; 96374; 96375; 99291; G0328; G0378; J1756; J2003; J2704; P9016; Q9967

== ENCOUNTER 2025-01-30 12:11 | Outpatient (CLI) | payer MEDICARE, OTHER, SELFPAY ==
--- OUTSIDE RECORDS SUMMARY | 2024-07-29 07:45 | XMS_ITS ---
Author Organization [facility] Address [address] [facility] [address] [facility] [address] [place] [id number] Care Team Providers Care Sharepoint Designer Developer Name Role Phone Cosme Garcia Primary Care Provider REASON FOR VISIT F/U [facility] Encounters Encounter Location Date Provider Diagnosis [facility] [address] [place] [id number] 07/29/2024 Cosme Garcia Plan Of Treatment Next Appt Details Provider Name:Cosme pérez, 02/08/2025 10:00:00 AM, [address], [address], [place], [place], [phone], Provider Name:Cosme pérez, 02/20/2025 01:30:00 PM, [address], [address], [place], [place], [id number], Progress Notes * URIAH SurendraBrandonOB: (74 yo F)Acc No.[id number]:07/29/2024 Progress Notes Patient: Yesi UGALDE Provider: Damion Garcia M.D. :1950 A ge:74 Y S ex:Female Date:07/29/2024 Address:[id number] Subjective: * Chief Complaints: * 1 . F/U [facility]. * Medical History: Objective: * Vitals: Assessment: Plan: * Treatment: * Billing Information: * Visit Code: * Procedure Codes: * Electronic signature of Carol Garcia MD on 01/30/2025 at 12:27 PM EDT Sign off status: Pending * Provider: Damion Garcia M.D. Date: 1 09/29/2023 Generated for Alexander camp/Vamsi/Yung on: 0 01/30/2025 12:27 PM EDT
--- OUTSIDE RECORDS SUMMARY | 2024-08-31 09:30 | XMS_ITS ---
Author Organization [facility] Address [address] [place] [phone] Care Team Providers Care Driller And Reamer Name Role Phone Cosme Garcia Primary Care Provider Allergies No Known Allergies REASON FOR VISIT cracked heels Medications Medication SIG (Take, Route, Frequency, Duration) Notes Start Date End Date Status FreeStyle Jg 3 [place] - as directed 08/19/2024 Active Accu-Chek Amanda Plus - 1 strip(s) finger stick 2 times a day or as directed for 30 day(s) E11.9 Active FreeStyle Jg 3 Plus Sensor - Apply one sensor every 14 days for 28 days 08/16/2024 Active Famotidine 20 MG TAKE 1 TABLET BY EMMA TH TWICE DAILY for 30 Active Jardiance 25 MG 1 tab(s) orally once a day (in the morning) Active Pantoprazole Sodium 40 MG TAKE 1 TABLET BY MOUTH ONCE DAILY for 30 Active Levothyroxine Sodium 100 MCG 1 tablet in the morning on an empty stomach Orally Once a day for 30 day(s) Active Ondansetron 4 MG 1 tablet on the tong ue and allow to dissolve Orally three times a day as needed Active NovoLOG 100 UNIT/ML SLIDING SCALE BEFORE MEALS UNDER THE SKIN DIRECTED (MAX DAILY DOSE IS 75 UNITS) Active metFORMIN HCl 1000 MG 1 tab(s) orally 2 times a day Active Lantus SoloStar 100 UNIT/ML 40 to 50 units Subcutaneous Two times a day 08/12/2023 Active FreeStyle Jg 3 Plus Sensor - as directed 07/21/2024 Active Clopidogrel Bisulfate 75 MG 1 tab(s) orally once a day for 90 days Active oxyBUTYnin Chloride ER 5 MG 1 tablet Orally Once a day for 90 days 04/20/2024 Active Eliquis 5 MG 1 tablet Orally Twic e a day for 90 days Active Accu-Chek Amanda Plus w/Device as directed 12/04/2023 Active Albuterol Sulfate HFA 108 (90 Base) MCG/ACT 1 puff as needed Inhalation every 4 hrs, prn 11/18/2023 Active Atorvastatin Calcium 80 MG 1 tab(s) oral ly once a day (at bedtime) for 90 days Active Lisinopril 10 MG 1 tab(s) orally once a day for 90 days Active BD Pen Needle Short U/F 31 GUAGE X 5/16 INCH 1 PEN NEEDLE ONCE A DAY for 90 DAYS 03/08/2020 Active BD PEN NEEDLE 29G X3/16 (AUTOSHIELD) 1 SUBCUTANEOUSLY QID for 90 DAYS 03/19/2021 Active BD Swab Single Use Regular - 1 swab(s) fingerstick test 2 times a day for 90 days 12/19/2015 Active Vitamin B-12 1000 MCG 1 tab(s) orally once a day 0 03/09/2019 Active Vitamin D3 50 MCG (2000 UT) 2 tab(s) orally once a day 03/09/2019 A ctive Aspirin Adult Low Dose 81 MG 1 tab(s) orally once a day A ctive Metoprolol Tartrate 25 MG 1/2 tablet Ora lly Twice a day Active Mupirocin 2 % 1 application Criminal Investigator ally Twice a day 08/31/2024 Active Vital Signs Blood pressure systolic 120 mm Hg 08/31/19 25 Blood pressure diastolic 70 mm Hg 025 Heart Rate 106 /min 08/31/2024 Height 63 in 08/31/2024 Weight 167.4 lbs 08/31/2024 BMI 29.65 kg/m2 08/31/2024 Encounters Encounter Location Date Provider Diagnosis [facility] [address] [facility] [address] [place], [place] [id number] 08/31/2024 Cosme Garcia Open wound of right heel, initial encounter S91.301A Assessments Encounter Date Diagnosis (ICD Code) Assessment Notes Treatment Notes Treatment Clinical Notes Section Notes 08/31/2024 Open wound of right heel, initial encounter (ICD-10 - S91.301A) Plan Of Treatment Medication Medication Name Sig Start Date Stop Date Notes Mupirocin 2 % 1 application Externally Twice a day 025 Next Appt Details Follow Up: via phone to repo rt progress, Reason: Provider Name:Cosme Amos elisa, 02/08/2025 10:00:00 AM, [address] [facility] [address], [place], [phone], Provider Name:Cosme pérez, 02/20/2025 01:30:00 PM, [address] [facility] [address], [address], [place], [phone], Progress Notes * Alec FERNANDEZOB: 9 (74 yo F)Acc No.[id number]:08/31/2024 Progress Notes Patient: Yesi UGALDE Provider: Damion Garcia M.D. :1950 A ge:74 Y S ex:Female Date:08/31/2024 Address:[address] [place] [address] [place], [id number] Subjective: * Chief Complaints: * 1 . Cracked heels. * HPI: D ermatology: 74 year old female presents with c/o Dry Skin P t complains of dry skin and cracks on rt heel. Pt states she has tried to soak her feet but has not had any improvement. * ROS: C ARDIOLOGY: no D izziness. n o C hest pain. G ASTROENTEROLOGY: no N ausea. n o V omiting. U ROLOGY: no D ifficulty urinating. n o B lood in urine. * Medical History: T ype 2 Diabetes, Dx: 1979, Hypertension, Hyperlipidemia, TIA, Carotid Stenosis, Dx: 2020. * Surgical History: [facility] - TCAR (TransCarotid Artery Revascularization) right side 03/06/2021, [facility] - TCAR, left side 10/22/2021. * Hospitalization/Major Diagno stic Procedure: G allbladder 1988, Blood Pressure, Nausea 09/09-09/10/2010, Carotid Stenosis 01/02-, TIA 01/01-01/03/21, Rt Carotid Stenosis and TCAR- [facility] 03/06-. * Family History: F ather: 82 yrs. M other: 58 yrs, heart attack. 1 brother(s) , 2 sister(s) . 3 daughter(s) . . * Social History: C URRENT TOBACCO USE S moking Status: Patient does NOT smoke. C affeine: yes, frequency:pop, qd. Home smoke detector use: yes. Marital Status: . Past smoking status: no. Alcohol: No. Sexually active: no.. * Medications: T aking Metoprolol Tartrate 25 MG Tablet 1/2 tablet Orally Twice a day , Taking Aspirin Adult Low Dose 81 MG Tablet Delayed Release 1 tab(s) orally once a day , Taking Vitamin D3 50 MCG (2000 UT) Capsule 2 tab(s) orally once a day , Taking Vitamin B-12 1000 MCG Tablet 1 tab(s) orally once a day , Taking BD Swab Single Use Regular - Pad 1 swab(s) fingerstick test 2 times a day , Taking BD PEN NEEDLE 29G X3/16 (AUTOSHIELD) 1 SUBCUTANEOUSLY QID , Taking BD Pen Needle Short U/F 31 GUAGE X 5/16 INCH 1 PEN NEEDLE ONCE A DAY , Taking Lisinopril 10 MG Tablet 1 tab(s) orally once a day , Taking Atorvastatin Calcium 80 MG Tablet 1 tab(s) orally once a day (at bedtime) , Taking Albuterol Sulfate HFA 108 (90 Base) MCG/ACT Aerosol Solution 1 puff as needed Inhalation every 4 hrs, prn , Taking Accu-Chek Amanda Plus w/Device Kit as directed , Taking Eliquis 5 MG Tablet 1 tablet Orally Twice a day , Taking oxyBUTYnin Chloride ER 5 MG Tablet Extended Release 24 Hour 1 tablet Orally Once a day , Taking Clopidogrel Bisulfate 75 MG Tablet 1 tab(s) orally once a day , Taking FreeStyle Jg 3 Plus Sensor - Miscellaneous as directed , Taking Lantus SoloStar 100 UNIT/ML Solution Pen-injector 40 to 50 units Subcutaneous Two times a day , Taking metFORMIN HCl 1000 MG Tablet 1 tab(s) orally 2 times a day , Taking Jardiance 25 MG Tablet 1 tab(s) orally once a day (in the morning) , Taking NovoLOG 100 UNIT/ML Solution SLIDING SCALE BEFORE MEALS UNDER THE SKIN DIRECTED (MAX DAILY DOSE IS 75 UNITS) , Taking Ondansetron 4 MG Tablet Disintegrating 1 tablet on the tongue and allow to dissolve Orally three times a day as needed , Taking Levothyroxine Sodium 100 MCG Tablet 1 tablet in the morning on an empty stomach Orally Once a day , Taking Pantoprazole Sodium 40 MG Tablet Delayed Release TAKE 1 TABLET BY MOUTH ONCE DAILY , Taking Famotidine 20 MG Tablet TAKE 1 TABLET BY MOUTH TWICE DAILY , Taking FreeStyle Jg 3 Plus Sensor - Miscellaneous Apply one sensor every 14 days , Taking Accu-Chek Amanda Plus - Strip 1 strip(s) fingerstick 2 times a day or as directed , Notes to Pharmacist: E11.9, Taking FreeStyle Jg 3 [place] - Device as directed , Discontinued Spironolactone 25 MG Tablet 2 tab Orally Once a day , Discontinued Promethazine HCl 12.5 MG Tablet 1 tablet as needed Orally every 6 hrs , Medication List reviewed and reconciled with the patient * Allergies: N .K.D.A. Objective: * Vitals: W t:167.4, Temp:98.0, BP:120/70, HR:106, Nurse:michael, Ht: 63, BMI:29.65. * Examination: G eneral Examination: General Appearance: N AD. Skin: s mall superficial linear skin crack on the right heel with minimal surrounding skin erythema, no drainage. Assessment: * Assessment: 1. O pen wound of right heel, initial encounter - S91.301A (Primary) Plan: * Treatment: * Procedure Codes: G 2211 Complex e/m visit add on * Follow Up: v ia phone to report progress * Billing Information: * Visit Code: 50250 Office Visit, Est Pt., Level 3. * Procedure Codes: G2211 Complex e/m visit add on. * Electronic signature of Carol Garcia MD on 01/30/2025 at 12:28 PM EDT Sign off status: Pending * Provider: Damion Garcia M.D. Date: 0 08/31/2024 Generated for Alexander camp/Vamsi/Yung on: 0 01/30/2025 12:28 PM EDT History and Physical Notes * HPI (History of Present Illness) Category Sub-Category Detail Notes Category Not es Dermatology Dry Skin Pt complains of dry skin and cracks on rt heel. Pt states she has tried to soak her feet but has not had any improvement Examination Category Sub-Category Detail Notes Category Not es General Examination General Appearance: NAD Skin: small superficial li near skin crack on the right heel with minimal surrounding skin erythema, no drainage
--- OUTSIDE RECORDS SUMMARY | 2024-10-21 05:30 | XMS_ITS ---
[facility] Organization [facility] Address [address] [facility] [address] [place] [phone] Care Team Providers Care Galvanometer Assembler Name Role Phone Cosme Garcia Primary Care [...] 47 Performing Lab: Notes/Report: Test performed by [facility] [address] [place] [address] , [address], [place] [address] Andrea Flores MD, Exhibition Designer CLIA: [id number] Sodium 144 135-145 mmol/L Potassium 4.4 3.5-5.3 [...] Interpretation:Normal Performing Lab: Notes/Report: Test performed by [facility] [address] [place] [address] , [place] [address] Andrea Flores MD, Exhibition Designer CLIA: [id number] Thyroxine Free (free T4) 1.66 0.86-1.76 ng/dL P-Iron Reviewed date:10/24/2024 12:19:30 PM Interpretation:Normal Performing Lab: Notes/Report: Test performed by [facility] [address] [place] [address] , [facility] [place] [address] Andrea Flores MD, Exhibition Designer CLIA: [id number] Iron 42 37-145 ug/dL P-Lipid Panel Reviewed date:10/24/2024 12:19:30 PM Interpretation:Normal Performing Lab: Notes/Report: Test performed by [facility] [address] [place] [address] , [facility] [place] [address] Andrea Flores MD, Exhibition Designer CLIA: [id number] Cholesterol 167 <200 mg/dL Triglycerides 108 <150 [...] Interpretation:Normal Performing Lab: Notes/Report: Test performed by [facility] [address] [place] [address] Dr[facility], [place] [address] Andrea Flores MD, Exhibition Designer CLIA: [id number] Phosphorus 4.2 2.5-4.5 mg/dL P-TSH Reviewed date:10/24/2024 12:19:30 PM Interpretation:7.02 Performing Lab: Notes/Report: Test performed by [facility] [address] [place] [address] , [address], [place] [address] Andrea Flores MD, Exhibition Designer CLIA: [id number] TSH 7.02 0.43-5.25 mU/L P-Microalbumin/Creatinine, R andom Urine Sample Reviewed date:10/24/2024 12:19:30 PM Interpretation:Album/Creat 65 Performing Lab: Notes/Report: Test performed by [facility] [address] [place] [address] , [address], [place] [address] Andrea Flores MD, Exhibition Designer CLIA: [id number] Albumin/Creatinine Ratio, Urine 65 0-30 ug/m g [...] a day A ctive FreeStyle Jg 3 [place] - as directed 08/19/2024 Active Accu-Chek Amanda [...] 10/21/2024 Encounters Encounter Location Date Provider Diagnosis [facility] [address] [facility] [address] [place], [place] [id number] 10/21/2024 Cosme Garcia Type 2 diabetes darren [...] Follow Up: 4 Months, Reason: Provider Name:Cosme pérez, 02/08/2025 10:00:00 AM, [address] [facility] [address], [place], [place], [id number], Provider Name:Cosme pérez, 02/20/2025 01:30:00 PM, [address] [facility] [address], [place], [place], [id number], Progress Notes * Alec FERNANDEZOB: 9 (74 yo F)Acc No.[id number]:10/21/2024 Progress Notes Patient: Yesi UGALDE Provider: Damion Garcia M.D. :1950 A ge:74 Y S ex:Female Date:10/21/2024 Address:[address] [place] [address] [place], [id number] Subjective: * Chief Complaints: * 1 . [...] to Pharmacist: E11.9, Taking FreeStyle Jg 3 [place] - Device as directed , Taking Jardiance [...] Gracia Muñoz 10/21/2024 11:02:4 2 AM > Ava, Loraine 10/24/2024 12:19:08 PM > see TE 2.?Essential [...] p latlet 333 100 - 400 * KingGarcia 10/21/2024 11:01:3 7 AM > Loraine Escalante [...] G 2211 Complex e/[place], [address] GLUCOSE TEST, 53017 GLYCATED HEMOGLOBIN TEST, Modifiers: QW , 26843 CBC WITH AUTO DIFF, 3051F HG A1C>EQUAL 7.0%<8.0%, G8752 MOST RECENT SYSTOLIC BP < 140MM HG, G8754 MOST RECENT DIASTOLIC BP < 90MM HG * Follow Up: 4 Months * Billing Information: * Visit Code: 55301 Office Visit, Est Pt., Level 4. * Procedure Codes: G2211 Complex e/[place]. [address] GLUCOSE TEST. 58291 GLYCATED HEMOGLOBIN TEST. Modifiers: QW 11849 CBC WITH AUTO DIFF. 3051F HG A1C>EQUAL 7.0%<8.0%. G8752 MOST RECENT SYSTOLIC BP < 140MM HG. G8754 MOST RECENT DIASTOLIC BP < 90MM HG. * Electronic signature of Carol Garcia MD on 01/30/2025 at 12:28 PM EDT Sign off status: Pending * Provider: Damion Garcia M.D. Date: 0 10/21/2024 Generated for Alexander camp/Vamsi/Jakobitting on: 0 01/30/2025 12:28 PM EDT History and Physical Notes * HPI (History of Present Illness) Category Sub-Category Detail Notes Category Not es Endocrinology Recent Blood Sugars Pt here to f/u on DM 2 Examination Category Sub-Category Detail Notes Category Not es General Examination Heart: RSR Lungs: clear to auscultatio n General Appearance: NAD
--- OUTSIDE RECORDS SUMMARY | 2025-01-30 12:28 | XMS_ITS | Patient Health Record ---
Author Organization [facility] Address [address] [facility] [address] EMILY Rosa [id number] Care Team Providers Care Terrazzo Polisher Helper Name Role Phone Cosme Garcia Primary Care Provider Allergies No Known Allergies Results Component Value Reference Range Notes P-Microalbumin/Creatinine, R andom Urine Sample Reviewed date:10/24/2024 12:19:30 PM Interpretation:Album/Creat 65 Performing Lab: Notes/Report: Test performed by [facility] [address] [place] [address] , [address], [place] [address] Andrea Flores MD, Internal Review And Audit Compliance CLIA: [id number] Albumin/Creatinine Ratio, Urine 65 0-30 ug/mg Microalbumin, Urine, Random 3.5 Creatinine, Urine 54.1 P-TSH Reviewed date:10/24/2024 12:19:30 PM Interpretation:7.02 Performing Lab: Notes/Report: Test performed by [facility] [address] [place] [address] , [address], [place] [address] Andrea Flores MD, Internal Review And Audit Compliance CLIA: [id number] TSH 7.02 0.43-5.25 mU/L P-Phosphorus Reviewed date:10/24/2024 12:19:30 PM Interpretation:Normal Performing Lab: Notes/Report: Test performed by [facility] [address] [place] [address] , [address], [place] [address] Andrea Flores MD, Internal Review And Audit Compliance CLIA: [id number] Phosphorus 4.2 2.5-4.5 mg/dL P-Lipid Panel Reviewed date:10/24/2024 12:19:30 PM Interpretation:Normal Performing Lab: Notes/Report: Test performed by [facility] [address] [place] [address] , [place] [address] Andrea Flores MD, Internal Review And Audit Compliance [facility]: [id number] Cholesterol 167 <200 mg/dL Triglycerides 108 <150 [...] Results: 67 Units: mg/dL % Change: - ------- Test Date: 10/21/2024 LDL Results: 89 Units: mg/dL % Change: +32% P-Iron Reviewed date:10/24/2024 12:19:30 PM Interpretation:Normal Performing Lab: Notes/Report: Test performed by [facility] [address] , [address], [place] [address] Andrea Flores MD, Internal Review And Audit Compliance CLIA: [id number] Iron 42 37-145 ug/dL P-T4 Free (thyroxine) Reviewed date:10/24/2024 12:19:30 PM Interpretation:Normal Performing Lab: Notes/Report: [facility] by [facility] , [address], [place] [address] Andrea Flores MD, Internal Review And Audit Compliance CLIA: [id number] Thyroxine Free (free T4) 1.66 0.86-1.76 ng/dL P-Comprehensive Metabolic Pa luis (CMP) Reviewed date:10/24/2024 12:19:30 PM Interpretation:glu 111, BUN 27, Creat 1.20, GFR 47 Performing Lab: Notes/Report: Test performed by [facility] [address] , [address], [place] [address] Andrea Flores MD, Internal Review And Audit Compliance CLIA: [id number] Sodium 144 135-145 mmol/L Potassium 4.4 3.5-5.3 [...] blood glucose 140 74 - 106 mg/dL P-TSH reflex to FT4 Reviewed date:06/24/2024 08:26:05 AM Interpretation:95.3 Performing Lab: Notes/Report: Test performed by [facility] [address] [place] [address] , [place] [address] Andrea Flores MD, Internal Review And Audit Compliance CLIA: [id number] TSH reflex to FT4 95.30 0.43-5.25 mU/L P-Troponin I Reviewed date:06/24/2024 08:24:15 AM Interpretation: Performing Lab: Notes/Report: P-Lipase Reviewed date:06/24/2024 08:26:05 AM Interpretation:9.9 Performing Lab: Notes/Report: Test performed by [facility] [address] [place] [address] , [place] [address] Andrea Flores MD, Internal Review And Audit Compliance CLIA: [id number] Lipase 9.9 13.0-60.0 u/L P-Culture, Urine Reviewed date:06/27/2024 03:25:07 PM Interpretation:sensitive Performing Lab: Notes/Report: Test performed by [facility] [address] [place] [address] , [address], [place] [address] Andrea Flores MD, Internal Review And Audit Compliance CLIA: [id number] Specimen Source Urine - Void Culture, Urine See Below See Microbiol ogy Report Escherichia coli 50,000-100,000 CFU/ml Escherichia coli Sensitivity Panel See Below Organism E. coli Antibiotic INTERP Amikacin S Ampicillin S Aztreonam S Cefepime S Cefoxitin S Ceftazidime S Ceftriaxone S Cefuroxime S Ciprofloxacin R Ertapenem S Gentamicin S Imipenem S Levofloxacin R Meropenem S Nitrofurantoin S Piperacillin/Tazo S Tetracycline S Tobramycin S Trimeth/Sulfa S S=SUSCEPTIBLE I=INTERMEDIATE R=RESISTANT P-Comprehensive Metabolic Pa luis (CMP) Reviewed date:06/24/2024 08:26:05 AM Interpretation:gluc 264, Cr 1.58, gfr 34 Performing Lab: Notes/Report: Test performed by [facility] [address] [place] [address] , [address], [place] [address] Andrea Flores MD, Internal Review And Audit Compliance CLIA: [id number] Sodium 140 135-145 mmol/L Potassium 4.6 3.5-5.3 [...] 0.4 <0.2-1.2 mg/dL A/G Ratio 1.4 1.1-2.5 P-Amylase Reviewed date:06/24/2024 08:26:05 AM Interpretation:26 Performing Lab: Notes/Report: Test performed by [facility] [address] [place] [address] , [address], [place] [address] Andrea Flores MD, Internal Review And Audit Compliance CLIA: [id number] Amylase 26 28-100 U/L Glycohemoglobin A1c (in hous e) Reviewed date:06/22/2024 12:46:05 PM Interpretation: Performing Lab: Notes/Report: glycohemoglobin 8.3% 5 - 6.5 % CBC Fingerstick (in house) Reviewed date:06/22/2024 12:45:53 [...] >1.030 Ketone Trace Bili 1+ Gluc 1+ H-TSH Reviewed date:07/15/2024 10:22:34 AM Interpretation:79.3 Performing Lab: Notes/Report: TSH 79.30 0.465-4.68 uIU/mL H-Glycohemoglobin A1C Reviewed date:07/15/2024 10:22:34 AM Interpretation:8.2 Performing Lab: Notes/Report: HGBA1C 8.2 4.0-6.0 % < 6% Non-Diabetic Level < 7% Controlled Diabetic Level > 8% Poorly Controlled Diabetic Level P-Reticulocyte Count Reviewed date:07/22/2024 10:58:36 AM Interpretation:2.2 Performing Lab: Notes/Report: Test performed by [facility] [address] [place] [address] , [address], [place] [address] Andrea Flores MD, Internal Review And Audit Compliance CLIA: [id number] Reticulocyte Count 2.2 0.5-2.1 % P-Iron with Transferrin Satu ration Reviewed date:07/22/2024 10:58:35 AM Interpretation:Normal Performing Lab: Notes/Report: Test performed by [facility] [address] [place] [address] , [address], [place] [address] Andrea Flores MD, Internal Review And Audit Compliance CLIA: [id number] Iron 65 37-145 ug/dL Transferrin 244 200-360 mg/dL Transferrin Saturation Percentage 19 15-50 % P-Comprehensive Metabolic Pa luis (CMP) Reviewed date:07/22/2024 10:58:36 AM Interpretation:gluc 249, bun 25, Cr 1.23, gfr 46 Performing Lab: Notes/Report: Test performed by [facility] [address] [place] [address] , [place] [address] Andrea Flores MD, Internal Review And Audit Compliance CLIA: [id number] Sodium 139 135-145 mmol/L Potassium 4.5 3.5-5.3 [...] date:07/26/2024 03:18:46 PM Interpretation: Performing Lab: Notes/Report: Urinalysis - Inhouse Reviewed date:04/20/2024 12:19:49 PM Interpretation: Performing Lab: Notes/Report: Color/Clarity yellow/clear Leuk neg Nitrite neg Urobili 3.2 Protein neg pH 5.5 Blood neg Sp. Gr. 1.020 Ketone neg Bili neg Gluc 2+ H-Troponin I Reviewed date:01/24/2025 10:24:48 AM Interpretation: Performing Lab: Notes/Report: TROP 0.56 0.00-0.034 ng/ml CRITICAL RESULT Results called and read back/verified to: live on 01/24/25 at 0710 By Nereida Matias, FILM READER <0.012-0.034 ng/mL NORMAL 0.035 - >0.120 ng/mL ELEVATED* *Serial testing recommended. A rise and fall with peak greater than 0.6 ng/mL may indicate acute myocardial infarction, but is not independently diagnostic. Clinical correlation is necessary. *ALERT* High levels of Biotin can falsely depress Troponin results. Many dietary supplements promoted for hair, skin, and nail benefits contain biotin levels up to 650 times the recommended daily intake of biotin. In addition to dietary supplements, Biotin is occasionally prescribed for medical conditions. H-Ferritin Reviewed date:01/24/2025 10:24:48 AM Interpretation: Performing Lab: Notes/Report: BROOK[place]NN 9.24 11.1-264 ng/ml H-Iron, TIBC, Iron Saturatio n Reviewed date:01/24/2025 10:24:48 AM Interpretation: Performing Lab: Notes/Report: FE 28 37-170 ug/dL DTIBC 335 265-497 ug/dL IRONSAT 8.40786 15-55 % H-BMP Reviewed date:01/24/2025 10:24:48 AM Interpretation: Performing Lab: Notes/Report: NA 140 136-145 mmol/L K 4.7 3.5-5.1 mmoL/L CL 108 98-107 mmol/L CO2 24 22.0-30.0 mmol/L GAP 12.7 5-15 mEq/L BUN 27 7-17 mg/dl CREATT 1.20 0.52-1.04 mg/dl CRCLE 50 50-200 mL/min GFRAA 53 >60 ML/MIN EGFR 44 >60 ml/min GLU 202 74-100 mg/dl CA 8.6 8.4-10.2 mg/dl H-CBC Reviewed date:01/24/2025 10:24:47 AM Interpretation: Performing Lab: Notes/Report: WBC 8.2 4.8-10.8 K/mm3 RBC 2.85 4.20-5.40 M/mm3 HGB 8.0 12.2-16.2 g/dL HCT 25.3 37.0-47.0 % MCV 88.8 81-99 fl MCH 28.1 27.0-31.2 pg MCHC 31.6 31.8-35.4 g/dL RDW-SD 49.8 RDW 15.5 11.5-17.5 % PLT 336 142-424 K/mm3 MPV 9.7 7.4-10.4 fl NE% 65.0 37.0-80.0 % LY% 19.2 10-50 % MO% 9.1 1.7-9.3 % EO% 5.8 0.1-12.0 % BA% 0.4 0.1-2.0 % NRBC% 0 IG% 0.5 NE# 5.4 1.8-7.8 K/mm3 LY# 1.6 0.7-4.5 K/mm3 MO# 0.8 0.1-1.0 K/mm3 EO# 0.5 0.0-0.4 Kmm3 BA# 0.0 0-0.2 K/mm3 NRBC# 0 IG# 0.04 H-BMP Reviewed date:07/18/2024 09:06:15 AM Interpretation: Performing [...] 1.2 0.0-0.4 K/mm3 BA# 0.1 0-0.2 K/mm3 P-T4 Free (thyroxine) Reviewed date:06/24/2024 08:26:05 AM Interpretation:0.52 Performing Lab: Notes/Report: Test performed by [facility] [address] [place] [address] , [address], [place] [address] Andrea Flores MD, Internal Review And Audit Compliance CLIA: [id number] Thyroxine Free (free T4) 0.52 0.86-1.76 ng/dL K-Lrqgtssn-N Reviewed date:06/24/2024 08:26:05 AM Interpretation:24 Performing Lab: Notes/Report: Test performed by [facility] [address] [place] [address] , [address], [place] [address] Andrea Flores MD, Internal Review And Audit Compliance CLIA: [id number] Troponin-T 24 <6-18 ng/L Patients who are prescribed biotin may exhibit elevated troponin results. Please interpret results accordingly. Reason For Referral No Information Medications Medication [...] a day A ctive FreeStyle Jg 3 [place] - as directed 08/19/2024 Active Eliquis 5 MG 1 tablet Orally Twic e a day for 90 days Active FreeStyle Jg 3 Plus Sensor - Apply one sensor every 14 days for 28 days 08/16/2024 Active Famotidine 20 MG TAKE 1 TABLET BY EMMA TH TWICE DAILY for 30 Active Immunizations Vaccine [...] Problem Status W/U Status Risk Notes Problem 78406790 Essential (primary) hypertension (I10) Active confirmed Problem 46446521 Hyperkalemia (E87.5) Active confirmed Problem 21784875 Essential hypertension (I10) Active confirmed Problem 843769099 BMI 30.0-30.9,adult (Z68.30) Active confirmed Problem 537967678 OAB (overactive bladder) (N32.81) Active confirmed Problem 066862344928119 Type 2 diabetes mellitus with hypoglycemia without coma (E11.649) Active confirmed Problem 121414493 Mixed hyperlipidemia (E78.2) Active confirmed Problem 51149391 Chronic pulmonar y edema (J81.1) Active confirmed Problem 454706928 senior living (current) use of insulin (Z79.4) Active confirmed Problem 46744882 Type 2 diabetes mellitus without complication (E11.9) Active confirmed Problem 665043805 Acquired hypothyroidism (E03.9) Active confirmed Problem 789666468 Non morbid obesi ty due to excess calories (E66.09) Active confirmed Problem 49090809 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) Active confirmed Problem 785042230 Anemia, unspecified type (D64.9) Active confirmed Problem 850258390 PAF (paroxysmal atrial fibrillation) (I48.0) Active confirmed Problem 79251931 Hyperlipidemia, unspecified hyperlipidemia type (E78.5) Active confirmed Problem 847308202847693 Atrial fibrillation with RVR (I48.91) Active confirmed Problem 152193994 Frequent falls (R29.6) Active confirmed Problem 441561700 TIA (transient ischemic attack) (G45.9) Active confirmed Problem 268307160 PAD (peripheral artery disease) (I73.9) Active confirmed Problem 543965054 Atherosclerosis of ely shoshone coronary artery without angina pectoris, unspecified whether ely shoshone or transplanted heart (I25.10) Active confirmed Problem 632086040 Bilateral caroti d artery stenosis (I65.23) Active confirmed Problem 83856766 Stenosis of carotid artery, unspecified laterality (I65.29) Active confirmed Problem 084348346 Non morbid obesi ty (E66.9) Active confirmed Problem 962361980 S/P coronary artery stent placement (Z95.5) Active confirmed Problem 375957938 Type 2 diabetes mellitus without complication, unspecified whether watermaster insulin use (E11.9) Active confirmed Problem 981823285 Uncontrolled typ e 2 diabetes mellitus with hyperglycemia (E11.65) Active confirmed Problem 359127155 Bilateral caroti d artery disease, unspecified type (I77.9) Active confirmed Problem 400233168 Carotid artery disease, unspecified laterality, unspecified type (I77.9) Active confirmed Problem 710456867 Stage 3a chronic kidney disease (N18.31) Active confirmed Problem 522343120 Urinary incontinence in female (R32) Active confirmed Vital Signs Heart Rate 79 /min 10/21/2024 Blood pressure diastolic 72 mm Hg 10/21/2024 Height 63 in 10/21/2024 Blood pressure systolic 122 mm Hg 10/21/2024 Weight 171.6 lbs 10/21/2024 BMI 30.39 kg/m2 10/21/2024 Encounters Encounter Location Date Provider Diagnosis [facility] [address] [facility] [address] [place], [place] [id number] 04/20/2024 Cosme Bunker Hill OAB (overactive blad rocio) N32.81 [facility] [address] [facility] [address] [place], [place] [id number] 06/22/2024 Cosme [place] Nausea and vomiting, unspecified vomiting type R11.2 ; Intermittent diarrhea R19.7 ; Urinary incontinence in female R32 ; Periumbilical pain R10.33 ; Type 2 diabetes mellitus without complication E11.9 and Acute UTI N39.0 [facility] [address] [facility] [address] [place], [place] [id number] 07/21/2024 Cosme [place] Nausea and vomiting, unspecified vomiting type R11.2 ; Anemia, unspecified type D64.9 ; Type 2 diabetes mellitus with hypoglycemia without coma E11.649 and senior living (current) use of insulin Z79.4 [facility] [address] [facility] [address] [place], [place] [id number] 08/31/2024 Cosme [place] Open wound of right heel, initial encounter S91.301A [facility] [address] [facility] [address] [place], [place] [id number] 10/21/2024 Cosme [place] Type 2 diabetes darren itus without complication E11.9 ; Essential hypertension I10 ; Stage 3a chronic kidney disease N18.31 ; Anemia, unspecified type D64.9 ; Acquired hypothyroidism E03.9 and Hyperlipidemia, unspecified hyperlipidemia type E78.5 [facility] [address] [place], [place] [id number] 06/24/2024 Cosme [place] [facility] [address] [place] [id number] 06/29/2024 Cosme [place] [facility] [address] [place] [id number] 07/22/2024 Cosme [place] [facility] [address] [place] [id number] 08/04/2024 Cosme [place] Hill [facility] [address] [place] [id number] 08/16/2024 Cosme [place] [facility] [address] [place] [id number] 08/19/2024 Cosme [place] [facility] [address] [place] [id number] 08/19/2024 Cosme [place] [facility] [address] [place] [id number] 08/25/2024 Cosme [place] [facility] [address] [place] [id number] 09/08/2024 Cosme [place] [facility] [address] [place] [id number] 09/08/2024 Cosme [place] Type 2 diabetes darren itus with hypoglycemia without coma E11.649 [facility] [address] [place] [id number] 10/07/2024 Cosme [place] [facility] [address] [place] [id number] 10/24/2024 Cosme [place] [facility] [address] [place] [id number] 01/25/2025 Cosme [place] Assessments Encounter Date Diagnosis (ICD Code) Assessment [...] hypoglycemia without coma (ICD-10 - E11.649) 07/21/2024 senior living (current) use of insulin (ICD-10 - Z79.4) [...] Cologuard 12/18/2021 Next Appt Details Provider Name:Cosme pérez, 02/08/2025 10:00:00 AM, [address] [facility], [address], [place], [place], [id number], Provider Name:Cosme Amos ry, 02/20/2025 01:30:00 PM, [address], [address], [place], [place], [id number], Insurance Providers Payer Name Payer Address Payer Phone Subscriber Number Group Number Insured Name Patient Relationship to Insured Coverage Start Date Coverage End Date [employer] (MEDICAR E) [address] [address] [place] [address] [phone] [id number] Yesi Fernandez Self - patient is the [...]
--- OUTSIDE RECORDS SUMMARY | 2025-01-30 12:28 | XMS_ITS | Clinical Summary ---
Author Organization Healthcare Address [address] [place] [address] Care Team Providers Care Doctor Of Optometry Name Role Phone Cosme Garcia MD Primary Care Provider + [phone] Allergies No known active allergies Medications metFORMIN [...] lisinopril. 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 No heavy lifting (greater than 5 [...] A1C 07/25/2021 01/25/2021 [facility]-Depression Screening 06/10/2022 06/10/2021 [id number] Vaccine (1 - 20 24-25 season) 2024 [...] this topic Medical Devices Implanted Type Area Voltage Tester Device Identifier Shelf Expiration Date Model / Serial / Lot Stent Transcarotid System 9mm X 30mm - [id number] Implanted:Qty: 1 on 03/06/2021 by Leo Saleh MD at [facility]-[id number] 03/09/2023 SR-0930-C S / / [id number] Stent Transcarotid System 8mm X 30mm - [id number] Implanted:Qty: 1 on 10/22/2021 by Leo Saleh MD at [facility] Left: Carotid [facility]-[id number] 02/07/2024 SR-0830-C S / / [id number] Procedures Procedure Name Priority Date/Time Associated Diagnosis [...] Adults <6.0% Children and Adolescents <7.5% Source: [place] [employer]. Standards of medical care in diabetes,2017. Diabetes Care.2017:40 (suppl 1):S1-S135. HbA1c assay performed by an ion-exchange chromatography method that is certified traceable to the DCCT. Bob Brown MD LAB BLOOD ORDERABLES Final Re sult Performing Organization Address City/[facility]/ZIP Co de Phone Number [facility] [address] [place] [address] * [place] Hepatitis C Antibody (01/25/2021 2:56 PM EDT) [facility] Hepatitis C Antibody Negative Negative 01/25/2021 5:15 PM EDT [facility] Blood Venous blood specimen / Unknown Venipuncture / Unknown 01/25/2021 2:56 PM EDT 01/25/2021 3:04 PM EDT Bob Brown MD LAB BLOOD ORDERABLES Final Re sult Performing Organization Address [facility]/ZIP Co de Phone Number [facility] [address] [place] [address] from Last 3 Months or Most Recently Relevant to Health Maintenance Insurance [facility] MEDIC[facility] Advance Directives Documents on File Type Date Recorded Patient It Project Manager Expl anation Advance Directives and Living Will 03/06/2021 Power of Podiatry Professor 01/25/2021 * Full Code (Latest Code Status on File) Date Activated Date Inactivated Comments 10/22/2021 10:32 AM 10/24/2021 5:12 PM Question Answer Comments Patient has decision-making capacity? Yes Care Teams Doctor Of Optometry Relationship Specialty Start Date End Date Cosme Garcia MD [address] [place] [address] PCP - General 01/24/21
[2025-01-30 12:57] LABS: Basophils % 0.5 % (0.1-2.0); Eosinophils # 0.6 Kmm3 (0.0-0.4); Eosinophils % 7.6 % (0.1-12.0); Hematocrit 27.5 % (37.0-47.0); Hemoglobin 8.5 g/dL (12.2-16.2); Immature Granulocytes # 0.06 10^3uL; Immature Granulocytes % 0.8 %; Lymphocytes # 1.6 K/mm3 (0.7-4.5); Lymphocytes % 21.4 % (10-50); Mean Corpuscular HGB Conc 30.9 g/dL (31.8-35.4); Mean Corpuscular Hemoglobin 27.7 pg (27.0-31.2); Mean Corpuscular Volume 89.6 fl (81-99); Mean Platelet Volume 9.7 fl (7.4-10.4); Monocytes # 0.5 K/mm3 (0.1-1.0); Monocytes % 6.6 % (1.7-9.3); Neutrophils # 4.7 K/mm3 (1.8-7.8); Neutrophils % 63.1 % (37.0-80.0); Nucleated Red Blood Cells # 0 10^3/uL; Nucleated Red Blood Cells % 0 %; Platelet Count 323 K/mm3 (142-424); Red Blood Count 3.07 M/mm3 (4.20-5.40); Red Cell Distribution Width 16.1 % (11.5-17.5); Red Cell Distribution Width-SD 51.3 fL; White Blood Count 7.5 K/mm3 (4.8-10.8)
== END 2025-01-30 23:59 | disposition home or self-care (01) ==
LOC: LAB 12:11
PROVIDERS: PCP Family Medicine; Visit Provider Nurse Practitioner Family
DX: I65.29 Occlusion and stenosis of unspecified carotid artery (principal)
CPT/HCPCS: 36415; 85025

== ENCOUNTER 2025-02-01 08:03 | Day surgery (SDC) | payer MEDICARE, OTHER, SELFPAY ==
[2025-02-01] VITALS (18 sets, daily range): BP systolic 130–178; BP diastolic 58–87; PULSE 58–88; RESP 15–20; O2SAT 2–98; BMI 31.8
--- NOTE | 2025-02-01 07:50 | IR_ITS ---
APPROVED REPORT Patient Location: Outpatient PROCEDURES Left heart catheterization Left ventriculogram Selective coronary angiogram INDICATION Known coronary artery disease, Accelerated angina pectoris, Recent inpatient non-ST elevation myocardial infarction Informed consent was obtained prior to the procedure. COMPLICATIONS None Estimated Blood Loss: Less than10 mls TECHNIQUE One percent lidocaine was used to anesthetize the right groin. The right femoral artery was accessed via the Seldinger technique. A 4-Maori sheath was placed in the right femoral artery. The JL-4 and JR-4 catheter was also used to perform left heart catheterization left ventriculogram and selective coronary angiogram. At the end of the procedure the patient was transferred to the post-op holding area in stable condition for arterial sheath removal. ANGIOGRAPHIC RESULTS The left main artery Has a stent in the ostial segment which extends throughout its course it is widely patent with minimal in-stent restenosis The left anterior descending artery Has a stent which originates off the left main artery and extends proximally. The ostial segment has hazy 20 to 30% stenosis the remaining LAD is widely patent The circumflex artery Massively large and dominant with a stent originating from the left main artery which has an ostial 30 to 40% concentric stenosis The right coronary artery Nondominant diffuse 10% luminal regularities The TINAJERO ventriculogram reveals Hyperdynamic 70% The left ventricular end-diastolic pressure 25 mmHg IMPRESSION Coronary disease as described above which currently is not flow-limiting however given the nature of the bifurcating stents is subject to ongoing in-stent restenosis Hyperdynamic ventricle Elevated LVEDP PLAN 1. Aggressive risk factor modification 2. Recommend stress Myoview in 6 months as I anticipate there may be progression of the bifurcating stents in the LAD and left main artery. 3. LDL less than 55 achieved high intensity statin 4. Avoidance of tobacco products Electronically signed by : Linwood Granger MD 02/01/2025 14:39:03
[2025-02-01 08:37] LABS: Basophils # 0.1 K/mm3 (0-0.2); Basophils % 0.9 % (0.1-2.0); Eosinophils # 0.7 Kmm3 (0.0-0.4); Eosinophils % 9.9 % (0.1-12.0); Hematocrit 27.1 % (37.0-47.0); Hemoglobin 8.3 g/dL (12.2-16.2); Immature Granulocytes # 0.05 10^3uL; Immature Granulocytes % 0.8 %; Lymphocytes # 1.6 K/mm3 (0.7-4.5); Lymphocytes % 24.4 % (10-50); Mean Corpuscular HGB Conc 30.6 g/dL (31.8-35.4); Mean Corpuscular Hemoglobin 27.4 pg (27.0-31.2); Mean Corpuscular Volume 89.4 fl (81-99); Mean Platelet Volume 9.5 fl (7.4-10.4); Monocytes # 0.6 K/mm3 (0.1-1.0); Monocytes % 8.6 % (1.7-9.3); Neutrophils # 3.7 K/mm3 (1.8-7.8); Neutrophils % 55.4 % (37.0-80.0); Nucleated Red Blood Cells # 0 10^3/uL; Nucleated Red Blood Cells % 0 %; Platelet Count 331 K/mm3 (142-424); Red Blood Count 3.03 M/mm3 (4.20-5.40); Red Cell Distribution Width 16.3 % (11.5-17.5); Red Cell Distribution Width-SD 52.7 fL; White Blood Count 6.7 K/mm3 (4.8-10.8)
--- NOTE | 2025-02-01 08:46 | SUR.PREOP ---
Family at bedside, no needs stated
[2025-02-01 09:03] LABS: Chloride 101 mmol/L (98-107); Potassium 4.1 mmoL/L (3.5-5.1); Sodium 140 mmol/L (136-145)
[2025-02-01 09:06] LABS: Anion Gap 15.1 mEq/L (5-15); Blood Urea Nitrogen 23 mg/dl (7-17); Carbon Dioxide 28 mmol/L (22.0-30.0); Creatinine Clearance Estimated 61 mL/min (50-200); Estimated Glomerular Filt Rate 54 ml/min (>60); GFR (African American) 65 ML/MIN (>60)
[2025-02-01 09:07] LABS: Calcium 9.5 mg/dl (8.4-10.2); Glucose 147 mg/dl (74-100)
[2025-02-01] MEDS: LIDOCAINE 1% 10ML MDV 10 ML IJ (10:58)
[2025-02-01] MEDS: diphenhydrAMINE 50MG/ML VIAL 50 MG IV (10:58)
[2025-02-01] MEDS: NITROGLYCERIN 800MCG/8ML SYR (CATH LAB) 800 MCG IA (10:58)
[2025-02-01] MEDS: VERAPAMIL 2.5MG/ML 2ML VIAL 2.5 MG IV (10:58)
[2025-02-01] MEDS: 0.9 % SODIUM CHLORIDE 500 ML 25 ML IV (10:58)
[2025-02-01] MEDS: HEPARIN 1,000 UNITS/ML 10ML VIAL (CATH LAB) 5000 UNIT IV (10:59)
[2025-02-01] MEDS: FENTANYL 100MCG/2ML VIAL 50 MCG IV (10:59)
[2025-02-01] MEDS: HEPARIN 1,000 UNITS/500ML NS (CATH LAB) 3000 UNIT IV (10:59)
[2025-02-01] MEDS: MIDAZOLAM HCL 1MG/ML 5ML VIAL 1 MG IV (11:01)
[2025-02-01] MEDS: ACETAMINOPHEN 325MG TAB 650 MG PO (12:22)
[2025-02-01] MEDS: IOPAMIDOL-370 (76%);100ML BOTTLE 50 ML IV (13:23)
== END 2025-02-01 14:52 | disposition home or self-care (01) ==
PROVIDERS: PCP Family Medicine; Visit Provider Internal Medicine
PROC: 4A023N7 Measurement of Cardiac Sampling and Pressure, Left Heart, Percutaneous Approach (ICD-10-PCS; CPT 93452; principal; 2025-02-01 07:30)
DX: I25.118 Atherosclerotic heart disease of native coronary artery with other forms of angina pectoris (principal); I70.213 Atherosclerosis of native arteries of extremities with intermittent claudication, bilateral legs; I48.0 Paroxysmal atrial fibrillation; R53.83 Other fatigue; E11.9 Type 2 diabetes mellitus without complications; I10 Essential (primary) hypertension; I65.23 Occlusion and stenosis of bilateral carotid arteries; E78.5 Hyperlipidemia, unspecified; D64.9 Anemia, unspecified; I25.2 Old myocardial infarction; Z95.5 Presence of coronary angioplasty implant and graft; Z86.73 Personal history of transient ischemic attack (TIA), and cerebral infarction without residual deficits; Z79.82 Long term (current) use of aspirin; Z79.01 Long term (current) use of anticoagulants; Z79.02 Long term (current) use of antithrombotics/antiplatelets; Z79.84 Long term (current) use of oral hypoglycemic drugs; Z79.4 Long term (current) use of insulin; Z79.890 Hormone replacement therapy; Z79.899 Other long term (current) drug therapy; Z88.8 Allergy status to other drugs, medicaments and biological substances; Z82.49 Family history of ischemic heart disease and other diseases of the circulatory system; Z82.3 Family history of stroke; W19.XXXA Unspecified fall, initial encounter
CPT/HCPCS: 93458; 80048; 85025; 99152; 99153; C1725; C1769; J1200; J1644; J2003; J3010; J7040; Q9967

== ENCOUNTER 2025-02-15 12:09 | Outpatient (CLI) | payer MEDICARE, OTHER, SELFPAY ==
[2025-02-15] VITALS (18 sets, daily range): BP systolic 111–161; BP diastolic 51–99; PULSE 90–99; RESP 16–20; TEMP 36.7–37.3; O2SAT 95–100
--- OUTSIDE RECORDS SUMMARY | 2025-02-15 12:11 | XMS_ITS | Clinical Summary ---
Author Organization Healthcare Address [address] [place] [address] Care Team Providers Care Slackman Name Role Phone Cosme Garcia MD Primary Care Provider [phone] Allergies No known active allergies Medications metFORMIN [...] lisinopril. Right groin access, left neck incision PARALEGAL ASSISTANT, WNL No heavy lifting (greater than 5 [...] Wellness (AWV) 1950 [facility]-/Child/Adol SDOH Screenings 1950 [id number] Vaccine (#1) 1954 [facility]-Obesity Intervention 1955 Diabetes: Dental Exam 1959 [facility]- SDOH Screenings 1967 [facility]-Adult SDOH Screenings 1967 [facility]-DTaP,Tdap,and Td Vaccine s (1 - Tdap) 1968 CT Colonography 1994 Colonoscopy 1994 FIT-DNA 1994 FIT 1994 FOBT 1994 Sigmoidoscopy 1994 [facility]-Colorectal Cancer Screening 1994 [facility]-Zoster Vaccines (1 of 2) 1999 [facility]-Diabetes: Hemoglobin A1C 07/25/2021 01/25/2021 [facility]-Depression Screening 06/10/2022 06/10/2021 [facility]-RSV Vaccine: 60+ Years o r (1 - 1-dose 75+ series) 2024 [facility]-Influenza Vaccine (#1) 2025 [facility]-Hepatitis C Screening Completed 01/25/2021 [facility]-Pneumococcal [...] this topic Medical Devices Implanted Type Area Manager Of Manufacturing Device Identifier Shelf Expiration Date Model / Serial / Lot Stent Transcarotid System 9mm X 30mm - [id number] Implanted:Qty: 1 on 03/06/2021 by Leo Saleh MD at [id number] 03/09/2023 SR-0930-C S / / [id number] Stent Transcarotid System 8mm X 30mm - [id number] Implanted:Qty: 1 on 10/22/2021 by Leo Saleh MD at [facility] Left: Carotid [facility] [id number] 02/07/2024 SR-[id number] S / / [id number] Procedures Procedure Name Priority Date/Time Associated Diagnosis [...] Adults <6.0% Children and Adolescents <7.5% Source: [place] [employer]. Standards of medical care in diabetes,2017. Diabetes Care.2017:40 (suppl 1):S1-S135. HbA1c assay performed by an ion-exchange chromatography method that is certified traceable to the DCCT. Bob Brown MD LAB BLOOD ORDERABLES Final Re sult Performing Organization Address City/[facility]/ZIP Co de Phone Number HEALTHCARE [facility] [address] [place] [address] * [place] Hepatitis C Antibody (01/25/2021 2:56 PM EDT) [facility] Hepatitis C Antibody Negative Negative 01/25/2021 5:15 PM EDT HEALTHCARE LAB Blood Venous blood specimen / Unknown Venipuncture / Unknown 01/25/2021 2:56 PM EDT 01/25/2021 3:04 PM EDT Bob Brown MD LAB BLOOD ORDERABLES Final Re sult Performing Organization Address City/[facility] Co de Phone Number HEALTHCARE [facility] [address] [place] [address] from Last 3 Months or Most Recently Relevant to Health Maintenance Insurance [facility] [place] [address] Advance Directives Documents on File Type Date Recorded Patient Test Man Expl anation Advance Directives and Living Will 03/06/2021 Power of Solar Consultant 01/25/2021 * Full Code (Latest Code Status on File) Date Activated Date Inactivated Comments 10/22/2021 10:32 AM 10/24/2021 5:12 PM Question Answer Comments Patient has decision-making capacity? Yes Care Teams Slackman Relationship Specialty Start Date End Date Cosme Garcia MD [address] [facility] [place] [address] [place] [address] PCP - General 01/24/21
[2025-02-15 12:57] LABS: Hematocrit 21.9 % (37.0-47.0); Immature Granulocytes % 0.5 %; Mean Corpuscular HGB Conc 29.7 g/dL (31.8-35.4); Mean Corpuscular Hemoglobin 26.7 pg (27.0-31.2); Mean Corpuscular Volume 90.1 fl (81-99); Nucleated Red Blood Cells % 0 %; Platelet Count 360 K/mm3 (142-424); Red Blood Count 2.43 M/mm3 (4.20-5.40); Red Cell Distribution Width-SD 53.6 fL; White Blood Count 7.3 K/mm3 (4.8-10.8)
[2025-02-15 13:14] LABS: Hemoglobin 6.5 g/dL (12.2-16.2)
--- NOTE | 2025-02-15 16:46 | PC.NURSE ---
1630-pt transported to ob room 280 to complete blood transfusion; report given to autumn caraballo rn.
[2025-02-15 17:17] LABS: POC Glucose,Bedside 290 (70-110)
[2025-02-15] MEDS: 0.9 % SODIUM CHLORIDE 250 ML 25 ML IV ×2 (17:45→19:23)
--- NOTE | 2025-02-15 19:05 | PC.NURSE ---
RN assisting patient to bathroom. Patient tolerated well, reports some dizziness upon ambulation. Stand-by assistance provided and patient assisted back to bed.
--- NOTE | 2025-02-15 20:05 | PC.NURSE ---
Patient sitting on side of bed and eating supper. Denies further needs at this time.
--- NOTE | 2025-02-15 21:25 | PC.NURSE ---
Blood transfusion complete at 2117. Patient verbalizes readiness for discharge. IV site covered with clear bandage, kerlix, and coban. Lab requisition paperwork given for CBC tomorrow.
== END 2025-02-15 21:45 | disposition home or self-care (01) ==
LOC: LAB 12:09 → INF 15:41
PROVIDERS: PCP Family Medicine; Visit Provider Nurse Practitioner Family
DX: D64.9 Anemia, unspecified (principal)
CPT/HCPCS: 36415; 36430; 82962; 85025; 86850; G0463; J7050; P9016

== ENCOUNTER 2025-02-16 12:06 | Outpatient (CLI) | payer MEDICARE, OTHER, SELFPAY ==
--- OUTSIDE RECORDS SUMMARY | 2024-10-21 05:30 | XMS_ITS ---
Author Organization [facility] Address [address] [facility] [address] [place] [phone] Care Team Providers Care Crew Person Name Role Phone Cosme Garcia Primary Care Provider Allergies No Known Allergies Results Component Value Reference Range Notes Glucose (In-House) Reviewed date:10/24/2024 12:19:30 PM Interpretation:140 Performing Lab: Notes/Report: 140 blood glucose 140 74 - 106 mg/dL CBC Venipuncture (in house) Reviewed date:10/24/2024 12:19:30 PM Interpretation:hgb 11.0, hct 32.3 Performing Lab: Notes/Report: hgb 11.0, hct 32.3 wbc 7.3 3.5 - 10 lymph 20.7% 15 - 50 mid 5.9% 2 - 15 gran 73.4% 35 - 80 rbc 3.47 3.5 - 5.5 hgb 11.0 11.5 - 16.5 hct 32.3 35 - 55 mcv 93.1 75 - 100 mch 31.7 25 - 35 mchc 34.1 31 - 38 platlet 333 100 - 400 Glycohemoglobin A1c (in hous e) Reviewed date:10/24/2024 12:19:30 PM Interpretation:7.3% Performing Lab: Notes/Report: 7.3% glycohemoglobin 7.3% 5 - 6.5 % P-Comprehensive Metabolic Pa luis (CMP) Reviewed date:10/24/2024 12:19:30 PM Interpretation:glu 111, BUN 27, Creat 1.20, GFR 47 Performing Lab: Notes/Report: Test performed by [facility] [address] [place] [address] , [address], [place] [address] Andrea Flores MD, Recycling Technician CLIA: [id number] Sodium 144 135-145 mmol/L Potassium 4.4 3.5-5.3 mmol/L Chloride 107 97-108 mmol/L CO2 26 22-32 mmol/L Glucose 111 65-99 mg/dL BUN 27 8-23 mg/dL Creatinine 1.20 0.50-1.00 mg/dL Calcium 9.3 8.6-10.4 mg/dL eGFR by Creatinine 47 >59 mL/min/1.73m2 Protein 7.2 6.0-8.3 g/dL Albumin 4.1 3.5-5.3 g/dL Alkaline Phosphatase 109 35-121 IU/L ALT (SGPT) 14 <5-47 IU/L AST (SGOT) 15 <5-40 IU/L Bilirubin, Total 0.4 <0.2-1.2 mg/dL A/G Ratio 1.3 1.1-2.5 P-T4 Free (thyroxine) Reviewed date:10/24/2024 12:19:30 PM Interpretation:Normal Performing Lab: Notes/Report: Test performed by [facility] [address] [place] [address] , [place] [address] Andrea Flores MD, Recycling Technician CLIA: [id number] Thyroxine Free (free T4) 1.66 0.86-1.76 ng/dL P-Iron Reviewed date:10/24/2024 12:19:30 PM Interpretation:Normal Performing Lab: Notes/Report: Test performed by [facility] [address] [place] [address] , [facility] [place] [address] Andrea Flores MD, Recycling Technician CLIA: [id number] Iron 42 37-145 ug/dL P-Lipid Panel Reviewed date:10/24/2024 12:19:30 PM Interpretation:Normal Performing Lab: Notes/Report: Test performed by [facility] [address] [place] [address] , [facility] [address] Andrea Flores MD, Recycling Technician CLIA: [id number] Cholesterol 167 <200 mg/dL Triglycerides 108 <150 mg/dL HDL Cholesterol 56 >39 mg/dL Cholesterol / HDL Ratio 2.98 0.00-4.44 Ratio Non-HDL Cholesterol 111 <130 mg/dL LDL Cholesterol (Calculation) 89 <130 mg/dL LDL Cholesterol Levels* Less than 100 mg/dL Optimal 100 to 129 mg/dL Near Optimal/ Above Optimal 130 to 159 mg/dL Borderline High 160 to 189 mg/dL High 190 mg/dL and above Very High * Categories as recommended by the 2004 ATPIII guidelines LDL/HDL Ratio 1.6 <3.3 Ratio LDL Cholesterol Patient History Test Date: 10/26/2023 LDL Results: 67 Units: mg/dL % Change: - Test Date: 10/21/2024 LDL Results: 89 Units: mg/dL % Change: +32% P-Phosphorus Reviewed date:10/24/2024 12:19:30 PM Interpretation:Normal Performing Lab: Notes/Report: Test performed by [facility] [address] [place] [address] [facility], [place] [address] Andrea Flores MD, Recycling Technician CLIA: [id number] Phosphorus 4.2 2.5-4.5 mg/dL P-TSH Reviewed date:10/24/2024 12:19:30 PM Interpretation:7.02 Performing Lab: Notes/Report: Test performed by [facility] [address] [place] [address] , [address], [place] [address] Andrea Flores MD, Recycling Technician CLIA: [id number] TSH 7.02 0.43-5.25 mU/L P-Microalbumin/Creatinine, R andom Urine Sample Reviewed date:10/24/2024 12:19:30 PM Interpretation:Album/Creat 65 Performing Lab: Notes/Report: Test performed by [facility] [address] [place] [address] , [address], [place] [address] Andrea Flores MD, Recycling Technician CLIA: [id number] Albumin/Creatinine Ratio, Urine 65 0-30 ug/m g Microalbumin, Urine, Random 3.5 Creatinine, Urine 54.1 REASON FOR VISIT 3 month and fasting Medications Medication SIG (Take, Route, Frequency, Duration) Notes Start Date End Date Status NovoLOG 100 UNIT/ML SLIDING SCALE BEFORE MEALS UNDER THE SKIN DIRECTED (MAX DAILY DOSE IS 75 UNITS) Active FreeStyle Jg 3 Plus Sensor - Apply one sensor every 14 days; Duration: 28 days 08/16/2024 Active Famotidine 20 MG TAKE 1 TABLET BY EMMA TWICE DAILY; Duration: 30 Active Pantoprazole Sodium 40 MG TAKE 1 TABLET BY MOUTH ONCE DAILY; Duration: 30 Active Ondansetron 4 MG 1 tablet on the tong ue and allow to dissolve Orally three times a day as needed Active Atorvastatin Calcium 80 MG 1 tab(s) oral ly once a day (at bedtime) Active FreeStyle Jg 3 Plus Sensor - as directed 07/21/2024 Active Eliquis 5 MG 1 tablet Orally Twic e a day; Duration: 90 days Active Accu-Chek Amanda Plus w/Device as directed 12/04/2023 Active Albuterol Sulfate HFA 108 (90 Base) MCG/ACT 1 puff as needed Inhalation every 4 hrs, prn 11/18/2023 Active Metoprolol Tartrate 25 MG 1/2 tablet Ora lly Twice a day Active Lisinopril 10 MG 1 tab(s) orally once a day Active Lantus SoloStar 100 UNIT/ML 40 to 50 units Subcutaneous Two times a day 08/12/2023 Active BD Pen Needle Short U/F 31 GUAGE X 5/16 INCH 1 PEN NEEDLE ONCE A DAY; Duration: 90 DAYS 03/08/2020 Active BD PEN NEEDLE 29G X3/16 (AUTOSHIELD) 1 SUBCUTANEOUSLY QID; Duration: 90 DAYS 03/19/2021 Active BD Swab Single Use Regular - 1 swab(s) fingerstick test 2 times a day; Duration: 90 days 12/19/2015 Active Vitamin B-12 1000 MCG 1 tab(s) orally once a day 0 03/09/2019 Active metFORMIN HCl 1000 MG 1 tab(s) orally 2 times a day Active Jardiance 25 MG 1 tab(s) orally once a day (in the morning) Active Levothyroxine Sodium 100 MCG 1 tablet in the morning on an empty stomach Orally Once a day Active oxyBUTYnin Chloride ER 5 MG TAKE 1 TABLET BY MOUTH ONCE DAILY; Duration: 30 Active Vitamin D3 50 MCG (2000 UT) 2 tab(s) orally once a day 03/09/2019 A ctive Clopidogrel Bisulfate 75 MG TAKE 1 TABLET EVERY DAY; Duration: 90 Active Aspirin Adult Low Dose 81 MG 1 tab(s) orally once a day A ctive FreeStyle Jg 3 Felt - as directed 08/19/2024 Active Accu-Chek Amanda Plus - 1 strip(s) finger stick 2 times a day or as directed; Duration: 30 day(s) E11.9 Active Vital Signs Weight 171.6 lbs 10/21/2024 Blood pressure systolic 122 mm Hg 10/22/19 25 Blood pressure diastolic 72 mm Hg 025 Heart Rate 79 /min 10/21/2024 Height 63 in 10/21/2024 BMI 30.39 kg/m2 10/21/2024 Encounters Encounter Location Date Provider Diagnosis [facility] [address] [place], [place] [phone] 10/21/2024 Cosme Garcia Type 2 diabetes darren itus without complication E11.9 ; Essential hypertension I10 ; Stage 3a chronic kidney disease N18.31 ; Anemia, unspecified type D64.9 ; Acquired hypothyroidism E03.9 and Hyperlipidemia, unspecified hyperlipidemia type E78.5 Assessments Encounter Date Diagnosis (ICD Code) Assessment Notes Treatment Notes Treatment Clinical Notes Section Notes 10/21/2024 Type 2 diabetes mellitus without complication (ICD-10 - E11.9) 10/21/2024 Essential hypertension (ICD-10 - I10) 10/21/2024 Stage 3a chronic kidney disease (ICD-10 - N18.31) 10/21/2024 Anemia, unspecified type (ICD-10 - D64.9) 10/21/2024 Acquired hypothyroidism (ICD-10 - E03.9) 10/21/2024 Hyperlipidemia, unspecified hyperlipidemia type (ICD-10 - E78.5) Plan Of Treatment Medication Medication Name Sig Start Date Stop Date Notes Atorvastatin Calcium 80 MG 1 tab(s) oral ly once a day (at bedtime) Metoprolol Tartrate 25 MG 1/2 tablet Orally Twice a day Lisinopril 10 MG 1 tab(s) orally once a day Lantus SoloStar 100 UNIT/ML 40 to 50 uni ts Subcutaneous Two times a day 08/12/2023 metFORMIN HCl 1000 MG 1 tab(s) orally 2 times a day Jardiance 25 MG 1 tab(s) orally once a day (in the morning) Levothyroxine Sodium 100 MCG 1 tablet in the morning on an empty stomach Orally Once a day Next Appt Details Follow Up: 4 Months, Reason: Provider Name:Cosme Amos ry, 03/27/2025 09:30:00 AM, [address] [facility], [address], [place], [place], [id number], Progress Notes * Alec FERNANDEZOB: 9 (74 yo F)Acc No.[id number]:10/21/2024 Progress Notes Patient: Yesi UGALDE Provider: Damion Garcia M.D. :1950 A ge:74 Y S ex:Female Date:10/21/2024 Address:[address] [place] [address] [id number] Subjective: * Chief Complaints: * 1 . 3 month and fasting. * HPI: E ndocrinology: 74 year old female presents with c/o Recent Blood Sugars P t here to f/u on DM 2. * ROS: D ERMATOLOGY: no R evan. n o H yahaira. G ASTROENTEROLOGY: no N ausea. n o [...] tablet Orally Twice a day , Taking FreeStyle Jg 3 Plus Sensor - Miscellaneous as directed , Taking Lantus SoloStar 100 UNIT/ML Solution Pen-injector 40 to 50 units Subcutaneous Two times a day , Taking metFORMIN HCl 1000 MG Tablet 1 tab(s) orally 2 times a day , Taking NovoLOG 100 UNIT/ML Solution SLIDING SCALE BEFORE MEALS UNDER THE SKIN DIRECTED (MAX DAILY DOSE IS 75 UNITS) , Taking Ondansetron 4 MG Tablet Disintegrating 1 tablet on the tongue and allow to dissolve Orally three times a day as needed , Taking Pantoprazole Sodium 40 MG Tablet [...] to Pharmacist: E11.9, Taking FreeStyle Jg 3 Felt - Device as directed , Taking Jardiance 25 MG Tablet 1 tab(s) orally once a day (in the morning) , Taking Levothyroxine Sodium 100 MCG Tablet 1 tablet in the morning on an empty stomach Orally Once a day , Taking Clopidogrel Bisulfate 75 MG Tablet TAKE 1 TABLET EVERY DAY , Taking oxyBUTYnin Chloride ER 5 MG Tablet Extended Release 24 Hour TAKE 1 TABLET BY MOUTH ONCE DAILY , Discontinued Mupirocin 2 % Ointment APPLY TO AFFECTED AREA EXTERNALLY TWICE A DAY , Medication List reviewed and reconciled with the patient * Allergies: N .K.D.A. Objective: * Vitals: W t:171.6, Temp:97.8, BP:122/72, HR:79, Nurse:michael, Ht: 63, BMI:30.39. * Examination: G eneral Examination: General Appearance: N AD. H eart: R SR. L ungs:?clear to auscultation. Assessment: * Assessment: 1. T ype 2 diabetes mellitus without complication - E11.9 (Primary) 2 . E ssential hypertension - I10 3 . S tage 3a chronic kidney disease - N18.31 ? 4 . A nemia, unspecified type - D64.9 5 . A cquired hypothyroidism - E03.9 6 . H yperlipidemia, unspecified hyperlipidemia type - E78.5 ? Plan: * Treatment: Value Reference Range A /G Ratio 1.3 1.1-2.5 - * A lbumin 4.1 3.5-5.3 - g/dL * A lkaline Phosphatase 109 35-121 - IU/L * A LT (SGPT) 14 <5-47 - IU/L * A ST (SGOT) 15 <5-40 - IU/L * B ilirubin, Total 0.4 <0.2-1.2 - mg/dL * B UN 27 H 8-23 - mg/dL * C alcium 9.3 8.6-10.4 - mg/dL * C hloride 107 97-108 - mmol/L * C O2 26 22-32 - mmol/L * C reatinine 1.20 H 0.50-1.00 - mg/dL * G lucose 111 H 65-99 - mg/dL * P otassium 4.4 3.5-5.3 - mmol/L * S odium 144 135-145 - mmol/L * P rotein 7.2 6.0-8.3 - g/dL * e GFR by Creatinine 47 L >59 - mL/min/1.73m2 * Loraine Escalante 10/24/2024 12: 19:08 PM > see TE ?LAB: P-Microalbumin/Creatinine, Random Urine Sample (Collection Date & Time - 10/21/2024 10:33 AM)?Album/Creat 65* Value Reference Range A lbumin/Creatinine Ratio, Urine 65 H 0-30 - ug /mg * C reatinine, Urine 54.1 - mg/dL * M icroalbumin, Urine, Random 3.5 - mg/dL * Loraine Escalante 10/24/2024 12: 19:08 PM > see TE ?LAB: Glucose (In-House) (Collection Date & Time - 10/21/2024)?140* Value Reference Range b lood glucose 140 74 - 106 mg/dL * Gracia Muñoz 10/21/2024 11:02:2 3 AM > Loraine Escalante 10/24/2024 12:19:08 PM > see TE ?LAB: Glycohemoglobin A1c (in house) (Collection Date & Time - 10/21/2024)? 7.3%* Value Reference Range g lycohemoglobin 7.3% 5 - 6.5 % * Ruperto Muñozira 10/21/2024 11:02:4 2 AM > Loraine Escalante 10/24/2024 12:19:08 PM > see TE 2.?Essential hypertension? Continue Lisinopril Tablet, 10 MG, 1 tab(s), orally, once a day;?Continue Metoprolol Tartrate Tablet, 25 MG, 1/2 tablet, Orally, Twice a day.??3.?Stage 3a chronic kidney disease? Continue Jardiance Tablet, 25 MG, 1 tab(s), orally, once a day (in the morning).?LAB: P-Comprehensive Metabolic Panel (CMP) (Collection Date & Time - 10/21/2024 10:33 AM)?glu 111, BUN 27, Creat 1.20, GFR 47* Value Reference Range A /G Ratio 1.3 1.1-2.5 - * A lbumin 4.1 3.5-5.3 - g/dL * A lkaline Phosphatase 109 35-121 - IU/L * A LT (SGPT) 14 <5-47 - IU/L * A ST (SGOT) 15 <5-40 - IU/L * B ilirubin, Total 0.4 <0.2-1.2 - mg/dL * B UN 27 H 8-23 - mg/dL * C alcium 9.3 8.6-10.4 - mg/dL * C hloride 107 97-108 - mmol/L * C O2 26 22-32 - mmol/L * C reatinine 1.20 H 0.50-1.00 - mg/dL * G lucose 111 H 65-99 - mg/dL * P otassium 4.4 3.5-5.3 - mmol/L * S odium 144 135-145 - mmol/L * P rotein 7.2 6.0-8.3 - g/dL * e GFR by Creatinine 47 L >59 - mL/min/1.73m2 * Loraine Escalante 10/24/2024 12: 19:08 PM > see TE ?LAB: P-Phosphorus (Collection Date & Time - 10/21/2024 10:33 AM)?Normal* Value Reference Range P hosphorus 4.2 2.5-4.5 - mg/dL * Loraine Escalante 10/24/2024 12: 19:08 PM > see TE 4.?Anemia, unspecified type?LAB: P-Iron (Collection Date & Time - 10/21/2024 10:33 AM)?Normal* Value Reference Range I heath 42 37-145 - ug/dL * Loraine Escalante 10/24/2024 12: 19:08 PM > see TE ?LAB: CBC Venipuncture (in house) (Collection Date & Time - 10/21/2024)?hgb 11.0, hct 32.3* Value Reference Range w bc 7.3 3.5 - 10 * l ymph 20.7% 15 - 50 * m id 5.9% 2 - 15 * g ran 73.4% 35 - 80 * r bc 3.47 3.5 - 5.5 * h gb 11.0 11.5 - 16.5 * h ct 32.3 35 - 55 * m cv 93.1 75 - 100 * m ch 31.7 25 - 35 * m chc 34.1 31 - 38 * p latlet 333 100 - 400 * Gracia Muñoz 10/21/2024 11:01:3 7 AM > Ava Loraine 10/24/2024 12:19:08 PM > see TE 5.?Acquired hypothyroidism? Continue Levothyroxine Sodium Tablet, 100 MCG, 1 tablet in the morning on an empty stomach, Orally,Once a day.?LAB: P-T4 Free (thyroxine) (Collection Date & Time - 10/21/2024 10:33 AM)? Normal* Value Reference Range T hyroxine Free (free T4) 1.66 0.86-1.76 - ng/d L * Ava Loraine 10/24/2024 12: 19:08 PM > see TE ?LAB: P-TSH (Collection Date & Time - 10/21/2024 10:33 AM)?7.02* Value Reference Range T SH 7.02 H 0.43-5.25 - mU/L * Loraine Escalante 10/24/2024 12: 19:08 PM > see TE 6.?Hyperlipidemia, unspecified hyperlipidemia type? Continue Atorvastatin Calcium Tablet, 80 MG, 1 tab(s), orally, once a day (at bedtime).?LAB: P-Comprehensive Metabolic Panel (CMP) (Collection Date & Time - 10/21/2024 10:33 AM)?glu 111, BUN 27, Creat 1.20, GFR 47* Value Reference Range A /G Ratio 1.3 1.1-2.5 - * A lbumin 4.1 3.5-5.3 - g/dL * A lkaline Phosphatase 109 35-121 - IU/L * A LT (SGPT) 14 <5-47 - IU/L * A ST (SGOT) 15 <5-40 - IU/L * B ilirubin, Total 0.4 <0.2-1.2 - mg/dL * B UN 27 H 8-23 - mg/dL * C alcium 9.3 8.6-10.4 - mg/dL * C hloride 107 97-108 - mmol/L * C O2 26 22-32 - mmol/L * C reatinine 1.20 H 0.50-1.00 - mg/dL * G lucose 111 H 65-99 - mg/dL * P otassium 4.4 3.5-5.3 - mmol/L * S odium 144 135-145 - mmol/L * P rotein 7.2 6.0-8.3 - g/dL * e GFR by Creatinine 47 L >59 - mL/min/1.73m2 * Loraine Escalante 10/24/2024 12: 19:08 PM > see TE ?LAB: P-Lipid Panel (Collection Date & Time - 10/21/2024 10:33 AM)?Normal* Value Reference Range C holesterol / HDL Ratio 2.98 0.00-4.44 - Ratio * C holesterol 167 <200 - mg/dL * H DL Cholesterol 56 >39 - mg/dL * L DL Cholesterol (Calculation) 89 <130 - mg/d L * L DL/HDL Ratio 1.6 <3.3 - Ratio * N on-HDL Cholesterol 111 <130 - mg/dL * T riglycerides 108 <150 - mg/dL * Loraine Escalante 10/24/2024 12: 19:08 PM > see TE * Procedure Codes: G 2211 Complex e/[place] [address] GLUCOSE TEST, 47832 GLYCATED HEMOGLOBIN TEST, Modifiers: QW , [address]270 CBC WITH AUTO DIFF, 3051F HG A1C>EQUAL 7.0%<8.0%, G8752 MOST RECENT SYSTOLIC BP < 140MM HG, G8754 MOST RECENT DIASTOLIC BP < 90MM HG * Follow Up: 4 Months * Images: Billing Information: * Visit Code: 38739 Office Visit, Est Pt., Level 4. * Procedure Codes: G2211 Complex e/[place]. [address] GLU[place]SE [address]. 40509 GLYCATED HEMOGLOBIN TEST. Modifiers: QW 23190 CBC WITH AUTO DIFF. 3051F HG A1C>EQUAL 7.0%<8.0%. G8752 MOST RECENT SYSTOLIC BP < 140MM HG. G8754 MOST RECENT DIASTOLIC BP < 90MM HG. * Electronic signature of Carol Garcia MD on 02/16/2025 at 12:10 PM EDT Sign off status: Pending * Provider: Damion Garcia M.D. Date: 0 10/21/2024 Generated for Alexander camp/Vamsi/Jakobitting on: 0 02/16/2025 12:10 PM EDT History and Physical Notes * HPI (History of Present Illness) Category Sub-Category Detail Notes Category Not es Endocrinology Recent Blood Sugars Pt here to f/u on DM 2 Examination Category Sub-Category Detail Notes Category Not es General Examination Heart: RSR Lungs: clear to auscultatio n General Appearance: NAD
--- OUTSIDE RECORDS SUMMARY | 2025-02-09 07:00 | XMS_ITS ---
Author Organization [facility] Address [facility] [facility] [address] [place] [phone] Care Team Providers Care Last Model Maker Name Role Phone Cosme Garcia Primary [...] 394 100 - 400 REASON FOR VISIT [facility] d/c f/u Medications Medication SIG (Take, Route, [...] UNITS) Active Mupirocin 2 % 1 application Airworthiness Safety Inspector ally Twice a day 02/09/2025 Active BD [...] DAILY; Duration: 30 Active FreeStyle Jg 3 [place] - as directed 08/19/2024 Active FreeStyle Jg 3 Plus Sensor - Apply one sensor every 14 days; Duration: 28 days 08/16/2024 Active Problems Problem Type SNOMED Code ICD Code Onset Dates Problem Status W/U Status Risk Notes Problem Iron deficiency anemia due to chronic blood loss (221543298) Iron deficiency anemia due to chronic blood loss (D50.0) Active confirmed Vital Signs Weight 173 lbs 02/09/2025 Blood pressure systolic 122 mm Hg 02/10/20 25 Blood pressure diastolic 72 mm Hg 025 Heart Rate 81 /min 02/09/2025 Height 63 in 02/09/2025 BMI 30.64 kg/m2 02/09/2025 Encounters Encounter Location Date Provider Diagnosis [facility] [address] [facility] [address] [place] [id number] 02/09/2025 Cosme Garcia Iron deficiency anem ia due to chronic blood loss D50.0 ; Gastrointestinal hemorrhage, unspecified gastrointestinal hemorrhage type K92.2 and Open wound of left lower leg, initial encounter S81.802A Assessments Encounter Date Diagnosis (ICD Code) Assessment Notes Treatment Notes Treatment Clinical Notes Section Notes 02/09/2025 Iron deficiency anemia due to chronic blood loss (ICD-10 - D50.0) 02/09/2025 Gastrointestinal hemorrhage, unspecified gastrointestinal hemorrhage type (ICD-10 - K92.2) Patient has follow up schedules with Dr. Lewis 02/09/2025 Open wound of left lower leg, initial encounter (ICD-10 - S81.802A) 02/09/2025 Other Discharge summary with available lab/diagnostic [...] with Dr. Lewis Other Discharge summary wi available lab/diagnostic imaging results obtained and reviewed. Discharge medication list reconciled. Appropriate counseling provided. Moderate Complexity Next Appt Details Follow Up: 4 to 6 Weeks, [place] son: Provider Name:Cosme Amos ry, 03/27/2025 09:30:00 AM, [address], [address], [place], [id number], Progress Notes * Alec FERNANDEZOB: 9 (74 yo F)Acc No.[id number]:02/09/2025 Patient: Yesi UGALDE Provider: Damion Garcia M.D. :1950 A ge:74 Y S ex:Female Date:02/09/2025 Address:[place], [id number] Subjective: * Chief Complaints: * 1 . [facility] d/c f/u. * HPI: H PI: Patient is here today for a Transition of Care Visit. [facility] Deficiency [...] 14 days , Taking FreeStyle Jg 3 [place] - Device as directed , Taking Jardiance [...] of left lower leg, initial encounter - S81.803X Plan: * Treatment: Value Reference Range w [...] G 2211 Complex e/[place], [address] [facility] 14 DAY DISCH, 1111F [facility] MED/CURENT MED MERGE, [address] CAPILLARY BLOOD DRAW, 13686 CBC WITH AUTO DIFF * Follow Up: 4 to 6 Weeks * Images: Billing Information: * Visit Code: 41653 Office Visit, Est Pt., Level 4. * Procedure Codes: G2211 Complex e/[place]. [address] [facility] 14 DAY DISCH. 1111F [facility] MED/CURENT MED MERGE. 61433 CAPILLARY BLOOD DRAW. 91507 CBC WITH AUTO DIFF. * Electronic signature of Carol Garcia MD on 02/16/2025 at 12:10 PM EDT Sign off status: Pending * Provider: Damion Garcia M.D. Date: 02/09/2025 Generated for Alexander camp/Vamsi/Yung on: 02/16/2025 12:10 PM EDT History and Physical Notes * HPI (History of Present Illness) Category Sub-Category Detail Notes Category Not es HPI Patient is here today for a [facility] sition of Care Visit. Discharge [facility] the [facility] diagnosis [facility] Iron Deficiency [...]
--- OUTSIDE RECORDS SUMMARY | 2025-02-15 07:05 | XMS_ITS ---
Author Organization Cade Address [address] [facility] 36 [facility] [address] [place] [id number] Care Team Providers Care Visual Stylist Name Role Phone Cosme Garcia Primary Care Provider [phone] Results Component Value Reference Range Notes Type [...] Encounter Location Date Provider Diagnosis [facility] [facility] 36 [facility] [address] [place] [id number] 02/15/2025 Cosme Garcia Iron deficiency anem ia [...] 03/27/2025 09:30:00 AM, [address] [facility], [address], [place], [id number], Progress Notes * Alec FERNANDEZOB: 9 (74 yo F)Acc No.[id number]:02/15/2025 Patient: Surendra UGALDEannie :1950 A ge:74 Y S ex:Female Address:[facility] [place], [address] * Refills Start Transfuse 2 Units PRBC [...] * true * Date: Generated for Alexander camp/Vamsi/Jakobitting on: 0 02/16/2025 12:09 PM EDT
[2025-02-16 12:08] VITALS: BMI 31.4
--- OUTSIDE RECORDS SUMMARY | 2025-02-16 12:10 | XMS_ITS | Patient Health Record ---
Author Organization [facility] Address [address] [facility] [address] [place] [id number] Care Team Providers Care Block Stacker Name Role Phone Cosme Garcia Primary Care Provider Allergies No Known Allergies Results Component Value Reference Range Notes Type and Cross 2 units PRBC Reviewed date:02/16/2025 09:46:08 AM Interpretation: Performing Lab: Notes/Report: CBC Fingerstick (in house) Reviewed date:02/09/2025 03:06:35 [...] - 38 plat 394 100 - 400 H-Troponin I Reviewed date:01/24/2025 10:24:48 AM Interpretation: Performing Lab: Notes/Report: TROP 0.56 0.00-0.034 ng/ml CRITICAL RESULT Results called and read back/verified to: [facility] on 01/24/25 at 0710 By Nereida Matias, POLYETHYLENE BAG MACHINE OPERATOR <0.012-0.034 ng/mL NORMAL 0.035 - >0.120 ng/mL [...] 37-170 ug/dL DTIBC 335 265-497 ug/dL IRONSAT 8.03910 15-55 % H-BMP Reviewed date:01/24/2025 10:24:48 AM [...] 0.0 0-0.2 K/mm3 NRBC# 0 IG# 0.04 P-TSH Reviewed date:10/24/2024 12:19:30 PM Interpretation:7.02 Performing Lab: Notes/Report: Test performed by [facility] [address] , [address], [place] [address] Andrea Flores MD, Sfdc Technical Architect CLIA: [id number] TSH 7.02 0.43-5.25 mU/L P-Phosphorus Reviewed date:10/24/2024 12:19:30 PM Interpretation:Normal Performing Lab: Notes/Report: Test performed by [facility] [address] [place] [address] , [address], [place] [address] Andrea Flores MD, Sfdc Technical Architect CLIA: [id number] Phosphorus 4.2 2.5-4.5 mg/dL P-Lipid Panel Reviewed date:10/24/2024 12:19:30 PM Interpretation:Normal Performing Lab: Notes/Report: Test performed by [facility] [address] [place] [address] , [address], [place] [address] Andrea Flores MD, Sfdc Technical Architect CLIA: [id number] Cholesterol 167 <200 mg/dL Triglycerides 108 <150 [...] Interpretation:Normal Performing Lab: Notes/Report: Test performed by [facility] [address] [place], [place] [address] [address] [employer] [address] [place] [address] Andrea Flores MD, Sfdc Technical Architect CLIA: [id number] Iron 42 37-145 ug/dL P-T4 Free (thyroxine) Reviewed date:10/24/2024 12:19:30 PM Interpretation:Normal Performing Lab: Notes/Report: Test performed by [facility] [address] [place], [place] [address] [place] [address] Andrea Flores MD, Sfdc Technical Architect CLIA: [id number] Thyroxine Free (free T4) 1.66 0.86-1.76 ng/dL P-Comprehensive Metabolic Pa luis (CMP) Reviewed date:10/24/2024 12:19:30 PM Interpretation:glu 111, BUN 27, Creat 1.20, GFR 47 Performing Lab: Notes/Report: Test performed by [facility], [address] , [address], [place] [address] Andrea Flores MD, Sfdc Technical Architect CLIA: [id number] Sodium 144 135-145 mmol/L Potassium 4.4 3.5-5.3 [...] blood glucose 140 74 - 106 mg/dL H-TSH Reviewed date:07/15/2024 10:22:34 AM Interpretation:79.3 Performing [...] BUN 18 7-17 mg/dl Delta: 43 on 12/05/24-1155 CREATT 1.20 0.52-1.04 mg/dl Delta: 1.70 on 07/14/24 CRCLE 49 50-200 mL/min GFRAA 53 >60 ML/MIN Delta: 35 on 07/14/24 EGFR 44 >60 ml/min GLU 95 74-100 mg/dl CA 8.2 8.4-10.2 mg/dl Urinalysis - Inhouse Reviewed date:04/20/2024 12:19:49 PM Interpretation: Performing Lab: Notes/Report: Color/Clarity yellow/clear Leuk neg Nitrite neg Urobili 3.2 Protein neg pH 5.5 Blood neg Sp. Gr. 1.020 Ketone neg Bili neg Gluc 2+ Urinalysis - Inhouse Reviewed date:06/22/2024 12:45:35 PM [...] Interpretation:26 Performing Lab: Notes/Report: Test performed by [facility] [address] [place] [address] , [address], [place] [address] Andrea Flores MD, Sfdc Technical Architect CLIA: [id number] Amylase 26 28-100 U/L P-Comprehensive Metabolic Pa luis (CMP) Reviewed date:06/24/2024 08:26:05 AM Interpretation:gluc 264, Cr 1.58, gfr 34 Performing Lab: Notes/Report: Test performed by [facility] [address] [place] [address] , [place] [address] Andrea Flores MD, Sfdc Technical Architect CLIA: [id number] Sodium 140 135-145 mmol/L Potassium 4.6 3.5-5.3 [...] Interpretation:sensitive Performing Lab: Notes/Report: Test performed by [facility] [address] [place] [address] , [place] [address] Andrea Flores MD, Sfdc Technical Architect CLIA: [id number] Specimen Source Urine - Void Culture, Urine [...] Interpretation:0.52 Performing Lab: Notes/Report: Test performed by [facility] [address] [place] [address] , [place] [address] Andrea Flores MD, Sfdc Technical Architect CLIA: [id number] Thyroxine Free (free T4) 0.52 0.86-1.76 ng/dL P-Lipase Reviewed date:06/24/2024 08:26:05 AM Interpretation:9.9 Performing Lab: Notes/Report: Test performed by [facility] [address] , [place] [address] Andrea Flores MD, Sfdc Technical Architect CLIA: [id number] Lipase 9.9 13.0-60.0 u/L P-Troponin I Reviewed date:06/24/2024 08:24:15 AM Interpretation: Performing Lab: Notes/Report: J-Gnranvyi-I Reviewed date:06/24/2024 08:26:05 AM Interpretation:24 Performing Lab: Notes/Report: Test performed by [facility] [address] , [place] [address] Andrea Flores MD, Sfdc Technical Architect CLIA: [id number] Troponin-T 24 <6-18 ng/L Patients who are prescribed biotin may exhibit elevated troponin results. Please interpret results accordingly. P-TSH reflex to FT4 Reviewed date:06/24/2024 08:26:05 AM Interpretation:95.3 Performing Lab: Notes/Report: Test performed by [facility] [address] [place] [address] , [address], [place] [address] Andrea Flores MD, Sfdc Technical Architect CLIA: [id number] TSH reflex to FT4 95.30 0.43-5.25 mU/L CBC Venipuncture (in house) Reviewed date:07/26/2024 03:18:46 PM Interpretation: Performing Lab: Notes/Report: P-Comprehensive Metabolic Pa luis (CMP) Reviewed date:07/22/2024 10:58:36 AM Interpretation:gluc 249, bun 25, Cr 1.23, gfr 46 Performing Lab: Notes/Report: Test performed by [facility] [address] [place] [address] , [address], [place] [id number] Andrea Flores MD, Sfdc Technical Architect CLIA: [id number] Sodium 139 135-145 mmol/L Potassium 4.5 3.5-5.3 [...] Interpretation:Normal Performing Lab: Notes/Report: Test performed by [facility] [address] [place] [address] [address], [address], [place] [address] Andrea Flores MD, Sfdc Technical Architect CLIA: [id number] Iron 65 37-145 ug/dL Transferrin 244 200-360 mg/dL Transferrin Saturation Percentage 19 15-50 % P-Reticulocyte Count Reviewed date:07/22/2024 10:58:36 AM Interpretation:2.2 Performing Lab: Notes/Report: Test performed by [facility] [address] , [place] [address] Andrea Flores MD, Sfdc Technical Architect CLIA: [id number] Reticulocyte Count 2.2 0.5-2.1 % P-Microalbumin/Creatinine, R andom Urine Sample Reviewed date:10/24/2024 12:19:30 PM Interpretation:Album/Creat 65 Performing Lab: Notes/Report: Test performed by [facility] [address] , [place] [address] Andrea Flores MD, Sfdc Technical Architect CLIA: [id number] Albumin/Creatinine Ratio, Urine 65 0-30 ug/mg Microalbumin, Urine, Random 3.5 Creatinine, Urine 54.1 Reason For Referral No Information Medications Medication SIG (Take, Route, Frequency, Duration) Notes Start Date End Date Status Venofer 20 MG/ML 5 mL Intravenous; Duration: 30 day(s) 02/09/2025 Active Famotidine 20 MG TAKE 1 TABLET [...] once a day (in the morning) Active FreeStyle Jg 3 [place] - as directed 08/19/2024 Active FreeStyle Jg 3 Plus Sensor - Apply one sensor every 14 days; Duration: 28 days 08/16/2024 Active FreeStyle Jg 3 Plus Sensor - as directed 07/21/2024 Active Accu-Chek Amanda Plus w/Device as directed 12/04/2023 Active oxyBUTYnin Chloride ER 5 MG 1 tablet Orally Once a day; Duration: 90 days Active Feosol Bifera 28 MG 1 tablet Orally Once a day; Duration: 90 days 10/31/2024 Active Atorvastatin Calcium 80 MG 1 tab(s) oral ly once a day (at bedtime) Active Metoprolol Tartrate 25 MG 1/2 tablet Ora lly Twice a day Active Transfuse 2 Units PRBC 2 units transfuse 2 units, then 1 hour post transfusion perform H and H IV 02/15/2025 Active Albuterol Sulfate HFA 108 (90 Base) MCG/ACT 1 puff as needed Inhalation every 4 hrs, prn 11/18/2023 Active Lisinopril 10 MG 1 tab(s) orally once a day Active Accu-Chek Amanda Plus - 1 strip(s) [...] e a day; Duration: 90 days Active Vitamin D3 50 MCG (2000 UT) 2 tab(s) orally once a day 03/09/2019 A ctive Aspirin Adult Low Dose 81 MG 1 tab(s) orally once a day A ctive Mupirocin 2 % 1 application Dog Behaviorist ally Twice a day 02/09/2025 Active BD [...] orally once a day 0 03/09/2019 Active Immunizations Vaccine Route Administration Date Status [...] Problem Status W/U Status Risk Notes Problem Essential hypertension (58978641) Essential (primary) hypertension (I10) Active confirmed Problem Hyperkalemia (92694469) Hyperkalemia (E87.5) Active confirmed Problem Essential hypertension (05358873) Essential hypertension (I10) Active confirmed Problem Body mass index 30+ - obesity (396996141) BMI 30.0-30.9,adult (Z68.30) Active confirmed Problem Overactive urinary bladder (disorder) (657952032) OAB (overactive bladder) (N32.81) Active confirmed Problem Hypoglycemia due to type 2 diabetes mellitus (031494894865480) Type 2 diabetes mellitus with hypoglycemia without coma (E11.649) Active confirmed Problem Mixed hyperlipidemia (465302762) Mixed hyperlipidemia (E78.2) Active confirmed Problem Chronic pulmonary edema (81762056) Chronic pulmonary edema (J81.1) Active confirmed Problem Long-term current use of insulin (805313894) correction (current) use of insulin (Z79.4) Active confirmed Problem Type II diabetes mellitus without complication (999815329) Type 2 diabetes mellitus without complication (E11.9) Active confirmed Problem Acquired hypothyroidism (197664563) Acquired hypothyroidism (E03.9) Active confirmed Problem Obesity (091551973) Non morbid obesity due to excess calories (E66.09) Active confirmed Problem Atherosclerotic heart disease of [place] coronary artery without angina pectoris (941860674851230) Coronary artery disease involving [place] coronary artery of [place] heart without angina pectoris (I25.10) Active confirmed Problem Iron deficiency anemia due to chronic blood loss (576010250) Iron deficiency anemia due to chronic blood loss (D50.0) Active confirmed Problem Anemia (661000713) Anemia, unspecified type (D64.9) Active confirmed Problem Atrial fibrillation (07583420) PAF (paroxysmal atrial fibrillation) (I48.0) Active confirmed Problem Claudication (49283501) Claudication (I73.9) Active confirmed Problem Hyperlipidaemia (83523825) Hyperlipidemia, unspecified hyperlipidemia type (E78.5) Active confirmed Problem Atrial fibrillation (06298085) Atrial fibrillation with RVR (I48.91) Active confirmed Problem Recurrent falls (996971100) Frequent falls (R29.6) Active confirmed Problem Transient ischemic attack (418500525) TIA (transient ischemic attack) (G45.9) Active confirmed Problem Peripheral vascular disease (433339430) PAD (peripheral artery disease) (I73.9) Active confirmed Problem Atherosclerotic heart disease of [place] coronary artery without angina pectoris (781131866820163) Atherosclerosis of [place] coronary artery without angina pectoris, unspecified whether [place] or transplanted heart (I25.10) Active confirmed Problem Occlusion and stenosis of multiple and bilateral cerebral arteries (371149396) Bilateral carotid artery stenosis (I65.23) Active confirmed Problem Carotid artery occlusion (482024557) Stenosis of carotid artery, unspecified laterality (I65.29) Active confirmed Problem Obesity (364975710) Non morbid obesity (E66.9) Active confirmed Problem History of placement of stent for coronary artery disease (situation) (121726985) S/P coronary artery stent placement (Z95.5) Active confirmed Problem Type II diabetes mellitus without complication (877100457) Type 2 diabetes mellitus without complication, unspecified whether mcfp insulin use (E11.9) Active confirmed Problem Hyperglycemia due to type 2 diabetes mellitus (255809443561066) Uncontrolled type 2 diabetes mellitus with hyperglycemia (E11.65) Active confirmed Problem Atherosclerosis of bilateral carotid arteries (disorder) (236126680991080) Bilateral carotid artery disease, unspecified type (I77.9) Active confirmed Problem Disorder of carotid artery (disorder) (371851258) Carotid artery disease, unspecified laterality, unspecified type (I77.9) Active confirmed Problem Chronic kidney disease stage 3A (890609565) Stage 3a chronic kidney disease (N18.31) Active confirmed Problem Urinary incontinence (290926512) Urinary incontinence in female (R32) Active confirmed Vital Signs Heart Rate 81 /min 02/09/2025 Blood pressure diastolic 72 mm Hg 02/09/2025 Height 63 in 02/09/2025 Blood pressure systolic 122 mm Hg 02/09/2025 Weight 173 lbs 02/09/2025 BMI 30.64 kg/m2 02/09/2025 Encounters Encounter Location Date [facility] [address] [place] [id number] 04/20/2024 Cosme Bledsoe OAB (overactive blad rocio) N32.81 [facility] [address] [place] [id number] 06/22/2024 Cosme Bledsoe Nausea and vomiting, unspecified vomiting type R11.2 ; Intermittent diarrhea R19.7 ; Urinary incontinence in female R32 ; Periumbilical pain R10.33 ; Type 2 diabetes mellitus without complication E11.9 and Acute UTI N39.0 [facility] [address] [place] [id number] 07/21/2024 Cosme Bledsoe Nausea and vomiting, unspecified vomiting type R11.2 ; Anemia, unspecified type D64.9 ; Type 2 diabetes mellitus with hypoglycemia without coma E11.649 and correction (current) use of insulin Z79.4 [facility] [address] [place] [id number] 08/31/2024 Cosme Bledsoe Open wound of right heel, initial encounter S91.301A [facility] [address] [place] [id number] 10/21/2024 Cosme Bledsoe Type 2 diabetes darren itus without complication E11.9 ; Essential hypertension I10 ; Stage 3a chronic kidney disease N18.31 ; Anemia, unspecified type D64.9 ; Acquired hypothyroidism E03.9 and Hyperlipidemia, unspecified hyperlipidemia type E78.5 [facility] [address] [place], [place] [id number] 02/09/2025 Cosme Bledsoe Iron deficiency anem ia due to chronic blood loss D50.0 ; Gastrointestinal hemorrhage, unspecified gastrointestinal hemorrhage type K92.2 and Open wound of left lower leg, initial encounter S81.802A [facility] [address] [place], [place] [id number] 06/24/2024 Cosme Bledsoe [facility] [address] [place], [place] [id number] 06/29/2024 Cosme Bledsoe [facility] [address] [place], [place] [id number] 07/22/2024 Cosme Bledsoe [facility] [address] [place], [place] [id number] 08/04/2024 Cosme Bledsoe [facility] [address] [place], [place] [id number] 08/16/2024 Cosme Bledsoe [facility] [address] [place] [id number] 08/19/2024 Cosme Bledsoe [facility] [address] [place], [place] [id number] 08/19/2024 Cosme Bledsoe [facility] [address] [place], [place] [id number] 08/25/2024 Cosme Bledsoe [facility] [address] [place], [place] [id number] 09/08/2024 Cosme Bledsoe [facility] [address] [place] [id number] 09/08/2024 Cosme Bledsoe Type 2 diabetes darren itus with hypoglycemia without coma E11.649 [facility] [address] [place], [place] [id number] 10/07/2024 Cosme Bledsoe [facility] [address] [place], [place] [id number] 10/24/2024 Cosme Bledsoe [facility] [address] [place], [place] [id number] 01/25/2025 Cosme Bledsoe [facility] [address] [place], [place] [id number] 02/15/2025 Cosme Bledsoe Iron deficiency anem ia due to chronic [...] diabetes mellitus without complication (ICD-10 - E11.9) 02/09/2025 Iron deficiency anemia due to chronic blood loss (ICD-10 - D50.0) 02/09/2025 Gastrointestinal hemorrhage, unspecified gastrointestinal hemorrhage type (ICD-10 - K92.2) Patient has follow up schedules with Dr. Lewis 02/15/2025 Iron deficiency anemia due to chronic blood loss (ICD-10 - D50.0) 02/09/2025 Open wound of left lower leg, initial encounter (ICD-10 - S81.802A) 10/21/2024 Stage 3a chronic kidney disease (ICD-10 - N18.31) 06/22/2024 Urinary incontinence in female (ICD-10 - R32) 07/21/2024 Type 2 diabetes mellitus with hypoglycemia without coma (ICD-10 - E11.649) 06/22/2024 Periumbilical pain (ICD-10 - R10.33) 07/21/2024 correction (current) use of insulin (ICD-10 - Z79.4) 10/21/2024 Anemia, unspecified type (ICD-10 - D64.9) 10/21/2024 Acquired hypothyroidism (ICD-10 - E03.9) 06/22/2024 Type 2 diabetes mellitus without complication (ICD-10 - E11.9) 06/22/2024 Acute UTI (ICD-10 - N39.0) 10/21/2024 Hyperlipidemia, unspecified hyperlipidemia type (ICD-10 - E78.5) 02/09/2025 Other Discharge summary with available lab/diagnostic imaging results obtained and reviewed. Discharge medication list reconciled. Appropriate counseling provided. Moderate Complexity Plan Of Treatment Pending Test Test Name Order Date Cologuard 12/18/2021 Next Appt Details Provider Name:Cosme Amos ry, 03/27/2025 09:30:00 AM, [address] [facility] [address] [facility], [address], [place], [place], [id number], Insurance Providers Payer Name Payer Address Payer Phone Subscriber Number Group Number Insured Name Patient Relationship to Insured Coverage Start Date Coverage End Date [employer] (MEDICAR E) [address] [address] [place] [address] [id number] Yesi Fernandez Self - patient is the insured Medical (General) History Medical History History ICD Code Type 2 Diabetes, Dx: 1979 Hypertension Hyperlipidemia TIA Carotid Stenosis, Dx: 2020 Surgical History Surgery Date(Month/Year) [facility] - TCAR (TransCarotid Artery Revascula rization) right side 03/06/2021 [facility] - TCAR, left side 10/22/2021 Hospitalization History Reason Date(Month/Year) Carotid Stenosis 01/02- Blood Pressure, Nausea 09/09-09/10/2010 Gallbladder 1989 Rt Carotid Stenosis and TCAR- [facility] 03/06- TIA 01/01-01/03/21
--- OUTSIDE RECORDS SUMMARY | 2025-02-16 12:10 | XMS_ITS | Clinical Summary ---
Author Organization Healthcare Address [address] [place] [address] Care Team Providers Care Cook Fry Name Role Phone Cosme Garcia MD Primary Care Provider [phone] Allergies No known active allergies Medications metFORMIN [...] lisinopril. 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 No heavy lifting (greater than 5 [...] Wellness (AWV) 1950 [facility]-/Child/Adol SDOH Screenings 1950 [id number] Vaccine (#1) 1954 [facility]-Obesity Intervention 1955 Diabetes: [...] this topic Medical Devices Implanted Type Area Store Receiving Clerk Device Identifier Shelf Expiration Date Model / Serial / Lot Stent Transcarotid System 9mm X 30mm - [id number] Implanted:Qty: 1 on 03/06/2021 by Leo Saleh MD at [facility]-[id number] 03/09/2023 SR-0930-C S / / [id number] Stent Transcarotid System 8mm X 30mm - [id number] Implanted:Qty: 1 on 10/22/2021 by Leo Saleh MD at [facility] Left: Carotid [facility] [id number] 02/07/2024 SR-0830-C S / / [id number] Procedures Procedure Name Priority Date/Time Associated Diagnosis [...] Adults <6.0% Children and Adolescents <7.5% Source: [place] [employer]. Standards of medical care in diabetes,2017. Diabetes Care.2017:40 (suppl 1):S1-S135. HbA1c assay performed by an ion-exchange chromatography method that is certified traceable to the DCCT. Bob Brown MD LAB BLOOD ORDERABLES Final Re sult Performing Organization Address City/[facility]/ZIP Co de Phone Number [facility]ALTHCARE [facility] [address] [place] [address] * [place] Hepatitis C Antibody (01/25/2021 2:56 PM EDT) [facility] Hepatitis C Antibody Negative Negative 01/25/2021 5:15 PM EDT HEALTHCARE LAB Blood Venous blood specimen / Unknown Venipuncture / Unknown 01/25/2021 2:56 PM EDT 01/25/2021 3:04 PM EDT Bob Brown MD LAB BLOOD ORDERABLES Final Re sult Performing Organization Address City/[facility] Co de Phone Number [facility]ARE [facility] [address] [place] [address] from Last 3 Months or Most Recently Relevant to Health Maintenance Insurance 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 Yes Care Teams Cook Fry Relationship Specialty Start Date End Date Cosme Garcia MD [address] [facility] [address] [place] [address] PCP - General 01/24/21
[2025-02-16 12:19] VITALS: BP 133/67; PULSE 87; RESP 18; TEMP 36.7; O2SAT 97
[2025-02-16] MEDS: IRON SUCROSE COMPLEX 200 MG in 0.9 % SODIUM CHLORIDE 100 ML 220 MG IV (12:19)
[2025-02-16] MEDS: SODIUM CHLORIDE 0.9% 10ML FLUSH SYRINGE 10 ML IV (12:19)
[2025-02-16 12:24] LABS: Hematocrit 28.1 % (37.0-47.0); Immature Granulocytes % 0.9 %; Mean Corpuscular HGB Conc 31.7 g/dL (31.8-35.4); Mean Corpuscular Hemoglobin 27.5 pg (27.0-31.2); Mean Corpuscular Volume 86.7 fl (81-99); Nucleated Red Blood Cells % 0 %; Platelet Count 309 K/mm3 (142-424); Red Blood Count 3.24 M/mm3 (4.20-5.40); Red Cell Distribution Width-SD 52.6 fL; White Blood Count 7.8 K/mm3 (4.8-10.8)
[2025-02-16 12:28] LABS: Hemoglobin 8.9 g/dL (12.2-16.2)
[2025-02-16 13:08] VITALS: BP 129/70; PULSE 84; RESP 18; O2SAT 98
== END 2025-02-16 13:08 | disposition home or self-care (01) ==
LOC: INF 12:07
PROVIDERS: PCP Family Medicine; Visit Provider Family Medicine
DX: Z23 Encounter for immunization (principal)
CPT/HCPCS: 36415; 85025; 96365; J1756

== ENCOUNTER 2025-02-20 08:52 | Day surgery (SDC) | payer MEDICARE, OTHER, SELFPAY ==
[2025-02-20] VITALS (7 sets, daily range): BP systolic 99–154; BP diastolic 50–74; PULSE 74–90; RESP 16–18; TEMP 36.1–36.3; O2SAT 96–100; BMI 30.4
--- NOTE | 2025-02-20 09:52 | EXP.HP ---
History of Present Illness *Admission Date: 02/20/25 *Reason for visit:: Iron deficiency and positive fecal Hemoccult *History of present illness: Mrs. Fernandez is a 74-year-old female who is here for diagnostic colonoscopy secondary to iron deficiency anemia and Hemoccult positive stool. The examination is deemed medically necessary for diagnostic colonoscopy. The patient has been seen, interviewed and examined prior to the procedure by both myself and the anesthesia provider. [facility] Disclaimer: The information contained in this section may have been updated after the patient was seen, as this information can be updated by other users. Medical History Encounter for pre-operative cardiovascular clearance Elevated troponin Non-STEMI (non-ST elevated myocardial infarction) Atherosclerosis of [place] arteries of extremities with intermittent claudication, bilateral legs Claudication Fall with injury Thyroid nodule Daytime somnolence Fatigue HTN (hypertension) Frequent falls Carotid artery disease PAD (peripheral artery disease) Elevated TSH Paroxysmal A-fib Coronary artery disease CHI (closed head injury) Atrial fibrillation with rapid ventricular response History of TIA (transient ischemic attack) Closed fracture of left patella Vocal cord paralysis Cerebrovascular accident Hyperlipidemia Hypertensive cardiovascular disease Diabetes mellitus Surgical History History of cardiac cath Stented coronary artery History of colonoscopy History of carotid endarterectomy Family History Other Coronary artery disease Diabetes Heart attack Hyperlipidemia Hypertension Stroke Social History (Updated 02/16/25 @ 12:57 by Connor Aguirre RN) Smoking Status: Never smoker alcohol intake: never substance use type: denies use current occupational status: retired Travel in the last 8 weeks?: None household members: family housing: house current occupational exposures/hazards: No caffeine: Yes Have you lived/traveled outside US in past 30 days?: No Contact w/someone who lives/traveled outside US past 30 days?: No Exposure to someone with infectious disease in past 14 days?: No Do you have a fever (greater than 100.4 F or 38 C)?: No Have you tested positive for COVID-19?: No Exposed to someone with COVID-19 in past 14 days?: No Do you have a sore throat?: No Do you have a cough?: No Do you have any weakness?: No Do you have any diarrhea?: No Are you experiencing any unusual bleeding?: No Do you have any muscle aches/pain?: No Do you have any abdominal pain?: No Are you experiencing loss of taste or smell?: No Other Medical History Have you received the Flu Vaccine for this season: No Have you received the Pneumonia Vaccine: No Review of Systems Review of Systems Review of systems (narrative): Negative *Cardiovascular Comments: Negative *Gastrointestinal Comments: Negative *Genitourinary Comments: Negative *Musculoskeletal Comments: Negative *Neurologic Comments: Negative Meds Home Medications and Allergies Home Medications ?Medication ?Instructions ?Recorded ?Confirmed ?Type metformin 1,000 mg tablet 1,000 mg PO BID 01/02/21 02/20/25 History atorvastatin 80 mg tablet 80 mg PO DAILY 02/03/22 02/20/25 History blood sugar diagnostic (Accu-Chek #10 ea 02/03/22 02/20/25 History Amanda Plus test strips) lancets (Accu-Chek Softclix #100 ea 02/03/22 02/20/25 History Lancets) pen needle, diabetic 31 gauge x #1,200 02/03/22 02/20/25 History 5/16 (Droplet Pen Needle) vitamin B12 500 mcg-folic acid 400 1 tab PO DAILY Supplement 06/29/23 02/20/25 History mcg tablet insulin glargine 100 unit/mL (3 35 unit SQ BID 10/01/23 02/20/25 History mL) subcutaneous pen (Lantus Solostar U-100 Insulin) cholecalciferol (vitamin D3) 10 10 mcg PO DAILY 03/31/24 02/20/25 History mcg (400 unit) capsule empagliflozin 25 mg tablet 25 mg PO DAILY 06/27/24 02/20/25 History (Jardiance) apixaban 5 mg tablet (Eliquis) 5 mg PO BID 07/15/24 02/20/25 History oxybutynin chloride 5 mg 5 mg PO DAILY 07/15/24 02/20/25 History tablet,extended release 24 hr pantoprazole 40 mg tablet,delayed 40 mg PO DAILY #30 tabs 07/16/24 02/20/25 Rx release (Protonix) famotidine 20 mg tablet 20 mg PO BID 08/09/24 02/20/25 History insulin aspart U-100 100 unit/mL See Protocol SQ ACHS PRN 08/09/24 02/20/25 History (3 mL) subcutaneous pen (Novolog Hyperglycemia FlexPen U-100 Insulin aspart) levothyroxine 100 mcg tablet 100 mcg PO DAILY 08/09/24 02/20/25 History metoprolol tartrate 25 mg tablet 12.5 mg (1/2 x 25 mg) PO BID #60 08/24/24 02/20/25 Rx tabs aspirin 81 mg tablet,delayed 81 mg PO DAILY #1 tab 01/25/25 02/20/25 Rx release blood-glucose sensor (FreeStyle #1 ea 01/31/25 02/20/25 History Jg 3 Sensor device) blood-glucose,edging machine feeder,cont #1 ea 01/31/25 02/20/25 History (FreeStyle Jg 3 Machias) sodium,potassium,mag sulfates 17.5 See Rx Instructions PO .COMPLEX 02/15/25 02/20/25 Rx gram-3.13 gram-1.6 gram oral soln #354 mL (Suprep Bowel Prep Kit) New Prescriptions to Start Prescriptions: Allergies Allergy/AdvReac Type Severity Reaction Status Date / Time amiodarone AdvReac Severe thyroid Verified 02/20/25 09:53 toxicity Exam Data for Last 24 hours I & O for Last 24 hours: Intake & Output 02/17/25 02/18/25 02/19/25 02/20/25 23:59 23:59 23:59 23:59 Weight 172 lb *Routine HEENT Exam Head: Present normocephalic Eye: Present EOMI and PERRL ENT: Present mucous membranes moist *Routine Neck Exam Neck: Present supple *Routine Respiratory Exam Respiratory: Present CTA bilaterally *Routine Cardiovascular Exam Cardiovascular: Present RRR *Routine Abdominal Exam Abdominal: Present soft and normoactive bowel sounds; Absent tenderness *Routine Rectal Exam Rectal:: deferred *Routine Genitalia Exam Genitalia:: deferred *Routine Extremities Exam Extremities: Absent cyanosis, clubbing or edema *Routine Skin Exam Skin: Present warm; Absent rash *Routine Neurological Exam Neurological: Present alert and oriented X3 Assessment and Plan *Assessment and plan (1) Iron deficiency anemia: Status: Acute Qualifiers: Iron deficiency anemia type: unspecified iron deficiency Qualified Code(s): D50.9 - Iron deficiency anemia, unspecified Category: Medical Code(s): D50.9 - Iron deficiency anemia, unspecified (2) Positive occult stool blood test: Status: Acute Category: Medical Code(s): R19.5 - Other fecal abnormalities Plan A/P: 1. Iron deficiency anemia with Hemoccult positive stool is the preprocedural diagnosis. The patient will be anesthetized/sedated using MAC sedation. The patient has been seen and examined. Cardiac and lung assessment prior to the examination is stable. Proceed with planned diagnostic colonoscopy.
--- NOTE | 2025-02-20 10:02 | EXP.ANES.CKL ---
[facility] Disclaimer: The information contained in this section may have been updated after the patient was seen, as this information can be updated by other users. Medical History Encounter for pre-operative cardiovascular clearance Elevated troponin Non-STEMI (non-ST elevated myocardial infarction) Atherosclerosis of [place] arteries of extremities with intermittent claudication, bilateral legs Claudication Fall with injury Thyroid nodule Daytime somnolence Fatigue HTN (hypertension) Frequent falls Carotid artery disease PAD (peripheral artery disease) Elevated TSH Paroxysmal A-fib Coronary artery disease CHI (closed head injury) Atrial fibrillation with rapid ventricular response History of TIA (transient ischemic attack) Closed fracture of left patella Vocal cord paralysis Cerebrovascular accident Hyperlipidemia Hypertensive cardiovascular disease Diabetes mellitus Surgical History History of cardiac cath Stented coronary artery History of colonoscopy History of carotid endarterectomy Family History Other Coronary artery disease Diabetes Heart attack Hyperlipidemia Hypertension Stroke Social History Smoking Status: Never smoker alcohol intake: never substance use type: denies use current occupational status: retired Travel in the last 8 weeks?: None household members: family housing: house current occupational exposures/hazards: No caffeine: Yes Have you lived/traveled outside US in past 30 days?: No Contact w/someone who lives/traveled outside US past 30 days?: No Exposure to someone with infectious disease in past 14 days?: No Do you have a fever (greater than 100.4 F or 38 C)?: No Have you tested positive for COVID-19?: No Exposed to someone with COVID-19 in past 14 days?: No Do you have a sore throat?: No Do you have a cough?: No Do you have any weakness?: No Do you have any diarrhea?: No Are you experiencing any unusual bleeding?: No Do you have any muscle aches/pain?: No Do you have any abdominal pain?: No Are you experiencing loss of taste or smell?: No [facility] Anesthesia Checklist Patient Identification Patient Identification: Arm Band and Verbal (Name & ) Structural Data Admitted From: Home Planned Operative Procedure/s: colonscopy Consent for Planned Operative Procedure(s) Verified: Yes Verified Documents: Surgical Consent and History and Physical NPO Status Verified Time NPO: 00:00 Additional verifications Anesthesia Reactions: Yes (low BP) Hx Blood Transfusions: No Blood Transfusion Reaction: No Previous Colonoscopy: Yes Airway Assessment Mallampati Score:: Class II Dentition: Edentulous Neurological Assessment Level of Consciousness: Awake, Alert and Appropriate Hx Seizures: No Numbness or tingling in extremities: No Anesthesia Plan Anesthesia Risk discussed: Yes ASA Class: III Anesthesia Type: MAC
[2025-02-20 10:12] LABS: POC Glucose,Bedside 228 (70-110)
--- NOTE | 2025-02-20 10:15 | HMH.PROCNOTE ---
[facility] Procedure Note Date: 02/20/25 Time: 10:36 Procedure Note:: Colonoscopy Procedure Report: Colonoscopy with cold snare polypectomy Endoscopist: Ousmane Lewis II, MD Referring physician: Cosme Garcia MD Date of Procedure: February 20, 2025 Equipment: Olympus 190 variable stiffness pediatric colonoscope Sedation: MAC sedation Indication: Mrs. Fernandez is a 74-year-old female who is here for diagnostic colonoscopy secondary to iron deficiency anemia and Hemoccult positive stool. The patient did have an upper endoscopy with mi while she was hospitalized in January 2025. This did show some mild antral gastropathy but was otherwise normal. She has been on clopidogrel and Eliquis. The patient did have a colonoscopy with Dr. Ronn Goodman M.D. in June 2023. The findings did indicate bowel preparation fair with fairly significant tortuosity and spasticity. At that time she had a colonoscopy for a positive Cologuard. He had even stated consider barium enema in near future. The patient reports no abdominal pain, weight loss, rectal bleeding or family history of colon cancer. She has had no melena or hematochezia. Procedure: Prior to the procedure, a history and physical exam was performed, and patient's medications and allergies were reviewed. The risks, benefits and alternatives of the sedation and procedure were discussed with the patient. All questions were answered and informed consent was obtained. The patient was brought to the procedure room. Patient identification and proposed procedure were verified by the physician and the nurse. The patient was placed in a left lateral decubitus position and the scope was passed under direct vision. Throughout the procedure, the patient's blood pressure, pulse, and oxygen saturations were monitored continuously. The colonoscopy was accomplished without difficulty. The patient tolerated the procedure well. Findings: On digital rectal examination there was normal rectal tone. There were no external hemorrhoids. The colonoscope was introduced through the anal canal to the rectum and advanced to the cecum. The ileocecal valve and appendiceal orifice were identified. The scope was advanced a short distance into the ileum which appeared grossly normal. The scope was then withdrawn into the colon. There were 2 polyps (ascending x 1 (3 mm) and rectosigmoid x 1 (4 mm)). Both of these were removed via cold snare polypectomy. The remaining cecum, ascending and transverse colon and mucosa were grossly normal. There were scattered diverticuli throughout the descending and sigmoid colon (LEFT colon). The rectum itself was normal. Upon retroflexion within the rectum there were grade 1-2 internal hemorrhoids. The preparation was excellent throughout with Bamberg Preparation Score of 9. The cecal time was 12 minutes. Impression: 1. Diminutive colonic polyps x 2 2. Left-sided diverticulosis 3. Grade 1-2 internal hemorrhoids Plan: There is no etiology for the patient's Hemoccult positive stool and iron deficiency anemia. This is certainly in part related to her anticoagulation. I would recommend iron repletion via iron infusion (Venofer). If she remains on anticoagulation, I would consider PillCam/M2A video capsule enteroscopy.
[2025-02-20] MEDS: IRON SUCROSE COMPLEX 200 MG in 0.9 % SODIUM CHLORIDE 100 ML 220 MG IV (12:10)
== END 2025-02-20 13:30 | disposition home or self-care (01) ==
PROVIDERS: PCP Family Medicine; Visit Provider Internal Medicine Gastroenterology
PROC: 0DJD8ZZ Inspection of Lower Intestinal Tract, Via Natural or Artificial Opening Endoscopic (ICD-10-PCS; CPT 45378; principal; 2025-02-20 10:30)
DX: D50.9 Iron deficiency anemia, unspecified (principal); R19.5 Other fecal abnormalities; K62.1 Rectal polyp; D12.2 Benign neoplasm of ascending colon; K57.30 Diverticulosis of large intestine without perforation or abscess without bleeding; K64.1 Second degree hemorrhoids; I25.2 Old myocardial infarction; E11.51 Type 2 diabetes mellitus with diabetic peripheral angiopathy without gangrene; I70.213 Atherosclerosis of native arteries of extremities with intermittent claudication, bilateral legs; E04.1 Nontoxic single thyroid nodule; E07.9 Disorder of thyroid, unspecified; I48.0 Paroxysmal atrial fibrillation; I11.9 Hypertensive heart disease without heart failure; I25.10 Atherosclerotic heart disease of native coronary artery without angina pectoris; Z86.73 Personal history of transient ischemic attack (TIA), and cerebral infarction without residual deficits; E78.5 Hyperlipidemia, unspecified; Z95.5 Presence of coronary angioplasty implant and graft; Z79.899 Other long term (current) drug therapy; Z79.84 Long term (current) use of oral hypoglycemic drugs; Z79.4 Long term (current) use of insulin; Z79.890 Hormone replacement therapy; Z79.82 Long term (current) use of aspirin; Z88.8 Allergy status to other drugs, medicaments and biological substances; Z79.01 Long term (current) use of anticoagulants; Z79.02 Long term (current) use of antithrombotics/antiplatelets
CPT/HCPCS: 45385; 82962; 88305; 96365; J1756; J2003; J2371; J2704

== ENCOUNTER 2025-02-22 12:23 | Outpatient (CLI) | payer MEDICARE, OTHER, SELFPAY ==
[2025-02-22] MEDS: IRON SUCROSE COMPLEX 200 MG in 0.9 % SODIUM CHLORIDE 100 ML 220 MG IV (12:34)
[2025-02-22 12:38] VITALS: BP 124/72; PULSE 79; RESP 17; O2SAT 96
[2025-02-22 13:10] VITALS: BP 132/70; PULSE 83; RESP 16
== END 2025-02-22 13:10 | disposition home or self-care (01) ==
LOC: INF 12:24
PROVIDERS: PCP Family Medicine; Visit Provider Family Medicine
DX: D50.9 Iron deficiency anemia, unspecified (principal); K92.2 Gastrointestinal hemorrhage, unspecified
CPT/HCPCS: 96365; J1756

== ENCOUNTER 2025-02-24 12:33 | Outpatient (CLI) | payer MEDICARE, OTHER, SELFPAY ==
--- OUTSIDE RECORDS SUMMARY | 2025-02-09 07:00 | XMS_ITS ---
[facility] [address] [facility] [address] [place] [id number] Care Team Providers Care Traveling Representative Name Role Phone Cosme Garcia Primary Care Provider Allergies No Known Allergies Results Component Value Reference Range Notes CBC Fingerstick (in house) Reviewed date:02/09/2025 03:06:35 PM Interpretation: Performing Lab: Notes/Report: wbc 8.4 3.5 - 10 lym 20.6% 15 - 50 mid 5.4% 2 - 15 gran 74.0% 35 - 80 rbc 2.95 3.5 - 5.5 hgb 8.2 11.5 - 16.5 hct 25.6 35 - 55 mcv 86.8 75 - 100 mch 28.0 25 - 35 mchc 32.2 31 - 38 plat 394 100 - 400 REASON FOR VISIT [facility] d/c f/u Medications Medication SIG (Take, Route, Frequency, Duration) Notes Start Date End Date Status Albuterol Sulfate HFA 108 (90 Base) MCG/ACT 1 puff as needed Inhalation every 4 hrs, prn 11/18/2023 Active FreeStyle Jg 3 Plus Sensor - as directed 07/21/2024 Active Accu-Chek Amanda Plus w/Device as directed 12/04/2023 Active Ondansetron 4 MG 1 tablet on the tong ue and allow to dissolve Orally three times a day as needed Active NovoLOG 100 UNIT/ML SLIDING SCALE BEFORE MEALS UNDER THE SKIN DIRECTED (MAX DAILY DOSE IS 75 UNITS) Active Mupirocin 2 % 1 application [employer] ally Twice a day 02/09/2025 Active BD Pen Needle Short U/F 31 [...] orally once a day 0 03/09/2019 Active Venofer 20 MG/ML 5 mL Intravenous; Duration: 30 day(s) 02/09/2025 Active Vitamin D3 50 MCG (2000 UT) 2 tab(s) orally once a day 03/09/2019 A ctive Aspirin Adult Low Dose 81 MG 1 tab(s) orally once a day A ctive oxyBUTYnin Chloride ER 5 MG 1 tablet Orally Once a day; Duration: 90 days Active Feosol Bifera 28 MG 1 tablet Orally Once a day; Duration: 90 days 10/31/2024 Active Accu-Chek Amanda Plus - 1 strip(s) finger stick 2 times a day or as directed; Duration: 90 days Active Lantus SoloStar 100 UNIT/ML INJECT 40 TO 50 UNITS SUBCUTANEOUSLY TWO TIMES A DAY; Duration: 30 Active Levothyroxine Sodium 100 MCG TAKE 1 TABLET BY MOUTH ONCE DAILY IN THE MORNING ON AN EMPTY STOMACH; Duration: 30 Active Eliquis 5 MG 1 tablet Orally Twic e a day; Duration: 90 days Active Atorvastatin Calcium 80 MG 1 tab(s) oral ly once a day (at bedtime) Active Metoprolol Tartrate 25 MG 1/2 tablet Ora lly Twice a day Active Lisinopril 10 MG 1 tab(s) orally once a day Active metFORMIN HCl 1000 MG 1 tab(s) orally 2 times a day Active Jardiance 25 MG 1 tab(s) orally once a day (in the morning) Active Famotidine 20 MG TAKE 1 TABLET BY EMMA TH TWICE DAILY; Duration: 30 Active Pantoprazole Sodium 40 MG TAKE 1 TABLET BY MOUTH ONCE DAILY; Duration: 30 Active FreeStyle Jg 3 [place] - as directed 08/19/2024 Active FreeStyle Jg 3 Plus Sensor - Apply one sensor every 14 days; Duration: 28 days 08/16/2024 Active Problems Problem Type SNOMED Code ICD Code Onset Dates Problem Status W/U Status Risk Notes Problem Iron deficiency anemia due to chronic blood loss (104332762) Iron deficiency anemia due to chronic blood loss (D50.0) Active confirmed Problem Diabetic renal disease (378230517) Type 2 diabetes mellitus with diabetic chronic kidney disease, unspecified CKD stage, unspecified whether penitentiary insulin use (E11.22) Active confirmed Problem Chronic kidney disease stage 3B (disorder) (098017681) Chronic kidney disease, stage 3b (N18.32) Active confirmed Vital Signs Weight 173 lbs 02/09/2025 Blood pressure systolic 122 mm Hg 02/10/20 25 Blood pressure diastolic 72 mm Hg 025 Heart Rate 81 /min 02/09/2025 Height 63 in 02/09/2025 BMI 30.64 kg/m2 02/09/2025 Encounters Encounter Location Date Provider Diagnosis [facility] [address] [place], [place] [id number] 02/09/2025 Cosme Garcia Iron deficiency anem ia due to chronic blood loss D50.0 ; Gastrointestinal hemorrhage, unspecified gastrointestinal hemorrhage type K92.2 ; Open wound of left lower leg, initial encounter S81.802A ; PAF (paroxysmal atrial fibrillation) I48.0 ; PAD (peripheral artery disease) I73.9 ; Type 2 diabetes mellitus with diabetic chronic kidney disease, unspecified CKD stage, unspecified whether intermediate manager insulin use E11.22 ; Chronic kidney disease, stage 3b N18.32 and Non morbid obesity due to excess calories E66.09 Assessments Encounter Date Diagnosis (ICD Code) Assessment Notes Treatment Notes Treatment Clinical Notes Section Notes 02/09/2025 Iron deficiency anemia due to chronic blood loss (ICD-10 - D50.0) 02/09/2025 Gastrointestinal hemorrhage, unspecified gastrointestinal hemorrhage type (ICD-10 - K92.2) Patient has follow up schedules with Dr. Lewis 02/09/2025 Open wound of left lower leg, initial encounter (ICD-10 - S81.802A) 02/09/2025 PAF (paroxysmal atrial fibrillation) (ICD-10 - I48.0) 02/09/2025 PAD (peripheral artery disease) (ICD-10 - I73.9) 02/09/2025 Type 2 diabetes mellitus with diabetic chronic kidney disease, unspecified CKD stage, unspecified whether penitentiary insulin use (ICD-10 - E11.22) 02/09/2025 Chronic kidney disease, stage 3b (ICD-10 - N18.32) 02/09/2025 Non morbid obesity due to excess calories (ICD-10 - E66.09) 02/09/2025 Other Discharge summary with available lab/diagnostic imaging results obtained and reviewed. Discharge medication list reconciled. Appropriate counseling provided. Moderate Complexity Plan Of Treatment Medication Medication Name Sig Start Date Stop Date Notes Mupirocin 2 % 1 application Externally Twice a day 025 Venofer 20 MG/ML 5 mL Intravenous; Duration: 30 day(s) 10/2024 Treatment Notes Assessment Notes Gastrointestinal hemorrhage, unspecified gastrointestinal hemorrhage type Patient has follow up schedules with Dr. Lewis Other Discharge summary wi th available lab/diagnostic imaging results obtained and reviewed. Discharge medication list reconciled. Appropriate counseling provided. Moderate Complexity Next Appt Details Follow Up: 4 to 6 Weeks, Corina son: Provider Name:Cosme Amos ry, 03/27/2025 09:30:00 AM, [address], [address] , [place], [place], [id number], Progress Notes * Alec FERNANDEZOB: 9 (74 yo F)Acc No.[id number]:02/09/2025 Patient: Yesi UGALDE Provider: Damion Garcia M.D. :1950 A ge:74 Y S ex:Female Date:02/09/2025 Address:[address] [place] [address] [place], RE-[id number] Subjective: * Chief Complaints: * 1 . [facility] d/c f/u. * HPI: H PI: Patient is here today for a Transition of Care Visit. Discharge from the following Facility: [facility] with diagnosis of Iron Deficiency Anemia, Dr. Lewis intends to perform a colonoscopy following cardiac clearance. Patient had heart cath on 02/01/2025, blood count was performed to see if anemia had stabilized before cath was done. Discharge date: 01/25/2025 ,Date of phone contact following discharge: 01/26/2025.? * ROS: D ERMATOLOGY: no R evan. [...] . * Social History: C URRENT TOBACCO USE: No . C affeine: yes, frequency:pop, qd. Home smoke detector use: yes. Marital Status: . Past smoking status: no. Alcohol: No. Sexually active: no.. * Medications: T aking Aspirin Adult Low Dose 81 MG Tablet [...] PEN NEEDLE ONCE A DAY , Taking Albuterol Sulfate HFA 108 (90 Base) MCG/ACT Aerosol Solution 1 puff as needed Inhalation every 4 hrs, prn , Taking Accu-Chek Amanda Plus w/Device Kit as directed , Taking FreeStyle Jg 3 Plus Sensor - Miscellaneous as directed , Taking NovoLOG 100 UNIT/ML Solution SLIDING [...] one sensor every 14 days , Taking FreeStyle Jg 3 [place] - Device as directed , Taking Jardiance 25 MG Tablet 1 tab(s) orally once a day (in the morning) , Taking metFORMIN HCl 1000 MG Tablet 1 tab(s) orally 2 times a day , Taking Lisinopril 10 MG Tablet 1 tab(s) orally once a day , Taking Metoprolol Tartrate 25 MG Tablet 1/2 tablet Orally Twice a day , Taking Atorvastatin Calcium 80 MG Tablet 1 tab(s) orally once a day (at bedtime) , Taking Feosol Bifera 28 MG Tablet 1 tablet Orally Once a day , Taking Eliquis 5 MG Tablet 1 tablet Orally Twice a day , Taking Levothyroxine Sodium 100 MCG Tablet TAKE 1 TABLET BY MOUTH ONCE DAILY IN THE MORNING ON AN EMPTY STOMACH , Taking Lantus SoloStar 100 UNIT/ML Solution Pen-injector INJECT 40 TO 50 UNITS SUBCUTANEOUSLY TWO TIMES A DAY , Taking Accu-Chek Amanda Plus - Strip 1 strip(s) fingerstick 2 times a day or as directed , Taking oxyBUTYnin Chloride ER 5 MG Tablet Extended Release 24 Hour 1 tablet Orally Once a day , Discontinued Clopidogrel Bisulfate 75 MG Tablet TAKE 1 TABLET EVERY DAY , Medication List reviewed and reconciled with the patient * Allergies: N .K.D.A. Objective: * Vitals: W t: 173, Temp: 97.9, BP: 122/72, HR: 81, Nurse: michael, Ht: 63, BMI:30.64. * Examination: G eneral Examination: General Appearance: N AD. H eart: R SR. L ungs:?clear to auscultation. S kin: s mall, about 1 cm in diameter superficial skin wound on the left lower leg, minimal surrounding skin redness, no drainage. Assessment: * Assessment: 1. I heath deficiency anemia due to chronic blood loss - D50.0 (Primary) 2 . G astrointestinal hemorrhage, unspecified gastrointestinal hemorrhage type - K92.2 3 . O pen wound of left lower leg, initial encounter - S87.727D 4 . P AF (paroxysmal atrial fibrillation) - I48.0 5 . P AD (peripheral artery disease) - I73.9 6 . T ype 2 diabetes mellitus with diabetic chronic kidney disease, unspecified CKD stage, unspecified whether penitentiary insulin use - E11.22 7 . C hronic kidney disease, stage 3b - N18.32 8 . N on morbid obesity due to excess calories - E66.09 Plan: * Treatment: Value Reference Range w bc 8.4 3.5 - 10 * l ym 20.6% 15 - 50 * m id 5.4% 2 - 15 * g ran 74.0% 35 - 80 * r bc 2.95 3.5 - 5.5 * h gb 8.2 11.5 - 16.5 * h ct 25.6 35 - 55 * m cv 86.8 75 - 100 * m ch 28.0 25 - 35 * m chc 32.2 31 - 38 * p lat 394 100 - 400 * Gracia Muñoz 02/09/2025 11:57:3 4 AM EDT > Provider reviewed results while patient in office. 2.?Gastrointestinal hemorrhage, unspecified gastrointestinal hemorrhage type? Notes: Patient has follow up schedules with Dr. Lewis??3.?Open wound of left lower leg, initial encounter? Start Mupirocin Ointment, 2 %, 1 application, Externally, Twice a day, 22 grams, Refills 0.? 4.?Others? Notes: Discharge summary with available lab/diagnostic imaging results obtained and reviewed. Discharge medication list reconciled. Appropriate counseling provided. Moderate Complexity?? * Procedure Codes: G 2211 Complex e/[place], [address] [facility] 14 DAY DISCH, 1111F [facility] MED/CURENT MED MERGE, 40841 CAPILLARY BLOOD DRAW, 57585 CBC WITH AUTO DIFF, 1036F TOBACCO NON-USER, G8783 BP SCR PRFRM RCMDD DEFIND SCR INTVL, G8752 MOST RECENT SYSTOLIC BP < 140MM HG, G8754 MOST RECENT DIASTOLIC BP < 90MM HG * Follow Up: 4 to 6 Weeks * Images: Billing Information: * Visit Code: 36266 Office Visit, Est Pt., Level 4. * Procedure Codes: G2211 Complex e/[place]. [address] [facility] 14 DAY DISCH. 1111F [facility] MED/CURENT MED MERGE. 54562 CAPILLARY BLOOD DRAW. 49294 CBC WITH AUTO DIFF. 1036F TOBACCO NON-USER. G8783 BP SCR PRFRM RCMDD DEFIND SCR INTVL. G8752 MOST RECENT SYSTOLIC BP < 140MM HG. G8754 MOST RECENT DIASTOLIC BP < 90MM HG. * Electronic signature of Carol Garcia MD on 02/24/2025 at 12:36 PM EDT Sign off status: Pending * Provider: Damion Garcia M.D. Date: 02/09/2025 Generated for Alexander camp/Vamsi/Jakobitting on: 02/24/2025 12:36 PM EDT History and Physical Notes * HPI (History of Present Illness) Category Sub-Category Detail Notes Category Not es HPI Patient is here today for a [facility] sition of Care Visit. Discharge from the following Facility: [facility] with diagnosis of Iron Deficiency Anemia, Dr. Lewis intends to perform a colonoscopy following cardiac clearance. Patient had heart cath on 02/01/2025, blood count was performed to see if anemia had stabilized before cath was done. Discharge date: 01/25/2025 ,Date of phone contact following discharge: 01/26/2025 Examination Category Sub-Category Detail Notes Category Not es General Examination Heart: RSR Lungs: clear to auscultatio n General Appearance: NAD Skin: small, about 1 cm in diameter superficial skin wound on the left lower leg, minimal surrounding skin redness, no drainage
--- OUTSIDE RECORDS SUMMARY | 2025-02-15 07:05 | XMS_ITS ---
Author Organization [facility] Address [address] [facility] 36 [facility] [address] [place] [phone] Care Team Providers Care Floor Manager Name Role Phone Cosme Garcia Primary Care Provider Results Component Value Reference Range Notes Type and Cross 2 units PRBC Reviewed date:02/16/2025 09:46:08 AM Interpretation: Performing Lab: Notes/Report: REASON FOR VISIT Message (LM) Medications Medication SIG (Take, Route, Frequency, Duration) Notes Start Date End Date Status Transfuse 2 Units PRBC 2 units transfuse 2 units, then 1 hour post transfusion perform H and H IV 02/15/2025 Active Encounters Encounter Location Date Provider Diagnosis [facility] [address] [facility] [address] [place] [phone] 02/15/2025 Cosme Garcia Iron deficiency anem ia due to chronic blood loss D50.0 Assessments Encounter Date Diagnosis (ICD Code) Assessment Notes Treatment Notes Treatment Clinical Notes Section Notes 02/15/2025 Iron deficiency anemia due to chronic blood loss (ICD-10 - D50.0) Plan Of Treatment Medication Medication Name Sig Start Date Stop Date Notes Transfuse 2 Units PRBC 2 units transfuse 2 units, then 1 hour post transfusion perform H and H IV 02/15/2025 Next Appt Details Provider Name:Cosme Amos ry, 03/27/2025 09:30:00 AM, [address] [facility], [address], [place], [phone], Progress Notes * Alec FERNANDEZOB: 9 (74 yo F)Acc No.[id number]:02/15/2025 Patient: Surendra UGALDEannie :1950 A ge:74 Y S ex:Female Address:[facility] [place], [address] * Refills Start Transfuse 2 Units PRBC packed red blood cells, 2 units, IV, transfuse 2 units, then 1 hour post transfusion perform H and H Subjective: * Chief Complaints: * M essage (LM) * Medical History: * Surgical History: * Hospitalization/Major Diagno stic Procedure: * Medications: Objective: * Vitals: * Physical Examination: Assessment: * Assessment: 1. I heath deficiency anemia due to chronic blood loss - D50.0 (Primary) Plan: * Treatment: * Procedure Codes: * true * Date: Generated for Alexander camp/Vamsi/Josemanuelsmitting on: 0 02/24/2025 12:35 PM EDT
--- OUTSIDE RECORDS SUMMARY | 2025-02-20 09:30 | XMS_ITS ---
Author Organization [facility] Address [facility] [address] [place] [phone] Care Team Providers Care Cartridge Filler Name Role Phone Cosme Garcia Primary Care Provider REASON FOR VISIT 4 month check Encounters Encounter Location Date Provider Diagnosis [facility] [address] [place] [id number] 02/20/2025 Cosme Garcia Plan Of Treatment Next Appt Details Provider Name:Cosme Amos ry, 03/27/2025 09:30:00 AM, [address], [address], [place], [phone], Progress Notes * URIAHSurendraBrandonOB: 9 (74 yo F)Acc No.[id number]:02/20/2025 Progress Notes Patient: Yesi UGALDE Provider: Damion Garcia M.D. :1950 A ge:74 Y S ex:Female Date:02/20/2025 Address:[facility] [id number] Subjective: * Chief Complaints: * 1 . 4 month check. * Medical History: Objective: * Vitals: Assessment: Plan: * Treatment: * Images: Billing Information: * Visit Code: * Procedure Codes: * Electronic signature of Carol Garcia MD on 02/24/2025 at 12:36 PM EDT Sign off status: Pending * Provider: Damion Garcia M.D. Date: 02/20/2025 Generated for Alexander camp/Vamsi/eTransmitting on: 02/24/2025 12:36 PM EDT
--- OUTSIDE RECORDS SUMMARY | 2025-02-24 12:36 | XMS_ITS | Clinical Summary ---
Author Organization [facility] Address [address] [place] [address] Care Team Providers Care Machine Rope Maker Name Role Phone Cosme Garcia MD Primary Care Provider + [phone] Allergies No known active allergies Medications CYANOCOBALAMIN SL Take 2 tablets by mouth Daily. Active metFORMIN (GLUCOPHAGE) 1000 MG tablet Take 1,000 mg by mouth 2 (Two) Times a Day. 1 po bid 2 Active aspirin 81 MG EC tablet Take 81 mg by mouth Daily. Active Cholecalciferol 50 MCG (1999) chewable tablet Chew 3 tablets Daily. Active lisinopril (PRINIVIL,ZESTRI L) 10 MG tablet Take 10 mg by mouth Daily. 2 Active atorvastatin (LIPITOR) 80 MG tablet Take 80 mg by mouth Daily. 2 Active Accu-Chek Softclix Lancets lancets 2 Active Insulin Glargine (TOUJEO MAX SOLOSTAR SC) Inject 22 Units under the skin into the appropriate area as directed. Active empagliflozin (Jardiance) 25 MG tablet tablet Take 25 mg by mouth Daily. Active magnesium citrate 1.745 GM/30ML solution solution Take by mouth 2 (Two) Times a Day. Active clopidogrel (PLAVIX) 75 MG tablet Take 75 mg by mouth Daily. Active Semaglutide, 1 MG/DOSE, (Ozempic, 1 MG/DOSE,) 4 MG/3ML solution pen-injectorIndi cations:Type 2 diabetes mellitus with other circulatory complication, with long-term current use of insulin Inject 1 mg under the skin into the appropriate area as directed 1 (One) Time Per Week. 3 mL 5 2 Active Active Problems Problem Noted Date Diagnosed Date Diabetes mellitus 06/27/2022 Assessment & Plan (06/27/2022 10:34 AM EST): -Patient with uncontrolled type 2 diabetes due to persistent hyperglycemia, suspect there is a component of medication noncompliance that leads to this hyperglycemia as she is inconsistently able to get medications -Patient reports that she comes today to get free samples to bridge her until the near and does not wish to have routine follow-up from our clinic and would prefer sending recommendations back to her primary care physician for long-term management of her type 2 diabetes -At this time recommend continuing metformin 1000 mg twice daily, recommend increasing Ozempic to 1 mg weekly, recommend continuing Jardiance 25 mg daily -Recommend reducing Toujeo to 30 units daily -Recommend starting Humalog 10 units with meals and 2:50>200mg/dl correction factor instead of doing correction factor only -Recommend dietary changes including reduction in simple sugars, simple carbohydrates and controlling her portion sizes better -Counseled that watermaster hyperglycemia can cause worsening neuropathy, kidney damage, eye damage, and cardiovascular disease -Counseled that with increasing the dose of insulin she is at increased risk for hypoglycemia which can lead to immediate complications such as stroke, heart attack, and ; counseled on the importance of checking her blood glucose regularly and reducing her insulin dose if her blood glucoses are consistently less than 100 mg/dL -Recommend checking fingerstick blood glucose prior to meals and at bedtime DM Health Maintenance: Ophtho: last done 02/2021 and she denies problems due to diabetes, recommend she have repeat dilated eye exam in the coming 6 months, she plans to schedule this Monofilament / Foot exam: Done today, abnormal due to calluses and likely subungual hematoma on right great toe, recommend she have follow-up by her primary care physician Lipids/Statin: Continue atorvastatin 80 mg daily with last FLP showing LDL 67.4, total cholesterol 144, HDL 40, triglycerides 183 on 01/25/2021 GRISELDA: Due, patient prefers to have her primary care doctor order this, recommend this is checked annually TSH: 2.02 on 01/25/2021 Aspirin: taking and she takes Plavix HTN (hypertension) 06/27/2022 Overview (06/27/2022): Hold home Lisinopril 10 mg daily at discharge Patient requiring midodrine postoperatively. Holding home lisinopril with instructions to resume when off midodrine for 24 hours and when SBP > 120. Instructed to specifically not take both midodrine and lisinopril. Vitamin D deficiency 10/22/2021 Overview (06/27/2022): Continue home cholecalciferol 2,000 units daily. Antiplatelet or antithrombotic long-term use Overview (06/27/2022): Continue aspirin and plavix per home routine. Asymptomatic bilateral carotid artery stenosis 0 02/12/2021 Overview (06/27/2022): S/p right TCAR on 03/06/21 (Dr. Saleh) [...] lisinopril. Right groin access, left neck incision PETE, WNL No heavy lifting (greater than 5 pounds) for four weeks post op. Patient encouraged to increase activity as tolerated Patient will follow up with vascular surgery in four weeks with bilateral carotid duplex. TIA (transient ischemic attack) 01/29/2021 Overview (06/27/2022): History of bilateral carotid stenosis, S/P bilateral TCAR. High cholesterol 01/23/2021 Overview (06/27/2022): Continue home atorvastatin 80 mg daily. Family History Medical History Relation Name Comments Heart disease Brother Asim Breast cancer Daughter 1 Yazmin Cancer Daughter 1 Yazmin Diabetes Daughter 1 Yazmin Stroke Daughter 1 Yazmin Diabetes Daughter 2 Lacie Cancer Daughter 3 Destinee Thyroid cancer Daughter 3 Destinee Diabetes Father Heart disease Father Diabetes Mother Heart attack Mother Heart disease Mother Heart disease Sister 1 Rosa Hypertension Sister 1 Rosa Diabetes Sister 2 Mira Heart disease Sister 2 Mira Relation Name Status Comments Brother Asim Alive Daughter 1 Yazmin Alive Daughter 2 Lacie Alive Daughter 3 Destinee Alive Father Mother Sister 1 Rosa Alive Sister 2 Mira Alive Social History Tobacco Use Types Packs/Day Years Used Date Smoking Tobacco: Never Smokeless Tobacco: Never Tobacco Cessation:Counseling Given: Not Answered Alcohol Use Standard Drinks/Week Comments Never 0 (1 standard drink = 0.6 oz pur e alcohol) Abuse Screen Answer Date Recorded Unsafe at Home or Work/School Not on file Feels Threatened by Someone? Not on file Does Anyone Keep You from Co ntacting Others or Doint Things Outside the Home? Not on file 05/22/2023 Physical Sign of Abuse Present Not on file 1 Housing Stability Answer Date Recorded Current Living Arrangements Not on file 05/10 Potentially Unsafe Housing Conditions Not on austen e 05/22/2023 Family and Community Support Answer Saravanan e Recorded Help with Day-to-Day Activities Not on file 05/22/2023 Lonely or Isolated Not on file 05/22/2023 Employment Answer Date Recorded Do you want help finding or keeping work or a sixto b? Not on file 05/22/2023 Disabilities Answer Date Recorded Concentrating, Remembering, or Making Decisions Difficulty Not on file 05/22/2023 Doing Errands Independently Difficulty Not on fi le 05/22/2023 Education Answer Date Recorded Help with school or training? Not on file Preferred Language Not on file 05/22/2023 Comments Unknown Sex and Gender Information Value Date Recorded Sex Assigned at Not on file Legal Sex Female 1:23 PM EDT Gender Identity Not on file Sexual Orientation Not on file Last Filed Vital Signs Vital Sign Reading Time Taken Comments Blood Pressure 126/62 06/27/2022 9:41 AM EST Pulse 74 06/27/2022 9:41 AM EST Temperature 36.7 C (98 F) 01/04/2021 1:24 PM EDT Respiratory Rate 20 01/04/2021 1:24 PM EDT Oxygen Saturation 96% 06/27/2022 9:41 AM EST Inhaled Oxygen Concentration - - Weight 71.7 kg (158 lb) 06/27/2022 9:41 AM EST Height 160 cm (5' 3 ) 06/27/2022 9:41 AM EST Body Mass Index 27.99 06/27/2022 9:41 AM EST Plan of Treatment Health Maintenance Due Date Last Done Comments DXA SCAN 1950 DIABETIC EYE EXAM 1959 DIABETIC FOOT EXAM 1959 URINE MICROALBUMIN-CREATININ E RATIO (uACR) 1959 Pneumococcal Vaccine 50+ (1 of 2 - PCV) 1968 TDAP/TD VACCINES (1 - Tdap) 1968 COLOGUARD 1994 COLON CANCER SCREENING 5 YEA R SIGMOIDOSCOPY 1994 COLONOSCOPY [address] CANCER SCREENING 1994 CT COLONOGRAPHY 1994 FECAL OCCULT BLOOD TEST 1994 FIT Testing (1 year) 1994 ZOSTER VACCINE (1 of 2) 1999 LIPID PANEL 01/25/2022 01/25/2021 ANNUAL WELLNESS VISIT 06/25/2022 HEPATITIS C SCREENING 06/25/2022 HEMOGLOBIN A1C 12/25/2022 06/27/2022, 01/25/2021 COVID-19 Vaccine ( - 2023-2 5 season) 2024 RSV Vaccine - Adults (1 - 1- dose 75+ series) 2024 INFLUENZA VACCINE 05/10/2025 06/14/2020, , 07/08/2018, Additional history exists Procedures Procedure Name Priority Date/Time Associated Diagnosis Comments POCT GLYCOSYLATED HEMOGLOBIN (HGB A1C) Routine 06/27/2022 10:09 AM EST Type 2 diabetes mellitus with other circulatory complication, with long-term current use of insulin from Last 3 Months or Most Recently Relevant to Health Maintenance Results * POC Glycosylated Hemoglobin (Hb A1C) (06/27/2022 10:09 AM EST) Hemoglobin A1C 10.6 % [facility] Lot Number [id number] [facility] Expiration Date 04-23-24 [facility] Blood 06/27/2022 10:0 9 AM EST us Bassam Krishnamurthy MD POINT OF CARE TEST ORDERABL ES Final Result [facility]
[address] [place] [address], [place] [phone] from Last 3 Months or Most Recently Relevant to Health Maintenance Insurance EMILY PICHARDO [id number] [facility] MEDICARE ADVANTAGE Care Teams Machine Rope Maker Relationship Specialty Start Date End Date Cosme Garcia MD [address] [facility] [address] [place] [address] PCP - General Family Medicine 01/04/21
--- OUTSIDE RECORDS SUMMARY | 2025-02-24 12:36 | XMS_ITS | Patient Health Record ---
Author Organization [facility] Address [address] [facility] [address] [place] [id number] Care Team Providers Care Lapidarist Name Role Phone Cosme Garcia Primary Care Provider Allergies No Known Allergies Results Component Value Reference Range Notes Type and Cross 2 units PRBC Reviewed date:02/16/2025 09:46:08 AM Interpretation: Performing Lab: Notes/Report: P-Reticulocyte Count Reviewed date:07/22/2024 10:58:36 AM Interpretation:2.2 Performing Lab: Notes/Report: Test performed by [facility] [address] [place] [address] , [address], [place] [address] Andrea Flores MD, Television Station Manager CLIA: [id number] Reticulocyte Count 2.2 0.5-2.1 % P-Iron with Transferrin Satu ration Reviewed date:07/22/2024 10:58:35 AM Interpretation:Normal Performing Lab: Notes/Report: Test performed by [facility] [address] [place] [address] , [address], [place] [address] Andrea Flores MD, Television Station Manager CLIA: [id number] Iron 65 37-145 ug/dL Transferrin 244 200-360 mg/dL Transferrin Saturation Percentage 19 15-50 % P-Comprehensive Metabolic Pa luis (CMP) Reviewed date:07/22/2024 10:58:36 AM Interpretation:gluc 249, bun 25, Cr 1.23, gfr 46 Performing Lab: Notes/Report: Test performed by [facility] [address] [place], [place] [address] [place] , [address], [place] [address] Andrea Flores MD, Television Station Manager CLIA: [id number] Sodium 139 135-145 mmol/L Potassium 4.5 3.5-5.3 [...] date:07/26/2024 03:18:46 PM Interpretation: Performing Lab: Notes/Report: P-TSH reflex to FT4 Reviewed date:06/24/2024 08:26:05 AM Interpretation:95.3 Performing Lab: Notes/Report: Test performed by [facility] [address] [place] [address] , [place] [address] Andrea Flores MD, Television Station Manager CLIA: [id number] TSH reflex to FT4 95.30 0.43-5.25 mU/L Q-Bqzptwva-N Reviewed date:06/24/2024 08:26:05 AM Interpretation:24 Performing Lab: Notes/Report: Test performed by [facility] [address] [place] [address] , [place] [address] Andrea Flores MD, Television Station Manager CLIA: [id number] Troponin-T 24 <6-18 ng/L Patients who are prescribed biotin may exhibit elevated troponin results. Please interpret results accordingly. P-Troponin I Reviewed date:06/24/2024 08:24:15 AM Interpretation: Performing Lab: Notes/Report: P-Lipase Reviewed date:06/24/2024 08:26:05 AM Interpretation:9.9 Performing Lab: Notes/Report: Test performed by [facility] [address] [place] [address] , [address], [place] [address] Andrea Flores MD, Television Station Manager CLIA: [id number] Lipase 9.9 13.0-60.0 u/L P-T4 Free (thyroxine) Reviewed date:06/24/2024 08:26:05 AM Interpretation:0.52 Performing Lab: Notes/Report: Test performed by [facility] [address] [place] [address] , [place] [address] Andrea Flores MD, Television Station Manager CLIA: [id number] Thyroxine Free (free T4) 0.52 0.86-1.76 ng/dL P-Culture, Urine Reviewed date:06/27/2024 03:25:07 PM Interpretation:sensitive Performing Lab: Notes/Report: Test performed by [facility] [address] [place] [address] , [address], [place] [address] Andrea Flores MD, Television Station Manager CLIA: [id number] Specimen Source Urine - Void Culture, Urine [...] 34 Performing Lab: Notes/Report: Test performed by [facility] [address] [place] [address] , [address], [place] [address] Andrea Flores MD, Television Station Manager CLIA: [id number] Sodium 140 135-145 mmol/L Potassium 4.6 3.5-5.3 [...] Interpretation:26 Performing Lab: Notes/Report: Test performed by [facility] [address] [place] [address] , [address], [place] [id number] Andrea Flores MD, Television Station Manager CLIA: [id number] Amylase 26 28-100 U/L Glycohemoglobin A1c (in [...] >1.030 Ketone Trace Bili 1+ Gluc 1+ H-Iron, TIBC, Iron Saturatio n Reviewed date:01/24/2025 10:24:48 AM Interpretation: Performing Lab: Notes/Report: FE 28 37-170 ug/dL DTIBC 335 265-497 ug/dL IRONSAT 8.26639 15-55 % H-Ferritin Reviewed date:01/24/2025 10:24:48 AM Interpretation: Performing Lab: Notes/Report: BROOKLYNN 9.24 11.1-264 ng/ml H-Troponin I Reviewed date:01/24/2025 10:24:48 AM Interpretation: Performing Lab: Notes/Report: TROP 0.56 0.00-0.034 ng/ml CRITICAL RESULT Results called and read back/verified to: live on 01/24/25 at 0710 By Nereida Matias, CATTLE RANCHER <0.012-0.034 ng/mL NORMAL 0.035 - >0.120 ng/mL [...] Biotin is occasionally prescribed for medical conditions. H-TSH Reviewed date:07/15/2024 10:22:34 AM Interpretation:79.3 Performing [...] BUN 18 7-17 mg/dl Delta: 43 on 07/14/24-1155 CREATT 1.20 0.52-1.04 mg/dl Delta: 1.70 on 07/14/24 CRCLE 49 50-200 mL/min GFRAA 53 >60 ML/MIN Delta: 35 on 07/14/24 EGFR 44 >60 ml/min GLU 95 74-100 mg/dl CA 8.2 8.4-10.2 mg/dl H-BMP Reviewed date:01/24/2025 10:24:48 AM Interpretation: Performing [...] 0.0 0-0.2 K/mm3 NRBC# 0 IG# 0.04 Urinalysis - Inhouse Reviewed date:04/20/2024 12:19:49 PM Interpretation: Performing Lab: Notes/Report: Color/Clarity yellow/clear Leuk neg Nitrite neg Urobili 3.2 Protein neg pH 5.5 Blood neg Sp. Gr. 1.020 Ketone neg Bili neg Gluc 2+ Glucose (In-House) Reviewed date:10/24/2024 12:19:30 PM Interpretation:140 [...] 47 Performing Lab: Notes/Report: Test performed by [facility] [employer] [facility] [facility] , [address], [place] [address] Andrea Flores MD, Television Station Manager CLIA: [id number] Sodium 144 135-145 mmol/L Potassium 4.4 3.5-5.3 [...] Interpretation:Normal Performing Lab: Notes/Report: Test performed by [facility] [address] [place] [address] , [place] [address] Andrea Flores MD, Television Station Manager CLIA: [id number] Thyroxine Free (free T4) 1.66 0.86-1.76 ng/dL P-Iron Reviewed date:10/24/2024 12:19:30 PM Interpretation:Normal Performing Lab: Notes/Report: Test performed by [facility] [address] [place] [address] , [place] [address] Andrea Flores MD, Television Station Manager CLIA: [id number] Iron 42 37-145 ug/dL P-Lipid Panel Reviewed date:10/24/2024 12:19:30 PM Interpretation:Normal Performing Lab: Notes/Report: Test performed by [facility] [address] [place] [address] , [place] [address] Andrea Flores MD, Television Station Manager CLIA: [id number] Cholesterol 167 <200 mg/dL Triglycerides 108 <150 [...] Interpretation:Normal Performing Lab: Notes/Report: Test performed by [facility] [address] , [place] [address] Andrea Flores MD, Television Station Manager CLIA: [id number] Phosphorus 4.2 2.5-4.5 mg/dL P-TSH Reviewed date:10/24/2024 12:19:30 PM Interpretation:7.02 Performing Lab: Notes/Report: Test performed by [facility] [address] [place] [address] Andrea Flores MD, Television Station Manager CLIA: [id number] TSH 7.02 0.43-5.25 mU/L P-Microalbumin/Creatinine, R andom Urine Sample Reviewed date:10/24/2024 12:19:30 PM Interpretation:Album/Creat 65 Performing Lab: Notes/Report: Test performed by [facility] [employer] [address] [place] [address] , [address], [place] [address] Andrea Flores MD, Television Station Manager CLIA: [id number] Albumin/Creatinine Ratio, Urine 65 0-30 ug/mg Microalbumin, Urine, Random 3.5 Creatinine, Urine 54.1 CBC Fingerstick (in house) Reviewed date:02/09/2025 03:06:35 [...] - 38 plat 394 100 - 400 Reason For Referral No Information Medications Medication SIG (Take, Route, Frequency, Duration) Notes Start Date End Date Status Venofer 20 MG/ML 5 mL Intravenous; Duration: 30 day(s) 02/09/2025 Active Famotidine 20 MG TAKE 1 TABLET BY EMMA TH TWICE DAILY; Duration: 30 Active Ondansetron 4 MG [...] (in the morning) Active FreeStyle Jg 3 [place] - as directed 08/19/2024 Active FreeStyle Jg [...] A ctive Mupirocin 2 % 1 application Fiction And Nonfiction Author ally Twice a day 02/09/2025 Active BD [...] orally once a day 0 03/09/2019 Active Pantoprazole Sodium 40 MG 1 tablet Orall y Once a day; Duration: 30 days Active Immunizations Vaccine Route Administration Date Status [...] W/U Status Risk Notes Problem Essential hypertension (92705268) Essential (primary) hypertension (I10) Active confirmed Problem Hyperkalemia (03083213) Hyperkalemia (E87.5) Active confirmed Problem Essential hypertension (28129726) Essential hypertension (I10) Active confirmed Problem Body mass index 30+ - obesity (978248821) BMI 30.0-30.9,adult (Z68.30) Active confirmed Problem Overactive urinary bladder (disorder) (183027504) OAB (overactive bladder) (N32.81) Active confirmed Problem Hypoglycemia due to type 2 diabetes mellitus (904879305854650) Type 2 diabetes mellitus with hypoglycemia without coma (E11.649) Active confirmed Problem Mixed hyperlipidemia (170093404) Mixed hyperlipidemia (E78.2) Active confirmed Problem Chronic pulmonary edema (98249627) Chronic pulmonary edema (J81.1) Active confirmed Problem Long-term current use of insulin (238185613) residential (current) use of insulin (Z79.4) Active confirmed Problem Type II diabetes mellitus without complication (945224169) Type 2 diabetes mellitus without complication (E11.9) Active confirmed Problem Acquired hypothyroidism (131818115) Acquired hypothyroidism (E03.9) Active confirmed Problem Obesity (518594752) Non morbid obesity due to excess calories (E66.09) Active confirmed Problem Atherosclerotic heart disease of kenaitze coronary artery without angina pectoris (958321910533154) Coronary artery disease involving kenaitze coronary artery of kenaitze heart without angina pectoris (I25.10) Active confirmed Problem Iron deficiency anemia due to chronic blood loss (150951512) Iron deficiency anemia due to chronic blood loss (D50.0) Active confirmed Problem Anemia (547738311) Anemia, unspecified type (D64.9) Active confirmed Problem Atrial fibrillation (74943408) PAF (paroxysmal atrial fibrillation) (I48.0) Active confirmed Problem Claudication (84214517) Claudication (I73.9) Active confirmed Problem Hyperlipidaemia (27428322) Hyperlipidemia, unspecified hyperlipidemia type (E78.5) Active confirmed Problem Atrial fibrillation (90122852) Atrial fibrillation with RVR (I48.91) Active confirmed Problem Recurrent falls (181212725) Frequent falls (R29.6) Active confirmed Problem Transient ischemic attack (421226576) TIA (transient ischemic attack) (G45.9) Active confirmed Problem Peripheral vascular disease (549817247) PAD (peripheral artery disease) (I73.9) Active confirmed Problem Atherosclerotic heart disease of kenaitze coronary artery without angina pectoris (486928820208334) Atherosclerosis of kenaitze coronary artery without angina pectoris, unspecified whether kenaitze or transplanted heart (I25.10) Active confirmed Problem Occlusion and stenosis of multiple and bilateral cerebral arteries (257910632) Bilateral carotid artery stenosis (I65.23) Active confirmed Problem Carotid artery occlusion (550584838) Stenosis of carotid artery, unspecified laterality (I65.29) Active confirmed Problem Obesity (208478113) Non morbid obesity (E66.9) Active confirmed Problem History of placement of stent for coronary artery disease (situation) (566029392) S/P coronary artery stent placement (Z95.5) Active confirmed Problem Type II diabetes mellitus without complication (015628080) Type 2 diabetes mellitus without complication, unspecified whether duralumin mechanic insulin use (E11.9) Active confirmed Problem Hyperglycemia due to type 2 diabetes mellitus (736111869786272) Uncontrolled type 2 diabetes mellitus with hyperglycemia (E11.65) Active confirmed Problem Atherosclerosis of bilateral carotid arteries (disorder) (477449910519610) Bilateral carotid artery disease, unspecified type (I77.9) Active confirmed Problem Disorder of carotid artery (disorder) (694326146) Carotid artery disease, unspecified laterality, unspecified type (I77.9) Active confirmed Problem Diabetic renal disease (644949121) Type 2 diabetes mellitus with diabetic chronic kidney disease, unspecified CKD stage, unspecified whether duralumin mechanic insulin use (E11.22) Active confirmed Problem Chronic kidney disease stage 3B (disorder) (775750448) Chronic kidney disease, stage 3b (N18.32) Active confirmed Problem Chronic kidney disease stage 3A (378259607) Stage 3a chronic kidney disease (N18.31) Active confirmed Problem Urinary incontinence (668882457) Urinary incontinence in female (R32) Active confirmed Vital Signs Heart Rate 81 /min 02/09/2025 Blood pressure diastolic 72 mm Hg 02/09/2025 Height 63 in 02/09/2025 Blood pressure systolic 122 mm Hg 02/09/2025 Weight 173 lbs 02/09/2025 BMI 30.64 kg/m2 02/09/2025 Encounters Encounter Location Date Provider [facility] [address] [place], [place] [id number] 04/20/2024 Cosme Tiro OAB (overactive blad rocio) N32.81 [facility] [address] [place], [place] [id number] 06/22/2024 Cosme Tiro Nausea and vomiting, unspecified vomiting type R11.2 ; Intermittent diarrhea R19.7 ; Urinary incontinence in female R32 ; Periumbilical pain R10.33 ; Type 2 diabetes mellitus without complication E11.9 and Acute UTI N39.0 [facility] [address] [facility] [address] [place], [place] [id number] 07/21/2024 Cosme Tiro Nausea and vomiting, unspecified vomiting type R11.2 ; Anemia, unspecified type D64.9 ; Type 2 diabetes mellitus with hypoglycemia without coma E11.649 and hemodialysis charge nurse (current) use of insulin Z79.4 [facility] [address] [facility] [address] [place], [place] [id number] 08/31/2024 Cosme Tiro Open wound of right heel, initial encounter S91.301A [facility] [address] [place], [place] [id number] 10/21/2024 Cosme Tiro Type 2 diabetes darren itus without complication E11.9 ; Essential hypertension I10 ; Stage 3a chronic kidney disease N18.31 ; Anemia, unspecified type D64.9 ; Acquired hypothyroidism E03.9 and Hyperlipidemia, unspecified hyperlipidemia type E78.5 [facility] [address] [place], [place] [id number] 02/09/2025 Cosme Tiro Iron deficiency anem ia due to chronic blood loss D50.0 ; Gastrointestinal hemorrhage, unspecified gastrointestinal hemorrhage type K92.2 ; Open wound of left lower leg, initial encounter S81.802A ; PAF (paroxysmal atrial fibrillation) I48.0 ; PAD (peripheral artery disease) I73.9 ; Type 2 diabetes mellitus with diabetic chronic kidney disease, unspecified CKD stage, unspecified whether duralumin mechanic insulin use E11.22 ; Chronic kidney disease, stage 3b N18.32 and Non morbid obesity due to excess calories E66.09 [facility] [address] [place], [place] [id number] 02/21/2025 Cosme Tiro [facility] [address] [place] [id number] 06/24/2024 Cosme Tiro [facility] [address] [place] [id number] 06/29/2024 Cosme Tiro [facility] [address] [place] [id number] 07/22/2024 Cosme Tiro [facility] [address] [place] [id number] 08/04/2024 Cosme Tiro [facility] [address] [place] [id number] 08/16/2024 Cosme Tiro [facility] [address] [place] [id number] 08/19/2024 Cosme Tiro [facility] [address] [place] [id number] 08/19/2024 Cosme Tiro [facility] [address] [place] [id number] 08/25/2024 Cosme Tiro [facility] [address] [place] [id number] 09/08/2024 Cosme Tiro [facility] [address] [place] [id number] 09/08/2024 Cosme Tiro Type 2 diabetes darren itus with hypoglycemia without coma E11.649 [facility] [address] [place], [place] [id number] 10/07/2024 Cosme Tiro [facility] [address] [place] [id number] 10/24/2024 Cosme Tiro [facility] [address] [place], [place] [id number] 01/25/2025 Cosme Tiro [facility] [address] [place] [id number] 02/15/2025 Cosme Tiro Iron deficiency anem ia due to chronic [...] right heel, initial encounter (ICD-10 - S91.301A) 10/21/2024 Essential hypertension (ICD-10 - I10) 10/21/2024 Type 2 diabetes mellitus without complication (ICD-10 - E11.9) 02/09/2025 Iron deficiency anemia due to chronic blood loss (ICD-10 - D50.0) 02/09/2025 Gastrointestinal hemorrhage, unspecified gastrointestinal hemorrhage type (ICD-10 - K92.2) Patient has follow up schedules with Dr. Lewis 02/15/2025 Iron deficiency anemia due to chronic blood loss (ICD-10 - D50.0) 09/08/2024 Type 2 diabetes mellitus with hypoglycemia without coma (ICD-10 - E11.649) 02/09/2025 Open wound of left lower leg, initial encounter (ICD-10 - S81.802A) 10/21/2024 Stage 3a chronic kidney disease (ICD-10 - N18.31) 06/22/2024 Urinary incontinence in female (ICD-10 - R32) 07/21/2024 Type 2 diabetes mellitus with hypoglycemia without coma (ICD-10 - E11.649) 07/21/2024 residential (current) use of insulin (ICD-10 - Z79.4) 06/22/2024 Periumbilical pain (ICD-10 - R10.33) 10/21/2024 Anemia, unspecified type (ICD-10 - D64.9) 02/09/2025 PAF (paroxysmal atrial fibrillation) (ICD-10 - I48.0) 02/09/2025 PAD (peripheral artery disease) (ICD-10 - I73.9) 06/22/2024 Type 2 diabetes mellitus without complication (ICD-10 - E11.9) 10/21/2024 Acquired hypothyroidism (ICD-10 - E03.9) 06/22/2024 Acute UTI (ICD-10 - N39.0) 10/21/2024 Hyperlipidemia, unspecified hyperlipidemia type (ICD-10 - E78.5) 02/09/2025 Type 2 diabetes mellitus with diabetic chronic kidney disease, unspecified CKD stage, unspecified whether mcc insulin use (ICD-10 - E11.22) 02/09/2025 Chronic kidney disease, stage 3b (ICD-10 - N18.32) 02/09/2025 Non morbid obesity due to excess calories (ICD-10 - E66.09) 02/09/2025 Other Discharge summary with available lab/diagnostic imaging results obtained and reviewed. Discharge medication list reconciled. Appropriate counseling provided. Moderate Complexity Plan Of Treatment Pending Test Test Name Order Date Cologuard 12/18/2021 Next Appt Details Provider Name:Cosme Carbone Dandre ry, 03/27/2025 09:30:00 AM, [address], [address], [place], [place], [id number], Insurance Providers Payer Name Payer Address Payer Phone Subscriber Number Group Number Insured Name Patient Relationship to Insured Coverage Start Date Coverage End Date [employer] (MEDICAR E) [address] [address] [place] [address] [id number] Yesi Fernandez Self - patient is the [...]
--- OUTSIDE RECORDS SUMMARY | 2025-02-24 12:36 | XMS_ITS | Clinical Summary ---
Author Organization Healthcare Address [address] [place] [address] Care Team Providers Care Maintenance Engineer Name Role Phone Cosme Garcia MD Primary Care Provider + [phone] Allergies No known active allergies Medications metFORMIN [...] lisinopril. Right groin access, left neck incision SKEINS YARN EXAMINER, WNL No heavy lifting (greater than 5 [...] Wellness (AWV) 1950 [facility]-/Child/Adol SDOH Screenings 1950 [id number] Vaccine (#1) 1955 [facility]-Obesity Intervention 1956 Diabetes: [...] this topic Medical Devices Implanted Type Area Marketing Services Manager Device Identifier Shelf Expiration Date Model / Serial / Lot Stent Transcarotid System 9mm X 30mm - [id number] Implanted:Qty: 1 on 03/06/2021 by Leo Saleh MD at [id number] 03/09/2023 SR-0930-C S / / [id number] Stent Transcarotid System 8mm X 30mm - [id number] Implanted:Qty: 1 on 10/22/2021 by Leo Saleh MD at [facility] Left: Carotid [id number] 02/07/2024 SR-0830-C S / / [id number] Procedures Procedure Name Priority Date/Time Associated Diagnosis [...] ORDERABLES Final Re sult Performing Organization Address City/[facility]/ZIP Co de Phone Number [facility] [address] [place] [address] * Castella Hepatitis C Antibody (01/25/2021 2:56 PM EDT) [facility] Hepatitis C Antibody Negative Negative 01/25/2021 5:15 PM EDT [facility] Blood Venous blood specimen / Unknown Venipuncture / Unknown 01/25/2021 2:56 PM EDT 01/25/2021 3:04 PM EDT Bob Brown MD LAB BLOOD ORDERABLES Final Re sult Performing Organization Address City/[facility] Co de Phone Number [facility] [address] [place] [address] from Last 3 Months or Most Recently Relevant to Health Maintenance Insurance [facility] MEDICARE Advance Directives Documents on File Type Date Recorded Patient Inventory Audit Clerk Expl anation Advance Directives and Living Will 03/06/2021 Power of Post Anesthesia Room Nurse 01/25/2021 * Full Code (Latest Code Status on File) Date Activated Date Inactivated Comments 10/22/2021 10:32 AM 10/24/2021 5:12 PM Question Answer Comments Patient has decision-making capacity? Yes Care Teams Maintenance Engineer Relationship Specialty Start Date End Date Cosme Garcia MD [address] [facility] [address] [place] [address] PCP - General 01/24/21
[2025-02-24] MEDS: IRON SUCROSE COMPLEX 200 MG in 0.9 % SODIUM CHLORIDE 100 ML 220 MG IV (12:49)
[2025-02-24 12:55] VITALS: BP 154/85; PULSE 84; RESP 18; O2SAT 97
[2025-02-24 12:55] LABS: Hematocrit 30.7 % (37.0-47.0); Hemoglobin 9.3 g/dL (12.2-16.2)
[2025-02-24 13:30] VITALS: BP 148/79; PULSE 86; RESP 18; O2SAT 97
== END 2025-02-24 14:07 | disposition home or self-care (01) ==
LOC: INF 12:34
PROVIDERS: PCP Family Medicine; Visit Provider Family Medicine
DX: D50.9 Iron deficiency anemia, unspecified (principal); K92.2 Gastrointestinal hemorrhage, unspecified
CPT/HCPCS: 85014; 85018; 96365; J1756

== ENCOUNTER 2025-02-27 12:07 | Outpatient (CLI) | payer MEDICARE, OTHER, SELFPAY ==
--- OUTSIDE RECORDS SUMMARY | 2025-02-09 07:00 | XMS_ITS ---
Author Organization [facility] Address [address] [facility] [address] [place] [phone] Care Team Providers Care Naval Gunfire Liaison Officer Name Role Phone Cosme Garcia Primary Care [...] 394 100 - 400 REASON FOR VISIT [facility] d/c f/u Medications Medication SIG (Take, [...] UNITS) Active Mupirocin 2 % 1 application Estate Attorney ally Twice a day 02/09/2025 Active BD [...] DAILY; Duration: 30 Active FreeStyle Jg 3 [place] - as directed 08/19/2024 Active FreeStyle Jg 3 Plus Sensor - Apply one sensor every 14 days; Duration: 28 days 08/16/2024 Active Problems Problem Type SNOMED Code ICD Code Onset Dates Problem Status W/U Status Risk Notes Problem Iron deficiency anemia due to chronic blood loss (577031665) Iron deficiency anemia due to chronic blood loss (D50.0) Active confirmed Problem Diabetic renal disease (576229371) Type 2 diabetes mellitus with diabetic chronic kidney disease, unspecified CKD stage, unspecified whether half-way insulin use (E11.22) Active confirmed Problem Chronic kidney disease stage 3B (disorder) (479610401) Chronic kidney disease, stage 3b (N18.32) Active confirmed Vital Signs Weight 173 lbs 02/09/2025 Blood pressure systolic 122 mm Hg 02/10/20 25 Blood pressure diastolic 72 mm Hg 025 Heart Rate 81 /min 02/09/2025 Height 63 in 02/09/2025 BMI 30.64 kg/m2 02/09/2025 Encounters Encounter Location Date Provider Diagnosis [facility] [address] [place], [place] [phone] 02/09/2025 Cosme Garcia Iron deficiency anem ia due to chronic blood loss D50.0 ; Gastrointestinal hemorrhage, unspecified gastrointestinal hemorrhage type K92.2 ; Open wound of left lower leg, initial encounter S81.802A ; PAF (paroxysmal atrial fibrillation) I48.0 ; PAD (peripheral artery disease) I73.9 ; Type 2 diabetes mellitus with diabetic chronic kidney disease, unspecified CKD stage, unspecified whether intermediate project manager insulin use E11.22 ; Chronic kidney [...] kidney disease, unspecified CKD stage, unspecified whether half-way insulin use (ICD-10 - E11.22) 02/09/2025 Chronic [...] [address], [address] , [place], [place], [phone], Progress Notes * Alec FERNANDEZOB: 9 (74 yo F)Acc No.[id number]:02/09/2025 Patient: Yesi UGALDE Provider: Damion Garcia M.D. :1950 A ge:74 Y S ex:Female Date:02/09/2025 Address:[address] [place] [address] [place], [id number] Subjective: * Chief Complaints: * 1 . [facility] d/c f/u. * HPI: H PI: Patient is here today for a Transition of Care Visit. Discharge from the following Facility: [facility] with diagnosis of Iron Deficiency Anemia, [...] 14 days , Taking FreeStyle Jg 3 [place] - Device as directed , Taking Jardiance [...] of left lower leg, initial encounter - S80.418I 4 . P AF (paroxysmal atrial fibrillation) - I48.0 5 . P AD (peripheral artery disease) - I73.9 6 . T ype 2 diabetes mellitus with diabetic chronic kidney disease, unspecified CKD stage, unspecified whether half-way insulin use - E11.22 7 . C [...] G 2211 Complex e/[place], [address] [facility] 14 DAY DISCH, 1111F [facility] MED/CURENT MED MERGE, 31307 CAPILLARY BLOOD DRAW, 72743 CBC WITH AUTO DIFF, 1036F TOBACCO NON-USER, G8783 BP SCR PRFRM RCMDD DEFIND SCR INTVL, G8752 MOST RECENT SYSTOLIC BP < 140MM HG, G8754 MOST RECENT DIASTOLIC BP < 90MM HG * Follow Up: 4 to 6 Weeks * Images: Billing Information: * Visit Code: 19920 Office Visit, Est Pt., Level 4. * Procedure Codes: G2211 Complex e/[place]. [address] [facility] 14 DAY DISCH. 1111F [facility] MED/CURENT MED MERGE. 92148 CAPILLARY BLOOD DRAW. 82173 CBC WITH AUTO DIFF. 1036F TOBACCO NON-USER. G8783 BP SCR PRFRM RCMDD DEFIND SCR INTVL. G8752 MOST RECENT SYSTOLIC BP < 140MM HG. G8754 MOST RECENT DIASTOLIC BP < 90MM HG. * Electronic signature of Carol Garcia MD on 02/27/2025 at 12:15 PM EDT Sign off status: Pending * Provider: Damion Garcia M.D. Date: 02/09/2025 Generated for Alexander camp/Vamsi/Jakobitting on: 0 02/27/2025 12:15 PM EDT History and Physical Notes * HPI (History of Present Illness) Category Sub-Category Detail Notes Category Not es HPI Patient is here today for a [facility] sition of Care Visit. Discharge from the following Facility: [facility] with diagnosis of Iron Deficiency Anemia, [...]
--- OUTSIDE RECORDS SUMMARY | 2025-02-15 07:05 | XMS_ITS ---
Author Organization [facility] Address [address] [facility] 36 [facility] [address] [place] [phone] Care Team Providers Care Exceptional Needs Teacher Name Role Phone Cosme Garcia Primary Care Provider [phone] Results Component Value Reference Range Notes Type [...] Encounter Location Date Provider Diagnosis [facility] [address] [facility] 36 [facility] [address] [place] [id number] 02/15/2025 Cosme Garcia Iron deficiency anem ia [...] 03/27/2025 09:30:00 AM, [address] [facility], [address], [place], [id number], Progress Notes * Alec FERNANDEZOB: 9 (74 yo F)Acc No.[id number]:02/15/2025 Patient: Surendra UGALDEannie :1950 A ge:74 Y S ex:Female Address:[facility] [place], [address] * Refills Start Transfuse 2 Units PRBC [...] Date: Generated for Alexander camp/Vamsi/Jakobitting on: 0 02/27/2025 12:14 PM EDT
--- OUTSIDE RECORDS SUMMARY | 2025-02-20 09:30 | XMS_ITS ---
Author Organization [facility] Address [facility] [address] [place] [phone] Care Team Providers Care Pigment Processor Name Role Phone Cosme Garcia Primary Care Provider REASON FOR VISIT 4 month check Encounters Encounter Location Date Provider Diagnosis [facility] [address] [place] [id number] 02/20/2025 Cosme Garcia Plan Of Treatment Next Appt Details Provider Name:Cosme Amos ry, 03/27/2025 09:30:00 AM, [address], [address], [place], [phone], Progress Notes * URIAHSurendraBrandonOB: 9 (74 yo F)Acc No.[id number]:02/20/2025 Progress Notes Patient: Yesi UGALDE Provider: Damion Garcia M.D. :1950 A ge:74 Y S ex:Female Date:02/20/2025 Address:[facility] [id number] Subjective: * Chief Complaints: * 1 . 4 month check. * Medical History: Objective: * Vitals: Assessment: Plan: * Treatment: * Images: Billing Information: * Visit Code: * Procedure Codes: * Electronic signature of Carol Garcia MD on 02/27/2025 at 12:15 PM EDT Sign off status: Pending * Provider: Damion Garcia M.D. Date: 02/20/2025 Generated for Alexander camp/Vamsi/eTransmitting on: 02/27/2025 12:15 PM EDT
--- OUTSIDE RECORDS SUMMARY | 2025-02-27 12:22 | XMS_ITS | Clinical Summary ---
Author Organization [facility] Address [address] [place] [address] Care Team Providers Care Egg Worker Name Role Phone Cosme Garcia MD Primary Care Provider + [phone] Allergies No known active allergies Medications CYANOCOBALAMIN [...] controlling her portion sizes better -Counseled that extermination supervisor hyperglycemia can cause worsening neuropathy, kidney damage, [...] 10:09 AM EST) Hemoglobin A1C 10.6 % [facility] Lot Number [id number] [facility] Expiration Date 04-23-24 [facility] Blood 06/27/2022 10:0 9 AM EST us Bassam Krishnamurthy MD POINT OF CARE TEST ORDERABL ES Final Result [facility]
[address] [place] [address], [place] [phone] from Last 3 Months or Most Recently Relevant to Health Maintenance Insurance [place] PICHARDO [id number] [facility] MEDICARE ADVANTAGE Care Teams Egg Worker Relationship Specialty Start Date End Date Cosme Garcia MD [address] [facility] [address] [place] [address] PCP - General Family Medicine 01/04/21
--- OUTSIDE RECORDS SUMMARY | 2025-02-27 12:22 | XMS_ITS | Clinical Summary ---
Author Organization Healthcare Address [address] [place] [address] Care Team Providers Care Gang Pusher Name Role Phone Cosme Garcia MD Primary Care Provider + [phone] Allergies No known active allergies Medications metFORMIN [...] lisinopril. 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 HAND, WNL No heavy lifting (greater than 5 [...] Wellness (AWV) 1950 UKY-/Child/Adol SDOH Screenings 1950 [id number] Vaccine (#1) 1954 UKY-Obesity Intervention 1955 Diabetes: [...] this topic Medical Devices Implanted Type Area Pattern Weaver Device Identifier Shelf Expiration Date Model / Serial / Lot Stent Transcarotid System 9mm X 30mm - [id number] Implanted:Qty: 1 on 03/06/2021 by Leo Saleh MD at [facility] Inc-[id number] 03/09/2023 SR-0930-C S / / [id number] Stent Transcarotid System 8mm X 30mm - [id number] Implanted:Qty: 1 on 10/22/2021 by Leo Saleh MD at [facility] Left: Carotid [facility] Inc-[id number] 02/07/2024 SR-0830-C S / / [id number] Procedures Procedure Name Priority Date/Time Associated Diagnosis [...] Adults <6.0% Children and Adolescents <7.5% Source: [place] [employer]. Standards of medical care in diabetes,2017. Diabetes Care.2017:40 (suppl 1):S1-S135. HbA1c assay performed by an ion-exchange chromatography method that is certified traceable to the DCCT. Bob Brown MD LAB BLOOD ORDERABLES Final Re sult Performing Organization Address City/[facility]/ZIP Co de Phone Number HEALTHCARE LAB [address] [place] [address] * [place] Hepatitis C Antibody (01/25/2021 2:56 PM EDT) [facility] Hepatitis C Antibody Negative Negative 01/25/2021 5:15 PM EDT HEALTHCARE LAB Blood Venous blood specimen / Unknown Venipuncture / Unknown 01/25/2021 2:56 PM EDT 01/25/2021 3:04 PM EDT Bob Brown MD LAB BLOOD ORDERABLES Final Re sult Performing Organization Address City/[facility] Co de Phone Number HEALTHCARE LAB [address] [place] [address] from Last 3 Months or Most Recently Relevant to Health Maintenance Insurance [facility] MEDICARE Advance Directives Documents on File Type Date Recorded Patient Maintenance Representative Expl anation Advance Directives and Living Will 03/06/2021 Power of Locker Room Manager 01/25/2021 * Full Code (Latest Code Status on File) Date Activated Date Inactivated Comments 10/22/2021 10:32 AM 10/24/2021 5:12 PM Question Answer Comments Patient has decision-making capacity? Yes Care Teams Gang Pusher Relationship Specialty Start Date End Date Cosme Garcia MD [address] [facility] [address] [place] [address] PCP - General 01/24/21
--- OUTSIDE RECORDS SUMMARY | 2025-02-27 12:22 | XMS_ITS | Patient Health Record ---
Author Organization [facility] Address [address] [facility] [address] [place] [id number] Care Team Providers Care Casey Saw Operator Name Role Phone Cosme Garcia Primary Care Provider Allergies No Known Allergies Results Component Value Reference Range Notes Type and Cross 2 units PRBC Reviewed date:02/16/2025 09:46:08 AM Interpretation: Performing Lab: Notes/Report: H-Troponin I Reviewed date:01/24/2025 10:24:48 AM Interpretation: Performing Lab: Notes/Report: TROP 0.56 0.00-0.034 ng/ml CRITICAL RESULT Results called and read back/verified to: live on 01/24/25 at 0710 By Nereida Matias, TRAFFIC WAREHOUSE SUPERVISOR <0.012-0.034 ng/mL NORMAL 0.035 - >0.120 ng/mL [...] 37-170 ug/dL DTIBC 335 265-497 ug/dL IRONSAT 8.15360 15-55 % H-BMP Reviewed date:01/24/2025 10:24:48 AM [...] 0.0 0-0.2 K/mm3 NRBC# 0 IG# 0.04 CBC Fingerstick (in house) Reviewed date:02/09/2025 03:06:35 [...] - 38 plat 394 100 - 400 Urinalysis - Inhouse Reviewed date:06/22/2024 12:45:35 PM [...] Interpretation:26 Performing Lab: Notes/Report: Test performed by [facility] , [address], [place] [address] Andrea Flores MD, Director Translational CLIA: [id number] Amylase 26 28-100 U/L P-Comprehensive Metabolic Pa luis (CMP) Reviewed date:06/24/2024 08:26:05 AM Interpretation:gluc 264, Cr 1.58, gfr 34 Performing Lab: Notes/Report: Test performed by [facility] [address] [place] [address] , [place] [address] Andrea Flores MD, Director Translational CLIA: [id number] Sodium 140 135-145 mmol/L Potassium 4.6 3.5-5.3 [...] Interpretation:sensitive Performing Lab: Notes/Report: Test performed by [facility] [address] [place] [address] , [address], [place] [address] Andrea Flores MD, Director Translational CLIA: [id number] Specimen Source Urine - Void Culture, Urine [...] Interpretation:0.52 Performing Lab: Notes/Report: Test performed by [facility] [address] [place] [address] , [place] [address] Andrea Flores MD, Director Translational CLIA: [id number] Thyroxine Free (free T4) 0.52 0.86-1.76 ng/dL P-Lipase Reviewed date:06/24/2024 08:26:05 AM Interpretation:9.9 Performing Lab: Notes/Report: Test performed by [facility] [address] [place] [address] , [place] [address] Andrea Flores MD, Director Translational CLIA: [id number] Lipase 9.9 13.0-60.0 u/L P-Troponin I Reviewed date:06/24/2024 08:24:15 AM Interpretation: Performing Lab: Notes/Report: W-Liewdmbm-J Reviewed date:06/24/2024 08:26:05 AM Interpretation:24 Performing Lab: Notes/Report: Test performed by [facility] [address] [place] [address] , [address], [place] [address] Andrea Flores MD, Director Translational CLIA: [id number] Troponin-T 24 <6-18 ng/L Patients who are prescribed biotin may exhibit elevated troponin results. Please interpret results accordingly. P-TSH reflex to FT4 Reviewed date:06/24/2024 08:26:05 AM Interpretation:95.3 Performing Lab: Notes/Report: Test performed by [facility] [address] [place] [address] , [place] [address] Andrea Flores MD, Director Translational CLIA: [id number] TSH reflex to FT4 95.30 0.43-5.25 mU/L Hemoglobin/Hematocrit Reviewed date:02/25/2025 10:56:10 AM Interpretation: Performing Lab: Notes/Report: Urinalysis - Inhouse Reviewed date:04/20/2024 12:19:49 PM Interpretation: Performing Lab: Notes/Report: Color/Clarity yellow/clear Leuk neg Nitrite neg Urobili 3.2 Protein neg pH 5.5 Blood neg Sp. Gr. 1.020 Ketone neg Bili neg Gluc 2+ CBC Venipuncture (in house) Reviewed date:07/26/2024 03:18:46 PM Interpretation: Performing Lab: Notes/Report: P-Comprehensive Metabolic Pa luis (CMP) Reviewed date:07/22/2024 10:58:36 AM Interpretation:gluc 249, bun 25, Cr 1.23, gfr 46 Performing Lab: Notes/Report: Test performed by [facility] [address] [place] [address] , [address], [place] [id number] Andrea Flores MD, Director Translational CLIA: [id number] Sodium 139 135-145 mmol/L Potassium 4.5 3.5-5.3 [...] Interpretation:Normal Performing Lab: Notes/Report: Test performed by [facility] [address] [place] [address] , [address], [place] [address] Andrea Flores MD, Director Translational CLIA: [id number] Iron 65 37-145 ug/dL Transferrin 244 200-360 mg/dL Transferrin Saturation Percentage 19 15-50 % P-Reticulocyte Count Reviewed date:07/22/2024 10:58:36 AM Interpretation:2.2 Performing Lab: Notes/Report: Test performed by [facility] [address] [place] [address] , [address], [place] [id number] Andrea Flores MD, Director Translational CLIA: [id number] Reticulocyte Count 2.2 0.5-2.1 % Glucose (In-House) Reviewed date:10/24/2024 12:19:30 PM Interpretation:140 [...] 47 Performing Lab: Notes/Report: Test performed by [facility] [address] [place] [address] , [address], [place] [address] Andrea Flores MD, Director Translational CLIA: [id number] Sodium 144 135-145 mmol/L Potassium 4.4 3.5-5.3 [...] Interpretation:Normal Performing Lab: Notes/Report: Test performed by [facility] [address] , [place] [address] Andrea Flores MD, Director Translational CLIA: [id number] Thyroxine Free (free T4) 1.66 0.86-1.76 ng/dL P-Iron Reviewed date:10/24/2024 12:19:30 PM Interpretation:Normal Performing Lab: Notes/Report: Test performed by [facility] [address] , [place] [address] Andrea Flores MD, Director Translational CLIA: [id number] Iron 42 37-145 ug/dL P-Lipid Panel Reviewed date:10/24/2024 12:19:30 PM Interpretation:Normal Performing Lab: Notes/Report: Test performed by [facility] [address] [place] [address] , [address], [place] [address] Andrea Flores MD, Director Translational CLIA: [id number] Cholesterol 167 <200 mg/dL Triglycerides 108 <150 [...] Interpretation:Normal Performing Lab: Notes/Report: Test performed by [facility], [address] , [address], [place] [address] Anrdea Flores MD, Director Translational CLIA: [id number] Phosphorus 4.2 2.5-4.5 mg/dL P-TSH Reviewed date:10/24/2024 12:19:30 PM Interpretation:7.02 Performing Lab: Notes/Report: Test performed by [facility] [address] [place] [address] , [address], [place] [address] Andrea Flores MD, Director Translational CLIA: [id number] TSH 7.02 0.43-5.25 mU/L P-Microalbumin/Creatinine, R andom Urine Sample Reviewed date:10/24/2024 12:19:30 PM Interpretation:Album/Creat 65 Performing Lab: Notes/Report: Test performed by [facility] [address] [place] [address] , [address], [place] [address] Andrea Flores MD, Director Translational CLIA: [id number] Albumin/Creatinine Ratio, Urine 65 0-30 ug/mg Microalbumin, [...] 95 74-100 mg/dl CA 8.2 8.4-10.2 mg/dl Reason For Referral No Information Medications Medication [...] (in the morning) Active FreeStyle Jg 3 Protivin - as directed 08/19/2024 Active FreeStyle Jg [...] A ctive Mupirocin 2 % 1 application Auto Phone Installer ally Twice a day 02/09/2025 Active BD [...] W/U Status Risk Notes Problem Essential hypertension (84610911) Essential (primary) hypertension (I10) Active confirmed Problem Hyperkalemia (67707886) Hyperkalemia (E87.5) Active confirmed Problem Essential hypertension (33995904) Essential hypertension (I10) Active confirmed Problem Body mass index 30+ - obesity (917362037) BMI 30.0-30.9,adult (Z68.30) Active confirmed Problem Overactive urinary bladder (disorder) (344234894) OAB (overactive bladder) (N32.81) Active confirmed Problem Hypoglycemia due to type 2 diabetes mellitus (729369591455800) Type 2 diabetes mellitus with hypoglycemia without coma (E11.649) Active confirmed Problem Mixed hyperlipidemia (931563664) Mixed hyperlipidemia (E78.2) Active confirmed Problem Chronic pulmonary edema (57461301) Chronic pulmonary edema (J81.1) Active confirmed Problem Long-term current use of insulin (824505582) ad terminal makeup operator (current) use of insulin (Z79.4) Active confirmed Problem Type II diabetes mellitus without complication (605297751) Type 2 diabetes mellitus without complication (E11.9) Active confirmed Problem Acquired hypothyroidism (537619208) Acquired hypothyroidism (E03.9) Active confirmed Problem Obesity (131338497) Non morbid obesity due to excess calories (E66.09) Active confirmed Problem Atherosclerotic heart disease of [place] coronary artery without angina pectoris (710028631592465) Coronary artery disease involving [place] coronary artery of [place] heart without angina pectoris (I25.10) Active confirmed Problem Iron deficiency anemia due to chronic blood loss (461574722) Iron deficiency anemia due to chronic blood loss (D50.0) Active confirmed Problem Anemia (285861418) Anemia, unspecified type (D64.9) Active confirmed Problem Atrial fibrillation (47182941) PAF (paroxysmal atrial fibrillation) (I48.0) Active confirmed Problem Claudication (76056421) Claudication (I73.9) Active confirmed Problem Hyperlipidaemia (60726178) Hyperlipidemia, unspecified hyperlipidemia type (E78.5) Active confirmed Problem Atrial fibrillation (06301763) Atrial fibrillation with RVR (I48.91) Active confirmed Problem Recurrent falls (720816287) Frequent falls (R29.6) Active confirmed Problem Transient ischemic attack (653750105) TIA (transient ischemic attack) (G45.9) Active confirmed Problem Peripheral vascular disease (442377525) PAD (peripheral artery disease) (I73.9) Active confirmed Problem Atherosclerotic heart disease of [place] coronary artery without angina pectoris (004249694037935) Atherosclerosis of [place] coronary artery without angina pectoris, unspecified whether [place] or transplanted heart (I25.10) Active confirmed Problem Occlusion and stenosis of multiple and bilateral cerebral arteries (250272004) Bilateral carotid artery stenosis (I65.23) Active confirmed Problem Carotid artery occlusion (255701576) Stenosis of carotid artery, unspecified laterality (I65.29) Active confirmed Problem Obesity (292042190) Non morbid obesity (E66.9) Active confirmed Problem History of placement of stent for coronary artery disease (situation) (541383833) S/P coronary artery stent placement (Z95.5) Active confirmed Problem Type II diabetes mellitus without complication (020650039) Type 2 diabetes mellitus without complication, unspecified whether ad terminal makeup operator insulin use (E11.9) Active confirmed Problem Hyperglycemia due to type 2 diabetes mellitus (015486568382933) Uncontrolled type 2 diabetes mellitus with hyperglycemia (E11.65) Active confirmed Problem Atherosclerosis of bilateral carotid arteries (disorder) (335611387707496) Bilateral carotid artery disease, unspecified type (I77.9) Active confirmed Problem Disorder of carotid artery (disorder) (789108151) Carotid artery disease, unspecified laterality, unspecified type (I77.9) Active confirmed Problem Diabetic renal disease (683377609) Type 2 diabetes mellitus with diabetic chronic kidney disease, unspecified CKD stage, unspecified whether nursing home insulin use (E11.22) Active confirmed Problem Chronic kidney disease stage 3B (disorder) (049584370) Chronic kidney disease, stage 3b (N18.32) Active confirmed Problem Chronic kidney disease stage 3A (656494812) Stage 3a chronic kidney disease (N18.31) Active confirmed Problem Urinary incontinence (543045834) Urinary incontinence in female (R32) Active confirmed Vital Signs Heart Rate 81 /min 02/09/2025 Blood pressure diastolic 72 mm Hg 02/09/2025 Height 63 in 02/09/2025 Blood pressure systolic 122 mm Hg 02/09/2025 Weight 173 lbs 02/09/2025 BMI 30.64 kg/m2 02/09/2025 Encounters Encounter Location Date Provider Diagnosis [facility] [address] [facility] [address] [place], [place] [id number] 04/20/2024 Cosme [place] OAB (overactive blad rocio) N32.81 [facility] [address] [facility] [address] [place], [place] [id number] 06/22/2024 Cosme [place] Nausea and vomiting, unspecified vomiting type R11.2 ; Intermittent diarrhea R19.7 ; Urinary incontinence in female R32 ; Periumbilical pain R10.33 ; Type 2 diabetes mellitus without complication E11.9 and Acute UTI N39.0 [facility] [address] [facility] [address] [place], [place] [id number] 07/21/2024 Cosme [place] Nausea and vomiting, unspecified vomiting type R11.2 ; Anemia, unspecified type D64.9 ; Type 2 diabetes mellitus with hypoglycemia without coma E11.649 and skilled nursing (current) use of insulin Z79.4 [facility] [address] [place], [place] [id number] 08/31/2024 Cosme [place] Open wound of right heel, initial encounter S91.301A [facility] [address] [place], [place] [id number] 10/21/2024 Cosme [place] Type 2 diabetes darren itus without complication E11.9 ; Essential hypertension I10 ; Stage 3a chronic kidney disease N18.31 ; Anemia, unspecified type D64.9 ; Acquired hypothyroidism E03.9 and Hyperlipidemia, unspecified hyperlipidemia type E78.5 [facility] [address] [place], [place] [id number] 02/09/2025 Cosme [place] Iron deficiency anem ia due to chronic blood loss D50.0 ; Gastrointestinal hemorrhage, unspecified gastrointestinal hemorrhage type K92.2 ; Open wound of left lower leg, initial encounter S81.802A ; PAF (paroxysmal atrial fibrillation) I48.0 ; PAD (peripheral artery disease) I73.9 ; Type 2 diabetes mellitus with diabetic chronic kidney disease, unspecified CKD stage, unspecified whether ad terminal makeup operator insulin use E11.22 ; Chronic kidney disease, stage 3b N18.32 and Non morbid obesity due to excess calories E66.09 [facility] [address] [place], [place] [id number] 02/21/2025 Cosme [place] [facility] [address] [place], [place] [id number] 02/25/2025 Cosme [place] [facility] [address] [place] [id number] 06/24/2024 Cosme [place] [facility] [address] [place] [id number] 06/29/2024 Cosme [place] [facility] [address] [place] [id number] 07/22/2024 Cosme [place] [facility] [address] [place] [id number] 08/04/2024 Cosme [place] [facility] [address] [place] [id number] 08/16/2024 Cosme [place] [facility] [address] [place] [id number] 08/19/2024 Cosme [place] [facility] [address] [place] [id number] 08/19/2024 Cosme [place] [facility] [address] [place] [id number] 08/25/2024 Cosme [place] [facility] [address] [place] [id number] 09/08/2024 Cosme [place] [facility] [address] [place], [place] [id number] 09/08/2024 Cosme [place] Type 2 diabetes darren itus with hypoglycemia without coma E11.649 [facility] [address] [place] [id number] 10/07/2024 Cosme [place] [facility] [address] [place] [id number] 10/24/2024 Cosme [place] [facility] [address] [place] [id number] 01/25/2025 Cosme [place] [facility] [address] [place] [id number] 02/15/2025 Cosme [place] Iron deficiency anem ia due to chronic blood loss D50.0 Assessments Encounter Date Diagnosis (ICD Code) Assessment Notes Treatment Notes Treatment Clinical Notes Section Notes 04/20/2024 OAB (overactive bladder) (ICD-10 - N32.81) 06/22/2024 Intermittent diarrhea (ICD-10 - R19.7) 06/22/2024 Nausea and vomiting, unspecified vomiting type (ICD-10 - R11.2) 10/21/2024 Essential hypertension (ICD-10 - I10) 10/21/2024 [...] with hypoglycemia without coma (ICD-10 - E11.649) 08/31/2024 Open wound of right heel, initial encounter (ICD-10 - S91.301A) 07/21/2024 Anemia, unspecified type (ICD-10 - D64.9) Patient may need to have an iron infusion 07/21/2024 Nausea and vomiting, unspecified vomiting type (ICD-10 - R11.2) 07/21/2024 Type 2 diabetes mellitus with hypoglycemia without coma (ICD-10 - E11.649) 02/09/2025 Open wound of left lower leg, initial encounter (ICD-10 - S81.802A) 10/21/2024 Stage 3a chronic kidney disease (ICD-10 - N18.31) 06/22/2024 Urinary incontinence in female (ICD-10 - R32) 06/22/2024 Periumbilical pain (ICD-10 - R10.33) 10/21/2024 Anemia, unspecified type (ICD-10 - D64.9) 02/09/2025 PAF (paroxysmal atrial fibrillation) (ICD-10 - I48.0) 07/21/2024 skilled nursing (current) use of insulin (ICD-10 - Z79.4) 02/09/2025 PAD (peripheral artery disease) (ICD-10 - I73.9) 06/22/2024 Type 2 diabetes mellitus without complication (ICD-10 - E11.9) 10/21/2024 Acquired hypothyroidism (ICD-10 - E03.9) 06/22/2024 Acute UTI (ICD-10 - N39.0) 02/09/2025 Type 2 diabetes mellitus with diabetic chronic kidney disease, unspecified CKD stage, unspecified whether nursing home insulin use (ICD-10 - E11.22) 10/21/2024 Hyperlipidemia, unspecified hyperlipidemia type (ICD-10 - E78.5) 02/09/2025 Chronic kidney disease, stage 3b (ICD-10 - N18.32) 02/09/2025 Non morbid obesity due to excess calories (ICD-10 - E66.09) 02/09/2025 Other Discharge summary with available lab/diagnostic imaging results obtained and reviewed. Discharge medication list reconciled. Appropriate counseling provided. Moderate Complexity Plan Of Treatment Pending Test Test Name Order Date Cologuard 12/18/2021 Next Appt Details Provider Name:Cosme Tona Amos ry, 03/27/2025 09:30:00 AM, [address], [address], [place], [place], [id number], Insurance Providers Payer Name Payer Address Payer Phone Subscriber Number Group Number Insured Name Patient Relationship to Insured Coverage Start Date Coverage End Date [employer] (MEDICAR E) [address] [address] [place] [address] [id number] Yesi Fernandez Self - patient is the [...]
[2025-02-27 12:29] VITALS: BP 158/81; PULSE 72; RESP 16; TEMP 36.7; O2SAT 98
[2025-02-27] MEDS: IRON SUCROSE COMPLEX 200 MG in 0.9 % SODIUM CHLORIDE 100 ML 220 MG IV (12:29)
[2025-02-27] MEDS: SODIUM CHLORIDE 0.9% 10ML FLUSH SYRINGE 10 ML IV (12:29)
[2025-02-27 13:05] VITALS: BP 143/67; PULSE 86; RESP 16; TEMP 36.7; O2SAT 98
[2025-02-27 13:49] LABS: Occult Blood,Stool Positive (Negative)
== END 2025-02-27 13:10 | disposition home or self-care (01) ==
LOC: INF 12:08
PROVIDERS: Internal Medicine Gastroenterology; PCP Family Medicine; Visit Provider Family Medicine
DX: D50.9 Iron deficiency anemia, unspecified (principal); K92.2 Gastrointestinal hemorrhage, unspecified
CPT/HCPCS: 82272; 96365; G0328; J1756

== ENCOUNTER 2025-03-08 12:31 | Outpatient (CLI) | payer MEDICARE, OTHER, SELFPAY ==
--- OUTSIDE RECORDS SUMMARY | 2025-03-08 12:34 | XMS_ITS | Clinical Summary ---
Author Organization Healthcare Address [address] [place] [address] Care Team Providers Care Education Consultant Name Role Phone Cosme Garcia MD Primary Care Provider + [phone] Allergies No known active allergies Medications metFORMIN [...] lisinopril. 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 No heavy lifting (greater than 5 [...] Wellness (AWV) 1950 [facility]Y-/Child/Adol SDOH Screenings 1950 [id number] Vaccine (#1) 1955 [facility]Y-Obesity Intervention 1955 Diabetes: [...] this topic Medical Devices Implanted Type Area Welding Machine Operator Device Identifier Shelf Expiration Date Model / Serial / Lot Stent Transcarotid System 9mm X 30mm - [id number] Implanted:Qty: 1 on 03/06/2021 by Leo Saleh MD at [facility]-[id number] 03/09/2023 SR-0930-C S / / [id number] Stent Transcarotid System 8mm X 30mm - [id number] Implanted:Qty: 1 on 10/22/2021 by Leo Saleh MD at [facility] Left: Carotid [facility] Inc-[id number] 02/07/2024 SR-0830-C S / / [id number] Procedures Procedure Name Priority Date/Time Associated Diagnosis [...] Adults <6.0% Children and Adolescents <7.5% Source: [place] [employer]. Standards of medical care in diabetes,2017. Diabetes Care.2017:40 (suppl 1):S1-S135. HbA1c assay performed by an ion-exchange chromatography method that is certified traceable to the DCCT. Bob Brown MD LAB BLOOD ORDERABLES Final Re sult Performing Organization Address City/[facility]/ZIP Co de Phone Number HEALTHCARE LAB [address] [place] [address] * [place] Hepatitis C Antibody (01/25/2021 2:56 PM EDT) [facility] Hepatitis C Antibody Negative Negative 01/25/2021 5:15 PM EDT HEALTHCARE LAB Blood Venous blood specimen / Unknown Venipuncture / Unknown 01/25/2021 2:56 PM EDT 01/25/2021 3:04 PM EDT Bob Brown MD LAB BLOOD ORDERABLES Final Re sult Performing Organization Address City/[facility] Co de Phone Number HEALTHCARE LAB [address] [place] [address] from Last 3 Months or Most Recently Relevant to Health Maintenance Insurance [facility] MEDIC[facility] Advance Directives Documents on File Type Date Recorded 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 Yes Care Teams Education Consultant Relationship Specialty Start Date End Date Cosme Garcia MD [address] [facility] [address] [place] [address] PCP - General 01/24/21
--- OUTSIDE RECORDS SUMMARY | 2025-03-08 12:34 | XMS_ITS | Clinical Summary ---
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
[address] [place] [address], [place] [phone] from Last 3 Months or Most Recently Relevant to Health Maintenance Insurance EMILY PICHARDO [id number] [facility] Care Teams Oracle Database Consultant Relationship Specialty Start Date End Date Cosme Garcia MD [address] [facility] [address] [place] [address] PCP - General Family Medicine 01/04/21
[2025-03-08 13:03] LABS: Hematocrit 34.7 % (37.0-47.0); Hemoglobin 10.7 g/dL (12.2-16.2); Immature Granulocytes % 0.8 %; Mean Corpuscular HGB Conc 30.8 g/dL (31.8-35.4); Mean Corpuscular Hemoglobin 28.7 pg (27.0-31.2); Mean Corpuscular Volume 93.0 fl (81-99); Nucleated Red Blood Cells % 0 %; Platelet Count 347 K/mm3 (142-424); Red Blood Count 3.73 M/mm3 (4.20-5.40); Red Cell Distribution Width-SD 67.1 fL; White Blood Count 7.1 K/mm3 (4.8-10.8)
[2025-03-08 13:38] LABS: Iron 60 ug/dL (37-170)
[2025-03-08 13:47] LABS: Total Iron Binding Capacity 254 ug/dL (265-497)
[2025-03-08 14:14] LABS: Ferritin 169 ng/ml (11.1-264)
== END 2025-03-08 23:59 | disposition home or self-care (01) ==
LOC: LAB 12:32
PROVIDERS: PCP Family Medicine; Visit Provider Internal Medicine Medical Oncology
DX: D64.9 Anemia, unspecified (principal)
CPT/HCPCS: 36415; 82728; 83540; 83550; 85025

== ENCOUNTER 2025-03-15 08:07 | Outpatient (CLI) | payer MEDICARE, OTHER, SELFPAY ==
--- OUTSIDE RECORDS SUMMARY | 2025-02-15 07:05 | XMS_ITS ---
Author Organization [facility] Address [address] [facility] 36 [facility] [address] [place] [id number] Care Team Providers Care Mechanical Engineering Manager Name Role Phone Cosme Garcia Primary [...] Encounter Location Date Provider Diagnosis [facility] [address] [place] [id number] 02/15/2025 Cosme Garcia Iron deficiency anem ia [...] Appt Details Provider Name:Cosme Amos ry, 03/27/2025 10:00:00 AM, [address] [facility], [address], [place], [phone], Progress Notes * Alec FERNANDEZOB: 9 (74 yo F)Acc No.[id number]:02/15/2025 Patient: Surendra UGALDEannie :1950 A ge:74 Y S ex:Female Address:[facility] [place], [address] * Refills Start Transfuse 2 Units PRBC [...] Date: Generated for Alexander camp/Vamsi/Jakobitting on: 0 03/15/2025 08:10 AM EDT
--- OUTSIDE RECORDS SUMMARY | 2025-02-20 09:30 | XMS_ITS ---
Author Organization [facility] Address [address] [facility] [address] [facility] [address] [place] [id number] Care Team Providers Care Behavioral Consultant Name Role Phone Cosme Garcia Primary Care Provider [phone] REASON FOR VISIT 4 month check Encounters Encounter Location Date Provider Diagnosis [facility] [address] [place] [id number] 02/20/2025 Cosme Garcia Plan Of Treatment Next Appt Details Provider Name:Cosme Amos ry, 03/27/2025 10:00:00 AM, [address], [address], [place], [id number], Progress Notes * URIAHSurendraBrandonOB: 9 (74 yo F)Acc No.[id number]:02/20/2025 Progress Notes Patient: Yesi UGALDE Provider: Damion Garcia M.D. :1950 A ge:74 Y S ex:Female Date:02/20/2025 Address:[facility] [id number] Subjective: * Chief Complaints: * 1 . 4 month check. * Medical History: Objective: * Vitals: Assessment: Plan: * Treatment: * Images: Billing Information: * Visit Code: * Procedure Codes: * Electronic signature of Carol Garcia MD on 03/15/2025 at 08:12 AM EDT Sign off status: Pending * Provider: Damion Garcia M.D. Date: 02/20/2025 Generated for [facility] camp/Vamsi/eTransmitting on: 03/15/2025 08:12 AM EDT
--- OUTSIDE RECORDS SUMMARY | 2025-02-21 06:38 | XMS_ITS ---
Author Organization [facility] Address [address] [facility] [address] [facility] [address] [place] [id number] Care Team Providers Care Sampler Ovens Name Role Phone Cosme Garcia Primary Care Provider REASON FOR VISIT due dexa Encounters Encounter Location Date Provider Diagnosis [facility] [address] [facility] [address] [place] [id number] 02/21/2025 Cosme Garcia Screening for osteoporosis Z13.820 Assessments Encounter Date Diagnosis (ICD Code) Assessment Notes Treatment Notes Treatment Clinical Notes Section Notes 02/21/2025 Screening for osteoporosis (ICD-10 - Z13.820) Plan Of Treatment Pending Test Test Name Order Date Bone density 02/21/2025 Next Appt Details Provider Name:Cosme Amos ry, 03/27/2025 10:00:00 AM, [address] [facility] [address] [facility], [address], [place], [phone], Progress Notes * Alec FERNANDEZOB: 9 (74 yo F)Acc No.[id number]:02/21/2025 Patient: Yesi UGALDE :1950 A ge:74 Y S ex:Female Address:[facility] [place], [address] Subjective: * Chief Complaints: * D ue dexa * Medical History: * Surgical History: * Hospitalization/Major Diagno stic Procedure: * Medications: Objective: * Vitals: * Physical Examination: Assessment: * Assessment: 1. S creening for osteoporosis - Z13.820 (Primary) Plan: * Treatment: * Procedure Codes: * true * Date: Generated for Printi ng/Faxing/eTransmitting on: 0 03/15/2025 08:10 AM EDT
--- NOTE | 2025-03-15 08:00 | FL_ITS ---
FINAL REPORT CLINICAL HISTORY: positive occult stool ft 1:11 dap 3680.26 FINDINGS: SMALL BOWEL FOLLOW-THROUGH HISTORY: Anemia, positive occult stool. PROCEDURE: The patient ingested barium. Spot and overhead films were obtained. 21 images were saved. FINDINGS: The luggage maker film is unremarkable. The transit time to the colon is normal. Contrast reaches the colon at approximately 2 hours. The mucosal fold pattern is normal. The terminal ileum is not well visualized, but there are no abnormal loops of small bowel seen. FLUOROSCOPY TIME: 1 minute, 11 seconds Radiation dose in DAP: 3680.26 uGym2 IMPRESSION: Normal small bowel follow-through. Reviewed, Interpreted and Dictated by Trell Isabel MD Transcribed by Mckenzie Pichardo PA-C Authenticated and [facility]
--- OUTSIDE RECORDS SUMMARY | 2025-03-15 08:12 | XMS_ITS | Patient Health Record ---
[facility] Address [address] [place] [id number] Care Team Providers Care Accounts Receivable Bookkeeper Name Role Phone Cosme Garcia Primary Care [...] - 38 [phone] - 400 Type and Cross 2 units PRBC Reviewed date:02/16/2025 09:46:08 AM Interpretation: Performing Lab: Notes/Report: H-CBC Reviewed date:07/18/2024 09:06:15 AM Interpretation: Performing [...] 95 74-100 mg/dl CA 8.2 8.4-10.2 mg/dl H-Glycohemoglobin A1C Reviewed date:07/15/2024 10:22:34 AM Interpretation:8.2 Performing Lab: Notes/Report: HGBA1C 8.2 4.0-6.0 % < 6% Non-Diabetic Level < 7% Controlled Diabetic Level > 8% Poorly Controlled Diabetic Level H-TSH Reviewed date:07/15/2024 10:22:34 AM Interpretation:79.3 Performing Lab: Notes/Report: TSH 79.30 0.465-4.68 uIU/mL P-Microalbumin/Creatinine, R andom Urine Sample Reviewed date:10/24/2024 12:19:30 PM Interpretation:Album/Creat 65 Performing Lab: Notes/Report: Test performed by [facility], [facility] , [address], [place] [address] Andrea Flores MD, Boat Canvas Maker Installer CLIA: [id number] Albumin/Creatinine Ratio, Urine 65 0-30 ug/mg Microalbumin, Urine, Random 3.5 Creatinine, Urine 54.1 Urinalysis - Inhouse Reviewed date:04/20/2024 12:19:49 PM [...] 47 Performing Lab: Notes/Report: Test performed by [facility] , [address], [place] [address] Andrea Flores MD, Boat Canvas Maker Installer CLIA: [id number] Sodium 144 135-145 mmol/L Potassium 4.4 3.5-5.3 [...] Interpretation:Normal Performing Lab: Notes/Report: Test performed by [facility] [address] [place] [address] , [address], [place] [address] Andrea Flores MD, Boat Canvas Maker Installer CLIA: [id number] Thyroxine Free (free T4) 1.66 0.86-1.76 ng/dL P-Iron Reviewed date:10/24/2024 12:19:30 PM Interpretation:Normal Performing Lab: Notes/Report: Test performed by [email or web address] [address] , [address], [place] [address] Andrea Flores MD, Boat Canvas Maker Installer CLIA: [id number] Iron 42 37-145 ug/dL P-Lipid Panel Reviewed date:10/24/2024 12:19:30 PM Interpretation:Normal Performing Lab: Notes/Report: Test performed by [facility] [address] [place] [address] , [address], [place] [address] Andrea Flores MD, Boat Canvas Maker Installer CLIA: [id number] Cholesterol 167 <200 mg/dL Triglycerides 108 <150 [...] Interpretation:Normal Performing Lab: Notes/Report: Test performed by [facility] [address] [place], [place] [address] [place] [address] Andrea Flores MD, Boat Canvas Maker Installer CLIA: [id number] Phosphorus 4.2 2.5-4.5 mg/dL P-TSH Reviewed date:10/24/2024 12:19:30 PM Interpretation:7.02 Performing Lab: Notes/Report: Test performed by [facility] [address] [place], [place] [address] [place] [address] Andrea Flores MD, Boat Canvas Maker Installer CLIA: [id number] TSH 7.02 0.43-5.25 mU/L Urinalysis - Inhouse Reviewed date:06/22/2024 12:45:35 PM [...] Interpretation:26 Performing Lab: Notes/Report: Test performed by [facility] [address] [place] [address] , [address], [place] [address] Andrea Flores MD, Boat Canvas Maker Installer CLIA: [id number] Amylase 26 28-100 U/L P-Comprehensive Metabolic Pa luis (CMP) Reviewed date:06/24/2024 08:26:05 AM Interpretation:gluc 264, Cr 1.58, gfr 34 Performing Lab: Notes/Report: Test performed by [facility] [address] [place] [address] [place], [address], [place] [address] Andrea Flores MD, Boat Canvas Maker Installer CLIA: [id number] Sodium 140 135-145 mmol/L Potassium 4.6 3.5-5.3 [...] Interpretation:sensitive Performing Lab: Notes/Report: Test performed by [facility], [address] , [address], [place] [address] Andrea Flores MD, Boat Canvas Maker Installer CLIA: [id number] Specimen Source Urine - Void Culture, Urine [...] Interpretation:0.52 Performing Lab: Notes/Report: Test performed by [email or web address] [address] , [place] [address] Andrea Flores MD, Boat Canvas Maker Installer CLIA: [id number] Thyroxine Free (free T4) 0.52 0.86-1.76 ng/dL P-Lipase Reviewed date:06/24/2024 08:26:05 AM Interpretation:9.9 Performing Lab: Notes/Report: Test performed by [facility] [address] [place] [address] , [place] [address] Andrea Flores MD, Boat Canvas Maker Installer CLIA: [id number] Lipase 9.9 13.0-60.0 u/L P-Troponin I Reviewed date:06/24/2024 08:24:15 AM Interpretation: Performing Lab: Notes/Report: K-Ezubsuxa-U Reviewed date:06/24/2024 08:26:05 AM Interpretation:24 Performing Lab: Notes/Report: Test performed by [email or web address] [address] , [place] [address] Andrea Flores MD, Boat Canvas Maker Installer CLIA: [id number] Troponin-T 24 <6-18 ng/L Patients who are prescribed biotin may exhibit elevated troponin results. Please interpret results accordingly. P-TSH reflex to FT4 Reviewed date:06/24/2024 08:26:05 AM Interpretation:95.3 Performing Lab: Notes/Report: Test performed by [email or web address] [address] , [place] [address] Andrea Flores MD, Boat Canvas Maker Installer CLIA: [id number] TSH reflex to FT4 95.30 0.43-5.25 mU/L CBC Venipuncture (in house) Reviewed date:07/26/2024 03:18:46 PM Interpretation: Performing Lab: Notes/Report: P-Comprehensive Metabolic Pa luis (CMP) Reviewed date:07/22/2024 10:58:36 AM Interpretation:gluc 249, bun 25, Cr 1.23, gfr 46 Performing Lab: Notes/Report: Test performed by [facility] [address] [place] [address] , [address], [place] [address] Andrea Flores MD, Boat Canvas Maker Installer CLIA: [id number] Sodium 139 135-145 mmol/L Potassium 4.5 3.5-5.3 [...] Interpretation:Normal Performing Lab: Notes/Report: Test performed by [facility] [address] [place] [address] , [place] [address] Andrea Flores MD, Boat Canvas Maker Installer CLIA: [id number] Iron 65 37-145 ug/dL Transferrin 244 200-360 mg/dL Transferrin Saturation Percentage 19 15-50 % P-Reticulocyte Count Reviewed date:07/22/2024 10:58:36 AM Interpretation:2.2 Performing Lab: Notes/Report: Test performed by [facility] [address] [place] [address] , [address], [place] [address] Andrea Flores MD, Boat Canvas Maker Installer CLIA: [id number] Reticulocyte Count 2.2 0.5-2.1 % Hemoglobin/Hematocrit Reviewed date:02/25/2025 10:56:10 AM Interpretation: Performing Lab: Notes/Report: H-Troponin I Reviewed date:01/24/2025 10:24:48 AM Interpretation: Performing Lab: Notes/Report: TROP 0.56 0.00-0.034 ng/ml CRITICAL RESULT Results called and read back/verified to: live on 01/24/25 at 0710 By Nereida Matias, MECHATRONICS TECHNOLOGIST <0.012-0.034 ng/mL NORMAL 0.035 - >0.120 ng/mL [...] 37-170 ug/dL DTIBC 335 265-497 ug/dL IRONSAT 8.44702 15-55 % H-BMP Reviewed date:01/24/2025 10:24:48 AM [...] 0.0 0-0.2 K/mm3 NRBC# 0 IG# 0.04 M-Hemoglobin and Hematocrit Reviewed date:02/27/2025 04:40:27 PM Interpretation: Performing Lab: Notes/Report: HGB 9.3 12.2-16.2 g/dL HCT 30.7 37.0-47.0 % H-CBC Reviewed date:02/27/2025 04:40:28 PM Interpretation: Performing Lab: Notes/Report: WBC 7.8 4.8-10.8 K/mm3 RBC 3.24 4.20-5.40 M/mm3 Delta: 2.43 on 02/15/25 HGB 8.9 12.2-16.2 g/dL Delta: 6.5 on 02/15/25 HCT 28.1 37.0-47.0 % MCV 86.7 81-99 fl MCH 27.5 27.0-31.2 pg MCHC 31.7 31.8-35.4 g/dL RDW-SD 52.6 RDW 16.8 11.5-17.5 % PLT 309 142-424 K/mm3 MPV 9.0 7.4-10.4 fl NE% 67.3 37.0-80.0 % LY% 18.8 10-50 % MO% 6.6 1.7-9.3 % EO% 5.8 0.1-12.0 % BA% 0.6 0.1-2.0 % NRBC% 0 IG% 0.9 NE# 5.2 1.8-7.8 K/mm3 LY# 1.5 0.7-4.5 K/mm3 MO# 0.5 0.1-1.0 K/mm3 EO# 0.5 0.0-0.4 Kmm3 BA# 0.1 0-0.2 K/mm3 NRBC# 0 IG# 0.07 H-Crossmatch Reviewed date:02/27/2025 04:40:28 PM Interpretation: Performing Lab: Notes/Report: Other not ordered RBC Product Order Reason Hgb/Hct <7/21 Timeframe for Post-Transf H/H other (specify) XM UNIT NUMBER: [id number] XM COMPATIBLE: Y XM PRODUCT: Red Blood Cells XM SOURCE: [facility] XM BLOOD TYPE: O Negative XM VOLUME: 250mL XM CROSSMATCH COMPONENTS: XMNOTE Notification Notified A FLORES by Marta Mcdowell 02/15/25 165. Notified A FLORES by Marta Mcdowell 02/15/251656. XM UNIT NUMBER: [id number] XM COMPATIBLE: Y XM PRODUCT: Red Blood Cells XM SOURCE: [facility] XM BLOOD TYPE: O Negative XM VOLUME: 250mL XM CROSSMATCH COMPONENTS: XMNOTE Notification Notified A FLORES by Marta Mcdowell 02/15/251655. Notified A FLORES by Marta Mcdowell 02/15/251656. H-Type and Screen Reviewed date:02/27/2025 04:40:28 PM Interpretation: Performing Lab: Notes/Report: Other not ordered RBC Product Order Reason Hgb/Hct <7/21 Timeframe for Post-Transf H/H other (specify) BT O Negative ABS NEGATIVE H-URC Reviewed date:02/27/2025 04:40:28 PM Interpretation: Performing Lab: Notes/Report: U500.0100 TRANSFUSED PRODUCT: Red Blood Cells COUNT: 2 Reason For Referral No Information Medications Medication [...] (in the morning) Active FreeStyle Jg 3 Garita - as directed 08/19/2024 Active FreeStyle Jg [...] Active Eliquis 5 MG 1 tablet Orally Tw e a day; Duration: 90 days Active Vitamin D3 50 MCG (2000 UT) 2 tab(s) orally once a day 03/09/2019 A ctive Aspirin Adult Low Dose 81 MG 1 tab(s) orally once a day A ctive Mupirocin 2 % 1 application Early Childhood Education Coordinator ally Twice a day 02/09/2025 Active BD [...] W/U Status Risk Notes Problem Essential hypertension (58492046) Essential (primary) hypertension (I10) Active confirmed Problem Hyperkalemia (22259979) Hyperkalemia (E87.5) Active confirmed Problem Essential hypertension (82033053) Essential hypertension (I10) Active confirmed Problem Body mass index 30+ - obesity (405490660) BMI 30.0-30.9,adult (Z68.30) Active confirmed Problem Overactive urinary bladder (disorder) (733274405) OAB (overactive bladder) (N32.81) Active confirmed Problem Hypoglycemia due to type 2 diabetes mellitus (109180745432899) Type 2 diabetes mellitus with hypoglycemia without coma (E11.649) Active confirmed Problem Mixed hyperlipidemia (618802943) Mixed hyperlipidemia (E78.2) Active confirmed Problem Chronic pulmonary edema (14065014) Chronic pulmonary edema (J81.1) Active confirmed Problem Long-term current use of insulin (604729106) detention (current) use of insulin (Z79.4) Active confirmed Problem Type II diabetes mellitus without complication (123129875) Type 2 diabetes mellitus without complication (E11.9) Active confirmed Problem Acquired hypothyroidism (541421822) Acquired hypothyroidism (E03.9) Active confirmed Problem Obesity (927803143) Non morbid obesity due to excess calories (E66.09) Active confirmed Problem Atherosclerotic heart disease of [place] coronary artery without angina pectoris (248239424994857) Coronary artery disease involving [place] coronary artery of [place] heart without angina pectoris (I25.10) Active confirmed Problem Iron deficiency anemia due to chronic blood loss (610576148) Iron deficiency anemia due to chronic blood loss (D50.0) Active confirmed Problem Anemia (531601896) Anemia, unspecified type (D64.9) Active confirmed Problem Atrial fibrillation (89724542) PAF (paroxysmal atrial fibrillation) (I48.0) Active confirmed Problem Claudication (65765201) Claudication (I73.9) Active confirmed Problem Hyperlipidaemia (49555517) Hyperlipidemia, unspecified hyperlipidemia type (E78.5) Active confirmed Problem Atrial fibrillation (37730617) Atrial fibrillation with RVR (I48.91) Active confirmed Problem Recurrent falls (191492795) Frequent falls (R29.6) Active confirmed Problem Transient ischemic attack (972825385) TIA (transient ischemic attack) (G45.9) Active confirmed Problem Peripheral vascular disease (531775494) PAD (peripheral artery disease) (I73.9) Active confirmed Problem Atherosclerotic heart disease of [place] coronary artery without angina pectoris (600872869766326) Atherosclerosis of [place] coronary artery without angina pectoris, unspecified whether [place] or transplanted heart (I25.10) Active confirmed Problem Occlusion and stenosis of multiple and bilateral cerebral arteries (413882868) Bilateral carotid artery stenosis (I65.23) Active confirmed Problem Carotid artery occlusion (311844496) Stenosis of carotid artery, unspecified laterality (I65.29) Active confirmed Problem Obesity (643263097) Non morbid obesity (E66.9) Active confirmed Problem History of placement of stent for coronary artery disease (situation) (461297649) S/P coronary artery stent placement (Z95.5) Active confirmed Problem Type II diabetes mellitus without complication (910098628) Type 2 diabetes mellitus without complication, unspecified whether terminal carman insulin use (E11.9) Active confirmed Problem Hyperglycemia due to type 2 diabetes mellitus (764320592867259) Uncontrolled type 2 diabetes mellitus with hyperglycemia (E11.65) Active confirmed Problem Atherosclerosis of bilateral carotid arteries (disorder) (283359442908340) Bilateral carotid artery disease, unspecified type (I77.9) Active confirmed Problem Disorder of carotid artery (disorder) (473743987) Carotid artery disease, unspecified laterality, unspecified type (I77.9) Active confirmed Problem Diabetic renal disease (673186997) Type 2 diabetes mellitus with diabetic chronic kidney disease, unspecified CKD stage, unspecified whether terminal carman insulin use (E11.22) Active confirmed Problem Chronic kidney disease stage 3B (disorder) (449215957) Chronic kidney disease, stage 3b (N18.32) Active confirmed Problem Chronic kidney disease stage 3A (310784330) Stage 3a chronic kidney disease (N18.31) Active confirmed Problem Urinary incontinence (661368787) Urinary incontinence in female (R32) Active confirmed Vital Signs Heart Rate 81 /min 02/09/2025 Blood pressure diastolic 72 mm Hg 02/09/2025 Height 63 in 02/09/2025 Blood pressure systolic 122 mm Hg 02/09/2025 Weight 173 lbs 02/09/2025 BMI 30.64 kg/m2 02/09/2025 Encounters Encounter Location Date Provider Diagnosis [facility] [address] [place] [id number] 04/20/2024 Cosme Lentner OAB (overactive blad rocio) N32.81 [facility] [address] [place] [id number] 06/22/2024 Cosme Lentner Nausea and vomiting, unspecified vomiting type R11.2 ; Intermittent diarrhea R19.7 ; Urinary incontinence in female R32 ; Periumbilical pain R10.33 ; Type 2 diabetes mellitus without complication E11.9 and Acute UTI N39.0 [facility] [address] [place] [id number] 07/21/2024 Cosme Lentner Nausea and vomiting, unspecified vomiting type R11.2 ; Anemia, unspecified type D64.9 ; Type 2 diabetes mellitus with hypoglycemia without coma E11.649 and moth exterminator (current) use of insulin [facility]79.4 [facility] [address] [place] [address] [place] [id number] 08/31/2024 Cosme Lentner Open wound of right heel, initial encounter S91.301A [facility] [address] [place] [address] [place] [id number] 10/21/2024 Cosme Lentner Type 2 diabetes darren itus without complication E11.9 ; Essential hypertension I10 ; Stage 3a chronic kidney disease N18.31 ; Anemia, unspecified type D64.9 ; Acquired hypothyroidism E03.9 and Hyperlipidemia, unspecified hyperlipidemia type E78.5 [facility] [address] [place] [id number] 02/09/2025 Cosme Lentner Iron deficiency anem ia due to chronic blood loss D50.0 ; Gastrointestinal hemorrhage, unspecified gastrointestinal hemorrhage type K92.2 ; Open wound of left lower leg, initial encounter S81.802A ; PAF (paroxysmal atrial fibrillation) I48.0 ; PAD (peripheral artery disease) I73.9 ; Type 2 diabetes mellitus with diabetic chronic kidney disease, unspecified CKD stage, unspecified whether custodial insulin use E11.22 ; Chronic kidney disease, stage 3b N18.32 and Non morbid obesity due to excess calories E66.09 [facility] [address] [place], [place] [id number] 06/24/2024 Cosme Lentner [facility] [address] [place], [place] [id number] 06/29/2024 Cosme Lentner [facility] [address] [place], [place] [id number] 07/22/2024 Cosme Lentner [facility] [address] [place], [place] [id number] 08/04/2024 Cosme Lentner [facility] [address] [place], [place] [id number] 08/16/2024 Cosme Lentner [facility] [address] [place], [place] [id number] 08/19/2024 Cosme Lentner [facility] [address] [place] [id number] 08/19/2024 Cosme Lentner [facility] [address] [place], [place] [id number] 08/25/2024 Cosme Lentner [facility] [address] [place], [place] [id number] 09/08/2024 Cosme Lentner [facility] [address] [place], [place] [id number] 09/08/2024 Cosme Lentner Type 2 diabetes darren itus with hypoglycemia without coma E11.649 [facility] [address] [place], [place] [id number] 10/07/2024 Cosme Lentner [facility] [address] [place], [place] [id number] 10/24/2024 Cosme Lentner [facility] [address] [place], [place] [id number] 01/25/2025 Cosme Lentner [facility] [address] [place], [place] [id number] 02/15/2025 Cosme Lentner Iron deficiency anem ia due to chronic blood loss D50.0 [facility] [address] [place] [id number] 02/21/2025 Cosme Lentner Screening for osteop orosis Z13.820 [facility] [address] [facility] [address] [place] [id number] 02/25/2025 Cosme Lentner Assessments Encounter Date Diagnosis (ICD Code) Assessment [...] to chronic blood loss (ICD-10 - D50.0) 02/21/2025 Screening for osteoporosis (ICD-10 - Z13.820) 02/09/2025 Open wound of left lower leg, initial encounter (ICD-10 - S81.802A) 10/21/2024 Stage 3a chronic kidney disease (ICD-10 - N18.31) 06/22/2024 Urinary incontinence in female (ICD-10 - R32) 07/21/2024 Type 2 diabetes mellitus with hypoglycemia without coma (ICD-10 - E11.649) 07/21/2024 moth exterminator (current) use of insulin (ICD-10 - Z79.4) 06/22/2024 Periumbilical pain (ICD-10 - R10.33) 10/21/2024 Anemia, unspecified type (ICD-10 - D64.9) 02/09/2025 PAF (paroxysmal atrial fibrillation) (ICD-10 - I48.0) 02/09/2025 PAD (peripheral artery disease) (ICD-10 - I73.9) 10/21/2024 Acquired hypothyroidism (ICD-10 - E03.9) 06/22/2024 Type 2 diabetes mellitus without complication (ICD-10 - E11.9) 06/22/2024 Acute UTI (ICD-10 - N39.0) 10/21/2024 Hyperlipidemia, unspecified hyperlipidemia type (ICD-10 - E78.5) 02/09/2025 Type 2 diabetes mellitus with diabetic chronic kidney disease, unspecified CKD stage, unspecified whether custodial insulin use (ICD-10 - E11.22) 02/09/2025 Chronic kidney disease, stage 3b (ICD-10 - N18.32) 02/09/2025 Non morbid obesity due to excess calories (ICD-10 - E66.09) 02/09/2025 Other Discharge summary with available lab/diagnostic imaging results obtained and reviewed. Discharge medication list reconciled. Appropriate counseling provided. Moderate Complexity Plan Of Treatment Pending Test Test Name Order Date Bone density 02/21/2025 Cologuard 12/18/2021 Next Appt Details Provider Name:Cosme Amos ry, 03/27/2025 10:00:00 AM, [address] [facility], [address], [place], [place], [id number], Insurance Providers Payer Name Payer Address Payer Phone Subscriber Number Group Number Insured Name Patient Relationship to Insured Coverage Start Date Coverage End Date [employer] (MEDICAR E) [address] [address] [place] [address] [phone] [id number] Yesi Fernandez Self - patient is the [...]
--- OUTSIDE RECORDS SUMMARY | 2025-03-15 08:12 | XMS_ITS | Clinical Summary ---
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
[address] [place] [address], [place] [phone] from Last 3 Months or Most Recently Relevant to Health Maintenance Insurance EM[place] PICHARDO [id number] [facility] Care Teams Weatherstrip Machine Operator Relationship Specialty Start Date End Date Cosme Garcia MD [address] [facility] [place] [address] PCP - General Family Medicine 01/04/21
--- OUTSIDE RECORDS SUMMARY | 2025-03-15 08:13 | XMS_ITS | Clinical Summary ---
Author Organization Healthcare Address [address] [place] [address] Care Team Providers Care Exerciser Horse Name Role Phone Cosme Garcia MD Primary Care Provider [phone] Allergies No known active allergies Medications metFORMIN [...] Scan 1950 [facility]Y-Medicare Annual Wellness (AWV) 1949 [facility]Y-Infant/Child/Adol SDOH Screenings 1949 NRT-[id number]-10 Vaccine (#1) 1954 UKY-Obesity Intervention 1955 Diabetes: [...] this topic Medical Devices Implanted Type Area Computer Systems Security Analyst Device Identifier Shelf Expiration Date Model / Serial / Lot Stent Transcarotid System 9mm X 30mm - [id number] Implanted:Qty: 1 on 03/06/2021 by Leo Saleh MD at [facility] Inc-[id number] 03/09/2023 SR-0930-C S / / [id number] Stent Transcarotid System 8mm X 30mm - [id number] Implanted:Qty: 1 on 10/22/2021 by Leo Saleh MD at [facility] Left: Carotid [facility] [id number] 02/07/2024 SR-0830-C S / / [id number] Procedures Procedure Name Priority Date/Time Associated Diagnosis [...] Adults <6.0% Children and Adolescents <7.5% Source: [place] [employer]. Standards of medical care in diabetes,2017. Diabetes Care.2017:40 (suppl 1):S1-S135. HbA1c assay performed by an ion-exchange chromatography method that is certified traceable to the DCCT. Bob Brown MD LAB BLOOD ORDERABLES Final Re sult Performing Organization Address City/[facility]/ZIP Co de Phone Number HEALTHCARE LAB [address] [place] [address] * [place] Hepatitis C Antibody (01/25/2021 2:56 PM EDT) [facility] Hepatitis C Antibody Negative Negative 01/25/2021 5:15 PM EDT HEALTHCARE LAB Blood Venous blood specimen / Unknown Venipuncture / Unknown 01/25/2021 2:56 PM EDT 01/25/2021 3:04 PM EDT Bob Brown MD LAB BLOOD ORDERABLES Final Re sult Performing Organization Address City/[facility] Co de Phone Number HEALTHCARE LAB [address] [place] [address] from Last 3 Months or Most Recently Relevant to Health Maintenance Insurance [facility] MEDICARE Advance Directives Documents on File Type Date Recorded Patient Associate Web Developer Expl anation Advance Directives and Living Will 03/06/2021 Power of Garbage Collection Supervisor 01/25/2021 * Full Code (Latest Code Status on File) Date Activated Date Inactivated Comments 10/22/2021 10:32 AM 10/24/2021 5:12 PM Question Answer Comments Patient has decision-making capacity? Yes Care Teams Exerciser Horse Relationship Specialty Start Date End Date Cosme Garcia MD [address] [facility] [address] [place] [address] PCP - General 01/24/21
[2025-03-15] MEDS: BARIUM SULFATE(LIQUID E-Z-PAQUE);355ML BOTTLE 355 ML PO (08:25)
== END 2025-03-15 23:59 | disposition home or self-care (01) ==
LOC: RAD 08:07
PROVIDERS: PCP Family Medicine; Visit Provider Internal Medicine Gastroenterology
DX: K92.1 Melena (principal); D50.9 Iron deficiency anemia, unspecified
CPT/HCPCS: 74250

== ENCOUNTER 2025-03-23 12:22 | Outpatient (CLI) | payer MEDICARE, OTHER, SELFPAY ==
--- OUTSIDE RECORDS SUMMARY | 2025-02-20 09:30 | XMS_ITS ---
Author Organization [facility] Address [address] [facility] [address] [facility] [address] [place] [id number] Care Team Providers Care Transport Conductor Name Role Phone Cosme Garcia Primary Care Provider REASON FOR VISIT 4 month check Encounters Encounter Location Date Provider Diagnosis [facility] [address] [place] [id number] 02/20/2025 Cosme Garcia Plan Of Treatment Next Appt Details Provider Name:Cosme Amos ry, 03/27/2025 10:00:00 AM, [address], [address], [place], [id number], Progress Notes * URIAHSurendraBrandonOB: 9 (74 yo F)Acc No.[id number]:02/20/2025 Progress Notes Patient: Yesi UGALDE Provider: Damion Garcia M.D. :1950 A ge:74 Y S ex:Female Date:02/20/2025 Address:[facility] [id number] Subjective: * Chief Complaints: * 1 . 4 month check. * Medical History: Objective: * Vitals: Assessment: Plan: * Treatment: * Images: Billing Information: * Visit Code: * Procedure Codes: * Electronic signature of Carol Garcia MD on 03/23/2025 at 12:31 PM EDT Sign off status: Pending * Provider: Damion Garcia M.D. Date: 02/20/2025 Generated for [place] camp/Vamsi/eTransmitting on: 03/23/2025 12:31 PM EDT
--- OUTSIDE RECORDS SUMMARY | 2025-02-21 06:38 | XMS_ITS ---
Author Organization [facility] Address [address] [facility] 36 [facility] [address] [place] [phone] Care Team Providers Care Rotor Assembler Name Role Phone Cosme Garcia Primary Care Provider [phone] REASON FOR VISIT due dexa Encounters Encounter Location Date Provider Diagnosis [facility] [address] [place] [id number] 02/21/2025 Cosme Garcia Screening for osteoporosis Z13.820 Assessments Encounter Date Diagnosis (ICD Code) Assessment Notes Treatment Notes Treatment Clinical Notes Section Notes 02/21/2025 Screening for osteoporosis (ICD-10 - Z13.820) Plan Of Treatment Pending Test Test Name Order Date Bone density 02/21/2025 Next Appt Details Provider Name:Cosme Amos ry, 03/27/2025 10:00:00 AM, [address] [facility] 36 [facility], [address], [place], [phone], Progress Notes * Alec FERNANDEZOB: 9 (74 yo F)Acc No.[id number]:02/21/2025 Patient: Yesi UGALDE :1950 A ge:74 Y S ex:Female Address:[facility] [place], [address] Subjective: * Chief Complaints: * D ue dexa * Medical History: * Surgical History: * Hospitalization/Major Diagno stic Procedure: * Medications: Objective: * Vitals: * Physical Examination: Assessment: * Assessment: 1. S creening for osteoporosis - Z13.820 (Primary) Plan: * Treatment: * Procedure Codes: * true * Date: Generated for Printi ng/Faxing/eTransmitting on: 0 03/23/2025 12:30 PM EDT
--- OUTSIDE RECORDS SUMMARY | 2025-03-23 12:31 | XMS_ITS | Clinical Summary ---
Author Organization Healthcare Address [address] [place] [address] Care Team Providers Care Poultry Picking Machine Tender Name Role Phone Cosme Garcia MD Primary Care Provider [phone] Allergies No known active allergies Medications metFORMIN [...] Saleh) S/P left TCAR on 10/22/2021 (Dr. Salhe) Continue home aspirin, plavix, and atorvastatin. Postop [...] lisinopril. 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 Inc-[id number] 03/09/2023 SR-0930-C S / / [id number] Stent Transcarotid System 8mm X 30mm - [id number] Implanted:Qty: 1 on 10/22/2021 by Leo Saleh MD at [facility] Left: Carotid [facility] [employer] Inc-[id number] 02/07/2024 SR-0830-C S / / [id number] Procedures Procedure Name Priority Date/Time Associated Diagnosis [...] Adults <6.0% Children and Adolescents <7.5% Source: [place] Diabetes Association. Standards of medical care in diabetes,2017. Diabetes Care.2017:40 (suppl 1):S1-S135. HbA1c assay performed by an ion-exchange chromatography method that is certified traceable to the DCCT. Bob Brown MD LAB BLOOD ORDERABLES Final Re sult Performing Organization Address City/[facility]/ZIP Co de Phone Number HEALTHCARE LAB [address] [place] [address] * [place] Hepatitis C Antibody (01/25/2021 2:56 PM EDT) [facility] Hepatitis C Antibody Negative Negative 01/25/2021 5:15 PM EDT HEALTHCARE LAB Blood Venous blood specimen / Unknown Venipuncture / Unknown 01/25/2021 2:56 PM EDT 01/25/2021 3:04 PM EDT Bob Brown MD LAB BLOOD ORDERABLES Final Re sult Performing Organization Address City/[facility] Co de Phone Number HEALTHCARE LAB [address] [place] [address] from Last 3 Months or Most Recently Relevant to Health Maintenance Insurance [facility] MEDICARE Advance Directives Documents on File Type Date Recorded 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 Yes Care Teams Poultry Picking Machine Tender Relationship Specialty Start Date End Date Cosme Garcia MD [address] [place] [address] PCP - General 01/24/21
--- OUTSIDE RECORDS SUMMARY | 2025-03-23 12:31 | XMS_ITS | Clinical Summary ---
Author Organization [facility] Address [address] [place] [address] Care Team Providers Care Baggage Agent Name Role Phone Cosme Garcia MD Primary Care Provider [phone] Allergies No known active allergies Medications CYANOCOBALAMIN [...] controlling her portion sizes better -Counseled that fdc hyperglycemia can cause worsening neuropathy, kidney damage, [...] lisinopril. 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 Blood 06/27/2022 10:0 9 AM EST us Bassam Krishnamurthy MD POINT OF CARE TEST ORDERABL ES Final Result [facility]
[address] [place] [address], [place] [phone] from Last 3 Months or Most Recently Relevant to Health Maintenance Insurance [place] [id number] [facility] MEDICARE ADVANTAGE Care Teams Baggage Agent Relationship Specialty Start Date End Date Cosme Garcia MD [address] [facility] [address] [place] [address] PCP - General Family Medicine 01/04/21
[2025-03-23 12:52] LABS: Hematocrit 35.6 % (37.0-47.0); Hemoglobin 11.2 g/dL (12.2-16.2); Immature Granulocytes % 1.1 %; Mean Corpuscular HGB Conc 31.5 g/dL (31.8-35.4); Mean Corpuscular Hemoglobin 29.4 pg (27.0-31.2); Mean Corpuscular Volume 93.4 fl (81-99); Nucleated Red Blood Cells % 0 %; Platelet Count 243 K/mm3 (142-424); Red Blood Count 3.81 M/mm3 (4.20-5.40); Red Cell Distribution Width-SD 64.3 fL; White Blood Count 7.3 K/mm3 (4.8-10.8)
== END 2025-03-23 23:59 | disposition home or self-care (01) ==
LOC: LAB 12:23
PROVIDERS: PCP Family Medicine; Visit Provider Internal Medicine Medical Oncology
DX: D64.9 Anemia, unspecified (principal)
CPT/HCPCS: 36415; 85025

== ENCOUNTER 2025-04-12 10:57 | Outpatient (CLI) | payer MEDICARE, OTHER, SELFPAY ==
--- OUTSIDE RECORDS SUMMARY | 2025-02-09 07:00 | XMS_ITS ---
Author Organization [facility] Address [address] [facility] [address] [place] [phone] Care Team Providers Care Reforestation Worker Name Role Phone Cosme Garcia Primary Care Provider [phone] Allergies No Known Allergies Results Component Value [...] 394 100 - 400 REASON FOR VISIT [facility] d/c f/u Medications Medication SIG (Take, Route, [...] UNITS) Active Mupirocin 2 % 1 application Conveyor Line Bakery Worker ally Twice a day 02/09/2025 Active BD [...] DAILY; Duration: 30 Active FreeStyle Jg 3 [place] - as directed 08/19/2024 Active FreeStyle Jg 3 Plus Sensor - Apply one sensor every 14 days; Duration: 28 days 08/16/2024 Active Problems Problem Type SNOMED Code ICD Code Onset Dates Problem Status W/U Status Risk Notes Problem Iron deficiency anemia due to chronic blood loss (374418432) Iron deficiency anemia due to chronic blood loss (D50.0) Active confirmed Problem Diabetic renal disease (098583453) Type 2 diabetes mellitus with diabetic chronic kidney disease, unspecified CKD stage, unspecified whether shelter insulin use (E11.22) Active confirmed Problem Chronic kidney disease stage 3B (disorder) (571938279) Chronic kidney disease, stage 3b (N18.32) Active confirmed Vital Signs Weight 173 lbs 02/09/2025 Blood pressure systolic 122 mm Hg 02/10/20 25 Blood pressure diastolic 72 mm Hg 025 Heart Rate 81 /min 02/09/2025 Height 63 in 02/09/2025 BMI 30.64 kg/m2 02/09/2025 Encounters Encounter Location Date Provider Diagnosis [facility] [address] [place], [place] [phone] 02/09/2025 Cosme Garcia Iron deficiency anem ia due to chronic blood loss D50.0 ; Gastrointestinal hemorrhage, unspecified gastrointestinal hemorrhage type K92.2 ; Open wound of left lower leg, initial encounter S81.802A ; PAF (paroxysmal atrial fibrillation) I48.0 ; PAD (peripheral artery disease) I73.9 ; Type 2 diabetes mellitus with diabetic chronic kidney disease, unspecified CKD stage, unspecified whether shelter insulin use E11.22 ; Chronic kidney disease, [...] Details Follow Up: 4 to 6 Weeks, [place] son: Provider Name:Cosme Amos ry, 07/25/2025 09:45:00 AM, [address], [address] , [place], [place], [phone], Progress Notes * Alec FERNANDEZOB: 9 (74 yo F)Acc No.[id number]:02/09/2025 Patient: Yesi UGALDE Provider: Damion Garcia M.D. :1950 A ge:74 Y S ex:Female Date:02/09/2025 Address:[address] [place] [address] [place], [id number] Subjective: * Chief Complaints: * 1 . [facility] d/c f/u. * HPI: H PI: Patient is here today for a Transition of Care Visit. Discharge from the following Facility: [facility] with diagnosis of Iron Deficiency [...] 14 days , Taking FreeStyle Jg 3 [place] - Device as directed , Taking Jardiance [...] of left lower leg, initial encounter - S84.213K 4 . P AF (paroxysmal atrial fibrillation) [...] G 2211 Complex e/[place], [address] [facility] 14 DAY DISCH, 1111F [facility] MED/CURENT MED MERGE, [address]35[address] CAPILLARY BLOOD DRAW, 47259 CBC WITH AUTO DIFF, 1036F TOBACCO NON-USER, G8783 BP SCR PRFRM RCMDD DEFIND SCR INTVL, G8752 MOST RECENT SYSTOLIC BP < 140MM HG, G8754 MOST RECENT DIASTOLIC BP < 90MM HG * Follow Up: 4 to 6 Weeks * Images: Billing Information: * Visit Code: 09772 Office Visit, Est Pt., Level 4. * Procedure Codes: G2211 Complex e/[place]. [address] [facility] 14 DAY DISCH. 1111F [facility] MED/CURENT MED MERGE. 76894 CAPILLARY BLOOD DRAW. 96633 CBC WITH AUTO DIFF. 1036F TOBACCO NON-USER. G8783 BP SCR PRFRM RCMDD DEFIND SCR INTVL. G8752 MOST RECENT SYSTOLIC BP < 140MM HG. G8754 MOST RECENT DIASTOLIC BP < 90MM HG. * Electronic signature of Carol Garcia MD on 04/12/2025 at 11:17 AM EDT Sign off status: Pending * Provider: Damion Garcia M.D. Date: 0 02/09/2025 Generated for Alexander camp/Vamsi/Jakobitting on: 0 04/12/2025 11:17 AM EDT History and Physical Notes * HPI (History of Present Illness) Category Sub-Category Detail Notes Category Not es HPI Patient is here today for a [facility] sition of Care Visit. Discharge from the following Facility: [facility] with diagnosis of Iron Deficiency [...]
--- OUTSIDE RECORDS SUMMARY | 2025-02-15 07:05 | XMS_ITS ---
Author Organization [facility] Address [address] [facility] 36 [facility] [address] [place] [phone] Care Team Providers Care Canal Equipment Maintenance Supervisor Name Role Phone Cosme Garcia Primary [...] Encounter Location Date Provider Diagnosis [facility] [address] [place] [id number] 02/15/2025 Cosme Garcia Iron deficiency anem ia [...] Next Appt Details Provider Name:Cosme Amos ry, 07/25/2025 09:45:00 AM, [address] [facility], [address], [place], [phone], Progress Notes * Alec FERNANDEZOB: 9 (74 yo F)Acc No.[id number]:02/15/2025 Patient: Surendra UGALDEannie :1950 A ge:74 Y S ex:Female Address:[facility] [place], [address] * Refills Start Transfuse 2 Units PRBC [...] Date: Generated for Alexander camp/Vamsi/Josemanuelsmitting on: 0 04/12/2025 11:15 AM EDT
--- OUTSIDE RECORDS SUMMARY | 2025-02-20 09:30 | XMS_ITS ---
Author Organization [facility] Address [facility] [facility] [address] [place] [phone] Care Team Providers Care Glass Tinter Name Role Phone Cosme Garcia Primary Care Provider [phone] REASON FOR VISIT 4 month check Encounters Encounter Location Date Provider Diagnosis [facility] [address] [place] [id number] 02/20/2025 Cosme Garcia Plan Of Treatment Next Appt Details Provider Name:Cosme Amos ry, 07/25/2025 09:45:00 AM, [address], [address], [place], [phone], Progress Notes * URIAHSurendraBrandonOB: 9 (74 yo F)Acc No.[id number]:02/20/2025 Progress Notes Patient: Yesi UGALDE Provider: Damion Garcia M.D. :1950 A ge:74 Y S ex:Female Date:02/20/2025 Address:[facility] [id number] Subjective: * Chief Complaints: * 1 . 4 month check. * Medical History: Objective: * Vitals: Assessment: Plan: * Treatment: * Images: Billing Information: * Visit Code: * Procedure Codes: * Electronic signature of Carol Garcia MD on 04/12/2025 at 11:17 AM EDT Sign off status: Pending * Provider: Damion Garcia M.D. Date: 0 02/20/2025 Generated for [place] camp/Vamsi/eTransmitting on: 0 04/12/2025 11:17 AM EDT
--- OUTSIDE RECORDS SUMMARY | 2025-02-21 06:38 | XMS_ITS ---
Author Organization [facility] Address [address] [facility] 36 [facility] [address] [place] [id number] Care Team Providers Care Charter Coordinator Name Role Phone Cosme Garcia Primary Care Provider REASON FOR VISIT due dexa Encounters Encounter Location Date Provider Diagnosis [facility] [address] [place] [id number] 02/21/2025 Cosme Garcia Screening for osteoporosis Z13.820 Assessments Encounter Date Diagnosis (ICD Code) Assessment Notes Treatment Notes Treatment Clinical Notes Section Notes 02/21/2025 Screening for osteoporosis (ICD-10 - Z13.820) Plan Of Treatment Pending Test Test Name Order Date Bone density 02/21/2025 Next Appt Details Provider Name:Cosme Amos ry, 07/25/2025 09:45:00 AM, [address] [facility] 36 [facility], [address], [place], [id number], Progress Notes * Alec FERNANDEZOB: 9 (74 yo F)Acc No.[id number]:02/21/2025 Patient: Yesi UGALDE :1950 A ge:74 Y S ex:Female Address:[facility] [place], [address] Subjective: * Chief Complaints: * D ue dexa * Medical History: * Surgical History: * Hospitalization/Major Diagno stic Procedure: * Medications: Objective: * Vitals: * Physical Examination: Assessment: * Assessment: 1. S creening for osteoporosis - Z13.820 (Primary) Plan: * Treatment: * Procedure Codes: * true * Date: Generated for Printi ng/Faxing/eTransmitting on: 0 04/12/2025 11:16 AM EDT
--- OUTSIDE RECORDS SUMMARY | 2025-03-27 06:15 | XMS_ITS ---
Author Organization [facility] Address [address] [place] [id number] Care Team Providers Care Divider Operator Name Role Phone Cosme Garcia Primary [...] Duration: 90 days Active FreeStyle Jg 3 [place] - as directed 08/19/2024 Active FreeStyle Jg [...] Provider Diagnosis [facility] [address] [facility] [address], [place] [id number] 03/27/2025 Cosme Garcia Type 2 diabetes darren [...] Amos , 07/25/2025 09:45:00 AM, [address] [facility] 36 [facility], [address] , [place], [place], [id number], Progress Notes * Swathi FERNANDEZJenniferOB: 9 (74 yo F)Acc No.[id number]:03/27/2025 Patient: Yesi UGALDE Provider: Damion Garcia M.D. :1950 A ge:74 Y S ex:Female Date:03/27/2025 Address:[address] [place] [address] [place], [id number] Subjective: * Chief Complaints: * 1 . [...] 14 days , Taking FreeStyle Jg 3 [place] - Device as directed , Taking Jardiance [...] G 2211 Complex e/[place], [address] CAPILLARY BLOOD DRAW, 09145 GLUCOSE TEST, 51493 GLYCATED HEMOGLOBIN TEST, Modifiers: QW , 3051F HG A1C>EQUAL 7.0%<8.0%, 1036F TOBACCO NON-USER, G8783 BP SCR PRFRM RCMDD DEFIND SCR INTVL, G8752 MOST RECENT SYSTOLIC BP < 140MM HG, G8754 MOST RECENT DIASTOLIC BP < 90MM HG * Follow Up: 4 Months * Images: Billing Information: * Visit Code: 20057 Office Visit, Est Pt., Level 3. * Procedure Codes: G2211 Complex e/[place]. [address] CAPILLARY BLOOD DRAW. 92372 GLUCOSE TEST. 19361 GLYCATED HEMOGLOBIN TEST. Modifiers: QW 3051F HG [...] 03/27/2025 Generated for [facility] camp/Vamsi/Yung on: 0 04/12/2025 11:17 AM EDT History [...]
--- OUTSIDE RECORDS SUMMARY | 2025-04-12 11:17 | XMS_ITS | Clinical Summary ---
Author Organization Healthcare Address [address] [place] [address] Care Team Providers Care Meat Carver Name Role Phone Cosme Garcia MD Primary Care Provider [phone] Allergies No known active allergies Medications metFORMIN [...] Wellness (AWV) 1950 UKY-/Child/Adol SDOH Screenings 1949 VSJ-[id number]-10 Vaccine (#1) 1954 UKY- SDOH Screenings 1967 UKY-Adult SDOH Screenings 1967 UKY-DTaP,Tdap,and Td Vaccine s (1 - Tdap) 1968 CT Colonography 1994 Colonoscopy 1994 FIT-DNA 1994 FIT 1994 FOBT 1994 Sigmoidoscopy 1994 UKY-Colorectal Cancer Screening 1994 UKY-Zoster Vaccines (1 of 2) 1999 UKY-Depression Screening 06/10/2022 06/10/2021 UKY-RSV Vaccine: 60+ Years o r (1 - 1-dose 75+ series) 2024 UKY-Influenza Vaccine (#1) 2025 UKY-Diabetes: Hemoglobin A1C Discontinued 01/25/2021 UKY-Hepatitis C Screening Completed 01/25/2021 UKY-Pneumococcal Vaccine: [...] this topic Medical Devices Implanted Type Area Public Relations Writer Device Identifier Shelf Expiration Date Model / Serial / Lot Stent Transcarotid System 9mm X 30mm - [id number] Implanted:Qty: 1 on 03/06/2021 by Leo Saleh MD at [facility]-[id number] 03/09/2023 SR-0930-C S / / [id number] Stent Transcarotid System 8mm X 30mm - [id number] Implanted:Qty: 1 on 10/22/2021 by Leo Saleh MD at [facility] Left: [facility]id [facility]-[id number] 02/07/2024 SR-0830-C S / / [id number] Procedures Procedure Name Priority Date/Time Associated Diagnosis [...] Adults <6.0% Children and Adolescents <7.5% Source: [place] [employer]. Standards of medical care in diabetes,2017. Diabetes Care.2017:40 (suppl 1):S1-S135. HbA1c assay performed by an ion-exchange chromatography method that is certified traceable to the DCCT. Bob Brown MD LAB BLOOD ORDERABLES Final Re sult Performing Organization Address City/[facility] Co de Phone Number HEALTHCARE LAB [address] [place] [address] * [place] Hepatitis C Antibody (01/25/2021 2:56 PM EDT) [facility] Signature Hepatitis C Antibody Negative Negative 01/25/2021 5:15 PM EDT HEALTHCARE LAB Blood Venous blood specimen / Unknown Venipuncture / Unknown 01/25/2021 2:56 PM EDT 01/25/2021 3:04 PM EDT Bob Brown MD LAB BLOOD ORDERABLES Final Re sult Performing Organization Address [facility] de Phone Number HEALTHCARE LAB [address] [place] [address] from Last 3 Months or Most Recently Relevant to Health Maintenance Insurance [facility] MEDICARE Advance Directives Documents on File Type Date Recorded 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 Yes Care Teams Meat Carver Relationship Specialty Start Date End Date Cosme Garcia MD [address] [facility] [address] [place] [address] PCP - General 01/24/21
--- OUTSIDE RECORDS SUMMARY | 2025-04-12 11:17 | XMS_ITS | Clinical Summary ---
Author Organization [facility] Address [address] [place] [address] Care Team Providers Care Metal Flooring Installer Name Role Phone Cosme Garcia MD Primary Care Provider [phone] Allergies No known active allergies Medications CYANOCOBALAMIN [...] controlling her portion sizes better -Counseled that shelter hyperglycemia can cause worsening neuropathy, kidney damage, [...] 06/27/2022 9:41 AM EST Plan of Treatment Upcoming Encounters Date Type Department Care Team (Late st Contact Info) Description 05/29/2025 2:[address]T Office [address] [facility] [address] [place] [address] Howard Burgos DO [address] [place] [address] Health Maintenance Due Date Last Done Comments [...] 10:09 AM EST) Hemoglobin A1C 10.6 % [facility] Lot Number [id number] [facility] Expiration Date 04-23-24 [facility] Blood 06/27/2022 10:0 9 AM EST Bassam Krishnamurthy MD POINT OF CARE TEST ORDERABL ES Final Result [facility]
[address] [place] [id number], from Last 3 Months or Most Recently Relevant to Health Maintenance Insurance [employer] MEDICARE ADVANTAGE PPO Care Teams Metal Flooring Installer Relationship Specialty Start Date End Date Cosme Garcia MD [address] [facility] [address] [place] [address] PCP - General Family Medicine 01/04/21
--- OUTSIDE RECORDS SUMMARY | 2025-04-12 11:17 | XMS_ITS | Patient Health Record ---
[facility] [address] [facility] [address] [place] Rosa [phone] Care Team Providers Care Threader Name Role Phone Cosme Garcia Primary Care Provider [phone] Allergies No Known Allergies Results Component Value Reference Range Notes Urinalysis - Inhouse Reviewed date:06/22/2024 12:45:35 PM [...] Interpretation:26 Performing Lab: Notes/Report: Test performed by [facility] [facility] , [address], [place] [address] Andrea Flores MD, Rat Farmer CLIA: [id number] Amylase 26 28-100 U/L P-Comprehensive Metabolic Pa luis (CMP) Reviewed date:06/24/2024 08:26:05 AM Interpretation:gluc 264, Cr 1.58, gfr 34 Performing Lab: Notes/Report: Test performed by [facility] [employer] [address] [place] [address] , [address], [place] [address] Andrea Flores MD, Rat Farmer CLIA: [id number] Sodium 140 135-145 mmol/L Potassium 4.6 3.5-5.3 [...] Interpretation:sensitive Performing Lab: Notes/Report: Test performed by [facility] [address] [place] [address] , [place] [address] Andrea Flores MD, Rat Farmer CLIA: [id number] Specimen Source Urine - Void Culture, Urine [...] Interpretation:0.52 Performing Lab: Notes/Report: Test performed by [facility] [address] [place] [address] , [place] [address] Andrea Flores MD, Rat Farmer CLIA: [id number] Thyroxine Free (free T4) 0.52 0.86-1.76 ng/dL P-Lipase Reviewed date:06/24/2024 08:26:05 AM Interpretation:9.9 Performing Lab: Notes/Report: Test performed by [facility] [address] [place] [address] , [place] [id number] Andrea Flores MD, Rat Farmer CLIA: [id number] Lipase 9.9 13.0-60.0 u/L P-Troponin I Reviewed date:06/24/2024 08:24:15 AM Interpretation: Performing Lab: Notes/Report: J-Okfgzraq-H Reviewed date:06/24/2024 08:26:05 AM Interpretation:24 Performing Lab: Notes/Report: Test performed by [facility] [address] , [place] [address] Andrea Flores MD, Rat Farmer CLIA: [id number] Troponin-T 24 <6-18 ng/L Patients who are prescribed biotin may exhibit elevated troponin results. Please interpret results accordingly. P-TSH reflex to FT4 Reviewed date:06/24/2024 08:26:05 AM Interpretation:95.3 Performing Lab: Notes/Report: Test performed by [facility] [address] [place] [address] , [place] [address] Andrea Flores MD, Rat Farmer CLIA: [id number] TSH reflex to FT4 95.30 0.43-5.25 mU/L Glucose (In-House) Reviewed date:10/24/2024 12:19:30 PM Interpretation:140 [...] 47 Performing Lab: Notes/Report: Test performed by [facility] [address] [place] [address] , [address], [place] [address] Andrea Flores MD, Rat Farmer CLIA: [id number] Sodium 144 135-145 mmol/L Potassium 4.4 3.5-5.3 [...] Interpretation:Normal Performing Lab: Notes/Report: Test performed by [facility] [address] [place] [address] , [place] [address] Andrea Flores MD, Rat Farmer CLIA: [id number] Thyroxine Free (free T4) 1.66 0.86-1.76 ng/dL P-Lipid Panel Reviewed date:10/24/2024 12:19:30 PM Interpretation:Normal Performing Lab: Notes/Report: Test performed by [facility] [address] [place] [address] , [place] [address] Andrea Flores MD, Rat Farmer CLIA: [id number] Cholesterol 167 <200 mg/dL Triglycerides 108 <150 [...] Interpretation:Normal Performing Lab: Notes/Report: Test performed by [facility] [address] [place] [address] , [place] [address] Andrea Flores MD, Rat Farmer CLIA: [id number] Phosphorus 4.2 2.5-4.5 mg/dL P-TSH Reviewed date:10/24/2024 12:19:30 PM Interpretation:7.02 Performing Lab: Notes/Report: Test performed by [facility] [address] [place], [place] [address] [place] , [place] [address] Andrea Flores MD, Rat Farmer CLIA: [id number] TSH 7.02 0.43-5.25 mU/L P-Microalbumin/Creatinine, R andom Urine Sample Reviewed date:10/24/2024 12:19:30 PM Interpretation:Album/Creat 65 Performing Lab: Notes/Report: Test performed by [facility] [address] , [address], [place] [address] Andrea Flores MD, Rat Farmer CLIA: [id number] Albumin/Creatinine Ratio, Urine 65 0-30 ug/mg Microalbumin, Urine, Random 3.5 Creatinine, Urine 54.1 Type and Cross 2 units PRBC Reviewed date:02/16/2025 09:46:08 AM Interpretation: Performing Lab: Notes/Report: Glycohemoglobin A1c (in hous e) Reviewed date:03/27/2025 12:21:30 PM Interpretation:7.4% Performing Lab: Notes/Report: 7.4% glycohemoglobin 7.4% 5 - 6.5 % Glucose (In-House) Reviewed date:03/27/2025 12:21:37 PM Interpretation:137 Performing Lab: Notes/Report: 137 blood glucose 137 74 - 106 mg/dL P-Iron Reviewed date:10/24/2024 12:19:30 PM Interpretation:Normal Performing Lab: Notes/Report: Test performed by [facility] [address] , [address], [place] [address] Andrea Flores MD, Rat Farmer CLIA: [id number] Iron 42 37-145 ug/dL P-Reticulocyte Count Reviewed date:07/22/2024 10:58:36 AM Interpretation:2.2 Performing Lab: Notes/Report: Test performed by [facility] [address] , [address], [place] [address] Andrea Flores MD, Rat Farmer CLIA: [id number] Reticulocyte Count 2.2 0.5-2.1 % P-Iron with Transferrin Satu ration Reviewed date:07/22/2024 10:58:35 AM Interpretation:Normal Performing Lab: Notes/Report: Test performed by [facility] [address] , [address], [place] [address] Andrea Flores MD, Rat Farmer CLIA: [id number] Iron 65 37-145 ug/dL Transferrin 244 200-360 mg/dL Transferrin Saturation Percentage 19 15-50 % P-Comprehensive Metabolic Pa luis (CMP) Reviewed date:07/22/2024 10:58:36 AM Interpretation:gluc 249, bun 25, Cr 1.23, gfr 46 Performing Lab: Notes/Report: Test performed by [facility], [address] , [address], [place] [address] Andrea Flores MD, Rat Farmer CLIA: [id number] Sodium 139 135-145 mmol/L Potassium 4.5 3.5-5.3 [...] 1.020 Ketone neg Bili neg Gluc 2+ M-Hemoglobin and Hematocrit Reviewed date:02/27/2025 04:40:27 PM Interpretation: Performing Lab: Notes/Report: HGB 9.3 12.2-16.2 g/dL HCT 30.7 37.0-47.0 % H-CBC Reviewed date:02/27/2025 04:40:28 PM Interpretation: Performing Lab: Notes/Report: WBC 7.8 4.8-10.8 K/mm3 RBC 3.24 4.20-5.40 M/mm3 Delta: 2.43 on 02/15/25-1221 HGB 8.9 12.2-16.2 g/dL Delta: 6.5 on 02/15/25-1221 HCT 28.1 37.0-47.0 % MCV 86.7 81-99 [...] Post-Transf H/H other (specify) XM UNIT NUMBER: [id number] XM COMPATIBLE: Y XM PRODUCT: Red Blood Cells XM SOURCE: [facility] XM BLOOD TYPE: O Negative XM VOLUME: 250mL XM CROSSMATCH COMPONENTS: XMNOTE Notification Notified A FLORES by Marta Mcdowell 02/15/251655. Notified A FLORES by Marta Mcdowell 02/15/251656. XM UNIT NUMBER: [id number] XM COMPATIBLE: Y XM PRODUCT: Red Blood Cells XM SOURCE: [facility] XM BLOOD TYPE: O Negative XM VOLUME: [...] TRANSFUSED PRODUCT: Red Blood Cells COUNT: 2 H-Glycohemoglobin A1C Reviewed date:07/15/2024 10:22:34 AM Interpretation:8.2 Performing Lab: Notes/Report: HGBA1C 8.2 4.0-6.0 % < 6% Non-Diabetic Level < 7% Controlled Diabetic Level > 8% Poorly Controlled Diabetic Level H-TSH Reviewed date:07/15/2024 10:22:34 AM Interpretation:79.3 Performing Lab: Notes/Report: TSH 79.30 0.465-4.68 uIU/mL CBC Fingerstick (in house) Reviewed date:02/09/2025 03:06:35 [...] RESULT Results called and read back/verified [facility] 01[facility]24[facility]25 at 0710 By Nereida Matias, CARGO AND CONTAINER INSPECTOR <0.012-0.034 ng/mL NORMAL 0.035 - >0.120 ng/mL [...] 37-170 ug/dL DTIBC 335 265-497 ug/dL IRONSAT 8.12284 15-55 % H-BMP Reviewed date:01/24/2025 10:24:48 AM [...] 1.2 0.0-0.4 K/mm3 BA# 0.1 0-0.2 K/mm3 Hemoglobin/Hematocrit Reviewed date:02/25/2025 10:56:10 AM Interpretation: Performing Lab: Notes/Report: Reason For Referral No Information Medications Medication SIG (Take, Route, Frequency, Duration) Notes Start Date End Date Status Accu-Chek Amanda Plus w/Device as directed 12/04/2023 Active FreeStyle Jg 3 Plus Sensor - as directed 07/21/2024 Active NovoLOG FlexPen ReliOn 100 UNIT/ML USE PER SLIDING SCALE BEFORE MEAL UNDER THE SKIN DIRECTED (MAX DAILY DOSE IS 75 UNITS); Duration: 20 Active Ondansetron 4 MG 1 tablet on the tong ue and allow to dissolve Orally three times a day as needed Active BD Swab Single Use Regular - 1 swab(s) fingerstick test 2 times a day; Duration: 90 days 12/19/2015 Active BD PEN NEEDLE 29G X3/16 (AUTOSHIELD) 1 SUBCUTANEOUSLY QID; Duration: 90 DAYS 03/19/2021 Active Pantoprazole Sodium 40 MG 1 tablet Orall y Once a day; Duration: 30 days Active BD Pen Needle Short U/F 31 GUAGE X 5/16 INCH 1 PEN NEEDLE ONCE A DAY; Duration: 90 DAYS 03/08/2020 Active Famotidine 20 MG 1 tablet at bedtime as needed Orally twice a day; Duration: 30 days Active Albuterol Sulfate HFA 108 (90 Base) MCG/ACT 1 puff as needed Inhalation every 4 hrs, prn 11/18/2023 Active Levothyroxine Sodium 100 MCG 1 tablet in the morning on an empty stomach Orally Once a day; Duration: 30 days Active FreeStyle Jg 3 Plus Sensor - Apply one sensor every 14 days; Duration: 28 days 08/16/2024 Active Lantus SoloStar 100 UNIT/ML 40 TO 50 UNITS Subcutaneous twice a day; Duration: 30 days Active Jardiance 25 MG 1 tablet in the morn ing Orally Once a day; Duration: 90 days Active Aspirin Adult Low Dose 81 MG 1 tab(s) orally once a day A ctive Vitamin D3 50 MCG (2000 UT) 2 tab(s) orally once a day 03/09/2019 A ctive FreeStyle Jg 3 [place] - as directed 08/19/2024 Active metFORMIN HCl 1000 MG 1 tab(s) orally 2 times a day; Duration: 90 days Active Eliquis 5 MG 1 tablet Orally Twic e a day; Duration: 90 days Active Accu-Chek Amanda Plus - 1 strip(s) finger stick 2 times a day or as directed; Duration: 90 days Active Lisinopril 10 MG 1 tab(s) orally once a day Active Metoprolol Tartrate 25 MG 1/2 tablet Ora lly Twice a day Active Ferrous Sulfate 325 (65 Fe) MG 1 tablet Orally twice a day; Duration: 30 days 03/31/2025 Active Atorvastatin Calcium 80 MG 1 tab(s) oral ly once a day (at bedtime); Duration: 90 days Active oxyBUTYnin Chloride ER 5 MG 1 tablet Orally Once a day; Duration: 90 days Active Vitamin B-12 1000 MCG 1 tab(s) [...] W/U Status Risk Notes Problem Essential hypertension (94798658) Essential (primary) hypertension (I10) Active confirmed Problem Hyperkalemia (38573669) Hyperkalemia (E87.5) Active confirmed Problem Essential hypertension (33220600) Essential hypertension (I10) Active confirmed Problem Body mass index 30+ - obesity (481468960) BMI 30.0-30.9,adult (Z68.30) Active confirmed Problem Overactive urinary bladder (disorder) (109396648) OAB (overactive bladder) (N32.81) Active confirmed Problem Hypoglycemia due to type 2 diabetes mellitus (785646214257853) Type 2 diabetes mellitus with hypoglycemia without coma (E11.649) Active confirmed Problem Mixed hyperlipidemia (618134872) Mixed hyperlipidemia (E78.2) Active confirmed Problem Chronic pulmonary edema (52348736) Chronic pulmonary edema (J81.1) Active confirmed Problem Long-term current use of insulin (827144348) 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.4) Active confirmed Problem Type II diabetes mellitus without complication (207827522) Type 2 diabetes mellitus without complication (E11.9) Active confirmed Problem Acquired hypothyroidism (242555812) Acquired hypothyroidism (E03.9) Active confirmed Problem Obesity (441432788) Non morbid obesity due to excess calories (E66.09) Active confirmed Problem Atherosclerotic heart disease of [place] coronary artery without angina pectoris (778533210236935) Coronary artery disease involving [place] coronary artery of [place] heart without angina pectoris (I25.10) Active confirmed Problem Iron deficiency anemia due to chronic blood loss (051847230) Iron deficiency anemia due to chronic blood loss (D50.0) Active confirmed Problem Anemia (837838979) Anemia, unspecified type (D64.9) Active confirmed Problem Atrial fibrillation (27851188) PAF (paroxysmal atrial fibrillation) (I48.0) Active confirmed Problem Claudication (62981802) Claudication (I73.9) Active confirmed Problem Hyperlipidaemia (83013232) Hyperlipidemia, unspecified hyperlipidemia type (E78.5) Active confirmed Problem Atrial fibrillation (93342529) Atrial fibrillation with RVR (I48.91) Active confirmed Problem Recurrent falls (571992073) Frequent falls (R29.6) Active confirmed Problem Transient ischemic attack (068965044) TIA (transient ischemic attack) (G45.9) Active confirmed Problem Peripheral vascular disease (458424622) PAD (peripheral artery disease) (I73.9) Active confirmed Problem Atherosclerotic heart disease of [place] coronary artery without angina pectoris (608150182096460) Atherosclerosis of [place] coronary artery without angina pectoris, unspecified whether [place] or transplanted heart (I25.10) Active confirmed Problem Occlusion and stenosis of multiple and bilateral cerebral arteries (994332712) Bilateral carotid artery stenosis (I65.23) Active confirmed Problem Carotid artery occlusion (608921665) Stenosis of carotid artery, unspecified laterality (I65.29) Active confirmed Problem Obesity (007546218) Non morbid obesity (E66.9) Active confirmed Problem History of placement of stent for coronary artery disease (situation) (202997311) S/P coronary artery stent placement (Z95.5) Active confirmed Problem Type II diabetes mellitus without complication (118454151) Type 2 diabetes mellitus without complication, unspecified whether intermediate insulin use (E11.9) Active confirmed Problem Hyperglycemia due to type 2 diabetes mellitus (078943862957260) Uncontrolled type 2 diabetes mellitus with hyperglycemia (E11.65) Active confirmed Problem Atherosclerosis of bilateral carotid arteries (disorder) (169437984127002) Bilateral carotid artery disease, unspecified type (I77.9) Active confirmed Problem Disorder of carotid artery (disorder) (765421570) Carotid artery disease, unspecified laterality, unspecified type (I77.9) Active confirmed Problem Diabetic renal disease (958471342) Type 2 diabetes mellitus with diabetic chronic kidney disease, unspecified CKD stage, unspecified whether intermediate insulin use (E11.22) Active confirmed Problem Chronic kidney disease stage 3B (disorder) (160556790) Chronic kidney disease, stage 3b (N18.32) Active confirmed Problem Chronic kidney disease stage 3A (901365548) Stage 3a chronic kidney disease (N18.31) Active confirmed Problem Urinary incontinence (118475434) Urinary incontinence in female (R32) Active confirmed Vital Signs Heart Rate 91 /min 03/27/2025 Blood pressure diastolic 74 mm Hg 03/27/2025 Height 63 in 03/27/2025 Blood pressure systolic 130 mm Hg 03/27/2025 Weight 179.4 lbs 03/27/2025 BMI 31.78 kg/m2 03/27/2025 Encounters Encounter Location Date Provider Diagnosis [place] [address] [place] Rosa [id number] 04/20/2024 Cosme Chamois OAB (overactive blad rocio) N32.81 [facility] [address] [place] [address] [place] Rosa [id number] 06/22/2024 Cosme Chamois Nausea and vomiting, unspecified vomiting type R11.2 ; Intermittent diarrhea R19.7 ; Urinary incontinence in female R32 ; Periumbilical pain R10.33 ; Type 2 diabetes mellitus without complication E11.9 and Acute UTI N39.0 [facility] [address] [place] [address] [place] Rosa [id number] 07/21/2024 Cosme Chamois Nausea and vomiting, unspecified vomiting type R11.2 ; Anemia, unspecified type D64.9 ; Type 2 diabetes mellitus with hypoglycemia without coma E11.649 and longterm (current) use of insulin Z79.4 [facility] [address] [place] [address] [place] Rosa [id number] 08/31/2024 Cosme Chamois Open wound of right heel, initial encounter S91.301A [facility] [address] [place] [address] [place] Rosa [id number] 10/21/2024 Cosme Chamois Type 2 diabetes darren itus without complication E11.9 ; Essential hypertension I10 ; Stage 3a chronic kidney disease N18.31 ; Anemia, unspecified type D64.9 ; Acquired hypothyroidism E03.9 and Hyperlipidemia, unspecified hyperlipidemia type E78.5 [facility] [address] [place] [address] [place] Rosa [id number] 02/09/2025 Cosme Chamois Iron deficiency anem ia due to chronic blood loss D50.0 ; Gastrointestinal hemorrhage, unspecified gastrointestinal hemorrhage type K92.2 ; Open wound of left lower leg, initial encounter S81.802A ; PAF (paroxysmal atrial fibrillation) I48.0 ; PAD (peripheral artery disease) I73.9 ; Type 2 diabetes mellitus with diabetic chronic kidney disease, unspecified CKD stage, unspecified whether intermediate insulin use E11.22 ; Chronic kidney disease, stage 3b N18.32 and Non morbid obesity due to excess calories E66.09 [facility] [address] [place], [place] [id number] 03/27/2025 Cosme Chamois Type 2 diabetes darren itus without complication E11.9 and Hyperlipidemia, unspecified hyperlipidemia type E78.5 [facility] [address] [place], [place] [id number] 06/24/2024 Cosme Chamois [facility] [address] [place], [place] [id number] 06/29/2024 Cosme Chamois [facility] [address] [place], [place] [id number] 07/22/2024 Cosme Chamois [facility] [address] [place] [id number] 08/04/2024 Cosme Chamois [facility] [address] [place] [id number] 08/16/2024 Cosme Chamois [facility] [address] [place], [place] [id number] 08/19/2024 Cosme Chamois [facility] [address] [place] [id number] 08/19/2024 Cosme Chamois [facility] [address] [place] [id number] 08/25/2024 Cosme Chamois [facility] [address] [place], [place] [id number] 09/08/2024 Cosme Chamois [facility] [address] [place] [id number] 09/08/2024 Cosme Chamois Type 2 diabetes darren itus with hypoglycemia without coma E11.649 [facility] [address] [place], [place] [id number] 10/07/2024 Cosme Chamois [facility] [address] [place] [id number] 10/24/2024 Cosme Chamois [facility] [address] [place], [place] [id number] 01/25/2025 Cosme Chamois [facility] [address] [place], [place] [id number] 02/15/2025 Cosme Chamois Iron deficiency anem ia due to chronic blood loss D50.0 [facility] [address] [place], [place] [id number] 02/21/2025 Cosme Chamois Screening for osteop orosis Z13.820 [facility] [address] [place], [place] [id number] 02/25/2025 Cosme Chamois [facility] [address] [place] [id number] 03/31/2025 Cosme Chamois [facility] [address] [place] [id number] 04/07/2025 Cosme Chamois Type 2 diabetes darren itus without complication E11.9 Assessments Encounter Date Diagnosis (ICD Code) Assessment [...] 02/21/2025 Screening for osteoporosis (ICD-10 - Z13.820) 03/27/2025 Type 2 diabetes mellitus without complication (ICD-10 - E11.9) 03/27/2025 Hyperlipidemia, unspecified hyperlipidemia type (ICD-10 - E78.5) 04/07/2025 Type 2 diabetes mellitus without complication (ICD-10 - E11.9) 02/09/2025 Open wound of left lower leg, initial encounter (ICD-10 - S81.802A) 10/21/2024 Stage 3a chronic kidney disease (ICD-10 - N18.31) 06/22/2024 Urinary incontinence in female (ICD-10 - R32) 07/21/2024 Type 2 diabetes mellitus with hypoglycemia without coma (ICD-10 - E11.649) 07/21/2024 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 (ICD-10 - Z79.4) [...] disease, unspecified CKD stage, unspecified whether intermediate insulin use (ICD-10 - E11.22) 02/09/2025 Chronic [...] [address], [address], [place], [place], [id number], Insurance Providers Payer Name Payer Address Payer Phone Subscriber Number Group Number Insured Name Patient Relationship to Insured Coverage Start Date Coverage End Date [employer] (MEDICAR E) [address] [address] [place] [phone] [id number] Yesi Fernandez Self - patient is the insured Medical (General) History Medical History History ICD Code Type 2 Diabetes, Dx: 1979 Hypertension Hyperlipidemia TIA Carotid Stenosis, Dx: 2020 Surgical History Surgery Date(Month/Year) [facility] - TCAR (TransCarotid Artery Revascula rization) right side 03/06/2021 [facility] - TCAR, left side 10/22/2021 Hospitalization History Reason Date(Month/Year) Rt Carotid Stenosis and TCAR- [facility] 03/06-2 04/2021 TIA 01/01-01/03/21 Carotid Stenosis 01/02- Blood Pressure, Nausea 09/09-09/10/2010 Gallbladder 1989
[2025-04-12 11:35] LABS: Hematocrit 37.6 % (37.0-47.0); Hemoglobin 11.8 g/dL (12.2-16.2); Immature Granulocytes % 0.8 %; Mean Corpuscular HGB Conc 31.4 g/dL (31.8-35.4); Mean Corpuscular Hemoglobin 29.7 pg (27.0-31.2); Mean Corpuscular Volume 94.7 fl (81-99); Nucleated Red Blood Cells % 0 %; Platelet Count 264 K/mm3 (142-424); Red Blood Count 3.97 M/mm3 (4.20-5.40); Red Cell Distribution Width-SD 60.3 fL; White Blood Count 8.0 K/mm3 (4.8-10.8)
[2025-04-12 12:28] LABS: Iron 77 ug/dL (37-170)
[2025-04-12 12:37] LABS: Total Iron Binding Capacity 289 ug/dL (265-497)
[2025-04-12 13:04] LABS: Ferritin 61.2 ng/ml (11.1-264)
== END 2025-04-12 23:59 | disposition home or self-care (01) ==
PROVIDERS: PCP Family Medicine; Visit Provider Internal Medicine Medical Oncology
DX: D64.9 Anemia, unspecified (principal)
CPT/HCPCS: 36415; 82728; 83540; 83550; 85025

== ENCOUNTER 2025-04-19 10:36 | Outpatient (CLI) | payer MEDICARE, OTHER, SELFPAY ==
--- OUTSIDE RECORDS SUMMARY | 2025-02-09 07:00 | XMS_ITS ---
Author Organization [facility] Address [address] [facility] [address] [place] [phone] Care Team Providers Care Dial Buffer Name Role Phone Cosme Garcia Primary Care Provider [phone] Allergies No Known Allergies Results Component Value [...] 394 100 - 400 REASON FOR VISIT [facility] d/c f/u Medications Medication SIG (Take, [...] UNITS) Active Mupirocin 2 % 1 application Lease Operator ally Twice a day 02/09/2025 Active BD [...] DAILY; Duration: 30 Active FreeStyle Jg 3 [place] - as directed 08/19/2024 Active FreeStyle Jg 3 Plus Sensor - Apply one sensor every 14 days; Duration: 28 days 08/16/2024 Active Problems Problem Type SNOMED Code ICD Code Onset Dates Problem Status W/U Status Risk Notes Problem Iron deficiency anemia due to chronic blood loss (451578319) Iron deficiency anemia due to chronic blood loss (D50.0) Active confirmed Problem Diabetic renal disease (349911077) Type 2 diabetes mellitus with diabetic chronic kidney disease, unspecified CKD stage, unspecified whether 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 (E11.22) Active confirmed Problem Chronic kidney disease stage 3B (disorder) (773245561) Chronic kidney disease, stage 3b (N18.32) Active confirmed Vital Signs Blood pressure systolic 122 mm Hg 02/10/20 25 Blood pressure diastolic 72 mm Hg 025 Heart Rate 81 /min 02/09/2025 Height 63 in 02/09/2025 Weight 173 lbs 02/09/2025 BMI 30.64 kg/m2 02/09/2025 Encounters Encounter Location Date Provider Diagnosis [facility] [address] [place], [place] [phone] 02/09/2025 Cosme Garcia Iron deficiency anem ia due to chronic blood loss D50.0 ; Gastrointestinal hemorrhage, unspecified gastrointestinal hemorrhage type K92.2 ; Open wound of left lower leg, initial encounter S81.802A ; PAF (paroxysmal atrial fibrillation) I48.0 ; PAD (peripheral artery disease) I73.9 ; Type 2 diabetes mellitus with diabetic chronic kidney disease, unspecified CKD stage, unspecified whether senior living insulin use E11.22 ; Chronic kidney disease, [...] kidney disease, unspecified CKD stage, unspecified whether 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 (ICD-10 - E11.22) 02/09/2025 Chronic [...] Details Follow Up: 4 to 6 Weeks, [place] son: Provider Name:Cosme Amos ry, 07/25/2025 09:45:00 AM, [address], [address] , [place], [place], [phone], Progress Notes * Alec FERNANDEZOB: 9 (74 yo F)Acc No.[id number]:02/09/2025 Patient: Yesi UGALDE Provider: Damion Garcia M.D. :1950 A ge:74 Y S ex:Female Date:02/09/2025 Address:[address] [place] [address] [place], [id number] Subjective: * Chief Complaints: * [address] [facility] d/c f/u. * HPI: H PI: Patient is here today for a Transition of Care Visit. Discharge from the following Facility: [facility] with diagnosis of Iron Deficiency Anemia, Dr. [...] sensor every 14 days , Taking FreeStyle Gj 3 [place] - Device as directed , Taking Jardiance [...] of left lower leg, initial encounter - S86.297Z 4 . P AF (paroxysmal atrial fibrillation) - I48.0 5 . P AD (peripheral artery disease) - I73.9 6 . T ype 2 diabetes mellitus with diabetic chronic kidney disease, unspecified CKD stage, unspecified whether 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 - E11.22 7 . C [...] G 2211 Complex e/[place], [address] [facility] 14 DAY DISCH, 1111F [facility] MED/CURENT MED MERGE, [address]643 CAPILLARY BLOOD DRAW, 46243 CBC WITH AUTO DIFF, 1036F TOBACCO NON-USER, G8783 BP SCR PRFRM RCMDD DEFIND SCR INTVL, G8752 MOST RECENT SYSTOLIC BP < 140MM HG, G8754 MOST RECENT DIASTOLIC BP < 90MM HG * Follow Up: 4 to 6 Weeks * Images: Billing Information: * Visit Code: 87280 Office Visit, Est Pt., Level 4. * Procedure Codes: G2211 Complex e/[place]. [address] [facility] 14 DAY DISCH. 1111F [facility] MED/CURENT MED MERGE. 69874 CAPILLARY BLOOD DRAW. 84437 CBC WITH AUTO DIFF. 1036F TOBACCO NON-USER. G8783 BP SCR PRFRM RCMDD DEFIND SCR INTVL. G8752 MOST RECENT SYSTOLIC BP < 140MM HG. G8754 MOST RECENT DIASTOLIC BP < 90MM HG. * Electronic signature of Carol Garcia MD on 04/19/2025 at 10:40 AM EDT Sign off status: Pending * Provider: Damion Garcia M.D. Date: 0 02/09/2025 Generated for Alexander camp/Vamsi/Jakobitting on: 0 04/19/2025 10:40 AM EDT History and Physical Notes * HPI (History of Present Illness) Category Sub-Category Detail Notes Category Not es HPI Patient is here today for a [facility] sition of Care Visit. Discharge from the following Facility: [facility] with diagnosis of Iron Deficiency Anemia, Dr. [...]
--- OUTSIDE RECORDS SUMMARY | 2025-02-20 09:30 | XMS_ITS ---
Author Organization [facility] Address [address] [facility] [address] [facility] [address] [place] [id number] Care Team Providers Care Deli/Bakery Associate Name Role Phone Cosme Garcia Primary Care Provider REASON FOR VISIT 4 month check Encounters Encounter Location Date Provider Diagnosis C[facility] [address] [place] [id number] 02/20/2025 Cosme Garcia Plan Of Treatment Next Appt Details Provider Name:Cosme Amos ry, 07/25/2025 09:45:00 AM, [address], [address], [place], [phone], Progress Notes * URIAHSurendraBrandonOB: 9 (74 yo F)Acc No.[id number]:02/20/2025 Progress Notes Patient: Yesi UGALDE Provider: Damion Garcia M.D. :1950 A ge:74 Y S ex:Female Date:02/20/2025 Address:[facility] [id number] Subjective: * Chief Complaints: * 1 . 4 month check. * Medical History: Objective: * Vitals: Assessment: Plan: * Treatment: * Images: Billing Information: * Visit Code: * Procedure Codes: * Electronic signature of Carol Garcia MD on 04/19/2025 at 10:41 AM EDT Sign off status: Pending * Provider: Damion Garcia M.D. Date: 0 02/20/2025 Generated for Lesiai conrado/Vamsi/eTransmitting on: 0 04/19/2025 10:41 AM EDT
--- OUTSIDE RECORDS SUMMARY | 2025-02-21 06:38 | XMS_ITS ---
Author Organization [facility] Address 1210 [facility] 36 [facility] [address] [place] [id number] Care Team Providers Care Cobbler Upper Name Role Phone Cosme Garcia Primary Care Provider REASON FOR VISIT due dexa Encounters Encounter Location Date Provider Diagnosis [facility] [address] [place] [id number] 02/21/2025 Cosme Garcia Screening for osteoporosis Z13.820 Assessments Encounter Date Diagnosis (ICD Code) Assessment Notes Treatment Notes Treatment Clinical Notes Section Notes 02/21/2025 Screening for osteoporosis (ICD-10 - Z13.820) Plan Of Treatment Pending Test Test Name Order Date Bone density 02/21/2025 Next Appt Details Provider Name:Cosme Amos ry, 07/25/2025 09:45:00 AM, [address] [facility] 36 [facility], [address], [place], [phone], Progress Notes * Alec FERNANDEZOB: 9 (74 yo F)Acc No.[id number]:02/21/2025 Patient: Yesi UGALDE :1950 A ge:74 Y S ex:Female Address:[facility] [place], [address] Subjective: * Chief Complaints: * D ue dexa * Medical History: * Surgical History: * Hospitalization/Major Diagno stic Procedure: * Medications: Objective: * Vitals: * Physical Examination: Assessment: * Assessment: 1. S creening for osteoporosis - Z13.820 (Primary) Plan: * Treatment: * Procedure Codes: * true * Date: Generated for Printi ng/Faxing/eTransmitting on: 0 04/19/2025 10:39 AM EDT
--- OUTSIDE RECORDS SUMMARY | 2025-03-27 06:15 | XMS_ITS ---
Author Organization [facility] Address [address] [place] [id number] Care Team Providers Care Slitting Machine Operator Helper Name Role Phone Cosme Garcia Primary Care Provider [phone] Allergies No Known Allergies Results Component Value Reference Range Notes Glucose (In-House) Reviewed date:03/27/2025 12:21:37 PM Interpretation:137 Performing Lab: Notes/Report: 137 blood glucose 137 74 - 106 mg/dL Glycohemoglobin A1c (in hous e) Reviewed date:03/27/2025 12:21:30 PM Interpretation:7.4% Performing Lab: Notes/Report: 7.4% glycohemoglobin 7.4% 5 - 6.5 % REASON FOR VISIT f/u Medications Medication SIG (Take, Route, Frequency, Duration) Notes Start Date End Date Status Pantoprazole Sodium 40 MG 1 tablet Orall y Once a day; Duration: 30 days Active Famotidine 20 MG 1 tablet at bedtime as needed Orally twice a day; Duration: 30 days Active Levothyroxine Sodium 100 MCG 1 tablet in the morning on an empty stomach Orally Once a day; Duration: 30 days Active Feosol Bifera 28 MG 1 tablet Orally Once a day; Duration: 90 days 10/31/2024 Active Eliquis 5 MG 1 tablet Orally Twic e a day; Duration: 90 days Active Accu-Chek Amanda Plus - 1 strip(s) finger stick 2 times a day or as directed; Duration: 90 days Active oxyBUTYnin Chloride ER 5 MG 1 tablet Orally Once a day; Duration: 90 days Active Lisinopril 10 MG 1 tab(s) orally once a day Active Metoprolol Tartrate 25 MG 1/2 tablet Ora lly Twice a day Active Atorvastatin Calcium 80 MG 1 tab(s) oral ly once a day (at bedtime); Duration: 90 days Active FreeStyle Jg 3 [place] - as directed 08/19/2024 Active FreeStyle Jg 3 Plus Sensor - Apply one sensor every 14 days; Duration: 28 days 08/16/2024 Active Accu-Chek Amanda Plus w/Device as directed 12/04/2023 Active FreeStyle Jg 3 Plus Sensor - as directed 07/21/2024 Active Ondansetron 4 MG 1 tablet on the tong ue and allow to dissolve Orally three times a day as needed Active BD Pen Needle Short U/F 31 GUAGE X 5/16 INCH 1 PEN NEEDLE ONCE A DAY; Duration: 90 DAYS 03/08/2020 Active Albuterol Sulfate HFA 108 (90 Base) MCG/ACT 1 puff as needed Inhalation every 4 hrs, prn 11/18/2023 Active BD Swab Single Use Regular - 1 swab(s) fingerstick test 2 times a day; Duration: 90 days 12/19/2015 Active BD PEN NEEDLE 29G X3/16 (AUTOSHIELD) 1 SUBCUTANEOUSLY QID; Duration: 90 DAYS 03/19/2021 Active Aspirin Adult Low Dose 81 MG 1 tab(s) orally once a day A ctive Vitamin D3 50 MCG (2000 UT) 2 tab(s) orally once a day 03/09/2019 A ctive Vitamin B-12 1000 MCG 1 tab(s) orally once a day 0 03/09/2019 Active Lantus SoloStar 100 UNIT/ML INJECT 40 TO 50 UNITS SUBCUTANEOUSLY TWO TIMES A DAY Active NovoLOG 100 UNIT/ML SLIDING SCALE BEFORE MEALS UNDER THE SKIN DIRECTED (MAX DAILY DOSE IS 75 UNITS) Active Jardiance 25 MG 1 tab(s) orally once a day (in the morning) Active metFORMIN HCl 1000 MG 1 tab(s) orally 2 times a day Active Vital Signs Blood pressure systolic 130 mm Hg 03/27/20 25 Blood pressure diastolic 74 mm Hg 025 Heart Rate 91 /min 03/27/2025 Height 63 in 03/27/2025 Weight 179.4 lbs 03/27/2025 BMI 31.78 kg/m2 03/27/2025 Encounters Encounter Location Date Provider Diagnosis [facility] [address] [facility] [address] [place], [place] [phone] 03/27/2025 Cosme Garcia Type 2 diabetes darren itus without complication E11.9 and Hyperlipidemia, unspecified hyperlipidemia type E78.5 Assessments Encounter Date Diagnosis (ICD Code) Assessment Notes Treatment Notes Treatment Clinical Notes Section Notes 03/27/2025 Type 2 diabetes mellitus without complication (ICD-10 - E11.9) 03/27/2025 Hyperlipidemia, unspecified hyperlipidemia type (ICD-10 - E78.5) Plan Of Treatment Medication Medication Name Sig Start Date Stop Date Notes Atorvastatin Calcium 80 MG 1 tab(s) oral ly once a day (at bedtime); Duration: 90 days Lantus SoloStar 100 UNIT/ML INJECT 40 TO 50 UNITS SUBCUTANEOUSLY TWO TIMES A DAY NovoLOG 100 UNIT/ML SLIDING SCALE BEFORE MEALS UNDER THE SKIN DIRECTED (MAX DAILY DOSE IS 75 UNITS) Jardiance 25 MG 1 tab(s) orally once a day (in the morning) metFORMIN HCl 1000 MG 1 tab(s) orally 2 times a day Next Appt Details Follow Up: 4 Months, Reason: Provider Name:Cosme Amos , 07/25/2025 09:45:00 AM, [address] [facility] [address] [facility], [address] , [place], [place], [id number], Progress Notes * Swathi FERNANDEZJenniferOB: 9 (74 yo F)Acc No.[id number]:03/27/2025 Patient: Yesi UGALDE Provider: Damion Garcia M.D. :1950 A ge:74 Y S ex:Female Date:03/27/2025 Address:[address] [place] [address] [place], [id number] Subjective: * Chief Complaints: * 1 . F/u. * HPI: E ndocrinology: 74 year old female presents with c/o Recent Blood Sugars P t here to check up on DM 2. C ardiology: c/o Hyperlipidemia P t is fasting today. * ROS: D ERMATOLOGY: no R evan. [...] times a day as needed , Taking FreeStyle Jg 3 Plus Sensor - Miscellaneous Apply one sensor every 14 days , Taking FreeStyle Jg 3 [place] - Device as directed , Taking Jardiance [...] tablet Orally Twice a day , Taking Lantus SoloStar 100 UNIT/ML Solution Pen-injector INJECT 40 TO 50 UNITS SUBCUTANEOUSLY TWO TIMES A DAY , Taking Accu-Chek Amanda Plus - Strip 1 strip(s) fingerstick 2 times a day or as directed , Taking oxyBUTYnin Chloride ER 5 MG Tablet Extended Release 24 Hour 1 tablet Orally Once a day , Taking Pantoprazole Sodium 40 MG Tablet Delayed Release 1 tablet Orally Once a day , Taking Famotidine 20 MG Tablet 1 tablet at bedtime as needed Orally twice a day , Taking Levothyroxine Sodium 100 MCG Tablet 1 tablet in the morning on an empty stomach Orally Once a day , Discontinued Venofer 20 MG/ML Solution 5 mL Intravenous , Discontinued Mupirocin 2 % Ointment 1 application Externally Twice a day , Discontinued Transfuse 2 Units PRBC 2 units packed red blood cells transfuse 2 units, then 1 hour post transfusion perform H and H IV , Medication List reviewed and reconciled with the patient * Allergies: N .K.D.A. Objective: * Vitals: W t: 179.4, Temp: 97.7, BP: 130/74, HR: 91, Nurse: michael, Ht: 63, BMI:31.78. * Examination: G eneral Examination: General Appearance: N AD. H eart: R SR. L ungs:?clear to auscultation. Assessment: * Assessment: 1. T ype 2 diabetes mellitus without complication - E11.9 (Primary) 2 . H yperlipidemia, unspecified hyperlipidemia type - E78.5 Plan: * Treatment: Value Reference Range b lood glucose 137 74 - 106 mg/dL * Corinne Kaba 03/27/2025 10:4 8:35 AM EDT > Provider reviewed results while patient in office. ?LAB: Glycohemoglobin A1c (in house) (Collection Date & Time - 03/27/2025)? 7.4%* Value Reference Range g lycohemoglobin 7.4% 5 - 6.5 % * Corinne Kaba 03/27/2025 10:4 9:11 AM EDT > Provider reviewed results while patient in office. 2.?Hyperlipidemia, unspecified hyperlipidemia type? Refill Atorvastatin Calcium Tablet, 80 MG, 1 tab(s), orally, once a day (at bedtime), 90 days, 90, Refills 1.?? * Procedure Codes: G 2211 Complex e/[place], [address] CAPILLARY BLOOD DRAW, 16354 GLUCOSE TEST, 41556 GLYCATED HEMOGLOBIN TEST, Modifiers: QW , 3051F HG A1C>EQUAL 7.0%<8.0%, 1036F TOBACCO NON-USER, G8783 BP SCR PRFRM RCMDD DEFIND SCR INTVL, G8752 MOST RECENT SYSTOLIC BP < 140MM HG, G8754 MOST RECENT DIASTOLIC BP < 90MM HG * Follow Up: 4 Months * Images: Billing Information: * Visit Code: 36799 Office Visit, Est Pt., Level 3. * Procedure Codes: G2211 Complex e/[place]. [address] CAPILLARY BLOOD DRAW. 92140 GLUCOSE TEST. 07744 GLYCATED HEMOGLOBIN TEST. Modifiers: QW 3051F HG A1C>EQUAL 7.0%<8.0%. 1036F TOBACCO NON-USER. G8783 BP SCR PRFRM RCMDD DEFIND SCR INTVL. G8752 MOST RECENT SYSTOLIC BP < 140MM HG. G8754 MOST RECENT DIASTOLIC BP < 90MM HG. * Electronic signature of Carol Garcia MD on 04/19/2025 at 10:40 AM EDT Sign off status: Pending * Provider: Damion Garcia M.D. Date: 0 03/27/2025 Generated for [facility] camp/Vamsi/Yung on: 0 04/19/2025 10:40 AM EDT History and Physical Notes * HPI (History of Present Illness) Category Sub-Category Detail Notes Category Not es Endocrinology Recent Blood Sugars Pt here to check up on DM 2 Cardiology Hyperlipidemia Pt is fasting today Examination Category Sub-Category Detail Notes Category Not es General Examination Heart: RSR Lungs: clear to auscultatio n General Appearance: NAD
--- OUTSIDE RECORDS SUMMARY | 2025-04-19 10:40 | XMS_ITS | Patient Health Record ---
Author Organization [facility] Address [address] [facility] [address] EMILY Rosa [id number] Care Team Providers Care Combat Systems Operator Name Role Phone Cosme Garcia Primary Care Provider Allergies No Known Allergies Results Component Value Reference Range Notes Type and Cross 2 units PRBC Reviewed date:02/16/2025 09:46:08 AM Interpretation: Performing Lab: Notes/Report: P-Microalbumin/Creatinine, R andom Urine Sample Reviewed date:10/24/2024 12:19:30 PM Interpretation:Album/Creat 65 Performing Lab: Notes/Report: Test performed by [facility] [address] [place] [address] , [address], [place] [address] Andrea Flores MD, Corrugator Supervisor CLIA: [id number] Albumin/Creatinine Ratio, Urine 65 0-30 ug/mg Microalbumin, Urine, Random 3.5 Creatinine, Urine 54.1 P-TSH Reviewed date:10/24/2024 12:19:30 PM Interpretation:7.02 Performing Lab: Notes/Report: Test performed by [facility] [address] [place] [address] , [address], [place] [address] Andrea Flores MD, Corrugator Supervisor CLIA: [id number] TSH 7.02 0.43-5.25 mU/L P-Phosphorus Reviewed date:10/24/2024 12:19:30 PM Interpretation:Normal Performing Lab: Notes/Report: Test performed by [facility] [address] [place] [address] , [address], [place] [address] Andrea Flores MD, Corrugator Supervisor CLIA: [id number] Phosphorus 4.2 2.5-4.5 mg/dL P-Lipid Panel Reviewed date:10/24/2024 12:19:30 PM Interpretation:Normal Performing Lab: Notes/Report: Test performed by [facility], [facility] [address] [facility] [address], [place] [address] Andrea Flores MD, Corrugator Supervisor CLIA: [id number] Cholesterol 167 <200 mg/dL Triglycerides 108 <150 [...] Interpretation:Normal Performing Lab: Notes/Report: Test performed by [id number] [address] , [address], [place] [address] Andrea Flores MD, Corrugator Supervisor CLIA: [id number] Iron 42 37-145 ug/dL P-T4 Free (thyroxine) Reviewed date:10/24/2024 12:19:30 PM Interpretation:Normal Performing Lab: Notes/Report: [facility] , [address], [place] [address] Andrea Flores MD, Corrugator Supervisor CLIA: [id number] Thyroxine Free (free T4) 1.66 0.86-1.76 ng/dL P-Comprehensive Metabolic Pa luis (CMP) Reviewed date:10/24/2024 12:19:30 PM Interpretation:glu 111, BUN 27, Creat 1.20, GFR 47 Performing Lab: Notes/Report: Test performed by [facility] [address] , [address], [place] [address] Andrea Flores MD, Corrugator Supervisor CLIA: [id number] Sodium 144 135-145 mmol/L Potassium 4.4 3.5-5.3 [...] Interpretation:26 Performing Lab: Notes/Report: Test performed by [id number] [address] , [address], [place] [address] Andrea Flores MD, Corrugator Supervisor CLIA: [id number] Amylase 26 28-100 U/L P-Comprehensive Metabolic Pa luis (CMP) Reviewed date:06/24/2024 08:26:05 AM Interpretation:gluc 264, Cr 1.58, gfr 34 Performing Lab: Notes/Report: Test performed by [facility] [address] [place] [address] [address], [place] [address] Andrea Flores MD, Corrugator Supervisor CLIA: [id number] Sodium 140 135-145 mmol/L Potassium 4.6 3.5-5.3 [...] Interpretation:sensitive Performing Lab: Notes/Report: Test performed by [facility] [address], [place] [address] Andrea Flores MD, Corrugator Supervisor CLIA: [id number] Specimen Source Urine - Void Culture, Urine [...] Interpretation:0.52 Performing Lab: Notes/Report: Test performed by [facility] [address] [place], [place] [address] [address] , [place] [address] Andrea Flores MD, Corrugator Supervisor CLIA: [id number] Thyroxine Free (free T4) 0.52 0.86-1.76 ng/dL P-Lipase Reviewed date:06/24/2024 08:26:05 AM Interpretation:9.9 Performing Lab: Notes/Report: Test performed by [facility] [address] [place], [place] [address] , [place] [address] Andrea Flores MD, Corrugator Supervisor CLIA: [id number] Lipase 9.9 13.0-60.0 u/L P-Troponin I Reviewed date:06/24/2024 08:24:15 AM Interpretation: Performing Lab: Notes/Report: P-Rcdonbvt-E Reviewed date:06/24/2024 08:26:05 AM Interpretation:24 Performing Lab: Notes/Report: Test performed by [facility] [address] [place] [address] , [address], [place] [address] Andrea Flores MD, Corrugator Supervisor CLIA: [id number] Troponin-T 24 <6-18 ng/L Patients who are prescribed biotin may exhibit elevated troponin results. Please interpret results accordingly. P-TSH reflex to FT4 Reviewed date:06/24/2024 08:26:05 AM Interpretation:95.3 Performing Lab: Notes/Report: Test performed by [facility] [address] [place] [address] , [address], [place] [address] Andrea Flores MD, Corrugator Supervisor CLIA: [id number] TSH reflex to FT4 95.30 0.43-5.25 mU/L Glucose (In-House) Reviewed date:03/27/2025 12:21:37 PM Interpretation:137 Performing Lab: Notes/Report: 137 blood glucose 137 74 - 106 mg/dL Glycohemoglobin A1c (in hous e) Reviewed date:03/27/2025 12:21:30 PM Interpretation:7.4% Performing Lab: Notes/Report: 7.4% glycohemoglobin 7.4% 5 - 6.5 % H-TSH Reviewed date:07/15/2024 10:22:34 AM Interpretation:79.3 Performing [...] 46 Performing Lab: Notes/Report: Test performed by [facility] [address] [place] [address] , [address], [place] [address] Andrea Flores MD, Corrugator Supervisor CLIA: [id number] Sodium 139 135-145 mmol/L Potassium 4.5 3.5-5.3 [...] Interpretation:Normal Performing Lab: Notes/Report: Test performed by [email or web address] [address] , [place] [address] Andrea Flores MD, Corrugator Supervisor CLIA: [id number] Iron 65 37-145 ug/dL Transferrin 244 200-360 mg/dL Transferrin Saturation Percentage 19 15-50 % P-Reticulocyte Count Reviewed date:07/22/2024 10:58:36 AM Interpretation:2.2 Performing Lab: Notes/Report: Test performed by [facility] [address] [place] [address] , [address], [place] [address] Andrea Flores MD, Corrugator Supervisor CLIA: [id number] Reticulocyte Count 2.2 0.5-2.1 % CBC Fingerstick (in house) Reviewed date:02/09/2025 03:06:35 [...] - 38 plat 394 100 - 400 M-Hemoglobin and Hematocrit Reviewed date:02/27/2025 04:40:27 PM [...] Post-Transf H/H other (specify) XM UNIT NUMBER: [id number] XM COMPATIBLE: Y XM PRODUCT: Red Blood Cells XM SOURCE: [facility] XM BLOOD TYPE: O Negative XM VOLUME: 250mL XM CROSSMATCH COMPONENTS: XMNOTE Notification Notified A FLORES by Marta Mcdowell 02/15/251655. Notified A FLORES by Marta Mcdowell 02/15/251656. XM UNIT NUMBER: [id number] XM COMPATIBLE: Y XM PRODUCT: Red Blood [...] TRANSFUSED PRODUCT: Red Blood Cells COUNT: 2 Urinalysis - Inhouse Reviewed date:04/20/2024 12:19:49 PM Interpretation: Performing Lab: Notes/Report: Color/Clarity yellow/clear Leuk neg Nitrite neg Urobili 3.2 Protein neg pH 5.5 Blood neg Sp. Gr. 1.020 Ketone neg Bili neg Gluc 2+ Hemoglobin/Hematocrit Reviewed date:02/25/2025 10:56:10 AM Interpretation: Performing Lab: Notes/Report: H-Troponin I Reviewed date:01/24/2025 10:24:48 AM Interpretation: Performing Lab: Notes/Report: TROP 0.56 0.00-0.034 ng/ml CRITICAL RESULT Results called and read back/verified to: [facility] on 01/24/25 at 0710 By Nereida Matias MEDICAL BILLING SUPERVISOR <0.012-0.034 ng/mL NORMAL 0.035 - >0.120 [...] 37-170 ug/dL DTIBC 335 265-497 ug/dL IRONSAT 8.47990 15-55 % H-BMP Reviewed date:01/24/2025 10:24:48 AM [...] 0.0 0-0.2 K/mm3 NRBC# 0 IG# 0.04 Reason For Referral No Information Medications Medication [...] day 03/09/2019 A ctive FreeStyle Jg 3 [place] - as directed 08/19/2024 Active metFORMIN HCl [...] Vaccine Route Administration Date Status Comme nts Fluzone High Dose (65yr and older) IM Intramuscular 06/29/2017 Administered Fluzone High Dose (65yr and older) IM Intramuscular 07/08/2018 Administered Fluzone High Dose (65yr and older) IM Intramuscular 05/10/2019 Administered Fluzone High Dose (65yr and older) IM Intramuscular 06/14/2020 Administered Fluzone High Dose (65yr and older) IM Intramuscular 08/21/2022 Administered PNEUMOVAX 23 VACCINE IM Intramuscular 09/30/2016 Administe red ppd ID Intradermal 07/07/2016 Administered ppd ID Intradermal 06/29/2017 Administered Prevnar (PCV13) IM Intramuscular 09/18/2014 Administered Prevnar (PCV20) IM Intramuscular 08/21/2022 Administered Tetanus Tdap-Adacel (over 7yrs) IM Intramuscular 11/29/2013 Administered Tetanus Tdap-Adacel (over 7yrs) Unknown 09/25/2023 Administered xFlu shot-36 months and older IM Intramuscular 07/26/2010 Administered xFluzone (6mos and older)-trivalent IM Intramuscular 06/20/2011 Administered xFluzone (6mos and older)-trivalent IM Intramuscular 05/24/2012 Administered xFluzone Intradermal (18-64yrs)-trivalent IM Intramuscular 06/01/2013 Administered Problems Problem Type SNOMED Code ICD Code Onset Dates Problem Status W/U Status Risk Notes Problem Essential hypertension (94829799) Essential (primary) hypertension (I10) Active confirmed Problem Hyperkalemia (54316207) Hyperkalemia (E87.5) Active confirmed Problem Essential hypertension (16429787) Essential hypertension (I10) Active confirmed Problem Body mass index 30+ - obesity (941111746) BMI 30.0-30.9,adult (Z68.30) Active confirmed Problem Overactive urinary bladder (disorder) (426663572) OAB (overactive bladder) (N32.81) Active confirmed Problem Hypoglycemia due to type 2 diabetes mellitus (474961857760161) Type 2 diabetes mellitus with hypoglycemia without coma (E11.649) Active confirmed Problem Mixed hyperlipidemia (395232902) Mixed hyperlipidemia (E78.2) Active confirmed Problem Chronic pulmonary edema (56899706) Chronic pulmonary edema (J81.1) Active confirmed Problem Long-term current use of insulin (642201250) roasterman (current) use of insulin (Z79.4) Active confirmed Problem Type II diabetes mellitus without complication (118685171) Type 2 diabetes mellitus without complication (E11.9) Active confirmed Problem Acquired hypothyroidism (610692931) Acquired hypothyroidism (E03.9) Active confirmed Problem Obesity (801145607) Non morbid obesity due to excess calories (E66.09) Active confirmed Problem Atherosclerotic heart disease of [place] coronary artery without angina pectoris (885738901826749) Coronary artery disease involving [place] coronary artery of [place] heart without angina pectoris (I25.10) Active confirmed Problem Iron deficiency anemia due to chronic blood loss (447310979) Iron deficiency anemia due to chronic blood loss (D50.0) Active confirmed Problem Anemia (796920618) Anemia, unspecified type (D64.9) Active confirmed Problem Atrial fibrillation (04611451) PAF (paroxysmal atrial fibrillation) (I48.0) Active confirmed Problem Claudication (59208833) Claudication (I73.9) Active confirmed Problem Hyperlipidaemia (60440523) Hyperlipidemia, unspecified hyperlipidemia type (E78.5) Active confirmed Problem Atrial fibrillation (53443663) Atrial fibrillation with RVR (I48.91) Active confirmed Problem Recurrent falls (487999040) Frequent falls (R29.6) Active confirmed Problem Transient ischemic attack (738035741) TIA (transient ischemic attack) (G45.9) Active confirmed Problem Peripheral vascular disease (476669339) PAD (peripheral artery disease) (I73.9) Active confirmed Problem Atherosclerotic heart disease of [place] coronary artery without angina pectoris (806849718994984) Atherosclerosis of [place] coronary artery without angina pectoris, unspecified whether [place] or transplanted heart (I25.10) Active confirmed Problem Occlusion and stenosis of multiple and bilateral cerebral arteries (208799197) Bilateral carotid artery stenosis (I65.23) Active confirmed Problem Carotid artery occlusion (991758183) Stenosis of carotid artery, unspecified laterality (I65.29) Active confirmed Problem Obesity (777350658) Non morbid obesity (E66.9) Active confirmed Problem History of placement of stent for coronary artery disease (situation) (101845307) S/P coronary artery stent placement (Z95.5) Active confirmed Problem Type II diabetes mellitus without complication (928328414) Type 2 diabetes mellitus without complication, unspecified whether care home insulin use (E11.9) Active confirmed Problem Hyperglycemia due to type 2 diabetes mellitus (856861770074193) Uncontrolled type 2 diabetes mellitus with hyperglycemia (E11.65) Active confirmed Problem Atherosclerosis of bilateral carotid arteries (disorder) (535037540061521) Bilateral carotid artery disease, unspecified type (I77.9) Active confirmed Problem Disorder of carotid artery (disorder) (049625064) Carotid artery disease, unspecified laterality, unspecified type (I77.9) Active confirmed Problem Diabetic renal disease (347820431) Type 2 diabetes mellitus with diabetic chronic kidney disease, unspecified CKD stage, unspecified whether extermination supervisor insulin use (E11.22) Active confirmed Problem Chronic kidney disease stage 3B (disorder) (170647994) Chronic kidney disease, stage 3b (N18.32) Active confirmed Problem Chronic kidney disease stage 3A (113783085) Stage 3a chronic kidney disease (N18.31) Active confirmed Problem Urinary incontinence (928118668) Urinary incontinence in female (R32) Active confirmed Vital Signs Heart Rate 91 /min 03/27/2025 Blood pressure diastolic 74 mm Hg 03/27/2025 Height 63 in 03/27/2025 Blood pressure systolic 130 mm Hg 03/27/2025 Weight 179.4 lbs 03/27/2025 BMI 31.78 kg/m2 03/27/2025 Encounters Encounter Location Date Provider Diagnosis [facility] [address] [place] [id number] 04/20/2024 Cosme Littlefield OAB (overactive blad rocio) N32.81 [facility] [address] [place] [address] [place] [id number] 06/22/2024 Cosme Littlefield Nausea and vomiting, unspecified vomiting type R11.2 ; Intermittent diarrhea R19.7 ; Urinary incontinence in female R32 ; Periumbilical pain R10.33 ; Type 2 diabetes mellitus without complication E11.9 and Acute UTI N39.0 [facility] [address] [place] [address] [place] Rosa [id number] 07/21/2024 Cosme Littlefield Nausea and vomiting, unspecified vomiting type R11.2 ; Anemia, unspecified type D64.9 ; Type 2 diabetes mellitus with hypoglycemia without coma E11.649 and roasterman (current) use of insulin Z79.4 [facility] [address] [place] [address] EM[place] Rosa [id number] 08/31/2024 Cosme Littlefield Open wound of right heel, initial encounter S91.301A [facility] [address] [place] [address] [place] Rosa [id number] 10/21/2024 Cosme Littlefield Type 2 diabetes darren itus without complication E11.9 ; Essential hypertension I10 ; Stage 3a chronic kidney disease N18.31 ; Anemia, unspecified type D64.9 ; Acquired hypothyroidism E03.9 and Hyperlipidemia, unspecified hyperlipidemia type E78.5 [facility] [address] [place] [address] [place] Rosa [id number] 02/09/2025 Cosme Littlefield Iron deficiency anem ia due to chronic blood loss D50.0 ; Gastrointestinal hemorrhage, unspecified gastrointestinal hemorrhage type K92.2 ; Open wound of left lower leg, initial encounter S81.802A ; PAF (paroxysmal atrial fibrillation) I48.0 ; PAD (peripheral artery disease) I73.9 ; Type 2 diabetes mellitus with diabetic chronic kidney disease, unspecified CKD stage, unspecified whether care home insulin use E11.22 ; Chronic kidney disease, stage 3b N18.32 and Non morbid obesity due to excess calories E66.09 [facility] [address] [place], [place] [id number] 03/27/2025 Cosme Littlefield Type 2 diabetes darren itus without complication E11.9 and Hyperlipidemia, unspecified hyperlipidemia type E78.5 [facility] [address] [place], [place] [id number] 06/24/2024 Cosme Littlefield [facility] [address] [place], [place] [id number] 06/29/2024 Cosme Littlefield [facility] [address] [place], [place] [id number] 07/22/2024 Cosme Littlefield [facility] [address] [place], [place] [id number] 08/04/2024 Cosme Littlefield [facility] [address] [place] [id number] 08/16/2024 Cosme Littlefield [facility] [address] [place] [id number] 08/19/2024 Cosme Littlefield [facility] [address] [place], [place] [id number] 08/19/2024 Cosme Littlefield [facility] [address] [place], [place] [id number] 08/25/2024 Cosme Littlefield [facility] [address] [place] [id number] 09/08/2024 Cosme Littlefield [facility] [address] [place], [place] [id number] 09/08/2024 Cosme Littlefield Type 2 diabetes darren itus with hypoglycemia without coma E11.649 [facility] [address] [place], [place] [id number] 10/07/2024 Cosme Littlefield [facility] [address] [place] [id number] 10/24/2024 Cosme Littlefield [facility] [address] [place], [place] [id number] 01/25/2025 Cosme Littlefield [facility] [address] [place], [place] [id number] 02/15/2025 Cosme Littlefield Iron deficiency anem ia due to chronic blood loss D50.0 [facility] [address] [place], [place] [id number] 02/21/2025 Cosme Littlefield Screening for osteop orosis Z13.820 [facility] [address] [place], [place] [id number] 02/25/2025 Cosme Littlefield [facility] [address] [place] [id number] 03/31/2025 Cosme Littlefield [facility] [address] [place], [place] [id number] 04/07/2025 Cosme Littlefield Type 2 diabetes darren itus without complication [...] to chronic blood loss (ICD-10 - D50.0) 02/15/2025 Iron deficiency anemia due to chronic blood loss (ICD-10 - D50.0) 03/27/2025 Type 2 diabetes mellitus without complication (ICD-10 - E11.9) 03/27/2025 Hyperlipidemia, unspecified hyperlipidemia type (ICD-10 - E78.5) 04/07/2025 Type 2 diabetes mellitus without complication (ICD-10 - E11.9) 02/09/2025 Gastrointestinal hemorrhage, unspecified gastrointestinal hemorrhage type (ICD-10 - K92.2) Patient has follow up schedules with Dr. Lewis 02/21/2025 Screening for osteoporosis (ICD-10 - Z13.820) 02/09/2025 Open wound of left lower leg, initial encounter (ICD-10 - S81.802A) 10/21/2024 Stage 3a chronic kidney disease (ICD-10 - N18.31) 06/22/2024 Urinary incontinence in female (ICD-10 - R32) 07/21/2024 Type 2 diabetes mellitus with hypoglycemia without coma (ICD-10 - E11.649) 07/21/2024 roasterman (current) use of insulin (ICD-10 - Z79.4) [...] kidney disease, unspecified CKD stage, unspecified whether care home insulin use (ICD-10 - E11.22) 02/09/2025 Chronic [...] [address], [address], [place], [place], [id number], Insurance Providers Payer Name Payer Address Payer Phone Subscriber Number Group Number Insured Name Patient Relationship to Insured Coverage Start Date Coverage End Date [employer] (MEDICAR E) [address] [address] [place] [address] [id number] Yesi Fernandez Self - patient is the [...]
--- OUTSIDE RECORDS SUMMARY | 2025-04-19 10:41 | XMS_ITS | Clinical Summary ---
Author Organization [facility] Address [address] [place] [address] Care Team Providers Care Delivery Truck Driver Heavy Name Role Phone Cosme Garcia MD Primary Care Provider [phone] Allergies No known active allergies Medications CYANOCOBALAMIN [...] controlling her portion sizes better -Counseled that half-way hyperglycemia can cause worsening neuropathy, kidney damage, [...] Description 05/29/2025 2:00 PM EDT Office Visit [facility] [address] [facility] [address] [place] [address] Howard Burgos DO [address] [place] [address] Health Maintenance Due Date Last [...] SCREENING 06/25/2022 HEMOGLOBIN A1C 12/25/2022 06/27/2022, 01/25/2021 RSV Vaccine - Adults (1 - 1- dose 75+ series) 2024 COVID-19 Vaccine ( - 2023-2 5 season) 2025 INFLUENZA VACCINE 05/10/2025 06/14/2020, , 07/08/2018, Additional [...] 10:09 AM EST) Hemoglobin A1C 10.6 % [facility] Lot Number [id number] [facility] Expiration Date 04-23-24 [facility] Blood 06/27/2022 10:0 9 AM EST Bassam Krishnamurthy MD POINT OF CARE TEST ORDERABL ES Final Result [facility]
[address] [place] [id number], from Last 3 Months or Most Recently Relevant to Health Maintenance Insurance [employer] MEDICARE ADVANTAGE PPO Care Teams Delivery Truck Driver Heavy Relationship Specialty Start Date End Date Cosme Garcia MD [address] [facility] [address] [place] [address] PCP - General Family Medicine 01/04/21
--- OUTSIDE RECORDS SUMMARY | 2025-04-19 10:41 | XMS_ITS | Clinical Summary ---
Author Organization Healthcare Address [address] [place] [address] Care Team Providers Care Watermelon Inspector Name Role Phone Cosme Garcia MD Primary Care Provider [phone] Allergies No known active allergies Medications metFORMIN [...] lisinopril. Right groin access, left neck incision PIPING DRAFTER, WNL No heavy lifting (greater than 5 [...] Wellness (AWV) 1950 [facility]-/Child/Adol SDOH Screenings 1950 OVE-FOYSX-80 Vaccine (#1) 1954 [facility]- SDOH Screenings 1967 [...] this topic Medical Devices Implanted Type Area Career Discovery Teacher Device Identifier Shelf Expiration Date Model / Serial / Lot Stent Transcarotid System 9mm X 30mm - [id number] Implanted:Qty: 1 on 03/06/2021 by Leo Saleh MD at [facility]-[id number] 03/09/2023 SR-0930-C S / / [id number] Stent Transcarotid System 8mm X 30mm - [id number] Implanted:Qty: 1 on 10/22/2021 by Leo Saleh MD at [facility] Left: Carotid [id number] 02/07/2024 SR-0830-C S / / [id number] Procedures Procedure Name Priority Date/Time Associated Diagnosis [...] Adults <6.0% Children and Adolescents <7.5% Source: [place] [employer]. Standards of medical care in diabetes,2017. Diabetes Care.2017:40 (suppl 1):S1-S135. HbA1c assay performed by an ion-exchange chromatography method that is certified traceable to the DCCT. Bob Brown MD LAB BLOOD ORDERABLES Final Re sult Performing Organization Address City/[facility] Co de Phone Number [facility]ARE [facility] [address] [place] [address] * [place] Hepatitis C Antibody (01/25/2021 2:56 PM EDT) [facility] Signature Hepatitis C Antibody Negative Negative 01/25/2021 5:15 PM EDT [facility]ALTH[facility]ARE [facility] Blood Venous blood specimen / Unknown Venipuncture / Unknown 01/25/2021 2:56 PM EDT 01/25/2021 3:04 PM EDT Bob Brown MD LAB BLOOD ORDERABLES Final Re sult Performing Organization Address [facility] de Phone Number [facility]CARE [facility] [address] [place] [address] from Last 3 Months or Most Recently Relevant to Health Maintenance Insurance [facility] MEDICARE Advance Directives Documents on File Type Date Recorded Patient Overhead Irrigator Expl anation Advance Directives and Living Will 03/06/2021 Power of Dinkey Locomotive Engineer 01/25/2021 * Full Code (Latest Code Status on File) Date Activated Date Inactivated Comments 10/22/2021 10:32 AM 10/24/2021 5:12 PM Question Answer Comments Patient has decision-making capacity? Yes Care Teams Watermelon Inspector Relationship Specialty Start Date End Date Cosme Garcia MD [address] [facility] [address] [place] [address] PCP - General 01/24/21
[2025-04-19 10:53] LABS: Hematocrit 35.4 % (37.0-47.0); Hemoglobin 11.4 g/dL (12.2-16.2); Immature Granulocytes % 0.5 %; Mean Corpuscular HGB Conc 32.2 g/dL (31.8-35.4); Mean Corpuscular Hemoglobin 29.6 pg (27.0-31.2); Mean Corpuscular Volume 91.9 fl (81-99); Nucleated Red Blood Cells % 0 %; Platelet Count 260 K/mm3 (142-424); Red Blood Count 3.85 M/mm3 (4.20-5.40); Red Cell Distribution Width-SD 57.1 fL; White Blood Count 8.2 K/mm3 (4.8-10.8)
[2025-04-19 11:12] LABS: Iron 64 ug/dL (37-170)
[2025-04-19 11:21] LABS: Total Iron Binding Capacity 288 ug/dL (265-497)
[2025-04-19 11:48] LABS: Ferritin 51.2 ng/ml (11.1-264)
== END 2025-04-19 23:59 | disposition home or self-care (01) ==
LOC: LAB 10:37
PROVIDERS: PCP Family Medicine; Visit Provider Internal Medicine Medical Oncology
DX: D64.9 Anemia, unspecified (principal)
CPT/HCPCS: 36415; 82728; 83540; 83550; 85025

== ENCOUNTER 2025-05-09 16:48 | Outpatient (CLI) | payer MEDICARE, OTHER, SELFPAY ==
--- OUTSIDE RECORDS SUMMARY | 2025-02-09 07:00 | XMS_ITS ---
Author Organization [facility] Address [address] [place] [id number] Care Team Providers Care Government Minister Name Role Phone Cosme Garcia Primary Care [...] 394 100 - 400 REASON FOR VISIT [facility] d/c f/u Medications Medication SIG (Take, Route, [...] UNITS) Active Mupirocin 2 % 1 application Revenue Specialist ally Twice a day 02/09/2025 Active BD [...] DAILY; Duration: 30 Active FreeStyle Jg 3 [place] - as directed 08/19/2024 Active FreeStyle Jg 3 Plus Sensor - Apply one sensor every 14 days; Duration: 28 days 08/16/2024 Active Problems Problem Type SNOMED Code ICD Code Onset Dates Problem Status W/U Status Risk Notes Problem Iron deficiency anemia due to chronic blood loss (183587961) Iron deficiency anemia due to chronic blood loss (D50.0) Active confirmed Problem Diabetic renal disease (375827974) Type 2 diabetes mellitus with diabetic chronic kidney disease, unspecified CKD stage, unspecified whether oil heaterman insulin use (E11.22) Active confirmed Problem Chronic kidney disease stage 3B (disorder) (990424544) Chronic kidney disease, stage 3b (N18.32) Active confirmed Vital Signs Weight 173 lbs 02/09/2025 Blood pressure systolic 122 mm Hg 02/10/20 25 Blood pressure diastolic 72 mm Hg 025 Heart Rate 81 /min 02/09/2025 Height 63 in 02/09/2025 BMI 30.64 kg/m2 02/09/2025 Encounters Encounter Location Date Provider Diagnosis [facility] [address] [place], [place] [id number] 02/09/2025 Cosme Garcia Iron deficiency anem ia due to chronic blood loss D50.0 ; Gastrointestinal hemorrhage, unspecified gastrointestinal hemorrhage type K92.2 ; Open wound of left lower leg, initial encounter S81.802A ; PAF (paroxysmal atrial fibrillation) I48.0 ; PAD (peripheral artery disease) I73.9 ; Type 2 diabetes mellitus with diabetic chronic kidney disease, unspecified CKD stage, unspecified whether [facility] insulin use E11.22 ; Chronic kidney disease, [...] kidney disease, unspecified CKD stage, unspecified whether oil heaterman insulin use (ICD-10 - E11.22) 02/09/2025 Chronic [...] Details Follow Up: 4 to 6 Weeks, [place] son: Provider Name:Cosme Amos ry, 07/25/2025 09:45:00 AM, [address], [address] , [place], [place], [id number], Progress Notes * Alec FERNANDEZOB: 9 (74 yo F)Acc No.[id number]:02/09/2025 Patient: Yesi UGALDE Provider: Damion Garcia M.D. :1950 A ge:74 Y S ex:Female Date:02/09/2025 Address:[address] [place] [address] [place], [id number] Subjective: * Chief Complaints: * 1 . [facility] d/c f/u. * HPI: H PI: Patient is here today for a Transition of Care Visit. Discharge from the following Facility: [facility] with diagnosis of Iron Deficiency Anemia, Dr. [...] 14 days , Taking FreeStyle Jg 3 [place] - Device as directed , Taking Jardiance [...] of left lower leg, initial encounter - S83.921V 4 . P AF (paroxysmal atrial fibrillation) - I48.0 5 . P AD (peripheral artery disease) - I73.9 6 . T ype 2 diabetes mellitus with diabetic chronic kidney disease, unspecified CKD stage, unspecified whether oil heaterman insulin use - E11.22 7 . C [...] G 2211 Complex e/[place], [address] [facility] 14 DAY DISCH, 1111F [facility] MED/CURENT MED MERGE, 32347 CAPILLARY BLOOD DRAW, 66060 CBC WITH AUTO DIFF, 1036F TOBACCO NON-USER, G8783 BP SCR PRFRM RCMDD DEFIND SCR INTVL, G8752 MOST RECENT SYSTOLIC BP < 140MM HG, G8754 MOST RECENT DIASTOLIC BP < 90MM HG * Follow Up: 4 to 6 Weeks * Images: Billing Information: * Visit Code: 12784 Office Visit, Est Pt., Level 4. * Procedure Codes: G2211 Complex e/[place]. [address] [facility] 14 DAY DISCH. 1111F [facility] MED/CURENT MED MERGE. 34606 CAPILLARY BLOOD DRAW. 79698 CBC WITH AUTO DIFF. 1036F TOBACCO NON-USER. G8783 BP SCR PRFRM RCMDD DEFIND SCR INTVL. G8752 MOST RECENT SYSTOLIC BP < 140MM HG. G8754 MOST RECENT DIASTOLIC BP < 90MM HG. * Electronic signature of Carol Garcia MD on 05/09/2025 at 04:51 PM EDT Sign off status: Pending * Provider: Damion Garcia M.D. Date: 0 02/09/2025 Generated for Alexander camp/Vamsi/Jakobitting on: 0 05/09/2025 04:51 PM EDT History and Physical Notes * HPI (History of Present Illness) Category Sub-Category Detail Notes Category Not es HPI Patient is here today for a [facility] sition of Care Visit. Discharge from the following Facility: [facility] with diagnosis of Iron Deficiency Anemia, Dr. [...]
--- OUTSIDE RECORDS SUMMARY | 2025-02-20 09:30 | XMS_ITS ---
Author Organization [facility] Address [facility] [address] [place] [phone] Care Team Providers Care Vice President Payment Name Role Phone Cosme Garcia Primary Care Provider REASON FOR VISIT 4 month check Encounters Encounter Location Date Provider Diagnosis [facility] [address] [place] [id number] 02/20/2025 Cosme Garcia Plan Of Treatment Next Appt Details Provider Name:Cosme Amos ry, 07/25/2025 09:45:00 AM, [address], [address], [place], [phone], Progress Notes * URIAHSwathiJenniferOB: 9 (74 yo F)Acc No.[id number]:02/20/2025 Progress Notes Patient: Yesi UGALDE Provider: Damion Garcia M.D. :1950 A ge:74 Y S ex:Female Date:02/20/2025 Address:[facility] [id number] Subjective: * Chief Complaints: * 1 . 4 month check. * Medical History: Objective: * Vitals: Assessment: Plan: * Treatment: * Images: Billing Information: * Visit Code: * Procedure Codes: * Electronic signature of Carol Garcia MD on 05/09/2025 at 04:52 PM EDT Sign off status: Pending * Provider: Damion Garcia M.D. Date: 02/20/2025 Generated for Alexander camp/Vamsi/eTransmitting on: 05/09/2025 04:52 PM EDT
--- OUTSIDE RECORDS SUMMARY | 2025-03-27 06:15 | XMS_ITS ---
Author Organization [facility] Address [address] [place] [phone] Care Team Providers Care Certified Scrum Master Name Role Phone Cosme Garcia Primary Care [...] Duration: 90 days Active FreeStyle Jg 3 [place] - as directed 08/19/2024 Active FreeStyle Jg [...] 2 times a day Active Vital Signs Weight 179.4 lbs 03/27/2025 Blood pressure systolic 130 mm Hg 03/27/20 25 Blood pressure diastolic 74 mm Hg 025 Heart Rate 91 /min 03/27/2025 Height 63 in 03/27/2025 BMI 31.78 kg/m2 03/27/2025 Encounters Encounter Location Date Provider Diagnosis [facility] [address] [facility] [address], [place] [phone] 03/27/2025 Cosme Garcia Type 2 diabetes darren [...] Amos , 07/25/2025 09:45:00 AM, [address] [facility] [address] [facility], [address] , [place], [place], [id number], Progress Notes * Swathi FERNANDEZJenniferOB: 9 (74 yo F)Acc No.[id number]:03/27/2025 Patient: Yesi UGALDE Provider: Damion Garcia M.D. :1950 A ge:74 Y S ex:Female Date:03/27/2025 Address:[address] [place] [address] [place], [id number] Subjective: * Chief Complaints: * 1 . [...] 14 days , Taking FreeStyle Jg 3 [place] - Device as directed , Taking Jardiance [...] G 2211 Complex e/[place], [address] CAPILLARY BLOOD DRAW, 01373 GLUCOSE TEST, 69677 GLYCATED HEMOGLOBIN TEST, Modifiers: QW , 3051F HG A1C>EQUAL 7.0%<8.0%, 1036F TOBACCO NON-USER, G8783 BP SCR PRFRM RCMDD DEFIND SCR INTVL, G8752 MOST RECENT SYSTOLIC BP < 140MM HG, G8754 MOST RECENT DIASTOLIC BP < 90MM HG * Follow Up: 4 Months * Images: Billing Information: * Visit Code: 73247 Office Visit, Est Pt., Level 3. * Procedure Codes: G2211 Complex e/[place]. [address] CAPILLARY BLOOD DRAW. 11023 GLUCOSE TEST. 97144 GLYCATED HEMOGLOBIN TEST. Modifiers: QW 3051F HG [...] 03/27/2025 Generated for [facility] camp/Vamsi/Yung on: 0 05/09/2025 04:51 PM EDT History [...]
--- OUTSIDE RECORDS SUMMARY | 2025-05-09 16:51 | XMS_ITS | Patient Health Record ---
[facility] Organization [facility] Address [address] [facility] [address] [place] [id number] Care Team Providers Care Tool Grinder Operator Name Role Phone Cosme Garcia Primary Care Provider [phone] Allergies No Known Allergies Results Component Value Reference Range Notes Hemoglobin/Hematocrit Reviewed date:02/25/2025 10:56:10 AM Interpretation: Performing Lab: Notes/Report: CBC Venipuncture (in house) Reviewed date:07/26/2024 03:18:46 PM Interpretation: Performing Lab: Notes/Report: P-Comprehensive Metabolic Pa luis (CMP) Reviewed date:07/22/2024 10:58:36 AM Interpretation:gluc 249, bun 25, Cr 1.23, gfr 46 Performing Lab: Notes/Report: Test performed by [facility] [address] [place] [address] , [address], [place] [address] Andrea Flores MD, Head Miller CLIA: [id number] Sodium 139 135-145 mmol/L Potassium 4.5 3.5-5.3 [...] Interpretation:Normal Performing Lab: Notes/Report: Test performed by [facility] [address] , [place] [address] Andrea Flores MD, Head Miller CLIA: [id number] Iron 65 37-145 ug/dL Transferrin 244 200-360 mg/dL Transferrin Saturation Percentage 19 15-50 % P-Reticulocyte Count Reviewed date:07/22/2024 10:58:36 AM Interpretation:2.2 Performing Lab: Notes/Report: Test performed by [facility] [address] [place] [address] , [place] [address] Andrea Flores MD, Head Miller CLIA: [id number] Reticulocyte Count 2.2 0.5-2.1 % H-BMP Reviewed date:07/18/2024 09:06:15 AM Interpretation: Performing [...] 1.2 0.0-0.4 K/mm3 BA# 0.1 0-0.2 K/mm3 Glycohemoglobin A1c (in hous e) Reviewed date:03/27/2025 12:21:30 PM Interpretation:7.4% Performing Lab: Notes/Report: 7.4% glycohemoglobin 7.4% 5 - 6.5 % Glucose (In-House) Reviewed date:03/27/2025 12:21:37 PM Interpretation:137 Performing Lab: Notes/Report: 137 blood glucose 137 74 - 106 mg/dL P-Microalbumin/Creatinine, R andom Urine Sample Reviewed date:10/24/2024 12:19:30 PM Interpretation:Album/Creat 65 Performing Lab: Notes/Report: Test performed by [facility] [address] [place] [address] , [address], [place] [address] Andrea Flores MD, Head Miller CLIA: [id number] Albumin/Creatinine Ratio, Urine 65 0-30 ug/mg Microalbumin, Urine, Random 3.5 Creatinine, Urine 54.1 P-TSH Reviewed date:10/24/2024 12:19:30 PM Interpretation:7.02 Performing Lab: Notes/Report: Test performed by [facility] [address] [place] [address] , [address], [place] [id number] Andrea Flores MD, Head Miller CLIA: [id number] TSH 7.02 0.43-5.25 mU/L P-Phosphorus Reviewed date:10/24/2024 12:19:30 PM Interpretation:Normal Performing Lab: Notes/Report: Test performed by [facility] [address] [place] [address] [address], [place] [address] Andrea Flores MD, Head Miller CLIA: [id number] Phosphorus 4.2 2.5-4.5 mg/dL P-Lipid Panel Reviewed date:10/24/2024 12:19:30 PM Interpretation:Normal Performing Lab: Notes/Report: Test performed by [facility] [address] [place] [address] [address], [place] [address] Andrea Flores MD, Head Miller CLIA: [id number] Cholesterol 167 <200 mg/dL Triglycerides 108 <150 [...] Interpretation:Normal Performing Lab: Notes/Report: Test performed by [facility] [address] [place] [address] , [address], [place] [address] Andrea Flores MD, Head Miller CLIA: [id number] Iron 42 37-145 ug/dL P-T4 Free (thyroxine) Reviewed date:10/24/2024 12:19:30 PM Interpretation:Normal Performing Lab: Notes/Report: Test performed by [facility] [address] , [address], [place] [address] Andrea Flores MD, Head Miller CLIA: [id number] Thyroxine Free (free T4) 1.66 0.86-1.76 ng/dL P-Comprehensive Metabolic Pa luis (CMP) Reviewed date:10/24/2024 12:19:30 PM Interpretation:glu 111, BUN 27, Creat 1.20, GFR 47 Performing Lab: Notes/Report: Test performed by [facility] [address] [place] [address] , [address], [place] [address] Andrea Flores MD, Head Miller CLIA: [id number] Sodium 144 135-145 mmol/L Potassium 4.4 3.5-5.3 [...] blood glucose 140 74 - 106 mg/dL H-Troponin I Reviewed date:01/24/2025 10:24:48 AM Interpretation: Performing Lab: Notes/Report: TROP 0.56 0.00-0.034 ng/ml CRITICAL RESULT Results called and read back/verified to: [facility] on 01/24/25 at 0710 By Nereida Matias, FLY RAISER LOCKSTITCH <0.012-0.034 ng/mL NORMAL 0.035 - >0.120 ng/mL [...] 37-170 ug/dL DTIBC 335 265-497 ug/dL IRONSAT 8.48473 15-55 % H-BMP Reviewed date:01/24/2025 10:24:48 AM [...] 0.0 0-0.2 K/mm3 NRBC# 0 IG# 0.04 H-Glycohemoglobin A1C Reviewed date:07/15/2024 10:22:34 AM Interpretation:8.2 Performing Lab: Notes/Report: HGBA1C 8.2 4.0-6.0 % < 6% Non-Diabetic Level < 7% Controlled Diabetic Level > 8% Poorly Controlled Diabetic Level H-TSH Reviewed date:07/15/2024 10:22:34 AM Interpretation:79.3 Performing Lab: Notes/Report: TSH 79.30 0.465-4.68 uIU/mL H-CBC Reviewed date:02/27/2025 04:40:28 PM Interpretation: Performing Lab: Notes/Report: WBC 7.8 4.8-10.8 K/mm3 RBC 3.24 4.20-5.40 M/mm3 Delta: 2.43 on 02/15/25-1220 HGB 8.9 12.2-16.2 g/dL Delta: 6.5 on [...] Post-Transf H/H other (specify) XM UNIT NUMBER: [id number] XM COMPATIBLE: Y XM PRODUCT: Red Blood Cells XM SOURCE: [facility] XM BLOOD TYPE: O Negative XM VOLUME: 250mL XM CROSSMATCH COMPONENTS: XMNOTE Notification Notified A FLORES by Marta July 02/15/25 165. [facility]. XM UNIT NUMBER: [id number] XM COMPATIBLE: Y XM PRODUCT: Red Blood Cells XM SOURCE: [facility] XM BLOOD TYPE: O Negative XM VOLUME: 250mL XM CROSSMATCH COMPONENTS: XMNOTE Notification Notified A FLORES by Marta July 02/15/25 165. Notified A FLORES by [facility] 02/15/25 165. H-Type and Screen Reviewed date:02/27/2025 04:40:28 PM Interpretation: Performing Lab: Notes/Report: Other not ordered RBC Product Order Reason Hgb/Hct <7/21 Timeframe for Post-Transf H/H other (specify) BT O Negative ABS NEGATIVE H-URC Reviewed date:02/27/2025 04:40:28 PM Interpretation: Performing Lab: Notes/Report: U500.0100 TRANSFUSED PRODUCT: Red Blood Cells COUNT: 2 M-Hemoglobin and Hematocrit Reviewed date:02/27/2025 04:40:27 PM Interpretation: Performing Lab: Notes/Report: HGB 9.3 12.2-16.2 g/dL HCT 30.7 37.0-47.0 % Urinalysis - Inhouse Reviewed date:06/22/2024 12:45:35 PM [...] Interpretation:26 Performing Lab: Notes/Report: Test performed by [facility] [address] [place] [address] , [address], [place] [address] Andrea Flores MD, Head Miller CLIA: [id number] Amylase 26 28-100 U/L P-Comprehensive Metabolic Pa luis (CMP) Reviewed date:06/24/2024 08:26:05 AM Interpretation:gluc 264, Cr 1.58, gfr 34 Performing Lab: Notes/Report: Test performed by [facility] [address] [place] [address] , [address], [place] [address] Andrea Flores MD, Head Miller CLIA: [id number] Sodium 140 135-145 mmol/L Potassium 4.6 3.5-5.3 [...] Interpretation:sensitive Performing Lab: Notes/Report: Test performed by [facility], [address] , [place] [address] Andrea Flores MD, Head Miller CLIA: [id number] Specimen Source Urine - Void Culture, Urine [...] Interpretation:0.52 Performing Lab: Notes/Report: Test performed by [facility] [address] [place] [address] , [address], [place] [address] Andrea Flores MD, Head Miller CLIA: [id number] Thyroxine Free (free T4) 0.52 0.86-1.76 ng/dL P-Lipase Reviewed date:06/24/2024 08:26:05 AM Interpretation:9.9 Performing Lab: Notes/Report: Test performed by [facility] [address] , [address], [place] [address] Andrea Flores MD, Head Miller CLIA: [id number] Lipase 9.9 13.0-60.0 u/L P-Troponin I Reviewed date:06/24/2024 08:24:15 AM Interpretation: Performing Lab: Notes/Report: E-Tgayzmnd-C Reviewed date:06/24/2024 08:26:05 AM Interpretation:24 Performing Lab: Notes/Report: Test performed by [facility] [address] , [address] [place] [id number] Andrea Flores MD, Head Miller CLIA: [id number] Troponin-T 24 <6-18 ng/L Patients who are prescribed biotin may exhibit elevated troponin results. Please interpret results accordingly. P-TSH reflex to FT4 Reviewed date:06/24/2024 08:26:05 AM Interpretation:95.3 Performing Lab: Notes/Report: Test performed by [facility] [address] [place] [address] , [address], [place] [address] Andrea Flores MD, Head Miller CLIA: [id number] TSH reflex to FT4 95.30 0.43-5.25 mU/L CBC Fingerstick (in house) Reviewed date:02/09/2025 03:06:35 [...] - 400 Type and Cross 2 units [facility] Reviewed date:02/16/2025 09:46:08 AM Interpretation: Performing Lab: Notes/Report: Reason For Referral No Information Medications Medication SIG (Take, Route, Frequency, Duration) Notes Start Date End Date Status Accu-Chek Amanda Plus w/Device as directed 12/04/2023 Active FreeStyle Jg 3 Plus Sensor - as directed 07/21/2024 Active Ondansetron 4 MG 1 tablet on the tong ue and allow to dissolve Orally three times a day as needed Active NovoLOG FlexPen 100 UNIT/ML SLIDING SCALE BEFORE MEALS UNDER THE SKIN DIRECTED (MAX DAILY DOSE IS 75 UNITS); Duration: 20 Active BD Swab Single Use Regular - [...] day 03/09/2019 A ctive FreeStyle Jg 3 [place] - as directed 08/19/2024 Active metFORMIN HCl [...] W/U Status Risk Notes Problem Essential hypertension (20760600) Essential (primary) hypertension (I10) Active confirmed Problem Hyperkalemia (13929032) Hyperkalemia (E87.5) Active confirmed Problem Essential hypertension (69448704) Essential hypertension (I10) Active confirmed Problem Body mass index 30+ - obesity (954039046) BMI 30.0-30.9,adult (Z68.30) Active confirmed Problem Overactive urinary bladder (disorder) (869779976) OAB (overactive bladder) (N32.81) Active confirmed Problem Hypoglycemia due to type 2 diabetes mellitus (634077321275199) Type 2 diabetes mellitus with hypoglycemia without coma (E11.649) Active confirmed Problem Mixed hyperlipidemia (097436075) Mixed hyperlipidemia (E78.2) Active confirmed Problem Chronic pulmonary edema (20056233) Chronic pulmonary edema (J81.1) Active confirmed Problem Long-term current use of insulin (159571344) retirement (current) use of insulin (Z79.4) Active confirmed Problem Type II diabetes mellitus without complication (425706901) Type 2 diabetes mellitus without complication (E11.9) Active confirmed Problem Acquired hypothyroidism (372712057) Acquired hypothyroidism (E03.9) Active confirmed Problem Obesity (783625298) Non morbid obesity due to excess calories (E66.09) Active confirmed Problem Atherosclerotic heart disease of [place] coronary artery without angina pectoris (617625094165722) Coronary artery disease involving [place] coronary artery of [place] heart without angina pectoris (I25.10) Active confirmed Problem Iron deficiency anemia due to chronic blood loss (397486658) Iron deficiency anemia due to chronic blood loss (D50.0) Active confirmed Problem Anemia (579928786) Anemia, unspecified type (D64.9) Active confirmed Problem Atrial fibrillation (30415736) PAF (paroxysmal atrial fibrillation) (I48.0) Active confirmed Problem Claudication (14876424) Claudication (I73.9) Active confirmed Problem Hyperlipidaemia (87276391) Hyperlipidemia, unspecified hyperlipidemia type (E78.5) Active confirmed Problem Atrial fibrillation (04546536) Atrial fibrillation with RVR (I48.91) Active confirmed Problem Recurrent falls (744372367) Frequent falls (R29.6) Active confirmed Problem Transient ischemic attack (685778679) TIA (transient ischemic attack) (G45.9) Active confirmed Problem Peripheral vascular disease (234365626) PAD (peripheral artery disease) (I73.9) Active confirmed Problem Atherosclerotic heart disease of [place] coronary artery without angina pectoris (490443856361113) Atherosclerosis of [place] coronary artery without angina pectoris, unspecified whether [place] or transplanted heart (I25.10) Active confirmed Problem Occlusion and stenosis of multiple and bilateral cerebral arteries (256435737) Bilateral carotid artery stenosis (I65.23) Active confirmed Problem Carotid artery occlusion (890996244) Stenosis of carotid artery, unspecified laterality (I65.29) Active confirmed Problem Obesity (862014677) Non morbid obesity (E66.9) Active confirmed Problem History of placement of stent for coronary artery disease (situation) (231129147) S/P coronary artery stent placement (Z95.5) Active confirmed Problem Type II diabetes mellitus without complication (992057383) Type 2 diabetes mellitus without complication, unspecified whether long lines operator insulin use (E11.9) Active confirmed Problem Hyperglycemia due to type 2 diabetes mellitus (025000068019982) Uncontrolled type 2 diabetes mellitus with hyperglycemia (E11.65) Active confirmed Problem Atherosclerosis of bilateral carotid arteries (disorder) (710560418355615) Bilateral carotid artery disease, unspecified type (I77.9) Active confirmed Problem Disorder of carotid artery (disorder) (271704067) Carotid artery disease, unspecified laterality, unspecified type (I77.9) Active confirmed Problem Diabetic renal disease (348570808) Type 2 diabetes mellitus with diabetic chronic kidney disease, unspecified CKD stage, unspecified whether prison insulin use (E11.22) Active confirmed Problem Chronic kidney disease stage 3B (disorder) (016468742) Chronic kidney disease, stage 3b (N18.32) Active confirmed Problem Chronic kidney disease stage 3A (177052960) Stage 3a chronic kidney disease (N18.31) Active confirmed Problem Urinary incontinence (909594554) Urinary incontinence in female (R32) Active confirmed Vital Signs Heart Rate 91 /min 03/27/2025 Blood pressure diastolic 74 mm Hg 03/27/2025 Height 63 in 03/27/2025 Blood pressure systolic 130 mm Hg 03/27/2025 Weight 179.4 lbs 03/27/2025 BMI 31.78 kg/m2 03/27/2025 Encounters Encounter Location Date Provider Diagnosis [facility] [address] [facility] [address] [place] [id number] 06/22/2024 Cosme Hague Nausea and vomiting, unspecified vomiting type R11.2 ; Intermittent diarrhea R19.7 ; Urinary incontinence in female R32 ; Periumbilical pain R10.33 ; Type 2 diabetes mellitus without complication E11.9 and Acute UTI N39.0 [facility] [address] [facility] [address] [place] [id number] 07/21/2024 Cosme Hague Nausea and vomiting, unspecified vomiting type R11.2 ; Anemia, unspecified type D64.9 ; Type 2 diabetes mellitus with hypoglycemia without coma E11.649 and terminal block assembler (current) use of insulin Z79.4 [facility] [address] [place] [address] [place] [id number] 08/31/2024 Cosme Hague Open wound of right heel, initial encounter S91.301A [facility] [address] [place] [id number] 10/21/2024 Cosme Hague Type 2 diabetes darren itus without complication E11.9 ; Essential hypertension I10 ; Stage 3a chronic kidney disease N18.31 ; Anemia, unspecified type D64.9 ; Acquired hypothyroidism E03.9 and Hyperlipidemia, unspecified hyperlipidemia type E78.5 [facility] [address] [place] [id number] 02/09/2025 Cosme Hague Iron deficiency anem ia due to chronic blood loss D50.0 ; Gastrointestinal hemorrhage, unspecified gastrointestinal hemorrhage type K92.2 ; Open wound of left lower leg, initial encounter S81.802A ; PAF (paroxysmal atrial fibrillation) I48.0 ; PAD (peripheral artery disease) I73.9 ; Type 2 diabetes mellitus with diabetic chronic kidney disease, unspecified CKD stage, unspecified whether long lines operator insulin use E11.22 ; Chronic kidney disease, stage 3b N18.32 and Non morbid obesity due to excess calories E66.09 [facility] [address] [place] [id number] 03/27/2025 Cosme Hague Type 2 diabetes darren itus without complication E11.9 and Hyperlipidemia, unspecified hyperlipidemia type E78.5 [facility] [address] [place], [place] [id number] 06/24/2024 Cosme Hague [facility] [address] [place], [place] [id number] 06/29/2024 Cosme Hague [facility] [address] [place], [place] [id number] 07/22/2024 Cosme Hague [facility] [address] [place] [id number] 08/04/2024 Cosme Hague [facility] [address] [place] [id number] 08/16/2024 Cosme Hague [facility] [address] [place] [id number] 08/19/2024 Cosme Hague [facility] [address] [place] [id number] 08/19/2024 Cosme Hague [facility] [address] [place] [id number] 08/25/2024 Cosme Hague [facility] [address] [place] [id number] 09/08/2024 Cosme Hague [facility] [address] [place], [place] [id number] 09/08/2024 Cosme Hague Type 2 diabetes darren itus with hypoglycemia without coma E11.649 [facility] [address] [place] [id number] 10/07/2024 Cosme Hague [facility] [address] [place] [id number] 10/24/2024 Cosme Hague [facility] [address] [place] [id number] 01/25/2025 Cosme Hague [facility] [address] [place] [id number] 02/15/2025 Cosme Hague Iron deficiency anem ia due to chronic blood loss D50.0 [facility] [address] [place] [id number] 02/21/2025 Cosme Hague Screening for osteop orosis Z13.820 [facility] [address] [place] [id number] 02/25/2025 Cosme Hague [facility] [address] [place] [id number] 03/31/2025 Cosme Hague [facility] [address] [place] [id number] 04/07/2025 Cosme Hague Type 2 diabetes darren itus without complication E11.9 Assessments Encounter Date Diagnosis (ICD Code) Assessment Notes Treatment Notes Treatment Clinical Notes Section Notes 06/22/2024 Nausea and vomiting, unspecified vomiting type (ICD-10 - R11.2) 06/22/2024 Intermittent diarrhea (ICD-10 - R19.7) 07/21/2024 Nausea and vomiting, unspecified vomiting type (ICD-10 - R11.2) 07/21/2024 Anemia, unspecified type (ICD-10 - D64.9) Patient may need to have an iron infusion 08/31/2024 Open wound of right heel, initial encounter (ICD-10 - S91.301A) 09/08/2024 Type 2 diabetes mellitus with hypoglycemia without coma (ICD-10 - E11.649) 10/21/2024 Type 2 diabetes mellitus without complication (ICD-10 - E11.9) 10/21/2024 Essential hypertension (ICD-10 - I10) 02/09/2025 Iron deficiency anemia due to chronic [...] R32) 06/22/2024 Periumbilical pain (ICD-10 - R10.33) 07/21/2024 terminal block assembler (current) use of insulin (ICD-10 - Z79.4) [...] kidney disease, unspecified CKD stage, unspecified whether long lines operator insulin use (ICD-10 - E11.22) 02/09/2025 Chronic [...] 12/18/2021 Next Appt Details Provider Name:Cosme pérez, 07/25/2025 09:45:00 AM, [address], [address], [place], [id number], Insurance Providers Payer Name Payer Address Payer Phone Subscriber Number Group Number Insured Name Patient Relationship to Insured Coverage Start Date Coverage End Date [employer] (MEDICAR E) [address] [address] [place] [address] [id number] Yesi Fernandez Self - patient is the [...]
--- OUTSIDE RECORDS SUMMARY | 2025-05-09 16:52 | XMS_ITS | Clinical Summary ---
Author Organization Healthcare Address [address] [place] [address] Care Team Providers Care Coding Quality Coordinator Name Role Phone Cosme Garcia MD Primary Care Provider + [phone] Allergies No known active allergies Medications metFORMIN [...] lisinopril. Right groin access, left neck incision PITCH GATHERER, WNL No heavy lifting (greater than 5 [...] Wellness (AWV) 1950 [facility]-/Child/Adol SDOH Screenings 1950 [id number] Vaccine (#1) 1955 [facility]- SDOH Screenings 1967 [...] this topic Medical Devices Implanted Type Area Card Lacer Device Identifier Shelf Expiration Date Model / Serial / Lot Stent Transcarotid System 9mm X 30mm - [id number] Implanted:Qty: 1 on 03/06/2021 by Leo Saleh MD at [facility]-[id number] 03/09/2023 SR-0930-C S / / [id number] Stent Transcarotid System 8mm X 30mm - [id number] Implanted:Qty: 1 on 10/22/2021 by Leo Saleh MD at [facility] Left: Carotid [facility]-[id number] 02/07/2024 SR-0830-C S / / [id number] Procedures Procedure Name Priority Date/Time Associated Diagnosis [...] Adults <6.0% Children and Adolescents <7.5% Source: [place] [employer]. Standards of medical care in diabetes,2017. Diabetes Care.2017:40 (suppl 1):S1-S135. HbA1c assay performed by an ion-exchange chromatography method that is certified traceable to the DCCT. Bob Brown MD LAB BLOOD ORDERABLES Final Re sult Performing Organization Address City/[facility] Co de Phone Number [facility]ARE [facility] [address] [place] [address] * Onia Hepatitis C Antibody (01/25/2021 2:56 PM EDT) [facility] Signature Hepatitis C Antibody Negative Negative 01/25/2021 5:15 PM EDT HEALTHCARE LAB Blood Venous blood specimen / Unknown Venipuncture / Unknown 01/25/2021 2:56 PM EDT 01/25/2021 3:04 PM EDT Bob Brown MD LAB BLOOD ORDERABLES Final Re sult Performing Organization Address [facility] de Phone Number [facility]ALTHCARE [facility] [address] [place] [address] from Last 3 Months or Most Recently Relevant to Health Maintenance Insurance [facility] MEDIC[facility] Advance Directives Documents on File Type Date Recorded 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 Yes Care Teams Coding Quality Coordinator Relationship Specialty Start Date End Date Cosme Garcia MD [address] [facility] [place] [address] [place] [address] PCP - General 01/24/21
--- OUTSIDE RECORDS SUMMARY | 2025-05-09 16:52 | XMS_ITS | Clinical Summary ---
Author Organization [facility] Address [address] [place] [address] Care Team Providers Care Search Director Name Role Phone Cosme Garcia MD Primary Care Provider [phone] Allergies No known active allergies Medications CYANOCOBALAMIN [...] controlling her portion sizes better -Counseled that longterm hyperglycemia can cause worsening neuropathy, kidney damage, [...] Description 05/29/2025 2:00 PM EDT Office Visit [facility] [address] [facility] [address] [place] [address] Howard Burgos DO [address] [place] [address] Health Maintenance Due Date Last [...] 1- dose 75+ series) 2024 INFLUENZA VACCINE 03/10/2025 06/14/2020, , 07/08/2018, Additional history exists COVID-19 Vaccine (2023-2 5 season) 2025 Procedures Procedure Name Priority Date/Time Associated Diagnosis Comments POCT GLYCOSYLATED HEMOGLOBIN (HGB A1C) Routine 06/27/2022 10:09 AM EST Type 2 diabetes mellitus with other circulatory complication, with long-term current use of insulin from Last 3 Months or Most Recently Relevant to Health Maintenance Results * POC Glycosylated Hemoglobin (Hb A1C) (06/27/2022 10:09 AM EST) Hemoglobin A1C 10.6 % [facility] Lot Number [id number] [facility] Expiration Date 04-23-24 [facility] Blood 06/27/2022 10:0 9 AM EST Bassam Krishnamurthy MD POINT OF CARE TEST ORDERABL ES Final Result [facility]
[address] [place] [id number], from Last 3 Months or Most Recently Relevant to Health Maintenance Insurance [employer] PPO Care Teams Search Director Relationship Specialty Start Date End Date Cosme Garcia MD [address] [facility] [address] [place] [address] PCP - General Family Medicine 01/04/21
[2025-05-09 17:15] LABS: Hematocrit 35.0 % (37.0-47.0); Hemoglobin 11.3 g/dL (12.2-16.2); Immature Granulocytes % 0.4 %; Mean Corpuscular HGB Conc 32.3 g/dL (31.8-35.4); Mean Corpuscular Hemoglobin 29.6 pg (27.0-31.2); Mean Corpuscular Volume 91.6 fl (81-99); Nucleated Red Blood Cells % 0 %; Platelet Count 263 K/mm3 (142-424); Red Blood Count 3.82 M/mm3 (4.20-5.40); Red Cell Distribution Width-SD 55.2 fL; White Blood Count 6.9 K/mm3 (4.8-10.8)
== END 2025-05-09 23:59 | disposition home or self-care (01) ==
LOC: LAB 16:49
PROVIDERS: PCP Family Medicine; Visit Provider Nurse Practitioner Family
DX: D64.9 Anemia, unspecified (principal)
CPT/HCPCS: 36415; 85025

== ENCOUNTER 2025-05-24 14:27 | Outpatient (CLI) | payer MEDICARE, OTHER, SELFPAY ==
[2025-05-24 14:33] LABS: Microscopic, Urine URINE MICROSCOPIC (MICROSCOPIC)
[2025-05-24 15:09] LABS: Hematocrit 38.0 % (37.0-47.0); Hemoglobin 11.8 g/dL (12.2-16.2); Immature Granulocytes % 0.6 %; Mean Corpuscular HGB Conc 31.1 g/dL (31.8-35.4); Mean Corpuscular Hemoglobin 28.8 pg (27.0-31.2); Mean Corpuscular Volume 92.7 fl (81-99); Nucleated Red Blood Cells % 0 %; Platelet Count 296 K/mm3 (142-424); Red Blood Count 4.10 M/mm3 (4.20-5.40); Red Cell Distribution Width-SD 52.9 fL; White Blood Count 8.5 K/mm3 (4.8-10.8)
[2025-05-24 15:46] LABS: Alanine Aminotransferase 20 U/L (12-78); Albumin Level 4.1 g/dl (3.5-5.0); Alkaline Phosphatase 104 U/L (38-126); Anion Gap 15.5 mEq/L (5-15); Aspartate Amino Transferase 24 U/L (14-36); Bilirubin,Direct 0.3 mg/dl (0.0-0.4); Bilirubin,Indirect 0.2 mg/dL (0.0-0.9); Bilirubin,Total 0.5 mg/dl (0.2-1.3); Bilirubin,Unconjugated 0.2 mg/dL (0.0-1.1); Blood Urea Nitrogen 24 mg/dl (7-17); Calcium 9.4 mg/dl (8.4-10.2); Carbon Dioxide 26 mmol/L (22.0-30.0); Chloride 105 mmol/L (98-107); Cholesterol 163 mg/dl (140-200); Creatine Kinase 325 U/L (30-135); Creatinine,Serum 1.20 mg/dl (0.52-1.04); Estimated Glomerular Filt Rate 44 ml/min (>60); GFR (African American) 53 ML/MIN (>60); Glucose 172 mg/dl (74-100); HDL Cholesterol 54 mg/dl (40-60); Magnesium 1.6 mg/dl (1.6-2.3); Potassium 4.5 mmoL/L (3.5-5.1); Sodium 142 mmol/L (136-145); Total Protein,Serum 7.0 g/dl (6.3-8.2); Triglycerides 150 mg/dl (30-150)
[2025-05-24 15:48] LABS: Bilirubin,Urine Negative (Negative); Color,Urine YELLOW (Yellow); Glucose,Urine (UA) 3+ (Negative); Ketones,Urine Negative (Negative); Leukocyte Esterase,Urine Negative (Negative); PH,Urine 5.5 (5.0-8.5); Protein,Urine Negative (Negative); Specific Gravity, Urine 1.015 (1.005-1.030); Urobilinogen,Urine 0.2 EU/dl (0.2)
[2025-05-24 16:20] LABS: Thyroid Stimulating Hormone 6.80 uIU/mL (0.465-4.68)
[2025-05-24 17:17] LABS: Free T4 (Free Thyroxine) 1.38 ng/dl (0.78-2.19)
[2025-05-24 17:18] LABS: Hemoglobin A1C 8.3 % (4.0-6.0)
[2025-05-24 19:36] LABS: Bacteria,Urine 4+ /lpf; RBC,Urine TNTC #/hpf (0-3); WBC,Urine TNTC #/hpf (0-3)
== END 2025-05-24 23:59 | disposition home or self-care (01) ==
PROVIDERS: PCP Family Medicine; Visit Provider Physician Assistant
DX: I25.10 Atherosclerotic heart disease of native coronary artery without angina pectoris (principal); I10 Essential (primary) hypertension; D50.9 Iron deficiency anemia, unspecified; I48.0 Paroxysmal atrial fibrillation; I73.9 Peripheral vascular disease, unspecified; R30.0 Dysuria; E11.9 Type 2 diabetes mellitus without complications; E78.5 Hyperlipidemia, unspecified; I65.29 Occlusion and stenosis of unspecified carotid artery
CPT/HCPCS: 36415; 80048; 80061; 80076; 81001; 82550; 83036; 83735; 84439; 84443; 85014; 85018; 85025; 87086; 87088; 87186

== ENCOUNTER 2025-07-17 11:14 | Outpatient (CLI) | payer MEDICARE, OTHER, SELFPAY ==
[2025-07-17 11:50] LABS: Hematocrit 36.8 % (37.0-47.0); Hemoglobin 11.5 g/dL (12.2-16.2); Immature Granulocytes % 0.8 %; Mean Corpuscular HGB Conc 31.3 g/dL (31.8-35.4); Mean Corpuscular Hemoglobin 28.7 pg (27.0-31.2); Mean Corpuscular Volume 91.8 fl (81-99); Nucleated Red Blood Cells % 0 %; Platelet Count 283 K/mm3 (142-424); Red Blood Count 4.01 M/mm3 (4.20-5.40); Red Cell Distribution Width-SD 50.2 fL; White Blood Count 6.0 K/mm3 (4.8-10.8)
[2025-07-17 12:03] LABS: Alanine Aminotransferase 19 U/L (12-78); Albumin Level 4.1 g/dl (3.5-5.0); Alkaline Phosphatase 100 U/L (38-126); Anion Gap 18.0 mEq/L (5-15); Aspartate Amino Transferase 28 U/L (14-36); Bilirubin,Direct 0.1 mg/dl (0.0-0.4); Bilirubin,Indirect 0.8 mg/dL (0.0-0.9); Bilirubin,Total 0.9 mg/dl (0.2-1.3); Bilirubin,Unconjugated 0.8 mg/dL (0.0-1.1); Blood Urea Nitrogen 35 mg/dl (7-17); Calcium 9.1 mg/dl (8.4-10.2); Carbon Dioxide 20 mmol/L (22.0-30.0); Chloride 108 mmol/L (98-107); Cholesterol 170 mg/dl (140-200); Creatinine,Serum 1.10 mg/dl (0.52-1.04); Estimated Glomerular Filt Rate 48 ml/min (>60); GFR (African American) 58 ML/MIN (>60); Glucose 128 mg/dl (74-100); HDL Cholesterol 41 mg/dl (40-60); Magnesium 1.7 mg/dl (1.6-2.3); Potassium 4.0 mmoL/L (3.5-5.1); Sodium 142 mmol/L (136-145); Total Protein,Serum 7.8 g/dl (6.3-8.2); Triglycerides 169 mg/dl (30-150)
[2025-07-17 12:17] LABS: NT Pro Brain Natriuretic Pep. 1040 pg/mL (0-450)
[2025-07-17 12:21] LABS: Troponin I 0.25 ng/ml (0.00-0.034)
[2025-07-17 12:36] LABS: Thyroid Stimulating Hormone 9.95 uIU/mL (0.465-4.68)
[2025-07-17 12:42] LABS: Free T4 (Free Thyroxine) 1.24 ng/dl (0.78-2.19)
== END 2025-07-17 23:59 | disposition home or self-care (01) ==
LOC: LAB 11:14
PROVIDERS: PCP Family Medicine; Visit Provider Physician Assistant
DX: I25.10 Atherosclerotic heart disease of native coronary artery without angina pectoris (principal); I65.23 Occlusion and stenosis of bilateral carotid arteries; I10 Essential (primary) hypertension; E78.2 Mixed hyperlipidemia; E11.69 Type 2 diabetes mellitus with other specified complication; D50.9 Iron deficiency anemia, unspecified; I48.0 Paroxysmal atrial fibrillation; Z95.818 Presence of other cardiac implants and grafts; I35.0 Nonrheumatic aortic (valve) stenosis
CPT/HCPCS: 36415; 80048; 80061; 80076; 83735; 83880; 84439; 84443; 84484; 85025